=== PATIENT | male | born 1950 | race African-American/Black ===

== ENCOUNTER 2016-12-16 13:02 | Inpatient (IN) | payer OTHER, MEDICARE ==
[~2016-12-16] VITALS: Ht 182.9 cm; Wt 162.6 kg
[~2016-12-16 13:02] MED LIST: AMLO10TA2 PO; COLC1CAP3 PO; FURO1TAB60 PO; HYDR50TA15 PO; LANTUS2P SQ; LISI-515 PO; METF1000 PO; OMEP40CA2 PO; PRED20 PO; SPIR25TA PO; TOPR100T PO; VENTAER INH; ZOCO40TA PO
[2016-12-16 13:32] VITALS: BP 141/82; PULSE 88; RESP 19; TEMP 98.1; O2SAT 97
[2016-12-16] MEDS ORDERED: SODIUM CHLORIDE 0.9% FLUSH 5 ML FLUSH IVF PRN (14:15)
--- NOTE | 2016-12-16 14:22 | PD ---
HPI Chief Complaint: General Weakness Time Seen by Provider: 14:19 Travel History International Travel<30 days: No Contact w/Intl Traveler<30days: No Traveled to known affect area: No History of Present Illness HPI Patient comes in by EMS complaining of bilateral lower extremity pain from his knees down. Patient denies any known trauma. Patient reports pain began approximately 4 days ago. Patient describes achy like pain radiates back and forth between his knees and ankles. Patient denies doing anything for this aside from taking his pain medication. Pain is worse with walking. Denies any fevers, chest pain, shortness of breath, dyspnea on exertion, or abdominal pain. Patient reports he is a diabetic and his blood sugars are running in the low 100s. PFSH Past Medical History Arthritis: Yes Blood Disorders: No Cancer: Yes (PROSTATE 5 YEARS AGO ) Cardiovascular Problems: Yes Chest Pain: Yes Congestive Heart Failure: Yes COPD: Yes Diabetes: Yes Patient Takes Glucophage: Yes Diminished Hearing: No Endocrine: Yes Gastrointestinal Disorders: Yes (MORBID OBESITY) Gout: Yes Genitourinary: Yes Hypertension: Yes Immune Disorder: No Implanted Vascular Access Dvce: No Musculoskeletal: Yes Neurologic: No Psychiatric: No Reproductive: No Respiratory: Yes Radiation Therapy: Yes Sleep Apnea: Yes Tetanus Vaccination: Unknown Influenza Vaccination: No Past Surgical History Other Surgery: Yes (RT HAND) Social History Alcohol Use: No Tobacco Use: Yes (1 PPD) Substance Use: No Allergies-Medications (Allergen,Severity, Reaction): Coded Allergies: *MDRO Multi-Drug Resistant Organism (Verified Adverse Reaction, Unknown, ) MRSA (wounds) - 03/20/13 MRSA PCR Screen NEGATIVE - 03/19/16, 03/21/2016 CLEARED PER INFECTION CONTROL Reported Meds & Prescriptions Reported Meds & Active Scripts Active Reported Amlodipine (Amlodipine Besylate) 10 Mg Tab 10 Mg PO DAILY Ventolin Hfa 18 GM Inh (Albuterol Sulfate) 90 Mcg/Act Aer 2 Puff INH Q6H PRN Lantus Inj (Insulin Glargine) 1,000 Unit/10 Ml Vial 55 Units SQ HS Zocor (Simvastatin) 40 Mg Tab 40 Mg PO HS Toprol XL (Metoprolol Succinate) 100 Mg Tab 100 Mg PO DAILY Lisinopril 20 Mg Tab 20 Mg PO DAILY Omeprazole 40 Mg Cap 40 Mg PO DAILY Metformin (Metformin HCl) 1,000 Mg Tab 1,000 Mg PO BID With meals Lasix (Furosemide) 40 Mg Tab 40 Mg PO DAILY Spironolactone 25 Mg Tab 25 Mg PO DAILY Hydralazine (Hydralazine HCl) 50 Mg Tab 50 Mg PO Q8HR Take with a meal Review of Systems Except as stated in HPI: all other systems reviewed are Neg Physical Exam Narrative GENERAL: Well-developed, overly nourished, in no acute distress, and non-ill appearing. SKIN: Warm and dry. HEAD: Atraumatic. Normocephalic. EYES: Pupils equal and round. EOMI. No scleral icterus. No injection or drainage. ENT: No nasal bleeding or discharge. Mucous membranes pink and moist. NECK: Trachea midline. Supple. No nuclear rigidity. CARDIOVASCULAR: Dorsal pulses also intact bilaterally. Capillary refill less than 2 seconds. Trace pedal edema bilaterally. RESPIRATORY: No accessory muscle use. No respiratory distress. MUSCULOSKELETAL: No obvious deformities. No clubbing. No cyanosis. Trace edema bilateral lower extremities. Full range of motion. Negative Homans sign. NEUROLOGICAL: Awake and alert. No obvious cranial nerve deficits. Motor grossly within normal limits. Normal speech. PSYCHIATRIC: Appropriate mood and affect; insight and judgment normal. Data Data Last Documented VS Vital Signs Date Time Temp Pulse Resp B/P Pulse Ox O2 Delivery O2 Flow Rate FiO2 12/16/16 17:59 84 18 138/85 98 Nasal Cannula 2 12/16/16 13:32 98.1 Orders Basic Metabolic Panel (Bmp) (12/16/16 14:13) Complete Blood Count With Diff (12/16/16 14:13) Ecg Monitoring (12/16/16 14:13) Iv Access Insert/Monitor (12/16/16 14:13) Oximetry (12/16/16 14:13) Sodium Chloride 0.9% Flush (Ns Flush) (12/16/16 14:15) Creatine Kinase (Cpk) (12/16/16 14:13) Act Partial Throm Time (Ptt) (12/16/16 14:18) Prothrombin Time / Inr (Pt) (12/16/16 14:18) D-Dimer (12/16/16 14:18) CKMB (12/16/16 14:25) CKMB% (12/16/16 14:25) Us Leg Venous Doppler Bilat (12/16/16 ) Acetamin-Hydrocod 325-5 Mg (Artemas 5-325 (12/16/16 15:45) Sodium Chlor 0.9% 1000 Ml Inj (Ns 1000 M (12/16/16 18:00) Labs Laboratory Tests Test 12/16/16 14:25 White Blood Count 13.2 TH/MM3 Red Blood Count 3.78 MIL/MM3 Hemoglobin 11.7 GM/DL Hematocrit 35.2 % Mean Corpuscular Volume 93.0 FL Mean Corpuscular Hemoglobin 31.0 PG Mean Corpuscular Hemoglobin 33.4 % Concent Red Cell Distribution Width 15.3 % Platelet Count 172 TH/MM3 Mean Platelet Volume 10.0 FL Neutrophils (%) (Auto) 74.5 % Lymphocytes (%) (Auto) 13.0 % Monocytes (%) (Auto) 11.3 % Eosinophils (%) (Auto) 0.5 % Basophils (%) (Auto) 0.7 % Neutrophils # (Auto) 9.8 TH/MM3 Lymphocytes # (Auto) 1.7 TH/MM3 Monocytes # (Auto) 1.5 TH/MM3 Eosinophils # (Auto) 0.1 TH/MM3 Basophils # (Auto) 0.1 TH/MM3 CBC Comment DIFF FINAL Differential Comment Prothrombin Time 11.2 SEC Prothromb Time International 1.0 RATIO Ratio Activated Partial 32.5 SEC Thromboplast Time D-Dimer Quantitative (PE/DVT) 9.60 MG/L FEU Sodium Level 143 MEQ/L Potassium Level 4.5 MEQ/L Chloride Level 109 MEQ/L Carbon Dioxide Level 22.5 MEQ/L Anion Gap 12 MEQ/L Blood Urea Nitrogen 46 MG/DL Creatinine 1.75 MG/DL Estimat Glomerular Filtration 48 ML/MIN Rate Random Glucose 116 MG/DL Calcium Level 8.9 MG/DL Total Creatine Kinase 2444 U/L Creatine Kinase MB 6.1 NG/ML Creatine Kinase MB % 0.2 % [facility] Medical Decision Making Medical Screen Exam Complete: Yes Emergency Medical Condition: Yes Differential Diagnosis Rhabdomyolysis, chronic pain, DVT, electrolyte abnormality, other Narrative Course Patient's [place] E-[employer] was reviewed no patient received a three-day supply of hydrocodone on the th of last month. Discussed this with patient reports he got refills medication has been taking it with no improvement of his symptoms. Patient was examined. Initial laboratory neurological status were ordered and reviewed. Discussed patient with Dr. Rice recommended the patient placed in observations for IV hydration and further evaluation of his rhabdo. Discussed all findings and plan care of patient, who is agreeable for admission. All questions were answered. Physician Communication Physician Communication [phone] Messer, who is agreeable to admit the patient. Diagnosis Primary Impression: Rhabdomyolysis Qualified Code: M62.82 - Non-traumatic rhabdomyolysis Martin Nunez Dec 16, 2016 14:22
[2016-12-16 14:40] LABS: AUTOMATED NEUTROPHIL # 9.8 TH/MM3 (1.8-7.7); BASOPHIL # 0.1 TH/MM3 (0-0.2); BASOPHIL % 0.7 % (0.0-2.0); EOSINOPHIL # 0.1 TH/MM3 (0-0.4); EOSINOPHIL % 0.5 % (0.0-4.0); HEMATOCRIT 35.2 % (39.0-51.0); HEMO FLAGS DIFF FINAL; LYMPHOCYTE # 1.7 TH/MM3 (1.0-4.8); MEAN CORPUSCULAR HGB CONC 33.4 % (32.0-36.0); MONO % 11.3 % (0.0-8.0); NEUT % 74.5 % (16.0-70.0); PLATELET COUNT 172 TH/MM3 (150-450); RED BLOOD COUNT 3.78 MIL/MM3 (4.50-5.90); RED CELL DISTRIBUTION WIDTH 15.3 % (11.6-17.2); WHITE BLOOD COUNT 13.2 TH/MM3 (4.0-11.0)
[2016-12-16 15:08] LABS: BICARBONATE 22.5 MEQ/L (21.0-32.0)
[2016-12-16 15:09] LABS: POTASSIUM 4.5 MEQ/L (3.5-5.1)
[2016-12-16 15:13] LABS: APTT (PATIENT) 32.5 SEC (24.3-30.1); PROTHROMBIN TIME - PATIENT 11.2 SEC (9.8-11.6)
[2016-12-16 15:42] LABS: CKMB 6.1 NG/ML (0.5-3.6)
[2016-12-16] MEDS ORDERED: ACETAMINOPHEN/HYDROcodone 325 MG/5 MG TAB PO ONE (15:45)
--- NOTE | 2016-12-16 17:38 | RADRPT ---
EXAM DATE/TIME: 12/16/2016 17:07 [facility] COMPARISON: No previous studies available for comparison. INDICATIONS : Bilateral lower extremity swelling. MEDICAL HISTORY : Congestive heart failure. Carcinoma, prostate. Chronic obstructive pulmonary disease. Chest pain. Sle ep apnea. Dyspnea. HTN. Morbid obesity. Arthritis. Gout. Diabetes. MRSA. SURGICAL HISTORY : Right carpel tunnel surgery. Right hand surgery. Radiation therapy. ENCOUNTER: Subsequent ACUITY: 4 - 6 days PAIN SCORE: 10/10 LOCATION: Bilateral leg. TECHNIQUE: Venous ultrasound of the left and right leg was performed from the inguinal ligament to the proximal calf. Real-time, color Doppler and spectral tracing, compression and augmentation techniques were us ed. FINDINGS: RIGHT LEG: There is normal compressibility of the deep venous system from the inguinal region to the proximal ca lf. No echogenic clot is seen in the lumen of the common femoral, femoral, popliteal, and posterior tibial veins. There is a normal response of the venous system to proximal and distal augmentation an d respiration. LEFT LEG: There is normal compressibility of the deep venous system from the inguinal region to the proximal ca lf. No echogenic clot is seen in the lumen of the common femoral, femoral, popliteal, and posterior tibial veins. There is a normal response of the venous system to proximal and distal augmentation an d respiration. CONCLUSION: Negative for deep venous thrombosis.. Alex Trejo MD FACR on December 16, 2016 at 17:34 Board Certified Radiologist. This report was verified electronically.
[2016-12-16 17:59] VITALS: BP 138/85; PULSE 84; RESP 18; O2SAT 98
[2016-12-16] MEDS ORDERED: SODIUM CHLOR 0.9% 1000 ML INJ 1,000 ML IV ONE (18:00)
--- NOTE | 2016-12-16 18:55 | HHI.HP ---
HPI Service [facility] Primary Care Physician JENNYFER Cummings Admission Diagnosis rhabdomyolysis Diagnoses: Chief Complaint: leg pain (Mamie Marrero) Travel History International Travel<30 Days: No Contact w/Intl Traveler <30 Da: No Traveled to Known Affected Are: No (Mamie Marrero) History of Present Illness This is a pleasant 65-year-old gentleman with past medical history which includes hypertension, diabetes mellitus, chronic back pain, morbid obesity, COPD does not wear supplemental oxygen, prostate cancer, CHF, chronic peripheral edema, renal insufficiency. Patient presented to the emergency room via EMS complaining of bilat lower extremity pain from the knees down, that started approximately 5 days ago, denies any falls, no trauma. Patient is somewhat of a poor historian, he is somnolent, information is obtained from the medical record. Patient indicates that he has been laying in bed, has had very little to eat and drink. He has history of osteoarthritis. Pain is achy, he does have chronic leg edema which is unchanged. Denies any chest pain, no excessive shortness of breath, no fever, no chills, no palpitations. Patient states that his legs hurt when he walks therefore he has not been very active. His brother and sister have come to his home to check on him. He endorses loose stools, non-watery, no abdominal pain, no nausea, no vomiting. Indicates his blood sugars have been running low in the 100s. He didn't take his medications today but has been compliant the rest of the other days. In the emergency room, patient was evaluated and was noted with acute renal injury, patient does have some renal insufficiency. He was notable leukocytosis, WBC of 13.2, hemoglobin 11.7, hematocrit 35.2. Patient was noted and rhabdomyolysis, CPK 2444. Ultrasound of the lower extremities were negative for DVT. Patient was hemodynamically stable, no fevers. Patient received 1 L of IV fluids. He received [place], indicates his pain is slightly improved. Patient is admitted for further evaluation and treatment. (Mamie Marrero) Review of Systems ROS Limitations: Poor Historian Cardiovascular: COMPLAINS OF: Dyspnea on Exertion, Lower Extremity Edema Gastrointestinal: COMPLAINS OF: Diarrhea Musculoskeletal: COMPLAINS OF: Joint pain (Mamie Marrero) Past Family Social History Past Medical History hypertension, diabetes mellitus, chronic back pain, morbid obesity, COPD does not wear supplemental oxygen prostate cancer treated with medication and radiation treatment CHF, chronic leg edema. Past Surgical History Right hand surgery 2, circumcision Reported Medications Reported Meds & Active Scripts Active Reported Amlodipine (Amlodipine Besylate) 10 Mg Tab 10 Mg PO DAILY Ventolin Hfa 18 GM Inh (Albuterol Sulfate) 90 Mcg/Act Aer 2 Puff INH Q6H PRN Lantus Inj (Insulin Glargine) 1,000 Unit/10 Ml Vial 55 Units SQ HS Zocor (Simvastatin) 40 Mg Tab 40 Mg PO HS Toprol XL (Metoprolol Succinate) 100 Mg Tab 100 Mg PO DAILY Lisinopril 20 Mg Tab 20 Mg PO DAILY Omeprazole 40 Mg Cap 40 Mg PO DAILY Metformin (Metformin HCl) 1,000 Mg Tab 1,000 Mg PO BID With meals Lasix (Furosemide) 40 Mg Tab 40 Mg PO DAILY Spironolactone 25 Mg Tab 25 Mg PO DAILY Hydralazine (Hydralazine HCl) 50 Mg Tab 50 Mg PO Q8HR Take with a meal (Mamie Marrero) Allergies: Coded Allergies: *MDRO Multi-Drug Resistant Organism (Verified Adverse Reaction, Unknown, ) MRSA (wounds) - 03/20/13 MRSA PCR Screen NEGATIVE - 03/19/16, 03/21/2016 CLEARED PER INFECTION CONTROL Active Ordered Medications Inpatient Medications Acetaminophen/ Hydrocodone Bitart 1 tab 1 tab ONCE ONCE PO Last administered on 12/16/16 15:52; Start 12/16/16 at 15:45; Stop 12/16/16 at 15:46; Status DC IV Flush (NS Flush) 2 ml UNSCH PRN IVF FLUSH AFTER USING IV ACCESS; Start 12/16 at 14:15 Sodium Chloride (NS 1000 ml Inj) 1,000 ml @ 999 mls/hr BOLUS ONCE IV Last administered on 12/16/16 18:03; Start 12/16/16 at 18:00; Stop 12/16/16 at 19:00 Family History Patient reports he never knew his father Mother at 39 secondary to breast cancer Social History Patient lives alone Denies EtOH use Denies illicit drug use Smokes 1 pack per day for the past 40 years (Mamie Marrero) Physical Exam Vital Signs Vital Signs Date Time Temp Pulse Resp B/P Pulse Ox O2 Delivery O2 Flow Rate FiO2 12/16/16 17:59 84 18 138/85 98 Nasal Cannula 2 12/16/16 13:33 Nasal Cannula 2 12/16/16 13:32 98.1 88 19 141/82 97 Physical Exam GENERAL: Morbidly obese male, somnolent, awakes to voice. SKIN: Skin dry, poor turgor. Skin to lower extremities is dry, chronic lymphedema, venous discoloration. Toe nails thickened, long. HEAD: Atraumatic. Normocephalic. No temporal or scalp tenderness. EYES: Pupils equal round and reactive. Extraocular motions intact. No scleral icterus. No injection or drainage. ENT: Nose without bleeding, purulent drainage or septal hematoma. Throat without erythema, tonsillar hypertrophy or exudate. Uvula midline. Airway patent. NECK: Trachea midline. No JVD or lymphadenopathy. Supple, nontender, no meningeal signs. CARDIOVASCULAR: S1-S2, unable to detect any murmurs rubs or gallops. Bilateral lower extremities with 1-2+ edema, pedal pulses +1 bilaterally. RESPIRATORY: Clear to auscultation. Breath sounds equal bilaterally. No wheezes , rales, or rhonchi. GASTROINTESTINAL: Abdomen soft, non-tender, nondistended. No hepato-splenomegaly , or palpable masses. No guarding. MUSCULOSKELETAL: Extremities without clubbing, cyanosis. C/O bilat knee pain with flexion, no joint deformity, no effusion. No calf tenderness. Negative Homans sign bilaterally. NEUROLOGICAL: Awakes to voice, oriented x 3. Poor historian. Following commands , no focal deficits. Laboratory Laboratory Tests Test 12/16/16 14:25 White Blood Count 13.2 Red Blood Count 3.78 Hemoglobin 11.7 Hematocrit 35.2 Mean Corpuscular Volume 93.0 Mean Corpuscular Hemoglobin 31.0 Mean Corpuscular Hemoglobin 33.4 Concent Red Cell Distribution Width 15.3 Platelet Count 172 Mean Platelet Volume 10.0 Neutrophils (%) (Auto) 74.5 Lymphocytes (%) (Auto) 13.0 Monocytes (%) (Auto) 11.3 Eosinophils (%) (Auto) 0.5 Basophils (%) (Auto) 0.7 Neutrophils # (Auto) 9.8 Lymphocytes # (Auto) 1.7 Monocytes # (Auto) 1.5 Eosinophils # (Auto) 0.1 Basophils # (Auto) 0.1 CBC Comment DIFF FINAL Differential Comment Prothrombin Time 11.2 Prothromb Time International 1.0 Ratio Activated Partial 32.5 Thromboplast Time D-Dimer Quantitative (PE/DVT) 9.60 Sodium Level 143 Potassium Level 4.5 Chloride Level 109 Carbon Dioxide Level 22.5 Anion Gap 12 Blood Urea Nitrogen 46 Creatinine 1.75 Estimat Glomerular Filtration 48 Rate Random Glucose 116 Calcium Level 8.9 Total Creatine Kinase 2444 Creatine Kinase MB 6.1 Creatine Kinase MB % 0.2 (Mamie Marrero) Result Diagram: 12/16/16 1425 12/16/16 1425 Imaging Last Impressions Lower Extremity Ultrasound 12/16/16 0000 Signed Impressions: Service Date/Time: Friday, December 16, 2016 17:07 - CONCLUSION: Negative for deep venous thrombosis.. Alex Trejo MD FACR (Mamie Marrero) Assessment and Plan Problem List: (1) Rhabdomyolysis (2) Szyaj-mg-cfupfqw kidney injury (3) Knee pain (4) Dehydration (5) Morbid obesity (6) Peripheral edema (7) Diabetes 1.5, managed as type 2 (8) Hx of congestive heart failure (9) HTN (hypertension) Assessment and Plan Admit to Dr. Messer 66-year-old morbidly obese male, presented to the emergency room complaining of bilateral knee pain, has been laying in bed, not been able to eat or drink much. In the emergency room, patient was evaluated and was noted with acute on chronic renal injury, elevated CPK consistent with rhabdomyolysis. Patient receptive 1 L of normal saline. -Continue with cautious hydration, history of CHF Follow BMP, CPK -Monitor renal function closely -reports diarrhea, will checks stools for cdiff Acute on chronic renal injury, secondary to dehydration, rhabdomyolysis Monitor renal function -Avoid NSAIDs, nephrotoxic agents, hold diuretics, hold metformin Bilateral knee pain, history of OA Pain management Type 2 diabetes Accu-Cheks before meals and at bedtime with low-dose insulin therapy as needed Chronic CHF, stable Monitor for fluid overload Resume diuretics when renal function is stable Hypertension, blood pressure stable Monitor blood pressure, resume medications as indicated Morbid obesity -Patient guidance counselor about his weight Heparin for DVT prophylaxis PPI for GI prophylaxis Physical therapy for evaluation and treatment Plan of care has been discussed with the patient, attending and registered nurse. Further management of the patient will be dependent on the hospital course This patient was seen by myself and Dr. Messer, this H&P is written on his behalf (Mamie Marrero) Assessment and Plan PT WAS SEEN & EXAMINED YESTERDAY FORGOT TO SIGN CHART d/w PT d/w ER PA d/w Mamie' agree w above will f/u (Mari Messer MD) Problem Qualifiers (1) Rhabdomyolysis: Qualified Code: M62.82 - Non-traumatic rhabdomyolysis (2) Knee pain: Qualified Code: M25.561 - Chronic pain of both knees (3) Morbid obesity: Qualified Code: E66.01 - Morbid obesity, unspecified obesity type (4) HTN (hypertension): Qualified Code: I10 - Essential hypertension Mamie Marrero Dec 16, 2016 18:55 Mari Messer MD Dec 17, 2016 09:32
[2016-12-16] MEDS ORDERED: NALOXONE HCL 0.4 MG/ML AMP IV PRN (19:00)
[2016-12-16] MEDS ORDERED: DEXTROSE 50% IN WATER 50 ML VIAL(D50) IV PUSH PRN (19:00)
[2016-12-16] MEDS ORDERED: SODIUM CHLORIDE 0.9% FLUSH 5 ML FLUSH FLUSH PRN (19:00)
[2016-12-16] MEDS ORDERED: ONDANSETRON HCL 4 MG/2 ML VIAL IVP PRN (19:00)
[2016-12-16] MEDS ORDERED: GLUCAGON 1 MG/ML VIAL OTHER PRN (19:00)
[2016-12-16 19:56] VITALS: BP 140/65; PULSE 80; RESP 18; O2SAT 98
[2016-12-16] MEDS: INSULIN ASPART SUPPLEMENTAL SCALE SQ SCH (21:00)
[2016-12-16] MEDS: SODIUM CHLORIDE 0.9% FLUSH 5 ML FLUSH FLUSH SCH (22:21)
[2016-12-16] MEDS: SODIUM CHLOR 0.9% 1000 ML INJ 1,000 ML IV SCH (22:22)
[2016-12-16] MEDS: hydrALAZINE HCL 50 MG TAB PO SCH (22:22)
[2016-12-16] MEDS: HEPARIN SODIUM - SQ 10,000 UNITS/ML VIAL SQ SCH (22:22)
[2016-12-16 22:30] VITALS: BP 155/78; PULSE 87; RESP 18; TEMP 98; O2SAT 98
[2016-12-17] VITALS (7 sets, daily range): BP systolic 128–155; BP diastolic 72–79; PULSE 67–96; RESP 20–21; TEMP 98–98.8; O2SAT 95–98
[2016-12-17] MEDS: hydrALAZINE HCL 50 MG TAB PO SCH ×3 (06:00→21:15)
[2016-12-17] MEDS: INSULIN ASPART SUPPLEMENTAL SCALE SQ SCH ×4 (06:18→21:00)
[2016-12-17 07:24] LABS: AUTOMATED NEUTROPHIL # 7.8 TH/MM3 (1.8-7.7); BASOPHIL # 0.1 TH/MM3 (0-0.2); BASOPHIL % 0.9 % (0.0-2.0); EOSINOPHIL # 0.3 TH/MM3 (0-0.4); EOSINOPHIL % 2.6 % (0.0-4.0); HEMATOCRIT 32.7 % (39.0-51.0); HEMO FLAGS DIFF FINAL; LYMPH % 15.1 % (9.0-44.0); LYMPHOCYTE # 1.7 TH/MM3 (1.0-4.8); MEAN CELL VOLUME 95.9 FL (80.0-100.0); MEAN CORPUSCULAR HEMOGLOBIN 30.4 PG (27.0-34.0); MEAN CORPUSCULAR HGB CONC 31.6 % (32.0-36.0); MONO % 11.7 % (0.0-8.0); NEUT % 69.7 % (16.0-70.0); PLATELET COUNT 166 TH/MM3 (150-450); RED BLOOD COUNT 3.41 MIL/MM3 (4.50-5.90); RED CELL DISTRIBUTION WIDTH 15.1 % (11.6-17.2); WHITE BLOOD COUNT 11.3 TH/MM3 (4.0-11.0)
[2016-12-17 07:54] LABS: BICARBONATE 25.1 MEQ/L (21.0-32.0); POTASSIUM 4.5 MEQ/L (3.5-5.1)
[2016-12-17 08:24] LABS: CKMB 2.9 NG/ML (0.5-3.6)
[2016-12-17] MEDS: SODIUM CHLORIDE 0.9% FLUSH 5 ML FLUSH FLUSH SCH ×2 (09:00→21:00)
--- NOTE | 2016-12-17 09:03 | HHI.PR ---
Subjective Remarks legs very weak, can't lift off bed right ankle is painful voiding okay no cp no sob no abd. pain no fever no acute changes overnight no diarrhea Objective Objective Results - Vital Signs Date Time Temp Pulse Resp B/P Pulse Ox O2 Delivery O2 Flow Rate FiO2 12/17/16 05:00 98.8 96 21 128/79 98 12/17/16 03:19 96 12/17/16 02:43 98.0 67 20 147/78 97 12/16/16 22:30 98.0 87 18 155/78 98 12/16/16 19:56 80 18 140/65 98 Nasal Cannula 2 12/16/16 17:59 84 18 138/85 98 Nasal Cannula 2 12/16/16 13:33 Nasal Cannula 2 12/16/16 13:32 98.1 88 19 141/82 97 I/O 12/16/16 12/16/16 12/16/16 12/17/16 12/17/16 12/17/16 07:00 15:00 23:00 07:00 15:00 23:00 Intake Total 240 ml Balance 240 ml Intake Oral 240 ml # Voids 2 Result Diagram: 12/17/16 0710 12/17/16 0710 Imaging Last Impressions Lower Extremity Ultrasound 12/16/16 0000 Signed Impressions: Service Date/Time: Friday, December 16, 2016 17:07 - CONCLUSION: Negative for deep venous thrombosis.. Alex Trejo MD FACR Other Results Laboratory Tests Test 12/16/16 12/17/16 14:25 07:10 White Blood Count 13.2 11.3 Red Blood Count 3.78 3.41 Hemoglobin 11.7 10.4 Hematocrit 35.2 32.7 Mean Corpuscular Volume 93.0 95.9 Mean Corpuscular Hemoglobin 31.0 30.4 Mean Corpuscular Hemoglobin 33.4 31.6 Concent Red Cell Distribution Width 15.3 15.1 Platelet Count 172 166 Mean Platelet Volume 10.0 9.7 Neutrophils (%) (Auto) 74.5 69.7 Lymphocytes (%) (Auto) 13.0 15.1 Monocytes (%) (Auto) 11.3 11.7 Eosinophils (%) (Auto) 0.5 2.6 Basophils (%) (Auto) 0.7 0.9 Neutrophils # (Auto) 9.8 7.8 Lymphocytes # (Auto) 1.7 1.7 Monocytes # (Auto) 1.5 1.3 Eosinophils # (Auto) 0.1 0.3 Basophils # (Auto) 0.1 0.1 CBC Comment DIFF FINAL DIFF FINAL Differential Comment Prothrombin Time 11.2 Prothromb Time International 1.0 Ratio Activated Partial 32.5 Thromboplast Time D-Dimer Quantitative (PE/DVT) 9.60 Sodium Level 143 145 Potassium Level 4.5 4.5 Chloride Level 109 113 Carbon Dioxide Level 22.5 25.1 Anion Gap 12 7 Blood Urea Nitrogen 46 41 Creatinine 1.75 1.35 Estimat Glomerular Filtration 48 64 Rate Random Glucose 116 133 Calcium Level 8.9 8.8 Total Creatine Kinase 2444 1148 Creatine Kinase MB 6.1 2.9 Creatine Kinase MB % 0.2 0.3 ROS General: Weakness Neuro/MS: Other (leg pain , right ankle pain ) Physical Exam Physical Exam GENERAL: Morbidly obese male, somnolent, awakes to voice. SKIN: Skin dry, poor turgor. Skin to lower extremities is dry, chronic lymphedema, venous discoloration. Toe nails thickened, long. HEAD: Atraumatic. Normocephalic. No temporal or scalp tenderness. EYES: Pupils equal round and reactive. Extraocular motions intact. No scleral icterus. No injection or drainage. ENT: Nose without bleeding, purulent drainage or septal hematoma. Throat without erythema, tonsillar hypertrophy or exudate. Uvula midline. Airway patent. NECK: Trachea midline. No JVD or lymphadenopathy. Supple, nontender, no meningeal signs. CARDIOVASCULAR: S1-S2, unable to detect any murmurs rubs or gallops. Bilateral lower extremities with 1-2+ edema, pedal pulses +1 bilaterally. RESPIRATORY: Bibasilar rales, no resp. distress GASTROINTESTINAL: Abdomen soft, non-tender, nondistended. No hepato-splenomegaly , or palpable masses. No guarding. MUSCULOSKELETAL: Extremities without clubbing, cyanosis. C/O bilat knee pain with flexion, no joint deformity, no effusion. No calf tenderness. Negative Homans sign bilaterally. Can't lift legs off bed, able to dorsiflex. C/O right ankle pain with dorsiflexion NEUROLOGICAL: Awakes to voice, oriented x 3. Poor historian. Following commands , no focal deficits. Urinary Catheter: No Vascular Central Line Catheter: No A/P Diagnosis: (1) Rhabdomyolysis (2) Cbizd-jm-rksriut kidney injury (3) Knee pain (4) Dehydration (5) Morbid obesity (6) Peripheral edema (7) Diabetes 1.5, managed as type 2 (8) Hx of congestive heart failure (9) HTN (hypertension) Assessment and Plan 66-year-old morbidly obese male, presented to the emergency room complaining of bilateral knee pain, has been laying in bed, not been able to eat or drink much. In the emergency room, patient was evaluated and was noted with acute on chronic renal injury, elevated CPK consistent with rhabdomyolysis. Patient receptive 1 L of normal saline. -Continue with cautious hydration, history of CHF, oct. IVF to 30/hr. CPK trending down, continue to monitor -Monitor renal function closely-improving. Acute on chronic renal injury, secondary to dehydration, rhabdomyolysis Monitor renal function -Avoid NSAIDs, nephrotoxic agents, hold diuretics, hold metformin Bilateral knee pain, history of OA Pain management -c/o right ankle pain, will check xray 3 view Type 2 diabetes Accu-Cheks before meals and at bedtime with low-dose insulin therapy as needed Chronic CHF, stable Monitor for fluid overload, rales noted at bases -Oct. IVF to KVO Resume diuretics today Hypertension, blood pressure stable Monitor blood pressure, resume medications as indicated Morbid obesity -Patient admitting counselor about his weight Heparin for DVT prophylaxis PPI for GI prophylaxis Physical therapy for evaluation and treatment-d/w therapist, pt. barely able to stand, very deconditioned. Change to inpatient admission, pt. at risk for complications due to comorbidities-obesity, CHF, DM II, CKD. Pt. may go into renal failure, develop pressure sores, further disability. Requires admission for IVF, monitoring of renal function, PT. Anticipated discharge back to home with HHC/PT vs SNF when stable. D/W RN D/W Dr. Messer D/W pt. This patient was seen by myself and Dr. Messer, this note is written on his behalf Problem Qualifiers (1) Rhabdomyolysis: Qualified Code: M62.82 - Non-traumatic rhabdomyolysis (2) Knee pain: Qualified Code: M25.561 - Chronic pain of both knees (3) Morbid obesity: Qualified Code: E66.01 - Morbid obesity, unspecified obesity type (4) HTN (hypertension): Qualified Code: I10 - Essential hypertension Mamie Marrero Dec 17, 2016 09:03
[2016-12-17] MEDS: PANTOPRAZOLE SOD 40 MG DELAYED RELEASE TAB PO SCH (09:56)
[2016-12-17] MEDS: METOPROLOL SUCCINATE 50 MG EXTENDED RELEASE TAB PO SCH (09:56)
[2016-12-17] MEDS: HEPARIN SODIUM - SQ 10,000 UNITS/ML VIAL SQ SCH ×2 (09:57→21:15)
[2016-12-17] MEDS: FUROSEMIDE 40 MG TAB PO SCH (09:57)
[2016-12-17] MEDS: SPIRONOLACTONE 25 MG TAB PO SCH (10:36)
--- NOTE | 2016-12-17 13:10 | RADRPT ---
EXAM DATE/TIME: 12/17/2016 12:17 [facility] COMPARISON: No previous studies available for comparison. INDICATIONS : Right ankle pain, no known injury. MEDICAL HISTORY : Arthritis. Gout. Diabetes. SURGICAL HISTORY : None. ENCOUNTER: Initial ACUITY: 3 days PAIN SCORE: 7/10 LOCATION: Right ankle. FINDINGS: Soft tissue swelling is present in a diffuse fashion. There is no evidence of acute fracture. Bony mi neralization is normal. There is dorsal beaking of the tarsal bones. CONCLUSION: Mild degenerative changes as described above. There is no evidence of acute fracture. Ji Wellington MD on December 17, 2016 at 13:07 Board Certified Radiologist. This report was verified electronically.
[2016-12-17] MEDS: SODIUM CHLOR 0.9% 1000 ML INJ 1,000 ML IV SCH (20:00)
[2016-12-17] MEDS: ACETAMINOPHEN 325 MG TAB PO PRN (21:16)
[2016-12-18] VITALS (8 sets, daily range): BP systolic 130–155; BP diastolic 65–85; PULSE 68–87; RESP 18–20; TEMP 97.4–98.8; O2SAT 94–98
[2016-12-18] MEDS: hydrALAZINE HCL 50 MG TAB PO SCH ×3 (05:36→21:03)
[2016-12-18] MEDS: INSULIN ASPART SUPPLEMENTAL SCALE SQ SCH ×4 (05:41→21:00)
[2016-12-18 07:48] LABS: HEMATOCRIT 31.2 % (39.0-51.0); MEAN CELL VOLUME 95.2 FL (80.0-100.0); MEAN CORPUSCULAR HEMOGLOBIN 30.8 PG (27.0-34.0); MEAN CORPUSCULAR HGB CONC 32.4 % (32.0-36.0); PLATELET COUNT 165 TH/MM3 (150-450); RED BLOOD COUNT 3.28 MIL/MM3 (4.50-5.90); REVIEW FLAG FINAL; WHITE BLOOD COUNT 9.7 TH/MM3 (4.0-11.0)
[2016-12-18 08:14] LABS: BICARBONATE 24.8 MEQ/L (21.0-32.0); POTASSIUM 4.6 MEQ/L (3.5-5.1)
[2016-12-18 08:31] LABS: CKMB 1.2 NG/ML (0.5-3.6)
--- NOTE | 2016-12-18 08:49 | HHI.PR ---
Subjective History of Present Illness feel little better legs are less painful , able to move them better no fever or chills no CP or SOB no cough or sputum no n/v good appetite no diarrhea offers no other c/o Vitals/Results Intake & Output 12/17/16 12/17/16 12/18/16 15:00 23:00 07:00 Intake Total 1210 ml Output Total 1240 ml Balance -30 ml Intake Oral 1110 ml IV Total 100 ml Output Urine Total 1240 ml # Bowel Movements 1 Vital Signs Vital Signs Date Time Temp Pulse Resp B/P Pulse Ox O2 Delivery O2 Flow Rate FiO2 12/18/16 05:33 98.0 82 18 147/77 98 12/18/16 01:38 98.8 87 18 141/73 98 12/17/16 22:18 16 12/17/16 21:07 98.0 78 21 155/74 97 12/17/16 21:00 80 12/17/16 12:58 98.2 83 20 153/72 95 CBC/BMP: 12/18/16 0620 12/18/16 0620 Lab Results Laboratory Tests Test 12/18/16 06:20 White Blood Count 9.7 TH/MM3 Red Blood Count 3.28 MIL/MM3 Hemoglobin 10.1 GM/DL Hematocrit 31.2 % Mean Corpuscular Volume 95.2 FL Mean Corpuscular Hemoglobin 30.8 PG Mean Corpuscular Hemoglobin 32.4 % Concent Red Cell Distribution Width 15.0 % Platelet Count 165 TH/MM3 Mean Platelet Volume 10.8 FL Sodium Level 144 MEQ/L Potassium Level 4.6 MEQ/L Chloride Level 112 MEQ/L Carbon Dioxide Level 24.8 MEQ/L Anion Gap 7 MEQ/L Blood Urea Nitrogen 39 MG/DL Creatinine 1.22 MG/DL Estimat Glomerular Filtration 72 ML/MIN Rate Random Glucose 125 MG/DL Calcium Level 8.3 MG/DL Total Creatine Kinase 414 U/L Creatine Kinase MB 1.2 NG/ML Creatine Kinase MB % 0.3 % Physical Exam General General Appearance: No Acute Distress, Comfortable, Obese Eyes Eye Exam: Pupils Equal, Sclera White, Extraocular Movement Intact Ears & Nose Ears & Nose Exam: Nasal Mucosa [place] Throat Throat Exam: Oral Mucosa [place] & Moist Neck Neck Exam: Neck Supple, Trachea Midline Pulmonary Resp Exam: Clear Bilaterally, Breath Sounds Equal Cardiology CV Exam: Regular, Normal Sinus Rhythm Gastrointestinal/Abdomen GI Exam: Soft, Non-Tender, Bowel Sounds Present Integumentary Skin Exam: Warm, Dry Skin Remarks thickened discolored skin b/l south Extremeties Extremities Exam: Moderate Edema, Pitting Edema Neurologic Neuro Exam: Alert, Awake, Oriented, Speech Clear, Moving All Extremities Psychiatric Psych Exam: Appropriate Responses VTE Prophylaxis VTE Prophylaxis Meds: Heparin PUD Prophylasis PUD Prophylaxis: Protonix Assessment/Plan Assessment/Plan \ Diagnosis: (1) Acute Rhabdomyolysis likely d/t statin (2) Evppw-je-qrsibxs kidney injury (3) Knee pain/b/l lower ext pain d/t Rhabdo (4) Dehydration (5) Morbid obesity (6) ch venous insuffiency / ch Pedal edema (7) Diabetes 1.5, managed as type 2 (8) Hx of congestive heart failure (9) HTN (hypertension) (10)Hypercholesterolemia Assessment and Plan 66-year-old morbidly obese male, presented to the emergency room complaining of bilateral knee pain, has been laying in bed, not been able to eat or drink much. In the emergency room, patient was evaluated and was noted with acute on chronic renal injury, elevated CPK consistent with rhabdomyolysis. - d/c ivf . - cpk BETTER - Monitor renal function --improving. Acute on chronic renal injury, secondary to dehydration & rhabdomyolysis - better Monitor renal function -Avoid NSAIDs, nephrotoxic agents, hold diuretics, hold metformin Bilateral leg pain d/t Rhabdo , improving Pain management -c/o right ankle pain, - xray , no evid of fractue , Mild DJD Type 2 diabetes - diabetic diet . 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
[2016-12-18] MEDS: SODIUM CHLORIDE 0.9% FLUSH 5 ML FLUSH FLUSH SCH ×2 (09:00→21:00)
[2016-12-18] MEDS: HEPARIN SODIUM - SQ 10,000 UNITS/ML VIAL SQ SCH ×2 (10:53→21:04)
[2016-12-18] MEDS: ACETAMINOPHEN 325 MG TAB PO PRN (10:53)
[2016-12-18] MEDS: FUROSEMIDE 40 MG TAB PO SCH (10:54)
[2016-12-18] MEDS: METOPROLOL SUCCINATE 50 MG EXTENDED RELEASE TAB PO SCH (10:54)
[2016-12-18] MEDS: PANTOPRAZOLE SOD 40 MG DELAYED RELEASE TAB PO SCH (10:55)
[2016-12-18] MEDS: SPIRONOLACTONE 25 MG TAB PO SCH (10:58)
[2016-12-18] MEDS: SODIUM CHLOR 0.9% 1000 ML INJ 1,000 ML IV SCH (20:00)
[2016-12-19] VITALS (8 sets, daily range): BP systolic 132–189; BP diastolic 76–97; PULSE 69–85; RESP 17–19; TEMP 97.6–98.9; O2SAT 93–97
[2016-12-19] MEDS: hydrALAZINE HCL 50 MG TAB PO SCH ×3 (06:08→22:37)
[2016-12-19] MEDS: INSULIN ASPART SUPPLEMENTAL SCALE SQ SCH ×4 (06:08→21:00)
--- NOTE | 2016-12-19 10:08 | HHI.PR ---
Subjective History of Present Illness feel better leg pain is better but they are still weak no fever or chills no CP or SOB no cough or sputum no n/v good appetite no diarrhea offers no other c/o Vitals/Results Intake & Output 12/18/16 12/18/16 12/19/16 15:00 23:00 07:00 Intake Total 1440 ml Output Total 1500 ml Balance -60 ml Intake Oral 1440 ml Output Urine Total 1500 ml # Voids 1 # Bowel Movements 0 Vital Signs Vital Signs Date Time Temp Pulse Resp B/P Pulse Ox O2 Delivery O2 Flow Rate FiO2 12/19/16 07:30 97.6 76 17 166/90 95 12/19/16 04:00 98.9 85 19 155/76 97 12/18/16 22:57 98.0 78 18 130/74 98 12/18/16 20:30 98.8 78 18 147/78 97 12/18/16 20:00 74 12/18/16 15:43 97.4 68 18 149/73 95 12/18/16 12:00 98.2 70 20 155/85 94 12/18/16 11:53 20 CBC/BMP: 12/18/16 0620 12/18/16 0620 Physical Exam General General Appearance: No Acute Distress, Comfortable, Obese Eyes Eye Exam: Pupils Equal, Sclera White, Extraocular Movement Intact Ears & Nose Ears & Nose Exam: Nasal Mucosa [place] Throat Throat Exam: Oral Mucosa [place] & Moist Neck Neck Exam: Neck Supple, Trachea Midline Pulmonary Resp Exam: Clear Bilaterally, Breath Sounds Equal Cardiology CV Exam: Regular, Normal Sinus Rhythm Gastrointestinal/Abdomen GI Exam: Soft, Non-Tender, Bowel Sounds Present Integumentary Skin Exam: Warm, Dry Skin Remarks thickened discolored skin b/l south Extremeties Extremities Exam: Moderate Edema, Pitting Edema Neurologic Neuro Exam: Alert, Awake, Oriented, Speech Clear, Moving All Extremities Psychiatric Psych Exam: Appropriate Responses VTE Prophylaxis VTE Prophylaxis Meds: Heparin PUD Prophylasis PUD Prophylaxis: Protonix Assessment/Plan Assessment/Plan \ Diagnosis: (1) Acute Rhabdomyolysis likely d/t statin (2) Laqvk-xx-wbtbnkw kidney injury (3) Knee pain/b/l lower ext pain d/t Rhabdo (4) Dehydration (5) Morbid obesity (6) ch venous insuffiency / ch Pedal edema (7) Diabetes 1.5, managed as type 2 (8) Hx of congestive heart failure (9) HTN (hypertension) (10)Hypercholesterolemia Assessment and Plan 66-year-old morbidly obese male, presented to the emergency room complaining of bilateral knee pain, has been laying in bed, not been able to eat or drink much. In the emergency room, patient was evaluated and was noted with acute on chronic renal injury, elevated CPK consistent with rhabdomyolysis. - Off ivf . - cpk BETTER - Renal function --improving. Acute on chronic renal injury, secondary to dehydration & rhabdomyolysis - better Monitor renal function -Avoid NSAIDs, nephrotoxic agents, hold diuretics, hold metformin Bilateral leg pain d/t Rhabdo , improving Pain management -c/o right ankle pain, - xray , no evid of fractue , Mild DJD - Analgesic prn Type 2 diabetes - diabetic diet . 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
[2016-12-19] MEDS ORDERED: ACET325T PO (10:32)
[2016-12-19] MEDS ORDERED: HEPA10003 SQ (10:32)
[2016-12-19] MEDS: PANTOPRAZOLE SOD 40 MG DELAYED RELEASE TAB PO SCH (11:21)
[2016-12-19] MEDS: FUROSEMIDE 40 MG TAB PO SCH (11:21)
[2016-12-19] MEDS: SPIRONOLACTONE 25 MG TAB PO SCH (11:21)
[2016-12-19] MEDS: SODIUM CHLORIDE 0.9% FLUSH 5 ML FLUSH FLUSH SCH ×2 (11:22→22:37)
[2016-12-19] MEDS: METOPROLOL SUCCINATE 50 MG EXTENDED RELEASE TAB PO SCH (11:22)
[2016-12-19] MEDS: HEPARIN SODIUM - SQ 10,000 UNITS/ML VIAL SQ SCH ×2 (11:22→22:37)
[2016-12-19] MEDS: SODIUM CHLOR 0.9% 1000 ML INJ 1,000 ML IV SCH (22:38)
[2016-12-20] VITALS (8 sets, daily range): BP systolic 129–168; BP diastolic 78–87; PULSE 58–79; RESP 17–24; TEMP 97.6–98.4; O2SAT 94–96
[2016-12-20] MEDS: ACETAMINOPHEN 325 MG TAB PO PRN (01:20)
[2016-12-20] MEDS: SODIUM CHLOR 0.9% 1000 ML INJ 1,000 ML IV SCH (03:00)
[2016-12-20] MEDS: hydrALAZINE HCL 50 MG TAB PO SCH ×3 (06:46→21:30)
[2016-12-20] MEDS: INSULIN ASPART SUPPLEMENTAL SCALE SQ SCH ×4 (06:48→21:00)
[2016-12-20] MEDS: FUROSEMIDE 40 MG TAB PO SCH (08:27)
[2016-12-20] MEDS: SPIRONOLACTONE 25 MG TAB PO SCH (08:27)
[2016-12-20] MEDS: HEPARIN SODIUM - SQ 10,000 UNITS/ML VIAL SQ SCH ×2 (08:27→21:30)
[2016-12-20] MEDS: METOPROLOL SUCCINATE 50 MG EXTENDED RELEASE TAB PO SCH (08:27)
[2016-12-20] MEDS: PANTOPRAZOLE SOD 40 MG DELAYED RELEASE TAB PO SCH (08:27)
[2016-12-20] MEDS: SODIUM CHLORIDE 0.9% FLUSH 5 ML FLUSH FLUSH SCH ×2 (08:28→21:31)
--- NOTE | 2016-12-20 09:58 | HHI.PR ---
Subjective History of Present Illness I am OK leg pain is better but they are still weak no fever or chills no CP or SOB no cough or sputum no n/v good appetite c/o constipation offers no other c/o Vitals/Results Intake & Output 12/19/16 12/19/16 12/20/16 15:00 23:00 07:00 Output Total 225 ml Balance -225 ml Output Urine Total 225 ml Vital Signs Vital Signs Date Time Temp Pulse Resp B/P Pulse Ox O2 Delivery O2 Flow Rate FiO2 12/20/16 04:46 98.2 72 24 168/82 95 12/20/16 00:56 98.4 79 20 153/85 94 12/19/16 20:30 142/80 12/19/16 20:00 69 12/19/16 19:35 98.2 78 18 180/95 93 12/19/16 16:30 75 12/19/16 15:44 98.0 73 18 132/83 96 12/19/16 11:17 98.2 81 19 189/97 95 CBC/BMP: 12/18/16 0620 12/18/16 0620 Physical Exam General General Appearance: No Acute Distress, Comfortable, Obese Eyes Eye Exam: Pupils Equal, Sclera White, Extraocular Movement Intact Ears & Nose Ears & Nose Exam: Nasal Mucosa [place] Throat Throat Exam: Oral Mucosa [place] & Moist Neck Neck Exam: Neck Supple, Trachea Midline Pulmonary Resp Exam: Clear Bilaterally, Breath Sounds Equal Cardiology CV Exam: Regular, Normal Sinus Rhythm Gastrointestinal/Abdomen GI Exam: Soft, Non-Tender, Bowel Sounds Present Integumentary Skin Exam: Warm, Dry Skin Remarks thickened discolored skin b/l south Extremeties Extremities Exam: Moderate Edema, Pitting Edema Neurologic Neuro Exam: Alert, Awake, Oriented, Speech Clear, Moving All Extremities Psychiatric Psych Exam: Appropriate Responses VTE Prophylaxis VTE Prophylaxis Meds: Heparin PUD Prophylasis PUD Prophylaxis: Protonix Assessment/Plan Assessment/Plan \ Diagnosis: (1) Acute Rhabdomyolysis likely d/t statin (2) Djnsb-qm-iykshrl kidney injury (3) Knee pain/b/l lower ext pain d/t Rhabdo (4) Dehydration (5) Morbid obesity (6) ch venous insuffiency / ch Pedal edema (7) Diabetes 1.5, managed as type 2 (8) Hx of congestive heart failure (9) HTN (hypertension) (10)Hypercholesterolemia Assessment and Plan 66-year-old morbidly obese male, presented to the emergency room complaining of bilateral knee pain, has been laying in bed, not been able to eat or drink much. In the emergency room, patient was evaluated and was noted with acute on chronic renal injury, elevated CPK consistent with rhabdomyolysis. - Off ivf . - cpk BETTER - Renal function --improving. Acute on chronic renal injury, secondary to dehydration & rhabdomyolysis - better Monitor renal function -Avoid NSAIDs, nephrotoxic agents, Bilateral leg pain d/t Rhabdo , improving Pain management -c/o right ankle pain, - xray , no evid of fractue , Mild DJD - Analgesic prn Type 2 diabetes - diabetic diet . 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
[2016-12-20] MEDS ORDERED: MAGNESIUM CITRATE SOLN 300 ML BTL PO ONE (10:30)
[2016-12-20] MEDS ORDERED: MILKSUS PO (10:31)
[2016-12-20] MEDS ORDERED: COLA100C3 PO (10:31)
[2016-12-20] MEDS ORDERED: HYDR50TA15 PO (10:31)
--- NOTE | 2016-12-20 18:45 | HHI.DS ---
Discharge Summary Admission Date Dec 17, 2016 at 09:39 Discharge Date: Dec 20, 2016 Admitting Diagnosis rhabdomyolysis (1) Rhabdomyolysis Diagnosis: Principal (2) Ssalw-nh-pwfgkop kidney injury Diagnosis: Principal (3) Knee pain Diagnosis: Secondary (4) Dehydration Diagnosis: Secondary (5) Morbid obesity Diagnosis: Secondary (6) Peripheral edema Diagnosis: Secondary (7) Diabetes 1.5, managed as type 2 Diagnosis: Principal (8) Hx of congestive heart failure Diagnosis: Secondary (9) HTN (hypertension) Diagnosis: Secondary Procedures none Brief History This was a pleasant 65-year-old gentleman with past medical history which includes hypertension, diabetes mellitus, chronic back pain, morbid obesity, COPD does not wear supplemental oxygen, prostate cancer, CHF, chronic peripheral edema, renal insufficiency. Patient presented to the emergency room via EMS complaining of bilat lower extremity pain from the knees down, that started approximately 5 days ago, denies any falls, no trauma. Patient was somewhat of a poor historian, he was somnolent, information is obtained from the medical record. Patient indicates that he had been laying in bed, had very little to eat and drink. He had history of osteoarthritis. Pain was achy, he does have chronic leg edema which was unchanged. Denies any chest pain, no excessive shortness of breath, no fever, no chills, no palpitations. Patient states that his legs hurt when he walks therefore he has not been very active. His brother and sister have come to his home to check on him. He endorses loose stools, non-watery, no abdominal pain, no nausea, no vomiting. Indicates his blood sugars have been running low in the 100s. He didn't take his medications day of admission, but had been compliant the rest of the other days. CBC/BMP: 12/18/16 0620 12/18/16 0620 Significant Findings Laboratory Tests Test 12/18/16 06:20 Red Blood Count 3.28 MIL/MM3 (4.50-5.90) Hemoglobin 10.1 GM/DL (13.0-17.0) Hematocrit 31.2 % (39.0-51.0) Chloride Level 112 MEQ/L (98-107) Blood Urea Nitrogen 39 MG/DL (7-18) Estimat Glomerular Filtration 72 ML/MIN (>89) Rate Random Glucose 125 MG/DL (74-106) Calcium Level 8.3 MG/DL (8.5-10.1) Total Creatine Kinase 414 U/L (39-308) Imaging Last Impressions Ankle X-Ray 12/17/16 0000 Signed Impressions: Service Date/Time: Saturday, December 17, 2016 12:17 - CONCLUSION: Mild degenerative changes as described above. There is no evidence of acute fracture. Ji Wellington MD Lower Extremity Ultrasound 12/16/16 0000 Signed Impressions: Service Date/Time: Friday, December 16, 2016 17:07 - CONCLUSION: Negative for deep venous thrombosis.. Alex Trejo MD FACR PE at Discharge Physical Exam General General Appearance: No Acute Distress, Comfortable, Obese Eyes Eye Exam: Pupils Equal, Sclera White, Extraocular Movement Intact Ears & Nose Ears & Nose Exam: Nasal Mucosa [place] Throat Throat Exam: Oral Mucosa [place] & Moist Neck Neck Exam: Neck Supple, Trachea Midline Pulmonary Resp Exam: Clear Bilaterally, Breath Sounds Equal Cardiology CV Exam: Regular, Normal Sinus Rhythm Gastrointestinal/Abdomen GI Exam: Soft, Non-Tender, Bowel Sounds Present Integumentary Skin Exam: Warm, Dry Skin Remarks thickened discolored skin b/l south Extremeties Extremities Exam: Moderate Edema, Pitting Edema Neurologic Neuro Exam: Alert, Awake, Oriented, Speech Clear, Moving All Extremities Psychiatric Psych Exam: Appropriate Responses VTE Prophylaxis VTE Prophylaxis Meds: Heparin PUD Prophylasis PUD Prophylaxis: Protonix Hospital Course In the emergency room, patient was evaluated and was noted with acute renal injury, patient does have some renal insufficiency. He was notable leukocytosis , WBC of 13.2, hemoglobin 11.7, hematocrit 35.2. Patient was noted and rhabdomyolysis, CPK 2444. Ultrasound of the lower extremities were negative for DVT. Patient was hemodynamically stable, no fevers. Patient received 1 L of IV fluids. He received [place], indicates his pain is slightly improved. Patient is admitted for further evaluation and treatment. This treatment plan included this problem lists. (1) Acute Rhabdomyolysis likely d/t statin (2) Gjuvg-xh-dzmotsk kidney injury (3) Knee pain/b/l lower ext pain d/t Rhabdo (4) Dehydration (5) Morbid obesity (6) ch venous insuffiency / ch Pedal edema (7) Diabetes 1.5, managed as type 2 (8) Hx of congestive heart failure (9) HTN (hypertension) (10)Hypercholesterolemia Renal function --improved with medicines and monitoring of labs. NSAIDs were avoided. Bilateral leg pain was monitored and treated meds./pain managemen c/o right ankle pain during hospital stay, xray done showing no evidivence of fractue , Mild DJD Type 2 diabetes managed with- diabetic diet. His metformin on hold. Accu-Cheks before meals and at bedtime with low-dose insulin therapy as needed Monitor for fluid overload, rales noted at bases on exam. cont diuretics, lasix/aldactone , cont BB/CCB Hypertension,/ blood pressure remained stable. Hydralazine used for BP control Patient education counselor about his weight. Pt Condition on Discharge: Stable Discharge Disposition: Discharge to SNF Discharge Instructions DIET: Follow Instructions for: Heart Healthy Diet, Diabetic Diet Fluid Restrictions: 1600cc Activities you can perform: Regular-No Restrictions Other Activity Instructions: fall precautions Follow up Referrals: PCP Follow-up - 1 Week New Medications: Docusate Sodium (Colace) 100 Mg Cap 100 MG PO BID Constipation #60 Ref 0 CAP Magnesium Hydroxide Liq (Milk of Magnesia Liq) 400 Mg/5 Ml Susp 30 ML PO DAILY PRN CONSTIPATION #1 Ref 0 BOTTLE Acetaminophen (Acetaminophen) 325 Mg Tab 650 MG PO q6h PRN TEMP > 100.4 #20 TAB Heparin Sodium (Porcine) (Heparin Sodium) 10,000 Unit/Ml Inj 5000 UNITS SQ Q12HR dvt prophylaxis #20 INJECTION Hydralazine (Hydralazine) 50 Mg Tab 100 MG PO Q8HR htn #90 TAB Continued Medications: Albuterol 18 GM Inh (Ventolin Hfa 18 GM Inh) 90 Mcg/Act Aer 2 PUFF INH Q6H PRN SHORTNESS OF BREATH Ref 0 INHALER Amlodipine (Amlodipine) 10 Mg Tab 10 MG PO DAILY Blood Pressure Management TAB Furosemide (Lasix) 40 Mg Tab 40 MG PO DAILY TAB Insulin Glargine Inj (Lantus Inj) 1,000 Unit/10 Ml Vial 55 UNITS SQ HS Blood Sugar Management VIAL Lisinopril (Lisinopril) 20 Mg Tab 20 MG PO DAILY TAB Metformin (Metformin) 1,000 Mg Tab 1000 MG PO BID With meals Blood Sugar Management TAB Metoprolol Succinate ER 24 HR (Toprol XL) 100 Mg Tab 100 MG PO DAILY TAB Omeprazole (Omeprazole) 40 Mg Cap 40 MG PO DAILY CAP Spironolactone (Spironolactone) 25 Mg Tab 25 MG PO DAILY TAB Discontinued Medications: Hydralazine (Hydralazine) 50 Mg Tab 50 MG PO Q8HR Take with a meal Blood Pressure Management TAB Simvastatin (Zocor) 40 Mg Tab 40 MG PO HS Cholesterol Management TAB Additional Information Discharge orders sent to [facility] with patient. Mendy Christian Dec 20, 2016 18:45 25 MG PO DAILY TAB Discontinued Medications: Hydralazine (Hydralazine) 50 Mg Tab 50 MG PO Q8HR Take with a meal Blood Pressure Management TAB Simvastatin (Zocor) 40 Mg Tab 40 MG PO HS Cholesterol Management TAB Mendy Christian Dec 20, 2016 18:45
[2016-12-21] VITALS (8 sets, daily range): BP systolic 136–160; BP diastolic 67–90; PULSE 62–75; RESP 18–20; TEMP 97.5–98.1; O2SAT 93–95
[2016-12-21] MEDS: hydrALAZINE HCL 50 MG TAB PO SCH ×3 (05:58→21:21)
[2016-12-21] MEDS: INSULIN ASPART SUPPLEMENTAL SCALE SQ SCH ×4 (05:59→20:32)
[2016-12-21] MEDS: SPIRONOLACTONE 25 MG TAB PO SCH (08:45)
[2016-12-21] MEDS: FUROSEMIDE 40 MG TAB PO SCH (08:45)
[2016-12-21] MEDS: PANTOPRAZOLE SOD 40 MG DELAYED RELEASE TAB PO SCH (08:45)
[2016-12-21] MEDS: METOPROLOL SUCCINATE 50 MG EXTENDED RELEASE TAB PO SCH (08:46)
[2016-12-21] MEDS: SODIUM CHLORIDE 0.9% FLUSH 5 ML FLUSH FLUSH SCH ×2 (08:46→20:33)
[2016-12-21] MEDS: HEPARIN SODIUM - SQ 10,000 UNITS/ML VIAL SQ SCH ×2 (08:46→20:33)
--- NOTE | 2016-12-21 17:23 | HHI.PR ---
Subjective History of Present Illness pt was not d/c /awaiting approval for SNF by insurance feels much better legs are getting stronger & less painful no fever or chills no CP or SOB no cough or sputum no n/v good appetite offers no other c/o Vitals/Results Intake & Output 12/20/16 12/20/16 12/21/16 15:00 23:00 07:00 Intake Total 480 ml 360 ml 480 ml Output Total 800 ml 200 ml 450 ml Balance -320 ml 160 ml 30 ml Intake Oral 480 ml 360 ml 480 ml Output Urine Total 800 ml 200 ml 450 ml # Bowel Movements 1 Vital Signs Vital Signs Date Time Temp Pulse Resp B/P Pulse Ox O2 Delivery O2 Flow Rate FiO2 12/21/16 16:30 97.7 65 19 160/90 95 12/21/16 12:09 97.5 62 20 136/84 93 12/21/16 08:00 97.8 65 20 150/80 94 12/21/16 04:00 98.0 67 20 154/78 94 12/21/16 00:00 98.1 72 20 149/67 94 12/20/16 20:00 61 12/20/16 20:00 97.6 66 20 129/78 95 CBC/BMP: 12/18/16 0620 12/18/16 0620 Physical Exam General General Appearance: No Acute Distress, Comfortable, Obese Eyes Eye Exam: Pupils Equal, Sclera White, Extraocular Movement Intact Ears & Nose Ears & Nose Exam: Nasal Mucosa [place] Throat Throat Exam: Oral Mucosa [place] & Moist Neck Neck Exam: Neck Supple, Trachea Midline Pulmonary Resp Exam: Clear Bilaterally, Breath Sounds Equal Cardiology CV Exam: Regular, Normal Sinus Rhythm Gastrointestinal/Abdomen GI Exam: Soft, Non-Tender, Bowel Sounds Present Integumentary Skin Exam: Warm, Dry Skin Remarks thickened discolored skin b/l south Extremeties Extremities Exam: Moderate Edema, Pitting Edema Neurologic Neuro Exam: Alert, Awake, Oriented, Speech Clear, Moving All Extremities Psychiatric Psych Exam: Appropriate Responses VTE Prophylaxis VTE Prophylaxis Meds: Heparin PUD Prophylasis PUD Prophylaxis: Protonix Assessment/Plan Assessment/Plan \ Diagnosis: (1) Acute Rhabdomyolysis likely d/t statin (2) Pwjol-pb-boamlzq kidney injury (3) Knee pain/b/l lower ext pain d/t Rhabdo (4) Dehydration (5) Morbid obesity (6) ch venous insuffiency / ch Pedal edema (7) Diabetes 1.5, managed as type 2 (8) Hx of congestive heart failure (9) HTN (hypertension) (10)Hypercholesterolemia Assessment and Plan 66-year-old morbidly obese male, presented to the emergency room complaining of bilateral knee pain, has been laying in bed, not been able to eat or drink much. In the emergency room, patient was evaluated and was noted with acute on chronic renal injury, elevated CPK consistent with rhabdomyolysis. - Off ivf . - cpk BETTER - Renal function --improving. Acute on chronic renal injury, secondary to dehydration & rhabdomyolysis - better Monitor renal function -Avoid NSAIDs, nephrotoxic agents, Bilateral leg pain d/t Rhabdo , improving Pain management -c/o right ankle pain, - xray , no evid of fractue , Mild DJD - Analgesic prn Type 2 diabetes - diabetic diet . 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
[2016-12-22] VITALS: BP 148/79; PULSE 82; RESP 18; TEMP 97.8; O2SAT 96
[2016-12-22] MEDS: SODIUM CHLOR 0.9% 1000 ML INJ 1,000 ML IV SCH (03:00)
[2016-12-22 04:21] VITALS: BP 154/98; PULSE 75; RESP 20; TEMP 98; O2SAT 94
[2016-12-22] MEDS: hydrALAZINE HCL 50 MG TAB PO SCH ×2 (05:18→15:18)
[2016-12-22] MEDS: INSULIN ASPART SUPPLEMENTAL SCALE SQ SCH ×2 (05:22→11:00)
[2016-12-22 08:00] VITALS: BP_SYST 139; BP_SYST 146; BP_DIAS 70; BP_DIAS 89; PULSE 56; PULSE 73; PULSE 77; RESP 18; RESP 20; TEMP 97.5; TEMP 98; O2SAT 93; O2SAT 97
[2016-12-22 08:48] LABS: BICARBONATE 29.1 MEQ/L (21.0-32.0); POTASSIUM 4.9 MEQ/L (3.5-5.1)
[2016-12-22] MEDS: SODIUM CHLORIDE 0.9% FLUSH 5 ML FLUSH FLUSH SCH (09:00)
[2016-12-22] MEDS: HEPARIN SODIUM - SQ 10,000 UNITS/ML VIAL SQ SCH (09:00)
[2016-12-22] MEDS: METOPROLOL SUCCINATE 50 MG EXTENDED RELEASE TAB PO SCH (09:27)
[2016-12-22] MEDS: SPIRONOLACTONE 25 MG TAB PO SCH (09:27)
[2016-12-22] MEDS: PANTOPRAZOLE SOD 40 MG DELAYED RELEASE TAB PO SCH (09:27)
[2016-12-22] MEDS: FUROSEMIDE 40 MG TAB PO SCH (09:27)
[2016-12-22] MEDS: ACETAMINOPHEN 325 MG TAB PO PRN ×2 (09:30→10:30)
--- NOTE | 2016-12-22 10:10 | HHI.PR ---
Subjective History of Present Illness when can I get out of here ? I am ok legs are getting stronger & less painful able to stand & walk short distance now no fever or chills no CP or SOB no cough or sputum no n/v good appetite offers no other c/o Vitals/Results Intake & Output 12/21/16 12/21/16 12/22/16 15:00 23:00 07:00 Intake Total 360 ml 240 ml Output Total 400 ml 600 ml Balance -40 ml -360 ml Intake Oral 360 ml 240 ml Output Urine Total 400 ml 600 ml # Bowel Movements 1 0 Vital Signs Vital Signs Date Time Temp Pulse Resp B/P Pulse Ox O2 Delivery O2 Flow Rate FiO2 12/22/16 08:00 97.5 73 20 146/89 93 12/22/16 08:00 98.0 77 18 139/70 97 12/22/16 04:21 98.0 75 20 154/98 94 12/22/16 00:00 97.8 82 18 148/79 96 12/21/16 21:21 74 12/21/16 20:00 98.0 74 18 142/77 95 12/21/16 16:30 97.7 65 19 160/90 95 12/21/16 12:09 97.5 62 20 136/84 93 CBC/BMP: 12/18/16 0620 12/22/16 0710 Lab Results Laboratory Tests Test 12/22/16 07:10 Sodium Level 140 MEQ/L Potassium Level 4.9 MEQ/L Chloride Level 105 MEQ/L Carbon Dioxide Level 29.1 MEQ/L Anion Gap 6 MEQ/L Blood Urea Nitrogen 25 MG/DL Creatinine 1.11 MG/DL Estimat Glomerular Filtration 81 ML/MIN Rate Random Glucose 116 MG/DL Calcium Level 8.8 MG/DL Physical Exam General General Appearance: No Acute Distress, Comfortable, Obese Eyes Eye Exam: Pupils Equal, Sclera White, Extraocular Movement Intact Ears & Nose Ears & Nose Exam: Nasal Mucosa Outlook Throat Throat Exam: Oral Mucosa Outlook & Moist Neck Neck Exam: Neck Supple, Trachea Midline Pulmonary Resp Exam: Clear Bilaterally, Breath Sounds Equal Cardiology CV Exam: Regular, Normal Sinus Rhythm Gastrointestinal/Abdomen GI Exam: Soft, Non-Tender, Bowel Sounds Present Integumentary Skin Exam: Warm, Dry Skin Remarks thickened discolored skin b/l south Extremeties Extremities Exam: Moderate Edema, Pitting Edema Neurologic Neuro Exam: Alert, Awake, Oriented, Speech Clear, Moving All Extremities Psychiatric Psych Exam: Appropriate Responses VTE Prophylaxis VTE Prophylaxis Meds: Heparin PUD Prophylasis PUD Prophylaxis: Protonix Assessment/Plan Assessment/Plan \ Diagnosis: (1) s/p Acute Rhabdomyolysis d/t statin (2) Eoemf-wy-qlxfpeg renal failure , improved acute comp d/t Rhabdo/ pre renal azotemia , (3) Knee pain/b/l lower ext pain d/t Rhabdo (4) Dehydration (5) Morbid obesity (6) ch venous insuffiency / ch Pedal edema (7) Diabetes 1.5, managed as type 2 (8) Hx of congestive heart failure (9) HTN (hypertension) (10)Hypercholesterolemia Assessment and Plan 66-year-old morbidly obese male, presented to the emergency room complaining of bilateral knee pain, has been laying in bed, not been able to eat or drink much. In the emergency room, patient was evaluated and was noted with acute on chronic renal injury, elevated CPK consistent with rhabdomyolysis. - cpk BETTER - Renal function --improving. Acute on chronic renal injury, secondary to dehydration & rhabdomyolysis - better Monitor renal function -Avoid NSAIDs, nephrotoxic agents, Bilateral leg pain d/t Rhabdo , improving Pain management -c/o right ankle pain, - xray , no evid of fractue , Mild DJD - Analgesic prn Type 2 diabetes - diabetic diet . 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
[2016-12-22 12:00] VITALS: BP 153/87; PULSE 67; RESP 20; TEMP 97.4; O2SAT 93
== END 2016-12-22 16:10 | DRG 558 ==
LOC: NEDAMB 13:02 → NEDA 18:19 → NEPGCP 20:16 → OBSVTOIN 12-17 09:39 → N04A 12-20 04:46
PROVIDERS: ADMIT Specialist; ATTEND Specialist
DX: M62.82 Rhabdomyolysis (principal); N17.9 Acute kidney failure, unspecified; E11.22 Type 2 diabetes mellitus with diabetic chronic kidney disease; I13.0 Hypertensive heart and chronic kidney disease with heart failure and stage 1 through stage 4 chronic kidney disease, or unspecified chronic kidney disease; I50.32 Chronic diastolic (congestive) heart failure; Z68.42 Body mass index [BMI] 45.0-49.9, adult; J44.9 Chronic obstructive pulmonary disease, unspecified; E66.01 Morbid (severe) obesity due to excess calories; E86.0 Dehydration; N18.9 Chronic kidney disease, unspecified; G89.29 Other chronic pain; M54.9 Dorsalgia, unspecified; M19.90 Unspecified osteoarthritis, unspecified site; M25.561 Pain in right knee; M25.562 Pain in left knee; R60.0 Localized edema; R19.7 Diarrhea, unspecified; E78.00 Pure hypercholesterolemia, unspecified; K59.00 Constipation, unspecified; L60.2 Onychogryphosis; Z92.3 Personal history of irradiation; Z79.84 Long term (current) use of oral hypoglycemic drugs; Z79.4 Long term (current) use of insulin; F17.210 Nicotine dependence, cigarettes, uncomplicated; Z85.46 Personal history of malignant neoplasm of prostate
CPT/HCPCS: 73610; 80048; 82550; 82552; 82948; 85025; 85027; 85379; 85610; 85730; 93970; G0378; G8987-GP; G8988-GP; J1644; J7030

== ENCOUNTER 2017-03-18 14:43 | Inpatient (IN) | payer OTHER, MEDICARE ==
[~2017-03-18] VITALS: Ht 185.4 cm; Wt 177.9 kg
[~2017-03-18 14:43] MED LIST changes: +ACET325T PO; +COLA100C3 PO; -COLC1CAP3 PO; +HEPA10003 SQ; +MILKSUS PO; -PRED20 PO; -ZOCO40TA PO
[2017-03-18 14:45] VITALS: BP 173/81; PULSE 71; RESP 20; TEMP 98.6; O2SAT 95
--- NOTE | 2017-03-18 14:59 | PD ---
Physical Exam Date Seen by Provider: Mar 18, 2017 Narrative Pt presents with c/o chest pain, SOB since yesterday. SOB and pain are exacerbated with movement. He reports the pain is a 6/10. VSS, protocol initiated. Data Data Last Documented VS Vital Signs Date Time Temp Pulse Resp B/P Pulse Ox O2 Delivery O2 Flow Rate FiO2 03/18/17 14:45 98.6 71 20 173/81 95 Room Air [facility] Supervised Visit with BIRDIE: Yumiko Escalera Mar 18, 2017 14:59
[2017-03-18] MEDS ORDERED: SODIUM CHLORIDE 0.9% FLUSH 10 ML FLUSH IVF PRN (15:00)
--- NOTE | 2017-03-18 15:43 | RADRPT ---
EXAM DATE/TIME: 03/18/2017 15:07 [place] COMPARISON: CHEST SINGLE AP, July 22, 2016, 22:28. INDICATIONS : Chest pain, short of breath. MEDICAL HISTORY : Chronic obstructive pulmonary disease. Congestive heart failure. SURGICAL HISTORY : None. ENCOUNTER: Initial ACUITY: 2 days PAIN SCORE: 9/10 LOCATION: Bilateral chest FINDINGS: The heart is enlarged, similar to prior in June 2016. There is prominence and engorgement of the c entral bronchopulmonary markings and there is equalization of pulmonary flow between upper and lower lungs. The azygos vein is prominent. No focal areas of consolidation. The hemidiaphragms are well delineated. CONCLUSION: Findings suggest pulmonary venous hypertension with equalization of pulmonary flow. No focal areas o f alveolar consolidation. Federico Ocampo MD on March 18, 2017 at 15:40 Board Certified Radiologist. This report was verified electronically.
--- NOTE | 2017-03-18 16:19 | PD ---
HPI Chief Complaint: Chest Pain Time Seen by Provider: 16:15 Travel History International Travel<30 days: No Contact w/Intl Traveler<30days: No Traveled to known affect area: No History of Present Illness HPI 66-year-old male that presents to the ED for evaluation of chest pain and shortness of breath. Per patient she's had this for about 3 days. Per patient and getting worse. Patient does complain of feeling shortness of breath with exertion as well as with laying down. He does have a history of CHF in the past. He takes medications for this. Has a history of cholesterol as well as hypertension and diabetes. Per patient he is chronically having swelling on the lower legs. Patient is also morbidly obese. Per patient his not seen anybody for this. Per patient the symptoms have progressively gotten worse over the past 3 days. He states that her chest pain feels like a pressure. Comes and goes. Is not constant. He does not know the name of his almond sorter. He has a history of MRSA in the past. History of smoking as well. States that the pain stays mainly on the left side of the chest and does not radiate. PFSH Past Medical History Arthritis: Yes Blood Disorders: No Cancer: Yes (PROSTATE 5 YEARS AGO ) Cardiovascular Problems: Yes (htn) Chest Pain: Yes Congestive Heart Failure: Yes COPD: Yes Diabetes: Yes (ORDERED INSULIN, NOT TAKING, MANAGING AT HOME. ) Diminished Hearing: No Endocrine: Yes Gastrointestinal Disorders: Yes (MORBID OBESITY) Gout: Yes Genitourinary: Yes Hypertension: Yes Immune Disorder: No Implanted Vascular Access Dvce: No Musculoskeletal: Yes Neurologic: No Psychiatric: No Reproductive: No Respiratory: Yes (SMOKER, COPD) Radiation Therapy: Yes Sleep Apnea: Yes Past Surgical History Other Surgery: Yes (RT HAND) Social History Alcohol Use: No Tobacco Use: Yes (1 PPD) Substance Use: No Allergies-Medications (Allergen,Severity, Reaction): Coded Allergies: *MDRO Multi-Drug Resistant Organism (Verified Adverse Reaction, Unknown, ) MRSA (wounds) - 03/20/13 MRSA PCR Screen NEGATIVE - 03/19/16, 03/21/2016 CLEARED PER INFECTION CONTROL Reported Meds & Prescriptions Reported Meds & Active Scripts Active Milk of Magnesia Liq (Magnesium Hydroxide) 400 Mg/5 Ml Susp 30 Ml PO DAILY PRN Colace (Docusate Sodium) 100 Mg Cap 100 Mg PO BID Hydralazine (Hydralazine HCl) 50 Mg Tab 100 Mg PO Q8HR Acetaminophen 325 Mg Tab 650 Mg PO Q6H PRN Heparin Sodium (Heparin Sodium (Porcine)) 10,000 Unit/Ml Inj 5,000 Units SQ Q12HR Reported Amlodipine (Amlodipine Besylate) 10 Mg Tab 10 Mg PO DAILY Ventolin Hfa 18 GM Inh (Albuterol Sulfate) 90 Mcg/Act Aer 2 Puff INH Q6H PRN Lantus Inj (Insulin Glargine) 1,000 Unit/10 Ml Vial 55 Units SQ HS Toprol XL (Metoprolol Succinate) 100 Mg Tab 100 Mg PO DAILY Lisinopril 20 Mg Tab 20 Mg PO DAILY Omeprazole 40 Mg Cap 40 Mg PO DAILY Metformin (Metformin HCl) 1,000 Mg Tab 1,000 Mg PO BID With meals Lasix (Furosemide) 40 Mg Tab 40 Mg PO DAILY Spironolactone 25 Mg Tab 25 Mg PO DAILY Review of Systems Except as stated in HPI: all other systems reviewed are Neg Physical Exam Narrative GENERAL: SKIN: Warm and dry. HEAD: Atraumatic. Normocephalic. EYES: Pupils equal and round. No scleral icterus. No injection or drainage. ENT: No nasal bleeding or discharge. Mucous membranes pink and moist. Tongue is midline. No uvula deviation. NECK: Trachea midline. No JVD. CARDIOVASCULAR: Regular rate and rhythm. No murmurs, S3, S4. Chest pain is not reproducible with touch. RESPIRATORY: No accessory muscle use. Clear to auscultation. Breath sounds equal bilaterally. GASTROINTESTINAL: Abdomen soft, non-tender, nondistended. Hepatic and splenic margins not palpable. MUSCULOSKELETAL: Extremities without clubbing, cyanosis, or edema. No obvious deformities. Full range of motion of the upper and lower extremities bilaterally. 2+ pulses bilaterally. Patient does have 2+ pitting edema on the lower extremities which appears to be chronic. NEUROLOGICAL: Awake and alert. No obvious cranial nerve deficits. Motor grossly within normal limits. Five out of 5 muscle strength in the arms and legs. Normal speech. PSYCHIATRIC: Appropriate mood and affect; insight and judgment normal. Data Data Last Documented VS Vital Signs Date Time Temp Pulse Resp B/P Pulse Ox O2 Delivery O2 Flow Rate FiO2 03/18/17 17:19 65 22 164/85 95 Room Air 03/18/17 14:45 98.6 Orders Electrocardiogram (03/18/17 14:57) Basic Metabolic Panel (Bmp) (03/18/17 14:57) Ckmb (Isoenzyme) Profile (03/18/17 14:57) Complete Blood Count With Diff (03/18/17 14:57) Magnesium (Mg) (03/18/17 14:57) Prothrombin Time / Inr (Pt) (03/18/17 14:57) Act Partial Throm Time (Ptt) (03/18/17 14:57) Troponin I (03/18/17 14:57) Sodium Chloride 0.9% Flush (Ns Flush) (03/18/17 15:00) Chest, Pa & Lat (03/18/17 14:57) B-Type Natriuretic Peptide (03/18/17 15:46) CKMB (03/18/17 16:00) CKMB% (03/18/17 16:00) Furosemide Inj (Lasix Inj) (03/18/17 17:00) Admit Order (Ed Use Only) (03/18/17 17:19) Labs Laboratory Tests Test 03/18/17 16:00 White Blood Count 9.3 TH/MM3 Red Blood Count 3.20 MIL/MM3 Hemoglobin 10.1 GM/DL Hematocrit 30.8 % Mean Corpuscular Volume 96.2 FL Mean Corpuscular Hemoglobin 31.6 PG Mean Corpuscular Hemoglobin 32.8 % Concent Red Cell Distribution Width 17.0 % Platelet Count 151 TH/MM3 Mean Platelet Volume 10.0 FL Neutrophils (%) (Auto) 59.6 % Lymphocytes (%) (Auto) 28.3 % Monocytes (%) (Auto) 9.3 % Eosinophils (%) (Auto) 2.0 % Basophils (%) (Auto) 0.8 % Neutrophils # (Auto) 5.5 TH/MM3 Lymphocytes # (Auto) 2.6 TH/MM3 Monocytes # (Auto) 0.9 TH/MM3 Eosinophils # (Auto) 0.2 TH/MM3 Basophils # (Auto) 0.1 TH/MM3 CBC Comment DIFF FINAL Differential Comment Prothrombin Time 10.0 SEC Prothromb Time International 0.9 RATIO Ratio Activated Partial 27.9 SEC Thromboplast Time Sodium Level 144 MEQ/L Potassium Level 4.9 MEQ/L Chloride Level 113 MEQ/L Carbon Dioxide Level 24.4 MEQ/L Anion Gap 7 MEQ/L Blood Urea Nitrogen 30 MG/DL Creatinine 1.35 MG/DL Estimat Glomerular Filtration 64 ML/MIN Rate Random Glucose 99 MG/DL Calcium Level 8.4 MG/DL Magnesium Level 2.2 MG/DL Total Creatine Kinase 117 U/L Creatine Kinase MB 2.6 NG/ML Troponin I LESS THAN 0.02 NG/ML B-Type Natriuretic Peptide 267 PG/ML MDM Medical Decision Making Medical Screen Exam Complete: Yes Emergency Medical Condition: Yes Medical Record Reviewed: Yes Interpretation(s) CBC & BMP Diagram 03/18/17 16:00 BNP in the 200s troponin negative EKG shows sinus rhythm with no sign of acute ischemia or arrhythmia read by me and attending. Differential Diagnosis CHF exacerbation versus chest pain versus cardiac chest pain versus diabetes versus ACS versus fluid overload Narrative Course 66-year-old male that presents to the ED for evaluation of CHF exacerbation. Patient was properly examined and was found to have signs and symptoms consistent appears to be CHF exacerbation with chest pain. Patient does have significant comorbidities. At this time I recommend labs and imaging. Patient is agreement with this. Labs and imaging showed what appears to be acute CHF exacerbation. This time I recommend admission. Patient is in agreement with this. Patient was given IV Lasix. Case was discussed with Dr. Millan who agrees admission to the [facility] service. Diagnosis Primary Impression: CHF (congestive heart failure) Qualified Code: I50.9 - Acute congestive heart failure, unspecified congestive heart failure type Admitting Information Admitting Physician Requests: Jayson Lainez Mar 18, 2017 16:19
[2017-03-18 16:28] LABS: AUTOMATED NEUTROPHIL # 5.5 TH/MM3 (1.8-7.7); BASOPHIL # 0.1 TH/MM3 (0-0.2); BASOPHIL % 0.8 % (0.0-2.0); EOSINOPHIL # 0.2 TH/MM3 (0-0.4); HEMATOCRIT 30.8 % (39.0-51.0); HEMO FLAGS DIFF FINAL; LYMPH % 28.3 % (9.0-44.0); LYMPHOCYTE # 2.6 TH/MM3 (1.0-4.8); MEAN CELL VOLUME 96.2 FL (80.0-100.0); MEAN CORPUSCULAR HEMOGLOBIN 31.6 PG (27.0-34.0); MEAN CORPUSCULAR HGB CONC 32.8 % (32.0-36.0); MONO % 9.3 % (0.0-8.0); NEUT % 59.6 % (16.0-70.0); PLATELET COUNT 151 TH/MM3 (150-450); WHITE BLOOD COUNT 9.3 TH/MM3 (4.0-11.0)
[2017-03-18 16:44] LABS: ANION GAP 7 MEQ/L (5-15); BICARBONATE 24.4 MEQ/L (21.0-32.0); BLOOD UREA NITROGEN 30 MG/DL (7-18); CHLORIDE 113 MEQ/L (98-107); GLOMERULAR FILTRATION RATE 64 ML/MIN (>89); MAGNESIUM 2.2 MG/DL (1.5-2.5); POTASSIUM 4.9 MEQ/L (3.5-5.1); SODIUM (NA) 144 MEQ/L (136-145)
[2017-03-18 16:47] LABS: CREATINE KINASE 117 U/L (39-308)
[2017-03-18 16:54] LABS: APTT (PATIENT) 27.9 SEC (24.3-30.1); INTERNATIONAL NORMALIZED RATIO 0.9 RATIO
[2017-03-18] MEDS ORDERED: FUROSEMIDE 40 MG/4 ML VIAL IV PUSH ONE (17:00)
[2017-03-18 17:01] LABS: CKMB 2.6 NG/ML (0.5-3.6)
[2017-03-18 17:19] VITALS: BP 164/85; PULSE 65; RESP 22; O2SAT 95
[2017-03-18] MEDS ORDERED: ONDANSETRON HCL 4 MG/2 ML VIAL IVP PRN (17:30)
[2017-03-18] MEDS ORDERED: ACETAMINOPHEN 325 MG TAB PO PRN (17:30)
[2017-03-18] MEDS ORDERED: SODIUM CHLORIDE 0.9% FLUSH 10 ML FLUSH IV FLUSH PRN (17:30)
[2017-03-18] MEDS ORDERED: NALOXONE HCL 0.4 MG/ML AMP IV PRN (17:30)
[2017-03-18] MEDS ORDERED: BISACODYL 10 MG SUPP RECTAL PRN (17:30)
--- NOTE | 2017-03-18 18:15 | HHI.HP ---
HPI Service [facility] Hospitalists Primary Care Physician Dany Chopra, Admission Diagnosis CHF exacerbation Diagnoses: Chief Complaint: Chest pain STEVEN Bilateral lower extremity swelling Travel History International Travel<30 Days: No Contact w/Intl Traveler <30 Da: No Traveled to Known Affected Are: No History of Present Illness This is a 66-year-old morbidly obese male with a past medical history significant for hypertension, insulin-dependent diabetes mellitus, COPD with ongoing tobacco use and GERD who presents to [facility] ED with complaints of chest pain and dyspnea on exertion for the past 3 days. Patient reports nonradicular chest pain is intermittent occurring 2-3 times a day worse with movement. He denies any alleviating factors. He denies any associated palpitations, dizziness, nausea/vomiting, diaphoresis, presyncope/syncope or abdominal pain. He does state for the past week he's had sore throat and runny nose and a cough. He denies any fever or chills. He has had a decreased appetite. Patient denies any previous history of congestive heart failure and states he's never had an echocardiogram. He denies any orthopnea or PND. He does report chronic bilateral lower extremity swelling. He also denies any known history of sleep apnea. He does report a history of MRSA about 2-3 years ago on the right hand which required I&D procedure. He reports weight gain of 30 pounds in the past 30 days. He states his been urinating without any difficulty. His last bowel movement was yesterday. He denies any bladder irritative symptoms or hematochezia or melena. In the ED, chest x-ray was obtained which revealed findings suggestive of pulmonary venous hypertension with equalization of pulmonary flow. His BNP was 267. He is noted to have elevated creatinine of 1.35. Initial troponin is less than 0.02. EKG showed sinus rhythm with no evidence of acute ischemia or arrhythmia. Review of Systems Except as stated in HPI: all other systems reviewed are Neg (10 point review of systems completed and all pertinents negative except as stated in HPI) Past Family Social History Past Medical History Hypertension Diabetes mellitus COPD Bilateral lower extremity edema History of MRSA right hand 2-3 years ago Past Surgical History Status post I&D of the right hand for MRSA 2-3 years ago Reported Medications Milk of Magnesia Liq (Magnesium Hydroxide) 400 Mg/5 Ml Susp 30 Ml PO DAILY PRN Colace (Docusate Sodium) 100 Mg Cap 100 Mg PO BID Hydralazine (Hydralazine HCl) 50 Mg Tab 100 Mg PO Q8HR Acetaminophen 325 Mg Tab 650 Mg PO Q6H PRN Heparin Sodium (Heparin Sodium (Porcine)) 10,000 Unit/Ml Inj 5,000 Units SQ Q12HR Amlodipine (Amlodipine Besylate) 10 Mg Tab 10 Mg PO DAILY Ventolin Hfa 18 GM Inh (Albuterol Sulfate) 90 Mcg/Act Aer 2 Puff INH Q6H PRN Lantus Inj (Insulin Glargine) 1,000 Unit/10 Ml Vial 55 Units SQ HS Toprol XL (Metoprolol Succinate) 100 Mg Tab 100 Mg PO DAILY Lisinopril 20 Mg Tab 20 Mg PO DAILY Omeprazole 40 Mg Cap 40 Mg PO DAILY Metformin (Metformin HCl) 1,000 Mg Tab 1,000 Mg PO BID With meals Lasix (Furosemide) 40 Mg Tab 40 Mg PO DAILY Spironolactone 25 Mg Tab 25 Mg PO DAILY Allergies: Coded Allergies: *MDRO Multi-Drug Resistant Organism (Verified Adverse Reaction, Unknown, ) MRSA (wounds) - 03/20/13 MRSA PCR Screen NEGATIVE - 03/19/16, 03/21/2016 CLEARED PER INFECTION CONTROL Active Ordered Medications Current Medications Medications (Trade) Dose Ordered Sig/Marleny Route Start Time Stop Time Status Last Admin (Norvasc) 10 mg DAILY PO 03/19/17 09:00 (Lasix) 40 mg DAILY PO 03/19/17 09:00 (Apresoline) 100 mg Q8HR PO 03/18/17 22:00 (Prinivil) 20 mg DAILY PO 03/19/17 09:00 (Toprol Xl) 100 mg DAILY PO 03/19/17 09:00 (Aldactone) 25 mg DAILY PO 03/19/17 09:00 (Protonix) 40 mg DAILY@06 PO 03/19/17 06:00 (NS Flush) 2 ml UNSCH PRN IV FLUSH 03/18/17 17:30 (NS Flush) 2 ml BID IV FLUSH 03/18/17 21:00 (Tylenol) 650 mg Q4H PRN PO 03/18/17 17:30 (Zofran Inj) 4 mg Q6H PRN IVP 03/18/17 17:30 (Dulcolax Supp) 10 mg DAILY PRN RECTAL 03/18/17 17:30 (Colace) 100 mg Q12H PO 03/18/17 21:00 (Heparin Inj) 5,000 units Q12H SQ 03/18/17 18:00 (Narcan Inj) 0.4 mg UNSCH PRN IV 03/18/17 17:30 (Mucinex Er) 600 mg BID PO 03/18/17 21:00 Family History Mother, lung cancer Aunt and sister, diabetes Patient does not know his father Social History Patient has a history of tobacco use of a pack per day for the past 30-40 years. He reports very rare alcohol consumption. He denies any illicit drug use. Patient is single, lives alone and is fully functional with all his ADLs. Physical Exam Vital Signs Vital Signs Date Time Temp Pulse Resp B/P Pulse Ox O2 Delivery O2 Flow Rate FiO2 03/18/17 17:19 65 22 164/85 95 Room Air 03/18/17 16:06 95 03/18/17 14:45 98.6 71 20 173/81 95 Room Air Physical Exam GENERAL: This is a well-nourished, well-developed patient, in no apparent distress. Morbidly obese. A&O 3. Pleasant and cooperative. SKIN: Warm and dry. Elephantitis changes of bilateral lower extremities with thick roughened skin. HEAD: Atraumatic. Normocephalic. No temporal or scalp tenderness. EYES: Pupils equal round and reactive. Extraocular motions intact. No scleral icterus. No injection or drainage. ENT: Nose without bleeding, purulent drainage or septal hematoma. Throat without erythema, tonsillar hypertrophy or exudate. Uvula midline. Airway patent. NECK: Trachea midline. No lymphadenopathy. Supple, nontender, no meningeal signs. CARDIOVASCULAR: Regular rate and rhythm without murmurs, gallops, or rubs. Chest pain not reproducible on exam. RESPIRATORY: Clear to auscultation. Diminished breath bilaterally due to patient's body habitus. No wheezes, rales, or rhonchi. GASTROINTESTINAL: Abdomen soft, non-tender, nondistended. No hepato-splenomegaly , or palpable masses. No guarding. MUSCULOSKELETAL: Extremities without clubbing or cyanosis. 2+ edema BLEs. No joint tenderness, effusion, or edema noted. No calf tenderness. NEUROLOGICAL: Awake and alert. Patient able to move all 4 extremities. No neurologic findings appreciated. Normal speech. Laboratory Laboratory Tests Test 03/18/17 16:00 White Blood Count 9.3 Red Blood Count 3.20 Hemoglobin 10.1 Hematocrit 30.8 Mean Corpuscular Volume 96.2 Mean Corpuscular Hemoglobin 31.6 Mean Corpuscular Hemoglobin 32.8 Concent Red Cell Distribution Width 17.0 Platelet Count 151 Mean Platelet Volume 10.0 Neutrophils (%) (Auto) 59.6 Lymphocytes (%) (Auto) 28.3 Monocytes (%) (Auto) 9.3 Eosinophils (%) (Auto) 2.0 Basophils (%) (Auto) 0.8 Neutrophils # (Auto) 5.5 Lymphocytes # (Auto) 2.6 Monocytes # (Auto) 0.9 Eosinophils # (Auto) 0.2 Basophils # (Auto) 0.1 CBC Comment DIFF FINAL Differential Comment Prothrombin Time 10.0 Prothromb Time International 0.9 Ratio Activated Partial 27.9 Thromboplast Time Sodium Level 144 Potassium Level 4.9 Chloride Level 113 Carbon Dioxide Level 24.4 Anion Gap 7 Blood Urea Nitrogen 30 Creatinine 1.35 Estimat Glomerular Filtration 64 Rate Random Glucose 99 Calcium Level 8.4 Magnesium Level 2.2 Total Creatine Kinase 117 Creatine Kinase MB 2.6 Troponin I LESS THAN 0.02 B-Type Natriuretic Peptide 267 Result Diagram: 03/18/17 1600 03/18/17 1600 Imaging Last Impressions Chest X-Ray 03/18/17 9397 Signed Impressions: Service Date/Time: Saturday, March 18, 2017 15:07 - CONCLUSION: Findings suggest pulmonary venous hypertension with equalization of pulmonary flow. No focal areas of alveolar consolidation. Federico Ocampo MD Assessment and Plan Assessment and Plan 66-year-old morbidly obese male with a past medical history significant for hypertension, insulin-dependent diabetes mellitus, COPD with ongoing tobacco use and GERD who presents to [facility] ED with complaints of chest pain and dyspnea on exertion for the past 3 days. Respiratory Insufficiency Multifactorial secondary Obesity Hypoventilation syndrome, COPD, doubt at this time anything has to be with CHF continue his home diuretics and follow in am with laboratory. Pulmonary Hypertension, possible INES he is not been diagnosed yet and will need Polysomnography as outpatient Chest pain - monitor with cardiac telemetry - EKG personally reviewed shows normal sinus rhythm with no evidence of acute ischemia - Cycle cardiac enzymes - obtain TSH level HTN - BP 164/85 - Resume home antihypertensive medication - Continue to monitor BP - Adjust treatment as indicated - Chest x-ray shows findings suggestive of pulmonary venous hypertension CHRISTAL - Creatinine 1.35. Not sure of patient's baseline. - Possibly due to decreased by mouth intake per patient report - Avoid nephrotoxic agents - Encourage by mouth intake - Repeat labs in a.m. to monitor trend, Hold spironolactone and see his behavior in am. IDDM - obtain A1c. Last A1c in the system 08/27/09 was 14.5 - accuchecks - ISS - Hold home metformin in the event of further cardiac testing - Diabetic heart healthy diet COPD with ongoing tobacco use and suspected exacerbation secondary to upper respiratory infection - Due to patient's body habitus suspect component of obstructive sleep apnea - Patient counseled on smoking cessation - Felipe scheduled - Supplemental oxygen - Nicotine patch - Patient may require home oxygen walk test prior to discharge Anemia, chronic, stable - H/H 10.1/30.8 - iron studies ordered - am labs to monitor trend Significant bilateral lower extremity edema, chronic - Resume home Lasix and Spironolactone - monitor electrolytes - monitor I&Os - monitor for improvement Weight gain - monitor daily weights and I&Os GERD - Protonix 40mg daily DVT prophylaxis - Heparin subcutaneous Discussed with patient and Dr. Millan Patient seen in his bedroom face to face, examined and plan of care indicated by me. Code Status Full code. 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 Physician Certification 2 Midnight Certification Type: Admission for Inpatient Services Order for Inpatient Services The services are ordered in accordance with Medicare regulations or non- Medicare payer requirements, as applicable. In the case of services not specified as inpatient-only, they are appropriately provided as inpatient services in accordance with the 2-midnight benchmark. Estimated LOS (days): 3 days is the estimated time the patient will need to remain in the hospital, assuming treatment plan goals are met and no additional complications. Post-Hospital Plan: Home Lata Grijalva Mar 18, 2017 18:15 Valentin Chanel MD Mar 18, 2017 18:47
[2017-03-18] MEDS: HEPARIN SODIUM - SQ 10,000 UNITS/ML VIAL SQ SCH (20:45)
[2017-03-18] MEDS: REMOVE OLD PATCH T-DERMAL SCH (20:46)
[2017-03-18 20:48] VITALS: O2SAT 93
[2017-03-18] MEDS: RESP: ALBUTEROL 2.5 MG/IPRATROPIUM 0.5 MG NEB (SCH) NEB (20:48)
[2017-03-18] MEDS: INSULIN NovoLIN REGULAR SUPPLEMENTAL SCALE SQ SCH (21:00)
[2017-03-18] MEDS ORDERED: ACETAMINOPHEN/HYDROcodone 325 MG/5 MG TAB PO ONE (23:30)
[2017-03-18 23:38] VITALS: BP 182/110; PULSE 65; RESP 20; O2SAT 97
[2017-03-18] MEDS: SODIUM CHLORIDE 0.9% FLUSH 10 ML FLUSH IV FLUSH SCH (23:39)
[2017-03-18] MEDS: DOCUSATE SODIUM 100 MG CAP PO SCH (23:39)
[2017-03-18] MEDS: guaiFENesin E.R. 600 MG TAB PO SCH (23:40)
[2017-03-18] MEDS: hydrALAZINE HCL 50 MG TAB PO SCH (23:40)
[2017-03-19] VITALS (12 sets, daily range): BP systolic 140–182; BP diastolic 79–91; PULSE 66–87; RESP 18–20; TEMP 97–97.6; O2SAT 90–98
[2017-03-19 00:03] LABS: CREATINE KINASE 132 U/L (39-308)
[2017-03-19] MEDS: RESP: ALBUTEROL 2.5 MG/IPRATROPIUM 0.5 MG NEB (SCH) NEB ×7 (00:18→23:06)
[2017-03-19 01:25] LABS: BACTERIA, URINE RARE /hpf; BLOOD, URINE NEG (NEG); COMMENT (UR) CULTURE INDICATED; CULTURE IF INDICATED CULTURE INDICATED; GLUCOSE,URINE NEG (NEG); KETONE, URINE NEG (NEG); NITRITE,URINE NEG (NEG); PH, URINE 5.5 (5.0-8.5); SQUAMOUS EPITHELIAL CELL URINE <1 /hpf (0-5); URINE COLOR YELLOW (YELLW/STRAW)
[2017-03-19 04:26] LABS: BASOPHIL # 0.1 TH/MM3 (0-0.2); BASOPHIL % 1.1 % (0.0-2.0); EOSINOPHIL # 0.2 TH/MM3 (0-0.4); EOSINOPHIL % 1.8 % (0.0-4.0); HEMATOCRIT 31.2 % (39.0-51.0); HEMO FLAGS DIFF FINAL; LYMPH % 26.5 % (9.0-44.0); LYMPHOCYTE # 2.9 TH/MM3 (1.0-4.8); MEAN CELL VOLUME 95.3 FL (80.0-100.0); MEAN CORPUSCULAR HEMOGLOBIN 32.3 PG (27.0-34.0); MEAN CORPUSCULAR HGB CONC 33.9 % (32.0-36.0); MONO % 7.1 % (0.0-8.0); NEUT % 63.5 % (16.0-70.0); PLATELET COUNT 161 TH/MM3 (150-450); RED BLOOD COUNT 3.27 MIL/MM3 (4.50-5.90); RED CELL DISTRIBUTION WIDTH 16.1 % (11.6-17.2)
[2017-03-19 04:41] LABS: ANION GAP 3 MEQ/L (5-15); BICARBONATE 27.9 MEQ/L (21.0-32.0); BLOOD UREA NITROGEN 33 MG/DL (7-18); CHLORIDE 111 MEQ/L (98-107); GLOMERULAR FILTRATION RATE 56 ML/MIN (>89); POTASSIUM 4.9 MEQ/L (3.5-5.1); SODIUM (NA) 142 MEQ/L (136-145); TRANSFERRIN IRON PROFILE 230 MG/DL (200-360)
[2017-03-19 04:44] LABS: FERRITIN 119 NG/ML (26-388)
[2017-03-19] MEDS: hydrALAZINE HCL 50 MG TAB PO SCH ×3 (05:04→20:35)
[2017-03-19] MEDS: PANTOPRAZOLE SOD 40 MG DELAYED RELEASE TAB PO SCH (05:04)
[2017-03-19] MEDS: HEPARIN SODIUM - SQ 10,000 UNITS/ML VIAL SQ SCH ×2 (05:08→17:36)
[2017-03-19] MEDS: INSULIN NovoLIN REGULAR SUPPLEMENTAL SCALE SQ SCH ×4 (06:30→20:39)
[2017-03-19 07:26] LABS: CREATINE KINASE 116 U/L (39-308); FREE T4 0.99 NG/DL (0.76-1.46); HDL CHOLESTEROL 43.5 MG/DL (40.0-60.0); LDL CHOLESTEROL 47 MG/DL (0-99)
[2017-03-19] MEDS: FUROSEMIDE 40 MG TAB PO SCH (08:20)
[2017-03-19] MEDS: METOPROLOL SUCCINATE 50 MG EXTENDED RELEASE TAB PO SCH (08:20)
[2017-03-19] MEDS: guaiFENesin E.R. 600 MG TAB PO SCH ×2 (08:20→20:35)
[2017-03-19] MEDS: DOCUSATE SODIUM 100 MG CAP PO SCH ×2 (08:21→20:36)
[2017-03-19] MEDS: SODIUM CHLORIDE 0.9% FLUSH 10 ML FLUSH IV FLUSH SCH ×2 (08:21→20:40)
[2017-03-19] MEDS: NICOTINE 21 MG/24 HR PATCH T-DERMAL SCH (08:23)
[2017-03-19] MEDS: LISINOPRIL 20 MG TAB PO SCH (08:28)
[2017-03-19] MEDS: REMOVE OLD PATCH T-DERMAL SCH (08:28)
[2017-03-19] MEDS ORDERED: SPIRONOLACTONE 25 MG TAB PO SCH (09:00)
--- NOTE | 2017-03-19 11:40 | HHI.PR ---
Subjective Remarks This is a 66-year-old male with hypertension, insulin-dependent diabetes mellitus, COPD with ongoing tobacco use and GERD who presents to [facility] ED with complaints of chest pain and dyspnea on exertion for the past 3 days. Patient reports nonradicular chest pain is intermittent occurring 2-3 times a day worse with movement. He denies any alleviating factors. He denies any associated palpitations, dizziness, nausea/vomiting, diaphoresis, presyncope/syncope or abdominal pain. has chronic lower extremity edema and trophic changes, He does state for the past week he's had sore throat and runny nose and a cough. He denies any fever or chills. he has Morbid obesity and probable INES but even he had in the past a Polysomnography but lost the result, He does report a history of MRSA about 2-3 years ago on the right hand which required I&D procedure. chest x-ray was obtained which revealed findings suggestive of pulmonary venous hypertension with equalization of pulmonary flow. His BNP was 267. has chronic kidney disease at baseline. 03/19: Seen in his bedroom, improving respiratory status, asked for Echocardiogram, no nausea, vomit or diarrhea. Objective Vital Signs Date Time Temp Pulse Resp B/P Pulse Ox O2 Delivery O2 Flow Rate FiO2 03/19/17 08:20 68 03/19/17 08:19 97.6 77 20 151/82 94 03/19/17 04:00 97.0 79 20 153/82 91 03/19/17 03:49 91 Nasal Cannula 2.00 03/19/17 02:00 97.3 77 20 182/87 90 03/19/17 01:28 71 18 140/91 98 Room Air 03/18/17 23:38 65 20 182/110 97 Room Air 03/18/17 20:48 93 21 03/18/17 17:19 65 22 164/85 95 Room Air 03/18/17 16:06 95 03/18/17 14:45 98.6 71 20 173/81 95 Room Air I/O 03/18/17 03/18/17 03/18/17 03/19/17 03/19/17 03/19/17 07:00 15:00 23:00 07:00 15:00 23:00 Intake Total 600 ml Output Total 2100 ml Balance -1500 ml Intake Oral 600 ml Output Urine Total 2100 ml # Voids 3 # Bowel Movements 0 Result Diagram: 03/19/17 0413 03/19/17 0413 Imaging Last Impressions Chest X-Ray 03/18/17 7507 Signed Impressions: Service Date/Time: Saturday, March 18, 2017 15:07 - CONCLUSION: Findings suggest pulmonary venous hypertension with equalization of pulmonary flow. No focal areas of alveolar consolidation. Federico Ocampo MD Procedures No procedures performed. Other Results Laboratory Tests Test 03/18/17 03/19/17 03/19/17 16:00 01:15 04:13 Prothrombin Time 10.0 SEC Prothromb Time International 0.9 RATIO Ratio Activated Partial 27.9 SEC Thromboplast Time Magnesium Level 2.2 MG/DL Creatine Kinase MB 2.6 NG/ML B-Type Natriuretic Peptide 267 PG/ML Urine Color YELLOW Urine Turbidity CLEAR Urine pH 5.5 Urine Specific [place] 1.011 Urine Protein 100 mg/dL Urine Glucose (UA) NEG mg/dL Urine Ketones NEG mg/dL Urine Occult Blood NEG Urine Nitrite NEG Urine Bilirubin NEG Urine Urobilinogen LESS THAN 2.0 MG/DL Urine Leukocyte Esterase MOD Urine RBC 6 /hpf Urine WBC 24 /hpf Urine Squamous Epithelial <1 /hpf Cells Urine Bacteria RARE /hpf Microscopic Urinalysis Comment CULTURE INDICATED White Blood Count 11.0 TH/MM3 Red Blood Count 3.27 MIL/MM3 Hemoglobin 10.6 GM/DL Hematocrit 31.2 % Mean Corpuscular Volume 95.3 FL Mean Corpuscular Hemoglobin 32.3 PG Mean Corpuscular Hemoglobin 33.9 % Concent Red Cell Distribution Width 16.1 % Platelet Count 161 TH/MM3 Mean Platelet Volume 9.7 FL Neutrophils (%) (Auto) 63.5 % Lymphocytes (%) (Auto) 26.5 % Monocytes (%) (Auto) 7.1 % Eosinophils (%) (Auto) 1.8 % Basophils (%) (Auto) 1.1 % Neutrophils # (Auto) 7.0 TH/MM3 Lymphocytes # (Auto) 2.9 TH/MM3 Monocytes # (Auto) 0.8 TH/MM3 Eosinophils # (Auto) 0.2 TH/MM3 Basophils # (Auto) 0.1 TH/MM3 CBC Comment DIFF FINAL Differential Comment Sodium Level 142 MEQ/L Potassium Level 4.9 MEQ/L Chloride Level 111 MEQ/L Carbon Dioxide Level 27.9 MEQ/L Anion Gap 3 MEQ/L Blood Urea Nitrogen 33 MG/DL Creatinine 1.51 MG/DL Estimat Glomerular Filtration 56 ML/MIN Rate Random Glucose 135 MG/DL Calcium Level 8.8 MG/DL Iron Level 59 MCG/DL Total Iron Binding Capacity 322 MCG/DL Percent Iron Saturation 18.3 % Ferritin 119 NG/ML Total Creatine Kinase 116 U/L Troponin I LESS THAN 0.02 NG/ML Triglycerides Level 76 MG/DL Cholesterol Level 106 MG/DL LDL Cholesterol 47 MG/DL HDL Cholesterol 43.5 MG/DL Cholesterol/HDL Ratio 2.43 RATIO Free Thyroxine 0.99 NG/DL Thyroid Stimulating Hormone 1.690 uIU/ML 3rd Gen Objective Remarks GENERAL: Morbid obesity. No acute distress. SKIN: Warm and dry. Elephantitis changes of bilateral lower extremities with thick roughened skin. HEAD: Atraumatic. Normocephalic. No temporal or scalp tenderness. EYES: Pupils equal round and reactive. Extraocular motions intact. No scleral icterus. No injection or drainage. ENT: Nose without bleeding, purulent drainage or septal hematoma. Throat without erythema, tonsillar hypertrophy or exudate. Uvula midline. Airway patent. NECK: Trachea midline. No lymphadenopathy. Supple, nontender, no meningeal signs. CARDIOVASCULAR: Regular rate and rhythm without murmurs, gallops, or rubs. Chest pain not reproducible on exam. RESPIRATORY: Clear to auscultation. Diminished breath bilaterally due to patient's body habitus. No wheezes, rales, or rhonchi. GASTROINTESTINAL: Abdomen soft, non-tender, nondistended. No hepato-splenomegaly , or palpable masses. No guarding. MUSCULOSKELETAL: Extremities without clubbing or cyanosis. 3+ edema BLEs. NEUROLOGICAL: Awake and alert. No focal deficits. Medications and IVs Current Medications Medications (Trade) Dose Ordered Sig/Marleny Route Start Time Stop Time Status Last Admin (Norvasc) 10 mg DAILY PO 03/19/17 09:00 03/19/17 08:20 (Lasix) 40 mg DAILY PO 03/19/17 09:00 03/19/17 08:20 (Apresoline) 100 mg Q8HR PO 03/18/17 22:00 03/19/17 05:04 (Prinivil) 20 mg DAILY PO 03/19/17 09:00 03/19/17 08:28 (Toprol Xl) 100 mg DAILY PO 03/19/17 09:00 03/19/17 08:20 (Protonix) 40 mg DAILY@06 PO 03/19/17 06:00 03/19/17 05:04 (NS Flush) 2 ml UNSCH PRN IV FLUSH 03/18/17 17:30 (NS Flush) 2 ml BID IV FLUSH 03/18/17 21:00 03/19/17 08:21 (Tylenol) 650 mg Q4H PRN PO 03/18/17 17:30 (Zofran Inj) 4 mg Q6H PRN IVP 03/18/17 17:30 (Dulcolax Supp) 10 mg DAILY PRN RECTAL 03/18/17 17:30 (Colace) 100 mg Q12H PO 03/18/17 21:00 03/18/17 23:39 (Heparin Inj) 5,000 units Q12H SQ 03/18/17 18:00 03/19/17 05:08 (Narcan Inj) 0.4 mg UNSCH PRN IV 03/18/17 17:30 (Mucinex Er) 600 mg BID PO 03/18/17 21:00 03/19/17 08:20 (Habitrol 21 Mg Patch.24 Hr) 1 patch DAILY T-DERMAL 03/19/17 09:00 03/19/17 08:23 Miscellaneous Information 1 DAILY T-DERMAL 03/18/17 18:15 03/19/17 08:28 A/P Assessment and Plan Respiratory Insufficiency Multifactorial secondary Obesity Hypoventilation syndrome, COPD, doubt at this time anything has to be with CHF received diuretics improving condition with also respiratory management. Pulmonary Hypertension, possible INES he is not been diagnosed yet and will need Polysomnography as outpatient Atypical chest pain. - Negative Cardiac enzymes. - EKG personally reviewed shows normal sinus rhythm with no evidence of acute ischemia HTN - BP 164/85 - Resume home antihypertensive medication - Continue to monitor BP - Adjust treatment as indicated - Chest x-ray shows findings suggestive of pulmonary venous hypertension CKD III at baseline. - Avoid nephrotoxic agents - Repeat labs in a.m. to monitor trend, Hold spironolactone and see his behavior in am. IDDM - obtain A1c. Last A1c in the system 08/27/09 was 14.5 - accuchecks - ISS - Hold home metformin in the event of further cardiac testing - Diabetic heart healthy diet COPD with ongoing tobacco use and suspected exacerbation secondary to upper respiratory infection - Continue Bronchodilator, Mucolytic and incentive spirometry. INES/Obesity Hypoventilation syndrome will need a Polysomnogram as outpatient.; Tobacco dependence strongly recommended to stop smoking, Nicotine patch placed. Anemia, chronic, stable Significant bilateral lower extremity edema, chronic/Lymphedema will need Lymphedema therapy. Morbid Obesity Strongly recommended diet and exercise, weight loss warranted. GERD - Protonix 40mg daily DVT prophylaxis - Heparin subcutaneous Code Status Full code. Discussed Condition With Patient and nurse Miss Baker Discharge Planning Expected by tomorrow. Valentin Chanel MD Mar 19, 2017 11:40 Weight gain - monitor daily weights and I&Os GERD - Protonix 40mg daily DVT prophylaxis - Heparin subcutaneous Discussed with patient and Dr. Millan Patient seen in his bedroom face to face, examined and plan of care indicated by me. Code Status Full code. Discussed Condition With Valentin Chanel MD Mar 19, 2017 11:40
--- NOTE | 2017-03-19 12:27 | EKG ---
Date Performed: 03/18/2017 Time Performed: 15:18:36 PTAGE: 66 years EKG: Sinus rhythm BORDERLINE LEFT AXIS DEVIATION BORDERLINE ECG Compared to prior tracing no significant change PREVIOUS TRACING : 07/22/2016 22.19 DOCTOR: Ji Kelley Interpretating Date/Time 03/19/2017 12:26:38
[2017-03-19 16:14] LABS: HEMOGLOBIN A1a 0.8 %; HEMOGLOBIN LA1C 2.5 %; HEMOGLOBIN P3 5.8 %
[2017-03-20] VITALS: BP 165/78; PULSE 83; RESP 20; TEMP 97.4; O2SAT 94
[2017-03-20 01:45] VITALS: PULSE 63
[2017-03-20] MEDS: RESP: ALBUTEROL 2.5 MG/IPRATROPIUM 0.5 MG NEB (SCH) NEB ×3 (03:28→11:51)
[2017-03-20 04:00] VITALS: BP 150/78; PULSE 77; RESP 20; TEMP 97.5; O2SAT 93
[2017-03-20] MEDS: PANTOPRAZOLE SOD 40 MG DELAYED RELEASE TAB PO SCH (05:07)
[2017-03-20] MEDS: hydrALAZINE HCL 50 MG TAB PO SCH (05:07)
[2017-03-20] MEDS: HEPARIN SODIUM - SQ 10,000 UNITS/ML VIAL SQ SCH (05:09)
[2017-03-20] MEDS: INSULIN NovoLIN REGULAR SUPPLEMENTAL SCALE SQ SCH ×2 (06:41→11:00)
[2017-03-20 07:45] LABS: BICARBONATE 26.7 MEQ/L (21.0-32.0); POTASSIUM 5.2 MEQ/L (3.5-5.1)
[2017-03-20 08:00] VITALS: BP 146/72; PULSE 68; RESP 16; TEMP 97.7; O2SAT 94
[2017-03-20 08:44] VITALS: O2SAT 97
[2017-03-20] MEDS: DOCUSATE SODIUM 100 MG CAP PO SCH (09:00)
[2017-03-20] MEDS: METOPROLOL SUCCINATE 50 MG EXTENDED RELEASE TAB PO SCH (10:22)
[2017-03-20] MEDS: LISINOPRIL 20 MG TAB PO SCH (10:23)
[2017-03-20] MEDS: FUROSEMIDE 40 MG TAB PO SCH (10:23)
[2017-03-20] MEDS: guaiFENesin E.R. 600 MG TAB PO SCH (10:24)
[2017-03-20] MEDS: REMOVE OLD PATCH T-DERMAL SCH (10:26)
[2017-03-20] MEDS: NICOTINE 21 MG/24 HR PATCH T-DERMAL SCH (10:26)
[2017-03-20] MEDS: SODIUM CHLORIDE 0.9% FLUSH 10 ML FLUSH IV FLUSH SCH (10:28)
--- NOTE | 2017-03-20 10:37 | HHI.PR ---
Subjective Remarks This is a 66-year-old male with hypertension, insulin-dependent diabetes mellitus, COPD with ongoing tobacco use and GERD who presents to [facility] ED with complaints of chest pain and dyspnea on exertion for the past 3 days. Patient reports nonradicular chest pain is intermittent occurring 2-3 times a day worse with movement. He denies any alleviating factors. He denies any associated palpitations, dizziness, nausea/vomiting, diaphoresis, presyncope/syncope or abdominal pain. has chronic lower extremity edema and trophic changes, He does state for the past week he's had sore throat and runny nose and a cough. He denies any fever or chills. he has Morbid obesity and probable NIES but even he had in the past a Polysomnography but lost the result, He does report a history of MRSA about 2-3 years ago on the right hand which required I&D procedure. chest x-ray was obtained which revealed findings suggestive of pulmonary venous hypertension with equalization of pulmonary flow. His BNP was 267. has chronic kidney disease at baseline. 03/19: Seen in his bedroom, improving respiratory status, asked for Echocardiogram, no nausea, vomit or diarrhea. 03/20: Patient stable, No Nausea, vomit or diarrhea, wants to go home, oxygen saturation at room air is 95%. no need for Home Oxygen at this time, all questions answered. but he states continue Smoking 15 cigarettes daily. Objective Vital Signs Date Time Temp Pulse Resp B/P Pulse Ox O2 Delivery O2 Flow Rate FiO2 03/20/17 08:44 97 Nasal Cannula 2.00 03/20/17 08:00 97.7 68 16 146/72 94 03/20/17 04:00 97.5 77 20 150/78 93 03/20/17 01:45 63 03/20/17 00:00 97.4 83 20 165/78 94 03/19/17 22:21 87 03/19/17 20:05 97 Nasal Cannula 2.00 03/19/17 20:00 97.3 68 20 169/81 94 03/19/17 16:03 95 Nasal Cannula 2.00 03/19/17 16:03 97.5 68 20 150/80 96 03/19/17 13:35 66 20 161/83 03/19/17 12:10 97.6 78 18 151/79 95 I/O 03/19/17 03/19/17 03/19/17 03/20/17 03/20/17 03/20/17 07:00 15:00 23:00 07:00 15:00 23:00 Intake Total 600 ml 720 ml 240 ml 480 ml Output Total 2100 ml 1200 ml 300 ml 400 ml Balance -1500 ml -480 ml -60 ml 80 ml Intake Oral 600 ml 720 ml 240 ml 480 ml Output Urine Total 2100 ml 1200 ml 300 ml 400 ml # Voids 3 # Bowel Movements 0 0 0 0 Result Diagram: 03/19/17 0413 03/20/17 0650 Imaging Last Impressions Chest X-Ray 03/18/17 1457 Signed Impressions: Service Date/Time: Saturday, March 18, 2017 15:07 - CONCLUSION: Findings suggest pulmonary venous hypertension with equalization of pulmonary flow. No focal areas of alveolar consolidation. Federico Ocampo MD Procedures No procedures performed. Other Results Laboratory Tests Test 03/18/17 03/19/17 03/19/17 03/20/17 16:00 01:15 04:13 06:50 Prothrombin Time 10.0 SEC Prothromb Time International 0.9 RATIO Ratio Activated Partial 27.9 SEC Thromboplast Time Magnesium Level 2.2 MG/DL Creatine Kinase MB 2.6 NG/ML B-Type Natriuretic Peptide 267 PG/ML Urine Color YELLOW Urine Turbidity CLEAR Urine pH 5.5 Urine Specific [place] 1.011 Urine Protein 100 mg/dL Urine Glucose (UA) NEG mg/dL Urine Ketones NEG mg/dL Urine Occult Blood NEG Urine Nitrite NEG Urine Bilirubin NEG Urine Urobilinogen LESS THAN 2.0 MG/DL Urine Leukocyte Esterase MOD Urine RBC 6 /hpf Urine WBC 24 /hpf Urine Squamous Epithelial <1 /hpf Cells Urine Bacteria RARE /hpf Microscopic Urinalysis Comment CULTURE INDICATED White Blood Count 11.0 TH/MM3 Red Blood Count 3.27 MIL/MM3 Hemoglobin 10.6 GM/DL Hematocrit 31.2 % Mean Corpuscular Volume 95.3 FL Mean Corpuscular Hemoglobin 32.3 PG Mean Corpuscular Hemoglobin 33.9 % Concent Red Cell Distribution Width 16.1 % Platelet Count 161 TH/MM3 Mean Platelet Volume 9.7 FL Neutrophils (%) (Auto) 63.5 % Lymphocytes (%) (Auto) 26.5 % Monocytes (%) (Auto) 7.1 % Eosinophils (%) (Auto) 1.8 % Basophils (%) (Auto) 1.1 % Neutrophils # (Auto) 7.0 TH/MM3 Lymphocytes # (Auto) 2.9 TH/MM3 Monocytes # (Auto) 0.8 TH/MM3 Eosinophils # (Auto) 0.2 TH/MM3 Basophils # (Auto) 0.1 TH/MM3 CBC Comment DIFF FINAL Differential Comment Hemoglobin A1c 5.9 % Iron Level 59 MCG/DL Total Iron Binding Capacity 322 MCG/DL Percent Iron Saturation 18.3 % Ferritin 119 NG/ML Total Creatine Kinase 116 U/L Troponin I LESS THAN 0.02 NG/ML Triglycerides Level 76 MG/DL Cholesterol Level 106 MG/DL LDL Cholesterol 47 MG/DL HDL Cholesterol 43.5 MG/DL Cholesterol/HDL Ratio 2.43 RATIO Free Thyroxine 0.99 NG/DL Thyroid Stimulating Hormone 1.690 uIU/ML 3rd Gen Sodium Level 140 MEQ/L Potassium Level 5.2 MEQ/L Chloride Level 108 MEQ/L Carbon Dioxide Level 26.7 MEQ/L Anion Gap 5 MEQ/L Blood Urea Nitrogen 32 MG/DL Creatinine 1.34 MG/DL Estimat Glomerular Filtration 65 ML/MIN Rate Random Glucose 119 MG/DL Calcium Level 8.6 MG/DL Objective Remarks GENERAL: Morbid obesity. No acute distress. SKIN: Warm and dry. Elephantitis changes of bilateral lower extremities with thick roughened skin. HEAD: Atraumatic. Normocephalic. No temporal or scalp tenderness. EYES: Pupils equal round and reactive. Extraocular motions intact. No scleral icterus. No injection or drainage. ENT: Nose without bleeding, purulent drainage or septal hematoma. Throat without erythema, tonsillar hypertrophy or exudate. Uvula midline. Airway patent. NECK: Trachea midline. No lymphadenopathy. Supple, nontender, no meningeal signs. CARDIOVASCULAR: Regular rate and rhythm without murmurs, gallops, or rubs. Chest pain not reproducible on exam. RESPIRATORY: Clear to auscultation. Diminished breath bilaterally due to patient's body habitus. No wheezes, rales, or rhonchi. GASTROINTESTINAL: Abdomen soft, non-tender, nondistended. No hepato-splenomegaly , or palpable masses. No guarding. MUSCULOSKELETAL: Extremities without clubbing or cyanosis. 3+ edema BLEs. NEUROLOGICAL: Awake and alert. No focal deficits. Medications and IVs Current Medications Medications (Trade) Dose Ordered Sig/Marleny Route Start Time Stop Time Status Last Admin (Norvasc) 10 mg DAILY PO 03/19/17 09:00 03/20/17 10:23 (Lasix) 40 mg DAILY PO 03/19/17 09:00 03/20/17 10:23 (Apresoline) 100 mg Q8HR PO 03/18/17 22:00 03/20/17 05:07 (Prinivil) 20 mg DAILY PO 03/19/17 09:00 03/20/17 10:23 (Toprol Xl) 100 mg DAILY PO 03/19/17 09:00 03/20/17 10:22 (Protonix) 40 mg DAILY@06 PO 03/19/17 06:00 03/20/17 05:07 (NS Flush) 2 ml UNSCH PRN IV FLUSH 03/18/17 17:30 (NS Flush) 2 ml BID IV FLUSH 03/18/17 21:00 03/20/17 10:28 (Tylenol) 650 mg Q4H PRN PO 03/18/17 17:30 (Zofran Inj) 4 mg Q6H PRN IVP 03/18/17 17:30 (Dulcolax Supp) 10 mg DAILY PRN RECTAL 03/18/17 17:30 (Colace) 100 mg Q12H PO 03/18/17 21:00 03/19/17 20:36 (Heparin Inj) 5,000 units Q12H SQ 03/18/17 18:00 03/20/17 05:09 (Narcan Inj) 0.4 mg UNSCH PRN IV 03/18/17 17:30 (Mucinex Er) 600 mg BID PO 03/18/17 21:00 03/20/17 10:24 (Habitrol 21 Mg Patch.24 Hr) 1 patch DAILY T-DERMAL 03/19/17 09:00 03/20/17 10:26 Miscellaneous Information 1 DAILY T-DERMAL 03/18/17 18:15 03/20/17 10:26 A/P Assessment and Plan Respiratory Insufficiency Multifactorial secondary Obesity Hypoventilation syndrome, COPD, doubt at this time anything has to be with CHF received diuretics improving condition with also respiratory management. Pulmonary Hypertension, possible INES he is not been diagnosed yet and will need Polysomnography as outpatient Improving at this time and will need to get a follow up with PCP for Polysomnogram. Optimized pulmonary medicine with Symbicort and Prednisone for 5 days Atypical chest pain. - Negative Cardiac enzymes. - EKG personally reviewed shows normal sinus rhythm with no evidence of acute ischemia HTN - controlled. - Chest x-ray shows findings suggestive of pulmonary venous hypertension CKD III at baseline. - Avoid nephrotoxic agents - Repeat labs in a.m. to monitor trend, Hold spironolactone and see his behavior in am. IDDM - obtain A1c. 5.6 - accuchecks - ISS - continue Home medicines. COPD with ongoing tobacco use and suspected exacerbation secondary to upper respiratory infection - Continue Bronchodilator, Mucolytic and incentive spirometry. - Strongly recommended to stop smoking INES/Obesity Hypoventilation syndrome will need a Polysomnogram as outpatient.; Tobacco dependence strongly recommended to stop smoking, Nicotine patch placed. Anemia, chronic, stable Significant bilateral lower extremity edema, chronic/Lymphedema will need Lymphedema therapy. Morbid Obesity Strongly recommended diet and exercise, weight loss warranted. GERD - Protonix 40mg daily UTI asymptomatic given Ceftriaxone and continue Cipro for 3 days. DVT prophylaxis - Heparin subcutaneous Code Status Full code. Discussed Condition With Patient and nurse Discharge Planning Discharge Home today Valentin Chanel MD Mar 20, 2017 10:37
[2017-03-20 11:30] VITALS: O2SAT 97
[2017-03-20] MEDS ORDERED: CIPR-9 PO (11:56)
[2017-03-20] MEDS ORDERED: SYMB160A INH (11:56)
[2017-03-20] MEDS ORDERED: NICO21DI2 T-DERMAL (11:56)
[2017-03-20] MEDS ORDERED: cefTRIAXone INJ 1,000 MG in SODIUM CHLORIDE 0.9% INJ 100 ML IV ONE (12:00)
[2017-03-20] MEDS ORDERED: PRED20 PO (13:01)
--- NOTE | 2017-03-20 13:05 | HHI.DS ---
Discharge Summary Admission Date Mar 18, 2017 at 17:27 Discharge Date: Mar 20, 2017 Admitting Diagnosis CHF exacerbation (1) SOB (shortness of breath) ICD Code: R06.02 Diagnosis: Principal (2) DM (diabetes mellitus) ICD Code: E11.9 Diagnosis: Secondary (3) Morbid obesity ICD Code: E66.01 Diagnosis: Principal (4) CHF (congestive heart failure) ICD Code: I50.9 Diagnosis: Principal (5) COPD (chronic obstructive pulmonary disease) ICD Code: J44.9 Diagnosis: Principal Procedures No procedures performed. Brief History - From Admission This is a 66-year-old morbidly obese male with a past medical history significant for hypertension, insulin-dependent diabetes mellitus, COPD with ongoing tobacco use and GERD who presents to [facility] ED with complaints of chest pain and dyspnea on exertion for the past 3 days. Patient reports nonradicular chest pain is intermittent occurring 2-3 times a day worse with movement. He denies any alleviating factors. He denies any associated palpitations, dizziness, nausea/vomiting, diaphoresis, presyncope/syncope or abdominal pain. He does state for the past week he's had sore throat and runny nose and a cough. He denies any fever or chills. He has had a decreased appetite. Patient denies any previous history of congestive heart failure and states he's never had an echocardiogram. He denies any orthopnea or PND. He does report chronic bilateral lower extremity swelling. He also denies any known history of sleep apnea. He does report a history of MRSA about 2-3 years ago on the right hand which required I&D procedure. He reports weight gain of 30 pounds in the past 30 days. He states his been urinating without any difficulty. His last bowel movement was yesterday. He denies any bladder irritative symptoms or hematochezia or melena. In the ED, chest x-ray was obtained which revealed findings suggestive of pulmonary venous hypertension with equalization of pulmonary flow. His BNP was 267. He is noted to have elevated creatinine of 1.35. Initial troponin is less than 0.02. EKG showed sinus rhythm with no evidence of acute ischemia or arrhythmia. CBC/BMP: 03/19/17 0413 03/20/17 0650 Significant Findings Laboratory Tests Test 03/18/17 03/18/17 03/19/17 03/19/17 16:00 23:25 01:15 04:13 Red Blood Count 3.20 MIL/MM3 3.27 MIL/MM3 (4.50-5.90) (4.50-5.90) Hemoglobin 10.1 GM/DL 10.6 GM/DL (13.0-17.0) (13.0-17.0) Hematocrit 30.8 % 31.2 % (39.0-51.0) (39.0-51.0) Monocytes (%) (Auto) 9.3 % (0.0-8.0) Chloride Level 113 MEQ/L 111 MEQ/L (98-107) (98-107) Blood Urea Nitrogen 30 MG/DL (7-18) 33 MG/DL (7-18) Creatinine 1.35 MG/DL 1.51 MG/DL (0.60-1.30) (0.60-1.30) Estimat Glomerular Filtration 64 ML/MIN (>89) 56 ML/MIN (>89) Rate Calcium Level 8.4 MG/DL (8.5-10.1) Troponin I LESS THAN 0.02 LESS THAN 0.02 LESS THAN 0.02 NG/ML NG/ML NG/ML (0.02-0.05) (0.02-0.05) (0.02-0.05) B-Type Natriuretic Peptide 267 PG/ML (0-100) Urine Protein 100 mg/dL (NEG-TRACE) Urine Leukocyte Esterase MOD (NEG) Urine RBC 6 /hpf (0-3) Urine WBC 24 /hpf (0-5) Urine Bacteria RARE /hpf (NONE) Anion Gap 3 MEQ/L (5-15) Random Glucose 135 MG/DL (74-106) Iron Level 59 MCG/DL (65-175) Percent Iron Saturation 18.3 % (20-50) Cholesterol Level 106 MG/DL (120-200) Test 03/20/17 06:50 Potassium Level 5.2 MEQ/L (3.5-5.1) Chloride Level 108 MEQ/L (98-107) Blood Urea Nitrogen 32 MG/DL (7-18) Creatinine 1.34 MG/DL (0.60-1.30) Estimat Glomerular Filtration 65 ML/MIN (>89) Rate Random Glucose 119 MG/DL (74-106) Imaging Last Impressions Chest X-Ray 03/18/17 6017 Signed Impressions: Service Date/Time: Saturday, March 18, 2017 15:07 - CONCLUSION: Findings suggest pulmonary venous hypertension with equalization of pulmonary flow. No focal areas of alveolar consolidation. Federico Ocampo MD PE at Discharge GENERAL: Morbid obesity. No acute distress. SKIN: Warm and dry. Elephantitis changes of bilateral lower extremities with thick roughened skin. HEAD: Atraumatic. Normocephalic. No temporal or scalp tenderness. EYES: Pupils equal round and reactive. Extraocular motions intact. No scleral icterus. No injection or drainage. ENT: Nose without bleeding, purulent drainage or septal hematoma. Throat without erythema, tonsillar hypertrophy or exudate. Uvula midline. Airway patent. NECK: Trachea midline. No lymphadenopathy. Supple, nontender, no meningeal signs. CARDIOVASCULAR: Regular rate and rhythm without murmurs, gallops, or rubs. Chest pain not reproducible on exam. RESPIRATORY: Clear to auscultation. Diminished breath bilaterally due to patient's body habitus. No wheezes, rales, or rhonchi. GASTROINTESTINAL: Abdomen soft, non-tender, nondistended. No hepato-splenomegaly , or palpable masses. No guarding. MUSCULOSKELETAL: Extremities without clubbing or cyanosis. 3+ edema BLEs. NEUROLOGICAL: Awake and alert. No focal deficits. Hospital Course This is a 66-year-old male with hypertension, insulin-dependent diabetes mellitus, COPD with ongoing tobacco use and GERD who presents to [facility] ED with complaints of chest pain and dyspnea on exertion for the past 3 days. Patient reports nonradicular chest pain is intermittent occurring 2-3 times a day worse with movement. He denies any alleviating factors. He denies any associated palpitations, dizziness, nausea/vomiting, diaphoresis, presyncope/syncope or abdominal pain. has chronic lower extremity edema and trophic changes, He does state for the past week he's had sore throat and runny nose and a cough. He denies any fever or chills. he has Morbid obesity and probable INES but even he had in the past a Polysomnography but lost the result, He does report a history of MRSA about 2-3 years ago on the right hand which required I&D procedure. chest x-ray was obtained which revealed findings suggestive of pulmonary venous hypertension with equalization of pulmonary flow. His BNP was 267. has chronic kidney disease at baseline. 03/19: Seen in his bedroom, improving respiratory status, asked for Echocardiogram, no nausea, vomit or diarrhea. 03/20: Patient stable, No Nausea, vomit or diarrhea, wants to go home, oxygen saturation at room air is 95%. no need for Home Oxygen at this time, all questions answered. but he states continue Smoking 15 cigarettes daily. Assessment and Plan Respiratory Insufficiency Multifactorial secondary Obesity Hypoventilation syndrome, COPD, doubt at this time anything has to be with CHF received diuretics improving condition with also respiratory management. Pulmonary Hypertension, possible INES he is not been diagnosed yet and will need Polysomnography as outpatient Improving at this time and will need to get a follow up with PCP for Polysomnogram. Optimized pulmonary medicine with Symbicort and Prednisone for 5 days Atypical chest pain. - Negative Cardiac enzymes. - EKG personally reviewed shows normal sinus rhythm with no evidence of acute ischemia HTN - controlled. - Chest x-ray shows findings suggestive of pulmonary venous hypertension CKD III at baseline. - Avoid nephrotoxic agents - Repeat labs in a.m. to monitor trend, Hold spironolactone and see his behavior in am. IDDM - obtain A1c. 5.6 - accuchecks - ISS - continue Home medicines. COPD with ongoing tobacco use and suspected exacerbation secondary to upper respiratory infection - Continue Bronchodilator, Mucolytic and incentive spirometry. - Strongly recommended to stop smoking INES/Obesity Hypoventilation syndrome will need a Polysomnogram as outpatient.; Tobacco dependence strongly recommended to stop smoking, Nicotine patch placed. Anemia, chronic, stable Significant bilateral lower extremity edema, chronic/Lymphedema will need Lymphedema therapy. Morbid Obesity Strongly recommended diet and exercise, weight loss warranted. GERD - Protonix 40mg daily UTI asymptomatic given Ceftriaxone and continue Cipro for 3 days. DVT prophylaxis - Heparin subcutaneous Code Status Full code. Discussed Condition With Patient and nurse Discharge Planning Discharge Home today 37 Pt Condition on Discharge: Good Discharge Disposition: Discharge Home Discharge Time: <= 30 minutes Discharge Instructions DIET: Follow Instructions for: Heart Healthy Diet Activities you can perform: Regular-No Restrictions Valentin Chanel MD Mar 20, 2017 13:05
== END 2017-03-20 13:08 | disposition home or self-care (01) | DRG 191 ==
LOC: NEPC 14:43 → NEDA 17:21 → OBSVTOIN 17:27 → NEDH 22:06 → N04B 03-19 01:42
PROVIDERS: ADMIT Internal Medicine; ATTEND Internal Medicine
DX: J44.1 Chronic obstructive pulmonary disease with (acute) exacerbation (principal); E66.2 Morbid (severe) obesity with alveolar hypoventilation; N17.9 Acute kidney failure, unspecified; I27.2 Other secondary pulmonary hypertension; E11.22 Type 2 diabetes mellitus with diabetic chronic kidney disease; I50.9 Heart failure, unspecified; N18.3 Chronic kidney disease, stage 3 (moderate); N18.9 Chronic kidney disease, unspecified; Z79.4 Long term (current) use of insulin; Z86.14 Personal history of Methicillin resistant Staphylococcus aureus infection; M19.90 Unspecified osteoarthritis, unspecified site; M10.9 Gout, unspecified; K21.9 Gastro-esophageal reflux disease without esophagitis; D64.9 Anemia, unspecified; I89.0 Lymphedema, not elsewhere classified; F17.210 Nicotine dependence, cigarettes, uncomplicated; I12.9 Hypertensive chronic kidney disease with stage 1 through stage 4 chronic kidney disease, or unspecified chronic kidney disease; R07.89 Other chest pain
CPT/HCPCS: 71020; 80048; 80061; 81001; 82550; 82552; 82728; 82948; 83036; 83540; 83550; 83735; 83880; 84439; 84443; 84484; 85025; 85610; 85730; 87086; 93005; 94150; 94640; 94664; 96374; J0696; J1644; J1940

== ENCOUNTER 2017-05-23 19:15 | Inpatient (IN) | payer OTHER, MEDICARE ==
[~2017-05-23] VITALS: Ht 185.4 cm; Wt 166.5 kg
[2017-05-23] VITALS (9 sets, daily range): BP systolic 128–158; BP diastolic 70–73; PULSE 58–99; RESP 20–30; TEMP 98.3–99.6; O2SAT 77–100
[~2017-05-23 19:15] MED LIST changes: +CIPR-9 PO; +NICO21DI2 T-DERMAL; +PRED20 PO; +SYMB160A INH
[2017-05-23] MEDS ORDERED: ASPIRIN 81 MG CHEW TAB CHEW ONE (19:30)
[2017-05-23] MEDS ORDERED: FUROSEMIDE 40 MG/4 ML VIAL IVP ONE (19:30)
[2017-05-23] MEDS ORDERED: methylPREDNISolone SOD SUCC 125 MG/2 ML VIAL IVP ONE (19:30)
[2017-05-23] MEDS ORDERED: SODIUM CHLORIDE 0.9% FLUSH 10 ML FLUSH IVF PRN (19:30)
--- NOTE | 2017-05-23 19:32 | PD ---
HPI Chief Complaint: Respiratory Symptoms Time Seen by Provider: 19:20 Travel History International Travel<30 days: No Contact w/Intl Traveler<30days: No Traveled to known affect area: No History of Present Illness HPI The patient is a 66-year-old [place] male who presents emergency department for shortness of breath of one days duration. Patient notes increasing shortness of breath throughout the day with mild chest tightness. The patient shortness of breath is worse with lying supine and with exertion. The patient has a history of CHF and COPD, does note increased swelling to the lower extremities over the last 2 weeks. The patient denies any history of pulmonary embolism or DVT. The patient's primary physician is Dr. Chopra. He denies any fever, chills, sweats, or new productive cough. The patient denies any previous intubation but has been placed on BiPAP in the past. Symptoms are moderate, worse with lying supine and exertion, and slightly alleviated at rest and with oxygen. PFSH Past Medical History Arthritis: Yes Asthma: No Cancer: Yes (PROSTATE 5 YEARS AGO ) Cardiovascular Problems: Yes Chest Pain: Yes Congestive Heart Failure: Yes COPD: Yes Diabetes: Yes Diminished Hearing: No Endocrine: Yes Gastrointestinal Disorders: Yes (MORBID OBESITY) Gout: Yes Genitourinary: Yes Hypertension: Yes Immune Disorder: No Musculoskeletal: Yes Neurologic: No Psychiatric: No Reproductive: No Respiratory: Yes Radiation Therapy: Yes Sleep Apnea: Yes Past Surgical History Other Surgery: Yes (RT HAND) Social History Alcohol Use: No Tobacco Use: Yes (1 PPD) Substance Use: No Allergies-Medications (Allergen,Severity, Reaction): Coded Allergies: *MDRO Multi-Drug Resistant Organism (Verified Adverse Reaction, Unknown, ) MRSA (wounds) - 03/20/13 MRSA PCR Screen NEGATIVE - 03/19/16, 03/21/2016 CLEARED PER INFECTION CONTROL Reported Meds & Prescriptions Reported Meds & Active Scripts Active Prednisone 20 Mg Tab 20 Mg PO DAILY Symbicort Inh (Budesonide/Formoterol Fumarate) 160-4.5 Mcg/Act Aero 1 Puff INH Q12HR Reported Amlodipine (Amlodipine Besylate) 10 Mg Tab 10 Mg PO DAILY Ventolin Hfa 18 GM Inh (Albuterol Sulfate) 90 Mcg/Act Aer 2 Puff INH Q6H PRN Toprol XL (Metoprolol Succinate) 100 Mg Tab 100 Mg PO DAILY Lisinopril 20 Mg Tab 20 Mg PO DAILY Omeprazole 40 Mg Cap 40 Mg PO DAILY Metformin (Metformin HCl) 1,000 Mg Tab 1,000 Mg PO BID With meals Lasix (Furosemide) 40 Mg Tab 40 Mg PO DAILY Spironolactone 25 Mg Tab 25 Mg PO DAILY Review of Systems Except as stated in HPI: all other systems reviewed are Neg General / Constitutional: No: Fever HENT: No: Lightheadedness Cardiovascular: Positive: Chest Pain or Discomfort, Dyspnea on exertion Respiratory: Positive: Shortness of Breath, Wheezing, Orthopnea Gastrointestinal: No: Vomiting, Abdominal Pain Musculoskeletal: Positive: Edema Physical Exam Narrative GENERAL: Awake, alert, pleasant 66-year-old female who appears her stated age and is in moderate respiratory distress. SKIN: Focused skin assessment warm/dry. HEAD: Atraumatic. Normocephalic. EYES: No injection or drainage. Mild chemosis of the left eye. ENT: No nasal bleeding or discharge. Mucous membranes pink and moist. NECK: Trachea midline. No JVD. CARDIOVASCULAR: Regular rate and rhythm. No murmur appreciated. RESPIRATORY: Tachypnea with a respiratory rate of 26. Prolonged expiratory phase with diffuse wheezes and a few scattered rhonchi. GASTROINTESTINAL: Abdomen soft, obese, no rebound tenderness. MUSCULOSKELETAL: Bilateral lower extremity pitting edema that is weeping and lower extremities. NEUROLOGICAL: Awake and alert. No obvious cranial nerve deficits. Motor grossly within normal limits. Normal speech. PSYCHIATRIC: Appropriate mood and affect; insight and judgment normal. Data Data Last Documented VS Vital Signs Date Time Temp Pulse Resp B/P Pulse Ox O2 Delivery O2 Flow Rate FiO2 05/23/17 21:00 60 22 158/73 94 BiPAP 05/23/17 20:19 25 05/23/17 19:27 2 05/23/17 19:20 98.3 Orders Complete Blood Count With Diff (05/23/17 19:24) Comprehensive Metabolic Panel (05/23/17 19:24) B-Type Natriuretic Peptide (05/23/17 19:24) Act Partial Throm Time (Ptt) (05/23/17 19:24) Prothrombin Time / Inr (Pt) (05/23/17 19:24) Magnesium (Mg) (05/23/17 19:24) Ckmb (Isoenzyme) Profile (05/23/17 19:24) Troponin I (05/23/17 19:24) Iv Access Insert/Monitor (05/23/17 19:24) Electrocardiogram (05/23/17 19:24) Ecg Monitoring (05/23/17 19:24) Oximetry (05/23/17 19:24) Oxygen Administration (05/23/17 19:24) Chest, Single Ap (05/23/17 19:24) Sodium Chloride 0.9% Flush (Ns Flush) (05/23/17 19:30) Furosemide Inj (Lasix Inj) (05/23/17 19:30) Methylprednisolone So Succ Inj (Solumedr (05/23/17 19:30) Albuterol-Ipratropium Neb (Duoneb Neb) (05/23/17 19:30) Resp Bipap / Cpap Non Invas Vt (05/23/17 19:24) Lactic Acid (05/23/17 19:24) Blood Culture (05/23/17 19:24) Aspirin Chew (Aspirin Chew) (05/23/17 19:30) CKMB (05/23/17 20:40) CKMB% (05/23/17 20:40) Potassium, Serum (K) (05/24/17 00:29) Calcium Gluconate Inj (Calcium Gluconate (05/23/17 21:30) Insulin Human Regular Inj (Novolin R Inj (05/23/17 21:45) Dextrose 50% In Daniel (Vial) Inj (D50w (Vi (05/23/17 21:30) Sodium Bicarbonate 8.4% Inj (Sodium Bica (05/23/17 21:30) Albuterol Concentrated Neb (Albuterol Co (05/23/17 21:30) Sodium Polysty Sulfate Liq (Kayexalate L (05/23/17 21:30) Sodium Chlor 0.9% 1000 Ml Inj (Ns 1000 M (05/23/17 21:30) Admit Order (Ed Use Only) (05/23/17 21:42) Labs Laboratory Tests Test 05/23/17 05/23/17 19:30 20:40 White Blood Count 9.7 TH/MM3 Red Blood Count 3.82 MIL/MM3 Hemoglobin 12.3 GM/DL Hematocrit 38.0 % Mean Corpuscular Volume 99.6 FL Mean Corpuscular Hemoglobin 32.3 PG Mean Corpuscular Hemoglobin 32.5 % Concent Red Cell Distribution Width 14.5 % Platelet Count 223 TH/MM3 Mean Platelet Volume 9.8 FL Neutrophils (%) (Auto) 71.0 % Lymphocytes (%) (Auto) 18.0 % Monocytes (%) (Auto) 8.8 % Eosinophils (%) (Auto) 1.0 % Basophils (%) (Auto) 1.2 % Neutrophils # (Auto) 6.9 TH/MM3 Lymphocytes # (Auto) 1.8 TH/MM3 Monocytes # (Auto) 0.9 TH/MM3 Eosinophils # (Auto) 0.1 TH/MM3 Basophils # (Auto) 0.1 TH/MM3 CBC Comment DIFF FINAL Differential Comment Prothrombin Time 10.0 SEC Prothromb Time International 0.9 RATIO Ratio Activated Partial 30.7 SEC Thromboplast Time Lactic Acid Level 1.6 mmol/L B-Type Natriuretic Peptide 33 PG/ML Sodium Level 138 MEQ/L Potassium Level 8.0 MEQ/L Chloride Level 117 MEQ/L Carbon Dioxide Level 15.0 MEQ/L Anion Gap 6 MEQ/L Blood Urea Nitrogen 54 MG/DL Creatinine 3.84 MG/DL Estimat Glomerular Filtration 19 ML/MIN Rate Random Glucose 106 MG/DL Calcium Level 8.2 MG/DL Magnesium Level 2.5 MG/DL Total Bilirubin 0.1 MG/DL Aspartate Amino Transf 16 U/L (AST/SGOT) Alanine Aminotransferase 11 U/L (ALT/SGPT) Alkaline Phosphatase 78 U/L Total Creatine Kinase 374 U/L Creatine Kinase MB 4.4 NG/ML Creatine Kinase MB % 1.2 % Troponin I 0.10 NG/ML Total Protein 7.3 GM/DL Albumin 3.0 GM/DL [facility] Medical Decision Making Medical Screen Exam Complete: Yes Emergency Medical Condition: Yes Medical Record Reviewed: Yes Interpretation(s) EKG reveals supraventricular bradycardia with a rate of 59. No visible P waves. QRS 105. Last Impressions Chest X-Ray 05/23/171923 Signed Impressions: Service Date/Time: Thursday, May 23, 2017 19:45 - CONCLUSION: 1. Cardiomegaly. 2. No acute focal pulmonary infiltrate or pulmonary vascular congestion. Migel Doe MD Laboratory Tests Test 05/23/17 05/23/17 19:30 20:40 White Blood Count 9.7 TH/MM3 Red Blood Count 3.82 MIL/MM3 Hemoglobin 12.3 GM/DL Hematocrit 38.0 % Mean Corpuscular Volume 99.6 FL Mean Corpuscular Hemoglobin 32.3 PG Mean Corpuscular Hemoglobin 32.5 % Concent Red Cell Distribution Width 14.5 % Platelet Count 223 TH/MM3 Mean Platelet Volume 9.8 FL Neutrophils (%) (Auto) 71.0 % Lymphocytes (%) (Auto) 18.0 % Monocytes (%) (Auto) 8.8 % Eosinophils (%) (Auto) 1.0 % Basophils (%) (Auto) 1.2 % Neutrophils # (Auto) 6.9 TH/MM3 Lymphocytes # (Auto) 1.8 TH/MM3 Monocytes # (Auto) 0.9 TH/MM3 Eosinophils # (Auto) 0.1 TH/MM3 Basophils # (Auto) 0.1 TH/MM3 CBC Comment DIFF FINAL Differential Comment Prothrombin Time 10.0 SEC Prothromb Time International 0.9 RATIO Ratio Activated Partial 30.7 SEC Thromboplast Time Lactic Acid Level 1.6 mmol/L B-Type Natriuretic Peptide 33 PG/ML Sodium Level 138 MEQ/L Potassium Level 8.0 MEQ/L Chloride Level 117 MEQ/L Carbon Dioxide Level 15.0 MEQ/L Anion Gap 6 MEQ/L Blood Urea Nitrogen 54 MG/DL Creatinine 3.84 MG/DL Estimat Glomerular Filtration 19 ML/MIN Rate Random Glucose 106 MG/DL Calcium Level 8.2 MG/DL Magnesium Level 2.5 MG/DL Total Bilirubin 0.1 MG/DL Aspartate Amino Transf 16 U/L (AST/SGOT) Alanine Aminotransferase 11 U/L (ALT/SGPT) Alkaline Phosphatase 78 U/L Total Creatine Kinase 374 U/L Troponin I 0.10 NG/ML Total Protein 7.3 GM/DL Albumin 3.0 GM/DL Differential Diagnosis Differential diagnosis includes CHF, COPD exacerbation, pneumonia, pulmonary embolism, acute coronary syndrome, pleural effusion, flash pulmonary edema, bronchitis, cardiomyopathy. Narrative Course IV was established, labs are drawn and sent, the patient was placed on cardiac telemetry monitoring and continuous pulse oximetry monitoring. EKG was ordered and interpreted. Chest x-ray was obtained. The patient's O2 sat on room air was 77% and the patient was visibly short of breath, therefore, he is placed on BiPAP 12/5 at 60% with 3 in-line DuoNeb's. The patient was also administered Solu-Medrol 125 mg intravenously and Lasix 40 mg intravenously. Chest x-ray reveals cardiomegaly, no evidence of acute CHF or pulmonary edema. The patient' s symptoms improved on BiPAP. The patient's troponin was elevated 0.10, and creatinine was elevated at 3.84, and potassium is elevated at 8.0. I reviewed the EMR, his past creatinines in the 1.51 and 1.34 with a GFR 56-65, however, GFR now is 19. There was no hemolysis noted. EKG does reveal mildly prolonged QRS of 105 ms with supraventricular bradycardia. Therefore, patient was administered insulin, D50, sodium bicarbonate, Kayexalate, calcium gluconate, and IV fluids. A call was placed to the on-call direct care specialist and the on-call betting agency counter clerk. The patient will be admitted to the intensive care unit. I discussed the patient with the betting agency counter clerk, Dr. Ji, at 10:15 PM who is aware of the patient. Critical Care Narrative Aggregate critical care time was 40 minutes. Time to perform other separately billable procedures was not included in the critical care time. My time did not include minutes spent treating any other patients simultaneously or on activities that did not directly contribute to the patient's treatment. The services I provided to this patient were to treat and/or prevent clinically significant deterioration that could result in: Arrhythmia, hypoxia, anoxia, aspiration, . I provided critical care services requiring my management, as noted below: Chart data review, documentation time, medication orders and management, vital sign assessments/reviewing monitor data, ordering and reviewing lab tests, ordering and interpreting/reviewing x-rays and diagnostic studies, care of the patient and discussion of the patient with the admitting physicians. Physician Communication Physician Communication The on-call direct care specialist was paged for admission. The on-call betting agency counter clerk was also paged. Diagnosis Primary Impression: Hyperkalemia Additional Impressions: Acute renal failure Qualified Code: N17.9 - Acute renal failure, unspecified acute renal failure type Hypoxia COPD (chronic obstructive pulmonary disease) Qualified Code: J44.9 - Chronic obstructive pulmonary disease, unspecified COPD type Admitting Information Admitting Physician Requests: Admit Condition: Serious Adolph Cleveland MD May 23, 2017 19:32
--- NOTE | 2017-05-23 19:55 | RADRPT ---
EXAM DATE/TIME: 05/23/2017 19:45 [facility] COMPARISON: CHEST SINGLE AP, July 22, 2016, 22:28. INDICATIONS : Short of breath. MEDICAL HISTORY : None. SURGICAL HISTORY : None. ENCOUNTER: Initial ACUITY: 1 day PAIN SCORE: 6/10 LOCATION: Bilateral chest FINDINGS: The heart is enlarged. The pulmonary vascular pattern is normal. The lungs are clear. CONCLUSION: 1. Cardiomegaly. 2. No acute focal pulmonary infiltrate or pulmonary vascular congestion. Migel Doe MD on May 23, 2017 at 19:49 Board Certified Radiologist. This report was verified electronically.
[2017-05-23 20:14] LABS: AUTOMATED NEUTROPHIL # 6.9 TH/MM3 (1.8-7.7); BASOPHIL # 0.1 TH/MM3 (0-0.2); BASOPHIL % 1.2 % (0.0-2.0); EOSINOPHIL # 0.1 TH/MM3 (0-0.4); HEMO FLAGS DIFF FINAL; LYMPHOCYTE # 1.8 TH/MM3 (1.0-4.8); MEAN CELL VOLUME 99.6 FL (80.0-100.0); MEAN CORPUSCULAR HEMOGLOBIN 32.3 PG (27.0-34.0); MEAN CORPUSCULAR HGB CONC 32.5 % (32.0-36.0); MONO % 8.8 % (0.0-8.0); PLATELET COUNT 223 TH/MM3 (150-450); RED BLOOD COUNT 3.82 MIL/MM3 (4.50-5.90); RED CELL DISTRIBUTION WIDTH 14.5 % (11.6-17.2); WHITE BLOOD COUNT 9.7 TH/MM3 (4.0-11.0)
[2017-05-23] MEDS: RESP: ALBUTEROL 2.5 MG/IPRATROPIUM 0.5 MG NEB (SCH) INH ×2 (20:18→22:10)
[2017-05-23 20:22] LABS: APTT (PATIENT) 30.7 SEC (24.3-30.1); INTERNATIONAL NORMALIZED RATIO 0.9 RATIO
[2017-05-23 21:20] LABS: ANION GAP 6 MEQ/L (5-15); AST (GOT) 16 U/L (15-37); BLOOD UREA NITROGEN 54 MG/DL (7-18); CHLORIDE 117 MEQ/L (98-107); GLOMERULAR FILTRATION RATE 19 ML/MIN (>89); MAGNESIUM 2.5 MG/DL (1.5-2.5); SODIUM (NA) 138 MEQ/L (136-145)
[2017-05-23 21:24] LABS: ALT (GPT) 11 U/L (12-78)
[2017-05-23 21:27] LABS: ALKALINE PHOSPHATASE 78 U/L (45-117); CREATINE KINASE 374 U/L (39-308); TOTAL BILIRUBIN ADULT 0.1 MG/DL (0.2-1.0)
[2017-05-23] MEDS ORDERED: DEXTROSE 50% IN WATER 50 ML VIAL(D50) IV PUSH ONE (21:30)
[2017-05-23] MEDS ORDERED: SODIUM POLYSTYRENE SULFONATE SUSP 15 GM/60 ML CUP PO ONE (21:30)
[2017-05-23] MEDS ORDERED: SODIUM BICARBONATE 8.4% SOLN 50 MEQ/50 ML VIAL SLOW IVP ONE (21:30)
[2017-05-23] MEDS ORDERED: CALCIUM GLUCONATE 10% 1 GM/10 ML VIAL SLOW IVP ONE (21:30)
[2017-05-23] MEDS ORDERED: SODIUM CHLOR 0.9% 1000 ML INJ 1,000 ML IV ONE (21:30)
[2017-05-23] MEDS ORDERED: RESP: ALBUTEROL CONC 2.5 MG/0.5 ML NEB INH ONE (21:30)
[2017-05-23] MEDS ORDERED: LACTULOSE SYRUP 20 GM/30 ML CUP PO PRN (21:45)
[2017-05-23] MEDS ORDERED: BISACODYL 10 MG SUPP RECTAL PRN (21:45)
[2017-05-23] MEDS ORDERED: CHLORHEXIDINE GLUCONATE 2 % 1 PACK (2 CLOTHS) TOP PRN (21:45)
[2017-05-23] MEDS ORDERED: SENNOSIDES 8.6 MG TAB PO PRN (21:45)
[2017-05-23] MEDS ORDERED: MAGNESIUM HYDROXIDE SUSP 30 ML CUP PO PRN (21:45)
[2017-05-23] MEDS ORDERED: INSULIN HUMAN REGULAR 1,000 UNITS/10 ML VIAL IV PUSH ONE (21:45)
[2017-05-23] MEDS ORDERED: MISCELLANEOUS NURSING INFORMATION XX SCH (21:45)
[2017-05-23] MEDS ORDERED: RESP: ALBUTEROL 2.5 MG/IPRATROPIUM 0.5 MG NEB (PRN) INH (21:45)
[2017-05-23] MEDS ORDERED: ONDANSETRON HCL 4 MG/2 ML VIAL IV PRN (21:45)
[2017-05-23 21:52] LABS: CKMB 4.4 NG/ML (0.5-3.6)
--- NOTE | 2017-05-23 21:56 | HHI.HP ---
[facility] Service Critical Care Medicine Primary Care Physician Jessy Gonzales, TEST PILOT Admission Diagnosis hyperkalemia, acute renal failure, hypoxia, COPD exacerbation Diagnosis: Chief Complaint: SOB Travel History International Travel<30 Days: No Contact w/Intl Traveler <30 Da: No Traveled to Known Affected Are: No History of Present Illness Morbidly obese man with SOB and CKD presents with hypoxemia and K 8.0. Creatinine normally 1.5 range, now > 3. Review of Systems Constitutional: DENIES: Diaphoretic episodes, Fatigue, Fever, Weight gain, Weight loss, Chills, Dizziness, Change in appetite, Night Sweats Endocrine: COMPLAINS OF: Polydipsia Eyes: DENIES: Blurred vision, Diplopia, Eye inflammation, Eye pain, Vision loss , Photosensitivity, Double Vision Ears, nose, mouth, throat: DENIES: Tinnitus, Hearing loss, Vertigo, Nasal discharge, Oral lesions, Throat pain, Hoarseness, Ear Pain, Running Nose, Epistaxis, Sinus Pain, Toothache, Odynophagia Respiratory: COMPLAINS OF: Snoring, Wheezing, Shortness of breath Cardiovascular: COMPLAINS OF: Dyspnea on Exertion Gastrointestinal: DENIES: Abdominal pain, Black stools, Bloody stools, Constipation, Diarrhea, Nausea, Vomiting, Difficulty Swallowing, Anorexia Genitourinary: DENIES: Sexual dysfunction, Urinary frequency, Urinary incontinence, Urgency, Hematuria, Dysuria, Nocturia, Penile Discharge, Testicular Pain, Testicular Swelling Musculoskeletal: DENIES: Joint pain, Muscle aches, Stiffness, Joint Swelling, Back pain, Neck pain ROS Difficulty breathing. Past Family Social History Allergies: Coded Allergies: *MDRO Multi-Drug Resistant Organism (Verified Adverse Reaction, Unknown, ) MRSA (wounds) - 03/20/13 MRSA PCR Screen NEGATIVE - 03/19/16, 03/21/2016 CLEARED PER INFECTION CONTROL Past Medical History Past Medical History Arthritis: Yes Asthma: No Cancer: Yes (PROSTATE 5 YEARS AGO ) Cardiovascular Problems: Yes Chest Pain: Yes Congestive Heart Failure: Yes COPD: Yes Diabetes: Yes Diminished Hearing: No Endocrine: Yes Gastrointestinal Disorders: Yes (MORBID OBESITY) Gout: Yes Genitourinary: Yes Hypertension: Yes Immune Disorder: No Musculoskeletal: Yes Neurologic: No Psychiatric: No Reproductive: No Respiratory: Yes Radiation Therapy: Yes Sleep Apnea: Yes Past Surgical History Other Surgery: Yes (RT HAND) Social History Alcohol Use: No Tobacco Use: Yes (1 PPD) Substance Use: No Allergies-Medications Allergies-Medications (Allergen,Severity, Reaction): Coded Allergies: *MDRO Multi-Drug Resistant Organism (Verified Adverse Reaction, Unknown, ) MRSA (wounds) - 03/20/13 MRSA PCR Screen NEGATIVE - 03/19/16, 03/21/2016 CLEARED PER INFECTION CONTROL Reported Meds & Prescriptions Reported Meds & Active Scripts Active Prednisone 20 Mg Tab 20 Mg PO DAILY Symbicort Inh (Budesonide/Formoterol Fumarate) 160-4.5 Mcg/Act Aero 1 Puff INH Q12HR Reported Amlodipine (Amlodipine Besylate) 10 Mg Tab 10 Mg PO DAILY Ventolin Hfa 18 GM Inh (Albuterol Sulfate) 90 Mcg/Act Aer 2 Puff INH Q6H PRN Toprol XL (Metoprolol Succinate) 100 Mg Tab 100 Mg PO DAILY Lisinopril 20 Mg Tab 20 Mg PO DAILY Omeprazole 40 Mg Cap 40 Mg PO DAILY Metformin (Metformin HCl) 1,000 Mg Tab 1,000 Mg PO BID With meals Lasix (Furosemide) 40 Mg Tab 40 Mg PO DAILY Spironolactone 25 Mg Tab 25 Mg PO DAILY Physical Exam Vital Signs Vital Signs Date Time Temp Pulse Resp B/P Pulse Ox O2 Delivery O2 Flow Rate FiO2 05/23/17 21:00 60 22 158/73 94 BiPAP 05/23/17 20:19 99 25 05/23/17 19:33 98 35 05/23/17 19:33 95 BiPAP 05/23/17 19:27 30 95 Nasal Cannula 2 05/23/17 19:27 94 Nasal Cannula 2 05/23/17 19:20 98.3 89 26 128/70 77 Laboratory Laboratory Tests Test 05/23/17 05/23/17 19:30 20:40 White Blood Count 9.7 Red Blood Count 3.82 Hemoglobin 12.3 Hematocrit 38.0 Mean Corpuscular Volume 99.6 Mean Corpuscular Hemoglobin 32.3 Mean Corpuscular Hemoglobin 32.5 Concent Red Cell Distribution Width 14.5 Platelet Count 223 Mean Platelet Volume 9.8 Neutrophils (%) (Auto) 71.0 Lymphocytes (%) (Auto) 18.0 Monocytes (%) (Auto) 8.8 Eosinophils (%) (Auto) 1.0 Basophils (%) (Auto) 1.2 Neutrophils # (Auto) 6.9 Lymphocytes # (Auto) 1.8 Monocytes # (Auto) 0.9 Eosinophils # (Auto) 0.1 Basophils # (Auto) 0.1 CBC Comment DIFF FINAL Differential Comment Prothrombin Time 10.0 Prothromb Time International 0.9 Ratio Activated Partial 30.7 Thromboplast Time Lactic Acid Level 1.6 B-Type Natriuretic Peptide 33 Sodium Level 138 Potassium Level 8.0 Chloride Level 117 Carbon Dioxide Level 15.0 Anion Gap 6 Blood Urea Nitrogen 54 Creatinine 3.84 Estimat Glomerular Filtration 19 Rate Random Glucose 106 Calcium Level 8.2 Magnesium Level 2.5 Total Bilirubin 0.1 Aspartate Amino Transf 16 (AST/SGOT) Alanine Aminotransferase 11 (ALT/SGPT) Alkaline Phosphatase 78 Total Creatine Kinase 374 Creatine Kinase MB 4.4 Creatine Kinase MB % 1.2 Troponin I 0.10 Total Protein 7.3 Albumin 3.0 Date/Time Procedure Status Source Growth 05/23/17 19:30 Aerobic Blood Culture Received Blood Peripheral Pending 05/23/17 19:30 Anaerobic Blood Culture Received Blood Peripheral Pending Result Diagram: 05/23/17 1930 05/23/172039 Assessment and Plan Assessment and Plan Assessment: 1. Hypoxemic respiratory failure. 2. CKD with CHRISTAL. 3. Hyperkalemia. 4. Morbid obesity. 5. Metabolic Acidosis Plan: 1. Repeat K after interventions. 2. BiPAP NIV. 3. Hold steroids. 4. Bronchodilators. 5. Hydration with bicarb gtt. 6. SSI for euglycemia. 7. Hold oral DM agent. 8. Hold BRANDIE-I Overall impression: Life-threatening hyperkalemia confirmed with repeat. Hypoxemic respiratory failure compounded by morbid obesity and hypoventilation. COPD not exacerbated. Critically ill and requiring emergency correction of electrolytes and respiratory support. Critical Care 44 mins Reinaldo Villavicencio MD May 23, 2017 21:56
[2017-05-23] MEDS: HEPARIN SODIUM - SQ 10,000 UNITS/ML VIAL SQ SCH (22:17)
[2017-05-24] VITALS (14 sets, daily range): BP systolic 123–155; BP diastolic 58–67; PULSE 59–104; RESP 16–28; TEMP 98–98.7; O2SAT 96–100
[2017-05-24] MEDS ORDERED: DEXTROSE 50% IN WATER 50 ML VIAL(D50) IV PRN (01:15)
[2017-05-24] MEDS ORDERED: GLUCAGON 1 MG/ML VIAL OTHER PRN ×3 (01:15→01:30)
[2017-05-24] MEDS ORDERED: DEXTROSE 50% IN WATER 50 ML SYRINGE IV PRN (01:30)
[2017-05-24] MEDS: INSULIN ASPART SUPPLEMENTAL SCALE SQ SCH ×4 (02:06→18:36)
[2017-05-24] MEDS: SODIUM BICARBONATE 8.4% INJ 150 MEQ in WATER STERILE FOR INJ 850 ML IV SCH ×3 (03:03→23:23)
[2017-05-24] MEDS ORDERED: INSULIN HUMAN REGULAR 1,000 UNITS/10 ML VIAL IV PUSH ONE ×3 (03:30→14:00)
[2017-05-24] MEDS ORDERED: SODIUM BICARBONATE 8.4% INJ 50 MEQ/50 ML SYR IV PUSH ONE ×2 (03:30→11:00)
[2017-05-24] MEDS ORDERED: SODIUM POLYSTYRENE SULFONATE SUSP 15 GM/60 ML CUP PO ONE ×3 (03:30→14:00)
[2017-05-24] MEDS ORDERED: DEXTROSE 50% IN WATER 50 ML VIAL(D50) IV PUSH ONE (03:30)
[2017-05-24] MEDS ORDERED: CALCIUM GLUCONATE 10% 1 GM/10 ML VIAL IV PUSH ONE (03:30)
[2017-05-24] MEDS ORDERED: FUROSEMIDE 100 MG/10 ML VIAL IV PUSH ONE (03:30)
[2017-05-24] MEDS: RESP: ALBUTEROL 2.5 MG/IPRATROPIUM 0.5 MG NEB (SCH) INH ×3 (03:40→16:00)
[2017-05-24] MEDS: CHLORHEXIDINE GLUCONATE 2 % 1 PACK (2 CLOTHS) TOP SCH (04:00)
[2017-05-24 04:48] LABS: BICARBONATE 18.1 MEQ/L (21.0-32.0)
[2017-05-24 04:50] LABS: POTASSIUM 7.4 MEQ/L (3.5-5.1)
[2017-05-24 06:06] LABS: BLOOD, URINE NEG (NEG); GLUCOSE,URINE NEG (NEG); HYALINE CAST, URINE 5 /lpf (RARE); KETONE, URINE NEG (NEG); MUCUS URINE FEW /lpf (OCC); NITRITE,URINE NEG (NEG); URINE COLOR LIGHT-YELLOW (YELLW/STRAW)
[2017-05-24 06:07] LABS: COMMENT (UR) CATH-CULT NOT IND; CULTURE IF INDICATED CATH CULTURE NOT IND
[2017-05-24] MEDS ORDERED: SODIUM POLYSTYRENE SULFONATE SUSP 15 GM/60 ML CUP PO STA (08:15)
[2017-05-24] MEDS: HEPARIN SODIUM - SQ 10,000 UNITS/ML VIAL SQ SCH ×2 (08:57→23:23)
[2017-05-24] MEDS: PANTOPRAZOLE SOD 40 MG DELAYED RELEASE TAB PO SCH (08:57)
[2017-05-24] MEDS: DOCUSATE SODIUM 50 MG/SENNA 8.6 MG TAB PO SCH ×2 (08:58→21:00)
--- NOTE | 2017-05-24 09:26 | HHI.CCPN ---
Subjective Remarks/Hospital Course Morbidly obese man with SOB and CKD presents with hypoxemia and K 8.0. Creatinine normally 1.5 range, now > 3. 05/24 Objective Vital Signs Date Time Temp Pulse Resp B/P Pulse Ox O2 Delivery O2 Flow Rate FiO2 05/24/17 08:00 86 05/24/17 08:00 98.0 28 147/65 96 05/24/17 07:42 Nasal Cannula 2.00 05/23/17 23:04 25 Result Diagram: 05/23/17 1930 05/24/17 0350 A/P Assessment and Plan Assessment: 1. Hypoxemic respiratory failure. 2. CKD with CHRISTAL. 3. Hyperkalemia. 4. Morbid obesity. 5. Metabolic Acidosis Plan: 1. Repeat K after interventions. 2. BiPAP NIV. 3. Hold steroids. 4. Bronchodilators. 5. Hydration with bicarb gtt. 6. SSI for euglycemia. 7. Hold oral DM agent. 8. Hold BRANDIE-I Overall impression: Life-threatening hyperkalemia confirmed with repeat. Hypoxemic respiratory failure compounded by morbid obesity and hypoventilation. COPD not exacerbated. Critically ill and requiring emergency correction of electrolytes and respiratory support. Critical Care 44 mins Goldy Brown MD May 24, 2017 09:26
--- NOTE | 2017-05-24 10:13 | HHI.CCPN ---
Subjective Remarks/Hospital Course Morbidly obese man with SOB and CKD presents with hypoxemia and K 8.0. Creatinine normally 1.5 range, now > 3. 05/24 Patient is on 2L oxygen with good sats. K level 7.4 at 0350 given Bicarb, Kayexalate, IV insulin, D50, Lasix and Calcium repeat K is pending On Bicarb drip. Objective Vital Signs Date Time Temp Pulse Resp B/P Pulse Ox O2 Delivery O2 Flow Rate FiO2 05/24/17 08:00 86 05/24/17 08:00 98.0 28 147/65 96 05/24/17 07:42 Nasal Cannula 2.00 05/23/17 23:04 25 Result Diagram: 05/23/17 1930 05/24/17 0350 Other Results Laboratory Tests Test 05/23/17 05/23/17 05/23/17 05/24/17 19:30 20:40 23:25 00:45 White Blood Count 9.7 TH/MM3 Red Blood Count 3.82 MIL/MM3 Hemoglobin 12.3 GM/DL Hematocrit 38.0 % Mean Corpuscular Volume 99.6 FL Mean Corpuscular Hemoglobin 32.3 PG Mean Corpuscular Hemoglobin 32.5 % Concent Red Cell Distribution Width 14.5 % Platelet Count 223 TH/MM3 Mean Platelet Volume 9.8 FL Neutrophils (%) (Auto) 71.0 % Lymphocytes (%) (Auto) 18.0 % Monocytes (%) (Auto) 8.8 % Eosinophils (%) (Auto) 1.0 % Basophils (%) (Auto) 1.2 % Neutrophils # (Auto) 6.9 TH/MM3 Lymphocytes # (Auto) 1.8 TH/MM3 Monocytes # (Auto) 0.9 TH/MM3 Eosinophils # (Auto) 0.1 TH/MM3 Basophils # (Auto) 0.1 TH/MM3 CBC Comment DIFF FINAL Differential Comment Prothrombin Time 10.0 SEC Prothromb Time International 0.9 RATIO Ratio Activated Partial 30.7 SEC Thromboplast Time Lactic Acid Level 1.6 mmol/L B-Type Natriuretic Peptide 33 PG/ML Sodium Level 138 MEQ/L Potassium Level 8.0 MEQ/L Chloride Level 117 MEQ/L Carbon Dioxide Level 15.0 MEQ/L Anion Gap 6 MEQ/L Blood Urea Nitrogen 54 MG/DL Creatinine 3.84 MG/DL Estimat Glomerular Filtration 19 ML/MIN Rate Random Glucose 106 MG/DL Calcium Level 8.2 MG/DL Magnesium Level 2.5 MG/DL Total Bilirubin 0.1 MG/DL Aspartate Amino Transf 16 U/L (AST/SGOT) Alanine Aminotransferase 11 U/L (ALT/SGPT) Alkaline Phosphatase 78 U/L Total Creatine Kinase 374 U/L Creatine Kinase MB 4.4 NG/ML Creatine Kinase MB % 1.2 % Troponin I 0.10 NG/ML Total Protein 7.3 GM/DL Albumin 3.0 GM/DL Nasal Screen MRSA (PCR) MRSA NOT DETECTED Urine Color LIGHT-YELLOW Urine Turbidity CLEAR Urine pH 5.0 Urine Specific [place] 1.011 Urine Protein TRACE mg/dL Urine Glucose (UA) NEG mg/dL Urine Ketones NEG mg/dL Urine Occult Blood NEG Urine Nitrite NEG Urine Bilirubin NEG Urine Urobilinogen LESS THAN 2.0 MG/DL Urine Leukocyte Esterase NEG Urine RBC 3 /hpf Urine WBC LESS THAN 1 /hpf Urine Bacteria /hpf Urine Hyaline Casts 5 /lpf Urine Mucus FEW /lpf Microscopic Urinalysis Comment CATH-CULT NOT IND Test 05/24/17 05/24/17 01:39 03:50 Potassium Level 7.6 MEQ/L 7.4 MEQ/L Sodium Level 142 MEQ/L Chloride Level 117 MEQ/L Carbon Dioxide Level 18.1 MEQ/L Anion Gap 7 MEQ/L Blood Urea Nitrogen 52 MG/DL Creatinine 3.49 MG/DL Estimat Glomerular Filtration 21 ML/MIN Rate Random Glucose 197 MG/DL Calcium Level 8.5 MG/DL Imaging Last Impressions Chest X-Ray 05/23/171923 Signed Impressions: Service Date/Time: Thursday, May 23, 2017 19:45 - CONCLUSION: 1. Cardiomegaly. 2. No acute focal pulmonary infiltrate or pulmonary vascular congestion. Migel Doe MD Objective Remarks GENERAL: Patient is 66 yo lying in bed in NAD SKIN: Warm and dry. HEAD: Normocephalic. EYES: No scleral icterus. No injection or drainage. NECK: Supple, trachea midline. No JVD or lymphadenopathy. CARDIOVASCULAR: Regular rate and rhythm without murmurs, gallops, or rubs. RESPIRATORY: Breath sounds equal bilaterally. No accessory muscle use. GASTROINTESTINAL: Abdomen soft, non-tender, nondistended. MUSCULOSKELETAL: No cyanosis,++ edema. BACK: Nontender without obvious deformity. No CVA tenderness. A/P Assessment and Plan Assessment: 1)Resp Infuss 2)CKD with CHRISTAL. 3) Hyperkalemia. 4) Morbid obesity. 5)Hyperglycemia 6)HTN Plan: Neuro: Awake and alert, avoid sedatives Pulm: Continue with oxygen keep sat >92% Bronchodilators, NIPPV PRN for resp distress CV: Monitor HR and BP keep MAP>65mmHg. On Norvasc 10mg daily : Monitor renal function, I/O's, avoid nephrotoxins. Treated for hyperkalemia with bicarb, IV insulin, D50, Ca, Kayexalate. Follow up on repeat BMP. If K remains elevated then might need HD. I spoke to Dr. Ji re K 7.0 and recommended to treat it with meds and recheck. He is holding off on HD for now since K is slowing trending down and patient has good urine output. Continue with SW+3amps bicarb @75ml/hr, Renal is consulted- Dr. Ji. Check renal US GI: Start PO diet ID: Monitor for signs of infections ( Fever, WBC) panculture if spikes fever CXR: No acute infiltrates Heme: Monitor CBC Endo: SSI with accuchecks GI prophylaxis- On Protonix 40mg daily DVT prophylaxis- On Heparin SQ Level 3 Goldy Brown MD May 24, 2017 10:13
[2017-05-24 10:16] LABS: BICARBONATE 19.6 MEQ/L (21.0-32.0)
[2017-05-24] MEDS ORDERED: DEXTROSE 50% IN WATER 50 ML SYRINGE IV ONE ×2 (10:30→14:00)
[2017-05-24 11:12] LABS: AUTOMATED NEUTROPHIL # 6.8 TH/MM3 (1.8-7.7); BASOPHIL % 0.2 % (0.0-2.0); HEMO FLAGS DIFF FINAL; LYMPHOCYTE # 0.8 TH/MM3 (1.0-4.8); MEAN CELL VOLUME 96.6 FL (80.0-100.0); MEAN CORPUSCULAR HEMOGLOBIN 31.3 PG (27.0-34.0); MEAN CORPUSCULAR HGB CONC 32.4 % (32.0-36.0); MONO % 2.3 % (0.0-8.0); NEUT % 87.5 % (16.0-70.0); PLATELET COUNT 178 TH/MM3 (150-450); RED BLOOD COUNT 3.52 MIL/MM3 (4.50-5.90); RED CELL DISTRIBUTION WIDTH 14.2 % (11.6-17.2); WHITE BLOOD COUNT 7.7 TH/MM3 (4.0-11.0)
[2017-05-24] MEDS: RESP: ALBUTEROL 1.25 MG/3 ML NEB (SCH) NEB ×4 (12:00→23:35)
[2017-05-24] MEDS ORDERED: CALCIUM GLUCONATE INJ 1 GM in SODIUM CHLORIDE 0.9% INJ 100 ML IV ONE (12:00)
--- NOTE | 2017-05-24 12:09 | EKG ---
Date Performed: 05/23/2017 Time Performed: 19:31:01 PTAGE: 66 years EKG: SUPRAVENTRICULAR BRADYCARDIA MARKED LEFT AXIS DEVIATION POSSIBLE ANTERIOR MYOCARDIAL INFARC TION Since previous tracing, no significant change noted ABNORMAL ECG PREVIOUS TRACING : 03/18/2017 15.18 DOCTOR: Ji Kelley Interpretating Date/Time 05/24/2017 12:08:24
--- NOTE | 2017-05-24 15:36 | PD.CONS ---
HPI Consult Requested By Reason for Consult Acute on chronic renal sufficiency. Hyperkalemia. Primary Care Physician JENNYFER Cummings History of Present Illness This patient is a 66-year-old male who is a very poor historian currently. 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 Review of Systems ROS Limitations: Clinical Condition Constitutional: COMPLAINS OF: Fatigue, DENIES: Diaphoretic episodes, Fever, Weight gain, Weight loss, Chills, Dizziness, Change in appetite, Night Sweats Cardiovascular: COMPLAINS OF: Dyspnea on Exertion, Lower Extremity Edema, DENIES: Chest pain, Palpitations, Syncope, PND, Orthopnea, Claudication Gastrointestinal: DENIES: Abdominal pain, Black stools, Bloody stools, Constipation, Diarrhea, Nausea, Vomiting, Difficulty Swallowing, Anorexia Musculoskeletal: COMPLAINS OF: Joint pain, DENIES: Muscle aches, Stiffness, Joint Swelling, Back pain, Neck pain Past Family Social History Allergies: Coded Allergies: *MDRO Multi-Drug Resistant Organism (Verified Adverse Reaction, Unknown, ) MRSA (wounds) - 03/20/13 MRSA PCR Screen NEGATIVE - 03/19/16, 03/21/2016 CLEARED PER INFECTION CONTROL Past Medical History Limited history of L from patient. Hypertension COPD Diabetes mellitus CHF Anemia Chronic kidney disease apparently with baseline creatinine of about 1.5. Past Surgical History As per records. Reported Medications Current Medications Sodium Chloride (NS Flush) 2 ml UNSCH PRN IVF FLUSH AFTER USING IV ACCESS Last administered on 05/23/17 19:43; Start 05/23/17 at 19:30 Furosemide (Lasix Inj) 40 mg ONCE ONCE IVP Last administered on 05/23/17 19: 30; Start 05/23/17 at 19:30; Stop 05/23/17 at 19:31; Status DC Methylprednisolone Sodium Succinate (SoluMEDROL INJ) 125 mg ONCE ONCE IVP Last administered on 05/23/17 19:30; Start 05/23/17 at 19:30; Stop 05/23/17 at 19:31; Status DC Albuterol/ Ipratropium (Duoneb Neb) 1 ampule Q15M INH Last administered on 05/23 20:18; Start 05/23/17 at 19:30; Stop 05/23/17 at 20:01; Status DC Aspirin (Aspirin Chew) 162 mg ONCE ONCE CHEW Last administered on 05/23/17 19 :30; Start 05/23/17 at 19:30; Stop 05/23/17 at 19:31; Status DC Calcium Gluconate (Calcium Gluconate Inj) 1 gm ONCE ONCE SLOW IVP Last administered on 05/23/17 21:52; Start 05/23/17 at 21:30; Stop 05/23/17 at 21:31 ; Status DC Insulin Human Regular (NovoLIN R INJ) 10 units ONCE ONCE IV PUSH Last administered on 05/23/17 22:12; Start 05/23/17 at 21:45; Stop 05/23/17 at 21:46 ; Status DC Dextrose (D50w (Vial) Inj) 50 ml ONCE ONCE IV PUSH Last administered on 22:11; Start 05/23/17 at 21:30; Stop 05/23/17 at 21:31; Status DC Sodium Bicarbonate (Sodium Bicarbonate 8.4% Inj) 150 meq ONCE ONCE SLOW IVP Last administered on 05/23/17 22:13; Start 05/23/17 at 21:30; Stop 05/23/17 at 21:31; Status DC Albuterol Sulfate (Albuterol Concentrated Neb) 10 mg ONCE ONCE INH Last administered on 05/23/17 22:11; Start 05/23/17 at 21:30; Stop 05/23/17 at 21:31 ; Status DC Sodium Polystyrene Sulfonate 15 gm 15 gm ONCE ONCE PO Last administered on 22:13; Start 05/23/17 at 21:30; Stop 05/23/17 at 21:31; Status DC Sodium Chloride (NS 1000 ml Inj) 1,000 ml @ 999 mls/hr BOLUS ONCE IV Last administered on 05/23/17 21:52; Start 05/23/17 at 21:30; Stop 05/23/17 at 22:30 ; Status DC Acetaminophen (Tylenol) 650 mg Q6H PRN PO PAIN 1-10 AND/OR FEVER >101F; Start 05/23/17 at 21:45 Pantoprazole Sodium (Protonix) 40 mg DAILY PO Last administered on 05/24/17 08 :57; Start 05/24/17 at 09:00 Ondansetron HCl (Zofran Inj) 4 mg Q6H PRN IV NAUSEA OR VOMITING; Start at 21:45 Albuterol/ Ipratropium (Duoneb Neb) 1 ampule Q6HR NEB INH Last administered on 05/24/17 08:43; Start 05/23/17 at 22:00 Albuterol/ Ipratropium (Duoneb Neb) 1 ampule Q2HR NEB PRN INH WHEEZING; Start 05/23/17 at 21:45 Heparin Sodium (Porcine) (Heparin Inj) 5,000 units Q12H SQ Last administered on 05/24/17 08:57; Start 05/23/17 at 22:00 Miscellaneous Information 1 Q361D XX ; Start 05/23/17 at 21:45 Chlorhexidine Gluconate (Chlorhexidine 2% Cloth) 3 pack Taper DAILY@04 TOP Last administered on 05/24/17 04:00; Start 05/24/17 at 04:00; Stop 05/20/18 at 03:59 Chlorhexidine Gluconate (Chlorhexidine 2% Cloth) 3 pack UNSCH PRN TOP HYGIENIC CARE; Start 05/23/17 at 21:45 Senna/Docusate Sodium (Carmelita-Colace) 1 tab BID PO ; Start 05/24/17 at 09:00 Magnesium Hydroxide (Milk Of Magnesia Liq) 30 ml Q12H PRN PO MILD - MODERATE CONSTIPATION; Start 05/23/17 at 21:45; Stop 05/24/17 at 10:11; Status DC Sennosides (Senokot) 17.2 mg Q12H PRN PO MODERATE - SEVERE CONSTIPATION; Start 05/23/17 at 21:45 Bisacodyl (Dulcolax Supp) 10 mg DAILY PRN RECTAL SEVERE CONSITIPATION; Start at 21:45 Lactulose (Lactulose Liq) 30 ml DAILY PRN PO SEVERE CONSITIPATION; Start at 21:45 Amlodipine Besylate (Norvasc) 10 mg DAILY PO Last administered on 05/24/17 08: 57; Start 05/24/17 at 09:00 Dextrose (D50w (Vial) Inj) 50 ml UNSCH PRN IV HYPOGLYCEMIA-SEE COMMENTS; Start 05/24/17 at 01:15; Stop 05/24/17 at 01:23; Status DC Glucagon (Glucagon Inj) 1 mg UNSCH PRN OTHER HYPOGLYCEMIA-SEE COMMENTS; Start 05/24/17 at 01:15; Stop 05/24/17 at 01:23; Status DC Dextrose (D50w (Vial) Inj) 50 ml UNSCH PRN IV HYPOGLYCEMIA-SEE COMMENTS; Start 05/24/17 at 01:15; Stop 05/24/17 at 01:18; Status DC Glucagon (Glucagon Inj) 1 mg UNSCH PRN OTHER HYPOGLYCEMIA-SEE COMMENTS; Start 05/24/17 at 01:15; Stop 05/24/17 at 01:18; Status DC Insulin Aspart (NovoLOG SUPPLEMENTAL SCALE) 1 Q6H SQ Last administered on 02:06; Start 05/24/17 at 01:30 Dextrose (D50w (Syr) Inj) 50 ml UNSCH PRN IV HYPOGLYCEMIA-SEE COMMENTS; Start 05/24/17 at 01:30 Glucagon 1 mg 1 mg UNSCH PRN OTHER HYPOGLYCEMIA-SEE COMMENTS; Start 05/24/17 at 01:30 Sodium Bicarbonate/ Sterile Water (Sodium Bicarbonate 8.4% Inj/Sterile Water For Inj) 1,000 ml @ 125 mls/hr Q8H IV Last administered on 05/24/17 03:03; Start 05/24/17 at 01:30 Sodium Bicarbonate (Sodium Bicarbonate 8.4% Inj) 100 meq ONCE ONCE IV PUSH Last administered on 05/24/17 03:30; Start 05/24/17 at 03:30; Stop 05/24/17 at 03:31; Status DC Dextrose (D50w (Vial) Inj) 25 ml ONCE ONCE IV PUSH Last administered on 04:29; Start 05/24/17 at 03:30; Stop 05/24/17 at 03:31; Status DC Insulin Human Regular (NovoLIN R INJ) 10 units ONCE ONCE IV PUSH Last administered on 05/24/17 04:29; Start 05/24/17 at 03:30; Stop 05/24/17 at 03:31 ; Status DC Calcium Gluconate (Calcium Gluconate Inj) 1 gm ONCE ONCE IV PUSH Last administered on 05/24/17 04:23; Start 05/24/17 at 03:30; Stop 05/24/17 at 03:31 ; Status DC Sodium Polystyrene Sulfonate (Kayexalate Liq) 15 gm ONCE ONCE PO Last administered on 05/24/17 03:30; Start 05/24/17 at 03:30; Stop 05/24/17 at 03:31 ; Status DC Furosemide (Lasix Inj) 80 mg ONCE ONCE IV PUSH Last administered on 05/24/17 04:23; Start 05/24/17 at 03:30; Stop 05/24/17 at 03:31; Status DC Sodium Polystyrene Sulfonate (Kayexalate Liq) 15 gm ONCE STAT PO Last administered on 05/24/17 08:15; Start 05/24/17 at 08:15; Stop 05/24/17 at 08:21 ; Status DC Insulin Human Regular (NovoLIN R INJ) 10 units ONCE ONCE IV PUSH Last administered on 05/24/17 11:00; Start 05/24/17 at 11:00; Stop 05/24/17 at 11:01 ; Status DC Dextrose 50 ml 50 ml ONCE ONCE IV Last administered on 05/24/17 10:30; Start 05/24/17 at 10:30; Stop 05/24/17 at 10:39; Status DC Calcium Gluconate/ Sodium Chloride (Calcium Gluconate Inj/NS Inj) 110 ml @ 110 mls/hr ONCE ONCE IV Last administered on 05/24/17 15:22; Start 05/24/17 at 12 :00; Stop 05/24/17 at 12:59; Status DC Sodium Polystyrene Sulfonate (Kayexalate Liq) 15 gm ONCE ONCE PO Last administered on 05/24/17 11:14; Start 05/24/17 at 11:00; Stop 05/24/17 at 11:01 ; Status DC Sodium Bicarbonate (Sodium Bicarbonate 8.4% Inj) 50 meq ONCE ONCE IV PUSH Last administered on 05/24/17 11:00; Start 05/24/17 at 11:00; Stop 05/24/17 at 11:01; Status DC Albuterol Sulfate (Albuterol Neb) 1.25 mg Q4HR NEB NEB ; Start 05/24/17 at 12: 00 Insulin Human Regular (NovoLIN R INJ) 10 units ONCE ONCE IV PUSH Last administered on 05/24/17 14:00; Start 05/24/17 at 14:00; Stop 05/24/17 at 14:05 ; Status DC Dextrose (D50w (Syr) Inj) 50 ml ONCE ONCE IV Last administered on 05/24/17 14 :00; Start 05/24/17 at 14:00; Stop 05/24/17 at 14:05; Status DC Sodium Polystyrene Sulfonate (Kayexalate Liq) 30 gm ONCE ONCE PO Last administered on 05/24/17 15:21; Start 05/24/17 at 14:00; Stop 05/24/17 at 14:05 ; Status DC Active Ordered Medications Current Medications Sodium Chloride (NS Flush) 2 ml UNSCH PRN IVF FLUSH AFTER USING IV ACCESS Last administered on 05/23/17 19:43; Start 05/23/17 at 19:30 Furosemide (Lasix Inj) 40 mg ONCE ONCE IVP Last administered on 05/23/17 19: 30; Start 05/23/17 at 19:30; Stop 05/23/17 at 19:31; Status DC Methylprednisolone Sodium Succinate (SoluMEDROL INJ) 125 mg ONCE ONCE IVP Last administered on 05/23/17 19:30; Start 05/23/17 at 19:30; Stop 05/23/17 at 19:31; Status DC Albuterol/ Ipratropium (Duoneb Neb) 1 ampule Q15M INH Last administered on 05/23 20:18; Start 05/23/17 at 19:30; Stop 05/23/17 at 20:01; Status DC Aspirin (Aspirin Chew) 162 mg ONCE ONCE CHEW Last administered on 05/23/17 19 :30; Start 05/23/17 at 19:30; Stop 05/23/17 at 19:31; Status DC Calcium Gluconate (Calcium Gluconate Inj) 1 gm ONCE ONCE SLOW IVP Last administered on 05/23/17 21:52; Start 05/23/17 at 21:30; Stop 05/23/17 at 21:31 ; Status DC Insulin Human Regular (NovoLIN R INJ) 10 units ONCE ONCE IV PUSH Last administered on 05/23/17 22:12; Start 05/23/17 at 21:45; Stop 05/23/17 at 21:46 ; Status DC Dextrose (D50w (Vial) Inj) 50 ml ONCE ONCE IV PUSH Last administered on 22:11; Start 05/23/17 at 21:30; Stop 05/23/17 at 21:31; Status DC Sodium Bicarbonate (Sodium Bicarbonate 8.4% Inj) 150 meq ONCE ONCE SLOW IVP Last administered on 05/23/17 22:13; Start 05/23/17 at 21:30; Stop 05/23/17 at 21:31; Status DC Albuterol Sulfate (Albuterol Concentrated Neb) 10 mg ONCE ONCE INH Last administered on 05/23/17 22:11; Start 05/23/17 at 21:30; Stop 05/23/17 at 21:31 ; Status DC Sodium Polystyrene Sulfonate 15 gm 15 gm ONCE ONCE PO Last administered on 22:13; Start 05/23/17 at 21:30; Stop 05/23/17 at 21:31; Status DC Sodium Chloride (NS 1000 ml Inj) 1,000 ml @ 999 mls/hr BOLUS ONCE IV Last administered on 05/23/17 21:52; Start 05/23/17 at 21:30; Stop 05/23/17 at 22:30 ; Status DC Acetaminophen (Tylenol) 650 mg Q6H PRN PO PAIN 1-10 AND/OR FEVER >101F; Start 05/23/17 at 21:45 Pantoprazole Sodium (Protonix) 40 mg DAILY PO Last administered on 05/24/17 08 :57; Start 05/24/17 at 09:00 Ondansetron HCl (Zofran Inj) 4 mg Q6H PRN IV NAUSEA OR VOMITING; Start at 21:45 Albuterol/ Ipratropium (Duoneb Neb) 1 ampule Q6HR NEB INH Last administered on 05/24/17 08:43; Start 05/23/17 at 22:00 Albuterol/ Ipratropium (Duoneb Neb) 1 ampule Q2HR NEB PRN INH WHEEZING; Start 05/23/17 at 21:45 Heparin Sodium (Porcine) (Heparin Inj) 5,000 units Q12H SQ Last administered on 05/24/17 08:57; Start 05/23/17 at 22:00 Miscellaneous Information 1 Q361D XX ; Start 05/23/17 at 21:45 Chlorhexidine Gluconate (Chlorhexidine 2% Cloth) 3 pack Taper DAILY@04 TOP Last administered on 05/24/17 04:00; Start 05/24/17 at 04:00; Stop 05/20/18 at 03:59 Chlorhexidine Gluconate (Chlorhexidine 2% Cloth) 3 pack UNSCH PRN TOP HYGIENIC CARE; Start 05/23/17 at 21:45 Senna/Docusate Sodium (Carmelita-Colace) 1 tab BID PO ; Start 05/24/17 at 09:00 Magnesium Hydroxide (Milk Of Magnesia Liq) 30 ml Q12H PRN PO MILD - MODERATE CONSTIPATION; Start 05/23/17 at 21:45; Stop 05/24/17 at 10:11; Status DC Sennosides (Senokot) 17.2 mg Q12H PRN PO MODERATE - SEVERE CONSTIPATION; Start 05/23/17 at 21:45 Bisacodyl (Dulcolax Supp) 10 mg DAILY PRN RECTAL SEVERE CONSITIPATION; Start at 21:45 Lactulose (Lactulose Liq) 30 ml DAILY PRN PO SEVERE CONSITIPATION; Start at 21:45 Amlodipine Besylate (Norvasc) 10 mg DAILY PO Last administered on 05/24/17 08: 57; Start 05/24/17 at 09:00 Dextrose (D50w (Vial) Inj) 50 ml UNSCH PRN IV HYPOGLYCEMIA-SEE COMMENTS; Start 05/24/17 at 01:15; Stop 05/24/17 at 01:23; Status DC Glucagon (Glucagon Inj) 1 mg UNSCH PRN OTHER HYPOGLYCEMIA-SEE COMMENTS; Start 05/24/17 at 01:15; Stop 05/24/17 at 01:23; Status DC Dextrose (D50w (Vial) Inj) 50 ml UNSCH PRN IV HYPOGLYCEMIA-SEE COMMENTS; Start 05/24/17 at 01:15; Stop 05/24/17 at 01:18; Status DC Glucagon (Glucagon Inj) 1 mg UNSCH PRN OTHER HYPOGLYCEMIA-SEE COMMENTS; Start 05/24/17 at 01:15; Stop 05/24/17 at 01:18; Status DC Insulin Aspart (NovoLOG SUPPLEMENTAL SCALE) 1 Q6H SQ Last administered on 02:06; Start 05/24/17 at 01:30 Dextrose (D50w (Syr) Inj) 50 ml UNSCH PRN IV HYPOGLYCEMIA-SEE COMMENTS; Start 05/24/17 at 01:30 Glucagon 1 mg 1 mg UNSCH PRN OTHER HYPOGLYCEMIA-SEE COMMENTS; Start 05/24/17 at 01:30 Sodium Bicarbonate/ Sterile Water (Sodium Bicarbonate 8.4% Inj/Sterile Water For Inj) 1,000 ml @ 125 mls/hr Q8H IV Last administered on 05/24/17 03:03; Start 05/24/17 at 01:30 Sodium Bicarbonate (Sodium Bicarbonate 8.4% Inj) 100 meq ONCE ONCE IV PUSH Last administered on 05/24/17 03:30; Start 05/24/17 at 03:30; Stop 05/24/17 at 03:31; Status DC Dextrose (D50w (Vial) Inj) 25 ml ONCE ONCE IV PUSH Last administered on 04:29; Start 05/24/17 at 03:30; Stop 05/24/17 at 03:31; Status DC Insulin Human Regular (NovoLIN R INJ) 10 units ONCE ONCE IV PUSH Last administered on 05/24/17 04:29; Start 05/24/17 at 03:30; Stop 05/24/17 at 03:31 ; Status DC Calcium Gluconate (Calcium Gluconate Inj) 1 gm ONCE ONCE IV PUSH Last administered on 05/24/17 04:23; Start 05/24/17 at 03:30; Stop 05/24/17 at 03:31 ; Status DC Sodium Polystyrene Sulfonate (Kayexalate Liq) 15 gm ONCE ONCE PO Last administered on 05/24/17 03:30; Start 05/24/17 at 03:30; Stop 05/24/17 at 03:31 ; Status DC Furosemide (Lasix Inj) 80 mg ONCE ONCE IV PUSH Last administered on 05/24/17 04:23; Start 05/24/17 at 03:30; Stop 05/24/17 at 03:31; Status DC Sodium Polystyrene Sulfonate (Kayexalate Liq) 15 gm ONCE STAT PO Last administered on 05/24/17 08:15; Start 05/24/17 at 08:15; Stop 05/24/17 at 08:21 ; Status DC Insulin Human Regular (NovoLIN R INJ) 10 units ONCE ONCE IV PUSH Last administered on 05/24/17 11:00; Start 05/24/17 at 11:00; Stop 05/24/17 at 11:01 ; Status DC Dextrose 50 ml 50 ml ONCE ONCE IV Last administered on 05/24/17 10:30; Start 05/24/17 at 10:30; Stop 05/24/17 at 10:39; Status DC Calcium Gluconate/ Sodium Chloride (Calcium Gluconate Inj/NS Inj) 110 ml @ 110 mls/hr ONCE ONCE IV Last administered on 05/24/17 15:22; Start 05/24/17 at 12 :00; Stop 05/24/17 at 12:59; Status DC Sodium Polystyrene Sulfonate (Kayexalate Liq) 15 gm ONCE ONCE PO Last administered on 05/24/17 11:14; Start 05/24/17 at 11:00; Stop 05/24/17 at 11:01 ; Status DC Sodium Bicarbonate (Sodium Bicarbonate 8.4% Inj) 50 meq ONCE ONCE IV PUSH Last administered on 05/24/17 11:00; Start 05/24/17 at 11:00; Stop 05/24/17 at 11:01; Status DC Albuterol Sulfate (Albuterol Neb) 1.25 mg Q4HR NEB NEB ; Start 05/24/17 at 12: 00 Insulin Human Regular (NovoLIN R INJ) 10 units ONCE ONCE IV PUSH Last administered on 05/24/17 14:00; Start 05/24/17 at 14:00; Stop 05/24/17 at 14:05 ; Status DC Dextrose (D50w (Syr) Inj) 50 ml ONCE ONCE IV Last administered on 05/24/17 14 :00; Start 05/24/17 at 14:00; Stop 05/24/17 at 14:05; Status DC Sodium Polystyrene Sulfonate (Kayexalate Liq) 30 gm ONCE ONCE PO Last administered on 05/24/17 15:21; Start 05/24/17 at 14:00; Stop 05/24/17 at 14:05 ; Status DC Family History Not reliably obtainable from patient at this time. Denies a family history of renal disease. Physical Exam Vital Signs Vital Signs Date Time Temp Pulse Resp B/P Pulse Ox O2 Delivery O2 Flow Rate FiO2 05/24/17 14:00 75 05/24/17 12:00 98.1 91 24 137/64 97 05/24/17 12:00 76 05/24/17 10:00 59 05/24/17 08:00 86 05/24/17 08:00 98.0 88 28 147/65 96 05/24/17 07:42 97 Nasal Cannula 2.00 05/24/17 06:00 100 05/24/17 04:00 89 05/24/17 04:00 98.1 89 22 155/63 96 05/24/17 01:24 98 2.00 05/24/17 00:00 97 Nasal Cannula 3.00 05/24/17 00:00 104 05/23/17 23:28 99.6 99 20 147/70 98 05/23/17 23:04 100 25 05/23/17 22:45 98 Nasal Cannula 3.00 05/23/17 22:00 58 22 152/70 96 BiPAP 05/23/17 21:00 60 22 158/73 94 BiPAP 05/23/17 20:19 99 25 05/23/17 19:33 98 35 05/23/17 19:33 95 BiPAP 05/23/17 19:27 30 95 Nasal Cannula 2 05/23/17 19:27 94 Nasal Cannula 2 05/23/17 19:20 98.3 89 26 128/70 77 Laboratory Laboratory Tests Test 05/23/17 05/23/17 05/23/17 05/24/17 19:30 20:40 23:25 00:45 White Blood Count 9.7 Red Blood Count 3.82 Hemoglobin 12.3 Hematocrit 38.0 Mean Corpuscular Volume 99.6 Mean Corpuscular Hemoglobin 32.3 Mean Corpuscular Hemoglobin 32.5 Concent Red Cell Distribution Width 14.5 Platelet Count 223 Mean Platelet Volume 9.8 Neutrophils (%) (Auto) 71.0 Lymphocytes (%) (Auto) 18.0 Monocytes (%) (Auto) 8.8 Eosinophils (%) (Auto) 1.0 Basophils (%) (Auto) 1.2 Neutrophils # (Auto) 6.9 Lymphocytes # (Auto) 1.8 Monocytes # (Auto) 0.9 Eosinophils # (Auto) 0.1 Basophils # (Auto) 0.1 CBC Comment DIFF FINAL Differential Comment Prothrombin Time 10.0 Prothromb Time International 0.9 Ratio Activated Partial 30.7 Thromboplast Time Lactic Acid Level 1.6 B-Type Natriuretic Peptide 33 Sodium Level 138 Potassium Level 8.0 Chloride Level 117 Carbon Dioxide Level 15.0 Anion Gap 6 Blood Urea Nitrogen 54 Creatinine 3.84 Estimat Glomerular Filtration 19 Rate Random Glucose 106 Calcium Level 8.2 Magnesium Level 2.5 Total Bilirubin 0.1 Aspartate Amino Transf 16 (AST/SGOT) Alanine Aminotransferase 11 (ALT/SGPT) Alkaline Phosphatase 78 Total Creatine Kinase 374 Creatine Kinase MB 4.4 Creatine Kinase MB % 1.2 Troponin I 0.10 Total Protein 7.3 Albumin 3.0 Nasal Screen MRSA (PCR) MRSA NOT DETECTED Urine Color LIGHT-YELLOW Urine Turbidity CLEAR Urine pH 5.0 Urine Specific O'Brien 1.011 Urine Protein TRACE Urine Glucose (UA) NEG Urine Ketones NEG Urine Occult Blood NEG Urine Nitrite NEG Urine Bilirubin NEG Urine Urobilinogen LESS THAN 2.0 Urine Leukocyte Esterase NEG Urine RBC 3 Urine WBC LESS THAN 1 Urine Bacteria Urine Hyaline Casts 5 Urine Mucus FEW Microscopic Urinalysis Comment CATH-CULT NOT IND Test 05/24/17 05/24/17 05/24/17 05/24/17 01:39 03:50 04:48 10:34 Potassium Level 7.6 7.4 7.0 Sodium Level 142 142 Chloride Level 117 118 Carbon Dioxide Level 18.1 19.6 Anion Gap 7 4 Blood Urea Nitrogen 52 52 Creatinine 3.49 3.12 Estimat Glomerular Filtration 21 24 Rate Random Glucose 197 150 Calcium Level 8.5 8.4 White Blood Count 7.7 Red Blood Count 3.52 Hemoglobin 11.0 Hematocrit 34.0 Mean Corpuscular Volume 96.6 Mean Corpuscular Hemoglobin 31.3 Mean Corpuscular Hemoglobin 32.4 Concent Red Cell Distribution Width 14.2 Platelet Count 178 Mean Platelet Volume 9.8 Neutrophils (%) (Auto) 87.5 Lymphocytes (%) (Auto) 10.0 Monocytes (%) (Auto) 2.3 Eosinophils (%) (Auto) 0.0 Basophils (%) (Auto) 0.2 Neutrophils # (Auto) 6.8 Lymphocytes # (Auto) 0.8 Monocytes # (Auto) 0.2 Eosinophils # (Auto) 0.0 Basophils # (Auto) 0.0 CBC Comment DIFF FINAL Differential Comment Test 05/24/17 13:14 Potassium Level 6.2 Date/Time Procedure Status Source Growth 05/23/17 19:30 Aerobic Blood Culture - Preliminary Resulted Blood Peripheral NO GROWTH IN 1 DAY 05/23/17 19:30 Anaerobic Blood Culture - Preliminary Resulted Blood Peripheral NO GROWTH IN 1 DAY Result Diagram: 05/24/17 1034 05/24/17 1314 Imaging Last 48 hours Impressions Chest X-Ray 05/23/17 1924 Signed Impressions: Service Date/Time: Thursday, May 23, 2017 19:45 - CONCLUSION: 1. Cardiomegaly. 2. No acute focal pulmonary infiltrate or pulmonary vascular congestion. Migel Doe MD Assessment and Plan Problem List: (1) Acute renal failure Plan: Most likely related to intravascular volume depletion. Patient may have been using NSAIDs also but specific details of use prior to admission uncertain. Continue IV hydration as ordered with monitoring of volume status given history of CHF. Creatinine is improving albeit slowly. Also evidence of metabolic acidosis secondary to renal insufficiency. Continue supplemental sodium bicarbonate. Medications should be adjusted for the patient's estimated GFR if clinically indicated. Avoid agents with significant potential for nephrotoxicity possible including NSAIDs for analgesia, iodine contrast agents. Gadolinium is contraindicated if the GFR is below 30. (2) Hyperkalemia Plan: Secondary to acute renal insufficiency coupled with the presence of the BRANDIE inhibitor and Aldactone. Agree with discontinuance of the BRANDIE inhibitor and Aldactone at this time. Fortunately the potassium level is improving and dialysis can be avoided presently. In the future I would recommend avoidance of a potassium sparing diuretic and this patient given severity of hyperkalemia on presentation and presence of pre- existing CKD. (3) HTN (hypertension) (4) Hx of congestive heart failure Plan: Apparently no presence of pulmonary edema on presentation. (5) COPD (chronic obstructive pulmonary disease) (6) CKD (chronic kidney disease) stage 3, GFR 30-59 ml/min Plan: Most likely secondary to nephrosis of hypertension as well as diabetic nephropathy. Problem Qualifiers (1) Acute renal failure: Qualified Code: N17.9 - Acute renal failure, unspecified acute renal failure type (2) COPD (chronic obstructive pulmonary disease): Qualified Code: J44.9 - Chronic obstructive pulmonary disease, unspecified COPD type Jenaro Ji MD May 24, 2017 15:35
--- NOTE | 2017-05-24 18:47 | RADRPT ---
EXAM DATE/TIME: 05/24/2017 16:31 [facility] COMPARISON: No previous studies available for comparison. INDICATIONS : Increased Bun and Creatine. MEDICAL HISTORY : Congestive heart failure. Hypertension. Chronic obstructive pulmonary disease. Prostate cancer. Diab etic. SURGICAL HISTORY : Right carpal tunnel. ENCOUNTER: Initial ACUITY: 1 day PAIN SCORE: 2/10 LOCATION: Bilateral flank MEASUREMENTS: RIGHT KIDNEY: 12.7 x 5.1 x 5.8 cm LEFT KIDNEY: 11.7 x 5.8 x 6.5 cm FINDINGS: RIGHT KIDNEY: Renal cortex is normal in thickness and echotexture. No hydronephrosis, stone, or mass. LEFT KIDNEY: Renal cortex is normal in thickness and echotexture. No hydronephrosis, stone, or mass. BLADDER: Within normal limits given the degree of distension. CONCLUSION: Normal examination. Armond Bright MD on May 24, 2017 at 18:43 Board Certified Radiologist. This report was verified electronically.
[2017-05-24 19:24] LABS: BICARBONATE 22.3 MEQ/L (21.0-32.0); POTASSIUM 5.9 MEQ/L (3.5-5.1)
[2017-05-25] VITALS (13 sets, daily range): BP systolic 140–178; BP diastolic 62–79; PULSE 72–98; RESP 16–26; TEMP 97.2–98.5; O2SAT 93–100
[2017-05-25] MEDS: INSULIN ASPART SUPPLEMENTAL SCALE SQ SCH ×4 (01:30→19:30)
[2017-05-25] MEDS: RESP: ALBUTEROL 2.5 MG/IPRATROPIUM 0.5 MG NEB (SCH) INH ×2 (04:00→21:24)
[2017-05-25] MEDS: CHLORHEXIDINE GLUCONATE 2 % 1 PACK (2 CLOTHS) TOP SCH (04:00)
[2017-05-25] MEDS: RESP: ALBUTEROL 1.25 MG/3 ML NEB (SCH) NEB ×5 (04:08→21:24)
[2017-05-25 04:44] LABS: AUTOMATED NEUTROPHIL # 7.1 TH/MM3 (1.8-7.7); BASOPHIL % 0.4 % (0.0-2.0); EOSINOPHIL % 0.3 % (0.0-4.0); HEMATOCRIT 30.5 % (39.0-51.0); HEMO FLAGS DIFF FINAL; LYMPHOCYTE # 2.3 TH/MM3 (1.0-4.8); MEAN CELL VOLUME 97.1 FL (80.0-100.0); MEAN CORPUSCULAR HEMOGLOBIN 31.6 PG (27.0-34.0); MEAN CORPUSCULAR HGB CONC 32.6 % (32.0-36.0); MONO % 9.3 % (0.0-8.0); PLATELET COUNT 168 TH/MM3 (150-450); RED BLOOD COUNT 3.14 MIL/MM3 (4.50-5.90); WHITE BLOOD COUNT 10.4 TH/MM3 (4.0-11.0)
[2017-05-25 05:42] LABS: ALKALINE PHOSPHATASE 58 U/L (45-117); ALT (GPT) 11 U/L (12-78); ANION GAP 5 MEQ/L (5-15); AST (GOT) 17 U/L (15-37); BICARBONATE 27.5 MEQ/L (21.0-32.0); BLOOD UREA NITROGEN 41 MG/DL (7-18); CHLORIDE 112 MEQ/L (98-107); GLOMERULAR FILTRATION RATE 37 ML/MIN (>89); POTASSIUM 5.4 MEQ/L (3.5-5.1); SODIUM (NA) 144 MEQ/L (136-145); TOTAL BILIRUBIN ADULT 0.2 MG/DL (0.2-1.0); TOTAL PROTEIN SPE 6.3 GM/DL (6.0-7.6)
[2017-05-25] MEDS: PANTOPRAZOLE SOD 40 MG DELAYED RELEASE TAB PO SCH (08:37)
[2017-05-25] MEDS: DOCUSATE SODIUM 50 MG/SENNA 8.6 MG TAB PO SCH ×2 (08:37→21:00)
[2017-05-25] MEDS: SODIUM BICARBONATE 8.4% INJ 150 MEQ in WATER STERILE FOR INJ 850 ML IV SCH (08:38)
--- NOTE | 2017-05-25 08:55 | HHI.CCPN ---
Subjective Remarks/Hospital Course Morbidly obese man with SOB and CKD presents with hypoxemia and K 8.0. Creatinine normally 1.5 range, now > 3. 05/24 Patient is on 2L oxygen with good sats. K level 7.4 at 0350 given Bicarb, Kayexalate, IV insulin, D50, Lasix and Calcium repeat K is pending On Bicarb drip. 05/25 No events overnight. Awake and alert on 3L oxygen. Renal function is improving with Cr: 2.1 this morning from 2.7 and K level 5.4. Objective Vital Signs Date Time Temp Pulse Resp B/P Pulse Ox O2 Delivery O2 Flow Rate FiO2 05/25/17 08:19 99 Nasal Cannula 3.00 05/25/17 06:00 92 05/25/17 04:00 98.2 20 144/65 05/23/17 23:04 25 Intake and Output 05/24/17 05/24/17 05/25/17 08:00 16:00 00:00 Intake Total 1379 ml 1423 ml 1012 ml Output Total 1670 ml 1500 ml 600 ml Balance -291 ml -77 ml 412 ml Result Diagram: 05/25/17 0311 05/25/17 0311 Other Results Laboratory Tests Test 05/24/17 05/24/17 05/24/17 05/25/17 10:34 13:14 18:40 03:11 White Blood Count 7.7 TH/MM3 10.4 TH/MM3 Red Blood Count 3.52 MIL/MM3 3.14 MIL/MM3 Hemoglobin 11.0 GM/DL 9.9 GM/DL Hematocrit 34.0 % 30.5 % Mean Corpuscular Volume 96.6 FL 97.1 FL Mean Corpuscular Hemoglobin 31.3 PG 31.6 PG Mean Corpuscular Hemoglobin 32.4 % 32.6 % Concent Red Cell Distribution Width 14.2 % 14.0 % Platelet Count 178 TH/MM3 168 TH/MM3 Mean Platelet Volume 9.8 FL 9.7 FL Neutrophils (%) (Auto) 87.5 % 68.0 % Lymphocytes (%) (Auto) 10.0 % 22.0 % Monocytes (%) (Auto) 2.3 % 9.3 % Eosinophils (%) (Auto) 0.0 % 0.3 % Basophils (%) (Auto) 0.2 % 0.4 % Neutrophils # (Auto) 6.8 TH/MM3 7.1 TH/MM3 Lymphocytes # (Auto) 0.8 TH/MM3 2.3 TH/MM3 Monocytes # (Auto) 0.2 TH/MM3 1.0 TH/MM3 Eosinophils # (Auto) 0.0 TH/MM3 0.0 TH/MM3 Basophils # (Auto) 0.0 TH/MM3 0.0 TH/MM3 CBC Comment DIFF FINAL DIFF FINAL Differential Comment Potassium Level 6.2 MEQ/L 5.9 MEQ/L 5.4 MEQ/L Sodium Level 143 MEQ/L 144 MEQ/L Chloride Level 115 MEQ/L 112 MEQ/L Carbon Dioxide Level 22.3 MEQ/L 27.5 MEQ/L Anion Gap 6 MEQ/L 5 MEQ/L Blood Urea Nitrogen 48 MG/DL 41 MG/DL Creatinine 2.70 MG/DL 2.16 MG/DL Estimat Glomerular Filtration 29 ML/MIN 37 ML/MIN Rate Random Glucose 110 MG/DL 88 MG/DL Calcium Level 8.0 MG/DL 8.1 MG/DL Total Bilirubin 0.2 MG/DL Aspartate Amino Transf 17 U/L (AST/SGOT) Alanine Aminotransferase 11 U/L (ALT/SGPT) Alkaline Phosphatase 58 U/L Total Protein 6.3 GM/DL Albumin 2.6 GM/DL 25-Hydroxy Vitamin D Total 10.5 ng/ML Parathyroid Hormone (Intact) 124.6 PG/ML Complement C3 110 MG/DL Complement C4 32 MG/DL Imaging Last Impressions Renal Ultrasound 05/24/17 0000 Signed Impressions: Service Date/Time: Wednesday, May 24, 2017 16:31 - CONCLUSION: Normal examination. Armond Bright MD Chest X-Ray 05/23/17 192 Signed Impressions: Service Date/Time: Tuesday, May 23, 2017 19:45 - CONCLUSION: 1. Cardiomegaly. 2. No acute focal pulmonary infiltrate or pulmonary vascular congestion. Migel Doe MD Objective Remarks GENERAL: Patient is 66 yo lying in bed in NAD SKIN: Warm and dry. HEAD: Normocephalic. EYES: No scleral icterus. No injection or drainage. NECK: Supple, trachea midline. No JVD or lymphadenopathy. CARDIOVASCULAR: Regular rate and rhythm without murmurs, gallops, or rubs. RESPIRATORY: Breath sounds equal bilaterally. No accessory muscle use. GASTROINTESTINAL: Abdomen soft, non-tender, nondistended. MUSCULOSKELETAL: No cyanosis,++ edema. BACK: Nontender without obvious deformity. No CVA tenderness. A/P Assessment and Plan Assessment: 1)Resp Insuff 2)CKD with CHRISTAL. 3) Hyperkalemia. 4) Morbid obesity. 5)Hyperglycemia 6)HTN Plan: Neuro: Awake and alert, avoid sedatives Pulm: Continue with oxygen keep sat >92% Bronchodilators, NIPPV PRN for resp distress CV: Monitor HR and BP keep MAP>65mmHg. On Norvasc 10mg daily : Monitor renal function, I/O's, avoid nephrotoxins. Will give Kayexalate 30gms for K 5.4 Renal function is improving with Cr: 2.1 from 2.7, UOP: 2800, renal US: within normal. Change bicarb drip to NS@84ml/hr, Renal is following- Dr. Ji GI: On PO diet ID: Monitor for signs of infections ( Fever, WBC) panculture if spikes fever CXR: No acute infiltrates Heme: Monitor CBC Endo: SSI with accuchecks GI prophylaxis- On Protonix 40mg daily DVT prophylaxis- On Heparin SQ Level 3 Goldy Brown MD May 25, 2017 08:55
[2017-05-25] MEDS ORDERED: SODIUM CHLOR 0.9% 1000 ML INJ 1,000 ML IV SCH (09:00)
[2017-05-25] MEDS ORDERED: SODIUM POLYSTYRENE SULFONATE SUSP 15 GM/60 ML CUP PO ONE (09:00)
--- NOTE | 2017-05-25 10:06 | HHI.NPPN ---
Subjective History of Present Illness This patient is a 66-year-old male who is a very poor historian currently. 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 Interval History More alert today. Says he is feeling much better. Denies CP or SOB Review of Systems General General Remarks Voiced no verbal complaints Objective Data Data 05/24/17 05/25/17 19:00 07:00 Intake Total 1423 ml 1890 ml Output Total 1500 ml 1300 ml Balance -77 ml 590 ml Intake Oral 600 ml 200 ml IV Total 823 ml 1690 ml Output Urine Total 1500 ml 1300 ml # Bowel Movements 5 3 Vital Signs Date Time Temp Pulse Resp B/P Pulse Ox O2 Delivery O2 Flow Rate FiO2 05/25/17 08:19 99 Nasal Cannula 3.00 05/25/17 06:00 92 05/25/17 04:00 98.2 86 20 144/65 100 05/25/17 04:00 86 05/25/17 02:00 97 05/25/17 00:00 98.5 86 16 140/62 93 05/25/17 00:00 86 05/24/17 22:00 83 05/24/17 20:00 84 05/24/17 20:00 98.4 84 22 123/58 97 05/24/17 19:48 100 Nasal Cannula 2.00 05/24/17 19:00 97 Nasal Cannula 2.00 05/24/17 18:00 90 05/24/17 16:00 88 05/24/17 16:00 98.7 85 16 137/67 97 05/24/17 14:00 75 05/24/17 12:00 98.1 91 24 137/64 97 05/24/17 12:00 76 05/24/17 10:00 59 -: 05/25/17 0311 05/25/17 0311 Imaging Last Impressions Renal Ultrasound 05/24/17 0000 Signed Impressions: Service Date/Time: Wednesday, May 24, 2017 16:31 - CONCLUSION: Normal examination. Armond Bright MD Chest X-Ray 05/23/171923 Signed Impressions: Service Date/Time: Tuesday, May 23, 2017 19:45 - CONCLUSION: 1. Cardiomegaly. 2. No acute focal pulmonary infiltrate or pulmonary vascular congestion. Migel Doe MD Medication Review Current Medications Medications (Trade) Dose Ordered Sig/Marleny Route Start Time Stop Time Status Last Admin (NS Flush) 2 ml UNSCH PRN IVF 05/23/17 19:30 05/23/17 19:43 (Tylenol) 650 mg Q6H PRN PO 05/23/17 21:45 (Protonix) 40 mg DAILY PO 05/24/17 09:00 05/25/17 08:37 (Zofran Inj) 4 mg Q6H PRN IV 05/23/17 21:45 (Heparin Inj) 5,000 units Q12H SQ 05/23/17 22:00 05/24/17 23:23 Miscellaneous Information 1 Q361D XX 05/23/17 21:45 (Chlorhexidine 2% Cloth) 3 pack Taper DAILY@04 TOP 05/24/17 04:00 05/20/18 03:59 05/25/17 04:00 (Chlorhexidine 2% Cloth) 3 pack UNSCH PRN TOP 05/23/17 21:45 (Carmelita-Colace) 1 tab BID PO 05/24/17 09:00 05/25/17 08:37 (Senokot) 17.2 mg Q12H PRN PO 05/23/17 21:45 (Dulcolax Supp) 10 mg DAILY PRN RECTAL 05/23/17 21:45 (Lactulose Liq) 30 ml DAILY PRN PO 05/23/17 21:45 (Norvasc) 10 mg DAILY PO 05/24/17 09:00 05/25/17 08:37 (NovoLOG SUPPLEMENTAL SCALE) 1 Q6H SQ 05/24/17 01:30 05/24/17 13:30 (D50w (Syr) Inj) 50 ml UNSCH PRN IV 05/24/17 01:30 Glucagon 1 mg 1 mg UNSCH PRN OTHER 05/24/17 01:30 (NS 1000 ml Inj) 1,000 ml @ 84 mls/hr [id number] IV 05/25/17 09:00 Physical Exam General Appearance: No Acute Distress, Comfortable Pulmonary Resp Exam: Clear Bilaterally, Breath Sounds Equal Cardiology CV Exam: Regular, Normal Sinus Rhythm Gastrointestinal/Abdomen GI Exam: Soft, Non-Tender Integumentary Skin Exam: Clear, Warm Extremeties Extremities Exam: No Edema Neurologic Neuro Exam: Alert, Awake Assessment/Plan Problem List: (1) Acute renal failure Plan: Most likely related to intravascular volume depletion. Patient may have been using NSAIDs also but specific details of use prior to admission uncertain. Continue IVF Fluid changed to NS at 84 this AM by CC. Monitor for signs of fluid retention Medications should be adjusted for the patient's estimated GFR if clinically indicated. Avoid agents with significant potential for nephrotoxicity possible including NSAIDs for analgesia, iodine contrast agents. Gadolinium is contraindicated if the GFR is below 30. (2) Hyperkalemia Plan: K+ improving Kionex given this AM Secondary to acute renal insufficiency coupled with the presence of the BRANDIE inhibitor and Aldactone. Agree with discontinuance of the BRANDIE inhibitor and Aldactone at this time. Fortunately the potassium level is improving and dialysis can be avoided presently. In the future I would recommend avoidance of a potassium sparing diuretic and this patient given severity of hyperkalemia on presentation and presence of pre- existing CKD. (3) HTN (hypertension) Plan: Continue on current regimen (4) Hx of congestive heart failure Plan: No presence of pulmonary edema on presentation. Pt states he does take Lasix as outpatient (5) COPD (chronic obstructive pulmonary disease) (6) CKD (chronic kidney disease) stage 3, GFR 30-59 ml/min Plan: Most likely secondary to nephrosis of hypertension as well as diabetic nephropathy. (7) Hyperparathyroidism, secondary Plan: with Vitamin D deficiency. (8) Vitamin D deficiency Plan: Add on Ergo 50,000 q7d Problem Qualifiers (1) Acute renal failure: Qualified Code: N17.9 - Acute renal failure, unspecified acute renal failure type (2) COPD (chronic obstructive pulmonary disease): Qualified Code: J44.9 - Chronic obstructive pulmonary disease, unspecified COPD type Anuja Francis May 25, 2017 10:06
[2017-05-25] MEDS: HEPARIN SODIUM - SQ 10,000 UNITS/ML VIAL SQ SCH ×2 (11:18→20:14)
[2017-05-25] MEDS ORDERED: ERGOCALCIFEROL (VIT D2) 50,000 UNIT CAP PO SCH (12:00)
--- NOTE | 2017-05-25 15:12 | HHI.CCPN ---
Subjective Remarks/Hospital Course Morbidly obese man with SOB and CKD presents with hypoxemia and K 8.0. Creatinine normally 1.5 range, now > 3. 05/24 Patient is on 2L oxygen with good sats. K level 7.4 at 0350 given Bicarb, Kayexalate, IV insulin, D50, Lasix and Calcium repeat K is pending On Bicarb drip. 05/25 No events overnight. Awake and alert on 3L oxygen. Renal function is improving with Cr: 2.1 this morning from 2.7 and K level 5.4. Objective Vital Signs Date Time Temp Pulse Resp B/P Pulse Ox O2 Delivery O2 Flow Rate FiO2 05/25/17 14:00 90 05/25/17 12:00 98.0 24 178/79 100 05/25/17 08:19 Nasal Cannula 3.00 05/23/17 23:04 25 Intake and Output 05/24/17 05/24/17 05/25/17 08:00 16:00 00:00 Intake Total 1379 ml 1423 ml 1012 ml Output Total 1670 ml 1500 ml 600 ml Balance -291 ml -77 ml 412 ml Result Diagram: 05/25/17 0311 05/25/17 1405 Imaging Last Impressions Renal Ultrasound 05/24/17 0000 Signed Impressions: Service Date/Time: Wednesday, May 24, 2017 16:31 - CONCLUSION: Normal examination. Armond Bright MD Chest X-Ray 05/23/17 1924 Signed Impressions: Service Date/Time: Tuesday, May 23, 2017 19:45 - CONCLUSION: 1. Cardiomegaly. 2. No acute focal pulmonary infiltrate or pulmonary vascular congestion. Migel Doe MD Objective Remarks GENERAL: Patient is 66 yo lying in bed in NAD SKIN: Warm and dry. HEAD: Normocephalic. EYES: No scleral icterus. No injection or drainage. NECK: Supple, trachea midline. No JVD or lymphadenopathy. CARDIOVASCULAR: Regular rate and rhythm without murmurs, gallops, or rubs. RESPIRATORY: Breath sounds equal bilaterally. No accessory muscle use. GASTROINTESTINAL: Abdomen soft, non-tender, nondistended. MUSCULOSKELETAL: No cyanosis,++ edema. BACK: Nontender without obvious deformity. No CVA tenderness. A/P Assessment and Plan Assessment: 1)Resp Insuff 2)CKD with CHRISTAL. 3) Hyperkalemia. 4) Morbid obesity. 5)Hyperglycemia 6)HTN Plan: Neuro: Awake and alert, avoid sedatives Pulm: Continue with oxygen keep sat >92% Bronchodilators, NIPPV PRN for resp distress CV: Monitor HR and BP keep MAP>65mmHg. On Norvasc 10mg daily : Monitor renal function, I/O's, avoid nephrotoxins. Will give Kayexalate 30gms for K 5.4 Renal function is improving with Cr: 2.1 from 2.7, UOP: 2800, renal US: within normal. Change bicarb drip to NS@84ml/hr, Renal is following- Dr. Ji GI: On PO diet ID: Monitor for signs of infections ( Fever, WBC) panculture if spikes fever CXR: No acute infiltrates Heme: Monitor CBC Endo: SSI with accuchecks GI prophylaxis- On Protonix 40mg daily DVT prophylaxis- On Heparin SQ Will sign off and transfer acre to [facility] Level 3 Goldy Brown MD May 25, 2017 15:12
[2017-05-26] VITALS (13 sets, daily range): BP systolic 130–177; BP diastolic 63–84; PULSE 74–95; RESP 18–26; TEMP 96.8–98.7; O2SAT 89–99
[2017-05-26] MEDS: RESP: ALBUTEROL 1.25 MG/3 ML NEB (SCH) NEB ×4 (00:50→16:00)
[2017-05-26] MEDS: INSULIN ASPART SUPPLEMENTAL SCALE SQ SCH ×4 (01:30→18:35)
[2017-05-26] MEDS: RESP: ALBUTEROL 2.5 MG/IPRATROPIUM 0.5 MG NEB (SCH) INH ×3 (03:50→16:37)
[2017-05-26] MEDS: CHLORHEXIDINE GLUCONATE 2 % 1 PACK (2 CLOTHS) TOP SCH (03:56)
[2017-05-26 07:09] LABS: AUTOMATED NEUTROPHIL # 4.8 TH/MM3 (1.8-7.7); BASOPHIL # 0.1 TH/MM3 (0-0.2); BASOPHIL % 0.9 % (0.0-2.0); EOSINOPHIL # 0.2 TH/MM3 (0-0.4); EOSINOPHIL % 2.6 % (0.0-4.0); HEMATOCRIT 33.7 % (39.0-51.0); HEMO FLAGS DIFF FINAL; LYMPH % 22.8 % (9.0-44.0); LYMPHOCYTE # 1.7 TH/MM3 (1.0-4.8); MEAN CELL VOLUME 96.1 FL (80.0-100.0); MEAN CORPUSCULAR HEMOGLOBIN 31.4 PG (27.0-34.0); MEAN CORPUSCULAR HGB CONC 32.7 % (32.0-36.0); MONO % 9.3 % (0.0-8.0); NEUT % 64.4 % (16.0-70.0); PLATELET COUNT 164 TH/MM3 (150-450); RED BLOOD COUNT 3.51 MIL/MM3 (4.50-5.90); RED CELL DISTRIBUTION WIDTH 13.9 % (11.6-17.2); WHITE BLOOD COUNT 7.4 TH/MM3 (4.0-11.0)
[2017-05-26 07:37] LABS: BICARBONATE 28.6 MEQ/L (21.0-32.0); POTASSIUM 5.2 MEQ/L (3.5-5.1)
[2017-05-26] MEDS: DOCUSATE SODIUM 50 MG/SENNA 8.6 MG TAB PO SCH ×2 (08:05→21:01)
[2017-05-26] MEDS: PANTOPRAZOLE SOD 40 MG DELAYED RELEASE TAB PO SCH (08:05)
[2017-05-26 09:20] LABS: ALBUMIN SPE 3.33 GM/DL (3.50-5.00); ALPHA 1 GLOBULIN 0.25 GM/DL (0.11-0.29); ALPHA 2 GLOBULIN 0.66 GM/DL (0.22-1.00); BETA GLOBULINS (SPE) 0.88 GM/DL (0.53-1.03)
--- NOTE | 2017-05-26 10:29 | HHI.PR ---
Subjective Remarks This is a pleasant 66 y/o Male with Hypertension, COPD, DM II, CHF, Anemia, CKD , admitted due to Acute Renal Injury most likely related to Intravascular volume depletion, the patient followed in Intensive Care unit due to Hyperkalemia secondary to Acute Renal Injury, the patient was on NSAIDs, recommended by Nephrology to continue IV fluids monitor volume status due to CHF, creatinine improving slowly, on supplemental bicarbonate due to Metabolic acidosis secondary to renal insufficiency, discontinued BRANDIE inhibitor and Aldactone due to Hyperkalemia, avoid Dialysis at this time. patient stable in his bedroom, asked to transfer patient to Medical floor but continue Telemetry, added Physical Therapy consult, may start activity , he smokes one pack of cigarettes daily, removed Foster Cath, has DM II, optimized medicines, optimized bronchodilator, Mucolytic and incentive spirometry. Objective Vital Signs Date Time Temp Pulse Resp B/P Pulse Ox O2 Delivery O2 Flow Rate FiO2 05/26/17 08:00 95 05/26/17 08:00 98.2 74 24 130/82 94 05/26/17 07:47 99 Nasal Cannula 2.00 05/26/17 07:00 93 Nasal Cannula 2.00 05/26/17 04:00 98.1 74 26 148/72 96 05/26/17 00:00 97.8 77 25 170/68 89 05/25/17 21:25 99 Nasal Cannula 2.00 05/25/17 20:00 97.2 80 26 146/70 99 05/25/17 19:00 98 Nasal Cannula 2.00 05/25/17 18:00 94 05/25/17 16:00 78 05/25/17 16:00 98.4 98 20 143/70 97 05/25/17 14:00 90 05/25/17 12:00 72 05/25/17 12:00 98.0 72 24 178/79 100 I/O 05/25/17 05/25/17 05/25/17 05/26/17 05/26/17 05/26/17 07:00 15:00 23:00 07:00 15:00 23:00 Intake Total 878 ml 1393 ml 480 ml 360 ml Output Total 700 ml 140 ml 450 ml 1200 ml Balance 178 ml 1253 ml 30 ml -840 ml Intake Oral 600 ml 480 ml 360 ml IV Total 878 ml 793 ml 0 ml 0 ml Output Urine Total 700 ml 140 ml 450 ml 1200 ml # Bowel Movements 0 0 0 Result Diagram: 05/26/17 0537 05/26/17 0537 Imaging Last Impressions Renal Ultrasound 05/24/17 0000 Signed Impressions: Service Date/Time: Wednesday, May 24, 2017 16:31 - CONCLUSION: Normal examination. Armond Bright MD Chest X-Ray 05/23/17 1924 Signed Impressions: Service Date/Time: Tuesday, May 23, 2017 19:45 - CONCLUSION: 1. Cardiomegaly. 2. No acute focal pulmonary infiltrate or pulmonary vascular congestion. Migel Doe MD Procedures No procedures Other Results Laboratory Tests Test 05/23/17 05/23/17 05/23/17 05/24/17 19:30 20:40 23:25 00:45 Prothrombin Time 10.0 SEC Prothromb Time International 0.9 RATIO Ratio Activated Partial 30.7 SEC Thromboplast Time Lactic Acid Level 1.6 mmol/L B-Type Natriuretic Peptide 33 PG/ML Magnesium Level 2.5 MG/DL Total Creatine Kinase 374 U/L Creatine Kinase MB 4.4 NG/ML Creatine Kinase MB % 1.2 % Troponin I 0.10 NG/ML Nasal Screen MRSA (PCR) MRSA NOT DETECTED Urine Color LIGHT-YELLOW Urine Turbidity CLEAR Urine pH 5.0 Urine Specific Mercedes 1.011 Urine Protein TRACE mg/dL Urine Glucose (UA) NEG mg/dL Urine Ketones NEG mg/dL Urine Occult Blood NEG Urine Nitrite NEG Urine Bilirubin NEG Urine Urobilinogen LESS THAN 2.0 MG/DL Urine Leukocyte Esterase NEG Urine RBC 3 /hpf Urine WBC LESS THAN 1 /hpf Urine Bacteria /hpf Urine Hyaline Casts 5 /lpf Urine Mucus FEW /lpf Microscopic Urinalysis Comment CATH-CULT NOT IND Urine Random Creatinine 85 MG/DL Urine Random Total Protein 30 MG/DL Urine Protein/Creatinine Ratio 0.35 Test 05/25/17 05/26/17 03:11 05:37 25-Hydroxy Vitamin D Total 10.5 ng/ML Parathyroid Hormone (Intact) 124.6 PG/ML Complement C3 110 MG/DL Complement C4 32 MG/DL Hepatitis B Surface Antigen NEGATIVE Hepatitis C Antibody NEGATIVE Total Bilirubin 0.2 MG/DL Aspartate Amino Transf 17 U/L (AST/SGOT) Alanine Aminotransferase 11 U/L (ALT/SGPT) Alkaline Phosphatase 58 U/L Total Protein 6.3 GM/DL Albumin 3.33 GM/DL Albumin/Globulin Ratio 1.12 Wkugk-7-Pqygierax 0.25 GM/DL Rtibl-6-Bqtmvozto 0.66 GM/DL Beta Globulins 0.88 GM/DL Gamma Globulins 1.18 GM/DL White Blood Count 7.4 TH/MM3 Red Blood Count 3.51 MIL/MM3 Hemoglobin 11.0 GM/DL Hematocrit 33.7 % Mean Corpuscular Volume 96.1 FL Mean Corpuscular Hemoglobin 31.4 PG Mean Corpuscular Hemoglobin 32.7 % Concent Red Cell Distribution Width 13.9 % Platelet Count 164 TH/MM3 Mean Platelet Volume 10.1 FL Neutrophils (%) (Auto) 64.4 % Lymphocytes (%) (Auto) 22.8 % Monocytes (%) (Auto) 9.3 % Eosinophils (%) (Auto) 2.6 % Basophils (%) (Auto) 0.9 % Neutrophils # (Auto) 4.8 TH/MM3 Lymphocytes # (Auto) 1.7 TH/MM3 Monocytes # (Auto) 0.7 TH/MM3 Eosinophils # (Auto) 0.2 TH/MM3 Basophils # (Auto) 0.1 TH/MM3 CBC Comment DIFF FINAL Differential Comment Sodium Level 143 MEQ/L Potassium Level 5.2 MEQ/L Chloride Level 110 MEQ/L Carbon Dioxide Level 28.6 MEQ/L Anion Gap 4 MEQ/L Blood Urea Nitrogen 29 MG/DL Creatinine 1.31 MG/DL Estimat Glomerular Filtration 67 ML/MIN Rate Random Glucose 81 MG/DL Calcium Level 8.5 MG/DL Objective Remarks GENERAL: Morbid Obesity, no acute distress. SKIN: Warm and dry. HEAD: Atraumatic. Normocephalic. EYES: Pupils equal and round. No scleral icterus. No injection or drainage. ENT: No nasal bleeding or discharge. Mucous membranes pink and moist. NECK: Trachea midline. No JVD. CARDIOVASCULAR: Regular rate and rhythm. RESPIRATORY: No accessory muscle use. Clear to auscultation. Breath sounds equal bilaterally. GASTROINTESTINAL: Abdomen soft, non-tender, nondistended. Hepatic and splenic margins not palpable. Foster in place. MUSCULOSKELETAL: Extremities without clubbing, cyanosis, or edema. No obvious deformities. NEUROLOGICAL: Awake and alert. No obvious cranial nerve deficits. Motor grossly within normal limits. Five out of 5 muscle strength in the arms and legs. Normal speech. PSYCHIATRIC: Appropriate mood and affect; insight and judgment normal. Medications and IVs Current Medications Medications (Trade) Dose Ordered Sig/Marleny Route Start Time Stop Time Status Last Admin (NS Flush) 2 ml UNSCH PRN IVF 05/23/17 19:30 05/23/17 19:43 (Tylenol) 650 mg Q6H PRN PO 05/23/17 21:45 (Protonix) 40 mg DAILY PO 05/24/17 09:00 05/26/17 08:05 (Zofran Inj) 4 mg Q6H PRN IV 05/23/17 21:45 (Heparin Inj) 5,000 units Q12H SQ 05/23/17 22:00 05/25/17 20:14 Miscellaneous Information 1 Q361D XX 05/23/17 21:45 (Chlorhexidine 2% Cloth) 3 pack Taper DAILY@04 TOP 05/24/17 04:00 05/20/18 03:59 05/26/17 03:56 (Chlorhexidine 2% Cloth) 3 pack UNSCH PRN TOP 05/23/17 21:45 (Carmelita-Colace) 1 tab BID PO 05/24/17 09:00 05/25/17 08:37 (Senokot) 17.2 mg Q12H PRN PO 05/23/17 21:45 (Dulcolax Supp) 10 mg DAILY PRN RECTAL 05/23/17 21:45 (Lactulose Liq) 30 ml DAILY PRN PO 05/23/17 21:45 (Norvasc) 10 mg DAILY PO 05/24/17 09:00 05/26/17 08:05 (NovoLOG SUPPLEMENTAL SCALE) 1 Q6H SQ 05/24/17 01:30 05/24/17 13:30 (D50w (Syr) Inj) 50 ml UNSCH PRN IV 05/24/17 01:30 Glucagon 1 mg 1 mg UNSCH PRN OTHER 05/24/17 01:30 (NS 1000 ml Inj) 1,000 ml @ 84 mls/hr [id number] IV 05/25/17 09:00 (Drisdol) 50,000 units Q7D PO 05/25/17 12:00 A/P Assessment and Plan 1. Respiratory insufficiency probable related to COPD, Obesity hypoventilation syndrome, to continue Bronchodilator, Mucolytic, incentive spirometry, oxygen as needed. Optimize management. 2. Acute kidney injury on chronic kidney disease Stage II, now improving to baseline. Nephrology specialist following 3. Hyperkalemia improving. Nephrology following 4. Morbid Obesity strongly recommended diet and exercise, PT evaluation 5. Hypertension controlled. 6. DM II continue sliding scale. Hemoglobin A1C 5.9 GI prophylaxis- On Protonix 40mg daily DVT prophylaxis- On Heparin SQ PT consult transfer to medical Floor following Nephrology specialist management caseworker intake for discharge. Discharge Planning once cleared by nephrology specialist. Valentin Chanel MD May 26, 2017 10:29 Heme: Monitor CBC Endo: SSI with accuchecks GI prophylaxis- On Protonix 40mg daily DVT prophylaxis- On Heparin SQ Will sign off and transfer acre to [facility] Level 3 Goldy Brown MD May 25, 2017 15:12 This is a pleasant 66 y/o Male with Hypertension, COPD, DM II, CHF, Anemia, CKD , admitted due to Acute Renal Injury most likely related to Intravascular volume depletion, the patient followed in Intensive Care unit due to Hyperkalemia secondary to Acute Renal Injury, the patient was on NSAIDs, recommended by Nephrology to continue IV fluids monitor volume status due to CHF, creatinine improving slowly, on supplemental bicarbonate due to Metabolic acidosis secondary to renal insufficiency, discontinued BRANDIE inhibitor and Aldactone due to Hyperkalemia, avoid Dialysis at this time. Valentin Chanel MD May 26, 2017 10:29
--- NOTE | 2017-05-26 11:24 | HHI.NPPN ---
Subjective History of Present Illness This patient is a 66-year-old male who is a very poor historian currently. Patient does not know the name of his primary care physician, network support analyst and indicated they may or may not have seen a log deck tender in the past but cannot indicate the name, location date of visit. Interval History Pt feeling well today. BP elevated. Review of Systems General General Remarks Voiced no verbal complaints Objective Data Data 05/25/17 05/26/17 19:00 07:00 Intake Total 1393 ml 840 ml Output Total 140 ml 1650 ml Balance 1253 ml -810 ml Intake Oral 600 ml 840 ml IV Total 793 ml 0 ml Output Urine Total 140 ml 1650 ml # Bowel Movements 0 Vital Signs Date Time Temp Pulse Resp B/P Pulse Ox O2 Delivery O2 Flow Rate FiO2 05/26/17 08:00 95 05/26/17 08:00 98.2 74 24 130/82 94 05/26/17 07:47 99 Nasal Cannula 2.00 05/26/17 07:00 93 Nasal Cannula 2.00 05/26/17 04:00 98.1 74 26 148/72 96 05/26/17 00:00 97.8 77 25 170/68 89 05/25/17 21:25 99 Nasal Cannula 2.00 05/25/17 20:00 97.2 80 26 146/70 99 05/25/17 19:00 98 Nasal Cannula 2.00 05/25/17 18:00 94 05/25/17 16:00 78 05/25/17 16:00 98.4 98 20 143/70 97 05/25/17 14:00 90 05/25/17 12:00 72 05/25/17 12:00 98.0 72 24 178/79 100 -: 05/26/17 0537 05/26/17 0537 Imaging Last Impressions Renal Ultrasound 05/24/17 0000 Signed Impressions: Service Date/Time: Wednesday, May 24, 2017 16:31 - CONCLUSION: Normal examination. Armond Bright MD Chest X-Ray 05/23/17 192 Signed Impressions: Service Date/Time: Tuesday, May 23, 2017 19:45 - CONCLUSION: 1. Cardiomegaly. 2. No acute focal pulmonary infiltrate or pulmonary vascular congestion. Migel Doe MD Medication Review Current Medications Medications (Trade) Dose Ordered Sig/Marleny Route Start Time Stop Time Status Last Admin (NS Flush) 2 ml UNSCH PRN IVF 05/23/17 19:30 05/23/17 19:43 (Tylenol) 650 mg Q6H PRN PO 05/23/17 21:45 (Protonix) 40 mg DAILY PO 05/24/17 09:00 05/26/17 08:05 (Zofran Inj) 4 mg Q6H PRN IV 05/23/17 21:45 (Heparin Inj) 5,000 units Q12H SQ 05/23/17 22:00 05/25/17 20:14 Miscellaneous Information 1 Q361D XX 05/23/17 21:45 (Chlorhexidine 2% Cloth) 3 pack Taper DAILY@04 TOP 05/24/17 04:00 05/20/18 03:59 05/26/17 03:56 (Chlorhexidine 2% Cloth) 3 pack UNSCH PRN TOP 05/23/17 21:45 (Carmelita-Colace) 1 tab BID PO 05/24/17 09:00 05/25/17 08:37 (Senokot) 17.2 mg Q12H PRN PO 05/23/17 21:45 (Dulcolax Supp) 10 mg DAILY PRN RECTAL 05/23/17 21:45 (Lactulose Liq) 30 ml DAILY PRN PO 05/23/17 21:45 (Norvasc) 10 mg DAILY PO 05/24/17 09:00 05/26/17 08:05 (NovoLOG SUPPLEMENTAL SCALE) 1 Q6H SQ 05/24/17 01:30 05/24/17 13:30 (D50w (Syr) Inj) 50 ml UNSCH PRN IV 05/24/17 01:30 Glucagon 1 mg 1 mg UNSCH PRN OTHER 05/24/17 01:30 (NS 1000 ml Inj) 1,000 ml @ 84 mls/hr [id number] IV 05/25/17 09:00 (Drisdol) 50,000 units Q7D PO 05/25/17 12:00 Physical Exam General Appearance: No Acute Distress, Comfortable Pulmonary Resp Exam: Clear Bilaterally, Breath Sounds Equal Cardiology CV Exam: Regular, Normal Sinus Rhythm Gastrointestinal/Abdomen GI Exam: Soft, Non-Tender Integumentary Skin Exam: Clear, Warm Extremeties Extremities Exam: No Edema Neurologic Neuro Exam: Alert, Awake Assessment/Plan Problem List: (1) Acute renal failure Plan: Most likely related to intravascular volume depletion. Patient may have been using NSAIDs also but specific details of use prior to admission uncertain. Renal functions improving. D/C IVF D/C Foster Remains to be seen where renal indices will stabilize Medications should be adjusted for the patient's estimated GFR if clinically indicated. Avoid agents with significant potential for nephrotoxicity possible including NSAIDs for analgesia, iodine contrast agents. Gadolinium is contraindicated if the GFR is below 30. (2) Hyperkalemia Plan: Improving. Secondary to acute renal insufficiency coupled with the presence of the BRANDIE inhibitor and Aldactone. Agree with discontinuance of the BRANDIE inhibitor and Aldactone at this time. Fortunately the potassium level is improving and dialysis can be avoided presently. In the future I would recommend avoidance of a potassium sparing diuretic and this patient given severity of hyperkalemia on presentation and presence of pre- existing CKD. (3) HTN (hypertension) Plan: Continue on Amlodipine 10mg QD Add on Metoprolol 25mg BID (4) Hx of congestive heart failure Plan: No presence of pulmonary edema on presentation. Pt states he does take Lasix as outpatient (5) COPD (chronic obstructive pulmonary disease) (6) CKD (chronic kidney disease) stage 3, GFR 30-59 ml/min Plan: Most likely secondary to nephrosis of hypertension as well as diabetic nephropathy. (7) Hyperparathyroidism, secondary Plan: with Vitamin D deficiency. (8) Vitamin D deficiency Plan: Continue on Ergo 50,000 q7d Problem Qualifiers (1) Acute renal failure: Qualified Code: N17.9 - Acute renal failure, unspecified acute renal failure type (2) COPD (chronic obstructive pulmonary disease): Qualified Code: J44.9 - Chronic obstructive pulmonary disease, unspecified COPD type Anuja Francis May 26, 2017 11:24
[2017-05-26] MEDS: guaiFENesin E.R. 600 MG TAB PO SCH ×2 (13:13→21:01)
[2017-05-26] MEDS: HEPARIN SODIUM - SQ 10,000 UNITS/ML VIAL SQ SCH ×2 (13:13→21:02)
[2017-05-26] MEDS ORDERED: SODIUM POLYSTYRENE SULFONATE SUSP 15 GM/60 ML CUP PO ONE (14:15)
[2017-05-26] MEDS: ACETAMINOPHEN 325 MG TAB PO PRN (15:34)
[2017-05-26] MEDS: METOPROLOL TARTRATE 25 MG TAB PO SCH (21:01)
[2017-05-27 00:30] VITALS: BP 134/64; PULSE 75; RESP 20; TEMP 97.9; O2SAT 95
[2017-05-27] MEDS: INSULIN ASPART SUPPLEMENTAL SCALE SQ SCH ×3 (01:30→13:19)
[2017-05-27] MEDS: ACETAMINOPHEN 325 MG TAB PO PRN ×2 (02:36→09:24)
[2017-05-27 03:52] LABS: KAPPA/LAMBDA FREE 0.9 (0.26-1.65)
[2017-05-27] MEDS: RESP: ALBUTEROL 1.25 MG/3 ML NEB (SCH) NEB ×4 (04:00→16:00)
[2017-05-27] MEDS: RESP: ALBUTEROL 2.5 MG/IPRATROPIUM 0.5 MG NEB (SCH) INH (04:00)
[2017-05-27] MEDS: CHLORHEXIDINE GLUCONATE 2 % 1 PACK (2 CLOTHS) TOP SCH (04:00)
[2017-05-27 04:30] VITALS: BP 140/67; PULSE 80; RESP 21; TEMP 97; O2SAT 96
[2017-05-27 07:47] VITALS: BP 137/83; PULSE 70; RESP 20; TEMP 96.5; O2SAT 94
--- NOTE | 2017-05-27 08:37 | HHI.PR ---
Subjective Remarks This is a pleasant 66 y/o Male with Hypertension, COPD, DM II, CHF, Anemia, CKD , admitted due to Acute Renal Injury most likely related to Intravascular volume depletion, the patient followed in Intensive Care unit due to Hyperkalemia secondary to Acute Renal Injury, the patient was on NSAIDs, recommended by Nephrology to continue IV fluids monitor volume status due to CHF, creatinine improving slowly, on supplemental bicarbonate due to Metabolic acidosis secondary to renal insufficiency, discontinued BRANDIE inhibitor and Aldactone due to Hyperkalemia, avoid Dialysis at this time. patient stable in his bedroom, asked to transfer patient to Medical floor but continue Telemetry, added Physical Therapy consult, may start activity , he smokes one pack of cigarettes daily, removed Foster Cath, has DM II, optimized medicines, optimized bronchodilator, Mucolytic and incentive spirometry. 05/27: asked for new BMP stat if within normal limits the patient may go home as per medicine awaiting for Nephrology specialist recommendations. seen in his bedroom, no nausea, vomit or diarrhea awaiting for PT evaluation Objective Vital Signs Date Time Temp Pulse Resp B/P Pulse Ox O2 Delivery O2 Flow Rate FiO2 05/27/17 07:47 96.5 70 20 137/83 94 05/27/17 04:30 97.0 80 21 140/67 96 05/27/17 00:30 97.9 75 20 134/64 95 05/26/17 22:00 75 05/26/17 20:30 98.1 74 18 135/63 94 05/26/17 20:10 98 Nasal Cannula 2.00 05/26/17 20:00 95 Nasal Cannula 3.00 05/26/17 18:09 83 05/26/17 17:00 96.8 88 22 162/84 94 05/26/17 16:40 98 Nasal Cannula 2.00 05/26/17 14:00 83 05/26/17 12:00 86 05/26/17 12:00 98.7 86 26 150/71 94 05/26/17 10:00 78 I/O 05/26/17 05/26/17 05/26/17 05/27/17 05/27/17 05/27/17 07:00 15:00 23:00 07:00 15:00 23:00 Intake Total 360 ml 650 ml 750 ml 900 ml Output Total 1200 ml 800 ml 1050 ml 400 ml Balance -840 ml -150 ml -300 ml 500 ml Intake Oral 360 ml 650 ml 750 ml 900 ml IV Total 0 ml Output Urine Total 1200 ml 800 ml 1050 ml 400 ml # Bowel Movements 0 0 0 Result Diagram: 05/26/17 0537 05/26/17 0537 Imaging Last Impressions Renal Ultrasound 05/24/17 0000 Signed Impressions: Service Date/Time: Wednesday, May 24, 2017 16:31 - CONCLUSION: Normal examination. Armond Bright MD Chest X-Ray 05/23/[id number] Signed Impressions: Service Date/Time: Tuesday, May 23, 2017 19:45 - CONCLUSION: 1. Cardiomegaly. 2. No acute focal pulmonary infiltrate or pulmonary vascular congestion. Migel Doe MD Procedures No procedures Other Results Laboratory Tests Test 05/23/17 05/23/17 05/23/17 05/24/17 19:30 20:40 23:25 00:45 Prothrombin Time 10.0 SEC Prothromb Time International 0.9 RATIO Ratio Activated Partial 30.7 SEC Thromboplast Time Lactic Acid Level 1.6 mmol/L B-Type Natriuretic Peptide 33 PG/ML Magnesium Level 2.5 MG/DL Total Creatine Kinase 374 U/L Creatine Kinase MB 4.4 NG/ML Creatine Kinase MB % 1.2 % Troponin I 0.10 NG/ML Nasal Screen MRSA (PCR) MRSA NOT DETECTED Urine Color LIGHT-YELLOW Urine Turbidity CLEAR Urine pH 5.0 Urine Specific [place] 1.011 Urine Protein TRACE mg/dL Urine Glucose (UA) NEG mg/dL Urine Ketones NEG mg/dL Urine Occult Blood NEG Urine Nitrite NEG Urine Bilirubin NEG Urine Urobilinogen LESS THAN 2.0 MG/DL Urine Leukocyte Esterase NEG Urine RBC 3 /hpf Urine WBC LESS THAN 1 /hpf Urine Bacteria /hpf Urine Hyaline Casts 5 /lpf Urine Mucus FEW /lpf Microscopic Urinalysis Comment CATH-CULT NOT IND Urine Random Creatinine 85 MG/DL Urine Random Total Protein 30 MG/DL Urine Protein/Creatinine Ratio 0.35 Urine Immunofixation Test 05/25/17 05/26/17 03:11 05:37 25-Hydroxy Vitamin D Total 10.5 ng/ML Parathyroid Hormone (Intact) 124.6 PG/ML Complement C3 110 MG/DL Complement C4 32 MG/DL Hepatitis B Surface Antigen NEGATIVE Hepatitis C Antibody NEGATIVE Total Bilirubin 0.2 MG/DL Aspartate Amino Transf 17 U/L (AST/SGOT) Alanine Aminotransferase 11 U/L (ALT/SGPT) Alkaline Phosphatase 58 U/L Total Protein 6.3 GM/DL Albumin 3.33 GM/DL Albumin/Globulin Ratio 1.12 Xydxm-7-Jercosiyd 0.25 GM/DL Weztf-8-Sqzelmauh 0.66 GM/DL Beta Globulins 0.88 GM/DL Gamma Globulins 1.18 GM/DL Electrophoresis Pathologist Comment Free [place] Light Chains 46.01 mg/L Free Lambda Light Chains 51.06 mg/L Free [place]/Lambda Light Chain 0.90 Ratio White Blood Count 7.4 TH/MM3 Red Blood Count 3.51 MIL/MM3 Hemoglobin 11.0 GM/DL Hematocrit 33.7 % Mean Corpuscular Volume 96.1 FL Mean Corpuscular Hemoglobin 31.4 PG Mean Corpuscular Hemoglobin 32.7 % Concent Red Cell Distribution Width 13.9 % Platelet Count 164 TH/MM3 Mean Platelet Volume 10.1 FL Neutrophils (%) (Auto) 64.4 % Lymphocytes (%) (Auto) 22.8 % Monocytes (%) (Auto) 9.3 % Eosinophils (%) (Auto) 2.6 % Basophils (%) (Auto) 0.9 % Neutrophils # (Auto) 4.8 TH/MM3 Lymphocytes # (Auto) 1.7 TH/MM3 Monocytes # (Auto) 0.7 TH/MM3 Eosinophils # (Auto) 0.2 TH/MM3 Basophils # (Auto) 0.1 TH/MM3 CBC Comment DIFF FINAL Differential Comment Sodium Level 143 MEQ/L Potassium Level 5.2 MEQ/L Chloride Level 110 MEQ/L Carbon Dioxide Level 28.6 MEQ/L Anion Gap 4 MEQ/L Blood Urea Nitrogen 29 MG/DL Creatinine 1.31 MG/DL Estimat Glomerular Filtration 67 ML/MIN Rate Random Glucose 81 MG/DL Calcium Level 8.5 MG/DL Objective Remarks GENERAL: Morbid Obesity, no acute distress. SKIN: Warm and dry. HEAD: Atraumatic. Normocephalic. EYES: Pupils equal and round. No scleral icterus. No injection or drainage. ENT: No nasal bleeding or discharge. Mucous membranes pink and moist. NECK: Trachea midline. No JVD. CARDIOVASCULAR: Regular rate and rhythm. RESPIRATORY: No accessory muscle use. Clear to auscultation. Breath sounds equal bilaterally. GASTROINTESTINAL: Abdomen soft, non-tender, nondistended. Hepatic and splenic margins not palpable. Foster in place. MUSCULOSKELETAL: Extremities without clubbing, cyanosis, or edema. No obvious deformities. NEUROLOGICAL: Awake and alert. No obvious cranial nerve deficits. Motor grossly within normal limits. Five out of 5 muscle strength in the arms and legs. Normal speech. PSYCHIATRIC: Appropriate mood and affect; insight and judgment normal. Medications and IVs Current Medications Medications (Trade) Dose Ordered Sig/Marleny Route Start Time Stop Time Status Last Admin (NS Flush) 2 ml UNSCH PRN IVF 05/23/17 19:30 05/23/17 19:43 (Tylenol) 650 mg Q6H PRN PO 05/23/17 21:45 05/27/17 02:36 (Protonix) 40 mg DAILY PO 05/24/17 09:00 05/26/17 08:05 (Zofran Inj) 4 mg Q6H PRN IV 05/23/17 21:45 (Heparin Inj) 5,000 units Q12H SQ 05/23/17 22:00 05/26/17 21:02 Miscellaneous Information 1 Q361D XX 05/23/17 21:45 05/23/17 21:45 (Chlorhexidine 2% Cloth) 3 pack Taper DAILY@04 TOP 05/24/17 04:00 05/20/18 03:59 05/26/17 03:56 (Chlorhexidine 2% Cloth) 3 pack UNSCH PRN TOP 05/23/17 21:45 (Carmelita-Colace) 1 tab BID PO 05/24/17 09:00 05/26/17 21:01 (Senokot) 17.2 mg Q12H PRN PO 05/23/17 21:45 (Dulcolax Supp) 10 mg DAILY PRN RECTAL 05/23/17 21:45 (Lactulose Liq) 30 ml DAILY PRN PO 05/23/17 21:45 (Norvasc) 10 mg DAILY PO 05/24/17 09:00 05/26/17 08:05 (NovoLOG SUPPLEMENTAL SCALE) 1 Q6H SQ 05/24/17 01:30 05/24/17 13:30 (D50w (Syr) Inj) 50 ml UNSCH PRN IV 05/24/17 01:30 (Glucagon Inj) 1 mg UNSCH PRN OTHER 05/24/17 01:30 (Drisdol) 50,000 units Q7D PO 05/25/17 12:00 (Mucinex Er) 600 mg BID PO 05/26/17 11:15 05/26/17 21:01 (Lopressor) 25 mg Q12HR PO 05/26/17 21:00 05/26/17 21:01 A/P Assessment and Plan 1. Respiratory insufficiency probable related to COPD, Obesity hypoventilation syndrome, to continue Bronchodilator, Mucolytic, incentive spirometry, oxygen as needed. Optimized management. at this time on Room air 2. Acute kidney injury on chronic kidney disease Stage II, now improving to baseline. Nephrology specialist following asked for new BMP stat 3. Hyperkalemia improving. Nephrology following asked for new BMP 4. Morbid Obesity strongly recommended diet and exercise, PT evaluation 5. Hypertension controlled. 6. DM II continue sliding scale. Hemoglobin A1C 5.9 GI prophylaxis- On Protonix 40mg daily DVT prophylaxis- On Heparin SQ Awaiting for Physical Therapy evaluation and recommendations the patient uses Walker at home Awaiting for Nephrology specialist follow up for discharge if new BMP within normal limits. Discussed with patient and his nurse in the room Miss Javier. Discharge Planning once cleared by nephrology specialist probable later today. Valentin Chanel MD May 27, 2017 08:37
[2017-05-27 08:44] VITALS: O2SAT 95
[2017-05-27] MEDS: DOCUSATE SODIUM 50 MG/SENNA 8.6 MG TAB PO SCH (09:00)
[2017-05-27] MEDS: PANTOPRAZOLE SOD 40 MG DELAYED RELEASE TAB PO SCH (09:25)
[2017-05-27] MEDS: guaiFENesin E.R. 600 MG TAB PO SCH (09:25)
[2017-05-27] MEDS: HEPARIN SODIUM - SQ 10,000 UNITS/ML VIAL SQ SCH (09:25)
[2017-05-27] MEDS: METOPROLOL TARTRATE 25 MG TAB PO SCH (09:25)
[2017-05-27 09:40] VITALS: PULSE 70
[2017-05-27 10:24] VITALS: RESP 20
[2017-05-27 10:35] LABS: BICARBONATE 28.6 MEQ/L (21.0-32.0); POTASSIUM 4.9 MEQ/L (3.5-5.1)
[2017-05-27 10:53] LABS: BICARBONATE 26.4 MEQ/L (21.0-32.0); POTASSIUM 4.8 MEQ/L (3.5-5.1)
[2017-05-27] MEDS ORDERED: ERGO1CAP30 PO (11:06)
[2017-05-27] MEDS ORDERED: guaiFENesin ER PO (11:06)
[2017-05-27] MEDS ORDERED: METO25TA3 PO (11:06)
--- NOTE | 2017-05-27 11:08 | HHI.FF ---
Face to Face Verification Diagnosis: (1) Osteoarthritis of left knee (2) Gout (3) Dehydration (4) Btxqg-le-[id number] kidney injury (5) Morbid obesity Physical Therapy Order: Evaluate and Treat, Improve ambulation, Strength and gait training Home Health Nursing Order: Medical education Signs/symptoms of disease process Diabetic education Medication education-adverse effect Nursing assessment with vital signs I have seen patient Keshawn Roth on 05/27/17. My clinical findings support the need for the requested home health care services because: Ltd mobility - disease progression I certify that my clinical findings support that this patient is homebound because: Unsafe to leave home unassisted Valentin Chanel MD May 27, 2017 11:08
--- NOTE | 2017-05-27 11:13 | HHI.DS ---
Discharge Summary Admission Date May 23, 2017 at 21:44 Discharge Date: May 27, 2017 Admitting Diagnosis hyperkalemia, acute renal failure, hypoxia, COPD exacerbation (1) Hyperkalemia ICD Code: E87.5 Diagnosis: Principal (2) Acnkr-ro-qacicxz kidney injury ICD Code: N17.9 Diagnosis: Principal Procedures No Brief History - From Admission Morbidly obese man with SOB and CKD presents with hypoxemia and K 8.0. Creatinine normally 1.5 range, now > 3. CBC/BMP: 05/26/17 0537 05/27/17 0948 Significant Findings Laboratory Tests Test 05/23/17 05/23/17 05/23/17 05/24/17 19:30 20:40 23:25 00:45 Prothrombin Time 10.0 SEC Prothromb Time International 0.9 RATIO Ratio Activated Partial 30.7 SEC Thromboplast Time Lactic Acid Level 1.6 mmol/L B-Type Natriuretic Peptide 33 PG/ML Magnesium Level 2.5 MG/DL Total Creatine Kinase 374 U/L Creatine Kinase MB 4.4 NG/ML Creatine Kinase MB % 1.2 % Troponin I 0.10 NG/ML Nasal Screen MRSA (PCR) MRSA NOT DETECTED Urine Color LIGHT-YELLOW Urine Turbidity CLEAR Urine pH 5.0 Urine Specific [place] 1.011 Urine Protein TRACE mg/dL Urine Glucose (UA) NEG mg/dL Urine Ketones NEG mg/dL Urine Occult Blood NEG Urine Nitrite NEG Urine Bilirubin NEG Urine Urobilinogen LESS THAN 2.0 MG/DL Urine Leukocyte Esterase NEG Urine RBC 3 /hpf Urine WBC LESS THAN 1 /hpf Urine Bacteria /hpf Urine Hyaline Casts 5 /lpf Urine Mucus FEW /lpf Microscopic Urinalysis Comment CATH-CULT NOT IND Urine Random Creatinine 85 MG/DL Urine Random Total Protein 30 MG/DL Urine Protein/Creatinine Ratio 0.35 Urine Immunofixation Test 05/25/17 05/26/17 05/27/17 03:11 05:37 09:48 25-Hydroxy Vitamin D Total 10.5 ng/ML Parathyroid Hormone (Intact) 124.6 PG/ML Complement C3 110 MG/DL Complement C4 32 MG/DL Hepatitis B Surface Antigen NEGATIVE Hepatitis C Antibody NEGATIVE Total Bilirubin 0.2 MG/DL Aspartate Amino Transf 17 U/L (AST/SGOT) Alanine Aminotransferase 11 U/L (ALT/SGPT) Alkaline Phosphatase 58 U/L Total Protein 6.3 GM/DL Albumin 3.33 GM/DL Albumin/Globulin Ratio 1.12 Bivnh-6-Toatabbtd 0.25 GM/DL Pyifg-7-Vlfyphzjh 0.66 GM/DL Beta Globulins 0.88 GM/DL Gamma Globulins 1.18 GM/DL Electrophoresis Pathologist Comment Free [place] Light Chains 46.01 mg/L Free Lambda Light Chains 51.06 mg/L Free [place]/Lambda Light Chain 0.90 Ratio White Blood Count 7.4 TH/MM3 Red Blood Count 3.51 MIL/MM3 Hemoglobin 11.0 GM/DL Hematocrit 33.7 % Mean Corpuscular Volume 96.1 FL Mean Corpuscular Hemoglobin 31.4 PG Mean Corpuscular Hemoglobin 32.7 % Concent Red Cell Distribution Width 13.9 % Platelet Count 164 TH/MM3 Mean Platelet Volume 10.1 FL Neutrophils (%) (Auto) 64.4 % Lymphocytes (%) (Auto) 22.8 % Monocytes (%) (Auto) 9.3 % Eosinophils (%) (Auto) 2.6 % Basophils (%) (Auto) 0.9 % Neutrophils # (Auto) 4.8 TH/MM3 Lymphocytes # (Auto) 1.7 TH/MM3 Monocytes # (Auto) 0.7 TH/MM3 Eosinophils # (Auto) 0.2 TH/MM3 Basophils # (Auto) 0.1 TH/MM3 CBC Comment DIFF FINAL Differential Comment Sodium Level 141 MEQ/L Potassium Level 4.9 MEQ/L Chloride Level 107 MEQ/L Carbon Dioxide Level 28.6 MEQ/L Anion Gap 5 MEQ/L Blood Urea Nitrogen 25 MG/DL Creatinine 1.20 MG/DL Estimat Glomerular Filtration 74 ML/MIN Rate Random Glucose 99 MG/DL Calcium Level 8.6 MG/DL Imaging Laboratory Tests Test 05/23/17 05/23/17 05/23/17 05/24/17 19:30 20:40 23:25 00:45 Prothrombin Time 10.0 SEC Prothromb Time International 0.9 RATIO Ratio Activated Partial 30.7 SEC Thromboplast Time Lactic Acid Level 1.6 mmol/L B-Type Natriuretic Peptide 33 PG/ML Magnesium Level 2.5 MG/DL Total Creatine Kinase 374 U/L Creatine Kinase MB 4.4 NG/ML Creatine Kinase MB % 1.2 % Troponin I 0.10 NG/ML Nasal Screen MRSA (PCR) MRSA NOT DETECTED Urine Color LIGHT-YELLOW Urine Turbidity CLEAR Urine pH 5.0 Urine Specific [place] 1.011 Urine Protein TRACE mg/dL Urine Glucose (UA) NEG mg/dL Urine Ketones NEG mg/dL Urine Occult Blood NEG Urine Nitrite NEG Urine Bilirubin NEG Urine Urobilinogen LESS THAN 2.0 MG/DL Urine Leukocyte Esterase NEG Urine RBC 3 /hpf Urine WBC LESS THAN 1 /hpf Urine Bacteria /hpf Urine Hyaline Casts 5 /lpf Urine Mucus FEW /lpf Microscopic Urinalysis Comment CATH-CULT NOT IND Urine Random Creatinine 85 MG/DL Urine Random Total Protein 30 MG/DL Urine Protein/Creatinine Ratio 0.35 Urine Immunofixation Test 05/25/17 05/26/17 05/27/17 03:11 05:37 09:48 25-Hydroxy Vitamin D Total 10.5 ng/ML Parathyroid Hormone (Intact) 124.6 PG/ML Complement C3 110 MG/DL Complement C4 32 MG/DL Hepatitis B Surface Antigen NEGATIVE Hepatitis C Antibody NEGATIVE Total Bilirubin 0.2 MG/DL Aspartate Amino Transf 17 U/L (AST/SGOT) Alanine Aminotransferase 11 U/L (ALT/SGPT) Alkaline Phosphatase 58 U/L Total Protein 6.3 GM/DL Albumin 3.33 GM/DL Albumin/Globulin Ratio 1.12 Xwwag-9-Vvphniixd 0.25 GM/DL Mmctm-4-Zbiceleif 0.66 GM/DL Beta Globulins 0.88 GM/DL Gamma Globulins 1.18 GM/DL Electrophoresis Pathologist Comment Free [place] Light Chains 46.01 mg/L Free Lambda Light Chains 51.06 mg/L Free [place]/Lambda Light Chain 0.90 Ratio White Blood Count 7.4 TH/MM3 Red Blood Count 3.51 MIL/MM3 Hemoglobin 11.0 GM/DL Hematocrit 33.7 % Mean Corpuscular Volume 96.1 FL Mean Corpuscular Hemoglobin 31.4 PG Mean Corpuscular Hemoglobin 32.7 % Concent Red Cell Distribution Width 13.9 % Platelet Count 164 TH/MM3 Mean Platelet Volume 10.1 FL Neutrophils (%) (Auto) 64.4 % Lymphocytes (%) (Auto) 22.8 % Monocytes (%) (Auto) 9.3 % Eosinophils (%) (Auto) 2.6 % Basophils (%) (Auto) 0.9 % Neutrophils # (Auto) 4.8 TH/MM3 Lymphocytes # (Auto) 1.7 TH/MM3 Monocytes # (Auto) 0.7 TH/MM3 Eosinophils # (Auto) 0.2 TH/MM3 Basophils # (Auto) 0.1 TH/MM3 CBC Comment DIFF FINAL Differential Comment Sodium Level 141 MEQ/L Potassium Level 4.9 MEQ/L Chloride Level 107 MEQ/L Carbon Dioxide Level 28.6 MEQ/L Anion Gap 5 MEQ/L Blood Urea Nitrogen 25 MG/DL Creatinine 1.20 MG/DL Estimat Glomerular Filtration 74 ML/MIN Rate Random Glucose 99 MG/DL Calcium Level 8.6 MG/DL PE at Discharge GENERAL: Morbid Obesity, no acute distress. SKIN: Warm and dry. HEAD: Atraumatic. Normocephalic. EYES: Pupils equal and round. No scleral icterus. No injection or drainage. ENT: No nasal bleeding or discharge. Mucous membranes pink and moist. NECK: Trachea midline. No JVD. CARDIOVASCULAR: Regular rate and rhythm. RESPIRATORY: No accessory muscle use. Clear to auscultation. Breath sounds equal bilaterally. GASTROINTESTINAL: Abdomen soft, non-tender, nondistended. Hepatic and splenic margins not palpable. Foster in place. MUSCULOSKELETAL: Extremities without clubbing, cyanosis, or edema. No obvious deformities. NEUROLOGICAL: Awake and alert. No obvious cranial nerve deficits. Motor grossly within normal limits. Five out of 5 muscle strength in the arms and legs. Normal speech. PSYCHIATRIC: Appropriate mood and affect; insight and judgment normal. Hospital Course This is a pleasant 66 y/o Male with Hypertension, COPD, DM II, CHF, Anemia, CKD , admitted due to Acute Renal Injury most likely related to Intravascular volume depletion, the patient followed in Intensive Care unit due to Hyperkalemia secondary to Acute Renal Injury, the patient was on NSAIDs, recommended by Nephrology to continue IV fluids monitor volume status due to CHF, creatinine improving slowly, on supplemental bicarbonate due to Metabolic acidosis secondary to renal insufficiency, discontinued BRANDIE inhibitor and Aldactone due to Hyperkalemia, avoid Dialysis at this time. patient stable in his bedroom, asked to transfer patient to Medical floor but continue Telemetry, added Physical Therapy consult, may start activity , he smokes one pack of cigarettes daily, removed Foster Cath, has DM II, optimized medicines, optimized bronchodilator, Mucolytic and incentive spirometry. 05/27: asked for new BMP stat if within normal limits the patient may go home as per medicine awaiting for Nephrology specialist recommendations. seen in his bedroom, no nausea, vomit or diarrhea awaiting for PT evaluation Assessment and Plan 1. Respiratory insufficiency probable related to COPD, Obesity hypoventilation syndrome, to continue Bronchodilator, Mucolytic, incentive spirometry, oxygen as needed. Optimized management. at this time on Room air Improved. 2. Acute kidney injury on chronic kidney disease Stage II, Improved Creatinine 1.2 3. Hyperkalemia improved 4. Morbid Obesity strongly recommended diet and exercise, PT evaluation recommended home with [facility] the patient passed the Goals recommended for not to be considered Rehab patient. 5. Hypertension controlled. 6. DM II continue sliding scale. Hemoglobin A1C 5.9 continue home medicines. GI prophylaxis- On Protonix 40mg daily DVT prophylaxis- On Heparin SQ Okay to discharge now and follow with PCP in two days to continue titration of medicines. Discussed with patient and his nurse in the room Miss Javier. Discharge Planning Discharge Home on [facility] for Physical Therapy and Skilled nurse Pt Condition on Discharge: Good Discharge Disposition: Disch w/ Home Health Serv Discharge Time: > 30 minutes Discharge Instructions DIET: Follow Instructions for: Heart Healthy Diet, Diabetic Diet Activities you can perform: Regular-No Restrictions Other Activity Instructions: Follow PT recommendations, he has a Walker at home. Valentin Chanel MD May 27, 2017 11:13
== END 2017-05-27 16:46 | disposition home health service (06) | DRG 683 ==
LOC: NEPC 19:15 → NEDA 21:44 → HIMW 23:15 → N05A 05-26 14:50
PROVIDERS: ADMIT Internal Medicine; ATTEND Internal Medicine
PROC: 5A09357 Assistance with Respiratory Ventilation, Less than 24 Consecutive Hours, Continuous Positive Airway Pressure (ICD-10-PCS; principal; 2017-05-23)
DX: N17.9 Acute kidney failure, unspecified (principal); E87.2 Acidosis; I13.0 Hypertensive heart and chronic kidney disease with heart failure and stage 1 through stage 4 chronic kidney disease, or unspecified chronic kidney disease; I50.9 Heart failure, unspecified; E11.21 Type 2 diabetes mellitus with diabetic nephropathy; E66.2 Morbid (severe) obesity with alveolar hypoventilation; E87.5 Hyperkalemia; R06.89 Other abnormalities of breathing; N18.3 Chronic kidney disease, stage 3 (moderate); M19.90 Unspecified osteoarthritis, unspecified site; M10.9 Gout, unspecified; E11.22 Type 2 diabetes mellitus with diabetic chronic kidney disease; E11.65 Type 2 diabetes mellitus with hyperglycemia; Z85.46 Personal history of malignant neoplasm of prostate; Z92.3 Personal history of irradiation; F17.210 Nicotine dependence, cigarettes, uncomplicated; N25.81 Secondary hyperparathyroidism of renal origin; E55.9 Vitamin D deficiency, unspecified
CPT/HCPCS: 71010; 76775; 80048; 80053; 81001; 82306; 82550; 82552; 82570; 82948; 83605; 83735; 83880; 83883; 83970; 84132; 84156; 84165; 84484; 85025; 85610; 85730; 86160; 86335; 86803; 87040; 87340; 87641; 93005; 94002; 94150; 94640; 94664; 96374; 96375; J0610; J1644; J1815; J1940; J2930; J7030; J7611; J7613

== ENCOUNTER 2017-09-25 16:41 | Emergency (ER) | payer MEDICARE, OTHER ==
[~2017-09-25] VITALS: Ht 185.4 cm; Wt 150.0 kg
[~2017-09-25 16:41] MED LIST changes: -ACET325T PO; -CIPR-9 PO; -COLA100C3 PO; -FURO1TAB60 PO; -HEPA10003 SQ; -HYDR50TA15 PO; -LANTUS2P SQ; -LISI-515 PO; +METO25TA3 PO; -MILKSUS PO; -NICO21DI2 T-DERMAL; -PRED20 PO; -SPIR25TA PO; -TOPR100T PO; +VITA500012 PO; +guaiFENesin ER PO
[2017-09-25 16:59] VITALS: BP 135/70; PULSE 70; RESP 20; TEMP 98.1; O2SAT 99
[2017-09-25] MEDS ORDERED: SODIUM CHLORIDE 0.9% FLUSH 10 ML FLUSH IVF PRN (17:00)
--- NOTE | 2017-09-25 17:32 | RADRPT ---
EXAM DATE/TIME: 09/25/2017 17:00 [facility] COMPARISON: CHEST SINGLE AP, May 23, 2017, 19:45. INDICATIONS : Midline chest pain and shortness of breath. MEDICAL HISTORY : Diabetes mellitus type II. Congestive heart failure. Hypertension. Chronic obstructive pulmonar y disease. SURGICAL HISTORY : None. ENCOUNTER: Initial ACUITY: 2 days PAIN SCORE: 5/10 LOCATION: Chest, midline. FINDINGS: Large body habitus. A single view of the chest demonstrates the lungs to be symmetrically aerated wi thout evidence of mass, infiltrate or effusion. The heart is prominent, probably upper limits normal for AP view. Osseous structures are intact. CONCLUSION: The lungs are clear. Federico Ocampo MD on September 25, 2017 at 17:29 Board Certified Radiologist. This report was verified electronically.
[2017-09-25 17:33] VITALS: BP 160/78; PULSE 68; RESP 22; O2SAT 97
[2017-09-25] MEDS ORDERED: methylPREDNISolone SOD SUCC 125 MG/2 ML VIAL IV PUSH ONE (17:45)
[2017-09-25 17:58] LABS: BILIRUBIN, URINE NEG (NEG); BLOOD, URINE NEG (NEG); GLUCOSE,URINE NEG (NEG); KETONE, URINE NEG (NEG); MUCUS URINE FEW /lpf (OCC); NITRITE,URINE NEG (NEG); PH, URINE 5.5 (5.0-8.5); URINE COLOR LIGHT-YELLOW (YELLW/STRAW); URINE LEUKOCYTE ESTERASE NEG (NEG)
[2017-09-25] MEDS: RESP: ALBUTEROL 2.5 MG/IPRATROPIUM 0.5 MG NEB (SCH) INH ×2 (18:04→18:05)
[2017-09-25 18:09] LABS: AUTOMATED NEUTROPHIL # 4.4 TH/MM3 (1.8-7.7); BASOPHIL # 0.1 TH/MM3 (0-0.2); BASOPHIL % 1.3 % (0.0-2.0); EOSINOPHIL # 0.2 TH/MM3 (0-0.4); EOSINOPHIL % 2.2 % (0.0-4.0); HEMATOCRIT 36.4 % (39.0-51.0); HEMOGLOBIN 11.7 GM/DL (13.0-17.0); LYMPH % 23.7 % (9.0-44.0); LYMPHOCYTE # 1.7 TH/MM3 (1.0-4.8); MEAN CELL VOLUME 100.2 FL (80.0-100.0); MEAN CORPUSCULAR HEMOGLOBIN 32.3 PG (27.0-34.0); MEAN CORPUSCULAR HGB CONC 32.3 % (32.0-36.0); MONO % 10.3 % (0.0-8.0); MONOCYTE # 0.7 TH/MM3 (0-0.9); NEUT % 62.5 % (16.0-70.0); PLATELET COUNT 121 TH/MM3 (150-450); RED BLOOD COUNT 3.63 MIL/MM3 (4.50-5.90); RED CELL DISTRIBUTION WIDTH 16.2 % (11.6-17.2)
[2017-09-25 18:17] LABS: PROTHROMBIN TIME - PATIENT 11.1 SEC (9.8-11.6)
[2017-09-25 18:42] LABS: ALBUMIN 3.5 GM/DL (3.4-5.0); ALT (GPT) 12 U/L (12-78); AST (GOT) 21 U/L (15-37); BICARBONATE 26.7 MEQ/L (21.0-32.0); BLOOD UREA NITROGEN 38 MG/DL (7-18); CALCIUM 8.2 MG/DL (8.5-10.1); CHLORIDE 114 MEQ/L (98-107); CREATININE 1.55 MG/DL (0.60-1.30); GLOMERULAR FILTRATION RATE 55 ML/MIN (>89); GLUCOSE,RANDOM 82 MG/DL (74-106); SODIUM (NA) 144 MEQ/L (136-145)
[2017-09-25 18:46] LABS: ALKALINE PHOSPHATASE 97 U/L (45-117); TOTAL BILIRUBIN ADULT 0.6 MG/DL (0.2-1.0); TOTAL PROTEIN 7.4 GM/DL (6.4-8.2); TROPONIN I 0.02 NG/ML (0.02-0.05)
--- NOTE | 2017-09-25 18:50 | PD ---
HPI Chief Complaint: Respiratory Distress Time Seen by Provider: 16:55 Travel History International Travel<30 days: No Contact w/Intl Traveler<30days: No Traveled to known affect area: No History of Present Illness HPI 67-year-old male with PMH of COPD, prostatic CA presents to the ED for evaluation of 3 day history of worsening nonproductive cough, shortness of breath and wheezing. Patient denies fever, chills, chest pain, palpitations, diaphoresis, nausea, vomiting, abdominal pain. He endorses normal bowel movement today. He denies dysuria, hematuria, back pain. Endorses chronic swelling in the legs, no worse today. Also complains of painful swelling in the testicles 2 days. Denies penile discharge or open sores. He states that he was treating with his rescue inhaler but states that he ran out 2 or 3 days ago. Primary care is Dr. Rios. [facility] Past Medical History Arthritis: Yes Asthma: No Cancer: Yes (PROSTATE 5 YEARS AGO ) Cardiovascular Problems: Yes Chest Pain: Yes Congestive Heart Failure: Yes COPD: Yes Diabetes: Yes Patient Takes Glucophage: Yes Diminished Hearing: No Endocrine: Yes Gastrointestinal Disorders: Yes (MORBID OBESITY) Gout: Yes Genitourinary: Yes Hypertension: Yes Immune Disorder: No Musculoskeletal: Yes Neurologic: No Psychiatric: No Reproductive: No Respiratory: Yes Radiation Therapy: Yes Sleep Apnea: Yes Tetanus Vaccination: > 5 Years Influenza Vaccination: Yes Past Surgical History Other Surgery: Yes (RT HAND) Social History Alcohol Use: No Tobacco Use: Yes (1 PPD) Substance Use: No Allergies-Medications (Allergen,Severity, Reaction): Coded Allergies: *MDRO Multi-Drug Resistant Organism (Verified Adverse Reaction, Unknown, ) MRSA (wounds) - 03/20/13 MRSA PCR Screen NEGATIVE - 03/19/16, 03/21/2016 CLEARED PER INFECTION CONTROL Reported Meds & Prescriptions Reported Meds & Active Scripts Active Prednisone 20 Mg Tab 40 Mg PO DAILY Take 40 mg (2 tablets) daily for 5 days Proair Hfa 8.5 GM Inh (Albuterol Sulfate) 90 Mcg/Act Aer 2 Puff INH Q6H PRN 108 mcg/actuation [guaiFENesin ER] 600 MG Tabcr 600 Mg PO BID Metoprolol Tartrate 25 Mg Tab 25 Mg PO Q12HR Ergocalciferol 50,000 Unit Cap 50,000 Units PO Q7D Symbicort Inh (Budesonide/Formoterol Fumarate) 160-4.5 Mcg/Act Aero 1 Puff INH Q12HR Reported Amlodipine (Amlodipine Besylate) 10 Mg Tab 10 Mg PO DAILY Ventolin Hfa 18 GM Inh (Albuterol Sulfate) 90 Mcg/Act Aer 2 Puff INH Q6H PRN Omeprazole 40 Mg Cap 40 Mg PO DAILY Metformin (Metformin HCl) 1,000 Mg Tab 1,000 Mg PO BID With meals Review of Systems Except as stated in HPI: all other systems reviewed are Neg Physical Exam Narrative GENERAL: [place] nourished well-developed black male in no acute distress. SKIN: Focused skin assessment warm/dry. Chronic skin changes on the bilateral lower extremities. HEAD: Normocephalic. EYES: No scleral icterus. No injection or drainage. NECK: Supple, trachea midline. No JVD or lymphadenopathy. CARDIOVASCULAR: Regular rate and rhythm without murmurs, gallops, or rubs. RESPIRATORY: Tight breath sounds with wheezing bilaterally. No accessory muscle use. GASTROINTESTINAL: Abdomen protuberant, soft, non-tender, nondistended. Active bowel sounds. GENITOURINARY: Circumcised. Testes descended bilaterally without evidence of rotation. No lesions or erythema. No urethral discharge. Cremasteric reflex intact. Tender to palpation of the scrotum bilaterally. MUSCULOSKELETAL: No cyanosis. Bilateral lower extremities wrapped to the knees. BACK: Nontender without obvious deformity. No CVA tenderness. Data Data Last Documented VS Vital Signs Date Time Temp Pulse Resp B/P (MAP) Pulse Ox O2 Delivery O2 Flow Rate FiO2 09/25/17 21:28 09/25/17 19:13 69 18 98 Nasal Cannula 2.00 09/25/17 16:59 98.1 Orders Orders Complete Blood Count With Diff (09/25/17 16:53) Comprehensive Metabolic Panel (09/25/17 16:53) B-Type Natriuretic Peptide (09/25/17 16:53) Act Partial Throm Time (Ptt) (09/25/17 16:53) Prothrombin Time / Inr (Pt) (09/25/17 16:53) Ckmb (Isoenzyme) Profile (09/25/17 16:53) Troponin I (09/25/17 16:53) Urinalysis - C+S If Indicated (09/25/17 16:53) Iv Access Insert/Monitor (09/25/17 16:53) Electrocardiogram (09/25/17 16:53) Ecg Monitoring (09/25/17 16:53) Oximetry (09/25/17 16:53) Chest, Single Ap (09/25/17 16:53) Sodium Chloride 0.9% Flush (Ns Flush) (09/25/17 17:00) Methylprednisolone So Succ Inj (Solumedr (09/25/17 17:45) Albuterol-Ipratropium Neb (Duoneb Neb) (09/25/17 17:45) CKMB (09/25/17 17:30) CKMB% (09/25/17 17:30) Us Testicles W Doppler (09/25/17 ) Ed Discharge Order (09/25/17 20:35) Labs Laboratory Tests Test 09/25/17 17:05 09/25/17 17:30 Urine Color LIGHT-YELLOW Urine Turbidity CLEAR Urine pH 5.5 Urine Specific [place] 1.009 Urine Protein 30 mg/dL Urine Glucose (UA) NEG mg/dL Urine Ketones NEG mg/dL Urine Occult Blood NEG Urine Nitrite NEG Urine Bilirubin NEG Urine Urobilinogen LESS THAN 2.0 MG/DL Urine Leukocyte Esterase NEG Urine WBC 2 /hpf Urine Mucus FEW /lpf Microscopic Urinalysis Comment CULT NOT INDICATED White Blood Count 7.0 TH/MM3 Red Blood Count 3.63 MIL/MM3 Hemoglobin 11.7 GM/DL Hematocrit 36.4 % Mean Corpuscular Volume 100.2 FL Mean Corpuscular Hemoglobin 32.3 PG Mean Corpuscular Hemoglobin Concent 32.3 % Red Cell Distribution Width 16.2 % Platelet Count 121 TH/MM3 Mean Platelet Volume 10.0 FL Neutrophils (%) (Auto) 62.5 % Lymphocytes (%) (Auto) 23.7 % Monocytes (%) (Auto) 10.3 % Eosinophils (%) (Auto) 2.2 % Basophils (%) (Auto) 1.3 % Neutrophils # (Auto) 4.4 TH/MM3 Lymphocytes # (Auto) 1.7 TH/MM3 Monocytes # (Auto) 0.7 TH/MM3 Eosinophils # (Auto) 0.2 TH/MM3 Basophils # (Auto) 0.1 TH/MM3 CBC Comment DIFF FINAL Differential Comment Prothrombin Time 11.1 SEC Prothromb Time International Ratio 1.0 RATIO Activated Partial Thromboplast Time 26.9 SEC Blood Urea Nitrogen 38 MG/DL Creatinine 1.55 MG/DL Random Glucose 82 MG/DL Total Protein 7.4 GM/DL Albumin 3.5 GM/DL Calcium Level 8.2 MG/DL Alkaline Phosphatase 97 U/L Aspartate Amino Transf (AST/SGOT) 21 U/L Alanine Aminotransferase (ALT/SGPT) 12 U/L Total Bilirubin 0.6 MG/DL Sodium Level 144 MEQ/L Potassium Level 4.5 MEQ/L Chloride Level 114 MEQ/L Carbon Dioxide Level 26.7 MEQ/L Anion Gap 3 MEQ/L Estimat Glomerular Filtration Rate 55 ML/MIN Total Creatine Kinase 229 U/L Creatine Kinase MB 4.2 NG/ML Troponin I 0.02 NG/ML B-Type Natriuretic Peptide 473 PG/ML [facility] Medical Decision Making Medical Screen Exam Complete: Yes Emergency Medical Condition: Yes Differential Diagnosis COPD exacerbation versus PNA versus edema versus testicular torsion versus other Narrative Course 67-year-old male with PMH of COPD, prostatic CA presents to the ED for evaluation of 3 day history of worsening nonproductive cough, shortness of breath and wheezing. Patient denies fever, chills, chest pain, palpitations, diaphoresis, nausea, vomiting, abdominal pain, hematuria, back pain. Endorses chronic swelling in the legs, no worse today. Also complains of painful swelling in the testicles 2 days. Denies dysuria, penile discharge or open sores. Primary care is Dr. Rios. Vitals reviewed. Physical exam reveals an obese black male in no acute distress. Tight breath sounds and wheezing bilaterally. Abdomen soft, nontender. exam reveals a tender scrotum without signs of abrasion or epididymal tenderness. There are chronic skin changes of the bilateral lower extremities and the patient has compression wraps to the knee bilaterally. IV was established. Patient was administered 125 mg Solu-Medrol and DuoNeb 3. EKG rate 68, sinus rhythm with occasional PVCs. ND interval 197, QRS 89, QTC 424. Normal axis no ST elevations. Reviewed by Dr. Leos CXR: Lungs are clear. Etiology read. Troponin negative 1. CBC: WBC 7.0. Hemoglobin 11.7. Coags INR 1.0. CMP: BUN 38, creatinine 1.55, chronic per chart review. BNP 473. US testicles: Scrotal wall thickening, small moderate hydroceles, positive blood flow without mass. Radiology read. I discussed the results of the workup with the patient. He reports improvement of his breathing symptoms. Dr. Hill examined the patient and he suspects that the patient's scrotal pain is secondary to edema. He is provided with a short course of prednisone, refilled his HFA inhaler. He is instructed to follow-up with his primary care provider and urologist. He indicated understanding of the instructions and is agreeable to the care plan. The patient is stable and discharged home. Diagnosis Primary Impression: COPD exacerbation Additional Impression: Scrotal edema Referrals: Primary Care Physician Patient Instructions: COPD (Chronic Obstructive Pulmonary Disease) (ED), General Instructions Additional Instructions: Rest, hydrate. Return to normal, gentle activities as tolerated. Take prednisone as prescribed. Resume use of rescue inhaler as prescribed. Follow-up with your primary care provider this week Return to the ED for any urgent or emergent medical condition. Med/Other Pt SpecificInfo: Prescription(s) given Scripts Prednisone (Prednisone) 20 Mg Tab 40 MG PO DAILY, #10 TAB 0 Refills Take 40 mg (2 tablets) daily for 5 days Prov: Shelbie Leos MD 09/25/17 Albuterol 8.5 GM Inh (Proair Hfa 8.5 GM Inh) 90 Mcg/Act Aer 2 PUFF INH Q6H Y for SHORTNESS OF BREATH, #1 INHALER 0 Refills 108 mcg/actuation Prov: Shelbie Leos MD 09/25/17 Disposition: 01 DISCHARGE HOME Condition: Stable Ondina Christianson Sep 25, 2017 18:50
[2017-09-25 19:13] VITALS: BP 175/108; PULSE 69; RESP 18; O2SAT 98
--- NOTE | 2017-09-25 19:19 | RADRPT ---
EXAM DATE/TIME: 09/25/2017 18:24 [facility] COMPARISON: No previous studies available for comparison. INDICATIONS : Testicular pain. MEDICAL HISTORY : Hypertension. Congestive heart failure. Morbid obesity. COPD. Carcinoma, prostate. SURGICAL HISTORY : Right hand carpal tunnel surgery. ENCOUNTER: Initial ACUITY: 1 day PAIN SCORE: 6/10 LOCATION: Bilateral testicles. MEASUREMENTS: RIGHT TESTICLE: 3.8 x 2.7 x 2.8cm LEFT TESTICLE: 3.9 x 2.7 x 2.8cm FINDINGS: There is marked scrotal wall thickening measuring up to 1.9 cm on the right and 2.2 cm on the left. M oderate hydroceles. No solid testicular mass. Positive testicular blood flow. Small right epididymal cyst. Left epididymis is unremarkable. CONCLUSION: 1. Marked scrotal wall thickening. 2. Small to moderate hydroceles. 3. Positive testicular blood flow without mass. Jose Landry MD on September 25, 2017 at 19:15 Board Certified Radiologist. This report was verified electronically.
[2017-09-25] MEDS ORDERED: PRED20 PO (20:35)
[2017-09-25] MEDS ORDERED: ALBUAER3 INH (20:35)
--- NOTE | 2017-09-25 20:36 | PD ---
Data Data Last Documented VS Vital Signs Date Time Temp Pulse Resp B/P (MAP) Pulse Ox O2 Delivery O2 Flow Rate FiO2 09/25/17 19:13 69 18 175/108 (130) 98 Nasal Cannula 2.00 09/25/17 16:59 98.1 Orders Orders Complete Blood Count With Diff (09/25/17 16:53) Comprehensive Metabolic Panel (09/25/17 16:53) B-Type Natriuretic Peptide (09/25/17 16:53) Act Partial Throm Time (Ptt) (09/25/17 16:53) Prothrombin Time / Inr (Pt) (09/25/17 16:53) Ckmb (Isoenzyme) Profile (09/25/17 16:53) Troponin I (09/25/17 16:53) Urinalysis - C+S If Indicated (09/25/17 16:53) Iv Access Insert/Monitor (09/25/17 16:53) Electrocardiogram (09/25/17 16:53) Ecg Monitoring (09/25/17 16:53) Oximetry (09/25/17 16:53) Chest, Single Ap (09/25/17 16:53) Sodium Chloride 0.9% Flush (Ns Flush) (09/25/17 17:00) Methylprednisolone So Succ Inj (Solumedr (09/25/17 17:45) Albuterol-Ipratropium Neb (Duoneb Neb) (09/25/17 17:45) CKMB (09/25/17 17:30) CKMB% (09/25/17 17:30) Us Testicles W Doppler (09/25/17 ) Labs Laboratory Tests Test 09/25/17 17:05 09/25/17 17:30 Urine Color LIGHT-YELLOW Urine Turbidity CLEAR Urine pH 5.5 Urine Specific [place] 1.009 Urine Protein 30 mg/dL Urine Glucose (UA) NEG mg/dL Urine Ketones NEG mg/dL Urine Occult Blood NEG Urine Nitrite NEG Urine Bilirubin NEG Urine Urobilinogen LESS THAN 2.0 MG/DL Urine Leukocyte Esterase NEG Urine WBC 2 /hpf Urine Mucus FEW /lpf Microscopic Urinalysis Comment CULT NOT INDICATED White Blood Count 7.0 TH/MM3 Red Blood Count 3.63 MIL/MM3 Hemoglobin 11.7 GM/DL Hematocrit 36.4 % Mean Corpuscular Volume 100.2 FL Mean Corpuscular Hemoglobin 32.3 PG Mean Corpuscular Hemoglobin Concent 32.3 % Red Cell Distribution Width 16.2 % Platelet Count 121 TH/MM3 Mean Platelet Volume 10.0 FL Neutrophils (%) (Auto) 62.5 % Lymphocytes (%) (Auto) 23.7 % Monocytes (%) (Auto) 10.3 % Eosinophils (%) (Auto) 2.2 % Basophils (%) (Auto) 1.3 % Neutrophils # (Auto) 4.4 TH/MM3 Lymphocytes # (Auto) 1.7 TH/MM3 Monocytes # (Auto) 0.7 TH/MM3 Eosinophils # (Auto) 0.2 TH/MM3 Basophils # (Auto) 0.1 TH/MM3 CBC Comment DIFF FINAL Differential Comment Prothrombin Time 11.1 SEC Prothromb Time International Ratio 1.0 RATIO Activated Partial Thromboplast Time 26.9 SEC Blood Urea Nitrogen 38 MG/DL Creatinine 1.55 MG/DL Random Glucose 82 MG/DL Total Protein 7.4 GM/DL Albumin 3.5 GM/DL Calcium Level 8.2 MG/DL Alkaline Phosphatase 97 U/L Aspartate Amino Transf (AST/SGOT) 21 U/L Alanine Aminotransferase (ALT/SGPT) 12 U/L Total Bilirubin 0.6 MG/DL Sodium Level 144 MEQ/L Potassium Level 4.5 MEQ/L Chloride Level 114 MEQ/L Carbon Dioxide Level 26.7 MEQ/L Anion Gap 3 MEQ/L Estimat Glomerular Filtration Rate 55 ML/MIN Total Creatine Kinase 229 U/L Creatine Kinase MB 4.2 NG/ML Troponin I 0.02 NG/ML B-Type Natriuretic Peptide 473 PG/ML [facility] Supervised Visit with BIRDIE: Yes Narrative Course The history, exam, and medical decision-making in the associated mid-level provider note were completed with my assistance. I reviewed and agree with the findings presented. I attest that I had a [id number] encounter with the patient on the same day, and personally performed and documented my assessment and findings in the medical record. *My assessment and Findings: 67-year-old male with history of COPD presents with cough congestion and COPD symptoms. He has chronic lower extremity edema in his legs are wrapped. The are wrapped at home. Also some testicular pain. Is no obvious scrotal edema. Patient is very obese. There is no evidence of infection or cellulitis. This point recommend treatment for COPD exacerbation. Maikel Case MD Sep 25, 2017 20:36
--- NOTE | 2017-09-27 21:10 | EKG ---
Date Performed: 09/25/2017 Time Performed: 17:49:52 PTAGE: 67 years EKG: Sinus rhythm WITH OCCASIONAL SUPRAVENTRICULAR PREMATURE COMPLEXES LOW QRS VOLTAGE INFERIOR MYOCARDIAL INFARCTION ABNORMAL ECG PREVIOUS TRACING : 05/23/2017 19.31 DOCTOR: Allen Sutton Interpretating Date/Time 09/27/2017 21:00:44
== END 2017-09-25 21:29 | disposition home or self-care (01) ==
LOC: NEPE 16:41
DX: J44.1 Chronic obstructive pulmonary disease with (acute) exacerbation (principal); N50.89 Other specified disorders of the male genital organs; R22.43 Localized swelling, mass and lump, lower limb, bilateral; N50.819 Testicular pain, unspecified; R94.31 Abnormal electrocardiogram [ECG] [EKG]; E11.9 Type 2 diabetes mellitus without complications; I10 Essential (primary) hypertension; G47.30 Sleep apnea, unspecified; E66.01 Morbid (severe) obesity due to excess calories; F17.200 Nicotine dependence, unspecified, uncomplicated; Z79.84 Long term (current) use of oral hypoglycemic drugs; Z87.09 Personal history of other diseases of the respiratory system; Z85.46 Personal history of malignant neoplasm of prostate; Z87.39 Personal history of other diseases of the musculoskeletal system and connective tissue; Z86.79 Personal history of other diseases of the circulatory system; Z87.19 Personal history of other diseases of the digestive system; Z87.448 Personal history of other diseases of urinary system
CPT/HCPCS: 71010; 76870; 80053; 81001; 82550; 82552; 83880; 84484; 85025; 85610; 85730; 93005; 93975; 94664; 96374; 99285; J2930

== ENCOUNTER 2017-09-28 14:32 | Inpatient (IN) | payer OTHER, MEDICARE ==
[~2017-09-28] VITALS: Ht 185.4 cm; Wt 192.5 kg
[~2017-09-28 14:32] MED LIST changes: +ALBUAER3 INH; +PRED20 PO
[2017-09-28 14:58] VITALS: BP 157/77; PULSE 58; RESP 22; TEMP 97.9; O2SAT 94
[2017-09-28] MEDS ORDERED: SODIUM CHLORIDE 0.9% FLUSH 10 ML FLUSH IVF PRN (15:15)
[2017-09-28] MEDS ORDERED: BUMETANIDE INJ 1 MG/4 ML VIAL IV PUSH ONE (15:45)
--- NOTE | 2017-09-28 16:01 | PD ---
HPI Chief Complaint: Edema Time Seen by Provider: 15:11 Travel History International Travel<30 days: No Contact w/Intl Traveler<30days: No Traveled to known affect area: No History of Present Illness HPI This is a 67-year-old male with a history of hypertension, chronic peripheral edema, renal insufficiency/disease, who presents today with worsening swelling to his legs and scrotum. Patient reports his scrotum is swollen to the size of a grapefruit. He reports difficulty urinating secondary to this edema. He denies any fevers, chills. He denies any nausea vomiting. He denies any drainage from the edematous scrotum. She also reports intermittent chest pain and shortness of breath. When asked about the chest pain, patient states he had some on his way and however this has resolved. He reports it as a tightness across his precordium. There are no other complaints at the time of my examination. PFSH Past Medical History Arthritis: Yes Asthma: No Cancer: Yes (PROSTATE 5 YEARS AGO ) Cardiovascular Problems: Yes Chest Pain: Yes Congestive Heart Failure: Yes COPD: Yes Diabetes: Yes Patient Takes Glucophage: No Diminished Hearing: No Endocrine: Yes Gastrointestinal Disorders: Yes (MORBID OBESITY) Gout: Yes Genitourinary: Yes Hypertension: Yes Immune Disorder: No Musculoskeletal: Yes Neurologic: No Psychiatric: No Reproductive: No Respiratory: Yes (COPD) Radiation Therapy: Yes Sleep Apnea: Yes Past Surgical History Other Surgery: Yes (RT HAND) Social History Alcohol Use: No Tobacco Use: Yes (1 PPD) Substance Use: No Allergies-Medications (Allergen,Severity, Reaction): Coded Allergies: *MDRO Multi-Drug Resistant Organism (Verified Adverse Reaction, Unknown, ) MRSA (wounds) - 03/20/13 MRSA PCR Screen NEGATIVE - 03/19/16, 03/21/2016 CLEARED PER INFECTION CONTROL Reported Meds & Prescriptions Reported Meds & Active Scripts Active Prednisone 20 Mg Tab 40 Mg PO DAILY Take 40 mg (2 tablets) daily for 5 days Proair Hfa 8.5 GM Inh (Albuterol Sulfate) 90 Mcg/Act Aer 2 Puff INH Q6H PRN 108 mcg/actuation [guaiFENesin ER] 600 MG Tabcr 600 Mg PO BID Metoprolol Tartrate 25 Mg Tab 25 Mg PO Q12HR Ergocalciferol 50,000 Unit Cap 50,000 Units PO Q7D Symbicort Inh (Budesonide/Formoterol Fumarate) 160-4.5 Mcg/Act Aero 1 Puff INH Q12HR Reported Amlodipine (Amlodipine Besylate) 10 Mg Tab 10 Mg PO DAILY Ventolin Hfa 18 GM Inh (Albuterol Sulfate) 90 Mcg/Act Aer 2 Puff INH Q6H PRN Omeprazole 40 Mg Cap 40 Mg PO DAILY Review of Systems Except as stated in HPI: all other systems reviewed are Neg HENT: No: Headaches, Lightheadedness, Neck Pain Cardiovascular: Positive: Chest Pain or Discomfort (written tightness. He describes it as a 4-5 on the pain scale), Edema (worsening edema to legs and scrotum), No: Palpitations Respiratory: Positive: Shortness of Breath, No: Cough Gastrointestinal: No: Nausea, Vomiting Genitourinary: Positive: Other (difficulty urinating secondary to the scrotal edema) Musculoskeletal: Positive: Weakness (worsening generalized), Edema (or spleen bilateral lower extremity) Neurologic: Positive: Weakness (generalized), Headache Physical Exam Narrative GENERAL: Obese gentleman in mild respiratory discomfort. SKIN: Focused skin assessment warm/dry. HEAD: Atraumatic. Normocephalic. EYES: No scleral icterus. No injection or drainage. ENT: No nasal bleeding or discharge. Mucous membranes pink and moist. NECK: Trachea midline. Supple CARDIOVASCULAR: Regular rate and rhythm. No murmur appreciated. RESPIRATORY: Breath sounds equal bilaterally. Decreased breath sounds secondary to the patient's habitus. No obvious Rales or rhonchi appreciated. GASTROINTESTINAL: Abdomen soft, obese, nontender. GENITOURINARY: Patient's scrotum distended to near volleyball size. Unable to evaluate the penis secondary to it being inverted in the scrotal swelling. No obvious drainage noted. MUSCULOSKELETAL: 4+ edema with chronic venous stasis changes to the bilateral lower extremities. Wound dressings were removed which show chronic scaly skin with serous drainage in the skin scaly area. NEUROLOGICAL: Awake and alert. No obvious cranial nerve deficits. Motor grossly within normal limits. Normal speech. PSYCHIATRIC: Appropriate mood and affect; insight and judgment normal. Data Data Last Documented VS Vital Signs Date Time Temp Pulse Resp B/P (MAP) Pulse Ox O2 Delivery O2 Flow Rate FiO2 09/28/17 16:30 96 Nasal Cannula 2.00 09/28/17 14:58 97.9 58 22 157/77 (103) Orders Orders Complete Blood Count With Diff (09/28/17 15:11) Comprehensive Metabolic Panel (09/28/17 15:11) B-Type Natriuretic Peptide (09/28/17 15:11) Ckmb (Isoenzyme) Profile (09/28/17 15:11) Troponin I (09/28/17 15:11) Urinalysis - C+S If Indicated (09/28/17 15:11) Iv Access Insert/Monitor (09/28/17 15:11) Electrocardiogram (09/28/17 15:11) Ecg Monitoring (09/28/17 15:11) Oximetry (09/28/17 15:11) Oxygen Administration (09/28/17 15:11) Chest, Single Ap (09/28/17 15:11) Sodium Chloride 0.9% Flush (Ns Flush) (09/28/17 15:15) Bumetanide Inj (Bumex Inj) (09/28/17 15:45) CKMB (09/28/17 15:30) CKMB% (09/28/17 15:30) Admit To Inpatient (09/28/17 ) Vital Signs (Adult) Q4H (09/28/17 17:42) Activity Oob With Assistance (09/28/17 17:42) Sodium Chloride 0.9% Flush (Ns Flush) (09/28/17 17:45) Sodium Chloride 0.9% Flush (Ns Flush) (09/28/17 21:00) Acetaminophen (Tylenol) (09/28/17 17:45) Ondansetron Inj (Zofran Inj) (09/28/17 17:45) Basic Metabolic Panel (Bmp) (09/29/17 06:00) Complete Blood Count With Diff (09/29/17 06:00) Resp Oxygen Mik C Titrat 1-4 L (09/28/17 ) Heparin Inj (Heparin Inj) (09/28/17 18:00) Naloxone Inj (Narcan Inj) (09/28/17 17:45) Magnesium Hydroxide Liq (Milk Of Magnesi (09/28/17 17:45) Sennosides (Senokot) (09/28/17 17:45) Bisacodyl Supp (Dulcolax Supp) (09/28/17 17:45) Lactulose Liq (Lactulose Liq) (09/28/17 17:45) Inpatient Certification (09/28/17 ) Bumetanide Inj (Bumex Inj) (09/28/17 18:00) Metolazone (Zaroxolyn) (09/29/17 09:00) Admit Order (Ed Use Only) (09/28/17 17:55) Labs Laboratory Tests Test 09/28/17 15:30 White Blood Count 7.1 TH/MM3 Red Blood Count 3.54 MIL/MM3 Hemoglobin 11.1 GM/DL Hematocrit 35.3 % Mean Corpuscular Volume 99.6 FL Mean Corpuscular Hemoglobin 31.4 PG Mean Corpuscular Hemoglobin Concent 31.6 % Red Cell Distribution Width 16.3 % Platelet Count 126 TH/MM3 Mean Platelet Volume 11.2 FL Neutrophils (%) (Auto) 68.3 % Lymphocytes (%) (Auto) 18.5 % Monocytes (%) (Auto) 10.2 % Eosinophils (%) (Auto) 2.3 % Basophils (%) (Auto) 0.7 % Neutrophils # (Auto) 4.9 TH/MM3 Lymphocytes # (Auto) 1.3 TH/MM3 Monocytes # (Auto) 0.7 TH/MM3 Eosinophils # (Auto) 0.2 TH/MM3 Basophils # (Auto) 0.0 TH/MM3 CBC Comment DIFF FINAL Differential Comment Blood Urea Nitrogen 40 MG/DL Creatinine 1.49 MG/DL Random Glucose 97 MG/DL Total Protein 7.0 GM/DL Albumin 3.1 GM/DL Calcium Level 8.2 MG/DL Alkaline Phosphatase 82 U/L Aspartate Amino Transf (AST/SGOT) 37 U/L Alanine Aminotransferase (ALT/SGPT) 13 U/L Total Bilirubin 0.6 MG/DL Sodium Level 145 MEQ/L Potassium Level 5.6 MEQ/L Chloride Level 116 MEQ/L Carbon Dioxide Level 24.3 MEQ/L Anion Gap 5 MEQ/L Estimat Glomerular Filtration Rate 57 ML/MIN Total Creatine Kinase 315 U/L Creatine Kinase MB 3.3 NG/ML Creatine Kinase MB % 1.0 % Troponin I 0.03 NG/ML B-Type Natriuretic Peptide 523 PG/ML [facility]DM Medical Decision Making Medical Screen Exam Complete: Yes Emergency Medical Condition: Yes Differential Diagnosis Acute on chronic renal failure versus anasarca versus CHF versus scrotal edema Narrative Course 67-year-old male who presents today with complaints of worsening swelling to his legs and scrotal edema. The patient also reports chest pain and shortness of breath. The patient has CHF on chest x-ray. He has chronic kidney disease. Patient also has a large edematous scrotum. He is given Bumex 1 mg IVP 1 dose. He'll be admitted for diuresis. Case was discussed with the [facility] hospitalist team and they're agreeable for the admission. Diagnosis Primary Impression: worsening anasarca Additional Impressions: CHF (congestive heart failure) Scrotal edema Admitting Information Admitting Physician Requests: Observation Reinaldo Roldan MD Sep 28, 2017 16:00
--- NOTE | 2017-09-28 16:11 | RADRPT ---
EXAM DATE/TIME: 09/28/2017 15:48 [place] COMPARISON: CHEST SINGLE AP, September 25, 2017, 17:00. INDICATIONS : Short of breath. MEDICAL HISTORY : Hypertension. Congestive heart failure. Morbid obesity. COPD. Carcinoma, prostate. SURGICAL HISTORY : None. ENCOUNTER: Initial ACUITY: 1 day PAIN SCORE: 5/10 LOCATION: Bilateral chest FINDINGS: Cardiac silhouette is enlarged. Mild diffuse interstitial prominence and indistinct central pulmonary vasculature. No new focal pleural or parenchymal opacities. Remainder of exam is unchanged. CONCLUSION: 1. Cardiomegaly with mild positive fluid balance. Marcelo Vásquez MD on September 28, 2017 at 16:08 Board Certified Radiologist. This report was verified electronically.
[2017-09-28 16:12] LABS: AUTOMATED NEUTROPHIL # 4.9 TH/MM3 (1.8-7.7); BASOPHIL % 0.7 % (0.0-2.0); EOSINOPHIL # 0.2 TH/MM3 (0-0.4); EOSINOPHIL % 2.3 % (0.0-4.0); HEMATOCRIT 35.3 % (39.0-51.0); HEMOGLOBIN 11.1 GM/DL (13.0-17.0); LYMPH % 18.5 % (9.0-44.0); LYMPHOCYTE # 1.3 TH/MM3 (1.0-4.8); MEAN CELL VOLUME 99.6 FL (80.0-100.0); MEAN CORPUSCULAR HEMOGLOBIN 31.4 PG (27.0-34.0); MEAN CORPUSCULAR HGB CONC 31.6 % (32.0-36.0); MEAN PLATELET VOLUME 11.2 FL (7.0-11.0); MONO % 10.2 % (0.0-8.0); MONOCYTE # 0.7 TH/MM3 (0-0.9); NEUT % 68.3 % (16.0-70.0); PLATELET COUNT 126 TH/MM3 (150-450); RED BLOOD COUNT 3.54 MIL/MM3 (4.50-5.90); RED CELL DISTRIBUTION WIDTH 16.3 % (11.6-17.2); WHITE BLOOD COUNT 7.1 TH/MM3 (4.0-11.0)
[2017-09-28 16:30] VITALS: O2SAT 96
[2017-09-28 16:38] LABS: ALBUMIN 3.1 GM/DL (3.4-5.0); ALKALINE PHOSPHATASE 82 U/L (45-117); ALT (GPT) 13 U/L (12-78); AST (GOT) 37 U/L (15-37); BICARBONATE 24.3 MEQ/L (21.0-32.0); BLOOD UREA NITROGEN 40 MG/DL (7-18); CALCIUM 8.2 MG/DL (8.5-10.1); CHLORIDE 116 MEQ/L (98-107); CREATININE 1.49 MG/DL (0.60-1.30); GLOMERULAR FILTRATION RATE 57 ML/MIN (>89); GLUCOSE,RANDOM 97 MG/DL (74-106); SODIUM (NA) 145 MEQ/L (136-145); TOTAL BILIRUBIN ADULT 0.6 MG/DL (0.2-1.0); TROPONIN I 0.03 NG/ML (0.02-0.05)
[2017-09-28] MEDS ORDERED: LACTULOSE SYRUP 20 GM/30 ML CUP PO PRN (17:45)
[2017-09-28] MEDS ORDERED: ONDANSETRON HCL 4 MG/2 ML VIAL IVP PRN (17:45)
[2017-09-28] MEDS ORDERED: MAGNESIUM HYDROXIDE SUSP 30 ML CUP PO PRN (17:45)
[2017-09-28] MEDS ORDERED: BISACODYL 10 MG SUPP RECTAL PRN (17:45)
[2017-09-28] MEDS ORDERED: NALOXONE HCL 0.4 MG/ML AMP IV PUSH PRN (17:45)
[2017-09-28] MEDS ORDERED: SENNOSIDES 8.6 MG TAB PO PRN (17:45)
[2017-09-28 19:09] VITALS: BP 160/82; PULSE 85; RESP 20; O2SAT 94
[2017-09-28] MEDS: BUMETANIDE INJ 1 MG/4 ML VIAL IV PUSH SCH (19:12)
[2017-09-28] MEDS: HEPARIN SODIUM - SQ 10,000 UNITS/ML VIAL SQ SCH (19:13)
[2017-09-28] MEDS ORDERED: RESP: IPRATROPIUM 0.5 MG/2.5 ML NEB INH PRN (20:00)
[2017-09-28] MEDS ORDERED: AZITHROMYCIN 250 MG TAB PO ONE (20:15)
--- NOTE | 2017-09-28 20:16 | HHI.HP ---
[facility] Service [facility] Primary Care Physician JENNYFER Cummings Admission Diagnosis mild chf, worsening anasarca, chronic bilateral lower ext edema/woun Diagnoses: Travel History International Travel<30 Days: No Contact w/Intl Traveler <30 Da: No Traveled to Known Affected Are: No History of Present Illness 67-year-old male with a history of CHF, diabetes, COPD, hypertension who presents with a three-day history of worsening shortness of breath, dry cough, worsening bilateral lower extremity edema. He says that he ran out of his inhaler 2 weeks ago, and believes the cold, dry weather has caused his cough over the past few days. He denies any chest pain. Denies any fevers or chills. Past Family Social History Past Medical History Hypertension COPD Diabetes mellitus CHF Chronic kidney disease with baseline creatinine around 1.5. Past Surgical History Patient reports only a history of right hand surgery. Reported Medications Reported Meds & Active Scripts Active Prednisone 20 Mg Tab 40 Mg PO DAILY Take 40 mg (2 tablets) daily for 5 days Proair Hfa 8.5 GM Inh (Albuterol Sulfate) 90 Mcg/Act Aer 2 Puff INH Q6H PRN 108 mcg/actuation [guaiFENesin ER] 600 MG Tabcr 600 Mg PO BID Metoprolol Tartrate 25 Mg Tab 25 Mg PO Q12HR Ergocalciferol 50,000 Unit Cap 50,000 Units PO Q7D Symbicort Inh (Budesonide/Formoterol Fumarate) 160-4.5 Mcg/Act Aero 1 Puff INH Q12HR Reported Amlodipine (Amlodipine Besylate) 10 Mg Tab 10 Mg PO DAILY Ventolin Hfa 18 GM Inh (Albuterol Sulfate) 90 Mcg/Act Aer 2 Puff INH Q6H PRN Omeprazole 40 Mg Cap 40 Mg PO DAILY Metformin (Metformin HCl) 1,000 Mg Tab 1,000 Mg PO BID With meals Allergies: Coded Allergies: *MDRO Multi-Drug Resistant Organism (Verified Adverse Reaction, Unknown, ) MRSA (wounds) - 03/20/13 MRSA PCR Screen NEGATIVE - 03/19/16, 03/21/2016 CLEARED PER INFECTION CONTROL Family History Patient reports mother from breast cancer. Father is estranged. Social History Patient reports smoking about one pack per day for the past 30 years. Denies any alcohol or illicit drugs. Physical Exam Vital Signs Vital Signs Date Time Temp Pulse Resp B/P (MAP) Pulse Ox O2 Delivery O2 Flow Rate FiO2 09/28/17 19:09 85 20 160/82 (108) 94 Nasal Cannula 2.00 09/28/17 16:30 96 Nasal Cannula 2.00 09/28/17 16:30 96 Nasal Cannula 2.00 09/28/17 15:18 96 Nasal Cannula 2.00 09/28/17 14:58 97.9 58 22 157/77 (103) 94 Physical Exam GENERAL: This is a well-nourished, well-developed patient, appears short of breath. Alert and oriented 3. Mildly obese SKIN: No rashes, ecchymoses or lesions. Cool and dry. HEAD: Atraumatic. Normocephalic. No temporal or scalp tenderness. EYES: Pupils equal round and reactive. Extraocular motions intact. No scleral icterus. No injection or drainage. ENT: Nose without bleeding, purulent drainage or septal hematoma. Throat without erythema, tonsillar hypertrophy or exudate. Uvula midline. Airway patent. NECK: Trachea midline. No JVD or lymphadenopathy. Supple, nontender, no meningeal signs. CARDIOVASCULAR: Regular rate and rhythm without murmurs, gallops, or rubs. RESPIRATORY: Clear to auscultation. Breath sounds equal bilaterally. No wheezes , rales, or rhonchi. GASTROINTESTINAL: Abdomen soft, non-tender, nondistended. No hepato-splenomegaly , or palpable masses. No guarding. MUSCULOSKELETAL: Extremities without clubbing, cyanosis. No joint tenderness, effusion. No calf tenderness. Negative Homans sign bilaterally. 3+ chronic edema bilateral lower extremities. Hyperkeratotic skin. No broken skin. NEUROLOGICAL: Awake and alert. Cranial nerves II through XII intact. Motor and sensory grossly within normal limits. Five out of 5 muscle strength in all muscle groups. Normal speech. Laboratory Laboratory Tests Test 09/28/17 15:30 White Blood Count 7.1 Red Blood Count 3.54 Hemoglobin 11.1 Hematocrit 35.3 Mean Corpuscular Volume 99.6 Mean Corpuscular Hemoglobin 31.4 Mean Corpuscular Hemoglobin Concent 31.6 Red Cell Distribution Width 16.3 Platelet Count 126 Mean Platelet Volume 11.2 Neutrophils (%) (Auto) 68.3 Lymphocytes (%) (Auto) 18.5 Monocytes (%) (Auto) 10.2 Eosinophils (%) (Auto) 2.3 Basophils (%) (Auto) 0.7 Neutrophils # (Auto) 4.9 Lymphocytes # (Auto) 1.3 Monocytes # (Auto) 0.7 Eosinophils # (Auto) 0.2 Basophils # (Auto) 0.0 CBC Comment DIFF FINAL Differential Comment Blood Urea Nitrogen 40 Creatinine 1.49 Random Glucose 97 Total Protein 7.0 Albumin 3.1 Calcium Level 8.2 Alkaline Phosphatase 82 Aspartate Amino Transf (AST/SGOT) 37 Alanine Aminotransferase (ALT/SGPT) 13 Total Bilirubin 0.6 Sodium Level 145 Potassium Level 5.6 Chloride Level 116 Carbon Dioxide Level 24.3 Anion Gap 5 Estimat Glomerular Filtration Rate 57 Total Creatine Kinase 315 Creatine Kinase MB 3.3 Creatine Kinase MB % 1.0 Troponin I 0.03 B-Type Natriuretic Peptide 523 Result Diagram: 09/28/17 1530 09/28/17 1530 Caprini VTE Risk Assessment Caprini VTE Risk Assessment: Mod/High Risk (score >= 2) Caprini Risk Assessment Model Point Value = 1 Point Value = 2 Point Value = 3 Point Value = 5 Age 41-60 Minor surgery BMI > 25 kg/m2 Swollen legs Varicose veins or History of unexplained or recurrent spontaneous Oral contraceptives or hormone replacement Sepsis (< 1 month) Serious lung disease, including pneumonia (< 1 month) Abnormal pulmonary function Acute myocardial infarction Congestive heart failure (< 1 month) History of inflammatory bowel disease Medical patient at bed rest Age 61-74 Arthroscopic surgery Major open surgery (> 45 min) Laparoscopic surgery (> 45 min) Malignancy Confined to bed (> 72 hours) Immobilizing plaster cast Central venous access Age >= 75 History of VTE Family history of VTE Factor V Leiden Prothrombin [id number] Lupus anticoagulant Anticardiolipin antibodies Elevated serum homocysteine Heparin-induced thrombocytopenia Other congenital or acquired thrombophilia Stroke (< 1 month) Elective arthroplasty Hip, pelvis, or leg fracture Acute spinal cord injury (< 1 month) Prophylaxis Regimen Total Risk Factor Score Risk Level Prophylaxis Regimen 0-1 Low Early ambulation 2 Moderate Order ONE of the following: *Sequential Compression Device (SCD) *Heparin 5000 units SQ BID 3-4 Higher Order ONE of the following medications: *Heparin 5000 units SQ TID *Enoxaparin/Lovenox 40 mg SQ daily (WT < 150 kg, CrCl > 30 mL/min) *Enoxaparin/Lovenox 30 mg SQ daily (WT < 150 kg, CrCl > 10-29 mL/min) *Enoxaparin/Lovenox 30 mg SQ BID (WT < 150 kg, CrCl > 30 mL/min) AND/OR *Sequential Compression Device (SCD) 5 or more Highest Order ONE of the following medications: *Heparin 5000 units SQ TID (Preferred with Epidurals) *Enoxaparin/Lovenox 40 mg SQ daily (WT < 150 kg, CrCl > 30 mL/min) *Enoxaparin/Lovenox 30 mg SQ daily (WT < 150 kg, CrCl > 10-29 mL/min) *Enoxaparin/Lovenox 30 mg SQ BID (WT < 150 kg, CrCl > 30 mL/min) AND *Sequential Compression Device (SCD) Assessment and Plan Assessment and Plan //COPD exacerbation. -Chest x-ray with no lobar pneumonia, fluid overload. -Likely worsened due to running out of inhaler 2 weeks ago, recent cold, dry weather. -Prednisone, duo nebs ordered. //CHF exacerbation //Hypertension -BNP in the 500s. -Likely worsened in part due to COPD exacerbation, suspected pulmonary hypertension. Echocardiogram ordered and pending. Vascular congestion on chest x-ray Fluid restrictions 1500 mL on admission. Diuresis. Continue to monitor. //Hypokalemia. Expect to improve with diuretics. Continue to monitor. //Tobacco abuse. Cessation counseling provided. //Diabetes mellitus. Diabetic diet. Insulin sliding scale. //GERD. Chronic. Continue omeprazole Discussed Condition With Patient, Dr. Chan Physician Certification 2 Midnight Certification Type: Admission for Inpatient Services Order for Inpatient Services The services are ordered in accordance with Medicare regulations or non- Medicare payer requirements, as applicable. In the case of services not specified as inpatient-only, they are appropriately provided as inpatient services in accordance with the 2-midnight benchmark. Estimated LOS (days): 3 days is the estimated time the patient will need to remain in the hospital, assuming treatment plan goals are met and no additional complications. Post-Hospital Plan: Not yet determined Harpal Hilario MD Sep 28, 2017 20:16
[2017-09-28] MEDS ORDERED: DEXTROSE 50% IN WATER 50 ML VIAL(D50) IV PUSH PRN (20:30)
[2017-09-28] MEDS ORDERED: GLUCAGON 1 MG/ML VIAL OTHER PRN (20:30)
[2017-09-28] MEDS: RESP: ALBUTEROL 2.5 MG/IPRATROPIUM 0.5 MG NEB (SCH) INH (20:30)
[2017-09-28 20:33] VITALS: O2SAT 94
[2017-09-28 20:56] VITALS: BP 168/80; PULSE 70; RESP 18; TEMP 98.4; O2SAT 98
[2017-09-28] MEDS: INSULIN ASPART SUPPLEMENTAL SCALE SQ SCH (21:00)
[2017-09-28] MEDS: SODIUM CHLORIDE 0.9% FLUSH 10 ML FLUSH IV FLUSH SCH (21:42)
[2017-09-28] MEDS: ACETAMINOPHEN 325 MG TAB PO PRN (21:45)
[2017-09-29] VITALS (13 sets, daily range): BP systolic 129–189; BP diastolic 74–90; PULSE 63–88; RESP 18–24; TEMP 97.2–98.8; O2SAT 92–98
[2017-09-29] MEDS: RESP: ALBUTEROL 2.5 MG/IPRATROPIUM 0.5 MG NEB (SCH) INH ×4 (03:02→21:42)
[2017-09-29] MEDS: HEPARIN SODIUM - SQ 10,000 UNITS/ML VIAL SQ SCH ×2 (06:05→18:05)
[2017-09-29 06:58] LABS: AUTOMATED NEUTROPHIL # 4.5 TH/MM3 (1.8-7.7); BASOPHIL % 0.5 % (0.0-2.0); EOSINOPHIL # 0.2 TH/MM3 (0-0.4); HEMATOCRIT 34.9 % (39.0-51.0); HEMOGLOBIN 10.9 GM/DL (13.0-17.0); LYMPHOCYTE # 1.3 TH/MM3 (1.0-4.8); MEAN CELL VOLUME 101.4 FL (80.0-100.0); MEAN CORPUSCULAR HEMOGLOBIN 31.8 PG (27.0-34.0); MEAN CORPUSCULAR HGB CONC 31.3 % (32.0-36.0); MEAN PLATELET VOLUME 10.2 FL (7.0-11.0); MONO % 9.4 % (0.0-8.0); MONOCYTE # 0.6 TH/MM3 (0-0.9); NEUT % 67.1 % (16.0-70.0); PLATELET COUNT 127 TH/MM3 (150-450); RED BLOOD COUNT 3.44 MIL/MM3 (4.50-5.90); RED CELL DISTRIBUTION WIDTH 16.5 % (11.6-17.2); WHITE BLOOD COUNT 6.7 TH/MM3 (4.0-11.0)
[2017-09-29 07:35] LABS: BICARBONATE 27.2 MEQ/L (21.0-32.0); CALCIUM 8.2 MG/DL (8.5-10.1); CREATININE 1.53 MG/DL (0.60-1.30)
[2017-09-29] MEDS: INSULIN ASPART SUPPLEMENTAL SCALE SQ SCH ×4 (08:00→22:42)
--- NOTE | 2017-09-29 08:10 | HHI.PR ---
Subjective Remarks In bed appears tired. Patient says he was able to ambulate at home but he feel too tired anow. He is not on O2 at home however say she had a sleeping study and he needs CPAP at home, following to get CPAP however due to insurance change not able to do so. Objective Vitals Vital Signs Date Time Temp Pulse Resp B/P (MAP) Pulse Ox O2 Delivery O2 Flow Rate FiO2 09/29/17 07:57 97 Nasal Cannula 2.00 09/29/17 07:39 98.8 82 24 145/75 (98) 95 09/29/17 04:37 98.4 88 18 135/80 (98) 98 09/29/17 03:27 82 09/29/17 00:41 98.4 87 18 129/83 (98) 96 09/28/17 21:00 Nasal Cannula 2.00 09/28/17 20:56 98.4 70 18 168/80 (109) 98 09/28/17 20:33 94 Nasal Cannula 2.00 09/28/17 20:15 09/28/17 19:09 85 20 160/82 (108) 94 Nasal Cannula 2.00 09/28/17 16:30 96 Nasal Cannula 2.00 09/28/17 16:30 96 Nasal Cannula 2.00 09/28/17 15:18 96 Nasal Cannula 2.00 09/28/17 14:58 97.9 58 22 157/77 (103) 94 Result Diagram: 09/29/17 0550 09/29/17 0550 Imaging Last Impressions Chest X-Ray 09/28/17 1511 Signed Impressions: Service Date/Time: Thursday, September 28, 2017 15:48 - CONCLUSION: 1. Cardiomegaly with mild positive fluid balance. Marcelo Vásquez MD Objective Remarks GENERAL: This is a well-nourished, well-developed patient, appears short of breath. Alert and oriented 3. Mildly obese CARDIOVASCULAR: Regular rate and rhythm without murmurs, gallops, or rubs. RESPIRATORY: Clear to auscultation. Breath sounds equal bilaterally. No wheezes , rales, or rhonchi. GASTROINTESTINAL: Abdomen soft, non-tender, nondistended. No hepato-splenomegaly , or palpable masses. No guarding. MUSCULOSKELETAL: Extremities without clubbing, cyanosis. No joint tenderness, effusion. No calf tenderness. Negative Homans sign bilaterally. 3+ chronic edema bilateral lower extremities. Hyperkeratotic skin. No broken skin. NEUROLOGICAL: Awake and alert. Cranial nerves II through XII intact. Motor and sensory grossly within normal limits. Five out of 5 muscle strength in all muscle groups. Normal speech. A/P Assessment and Plan COPD exacerbation. -Chest x-ray reviewed no infiltrate. Findings consistent with fluid overload. -Likely worsened due to running out of inhaler 2 weeks ago, recent cold, dry weather. -Prednisone, duo nebs ordered. CHF exacerbation Hypertension -BNP in the 500s. -Likely worsened in part due to COPD exacerbation, suspected pulmonary hypertension. Echocardiogram is pending. Vascular congestion on chest x-ray Fluid restrictions 1500 mL on admission. Diuresis. Continue to monitor. Hypokalemia. Expect to improve with diuretics. Continue to monitor. Diabetes mellitus 2. Diabetic diet. Insulin sliding scale. GERD. Chronic. Continue omeprazole Tobacco abuse. Cessation counseling provided. Discussed Condition With Patient, nurse Susana Barrera MD Sep 29, 2017 08:10
[2017-09-29] MEDS ORDERED: NON-FORMULARY DRUG (Omeprazole 40 MG) PO SCH (09:00)
[2017-09-29] MEDS: BUMETANIDE INJ 1 MG/4 ML VIAL IV PUSH SCH ×2 (11:32→18:06)
[2017-09-29] MEDS: predniSONE 20 MG TAB PO SCH (11:32)
[2017-09-29] MEDS: METOLAZONE 5 MG TAB PO SCH (11:33)
[2017-09-29] MEDS: PANTOPRAZOLE SOD 40 MG DELAYED RELEASE TAB PO SCH (11:34)
[2017-09-29] MEDS: SODIUM CHLORIDE 0.9% FLUSH 10 ML FLUSH IV FLUSH SCH ×2 (11:34→21:54)
[2017-09-29] MEDS: AZITHROMYCIN 250 MG TAB PO SCH (11:34)
--- NOTE | 2017-09-29 15:37 | ECHRPT ---
Indication: Cardiomyopathy, unspecified CONCLUSIONS Mild concentric left ventricular hypertrophy. Normal left ventricular size. The left ventricular systolic function is low normal with an estimated ejection fraction in the rang e of 50- 55%. The right ventricle is moderately dilated. The left atrial size is upper limits of normal. The right atrial size is [id number] dilated. The aortic root and proximal ascending aorta are not well visualized. Trace mitral valve regurgitation. There is moderate to severe tricuspid valve regurgitation. The pulmonary valve is not well visualized. No pulmonary valve regurgitation. The inferior vena cava is dilated. Dilated inferior vena cava with poor inspiration collapse consistent with elevated right atrial pres sure. There is no pericardial effusion. BP: 145 / 75 HR: Rhythm: MEASUREMENTS (Male / Female) Normal Values Technical Quality:Good 2D ECHO LV Diastolic Diameter PLAX 5.7 cm 4.2 - 5.9 / 3.9 - 5.3 cm LV Systolic Diameter PLAX 4.4 cm IVS Diastolic Thickness 1.5 cm 0.6 - 1.0 / 0.6 - 0.9 cm LVPW Diastolic Thickness 1.5 cm 0.6 - 1.0 / 0.6 - 0.9 cm LV Relative Wall Thickness 0.5 RV Internal Dim ED PLAX 4.2 cm M-MODE Aortic Root Diameter MM 3.5 cm LA Systolic Diameter MM 4.2 cm LA Ao Ratio MM 1.2 AV Cusp Separation MM 2.6 cm DOPPLER Mitral E Point Velocity 107.0 cm/s Mitral A Point Velocity 80.2 cm/s Mitral E to A Ratio 1.3 TR Peak Velocity 327.0 cm/s TR Peak Gradient 42.8 mmHg Right Atrial Pressure 10.0 mmHg Pulmonary Artery Systolic Pressu 52.8 mmHg Right Ventricular Systolic Press 52.8 mmHg FINDINGS LEFT VENTRICLE Mild concentric left ventricular hypertrophy. Normal left ventricular size. The left ventricular systolic function is low normal with an estimated ejection fraction in the rang e of 50- 55%. RIGHT VENTRICLE The right ventricle is moderately dilated. LEFT ATRIUM The left atrial size is upper limits of normal. RIGHT ATRIUM The right atrial size is [id number] dilated. ATRIAL SEPTUM Normal atrial septal thickness without atrial level shunting by limited color doppler interrogation. AORTA The aortic root and proximal ascending aorta are not well visualized. MITRAL VALVE Structurally normal mitral valve. Trace mitral valve regurgitation. AORTIC VALVE Trileaflet aortic valve. No aortic valve stenosis or regurgitation. TRICUSPID VALVE There is moderate to severe tricuspid valve regurgitation. PULMONARY VALVE The pulmonary valve is not well visualized. No pulmonary valve regurgitation. VESSELS The inferior vena cava is dilated. Dilated inferior vena cava with poor inspiration collapse consistent with elevated right atrial pres sure. PERICARDIUM There is no pericardial effusion. Matilda Voss MD, FACC (Electronically Signed) Final Date:29 September 2017 15:36
--- NOTE | 2017-09-29 18:02 | EKG ---
Date Performed: 09/28/2017 Time Performed: 15:02:54 PTAGE: 67 years EKG: SINUS BRADYCARDIA LOW QRS VOLTAGE INFERIOR MYOCARDIAL INFARCTION ANTEROSEPTAL MYOCARDIAL IN FARCTION ABNORMAL ECG Compared to prior tracing no significant change PREVIOUS TRACING : 09/25/2017 17.49 DOCTOR: Matilda Voss Interpretating Date/Time 09/29/2017 18:02:11
[2017-09-30] VITALS (13 sets, daily range): BP systolic 135–163; BP diastolic 72–92; PULSE 60–87; RESP 18–24; TEMP 97.5–98.8; O2SAT 91–97
[2017-09-30] MEDS: RESP: ALBUTEROL 2.5 MG/IPRATROPIUM 0.5 MG NEB (SCH) INH ×4 (04:04→20:03)
[2017-09-30] MEDS: HEPARIN SODIUM - SQ 10,000 UNITS/ML VIAL SQ SCH ×2 (06:00→17:04)
[2017-09-30 06:55] LABS: BASOPHIL % 0.5 % (0.0-2.0); EOSINOPHIL % 0.1 % (0.0-4.0); HEMATOCRIT 34.1 % (39.0-51.0); HEMOGLOBIN 10.8 GM/DL (13.0-17.0); LYMPH % 13.2 % (9.0-44.0); MEAN CORPUSCULAR HEMOGLOBIN 31.9 PG (27.0-34.0); MEAN CORPUSCULAR HGB CONC 31.6 % (32.0-36.0); MEAN PLATELET VOLUME 10.7 FL (7.0-11.0); MONO % 9.8 % (0.0-8.0); MONOCYTE # 0.8 TH/MM3 (0-0.9); NEUT % 76.4 % (16.0-70.0); PLATELET COUNT 122 TH/MM3 (150-450); RED BLOOD COUNT 3.38 MIL/MM3 (4.50-5.90); RED CELL DISTRIBUTION WIDTH 16.2 % (11.6-17.2); WHITE BLOOD COUNT 7.8 TH/MM3 (4.0-11.0)
[2017-09-30 07:23] LABS: BICARBONATE 30.2 MEQ/L (21.0-32.0); CREATININE 1.44 MG/DL (0.60-1.30)
[2017-09-30] MEDS: INSULIN ASPART SUPPLEMENTAL SCALE SQ SCH ×4 (08:00→21:00)
[2017-09-30] MEDS: AZITHROMYCIN 250 MG TAB PO SCH (08:52)
[2017-09-30] MEDS: SODIUM CHLORIDE 0.9% FLUSH 10 ML FLUSH IV FLUSH SCH ×2 (08:52→21:50)
[2017-09-30] MEDS: METOLAZONE 5 MG TAB PO SCH (08:52)
[2017-09-30] MEDS: predniSONE 20 MG TAB PO SCH (08:52)
[2017-09-30] MEDS: PANTOPRAZOLE SOD 40 MG DELAYED RELEASE TAB PO SCH (08:52)
[2017-09-30] MEDS: BUMETANIDE INJ 1 MG/4 ML VIAL IV PUSH SCH ×2 (08:53→17:04)
[2017-09-30] MEDS: ACETAMINOPHEN 325 MG TAB PO PRN (09:49)
--- NOTE | 2017-09-30 13:37 | HHI.PR ---
Subjective Remarks Follow-up for CHF exacerbation, COPD exacerbation. Doing well. No chest pain, shortness of breath, fever or chills. He continues to complain of scrotal edema. Objective Vitals Vital Signs Date Time Temp Pulse Resp B/P (MAP) Pulse Ox O2 Delivery O2 Flow Rate FiO2 09/30/17 11:34 98.8 78 24 141/72 (95) 94 09/30/17 10:30 94 Nasal Cannula 3.00 09/30/17 09:13 Nasal Cannula 2.00 09/30/17 08:30 73 09/30/17 07:36 97.6 84 24 135/75 (95) 94 09/30/17 03:13 98.4 87 18 135/92 (106) 94 09/29/17 23:56 98.4 86 18 162/76 (104) 95 09/29/17 20:34 94 Nasal Cannula 3.00 09/29/17 20:03 98.4 86 18 168/74 (105) 94 09/29/17 19:00 Nasal Cannula 2.00 09/29/17 16:05 97.2 81 24 177/87 (117) 95 09/29/17 15:00 63 I/O 09/29/17 09/29/17 09/29/17 09/30/17 09/30/17 09/30/17 07:00 15:00 23:00 07:00 15:00 23:00 Intake Total 800 ml Output Total 4200 ml 2000 ml 1200 ml Balance -4200 ml -2000 ml -400 ml Intake Oral 800 ml Output Urine Total 4200 ml 2000 ml 1200 ml Result Diagram: 09/30/1713 09/30/17 0613 Imaging Last Impressions Chest X-Ray 09/28/17 1511 Signed Impressions: Service Date/Time: Thursday, September 28, 2017 15:48 - CONCLUSION: 1. Cardiomegaly with mild positive fluid balance. Marcelo Vásquez MD Objective Remarks GENERAL: Alert, oriented 3, NAD. Morbid obesity SKIN: Warm and dry. HEAD: Normocephalic. EYES: No scleral icterus. No injection or drainage. NECK: Supple, trachea midline. No JVD or lymphadenopathy. CARDIOVASCULAR: Regular rate and rhythm without murmurs, gallops, or rubs. RESPIRATORY: Breath sounds equal bilaterally. No accessory muscle use. GASTROINTESTINAL: Abdomen soft, non-tender, nondistended. Significant scrotal edema. MUSCULOSKELETAL: Hyperkeratotic skin. 2+ edema. BACK: Nontender without obvious deformity. No CVA tenderness. Procedures Echo 09/30/2017 Mild concentric left ventricular hypertrophy. Normal left ventricular size. The left ventricular systolic function is low normal with an estimated ejection fraction in the range of 50- 55%. The right ventricle is moderately dilated. The left atrial size is upper limits of normal. The right atrial size is [id number]-[id number] dilated. The aortic root and proximal ascending aorta are not well visualized. Trace mitral valve regurgitation. There is moderate to severe tricuspid valve regurgitation. The pulmonary valve is not well visualized. No pulmonary valve regurgitation. The inferior vena cava is dilated. Dilated inferior vena cava with poor inspiration collapse consistent with elevated right atrial pressure. There is no pericardial effusion. A/P Problem List: (1) COPD exacerbation ICD Code: J44.1 - Chronic obstructive pulmonary disease with (acute) exacerbation Status: Acute (2) CHF (congestive heart failure) ICD Code: I50.9 - Heart failure, unspecified Status: Acute (3) Morbid obesity ICD Code: E66.01 - Morbid (severe) obesity due to excess calories Status: Acute (4) Scrotal edema ICD Code: N50.89 - Other specified disorders of the male genital organs Status: Acute Assessment and Plan Mr. Roth is a 67-year-old male with a history of CHF, diabetes, COPD, hypertension who presents with a three-day history of worsening shortness of breath, dry cough, worsening bilateral lower extremity edema as well scrotal edema. - Acute diastolic congestive heart failure - Echo shows EF 50-55%. - Continue Bumex 1 mg IV twice a day, metolazone 5 mg daily. - COPD exacerbation - Continue supplemental oxygen to keep O2 saturation above 90%. - Continue DuoNeb, prednisone 40 mg daily. - Continue azithromycin 250 mg daily - Diabetes mellitus - continue diabetic diet. Patient's blood sugar is well controlled. Goal 140-180. Continue sliding scale insulin. - Hypertension - continue amlodipine 10 mg daily - GERD - continue Protonix - Hyperkalemia - improved with diuresis. Full code. Heparin subcutaneous. Arcenio Chan DO Sep 30, 2017 1:37 pm
[2017-09-30] MEDS: SODIUM CHLORIDE 0.9% FLUSH 10 ML FLUSH IV FLUSH PRN (17:04)
[2017-10-01] VITALS (13 sets, daily range): BP systolic 134–163; BP diastolic 72–78; PULSE 56–87; RESP 19–24; TEMP 95.9–97.3; O2SAT 90–98
[2017-10-01] MEDS: RESP: ALBUTEROL 2.5 MG/IPRATROPIUM 0.5 MG NEB (SCH) INH ×4 (02:46→19:12)
[2017-10-01] MEDS: HEPARIN SODIUM - SQ 10,000 UNITS/ML VIAL SQ SCH ×2 (06:16→18:33)
[2017-10-01] MEDS: INSULIN ASPART SUPPLEMENTAL SCALE SQ SCH ×4 (08:00→22:01)
[2017-10-01] MEDS ORDERED: INFLUENZA VIRUS VACCINE (QUADRIVALENT) 0.5 ML SYR IM ONE (10:00)
[2017-10-01] MEDS: SODIUM CHLORIDE 0.9% FLUSH 10 ML FLUSH IV FLUSH SCH ×2 (10:34→22:00)
[2017-10-01] MEDS: BUMETANIDE INJ 1 MG/4 ML VIAL IV PUSH SCH ×2 (10:34→18:33)
[2017-10-01] MEDS: PANTOPRAZOLE SOD 40 MG DELAYED RELEASE TAB PO SCH (10:35)
[2017-10-01] MEDS: predniSONE 20 MG TAB PO SCH (10:35)
[2017-10-01] MEDS: AZITHROMYCIN 250 MG TAB PO SCH (10:35)
[2017-10-01] MEDS: METOLAZONE 5 MG TAB PO SCH (10:37)
[2017-10-01] MEDS: ACETAMINOPHEN 325 MG TAB PO PRN (10:52)
--- NOTE | 2017-10-01 15:40 | HHI.PR ---
Subjective Remarks Follow-up for CHF exacerbation, COPD exacerbation. Still has shortness of breath. No chest pain, fever, chills. Objective Vitals Vital Signs Date Time Temp Pulse Resp B/P (MAP) Pulse Ox O2 Delivery O2 Flow Rate FiO2 10/01/17 12:30 56 10/01/17 12:05 96.9 67 20 159/78 (105) 90 Manual Cuff/Auscultation 10/01/17 08:15 87 10/01/17 08:10 98 Nasal Cannula 3.00 10/01/17 08:00 Nasal Cannula 2.00 10/01/17 07:48 95.9 76 20 163/77 (105) 97 10/01/17 03:52 96.8 82 24 154/72 (99) 94 10/01/17 00:43 79 09/30/17 23:39 98.4 77 23 163/76 (105) 97 09/30/17 20:30 98.1 79 20 158/73 (101) 94 09/30/17 20:05 92 Nasal Cannula 3.00 09/30/17 19:00 92 Nasal Cannula 3.00 09/30/17 16:00 81 09/30/17 15:45 97.5 68 24 163/77 (105) 91 I/O 09/30/17 09/30/17 09/30/17 10/01/17 10/01/17 10/01/17 07:00 15:00 23:00 07:00 15:00 23:00 Intake Total 800 ml 360 ml Output Total 2000 ml 1200 ml 800 ml 950 ml 2025 ml Balance -2000 ml -400 ml -800 ml -590 ml -2025 ml Intake Oral 800 ml 360 ml Output Urine Total 2000 ml 1200 ml 800 ml 950 ml 2025 ml Result Diagram: 09/30/17 0613 09/30/17 0613 Imaging Last Impressions Chest X-Ray 09/28/17 1511 Signed Impressions: Service Date/Time: Thursday, September 28, 2017 15:48 - CONCLUSION: 1. Cardiomegaly with mild positive fluid balance. Marcelo Vásquez MD Objective Remarks GENERAL: Alert, oriented 3, NAD. Morbid obesity SKIN: Warm and dry. HEAD: Normocephalic. EYES: No scleral icterus. No injection or drainage. NECK: Supple, trachea midline. No JVD or lymphadenopathy. CARDIOVASCULAR: Regular rate and rhythm without murmurs, gallops, or rubs. RESPIRATORY: Breath sounds equal bilaterally. No accessory muscle use. GASTROINTESTINAL: Abdomen soft, non-tender, nondistended. Significant scrotal edema. MUSCULOSKELETAL: Hyperkeratotic skin. 2+ edema. BACK: Nontender without obvious deformity. No CVA tenderness. Procedures Echo 09/30/2017 Mild concentric left ventricular hypertrophy. Normal left ventricular size. The left ventricular systolic function is low normal with an estimated ejection fraction in the range of 50- 55%. The right ventricle is moderately dilated. The left atrial size is upper limits of normal. The right atrial size is jcta-tk-fsscapzzvu dilated. The aortic root and proximal ascending aorta are not well visualized. Trace mitral valve regurgitation. There is moderate to severe tricuspid valve regurgitation. The pulmonary valve is not well visualized. No pulmonary valve regurgitation. The inferior vena cava is dilated. Dilated inferior vena cava with poor inspiration collapse consistent with elevated right atrial pressure. There is no pericardial effusion. A/P Problem List: (1) COPD exacerbation ICD Code: J44.1 - Chronic obstructive pulmonary disease with (acute) exacerbation Status: Acute (2) CHF (congestive heart failure) ICD Code: I50.9 - Heart failure, unspecified Status: Acute (3) Morbid obesity ICD Code: E66.01 - Morbid (severe) obesity due to excess calories Status: Acute (4) Scrotal edema ICD Code: N50.89 - Other specified disorders of the male genital organs Status: Acute Assessment and Plan Mr. Roth is a 67-year-old male with a history of CHF, diabetes, COPD, hypertension who presents with a three-day history of worsening shortness of breath, dry cough, worsening bilateral lower extremity edema as well scrotal edema. - Acute diastolic congestive heart failure - Echo shows EF 50-55%. - Continue Bumex 1 mg IV twice a day, metolazone 5 mg daily. - COPD exacerbation - Continue supplemental oxygen to keep O2 saturation above 90%. - Continue DuoNeb, prednisone 40 mg daily. - Continue azithromycin 250 mg daily - Severe chronic venous stasis - Will consult Wound care for their recommendations. - Diabetes mellitus - continue diabetic diet. Patient's blood sugar is well controlled. Goal 140-180. Continue sliding scale insulin. - Hypertension - continue amlodipine 10 mg daily - GERD - continue Protonix - Hyperkalemia - improved with diuresis. Full code. Heparin subcutaneous. Arcenio Chan DO Oct 01, 2017 15:40
[2017-10-01] MEDS: NEOMYCIN/POLYMYXIN/HYDROCORT OTIC SOLN 10 ML BTL EACH EAR SCH (18:00)
[2017-10-01] MEDS: SODIUM CHLORIDE 0.9% FLUSH 10 ML FLUSH IV FLUSH PRN (18:33)
[2017-10-02] VITALS (12 sets, daily range): BP systolic 132–168; BP diastolic 68–84; PULSE 62–80; RESP 17–22; TEMP 96.5–98.8; O2SAT 93–99
[2017-10-02] MEDS: RESP: ALBUTEROL 2.5 MG/IPRATROPIUM 0.5 MG NEB (SCH) INH ×4 (03:30→20:40)
[2017-10-02] MEDS: HEPARIN SODIUM - SQ 10,000 UNITS/ML VIAL SQ SCH ×2 (06:07→17:12)
[2017-10-02] MEDS: NEOMYCIN/POLYMYXIN/HYDROCORT OTIC SOLN 10 ML BTL EACH EAR SCH ×5 (06:07→23:44)
[2017-10-02] MEDS: INSULIN ASPART SUPPLEMENTAL SCALE SQ SCH ×4 (08:00→21:00)
[2017-10-02] MEDS: predniSONE 20 MG TAB PO SCH (10:00)
[2017-10-02] MEDS: AZITHROMYCIN 250 MG TAB PO SCH (10:01)
[2017-10-02] MEDS: PANTOPRAZOLE SOD 40 MG DELAYED RELEASE TAB PO SCH (10:01)
[2017-10-02] MEDS: BUMETANIDE INJ 1 MG/4 ML VIAL IV PUSH SCH ×2 (10:01→17:11)
[2017-10-02] MEDS: SODIUM CHLORIDE 0.9% FLUSH 10 ML FLUSH IV FLUSH SCH ×2 (10:01→21:24)
[2017-10-02] MEDS: METOLAZONE 5 MG TAB PO SCH (10:53)
--- NOTE | 2017-10-02 11:24 | HHI.PR ---
Subjective Remarks Follow-up for CHF exacerbation, COPD exacerbation, severe venous stasis. Patient reports no acute concerns. No chest pain, fever, chills. Objective Vitals Vital Signs Date Time Temp Pulse Resp B/P (MAP) Pulse Ox O2 Delivery O2 Flow Rate FiO2 10/02/17 10:45 95 Nasal Cannula 3.00 10/02/17 09:06 2.00 10/02/17 07:40 97.6 68 22 157/81 (106) 97 10/02/17 05:27 96.6 69 17 132/71 (91) 93 10/02/17 04:02 80 10/02/17 03:16 77 10/02/17 02:30 Nasal Cannula 2.00 10/02/17 02:11 96.5 67 18 143/73 (96) 96 10/01/17 23:45 69 10/01/17 20:53 97.3 65 19 134/73 (93) 95 10/01/17 20:15 77 10/01/17 19:12 96 Nasal Cannula 3.00 10/01/17 16:00 74 10/01/17 15:35 96.4 75 24 152/75 (100) 94 10/01/17 12:30 56 10/01/17 12:05 96.9 67 20 159/78 (105) 90 Manual Cuff/Auscultation I/O 10/01/17 10/01/17 10/01/17 10/02/17 10/02/17 10/02/17 07:00 15:00 23:00 07:00 15:00 23:00 Intake Total 360 ml Output Total 950 ml 2025 ml 1100 ml 2000 ml Balance -590 ml -2025 ml -1100 ml -2000 ml Intake Oral 360 ml Output Urine Total 950 ml 2025 ml 1100 ml 2000 ml Result Diagram: 09/30/17 0613 09/30/17 0613 Imaging Last Impressions Chest X-Ray 09/28/17 1511 Signed Impressions: Service Date/Time: Thursday, September 28, 2017 15:48 - CONCLUSION: 1. Cardiomegaly with mild positive fluid balance. Marcelo Vásquez MD Objective Remarks GENERAL: Alert, oriented 3, NAD. Morbid obesity SKIN: Warm and dry. HEAD: Normocephalic. EYES: No scleral icterus. No injection or drainage. NECK: Supple, trachea midline. No JVD or lymphadenopathy. CARDIOVASCULAR: Regular rate and rhythm without murmurs, gallops, or rubs. RESPIRATORY: Breath sounds equal bilaterally. No accessory muscle use. GASTROINTESTINAL: Abdomen soft, non-tender, nondistended. Significant scrotal edema. MUSCULOSKELETAL: Hyperkeratotic skin with chronic venous stasis. 2+ edema. BACK: Nontender without obvious deformity. No CVA tenderness. Procedures Echo 09/30/2017 Mild concentric left ventricular hypertrophy. Normal left ventricular size. The left ventricular systolic function is low normal with an estimated ejection fraction in the range of 50- 55%. The right ventricle is moderately dilated. The left atrial size is upper limits of normal. The right atrial size is jxwn-ik-vdopnntpsu dilated. The aortic root and proximal ascending aorta are not well visualized. Trace mitral valve regurgitation. There is moderate to severe tricuspid valve regurgitation. The pulmonary valve is not well visualized. No pulmonary valve regurgitation. The inferior vena cava is dilated. Dilated inferior vena cava with poor inspiration collapse consistent with elevated right atrial pressure. There is no pericardial effusion. A/P Problem List: (1) COPD exacerbation ICD Code: J44.1 - Chronic obstructive pulmonary disease with (acute) exacerbation Status: Acute (2) CHF (congestive heart failure) ICD Code: I50.9 - Heart failure, unspecified Status: Acute (3) Morbid obesity ICD Code: E66.01 - Morbid (severe) obesity due to excess calories Status: Acute (4) Scrotal edema ICD Code: N50.89 - Other specified disorders of the male genital organs Status: Acute Assessment and Plan Mr. Roth is a 67-year-old male with a history of CHF, diabetes, COPD, hypertension who presents with a three-day history of worsening shortness of breath, dry cough, worsening bilateral lower extremity edema as well scrotal edema. - Acute diastolic congestive heart failure - Echo shows EF 50-55%. - Continue Bumex 1 mg IV twice a day, metolazone 5 mg daily. - COPD exacerbation - Continue supplemental oxygen to keep O2 saturation above 90%. - Continue DuoNeb, prednisone 40 mg daily. - Continue azithromycin 250 mg daily - Severe chronic venous stasis - Discussed with wound care, appreciate their input. - Per wound care: Please apply shaving cream to bilateral lower extremities and leave in place for 10 minutes before rinsing off and patting dry. Apply Lac hydrin lotion as ordered by physician and leave BLE open to air. Elevate BLE on pillows to reduce edema. - Diabetes mellitus - continue diabetic diet. Patient's blood sugar is well controlled. Goal 140-180. Continue sliding scale insulin. - Hypertension - continue amlodipine 10 mg daily - GERD - continue Protonix - Hyperkalemia - improved with diuresis. Full code. Heparin subcutaneous. Discussed with CM about placement. Probable discharge tomorrow 10/03/2017. Arcenio Chan DO Oct 02, 2017 11:24
--- NOTE | 2017-10-02 15:15 | PD.WCN.NOT ---
Wound Consult Description: Received consult from Doctor Arcenio Chan for wound management of Bilateral lower extremities. Communicated with: RN Corie [facility] G pod and call placed to Doctor Arcenio Chan for orders Recommendation: Please apply shaving cream to bilateral lower extremities and leave in place for 10 minutes before rinsing off and patting dry. Apply Lac hydrin lotion as ordered by physician and leave BLE open to air. Elevate BLE on pillows to reduce edema. Patient will have to be referred to out patient wound care when discharged to manage venous stasis dermatitis to legs Additional Information: Patient seen in [facility] Gpod for wound management of bilateral lower extremities. Spoke with patient regarding understanding of disease process. Patient legs were not elevated in bed,he is non ambulatory per RN and patient. Bilateral lower legs present with thickened,hyperkeratotic, skin that has a cobblestone like appearance. Skin appears dry but has been weeping. Ultra sorb pad is in place under legs for drainage management. No open wounds are seen. Spoke with nurse regarding findings. Recommendations are noted above. Tara Flores [facility] Oct 02, 2017 15:15
[2017-10-03] VITALS (7 sets, daily range): BP systolic 138–159; BP diastolic 67–84; PULSE 61–88; RESP 20–21; TEMP 97.2–98.1; O2SAT 90–96
[2017-10-03] MEDS: HEPARIN SODIUM - SQ 10,000 UNITS/ML VIAL SQ SCH ×2 (05:48→18:10)
[2017-10-03] MEDS: NEOMYCIN/POLYMYXIN/HYDROCORT OTIC SOLN 10 ML BTL EACH EAR SCH ×4 (05:49→22:50)
[2017-10-03] MEDS: AZITHROMYCIN 250 MG TAB PO SCH (09:44)
[2017-10-03] MEDS: predniSONE 20 MG TAB PO SCH (09:44)
[2017-10-03] MEDS: METOLAZONE 5 MG TAB PO SCH (09:44)
[2017-10-03] MEDS: PANTOPRAZOLE SOD 40 MG DELAYED RELEASE TAB PO SCH (09:44)
[2017-10-03] MEDS: BUMETANIDE INJ 1 MG/4 ML VIAL IV PUSH SCH ×2 (09:45→18:10)
[2017-10-03] MEDS: INSULIN ASPART SUPPLEMENTAL SCALE SQ SCH ×4 (09:45→21:00)
[2017-10-03] MEDS: SODIUM CHLORIDE 0.9% FLUSH 10 ML FLUSH IV FLUSH SCH ×2 (09:45→22:47)
--- NOTE | 2017-10-03 10:25 | HHI.PR ---
Subjective Remarks In bed, with sob, sys O2 helps some. No fever or chills. Feels tired. No n/v/d/ c. Did not eat much . Objective Vitals Vital Signs Date Time Temp Pulse Resp B/P (MAP) Pulse Ox O2 Delivery O2 Flow Rate FiO2 10/03/17 08:00 97.7 69 20 140/70 (93) 93 10/03/17 00:00 97.7 88 20 151/72 (98) 96 10/02/17 20:40 99 Nasal Cannula 2.00 10/02/17 20:15 98 Nasal Cannula 2.00 10/02/17 20:00 98.2 66 20 168/84 (112) 98 10/02/17 20:00 62 10/02/17 16:00 98.0 70 20 145/68 (93) 93 10/02/17 12:07 68 10/02/17 11:43 98.8 76 20 157/78 (104) 94 10/02/17 10:45 95 Nasal Cannula 3.00 I/O 10/02/17 10/02/17 10/02/17 10/03/17 10/03/17 10/03/17 07:00 15:00 23:00 07:00 15:00 23:00 Intake Total 0 ml Output Total 2000 ml 2950 ml 4300 ml Balance -2000 ml -2950 ml -4300 ml Intake Oral 0 ml Output Urine Total 2000 ml 2950 ml 4300 ml # Bowel Movements 1 1 Result Diagram: 09/30/17 0613 09/30/17 0613 Imaging Last Impressions Chest X-Ray 09/28/17 1511 Signed Impressions: Service Date/Time: Thursday, September 28, 2017 15:48 - CONCLUSION: 1. Cardiomegaly with mild positive fluid balance. Marcelo Vásquez MD Objective Remarks GENERAL: This is a well-nourished, well-developed patient, appears short of breath. Alert and oriented 3. Mildly obese CARDIOVASCULAR: Regular rate and rhythm without murmurs, gallops, or rubs. RESPIRATORY: Clear to auscultation. Breath sounds equal bilaterally. No wheezes , rales, or rhonchi. GASTROINTESTINAL: Abdomen soft, non-tender, nondistended. No hepato-splenomegaly , or palpable masses. No guarding. MUSCULOSKELETAL: Extremities without clubbing, cyanosis. No joint tenderness, effusion. No calf tenderness. Negative Homans sign bilaterally. 3+ chronic edema bilateral lower extremities. Hyperkeratotic skin. No broken skin. NEUROLOGICAL: Awake and alert. Cranial nerves II through XII intact. Motor and sensory grossly within normal limits. Five out of 5 muscle strength in all muscle groups. Normal speech. Procedures Echo 09/30/2017 Mild concentric left ventricular hypertrophy. Normal left ventricular size. The left ventricular systolic function is low normal with an estimated ejection fraction in the range of 50- 55%. The right ventricle is moderately dilated. The left atrial size is upper limits of normal. The right atrial size is irjj-qf-drnvsfyezo dilated. The aortic root and proximal ascending aorta are not well visualized. Trace mitral valve regurgitation. There is moderate to severe tricuspid valve regurgitation. The pulmonary valve is not well visualized. No pulmonary valve regurgitation. The inferior vena cava is dilated. Dilated inferior vena cava with poor inspiration collapse consistent with elevated right atrial pressure. There is no pericardial effusion. A/P Problem List: (1) COPD exacerbation ICD Code: J44.1 - Chronic obstructive pulmonary disease with (acute) exacerbation Status: Acute (2) CHF (congestive heart failure) ICD Code: I50.9 - Heart failure, unspecified Status: Acute (3) Morbid obesity ICD Code: E66.01 - Morbid (severe) obesity due to excess calories Status: Acute (4) Scrotal edema ICD Code: N50.89 - Other specified disorders of the male genital organs Status: Acute Assessment and Plan Mr. Roth is a 67-year-old male with a history of CHF, diabetes, COPD, hypertension who presents with a three-day history of worsening shortness of breath, dry cough, worsening bilateral lower extremity edema as well scrotal edema. Acute diastolic congestive heart failure - Echo shows EF 50-55%. - Continue Bumex 1 mg IV twice a day, metolazone 5 mg daily. COPD exacerbation - Continue supplemental oxygen to keep O2 saturation above 90%. - Continue DuoNeb, prednisone 40 mg daily. - Continue azithromycin 250 mg daily Severe chronic venous stasis - Discussed with wound care, appreciate their input. - Per wound care: Please apply shaving cream to bilateral lower extremities and leave in place for 10 minutes before rinsing off and patting dry. Apply Lac hydrin lotion as ordered by physician and leave BLE open to air. Elevate BLE on pillows to reduce edema. Diabetes mellitus - continue diabetic diet. Patient's blood sugar is well controlled. Goal 140-180. Continue sliding scale insulin. Hypertension - continue amlodipine 10 mg daily GERD - continue Protonix Hyperkalemia - improved with diuresis. Full code. Heparin subcutaneous. CM ff for DC plan. Probable discharge today 10/03/2017. Susana Barrera MD Oct 03, 2017 10:25
[2017-10-03] MEDS ORDERED: CORTI10A EACH EAR (10:27)
[2017-10-03] MEDS ORDERED: METO5TAB3 PO (10:27)
[2017-10-03] MEDS ORDERED: BUME1TAB PO (10:27)
--- NOTE | 2017-10-03 10:27 | HHI.DS ---
Discharge Summary Admission Date Sep 28, 2017 at 17:57 Discharge Date: Oct 03, 2017 Admitting Diagnosis mild chf, worsening anasarca, chronic bilateral lower ext edema/woun (1) COPD exacerbation ICD Code: J44.1 - Chronic obstructive pulmonary disease with (acute) exacerbation Status: Acute (2) CHF (congestive heart failure) ICD Code: I50.9 - Heart failure, unspecified Status: Acute (3) Morbid obesity ICD Code: E66.01 - Morbid (severe) obesity due to excess calories Status: Acute (4) Scrotal edema ICD Code: N50.89 - Other specified disorders of the male genital organs Status: Acute Procedures Echo 09/30/2017 Mild concentric left ventricular hypertrophy. Normal left ventricular size. The left ventricular systolic function is low normal with an estimated ejection fraction in the range of 50- 55%. The right ventricle is moderately dilated. The left atrial size is upper limits of normal. The right atrial size is uzup-yq-jxfmewbtxq dilated. The aortic root and proximal ascending aorta are not well visualized. Trace mitral valve regurgitation. There is moderate to severe tricuspid valve regurgitation. The pulmonary valve is not well visualized. No pulmonary valve regurgitation. The inferior vena cava is dilated. Dilated inferior vena cava with poor inspiration collapse consistent with elevated right atrial pressure. There is no pericardial effusion. Brief History - From Admission 67-year-old male with a history of CHF, diabetes, COPD, hypertension who presents with a three-day history of worsening shortness of breath, dry cough, worsening bilateral lower extremity edema. He says that he ran out of his inhaler 2 weeks ago, and believes the cold, dry weather has caused his cough over the past few days. He denies any chest pain. Denies any fevers or chills. CBC/BMP: 09/30/17 0613 09/30/17 0613 Imaging Last Impressions Chest X-Ray 09/28/17 1511 Signed Impressions: Service Date/Time: Thursday, September 28, 2017 15:48 - CONCLUSION: 1. Cardiomegaly with mild positive fluid balance. Marcelo Vásquez MD PE at Discharge GENERAL: Alert, oriented 3, NAD. Morbid obesity SKIN: Warm and dry. HEAD: Normocephalic. EYES: No scleral icterus. No injection or drainage. NECK: Supple, trachea midline. No JVD or lymphadenopathy. CARDIOVASCULAR: Regular rate and rhythm without murmurs, gallops, or rubs. RESPIRATORY: Breath sounds equal bilaterally. No accessory muscle use. GASTROINTESTINAL: Abdomen soft, non-tender, nondistended. Significant scrotal edema. MUSCULOSKELETAL: Hyperkeratotic skin with chronic venous stasis. 2+ edema. BACK: Nontender without obvious deformity. No CVA tenderness. Hospital Course Mr. Roth is a 67-year-old male with a history of CHF, diabetes, COPD, hypertension who presents with a three-day history of worsening shortness of breath, dry cough, worsening bilateral lower extremity edema as well scrotal edema. Acute diastolic congestive heart failure - Echo shows EF 50-55%. - Continue Bumex 1 mg IV twice a day, metolazone 5 mg daily., change to PO COPD exacerbation - Continue supplemental oxygen to keep O2 saturation above 90%. - Continue DuoNeb, prednisone 40 mg daily. - Received azithromycin 250 mg daily x5 days Severe chronic venous stasis - Discussed with wound care, appreciate their input. - Per wound care: Please apply shaving cream to bilateral lower extremities and leave in place for 10 minutes before rinsing off and patting dry. Apply Lac hydrin lotion as ordered by physician and leave BLE open to air. Elevate BLE on pillows to reduce edema. Diabetes mellitus - continue diabetic diet. Patient's blood sugar is well controlled. Goal 140-180. Continue sliding scale insulin. Hypertension - continue amlodipine 10 mg daily GERD - continue Protonix Hyperkalemia - improved with diuresis. Full code. Heparin subcutaneous. ff for DC plan. Patient was discharged home in stable condition to follow up as OP with PCP and consultants. Pt Condition on Discharge: Stable Discharge Disposition: Discharge Home Discharge Time: > 30 minutes Discharge Instructions DIET: Follow Instructions for: Heart Healthy Diet, Diabetic Diet Activities you can perform: Regular-No Restrictions Follow up Referrals: Cardiology - 1 Week PCP Follow-up - 2-3 Days New Medications: Bumetanide (Bumetanide) 1 Mg Tab 1 MG PO DAILY, #30 TAB 0 Refills Lactic Acid (Ammonium Lactate) (Ammonium Lactate) 12% Lotn 1 APPLIC TOPICAL BID for bl leg dernmatitis , #225 ML 0 Refills Metolazone (Metolazone) 5 Mg Tab 5 MG PO DAILY for Blood Pressure Management, #30 TAB Nxfiwsuo-Autgsloew-IS Otic Drops (Sfmjumrz-Ugrcabgig-WA Otic Drops) 1 % Soln 3 DROP EACH EAR Q6HR for eye drops, #30 ML Continued Medications: Albuterol 18 GM Inh (Ventolin Hfa 18 GM Inh) 90 Mcg/Act Aer 2 PUFF INH Q6H PRN for SHORTNESS OF BREATH, INHALER 0 Refills Albuterol 8.5 GM Inh (Proair Hfa 8.5 GM Inh) 90 Mcg/Act Aer 2 PUFF INH Q6H PRN for SHORTNESS OF BREATH, #1 INHALER 0 Refills 108 mcg/actuation Amlodipine (Amlodipine) 10 Mg Tab 10 MG PO DAILY for Blood Pressure Management, TAB Budesonide-Formoterol Inh (Symbicort Inh) 160-4.5 Mcg/Act Aero 1 PUFF INH Q12HR, #1 INHALER 0 Refills Ergocalciferol (Ergocalciferol) 50,000 Unit Cap 13414 UNITS PO Q7D for vit, #4 CAP 0 Refills Metoprolol Tartrate (Metoprolol Tartrate) 25 Mg Tab 25 MG PO Q12HR for htn, #60 TAB 0 Refills Omeprazole (Omeprazole) 40 Mg Cap 40 MG PO DAILY, CAP Prednisone (Prednisone) 20 Mg Tab 40 MG PO DAILY, #10 TAB 0 Refills Take 40 mg (2 tablets) daily for 5 days Discontinued Medications: [guaiFENesin ER] () 600 MG TABCR 600 MG PO BID for COPD, #60 TAB.SR 0 Refills Susana Barrera MD Oct 03, 2017 10:27
[2017-10-03] MEDS ORDERED: AMMO12LO TOPICAL (10:32)
[2017-10-03] MEDS: ACETAMINOPHEN 325 MG TAB PO PRN ×2 (13:50→22:48)
[2017-10-03] MEDS: LACTIC ACID (AMMONIUM LACTATE) 12% LOTION 225 GM BTL TOPICAL SCH ×2 (15:29→22:49)
[2017-10-04] VITALS (8 sets, daily range): BP systolic 156–177; BP diastolic 80–95; PULSE 59–71; RESP 20–21; TEMP 97.6–97.9; O2SAT 90–96
[2017-10-04] MEDS ORDERED: ACETAMINOPHEN/HYDROcodone 325 MG/5 MG TAB PO ONE (01:15)
[2017-10-04] MEDS: NEOMYCIN/POLYMYXIN/HYDROCORT OTIC SOLN 10 ML BTL EACH EAR SCH ×3 (05:35→17:59)
[2017-10-04] MEDS: HEPARIN SODIUM - SQ 10,000 UNITS/ML VIAL SQ SCH ×2 (05:35→17:59)
--- NOTE | 2017-10-04 08:30 | HHI.PR ---
Subjective Remarks In bed, appears in nad. SOB improved. Says she doesn't have a home. No n/v/d/c. Objective Vitals Vital Signs Date Time Temp Pulse Resp B/P (MAP) Pulse Ox O2 Delivery O2 Flow Rate FiO2 10/04/17 04:00 97.7 65 20 158/85 (109) 96 10/04/17 00:00 97.6 69 20 166/95 (118) 96 10/03/17 22:00 Nasal Cannula 3.00 10/03/17 20:00 97.6 63 21 151/84 (106) 95 10/03/17 20:00 61 10/03/17 16:00 98.1 66 20 159/83 (108) 90 10/03/17 12:00 97.2 67 20 138/67 (90) 90 10/03/17 10:02 93 Nasal Cannula 2.00 10/03/17 09:52 68 10/03/17 09:52 Nasal Cannula 3.00 I/O 10/03/17 10/03/17 10/03/17 10/04/17 10/04/17 10/04/17 07:00 15:00 23:00 07:00 15:00 23:00 Intake Total 0 ml 960 ml 100 ml Output Total 4300 ml 2350 ml 3800 ml Balance -4300 ml -1390 ml -3700 ml Intake Oral 0 ml 960 ml 100 ml Output Urine Total 4300 ml 2350 ml 3800 ml # Bowel Movements 1 0 Result Diagram: 09/30/17 0613 09/30/17 0613 Imaging Last Impressions Chest X-Ray 09/28/17 1511 Signed Impressions: Service Date/Time: Thursday, September 28, 2017 15:48 - CONCLUSION: 1. Cardiomegaly with mild positive fluid balance. Marcelo Vásquez MD Objective Remarks GENERAL: This is a well-nourished, well-developed patient, appears short of breath. Alert and oriented 3. Mildly obese CARDIOVASCULAR: Regular rate and rhythm without murmurs, gallops, or rubs. RESPIRATORY: Clear to auscultation. Breath sounds equal bilaterally. No wheezes , rales, or rhonchi. GASTROINTESTINAL: Abdomen soft, non-tender, nondistended. No hepato-splenomegaly , or palpable masses. No guarding. MUSCULOSKELETAL: Extremities without clubbing, cyanosis. No joint tenderness, effusion. No calf tenderness. Negative Homans sign bilaterally. 3+ chronic edema bilateral lower extremities. Hyperkeratotic skin. No broken skin. NEUROLOGICAL: Awake and alert. Cranial nerves II through XII intact. Motor and sensory grossly within normal limits. Five out of 5 muscle strength in all muscle groups. Normal speech. Procedures Echo 09/30/2017 Mild concentric left ventricular hypertrophy. Normal left ventricular size. The left ventricular systolic function is low normal with an estimated ejection fraction in the range of 50- 55%. The right ventricle is moderately dilated. The left atrial size is upper limits of normal. The right atrial size is fpxn-dq-uldidrdbdg dilated. The aortic root and proximal ascending aorta are not well visualized. Trace mitral valve regurgitation. There is moderate to severe tricuspid valve regurgitation. The pulmonary valve is not well visualized. No pulmonary valve regurgitation. The inferior vena cava is dilated. Dilated inferior vena cava with poor inspiration collapse consistent with elevated right atrial pressure. There is no pericardial effusion. A/P Problem List: (1) COPD exacerbation ICD Code: J44.1 - Chronic obstructive pulmonary disease with (acute) exacerbation Status: Acute (2) CHF (congestive heart failure) ICD Code: I50.9 - Heart failure, unspecified Status: Acute (3) Morbid obesity ICD Code: E66.01 - Morbid (severe) obesity due to excess calories Status: Acute (4) Scrotal edema ICD Code: N50.89 - Other specified disorders of the male genital organs Status: Acute Assessment and Plan Mr. Roth is a 67-year-old male with a history of CHF, diabetes, COPD, hypertension who presents with a three-day history of worsening shortness of breath, dry cough, worsening bilateral lower extremity edema as well scrotal edema. Acute diastolic congestive heart failure - Echo shows EF 50-55%. - Continue Bumex 1 mg IV twice a day, metolazone 5 mg daily. COPD exacerbation - Continue supplemental oxygen to keep O2 saturation above 90%. - Continue DuoNeb, prednisone 40 mg daily. - Continue azithromycin 250 mg daily Severe chronic venous stasis - Discussed with wound care, appreciate their input. - Per wound care: Please apply shaving cream to bilateral lower extremities and leave in place for 10 minutes before rinsing off and patting dry. Apply Lac hydrin lotion as ordered by physician and leave BLE open to air. Elevate BLE on pillows to reduce edema. Diabetes mellitus - continue diabetic diet. Patient's blood sugar is well controlled. Goal 140-180. Continue sliding scale insulin. Hypertension - continue amlodipine 10 mg daily GERD - continue Protonix Hyperkalemia - improved with diuresis. Full code. Heparin subcutaneous. CM ff for DC plan. PT recommends SNF. DC to SNF when arrangements done. Case management is following, pending approval. Susana Barrera MD Oct 04, 2017 08:30
[2017-10-04] MEDS: BUMETANIDE INJ 1 MG/4 ML VIAL IV PUSH SCH ×2 (08:37→17:59)
[2017-10-04] MEDS: ACETAMINOPHEN 325 MG TAB PO PRN ×2 (08:37→19:02)
[2017-10-04] MEDS: INSULIN ASPART SUPPLEMENTAL SCALE SQ SCH ×4 (08:37→20:51)
[2017-10-04] MEDS: METOLAZONE 5 MG TAB PO SCH (08:37)
[2017-10-04] MEDS: predniSONE 20 MG TAB PO SCH (08:37)
[2017-10-04] MEDS: PANTOPRAZOLE SOD 40 MG DELAYED RELEASE TAB PO SCH (08:37)
[2017-10-04] MEDS: AZITHROMYCIN 250 MG TAB PO SCH (08:37)
[2017-10-04] MEDS: SODIUM CHLORIDE 0.9% FLUSH 10 ML FLUSH IV FLUSH SCH ×2 (08:38→20:49)
[2017-10-04] MEDS: LACTIC ACID (AMMONIUM LACTATE) 12% LOTION 225 GM BTL TOPICAL SCH ×2 (08:38→20:51)
[2017-10-05] VITALS (9 sets, daily range): BP systolic 143–179; BP diastolic 77–90; PULSE 59–73; RESP 20–22; TEMP 97.5–98.1; O2SAT 93–96
[2017-10-05] MEDS: HEPARIN SODIUM - SQ 10,000 UNITS/ML VIAL SQ SCH ×2 (05:38→17:04)
[2017-10-05] MEDS: NEOMYCIN/POLYMYXIN/HYDROCORT OTIC SOLN 10 ML BTL EACH EAR SCH ×5 (05:39→23:32)
[2017-10-05] MEDS: INSULIN ASPART SUPPLEMENTAL SCALE SQ SCH ×4 (08:00→21:00)
[2017-10-05] MEDS: LACTIC ACID (AMMONIUM LACTATE) 12% LOTION 225 GM BTL TOPICAL SCH ×2 (09:00→21:15)
--- NOTE | 2017-10-05 09:20 | HHI.PR ---
Subjective Remarks In bed, says she feels less sob. no cough. Eating well, no n/v/d/c. No fever or chills. Objective Vitals Vital Signs Date Time Temp Pulse Resp B/P (MAP) Pulse Ox O2 Delivery O2 Flow Rate FiO2 10/05/17 04:00 97.5 69 21 179/90 (119) 96 10/05/17 00:00 97.6 59 20 165/84 (111) 96 10/04/17 20:00 66 10/04/17 20:00 97.7 59 21 156/80 (105) 96 10/04/17 20:00 Nasal Cannula 3.00 10/04/17 16:00 97.9 69 20 177/86 (116) 90 10/04/17 12:00 97.6 71 20 157/82 (107) 90 10/04/17 10:37 93 Nasal Cannula 2.00 I/O 10/04/17 10/04/17 10/04/17 10/05/17 10/05/17 10/05/17 07:00 15:00 23:00 07:00 15:00 23:00 Intake Total 100 ml 960 ml 100 ml Output Total 3800 ml 1550 ml 3600 ml Balance -3700 ml -590 ml -3500 ml Intake Oral 100 ml 960 ml 100 ml Output Urine Total 3800 ml 1550 ml 3600 ml # Bowel Movements 0 1 Imaging Last Impressions Chest X-Ray 09/28/17 1511 Signed Impressions: Service Date/Time: Thursday, September 28, 2017 15:48 - CONCLUSION: 1. Cardiomegaly with mild positive fluid balance. Marcelo Vásquez MD Objective Remarks GENERAL: This is a well-nourished, well-developed patient, appears short of breath. Alert and oriented 3. Mildly obese CARDIOVASCULAR: Regular rate and rhythm without murmurs, gallops, or rubs. RESPIRATORY: Clear to auscultation. Breath sounds equal bilaterally. No wheezes , rales, or rhonchi. GASTROINTESTINAL: Abdomen soft, non-tender, nondistended. No hepato-splenomegaly , or palpable masses. No guarding. MUSCULOSKELETAL: Extremities without clubbing, cyanosis. No joint tenderness, effusion. No calf tenderness. Negative Homans sign bilaterally. 3+ chronic edema bilateral lower extremities. Hyperkeratotic skin. No broken skin. NEUROLOGICAL: Awake and alert. Cranial nerves II through XII intact. Motor and sensory grossly within normal limits. Five out of 5 muscle strength in all muscle groups. Normal speech. Procedures Echo 09/30/2017 Mild concentric left ventricular hypertrophy. Normal left ventricular size. The left ventricular systolic function is low normal with an estimated ejection fraction in the range of 50- 55%. The right ventricle is moderately dilated. The left atrial size is upper limits of normal. The right atrial size is [id number] dilated. The aortic root and proximal ascending aorta are not well visualized. Trace mitral valve regurgitation. There is moderate to severe tricuspid valve regurgitation. The pulmonary valve is not well visualized. No pulmonary valve regurgitation. The inferior vena cava is dilated. Dilated inferior vena cava with poor inspiration collapse consistent with elevated right atrial pressure. There is no pericardial effusion. A/P Problem List: (1) COPD exacerbation ICD Code: J44.1 - Chronic obstructive pulmonary disease with (acute) exacerbation Status: Acute (2) CHF (congestive heart failure) ICD Code: I50.9 - Heart failure, unspecified Status: Acute (3) Morbid obesity ICD Code: E66.01 - Morbid (severe) obesity due to excess calories Status: Acute (4) Scrotal edema ICD Code: N50.89 - Other specified disorders of the male genital organs Status: Acute Assessment and Plan Mr. Roth is a 67-year-old male with a history of CHF, diabetes, COPD, hypertension who presents with a three-day history of worsening shortness of breath, dry cough, worsening bilateral lower extremity edema as well scrotal edema. Acute diastolic congestive heart failure - Echo shows EF 50-55%. - Bumex 1 mg IV twice a day, metolazone 5 mg daily. Monitor kidney function, Monitor UPO. COPD exacerbation - Continue supplemental oxygen to keep O2 saturation above 90%. - Continue DuoNeb, prednisone 40 mg daily taper and DC - Finished azithromycin 250 mg daily Severe chronic venous stasis - Discussed with wound care, appreciate their input. - Per wound care: Please apply shaving cream to bilateral lower extremities and leave in place for 10 minutes before rinsing off and patting dry. Apply Lac hydrin lotion as ordered by physician and leave BLE open to air. Elevate BLE on pillows to reduce edema. Diabetes mellitus - continue diabetic diet. Patient's blood sugar is well controlled. Goal 140-180. Continue sliding scale insulin. Hypertension - continue amlodipine 10 mg daily GERD - continue Protonix Hyperkalemia - improved with diuresis. Full code. Heparin subcutaneous. CM ff for DC plan. PT recommends SNF. DC to SNF when arrangements done. Case management is following, pending approval. Susana Barrera MD Oct 05, 2017 09:20
[2017-10-05] MEDS: BUMETANIDE INJ 1 MG/4 ML VIAL IV PUSH SCH ×2 (09:21→17:04)
[2017-10-05] MEDS: METOLAZONE 5 MG TAB PO SCH (09:21)
[2017-10-05] MEDS: AZITHROMYCIN 250 MG TAB PO SCH (09:22)
[2017-10-05] MEDS: predniSONE 20 MG TAB PO SCH (09:22)
[2017-10-05] MEDS: PANTOPRAZOLE SOD 40 MG DELAYED RELEASE TAB PO SCH (09:22)
[2017-10-05] MEDS: SODIUM CHLORIDE 0.9% FLUSH 10 ML FLUSH IV FLUSH SCH ×2 (09:29→21:14)
[2017-10-05] MEDS: ACETAMINOPHEN 325 MG TAB PO PRN ×3 (10:34→21:26)
[2017-10-06] VITALS (8 sets, daily range): BP systolic 155–166; BP diastolic 74–97; PULSE 53–76; RESP 20–22; TEMP 97.4–98.4; O2SAT 87–97
[2017-10-06] MEDS: NEOMYCIN/POLYMYXIN/HYDROCORT OTIC SOLN 10 ML BTL EACH EAR SCH ×2 (05:05→12:00)
[2017-10-06] MEDS: HEPARIN SODIUM - SQ 10,000 UNITS/ML VIAL SQ SCH (05:05)
[2017-10-06] MEDS: INSULIN ASPART SUPPLEMENTAL SCALE SQ SCH ×2 (08:00→12:00)
--- NOTE | 2017-10-06 08:12 | HHI.PR ---
Subjective Remarks No cp, sob, n/v/d/c. Plan to go to snf today. Objective Vitals Vital Signs Date Time Temp Pulse Resp B/P (MAP) Pulse Ox O2 Delivery O2 Flow Rate FiO2 10/06/17 04:00 98.2 71 22 156/97 (116) 96 10/06/17 01:30 158/74 (102) 10/06/17 00:00 98.0 65 22 162/94 (116) 97 10/05/17 22:33 17 10/05/17 21:15 Nasal Cannula 3.00 10/05/17 20:08 60 10/05/17 20:00 97.9 65 22 143/77 (99) 96 10/05/17 17:34 Nasal Cannula 2.00 10/05/17 16:12 Nasal Cannula 2.00 10/05/17 16:00 97.9 62 20 152/87 (108) 94 10/05/17 12:02 Nasal Cannula 2.00 10/05/17 12:00 98.1 73 20 158/87 (110) 95 10/05/17 11:01 68 10/05/17 09:45 93 21 10/05/17 09:30 Room Air I/O 10/05/17 10/05/17 10/05/17 10/06/17 10/06/17 10/06/17 07:00 15:00 23:00 07:00 15:00 23:00 Intake Total 100 ml 360 ml 100 ml Output Total 3600 ml 1225 ml 2200 ml Balance -3500 ml -1225 ml 360 ml -2100 ml Intake Oral 100 ml 360 ml 100 ml Output Urine Total 3600 ml 1225 ml 2200 ml # Bowel Movements 1 Objective Remarks GENERAL: This is a well-nourished, well-developed patient, appears short of breath. Alert and oriented 3. Mildly obese CARDIOVASCULAR: Regular rate and rhythm without murmurs, gallops, or rubs. RESPIRATORY: Clear to auscultation. Breath sounds equal bilaterally. No wheezes , rales, or rhonchi. GASTROINTESTINAL: Abdomen soft, non-tender, nondistended. No hepato-splenomegaly , or palpable masses. No guarding. MUSCULOSKELETAL: Extremities without clubbing, cyanosis. No joint tenderness, effusion. No calf tenderness. Negative Homans sign bilaterally. 3+ chronic edema bilateral lower extremities. Hyperkeratotic skin. No broken skin. NEUROLOGICAL: Awake and alert. Cranial nerves II through XII intact. Motor and sensory grossly within normal limits. Five out of 5 muscle strength in all muscle groups. Normal speech. Procedures Echo 09/30/2017 Mild concentric left ventricular hypertrophy. Normal left ventricular size. The left ventricular systolic function is low normal with an estimated ejection fraction in the range of 50- 55%. The right ventricle is moderately dilated. The left atrial size is upper limits of normal. The right atrial size is [id number] dilated. The aortic root and proximal ascending aorta are not well visualized. Trace mitral valve regurgitation. There is moderate to severe tricuspid valve regurgitation. The pulmonary valve is not well visualized. No pulmonary valve regurgitation. The inferior vena cava is dilated. Dilated inferior vena cava with poor inspiration collapse consistent with elevated right atrial pressure. There is no pericardial effusion. A/P Problem List: (1) COPD exacerbation ICD Code: J44.1 - Chronic obstructive pulmonary disease with (acute) exacerbation Status: Acute (2) CHF (congestive heart failure) ICD Code: I50.9 - Heart failure, unspecified Status: Acute (3) Morbid obesity ICD Code: E66.01 - Morbid (severe) obesity due to excess calories Status: Acute (4) Scrotal edema ICD Code: N50.89 - Other specified disorders of the male genital organs Status: Acute Assessment and Plan Mr. Roth is a 67-year-old male with a history of CHF, diabetes, COPD, hypertension who presents with a three-day history of worsening shortness of breath, dry cough, worsening bilateral lower extremity edema as well scrotal edema. Acute diastolic congestive heart failure - Echo shows EF 50-55%. - Bumex 1 mg IV twice a day, metolazone 5 mg daily. Monitor kidney function, Monitor UPO. COPD exacerbation - Continue supplemental oxygen to keep O2 saturation above 90%. - Continue DuoNeb, prednisone 40 mg daily taper and DC - Finished azithromycin 250 mg daily Severe chronic venous stasis - Discussed with wound care, appreciate their input. - Per wound care: Please apply shaving cream to bilateral lower extremities and leave in place for 10 minutes before rinsing off and patting dry. Apply Lac hydrin lotion as ordered by physician and leave BLE open to air. Elevate BLE on pillows to reduce edema. Diabetes mellitus - continue diabetic diet. Patient's blood sugar is well controlled. Goal 140-180. Continue sliding scale insulin. Hypertension - continue amlodipine 10 mg daily GERD - continue Protonix Hyperkalemia - improved with diuresis. Full code. Heparin subcutaneous. CM ff for DC plan. PT recommends SNF. DC to SNF when arrangements done. Case management is following, pending approval. DC today , discussed with Susana Boateng MD Oct 06, 2017 08:12
[2017-10-06] MEDS: METOLAZONE 5 MG TAB PO SCH (08:43)
[2017-10-06] MEDS: PANTOPRAZOLE SOD 40 MG DELAYED RELEASE TAB PO SCH (08:44)
[2017-10-06] MEDS: predniSONE 20 MG TAB PO SCH (08:44)
[2017-10-06] MEDS: SODIUM CHLORIDE 0.9% FLUSH 10 ML FLUSH IV FLUSH SCH (08:44)
[2017-10-06] MEDS: BUMETANIDE INJ 1 MG/4 ML VIAL IV PUSH SCH (08:44)
[2017-10-06] MEDS: LACTIC ACID (AMMONIUM LACTATE) 12% LOTION 225 GM BTL TOPICAL SCH (08:56)
[2017-10-06] MEDS: ACETAMINOPHEN 325 MG TAB PO PRN (09:32)
== END 2017-10-06 16:48 | DRG 291 ==
LOC: NEPC 14:32 → NEDA 17:57 → OBSVTOIN 17:57 → NEPGCP 20:13 → N04B 10-02 15:17
PROVIDERS: ADMIT Hospitalist; ATTEND Hospitalist
DX: I13.0 Hypertensive heart and chronic kidney disease with heart failure and stage 1 through stage 4 chronic kidney disease, or unspecified chronic kidney disease (principal); I50.31 Acute diastolic (congestive) heart failure; E11.22 Type 2 diabetes mellitus with diabetic chronic kidney disease; J44.1 Chronic obstructive pulmonary disease with (acute) exacerbation; Z68.43 Body mass index [BMI] 50.0-59.9, adult; I08.1 Rheumatic disorders of both mitral and tricuspid valves; E87.5 Hyperkalemia; E66.01 Morbid (severe) obesity due to excess calories; N18.9 Chronic kidney disease, unspecified; N50.89 Other specified disorders of the male genital organs; I87.8 Other specified disorders of veins; K21.9 Gastro-esophageal reflux disease without esophagitis; F17.210 Nicotine dependence, cigarettes, uncomplicated; G47.30 Sleep apnea, unspecified; L85.9 Epidermal thickening, unspecified; Z79.52 Long term (current) use of systemic steroids; Z85.46 Personal history of malignant neoplasm of prostate; Z23 Encounter for immunization; N50.819 Testicular pain, unspecified; R94.31 Abnormal electrocardiogram [ECG] [EKG]
CPT/HCPCS: 71010; 80048; 80053; 82550; 82552; 82948; 83735; 83880; 84484; 85025; 90686; 93005; 93306; 94640; 94664; 96374; J1644; J1815; J7512; Q2038

== ENCOUNTER 2018-02-25 14:50 | Inpatient (IN) | payer MEDICARE, MEDICAID ==
[~2018-02-25] VITALS: Ht 175.3 cm; Wt 163.6 kg
[~2018-02-25 14:50] MED LIST changes: +AMMO12LO TOPICAL; +BUME1TAB PO; +CORTI10A EACH EAR; -METF1000 PO; +METO5TAB3 PO; -guaiFENesin ER PO
[2018-02-25 15:02] VITALS: BP 148/71; PULSE 60; RESP 19; TEMP 97.8; O2SAT 98
[2018-02-25 15:07] VITALS: O2SAT 99
[2018-02-25] MEDS ORDERED: SODIUM CHLORIDE 0.9% FLUSH 10 ML FLUSH IVF PRN (15:15)
[2018-02-25] MEDS ORDERED: RESP: ALBUTEROL 2.5 MG/IPRATROPIUM 0.5 MG NEB (SCH) INH ONE (15:15)
--- NOTE | 2018-02-25 15:24 | PD ---
HPI Chief Complaint: General Weakness Time Seen by Provider: 15:02 Travel History International Travel<30 days: No Contact w/Intl Traveler<30days: No Traveled to known affect area: No History of Present Illness HPI 67 y/o male presents by ambulance for generalized weakness, shortness of breath and pain in his legs. He states that his legs look like they usually look and he tries to take care of them himself. He states that he has been off of all of his medications except for his inhalers for a couple weeks. He states he is having difficulty getting up today and that is why he called for help. He denies any other concurrent complaints. Quality is all over. Severity is progressive. Duration is couple of days. He denies any other modifying factors. PFSH Past Medical History Arthritis: Yes Asthma: No Anxiety: No Depression: No Heart Rhythm Problems: No Cancer: Yes (PROSTATE) Cardiovascular Problems: Yes High Cholesterol: Yes Chest Pain: Yes Congestive Heart Failure: Yes COPD: Yes Diabetes: Yes Patient Takes Glucophage: No Diminished Hearing: No Endocrine: Yes Gastrointestinal Disorders: Yes (MORBID OBESITY) GERD: Yes Gout: Yes Genitourinary: Yes Hiatal Hernia: No Hypertension: Yes Immune Disorder: No Kidney Stones: No Musculoskeletal: Yes Neurologic: No Psychiatric: No Reproductive: No Respiratory: Yes (COPD) Radiation Therapy: Yes Renal Failure: Yes Sleep Apnea: Yes Thyroid Disease: No Ulcer: No ?: Not Past Surgical History Abdominal Surgery: No Cardiac Surgery: No Ear Surgery: No Endocrine Surgery: No Eye Surgery: No Genitourinary Surgery: No Gynecologic Surgery: No Oral Surgery: No Thoracic Surgery: No Other Surgery: Yes (RT HAND) Social History Alcohol Use: No Tobacco Use: Yes (1 PPD) Substance Use: No Allergies-Medications (Allergen,Severity, Reaction): Coded Allergies: *MDRO Multi-Drug Resistant Organism (Verified Adverse Reaction, Unknown, ) MRSA (wounds) - 03/20/13 MRSA PCR Screen NEGATIVE - 03/19/16, 03/21/2016 CLEARED PER INFECTION CONTROL Reported Meds & Prescriptions Reported Meds & Active Scripts Active Bumetanide 1 Mg Tab 1 Mg PO DAILY Metolazone 5 Mg Tab 5 Mg PO DAILY Proair Hfa 8.5 GM Inh (Albuterol Sulfate) 90 Mcg/Act Aer 2 Puff INH Q6H PRN 108 mcg/actuation Metoprolol Tartrate 25 Mg Tab 25 Mg PO Q12HR Ergocalciferol 50,000 Unit Cap 50,000 Units PO Q7D Symbicort Inh (Budesonide/Formoterol Fumarate) 160-4.5 Mcg/Act Aero 1 Puff INH Q12HR Reported Amlodipine (Amlodipine Besylate) 10 Mg Tab 10 Mg PO DAILY Ventolin Hfa 18 GM Inh (Albuterol Sulfate) 90 Mcg/Act Aer 2 Puff INH Q6H PRN Omeprazole 40 Mg Cap 40 Mg PO DAILY Review of Systems Except as stated in HPI: all other systems reviewed are Neg Physical Exam Narrative GENERAL: 67-year-old male in no apparent distress SKIN: Patient has thickening of his skin with bumps noted throughout legs with foul smelling drainage without cellulitic component HEAD: Normocephalic. EYES: Pupils equal and round. No scleral icterus. No injection or drainage. ENT: No nasal bleeding or discharge. Mucous membranes pink and moist. NECK: Trachea midline. CARDIOVASCULAR: Regular rate and rhythm. RESPIRATORY: No accessory muscle use. decreased breath sounds bilaterally. GASTROINTESTINAL: Abdomen soft, non-tender, nondistended. MUSCULOSKELETAL: No obvious deformities. No clubbing. No cyanosis. no significant pedal edema but difficult to access given skin changes NEUROLOGICAL: Awake and alert. Motor grossly within normal limits. Normal speech. Data Data Last Documented VS Vital Signs Date Time Temp Pulse Resp B/P (MAP) Pulse Ox O2 Delivery O2 Flow Rate FiO2 02/25/18 15:07 18 99 Nasal Cannula 2.00 02/25/18 15:02 97.8 60 148/71 (96) Orders Orders Electrocardiogram (02/25/18 ) Complete Blood Count With Diff (02/25/18 15:08) Comprehensive Metabolic Panel (02/25/18 15:08) B-Type Natriuretic Peptide (02/25/18 15:08) Act Partial Throm Time (Ptt) (02/25/18 15:08) Prothrombin Time / Inr (Pt) (02/25/18 15:08) Magnesium (Mg) (02/25/18 15:08) Ckmb (Isoenzyme) Profile (02/25/18 15:08) Troponin I (02/25/18 15:08) Iv Access Insert/Monitor (02/25/18 15:08) Ecg Monitoring (02/25/18 15:08) Oximetry (02/25/18 15:08) Oxygen Administration (02/25/18 15:08) Chest, Single Ap (02/25/18 15:08) Sodium Chloride 0.9% Flush (Ns Flush) (02/25/18 15:15) Albuterol-Ipratropium Neb (Duoneb Neb) (02/25/18 15:15) Blood Glucose (02/25/18 15:10) Urinalysis - C+S If Indicated (02/25/18 15:10) CKMB (02/25/18 15:55) CKMB% (02/25/18 15:55) Urine Culture (02/25/18 16:33) Sodium Chlor 0.9% 1000 Ml Inj (Ns 1000 M (02/25/18 17:15) Potassium, Serum (K) (02/25/18 17:15) Ceftriaxone Inj (Rocephin Inj) (02/25/18 17:15) Calcium Gluconate Inj (Calcium Gluconate (02/25/18 17:30) Albuterol Concentrated Neb (Albuterol Co (02/25/18 17:30) Sodium Bicarbonate 8.4% Inj (Sodium Bica (02/25/18 17:30) Sodium Polysty Sulfate Liq (Kayexalate L (02/25/18 17:30) Insulin Human Regular Inj (Novolin R Inj (02/25/18 17:30) Dextrose 50% In Daniel (Vial) Inj (D50w (Vi (02/25/18 17:30) Admit Order (Ed Use Only) (02/25/18 17:51) Labs Laboratory Tests Test 02/25/18 15:10 02/25/18 15:55 02/25/18 16:33 02/25/18 17:30 White Blood Count 6.2 TH/MM3 Red Blood Count 3.43 MIL/MM3 Hemoglobin 11.4 GM/DL Hematocrit 35.4 % Mean Corpuscular Volume 103.0 FL Mean Corpuscular Hemoglobin 33.1 PG Mean Corpuscular Hemoglobin Concent 32.2 % Red Cell Distribution Width 15.1 % Platelet Count 178 TH/MM3 Mean Platelet Volume 10.5 FL Neutrophils (%) (Auto) 65.8 % Lymphocytes (%) (Auto) 20.0 % Monocytes (%) (Auto) 10.9 % Eosinophils (%) (Auto) 2.1 % Basophils (%) (Auto) 1.2 % Neutrophils # (Auto) 4.1 TH/MM3 Lymphocytes # (Auto) 1.2 TH/MM3 Monocytes # (Auto) 0.7 TH/MM3 Eosinophils # (Auto) 0.1 TH/MM3 Basophils # (Auto) 0.1 TH/MM3 CBC Comment DIFF FINAL Differential Comment Prothrombin Time 10.7 SEC Prothromb Time International Ratio 1.1 RATIO Activated Partial Thromboplast Time 26.9 SEC B-Type Natriuretic Peptide 350 PG/ML Blood Urea Nitrogen 55 MG/DL Creatinine 1.93 MG/DL Random Glucose 83 MG/DL Total Protein 6.7 GM/DL Albumin 3.0 GM/DL Calcium Level 7.9 MG/DL Magnesium Level 2.4 MG/DL Alkaline Phosphatase 87 U/L Aspartate Amino Transf (AST/SGOT) 18 U/L Alanine Aminotransferase (ALT/SGPT) 11 U/L Total Bilirubin 0.3 MG/DL Sodium Level 144 MEQ/L Potassium Level 6.8 MEQ/L Chloride Level 119 MEQ/L Carbon Dioxide Level 20.5 MEQ/L Anion Gap 5 MEQ/L Estimat Glomerular Filtration Rate 42 ML/MIN Total Creatine Kinase 293 U/L Creatine Kinase MB 6.4 NG/ML Troponin I LESS THAN 0.02 NG/ML Urine Color YELLOW Urine Turbidity CLEAR Urine pH 5.5 Urine Specific [place] 1.017 Urine Protein 30 mg/dL Urine Glucose (UA) NEG mg/dL Urine Ketones NEG mg/dL Urine Occult Blood TRACE Urine Nitrite NEG Urine Bilirubin NEG Urine Urobilinogen LESS THAN 2.0 MG/DL Urine Leukocyte Esterase LARGE Urine RBC 2 /hpf Urine WBC 14 /hpf Urine WBC Clumps RARE Urine Squamous Epithelial Cells 1 /hpf Urine Mucus FEW /lpf Microscopic Urinalysis Comment CULTURE INDICATED MDM Medical Decision Making Medical Screen Exam Complete: Yes Emergency Medical Condition: Yes Medical Record Reviewed: Yes (pmh confirmed) Interpretation(s) CBC & BMP Diagram 02/25/18 15:10 02/25/18 15:55 Total Protein 6.7, Albumin 3.0 L, Calcium Level 7.9 L, Magnesium Level 2.4, Alkaline Phosphatase 87, Aspartate Amino Transf (AST/SGOT) 18, Alanine Aminotransferase (ALT/SGPT) 11 L, Total Bilirubin 0.3 ua with uti Last 24 hours Impressions Chest X-Ray 02/25/18 1508 Signed Impressions: Service Date/Time: January 15:15 - CONCLUSION: Pulmonary venous congestion versus early pulmonary edema. Stable diffuse cardiomegaly. No significant change compared to the prior study. Florentino Cr MD Differential Diagnosis Acute renal failure, anemia, UTI, electrolyte abnormality, CHF Narrative Course Will check blood work, chest x-ray, urinalysis and reevaluate. ED workup with acute renal failure, hyperkalemia and UTI. Given hyperkalemia meds and Rocephin for urinary tract infection. Given IV fluid hydration. Will admit to the hospital for further care and discuss with nephrology. Physician Communication Physician Communication dr galvan will follow dr terrazas agrees to admit Diagnosis Primary Impression: Acute renal failure Qualified Codes: N17.9 - Acute kidney failure, unspecified Additional Impressions: Hyperkalemia UTI (urinary tract infection) Qualified Codes: N39.0 - Urinary tract infection, site not specified Admitting Information Admitting Physician Requests: Admit Shelbie Leos MD Feb 25, 2018 15:24
[2018-02-25 15:27] LABS: AUTOMATED NEUTROPHIL # 4.1 TH/MM3 (1.8-7.7); BASOPHIL # 0.1 TH/MM3 (0-0.2); BASOPHIL % 1.2 % (0.0-2.0); EOSINOPHIL # 0.1 TH/MM3 (0-0.4); EOSINOPHIL % 2.1 % (0.0-4.0); HEMATOCRIT 35.4 % (39.0-51.0); HEMOGLOBIN 11.4 GM/DL (13.0-17.0); LYMPHOCYTE # 1.2 TH/MM3 (1.0-4.8); MEAN CORPUSCULAR HEMOGLOBIN 33.1 PG (27.0-34.0); MEAN CORPUSCULAR HGB CONC 32.2 % (32.0-36.0); MEAN PLATELET VOLUME 10.5 FL (7.0-11.0); MONO % 10.9 % (0.0-8.0); MONOCYTE # 0.7 TH/MM3 (0-0.9); NEUT % 65.8 % (16.0-70.0); PLATELET COUNT 178 TH/MM3 (150-450); RED BLOOD COUNT 3.43 MIL/MM3 (4.50-5.90); RED CELL DISTRIBUTION WIDTH 15.1 % (11.6-17.2); WHITE BLOOD COUNT 6.2 TH/MM3 (4.0-11.0)
--- NOTE | 2018-02-25 15:32 | RADRPT ---
EXAM DATE/TIME: 02/25/2018 15:15 [facility] COMPARISON: CHEST SINGLE AP, September 28, 2017, 15:48. INDICATIONS : Short of breath. MEDICAL HISTORY : Hypertension. Chronic obstructive pulmonary disease. Congestive heart failure. carcinoma of the p rostate. SURGICAL HISTORY : None. ENCOUNTER: Initial ACUITY: 1 day PAIN SCORE: 0/10 LOCATION: Bilateral chest FINDINGS: There is moderate cardiomegaly and prominence of pulmonary vasculature suggestive of pulmonary venous congestion versus early pulmonary edema. These findings are about the same compared to the prior exa mination. No focal areas of parenchymal consolidation. No significant pleural effusions. CONCLUSION: Pulmonary venous congestion versus early pulmonary edema. Stable diffuse cardiomegaly. No significant change compared to the prior study. Florentino Cr MD on February 25, 2018 at 15:29 Board Certified Radiologist. This report was verified electronically.
[2018-02-25 15:39] LABS: INTERNATIONAL NORMALIZED RATIO 1.1 RATIO; PROTHROMBIN TIME - PATIENT 10.7 SEC (9.8-11.6)
[2018-02-25 17:07] LABS: ALKALINE PHOSPHATASE 87 U/L (45-117); ALT (GPT) 11 U/L (12-78); AST (GOT) 18 U/L (15-37); BICARBONATE 20.5 MEQ/L (21.0-32.0); BLOOD UREA NITROGEN 55 MG/DL (7-18); CALCIUM 7.9 MG/DL (8.5-10.1); CHLORIDE 119 MEQ/L (98-107); CREATININE 1.93 MG/DL (0.60-1.30); GLOMERULAR FILTRATION RATE 42 ML/MIN (>89); GLUCOSE,RANDOM 83 MG/DL (74-106); MAGNESIUM 2.4 MG/DL (1.5-2.5); SODIUM (NA) 144 MEQ/L (136-145); TOTAL BILIRUBIN ADULT 0.3 MG/DL (0.2-1.0); TOTAL PROTEIN 6.7 GM/DL (6.4-8.2); TROPONIN I LESS THAN 0.02 NG/ML (0.02-0.05)
[2018-02-25 17:11] LABS: BILIRUBIN, URINE NEG (NEG); BLOOD, URINE TRACE (NEG); GLUCOSE,URINE NEG (NEG); KETONE, URINE NEG (NEG); MUCUS URINE FEW /lpf (OCC); NITRITE,URINE NEG (NEG); PH, URINE 5.5 (5.0-8.5); SQUAMOUS EPITHELIAL CELL URINE 1 /hpf (0-5); URINE COLOR YELLOW (YELLW/STRAW); URINE LEUKOCYTE ESTERASE LARGE (NEG); WHITE BLOOD CELL CLUMPS RARE
[2018-02-25] MEDS ORDERED: SODIUM CHLOR 0.9% 1000 ML INJ 1,000 ML IV ONE (17:15)
[2018-02-25] MEDS ORDERED: cefTRIAXone INJ 1,000 MG in SODIUM CHLORIDE 0.9% INJ 100 ML IV ONE (17:15)
[2018-02-25] MEDS ORDERED: RESP: ALBUTEROL CONC 2.5 MG/0.5 ML NEB INH ONE (17:30)
[2018-02-25] MEDS ORDERED: CALCIUM GLUCONATE 10% 1 GM/10 ML VIAL IV PUSH ONE (17:30)
[2018-02-25] MEDS ORDERED: SODIUM BICARBONATE 8.4% SOLN 50 MEQ/50 ML VIAL SLOW IVP ONE (17:30)
[2018-02-25] MEDS ORDERED: SODIUM POLYSTYRENE SULFONATE SUSP 15 GM/60 ML CUP PO ONE ×2 (17:30→19:15)
[2018-02-25] MEDS ORDERED: DEXTROSE 50% IN WATER 50 ML VIAL(D50) IV PUSH ONE (17:30)
[2018-02-25] MEDS ORDERED: INSULIN HUMAN REGULAR 1,000 UNITS/10 ML VIAL IV PUSH ONE (17:30)
[2018-02-25] MEDS ORDERED: SODIUM CHLOR 0.9% 1000 ML INJ 1,000 ML IV SCH (18:00)
[2018-02-25] MEDS ORDERED: NALOXONE HCL 0.4 MG/ML AMP IV PUSH PRN (18:15)
[2018-02-25] MEDS ORDERED: BISACODYL 10 MG SUPP RECTAL PRN (18:15)
[2018-02-25] MEDS ORDERED: ONDANSETRON HCL 4 MG/2 ML VIAL IVP PRN ×2 (18:15→19:45)
[2018-02-25] MEDS ORDERED: MAGNESIUM HYDROXIDE SUSP 30 ML CUP PO PRN (18:15)
[2018-02-25] MEDS ORDERED: SENNOSIDES 8.6 MG TAB PO PRN (18:15)
[2018-02-25] MEDS ORDERED: LACTULOSE SYRUP 20 GM/30 ML CUP PO PRN (18:15)
[2018-02-25] MEDS ORDERED: SODIUM CHLORIDE 0.9% FLUSH 10 ML FLUSH IV FLUSH PRN (18:15)
[2018-02-25 18:30] VITALS: BP 164/79; PULSE 87; RESP 35; O2SAT 100
--- NOTE | 2018-02-25 19:07 | MB ---
cc: Urszula Quesada MD DATE: 02/25/2018 REASON FOR CONSULTATION: Elevated BUN and creatinine and hyperkalemia. HISTORY OF PRESENT ILLNESS: This is a 67-year-old male with a past medical history of hypertension, hyperlipidemia, chronic kidney disease, history of acute kidney injury, congestive heart failure, chronic obstructive pulmonary disease, history of lymphedema of the leg, morbid obesity, came to the hospital with generalized weakness. I was called to see the patient because of very high BUN and creatinine and high potassium. The patient has a history of chronic kidney disease and he has recurrent acute kidney injury. The patient now came with a creatinine of 1.9 and a potassium of 6.8. The patient previously has creatinine in the range of 1.4-1.5 most of the time, and he had acute kidney injury in April of last year where the creatinine went up to 3.8. He is not following with any technology methodology consultant according to him on a regular basis. The patient is not a very good historian. Most of the history was taken from patient's chart and some from the patient himself. According to him, he was feeling weak and tired, and he has worsening shortness of breath and he came to the hospital. He denies taking any nonsteroid anti-inflammatory drugs. He denies taking any diuretics. He has this swelling in the legs and he has wound in both legs, for which, according to him, he is doing the dressing by himself. There is no documentation of any antibiotics for him. PAST MEDICAL HISTORY: Hypertension, ischemic heart disease, congestive heart failure, chronic kidney disease, morbid obesity, lymphedema of the legs with wound in the legs, chronic obstructive pulmonary disease, diabetes mellitus. REVIEW OF SYSTEMS: The patient has generalized weakness, feeling tired. Denies any history of headache, dizziness. He has no history of fever. Has worsening shortness of breath. No chest pain. No palpitation. Mild cough. No abdominal pain, no vomiting, no diarrhea. He has wound on the legs and swelling in the legs, on which he has been putting dressing, according to him, by himself. SOCIAL HISTORY: He smoked 1 pack per day. There is no history of heavy alcoholism. FAMILY HISTORY: Noncontributory. ALLERGIES: HE HAS NO KNOWN DRUG ALLERGIES. MEDICATIONS: Currently, he is on the following medications: Normal saline at 100 mL an hour, Carmelita-Colace 1 tablet b.i.d., Zofran as needed, Dulcolax as needed, lactulose as needed. The patient has been getting now Kayexalate. He received calcium gluconate and he received sodium bicarbonate. PHYSICAL EXAMINATION: GENERAL: Patient is awake. He is currently with a Ventimask in mild respiratory distress. VITAL SIGNS: His last blood pressure is 148/71, temperature 97.8, oxygen saturation on 2 L nasal cannula is 99%. HEENT: Pupils are mid, constricted. Nonicteric sclerae. Conjunctivae are pale. NECK: Supple. JVD is not elevated. LUNGS: Bilateral good with good air entry with scattered wheezing. HEART: S1, S2. Regular rhythm. ABDOMEN: Distended, obese, soft, lax. There is no tenderness. EXTREMITIES: He has bilateral lymphedema and the lower half of both legs are covered with a dressing, which is dry and not soaked. INVESTIGATIONS: WBC count is 6.2, hemoglobin 11.4, platelet count 178, neutrophils 65.8%. Sodium is 144, potassium 6.8, chloride 119, bicarbonate 20.5, BUN 55, creatinine 1.9, AST is 18, ALT is 11. Creatinine kinase is 293. INR 1.0. Urinalysis showing trace protein with large leukocyte esterase, wbc 14. He has a free kappa and lambda chain positive during last admission. Urine culture pending. IMAGING STUDIES: The patient has a chest x-ray done, which shows his lung agrawal are clear with cardiomegaly and some increased vascular congestion. An ultrasound of the kidney was done in April when he was admitted and it shows that he has right kidney 12.7 and the left kidney is 11.7 cm. There was no stone or hydronephrosis. ASSESSMENT AND PLAN: 1. Chronic kidney disease with some acute worsening. 2. Metabolic acidosis and severe hyperkalemia. 3. Possible urinary tract infection. 4. Lymphedema of the leg and wounds on the leg. 5. Hypertension. 6. Ischemic heart disease and congestive heart failure. The patient received the treatment for hyperkalemia. I will change his IV fluids and give him sodium bicarbonate. I will also put him on ceftriaxone for possibility of urinary tract infection. He has chronic kidney disease, possibly hypertensive or renovascular disease or possibility of diabetic nephropathy and developed acute worsening now, could be prerenal. Agree with gentle hydration since he has some increased vascular congestion in the chest x-ray and watch for any fluid overload status. Follow the urine output and BMP with a potassium level. Thank you for the consultation. I will follow the patient while he is in the hospital. MD GRAY Teague/LUIGI , 06:25 PM , 07:05 PM
--- NOTE | 2018-02-25 19:40 | HHI.HP ---
HPI Service [facility] Physician Dany Chopra, DO Admission Diagnosis hyperkalemia, acute renal failure, uti Diagnoses: (1) Hyperkalemia Diagnosis: Principal (2) CHRISTAL (acute kidney injury) Diagnosis: Principal (3) UTI (urinary tract infection) Diagnosis: Principal (4) CHF (congestive heart failure) Diagnosis: Principal (5) Generalized weakness Diagnosis: Principal (6) Wound, open, leg Diagnosis: Principal Travel History International Travel<30 Days: No Contact w/Intl Traveler <30 Da: No Traveled to Known Affected Are: No History of Present Illness This is a 67-year-old male with a PMH of Morbid Obesity, Prostate CA, HTN, Hyperlipidemia, COPD, Gout, CHF (Echo 09/29/2017 w/ EF 50-55%) who presented to the ER w/ complaints of generalized weakness and bilateral lower extremity pain x1 day. States he ran out of his medications approx 3wks ago, has noticed worsening weakness, unable to pull himself out of bed today. Notes chronic lower extremity wounds for approx 1 year, now w/ worsening drainage. Denies fever or chills. On arrival, BP 148/71, HR 60, O2 sat 98% on 2L NC, Afebrile. WBC normal. K+ 6.8. Creatinine 1.93, previously one-point 03/03 and 09/30/17. Troponin negative. INR 1.1. UA positive UTI. CXR pulmonary venous congestion , early pulmonary edema. S/p Insulin, D50, Ca and Kayexalate in ER. Dr. Quesada consulted for CHRISTAL and Hyperkalemia. S/p Rocephin for UTI Review of Systems Except as stated in HPI: all other systems reviewed are Neg ROS: 14 point review of systems otherwise negative. Past Family Social History Past Medical History PMH: Morbid Obesity, Prostate CA, HTN, Hyperlipidemia, COPD, Gout, CHF (Echo w/ EF 50-55%) Past Surgical History PAST SURGICAL HISTORY: Right Hand Surgery Allergies: Coded Allergies: *MDRO Multi-Drug Resistant Organism (Verified Adverse Reaction, Unknown, ) MRSA (wounds) - 03/20/13 MRSA PCR Screen NEGATIVE - 03/19/16, 03/21/2016 CLEARED PER INFECTION CONTROL Family History PAST FAMILY HISTORY: Reviewed. No h/o DM or CAD Social History PAST SOCIAL HISTORY: Negative for alcohol or drugs. Positive for tobacco Physical Exam Vital Signs Vital Signs Date Time Temp Pulse Resp B/P (MAP) Pulse Ox O2 Delivery O2 Flow Rate FiO2 02/25/18 18:30 87 35 164/79 (107) 100 02/25/18 15:07 18 99 Nasal Cannula 2.00 02/25/18 15:02 97.8 60 19 148/71 (96) 98 Physical Exam PE: GENERAL: Morbidly obese middle-aged black male in no acute distress. HEENT: PERRLA, EOMI. No scleral icterus or conjunctival pallor. No lid lag or facial droop. CARDIOVASCULAR: Regular rate and rhythm. No obvious murmurs to auscultation. No chest tenderness to palpation. RESPIRATORY: No obvious rhonchi or wheezing. Clear to auscultation. Breath sounds equal bilaterally. GASTROINTESTINAL: Abdomen soft, non-tender, nondistended. BS normal. MUSCULOSKELETAL: Extremities without clubbing, cyanosis, or edema. No obvious deformities. Chronic skin changes/thickening w/ foul smelling drainage NEUROLOGICAL: Awake, alert and oriented x4. No focal neurologic deficits. Moving both upper and lower extremities spontaneously. Laboratory Laboratory Tests Test 02/25/18 15:10 02/25/18 15:55 02/25/18 16:33 02/25/18 17:30 White Blood Count 6.2 Red Blood Count 3.43 Hemoglobin 11.4 Hematocrit 35.4 Mean Corpuscular Volume 103.0 Mean Corpuscular Hemoglobin 33.1 Mean Corpuscular Hemoglobin Concent 32.2 Red Cell Distribution Width 15.1 Platelet Count 178 Mean Platelet Volume 10.5 Neutrophils (%) (Auto) 65.8 Lymphocytes (%) (Auto) 20.0 Monocytes (%) (Auto) 10.9 Eosinophils (%) (Auto) 2.1 Basophils (%) (Auto) 1.2 Neutrophils # (Auto) 4.1 Lymphocytes # (Auto) 1.2 Monocytes # (Auto) 0.7 Eosinophils # (Auto) 0.1 Basophils # (Auto) 0.1 CBC Comment DIFF FINAL Differential Comment Prothrombin Time 10.7 Prothromb Time International Ratio 1.1 Activated Partial Thromboplast Time 26.9 B-Type Natriuretic Peptide 350 Blood Urea Nitrogen 55 Creatinine 1.93 Random Glucose 83 Total Protein 6.7 Albumin 3.0 Calcium Level 7.9 Magnesium Level 2.4 Alkaline Phosphatase 87 Aspartate Amino Transf (AST/SGOT) 18 Alanine Aminotransferase (ALT/SGPT) 11 Total Bilirubin 0.3 Sodium Level 144 Potassium Level 6.8 6.8 Chloride Level 119 Carbon Dioxide Level 20.5 Anion Gap 5 Estimat Glomerular Filtration Rate 42 Total Creatine Kinase 293 Creatine Kinase MB 6.4 Troponin I LESS THAN 0.02 Urine Color YELLOW Urine Turbidity CLEAR Urine pH 5.5 Urine Specific [place] 1.017 Urine Protein 30 Urine Glucose (UA) NEG Urine Ketones NEG Urine Occult Blood TRACE Urine Nitrite NEG Urine Bilirubin NEG Urine Urobilinogen LESS THAN 2.0 Urine Leukocyte Esterase LARGE Urine RBC 2 Urine WBC 14 Urine WBC Clumps RARE Urine Squamous Epithelial Cells 1 Urine Mucus FEW Microscopic Urinalysis Comment CULTURE INDICATED Date/Time Source Procedure Growth Status 02/25/18 16:33 Urine Clean Catch Urine Culture Pending Received Result Diagram: 02/25/18 1510 02/25/18 1730 Caprini VTE Risk Assessment Caprini VTE Risk Assessment: Mod/High Risk (score >= 2) Caprini Risk Assessment Model Point Value = 1 Point Value = 2 Point Value = 3 Point Value = 5 Age 41-60 Minor surgery BMI > 25 kg/m2 Swollen legs Varicose veins or History of unexplained or recurrent spontaneous Oral contraceptives or hormone replacement Sepsis (< 1 month) Serious lung disease, including pneumonia (< 1 month) Abnormal pulmonary function Acute myocardial infarction Congestive heart failure (< 1 month) History of inflammatory bowel disease Medical patient at bed rest Age 61-74 Arthroscopic surgery Major open surgery (> 45 min) Laparoscopic surgery (> 45 min) Malignancy Confined to bed (> 72 hours) Immobilizing plaster cast Central venous access Age >= 75 History of VTE Family history of VTE Factor V Leiden Prothrombin [id number] Lupus anticoagulant Anticardiolipin antibodies Elevated serum homocysteine Heparin-induced thrombocytopenia Other congenital or acquired thrombophilia Stroke (< 1 month) Elective arthroplasty Hip, pelvis, or leg fracture Acute spinal cord injury (< 1 month) Prophylaxis Regimen Total Risk Factor Score Risk Level Prophylaxis Regimen 0-1 Low Early ambulation 2 Moderate Order ONE of the following: *Sequential Compression Device (SCD) *Heparin 5000 units SQ BID 3-4 Higher Order ONE of the following medications: *Heparin 5000 units SQ TID *Enoxaparin/Lovenox 40 mg SQ daily (WT < 150 kg, CrCl > 30 mL/min) *Enoxaparin/Lovenox 30 mg SQ daily (WT < 150 kg, CrCl > 10-29 mL/min) *Enoxaparin/Lovenox 30 mg SQ BID (WT < 150 kg, CrCl > 30 mL/min) AND/OR *Sequential Compression Device (SCD) 5 or more Highest Order ONE of the following medications: *Heparin 5000 units SQ TID (Preferred with Epidurals) *Enoxaparin/Lovenox 40 mg SQ daily (WT < 150 kg, CrCl > 30 mL/min) *Enoxaparin/Lovenox 30 mg SQ daily (WT < 150 kg, CrCl > 10-29 mL/min) *Enoxaparin/Lovenox 30 mg SQ BID (WT < 150 kg, CrCl > 30 mL/min) AND *Sequential Compression Device (SCD) Assessment and Plan Problem List: (1) Hyperkalemia ICD Code: E87.5 - Hyperkalemia Status: Acute (2) CHRISTAL (acute kidney injury) ICD Code: N17.9 - Acute kidney failure, unspecified (3) UTI (urinary tract infection) ICD Code: N39.0 - Urinary tract infection, site not specified Status: Acute (4) Generalized weakness ICD Code: R53.1 - Weakness (5) CHF (congestive heart failure) ICD Code: I50.9 - Heart failure, unspecified (6) Wound, open, leg ICD Code: S81.809A - Unspecified open wound, unspecified lower leg, initial encounter Assessment and Plan A/P: 1. Hyperkalemia: K+ 6.8, s/p Insulin/D50/Ca/Kayexalate, repeat K+ 6.8, will give additional Kayexalate, repeat K+ this evening. Monitor I/O. Telemetry. 2. CHRISTAL: Creatinine 1.93, previously 1.44 on 09/30/17. IVF for hydration- caution with CHF/fluid overload. Monitor I/O. Dr. Quesada consulted for further recommendations. 3. UTI: U/a w/ UTI, follow up cultures, continue IV Rocephin, IVF, caution w/ CHF 4. CHF: Acute on Chronic. Diastolic. Echo 09/29/17 w/ EF 50-55%, CXR w/ pulmonary edema, images reviewed by me. Hold Bumex/Metolazone for now in light of renal insufficiency and need for hydration. 5. LE Wound: Acute on Chronic. +foul smelling discharge. Obtain Wound Cultures. Consult Wound Management for further evaluation/recommendations. 6. Generalized Weakness: Likely secondary to all of the above, consult PT for eval/tx. 7. DVT Prophylaxis: Heparin sq 8. Social work for DC planning as needed. 9. Case discussed at length with the ER physician, lab/record/imaging reviewed by me. Physician Certification 2 Midnight Certification Type: Admission for Inpatient Services Order for Inpatient Services The services are ordered in accordance with Medicare regulations or non- Medicare payer requirements, as applicable. In the case of services not specified as inpatient-only, they are appropriately provided as inpatient services in accordance with the 2-midnight benchmark. Estimated LOS (days): 2 days is the estimated time the patient will need to remain in the hospital, assuming treatment plan goals are met and no additional complications. Post-Hospital Plan: Not yet determined Problem Qualifiers (1) UTI (urinary tract infection): Qualified Codes: N39.0 - Urinary tract infection, site not specified Yudelka Burns MD Feb 25, 2018 19:40
[2018-02-25] MEDS ORDERED: ACETAMINOPHEN 325 MG TAB PO PRN (19:45)
[2018-02-25] MEDS ORDERED: ACETAMINOPHEN/HYDROcodone 325 MG/5 MG TAB PO PRN (19:45)
[2018-02-25 20:13] VITALS: BP 143/87; PULSE 71; RESP 20; O2SAT 95
[2018-02-25] MEDS: cefTRIAXone INJ 1,000 MG in SODIUM CHLORIDE 0.9% INJ 100 ML IV SCH (20:17)
[2018-02-25] MEDS: BUDESONIDE-FORMOTEROL 160/4.5 MCG INHALER INH SCH (21:00)
[2018-02-25] MEDS ORDERED: SODIUM CHLORIDE 0.9% FLUSH 10 ML FLUSH IV FLUSH SCH (21:00)
[2018-02-25] MEDS: DOCUSATE SODIUM 50 MG/SENNA 8.6 MG TAB PO SCH (21:00)
[2018-02-25 21:25] VITALS: BP 155/98; PULSE 78; RESP 18; TEMP 98.3; O2SAT 96
[2018-02-25] MEDS: METOPROLOL TARTRATE 25 MG TAB PO SCH (22:17)
[2018-02-25] MEDS: SODIUM CHLORIDE 0.9% FLUSH 10 ML FLUSH IV FLUSH SCH (22:18)
[2018-02-25 23:32] VITALS: BP 142/81; PULSE 63; RESP 18; TEMP 97.9; O2SAT 99
[2018-02-26] MEDS: SODIUM POLYSTYRENE SULFONATE SUSP 15 GM/60 ML CUP PO SCH ×5 (03:00→21:07)
[2018-02-26 03:43] VITALS: BP 162/74; PULSE 73; RESP 18; TEMP 97.5; O2SAT 95
[2018-02-26 07:58] VITALS: BP 160/80; PULSE 65; RESP 24; TEMP 97.6; O2SAT 97
--- NOTE | 2018-02-26 08:28 | HHI.PR ---
Subjective Remarks Follow-up on patient with CHF exacerbation and hyperkalemia. Patient seen and examined. Patient is extremely lethargic. He does wake to voice but quickly falls back asleep again snoring. States he is hurting all over. Denies any complaints of chest pain. Reports his breathing is about the same. He denies any fever or chills. Objective Vitals Vital Signs Date Time Temp Pulse Resp B/P (MAP) Pulse Ox O2 Delivery O2 Flow Rate FiO2 02/26/18 07:58 97.6 65 24 160/80 (106) 97 02/26/18 03:43 97.5 73 18 162/74 (103) 95 02/25/18 23:32 97.9 63 18 142/81 (101) 99 02/25/18 21:25 98.3 78 18 155/98 (117) 96 02/25/18 21:04 02/25/18 20:13 71 20 143/87 (105) 95 Nasal Cannula 2.00 02/25/18 18:30 87 35 164/79 (107) 100 02/25/18 15:07 99 Nasal Cannula 2.00 02/25/18 15:07 18 99 Nasal Cannula 2.00 02/25/18 15:02 97.8 60 19 148/71 (96) 98 I/O 02/25/18 02/25/18 02/25/18 02/26/18 02/26/18 02/26/18 07:00 15:00 23:00 07:00 15:00 23:00 Intake Total 1100 ml Balance 1100 ml Intake IV Total 1100 ml # Voids 2 Result Diagram: 02/25/18 1510 02/26/18 0035 Imaging Last Impressions Chest X-Ray 02/25/18 1508 Signed Impressions: Service Date/Time: January 15:15 - CONCLUSION: Pulmonary venous congestion versus early pulmonary edema. Stable diffuse cardiomegaly. No significant change compared to the prior study. Florentino Cr MD Objective Remarks GENERAL: Morbidly obese middle-aged black male in no acute distress. Extremely lethargic. Does awaken to voice but quickly falls right back to sleep and begins snoring. HEENT: PERRLA, EOMI. No scleral icterus or conjunctival pallor. No lid lag or facial droop. CARDIOVASCULAR: Distant heart sounds. No obvious murmurs to auscultation. No chest tenderness to palpation. RESPIRATORY: No obvious rhonchi or wheezing. Clear to auscultation but poor effort. Breath sounds equal bilaterally. GASTROINTESTINAL: Abdomen soft, non-tender, nondistended. BS normal. MUSCULOSKELETAL: Extremities without clubbing or cyanosis. No obvious deformities. Edematous BLEs with chronic skin changes/thickening w/ foul smelling drainage. NEUROLOGICAL: Lethargic, continuously falling asleep and snoring through exam. Not following commands. Medications and IVs Current Medications Medications (Trade) Dose Ordered Sig/Marleny Route Start Time Stop Time Status Last Admin (Zofran Inj) 4 mg Q6H PRN IVP 02/25/18 18:15 (Narcan Inj) 0.4 mg UNSCH PRN IV PUSH 02/25/18 18:15 (Carmelita-Colace) 1 tab BID PO 02/25/18 21:00 (Milk Of Magnesia Liq) 30 ml Q12H PRN PO 02/25/18 18:15 (Senokot) 17.2 mg Q12H PRN PO 02/25/18 18:15 (Dulcolax Supp) 10 mg DAILY PRN RECTAL 02/25/18 18:15 (Lactulose Liq) 30 ml DAILY PRN PO 02/25/18 18:15 Sodium Bicarbonate 50 meq/Sodium Chloride 1,050 ml @ 100 mls/hr [id number] IV 02/26/18 20:00 Ceftriaxone Sodium 1000 mg/ Sodium Chloride 100 ml @ 200 mls/hr Q24H IV 02/25/18 20:00 02/25/18 20:17 (Duoneb Neb) 1 ampule Q4HR NEB PRN NEB 02/25/18 19:45 (NS Flush) 2 ml UNSCH PRN IV FLUSH 02/25/18 19:45 (NS Flush) 2 ml BID IV FLUSH 02/25/18 21:00 02/25/18 22:18 (Zofran Inj) 4 mg Q6H PRN IVP 02/25/18 19:45 (Heparin Inj) 5,000 units Q12H SQ 02/26/18 09:00 (Tylenol) 650 mg Q6H PRN PO 02/25/18 19:45 (Pepin 5-325 Mg) 1 tab Q4H PRN PO 02/25/18 19:45 (Morphine Inj) 2 mg Q3H PRN IV PUSH 02/25/18 19:45 (Norvasc) 10 mg DAILY PO 02/26/18 09:00 (Symbicort 160-4.5 Mcg Inh) 1 puff Q12HR INH 02/25/18 21:00 (Lopressor) 25 mg Q12HR PO 02/25/18 21:00 02/25/18 22:17 (Protonix) 40 mg DAILY PO 02/26/18 09:00 (Kayexalate Liq) 15 gm QID PO 02/26/18 03:00 02/27/18 03:00 A/P Problem List: (1) Hyperkalemia ICD Code: E87.5 - Hyperkalemia Status: Acute (2) CHRISTAL (acute kidney injury) ICD Code: N17.9 - Acute kidney failure, unspecified (3) UTI (urinary tract infection) ICD Code: N39.0 - Urinary tract infection, site not specified Status: Acute (4) Generalized weakness ICD Code: R53.1 - Weakness (5) CHF (congestive heart failure) ICD Code: I50.9 - Heart failure, unspecified (6) Wound, open, leg ICD Code: S81.809A - Unspecified open wound, unspecified lower leg, initial encounter Assessment and Plan A/P: Encephalopathy/Lethargy -patient is afebrile, white count WNL -hold all sedating medications -ABGs ordered -obtain ammonia level -obtain blood sugar -continue on IV Ceftriaxone for UTI Hyperkalemia: -K+ 6.8, s/p Insulin/D50/Ca/Kayexalate -repeat K+ 6.5, patient received dose of Kayexalate and IV Bicarb. Repeat K at 1500. -avoid potassium containing foods -continuous cardiac monitoring -monitor K closely CHRISTAL: -Creatinine 1.93, previously 1.44 on 09/30/17. -creatinine trending down, now 1.77 -Nephrology following, appreciate assistance. -Renal US unremarkable -IVF for hydration-caution with CHF/fluid overload -avoid nephrotoxic agents -Monitor I/O -continue to monitor renal indices UTI: -U/a w/ UTI -follow up cultures show immature growth, reincubate -continue IV Rocephin CHF: Acute on Chronic. Diastolic. Echo 09/29/17 w/ EF 50-55% -CXR w/ pulmonary edema. -Continue to hold Bumex/Metolazone for now in light of renal insufficiency and need for hydration. -BNP 350, repeat pending -maintain adequate blood pressure control LE Wound: Acute on Chronic. +foul smelling discharge. -Obtain Wound Cultures. -Consult Wound Management for further evaluation/recommendations. -start on IV Vancomycin, renally dosed, pharmacy to dose COPD, not in acute exacerbation - Generalized Weakness: Likely secondary to all of the above -Consult PT for eval/tx. DVT Prophylaxis: Heparin sq Discharge Planning Pending clinical course Problem Qualifiers (1) UTI (urinary tract infection): Qualified Codes: N39.0 - Urinary tract infection, site not specified Lata Grijalva Feb 26, 2018 08:28
[2018-02-26] MEDS: BUDESONIDE-FORMOTEROL 160/4.5 MCG INHALER INH SCH ×2 (09:00→21:00)
[2018-02-26] MEDS: DOCUSATE SODIUM 50 MG/SENNA 8.6 MG TAB PO SCH ×2 (09:00→21:07)
[2018-02-26 09:54] LABS: AUTOMATED NEUTROPHIL # 4.4 TH/MM3 (1.8-7.7); BASOPHIL # 0.1 TH/MM3 (0-0.2); EOSINOPHIL # 0.1 TH/MM3 (0-0.4); EOSINOPHIL % 1.3 % (0.0-4.0); HEMOGLOBIN 10.9 GM/DL (13.0-17.0); LYMPH % 15.8 % (9.0-44.0); MEAN CELL VOLUME 105.4 FL (80.0-100.0); MEAN CORPUSCULAR HEMOGLOBIN 32.8 PG (27.0-34.0); MEAN CORPUSCULAR HGB CONC 31.1 % (32.0-36.0); MEAN PLATELET VOLUME 10.3 FL (7.0-11.0); MONOCYTE # 0.8 TH/MM3 (0-0.9); NEUT % 69.9 % (16.0-70.0); PLATELET COUNT 166 TH/MM3 (150-450); RED BLOOD COUNT 3.32 MIL/MM3 (4.50-5.90); RED CELL DISTRIBUTION WIDTH 15.2 % (11.6-17.2); WHITE BLOOD COUNT 6.3 TH/MM3 (4.0-11.0)
[2018-02-26 10:21] LABS: AST (GOT) 19 U/L (15-37); BICARBONATE 22.2 MEQ/L (21.0-32.0); BLOOD UREA NITROGEN 55 MG/DL (7-18); CHLORIDE 117 MEQ/L (98-107); CREATININE 1.77 MG/DL (0.60-1.30); GLOMERULAR FILTRATION RATE 47 ML/MIN (>89); GLUCOSE,RANDOM 98 MG/DL (74-106); SODIUM (NA) 144 MEQ/L (136-145)
[2018-02-26 10:22] LABS: ALT (GPT) 11 U/L (12-78)
[2018-02-26 10:25] LABS: ALKALINE PHOSPHATASE 90 U/L (45-117); TOTAL BILIRUBIN ADULT 0.4 MG/DL (0.2-1.0); TOTAL PROTEIN 6.9 GM/DL (6.4-8.2)
[2018-02-26] MEDS ORDERED: SODIUM BICARBONATE 8.4% INJ 50 MEQ/50 ML SYR IV PUSH ONE (10:45)
[2018-02-26] MEDS ORDERED: SODIUM POLYSTYRENE SULFONATE SUSP 15 GM/60 ML CUP PO ONE ×2 (11:00→17:30)
--- NOTE | 2018-02-26 11:31 | EKG ---
Date Performed: 02/25/2018 Time Performed: 15:07:13 PTAGE: 67 years EKG: Sinus rhythm LOW QRS VOLTAGE INFERIOR MYOCARDIAL INFARCTION ABNORMAL ECG PREVIOUS TRACING 09/28/17 Since the previous tracing, no significant change noted DOCTOR: Ji Kelley Interpretating Date/Time 02/26/2018 11:27:14
[2018-02-26] MEDS: PANTOPRAZOLE SOD 40 MG DELAYED RELEASE TAB PO SCH (11:32)
[2018-02-26] MEDS: HEPARIN SODIUM - SQ 10,000 UNITS/ML VIAL SQ SCH ×2 (11:34→21:08)
[2018-02-26] MEDS: METOPROLOL TARTRATE 25 MG TAB PO SCH ×2 (11:35→21:07)
[2018-02-26] MEDS: SODIUM CHLORIDE 0.9% FLUSH 10 ML FLUSH IV FLUSH SCH ×2 (11:35→21:07)
[2018-02-26 12:57] VITALS: BP 142/75; PULSE 75; RESP 22; TEMP 97.5; O2SAT 96
--- NOTE | 2018-02-26 13:18 | HHI.NPPN ---
Subjective Complaints: Shortness of Breath General Problems: Edema, Hypertension Renal Failure: Chronic, Acute History of Present Illness This is a 67-year-old male with a past medical history of hypertension, hyperlipidemia, chronic kidney disease, history of acute kidney injury, congestive heart failure, chronic obstructive pulmonary disease, history of lymphedema of the leg, morbid obesity, came to the hospital with generalized weakness. Nephrology was called to see the patient because of very high BUN and creatinine and high potassium. The patient has a history of chronic kidney disease and he has recurrent acute kidney injury. The patient now came with a creatinine of 1.9 and a potassium of 6.8. The patient previously has creatinine in the range of 1.4-1.5 most of the time, and he had acute kidney injury in April of last year where the creatinine went up to 3.8. He is not following with any chartered financial analyst according to him on a regular basis. The patient is not a very good historian. Most of the history was taken from patient's chart and some from the patient himself. According to him, he was feeling weak and tired, and he has worsening shortness of breath and he came to the hospital. He denies taking any nonsteroid anti- inflammatory drugs. He denies taking any diuretics. He has this swelling in the legs and he has wound in both legs, for which, according to him, he is doing the dressing by himself. There is no documentation of any antibiotics for him. Additional Remarks Patient reports that he feels SOB. Lower extremity edema. (Alana Petty) Review of Systems General Constitutional: Fatigue (Alana Petty) Respiratory Lungs: SOB (Alana Petty) Cardiovascular Cardiac: Chest Pain (Alana Petty) Gastrointestinal Gastrointestinal: Abdominal Pain, Nausea & Vomiting (Alana Petty) Objective Data Data Vital Signs Date Time Temp Pulse Resp B/P (MAP) Pulse Ox O2 Delivery O2 Flow Rate FiO2 02/26/18 07:58 97.6 65 24 160/80 (106) 97 02/26/18 03:43 97.5 73 18 162/74 (103) 95 02/25/18 23:32 97.9 63 18 142/81 (101) 99 02/25/18 21:25 98.3 78 18 155/98 (117) 96 02/25/18 21:04 02/25/18 20:13 71 20 143/87 (105) 95 Nasal Cannula 2.00 02/25/18 18:30 87 35 164/79 (107) 100 02/25/18 15:07 99 Nasal Cannula 2.00 02/25/18 15:07 18 99 Nasal Cannula 2.00 02/25/18 15:02 97.8 60 19 148/71 (96) 98 (Alana Petty) -: 02/26/18 0908 02/26/18 0908 Microbiology 02/25/18 Urine Culture, Received Pending Imaging Last Impressions Chest X-Ray 02/25/18 1508 Signed Impressions: Service Date/Time: , February 25, 2018 15:15 - CONCLUSION: Pulmonary venous congestion versus early pulmonary edema. Stable diffuse cardiomegaly. No significant change compared to the prior study. Florentino Cr MD (Alana Petty) Physical Exam General Appearance: No Acute Distress, Obese (Alana Petty) Pulmonary Resp Exam: Breath Sounds Equal, No Distress, Decreased Bases (Alana Petty) Cardiology CV Exam: Regular (Alana Petty) Gastrointestinal/Abdomen GI Exam: Soft, Non-Tender (Alana Petty) Genitourinary Exam: Flank Non-Tender (Alana Petty) Integumentary Skin Exam: Clear, Warm (Alana Petty) Extremeties Extremities Exam: Moderate Edema (Alana Petty) Neurologic Neuro Exam: Alert, Awake (Alana Petty) Psychiatric Psych Exam: Appropriate Responses (Alana Petty) Assessment/Plan Discussed Condition With: Patient Problem List: (1) CHRISTAL (acute kidney injury) ICD Codes: N17.9 - Acute kidney failure, unspecified Plan: Acute Kidney injury possible related to prerenal CKD possibly realted to HTN or renovascular disease. Creatinine improving at 1.77 from 1.93 Hyperkalemia persistent Plan Continue IVF and monitor carefully for fluid overload. Continue ceftriaxone C+S is pending Hyperkalemia at 6.5 sodium bicarbonate and Kayexalate given recheck at 1500 Follow the urine output and BMP with a potassium level. Renal US ordered (2) Hyperkalemia ICD Codes: E87.5 - Hyperkalemia Status: Acute Plan: Sodium bicarbonate and Kayexalate given Recheck at 1500 (3) UTI (urinary tract infection) ICD Codes: N39.0 - Urinary tract infection, site not specified Status: Acute Plan: Continue ceftriaxone culture pending. (Alana Petty) Problem List: (1) CHRISTAL (acute kidney injury) ICD Codes: N17.9 - Acute kidney failure, unspecified Plan: Acute Kidney injury possible related to prerenal CKD possibly realted to HTN or renovascular disease. Creatinine improving at 1.77 from 1.93 Hyperkalemia persistent Plan Continue IVF and monitor carefully for fluid overload. Continue ceftriaxone C+S is pending Hyperkalemia at 6.5 sodium bicarbonate and Kayexalate given recheck at 1500 Follow the urine output and BMP with a potassium level. Renal US ordered Patient seen and examined, agree with above. Renal U/S noted. K is still elevated, Kayexalate, check K in the urine. (2) Hyperkalemia ICD Codes: E87.5 - Hyperkalemia Status: Acute Plan: Sodium bicarbonate and Kayexalate given Recheck at 1500 (3) UTI (urinary tract infection) ICD Codes: N39.0 - Urinary tract infection, site not specified Status: Acute Plan: Continue ceftriaxone culture pending. (Mike Quesada MD) Problem Qualifiers (1) UTI (urinary tract infection): Qualified Codes: N39.0 - Urinary tract infection, site not specified Alana Petty Feb 26, 2018 13:18 Mike Quesada MD Feb 26, 2018 18:40
--- NOTE | 2018-02-26 14:00 | RADRPT ---
EXAM DATE/TIME: 02/26/2018 14:30 [facility] COMPARISON: US KIDNEY/RENAL/BLADDER, May 24, 2017, 16:31. INDICATIONS : Increased BUN/Creatinine. MEDICAL HISTORY : Hypertension. Chronic obstructive pulmonary disease. Gastroesophageal reflux disease. Syncope. Conges tive heart failure. Morbid obesity. Renal failure. Diabetes. Prostate cancer. MRSA. SURGICAL HISTORY : Carpal tunnel. ENCOUNTER: Initial ACUITY: 1 day PAIN SCORE: 0/10 LOCATION: Bilateral flank MEASUREMENTS: RIGHT KIDNEY: 10.6 x 5.9 x 7.5 cm LEFT KIDNEY: 11.4 x 6.5 x 6.7 cm FINDINGS: RIGHT KIDNEY: Renal cortex is normal in thickness and echotexture. No hydronephrosis, stone, or mass. LEFT KIDNEY: Renal cortex is normal in thickness and echotexture. No hydronephrosis, stone, or mass. BLADDER: Within normal limits given the degree of distension. CONCLUSION: Stable exam; no evidence of hydronephrosis. Raf Mosqueda MD on February 26, 2018 at 13:57 Board Certified Radiologist. This report was verified electronically.
[2018-02-26] MEDS ORDERED: VANCOMYCIN INJ 1,500 MG in SODIUM CHLORID 0.9% 500 ML INJ 500 ML IV SCH (15:45)
[2018-02-26] MEDS ORDERED: Vancomycin Consult Pharmacy 1 EA OTHER SCH (15:45)
[2018-02-26 15:57] LABS: PHOSPHORUS 3.7 MG/DL (2.5-4.9)
--- NOTE | 2018-02-26 16:21 | PD.WCN.NOT ---
Wound Consult Description: Received wound management consult from Doctor Katy for LE Communicated with: DAYO Guido and RAFAT Ramirez H pod Recommendation: Please apply Shaving cream to BLE and cover with warm moist towel. Leave in place for 10 minutes before washing off with warm water and pat dry. Repeat daily Apply ultra sorb pads under patients BLE for drainage management and change as needed Apply eucerin lotion to dry rough skin and leave BLE open to air. Please elevate BLE on pillows. Please obtain bariatric bed for patient. Additional Information: Patient seen on H pod around 1600 for LE wound management. Patient is a morbidly obese man laying in regular hospital bed.Patient presents lethargic, but rouses to light being turned on in room. Removed dressings in place to BLE to reveal Elephantiasis nostras with maceration and partial thickness skin loss that is scattered. BLE also noted with hard non pitting edema that is weeping through scattered areas of partial thickness skin loss. BLE presents with foul odor. Shaving cream applied to BLE and then covered with warm moist towel and left in place for 10 minutes. Large liquid stool is noted at this time. RAFAT Ramirez and LNYDON in room for linen change and bathing of patient. All linens replaced with new ultra sorb pads in a staggered fashion placed under patient for incontinence management. All shaving cream was removed with clean cloths and warm water. BLE was patted dry were left open to air. Ultrasorb pads were placed under patient's BLE and folded over BLE for moisture management. Tara Flores [facility] Feb 26, 2018 16:21
[2018-02-26 20:00] VITALS: BP 141/87; PULSE 72; RESP 20; TEMP 97.8; O2SAT 94
[2018-02-26] MEDS ORDERED: VANCOMYCIN INJ 2,500 MG in SODIUM CHLORID 0.9% 500 ML INJ 500 ML IV ONE (21:00)
[2018-02-26] MEDS: SODIUM BICARBONATE 8.4% INJ 50 MEQ in SODIUM CHLOR 0.45% 1000 ML INJ 1,000 ML IV SCH (21:07)
[2018-02-26] MEDS: cefTRIAXone INJ 1,000 MG in SODIUM CHLORIDE 0.9% INJ 100 ML IV SCH (21:07)
[2018-02-26] MEDS: RIFAXIMIN 200 MG TAB PO SCH (21:39)
[2018-02-27] VITALS (34 sets, daily range): BP systolic 129–168; BP diastolic 63–75; PULSE 64–90; RESP 16–24; TEMP 97.8–98.3; O2SAT 95–100
[2018-02-27] MEDS ORDERED: CHLORHEXIDINE GLUCONATE 2 % 1 PACK (2 CLOTHS)(extra cloths) TOPICAL PRN (00:45)
[2018-02-27] MEDS: CHLORHEXIDINE GLUCONATE 2 % 1 PACK (2 CLOTHS)(taper/protocol) TOPICAL SCH (04:00)
[2018-02-27 04:33] LABS: AUTOMATED NEUTROPHIL # 5.4 TH/MM3 (1.8-7.7); BASOPHIL % 0.7 % (0.0-2.0); EOSINOPHIL # 0.1 TH/MM3 (0-0.4); EOSINOPHIL % 1.2 % (0.0-4.0); LYMPH % 12.9 % (9.0-44.0); MEAN CELL VOLUME 105.9 FL (80.0-100.0); MEAN CORPUSCULAR HEMOGLOBIN 32.4 PG (27.0-34.0); MEAN CORPUSCULAR HGB CONC 30.6 % (32.0-36.0); MEAN PLATELET VOLUME 10.1 FL (7.0-11.0); MONO % 13.9 % (0.0-8.0); NEUT % 71.3 % (16.0-70.0); PLATELET COUNT 172 TH/MM3 (150-450); RED CELL DISTRIBUTION WIDTH 15.4 % (11.6-17.2); WHITE BLOOD COUNT 7.5 TH/MM3 (4.0-11.0)
[2018-02-27 05:03] LABS: BICARBONATE 20.7 MEQ/L (21.0-32.0); CALCIUM 7.6 MG/DL (8.5-10.1); CREATININE 1.72 MG/DL (0.60-1.30)
[2018-02-27 05:32] LABS: FOLATE 7.9 NG/ML (3.1-17.5)
[2018-02-27] MEDS ORDERED: PHARMACY ORDERED LAB ONE (05:45)
[2018-02-27] MEDS: RIFAXIMIN 200 MG TAB PO SCH ×2 (06:00→20:05)
[2018-02-27] MEDS: SODIUM BICARBONATE 8.4% INJ 50 MEQ in SODIUM CHLOR 0.45% 1000 ML INJ 1,000 ML IV SCH (07:47)
[2018-02-27] MEDS: VANCOMYCIN INJ 2,000 MG in SODIUM CHLORID 0.9% 500 ML INJ 500 ML IV SCH ×2 (07:47→18:33)
--- NOTE | 2018-02-27 08:05 | HHI.PR ---
Subjective Remarks f/u; respiratory failure lethargic but arousable. on BiPaP. ABG noted and d/w and RN at the bedside. afebrile. Objective Vitals Vital Signs Date Time Temp Pulse Resp B/P (MAP) Pulse Ox O2 Delivery O2 Flow Rate FiO2 02/27/18 06:00 70 02/27/18 04:18 100 50 02/27/18 04:00 97.8 76 23 149/73 (98) 100 02/27/18 04:00 76 02/27/18 02:00 72 02/27/18 00:38 98.2 77 24 153/72 (99) 100 02/27/18 00:38 77 02/27/18 00:32 98 50 02/26/18 22:47 Nasal Cannula 2.00 02/26/18 22:33 Nasal Cannula 3.00 02/26/18 20:00 97.8 72 20 141/87 (105) 94 02/26/18 12:57 97.5 75 22 142/75 (97) 96 Result Diagram: 02/27/18 0411 02/27/18 0411 Imaging Last Impressions Renal Ultrasound 02/26/18 0000 Signed Impressions: Service Date/Time: Monday, February 26, 2018 14:30 - CONCLUSION: Stable exam; no evidence of hydronephrosis. Raf Mosqueda MD Chest X-Ray 02/25/18 1508 Signed Impressions: Service Date/Time: January 15:15 - CONCLUSION: Pulmonary venous congestion versus early pulmonary edema. Stable diffuse cardiomegaly. No significant change compared to the prior study. Florentino Cr MD Objective Remarks GENERAL: obese, lethargic. CARDIOVASCULAR: Regular rate and irregular rhythm without murmurs, gallops, or rubs. RESPIRATORY: Clear to auscultation. Breath sounds equal bilaterally. No wheezes , rales, or rhonchi. GASTROINTESTINAL: Abdomen soft, non-tender, nondistended. Normal, active bowel sounds MUSCULOSKELETAL: Extremities with bilateral pedal edema. NEURO: lethargic but arousable. Medications and IVs Inpatient Medications Acetaminophen (Tylenol) 650 mg Q6H PRN PO FEVER/PAIN SCALE 1 TO 2; Start at 19:45 Acetaminophen/ Hydrocodone Bitart ([place] 5-325 Mg) 1 tab Q4H PRN PO PAIN SCALE 3 TO 5; Start 02/25/18 at 19:45; Status Future Hold Albuterol Sulfate (Albuterol Concentrated Neb) 10 mg ONCE ONCE INH Last administered on 02/25/18at 17:30; Start 02/25/18 at 17:30; Stop 02/25/18 at 17:31 ; Status DC Albuterol/ Ipratropium (Duoneb Neb) 1 ampule Q4HR NEB PRN NEB SOB/WHEEZING; Start 02/25/18 at 19:45 Amlodipine Besylate (Norvasc) 10 mg DAILY PO Last administered on 02/26/18at 11: 32; Start 02/26/18 at 09:00 Bisacodyl (Dulcolax Supp) 10 mg DAILY PRN RECTAL SEVERE CONSITIPATION; Start at 18:15 Budesonide/ Formoterol Fumarate (Symbicort 160-4.5 Mcg Inh) 1 puff Q12HR INH ; Start 02/25/18 at 21:00 Calcium Gluconate (Calcium Gluconate Inj) 1 gm ONCE ONCE IV PUSH Last administered on 02/25/18at 17:30; Start 02/25/18 at 17:30; Stop 02/25/18 at 17:31 ; Status DC Ceftriaxone Sodium 1000 mg/ Sodium Chloride 100 ml @ 200 mls/hr Q24H IV Last administered on 02/26/18at 21:07; Start 02/25/18 at 20:00 Chlorhexidine Gluconate (Chlorhexidine 2% Cloth) 3 pack UNSCH PRN TOPICAL HYGIENIC CARE; Start 02/27/18 at 00:45; Stop 03/04/18 at 00:38 Dextrose (D50w (Vial) Inj) 50 ml ONCE ONCE IV PUSH Last administered on at 17:30; Start 02/25/18 at 17:30; Stop 02/25/18 at 17:31; Status DC Heparin Sodium (Porcine) (Heparin Inj) 5,000 units Q12H SQ Last administered on 02/26/18at 21:08; Start 02/26/18 at 09:00 Insulin Human Regular (NovoLIN R INJ) 10 units ONCE ONCE IV PUSH Last administered on 02/25/18at 17:30; Start 02/25/18 at 17:30; Stop 02/25/18 at 17:31 ; Status DC Lactulose (Lactulose Liq) 30 ml DAILY PRN PO SEVERE CONSITIPATION; Start at 18:15 Magnesium Hydroxide (Milk Of Magnesia Liq) 30 ml Q12H PRN PO Mild constipation ; Start 02/25/18 at 18:15 Metoprolol Tartrate (Lopressor) 25 mg Q12HR PO Last administered on 02/26/18at 21:07; Start 02/25/18 at 21:00 Miscellaneous Information Patient in critical care unit? Ass... Q361D .XX Last administered on 02/27/18at 00:45; Start 02/27/18 at 00:45 Morphine Sulfate (Morphine Inj) 2 mg Q3H PRN IV PUSH Pain 6-10; Start 02/25/18 at 19:45 Naloxone HCl (Narcan Inj) 0.4 mg UNSCH PRN IV PUSH SEE LABEL COMMENTS; Start at 18:15 Ondansetron HCl (Zofran Inj) 4 mg Q6H PRN IVP NAUSEA OR VOMITING; Start at 19:45 Pantoprazole Sodium (Protonix) 40 mg DAILY PO Last administered on 02/26/18at 11 :32; Start 02/26/18 at 09:00 Pharmacy Profile Note 0 ml @ 0 mls/hr UNSCH OTHER ; Start 02/26/18 at 15:45 Rifaximin (Xifaxan) 400 mg Q8HR PO Last administered on 02/26/18at 21:39; Start 02/26/18 at 22:00 Senna/Docusate Sodium (Carmelita-Colace) 1 tab BID PO Last administered on at 21:07; Start 02/25/18 at 21:00 Sennosides (Senokot) 17.2 mg Q12H PRN PO Moderate constipation; Start 02/25/18 at 18:15 Sodium Bicarbonate 50 meq/Sodium Chloride 1,050 ml @ 100 mls/hr [id number] IV Last administered on 02/27/18at 07:47; Start 02/26/18 at 20:00 Sodium Polystyrene Sulfonate (Kayexalate Liq) 60 gm ONCE ONCE PO Last administered on 02/26/18at 17:34; Start 02/26/18 at 17:30; Stop 02/26/18 at 17:31 ; Status DC Sodium Bicarbonate (Sodium Bicarbonate 8.4% Inj) 50 meq ONCE ONCE IV PUSH Last administered on 02/26/18at 14:15; Start 02/26/18 at 10:45; Stop 02/26/18 at 10:56; Status DC Sodium Chloride (NS Flush) 2 ml BID IV FLUSH Last administered on 02/26/18at 21: 07; Start 02/25/18 at 21:00 Vancomycin HCl 1500 mg/Sodium Chloride 515 ml @ 257.5 mls/ hr Q24H IV ; Start 02/26/18 at 15:45; Stop 02/26/18 at 20:52; Status DC Vancomycin HCl 2000 mg/Sodium Chloride 520 ml @ 250 mls/hr Q12H IV Last administered on 02/27/18at 07:47; Start 02/27/18 at 06:00 Vancomycin HCl 2500 mg/Sodium Chloride 525 ml @ 250 mls/hr NOW ONCE IV Last administered on 02/26/18at 21:39; Start 02/26/18 at 21:00; Stop 02/26/18 at 23:05 ; Status DC A/P Problem List: (1) Hyperkalemia ICD Code: E87.5 - Hyperkalemia Status: Acute (2) CHRISTAL (acute kidney injury) ICD Code: N17.9 - Acute kidney failure, unspecified (3) UTI (urinary tract infection) ICD Code: N39.0 - Urinary tract infection, site not specified Status: Acute (4) Generalized weakness ICD Code: R53.1 - Weakness (5) CHF (congestive heart failure) ICD Code: I50.9 - Heart failure, unspecified (6) Wound, open, leg ICD Code: S81.809A - Unspecified open wound, unspecified lower leg, initial encounter Assessment and Plan A/P Encephalopathy/Lethargy due to CO2 retention -patient is afebrile, white count WNL -hold all sedating medications - continue on BiPaP and will monitor acute on chronic hypercapnic respiratory failure due to acute on chronic diastolic CHF and COPD - continue on BiPaP -repeat ABG this morning - continue with diuretics and neb treatment Hyperkalemia: -trending down -avoid potassium containing foods -continuous cardiac monitoring -monitor K closely -nephrology following. CHRISTAL: -Creatinine 1.93, previously 1.44 on 09/30/17. -creatinine trending down, now 1.77 -Nephrology following, appreciate assistance. -Renal US unremarkable -IVF for hydration-caution with CHF/fluid overload -avoid nephrotoxic agents -Monitor I/O -continue to monitor renal indices UTI: -U/a w/ UTI -follow up cultures show immature growth, re incubate -continue IV Rocephin LE Wound: Acute on Chronic. +foul smelling discharge. -Obtain Wound Cultures. -Consulted Wound Management for further evaluation/recommendations. -started on IV Vancomycin, renally dosed, pharmacy to dose - Generalized Weakness: Likely secondary to all of the above -Consulted PT for eval/tx. DVT Prophylaxis: Heparin sq low threshold for potline monitor evaluation. d/w and RN at the bedside. Problem Qualifiers (1) UTI (urinary tract infection): Qualified Codes: N39.0 - Urinary tract infection, site not specified Ricardo Plunkett MD Feb 27, 2018 08:05
[2018-02-27] MEDS: DOCUSATE SODIUM 50 MG/SENNA 8.6 MG TAB PO SCH ×2 (09:00→20:05)
[2018-02-27] MEDS: METOPROLOL TARTRATE 25 MG TAB PO SCH ×2 (09:32→20:05)
[2018-02-27] MEDS: PANTOPRAZOLE SOD 40 MG DELAYED RELEASE TAB PO SCH (09:32)
[2018-02-27] MEDS: HEPARIN SODIUM - SQ 10,000 UNITS/ML VIAL SQ SCH ×2 (09:32→20:05)
[2018-02-27] MEDS: FUROSEMIDE 40 MG/4 ML VIAL IV PUSH SCH (09:33)
--- NOTE | 2018-02-27 13:53 | HHI.NPPN ---
Subjective Complaints: Shortness of Breath General Problems: Edema, Hypertension Renal Failure: Chronic, Acute History of Present Illness This is a 67-year-old male with a past medical history of hypertension, hyperlipidemia, chronic kidney disease, history of acute kidney injury, congestive heart failure, chronic obstructive pulmonary disease, history of lymphedema of the leg, morbid obesity, came to the hospital with generalized weakness. Nephrology was called to see the patient because of very high BUN and creatinine and high potassium. The patient has a history of chronic kidney disease and he has recurrent acute kidney injury. The patient now came with a creatinine of 1.9 and a potassium of 6.8. The patient previously has creatinine in the range of 1.4-1.5 most of the time, and he had acute kidney injury in April of last year where the creatinine went up to 3.8. 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 The patient is not a very good historian. Most of the history was taken from patient's chart and some from the patient himself. According to him, he was feeling weak and tired, and he has worsening shortness of breath and he came to the hospital. He denies taking any nonsteroid anti- inflammatory drugs. He denies taking any diuretics. He has this swelling in the legs and he has wound in both legs, for which, according to him, he is doing the dressing by himself. There is no documentation of any antibiotics for him. Additional Remarks Patient now transferred to [facility], on BIPAP and in moderate resp. distress. Review of Systems General Constitutional: Fatigue Respiratory Lungs: SOB Cardiovascular Cardiac: Chest Pain Gastrointestinal Gastrointestinal: Abdominal Pain, Nausea & Vomiting Objective Data Data 02/27/18 02/28/18 19:00 07:00 # Bowel Movements 3 Vital Signs Date Time Temp Pulse Resp B/P (MAP) Pulse Ox O2 Delivery O2 Flow Rate FiO2 02/27/18 08:23 96 25 02/27/18 08:00 70 02/27/18 08:00 98.0 74 23 149/73 (98) 100 02/27/18 07:30 68 17 100 02/27/18 07:15 78 21 100 02/27/18 07:00 68 18 132/63 (86) 100 02/27/18 06:45 69 19 100 02/27/18 06:30 67 18 100 02/27/18 06:15 71 20 100 02/27/18 06:01 68 20 139/67 (91) 100 02/27/18 06:00 70 17 100 02/27/18 06:00 70 02/27/18 05:45 65 18 100 02/27/18 05:30 64 19 100 02/27/18 05:15 68 20 100 02/27/18 05:01 69 16 159/75 (103) 100 02/27/18 05:00 65 19 100 02/27/18 04:45 66 20 100 02/27/18 04:30 66 19 100 02/27/18 04:18 100 50 02/27/18 04:15 73 17 100 02/27/18 04:01 75 20 149/73 (98) 100 02/27/18 04:00 97.8 76 23 149/73 (98) 100 02/27/18 04:00 76 23 100 02/27/18 04:00 76 02/27/18 03:45 72 20 100 02/27/18 02:00 72 02/27/18 00:38 98.2 77 24 153/72 (99) 100 02/27/18 00:38 77 02/27/18 00:32 98 50 02/26/18 22:47 Nasal Cannula 2.00 02/26/18 22:33 Nasal Cannula 3.00 02/26/18 20:00 97.8 72 20 141/87 (105) 94 -: 02/27/18 0411 02/27/18 0411 Physical Exam General Appearance: Obese Appearance Remarks In resp. distress. Pulmonary Resp Exam: Breath Sounds Equal, No Distress, Decreased Bases Cardiology CV Exam: Regular Gastrointestinal/Abdomen GI Exam: Soft, Non-Tender Genitourinary Exam: Flank Non-Tender Integumentary Skin Exam: Clear, Warm Extremeties Extremities Exam: Moderate Edema, Pitting Edema, Dependent Edema Neurologic Neuro Exam: Alert, Awake Psychiatric Psych Exam: Appropriate Responses Assessment/Plan Discussed Condition With: Patient Problem List: (1) CHRISTAL (acute kidney injury) ICD Codes: N17.9 - Acute kidney failure, unspecified Plan: Acute Kidney injury possible related to prerenal CKD possibly realted to HTN or renovascular disease. Creatinine improving at 1.7 now. Hyperkalemia persistent Plan Continue IVF and monitor carefully for fluid overload. Continue ceftriaxone C+S is pending Hyperkalemia now improving 5.7. Follow the urine output and BMP with a potassium level. Renal U/S noted. Avoid Nephrotoxins. check K in the urine. (2) Hyperkalemia ICD Codes: E87.5 - Hyperkalemia Status: Acute Plan: Sodium bicarbonate and Kayexalate given Recheck at 1500 (3) UTI (urinary tract infection) ICD Codes: N39.0 - Urinary tract infection, site not specified Status: Acute Plan: Continue ceftriaxone culture pending. Problem Qualifiers (1) UTI (urinary tract infection): Qualified Codes: N39.0 - Urinary tract infection, site not specified Mike Quesada MD Feb 27, 2018 13:53
--- NOTE | 2018-02-27 18:49 | MB ---
cc: Kierra Lozada MD DATE: 02/27/2018 REASON FOR CONSULTATION: Respiratory failure and COPD. HISTORY OF PRESENT ILLNESS: Mr. Roth is a 67-year-old male with a known history of COPD. He is morbidly obese with a history of hypertension, congestive heart failure and gout and now with renal insufficiency, followed by Dr. Quesada. The patient as well has history of prostate cancer. He is short of breath with mild exertion. Denies history of fever, chills, or hemoptysis. There is no history of TB or previous industrial exposure. PAST MEDICAL HISTORY: COPD, hypertension, prostate cancer, congestive heart failure, gout; ejection fraction; however, on 09/29/2017 was at 55%. He is morbidly obese. PAST SURGICAL HISTORY: Only surgery where he was on his right hand in the past. ALLERGIES: NONE KNOWN TO MEDICATION. FAMILY HISTORY: Noncontributory. SOCIAL HISTORY: He does not use drugs, does not drink any alcohol. He is a smoker, a pack a day for over 30 years. REVIEW OF SYSTEMS: A 12-point review of systems as per HPI and past history, otherwise negative. PHYSICAL EXAMINATION: GENERAL: The patient is alert. VITAL SIGNS: Temperature 98, pulse 80, respirations 18, blood pressure 130/70, oxygen saturation 100% on 2 liters oxygen. HEENT: Unremarkable. Eyes without icterus. NECK: Without adenopathy, thyroid enlargement. CHEST: Few rhonchi at the bases. CARDIAC: PMI distant. S1, S2 audible. Positive S4. A I/ ejection systolic murmur in left sternal border. ABDOMEN: Obese, lax. Bowel sounds audible. EXTREMITIES: 2+ edema. LABORATORY DATA: Arterial blood gas today: pH 7.21, pCO2 of 53, pO2 of 80. Sodium 146, potassium 5.7, BUN 52, creatinine 1.7. White count 7.5, hemoglobin 11, hematocrit 36. IMPRESSION: 1. Hypoxic and hypercarbic respiratory failure. 2. Chronic obstructive pulmonary disease. 3. Morbid obesity, obstructive sleep apnea and/or obesity hypoventilation suspect. 4. Hypertension. 5. Renal insufficiency. PLAN: The patient should be maintained on oxygen therapy, as well as nebulized bronchodilators. He would benefit from BiPAP therapy while sleeping. Post-discharge further evaluation of underlying obstructive sleep apnea may be undertaken to assess if indeed this is obstructive in nature or obesity hypoventilation and treated accordingly. I do thank you for asking me to partake in Mr. Roth' care. Kierra Lozada MD WWW/JIM , 06:32 PM , 06:48 PM
[2018-02-27] MEDS: SODIUM CHLORIDE 0.9% FLUSH 10 ML FLUSH IV FLUSH SCH (20:06)
[2018-02-27] MEDS: cefTRIAXone INJ 1,000 MG in SODIUM CHLORIDE 0.9% INJ 100 ML IV SCH (20:06)
[2018-02-27] MEDS: BUDESONIDE-FORMOTEROL 160/4.5 MCG INHALER INH SCH (20:07)
[2018-02-28] VITALS (22 sets, daily range): BP systolic 140–181; BP diastolic 64–88; PULSE 66–108; RESP 16–29; TEMP 97.6–98.5; O2SAT 92–97
[2018-02-28] MEDS: CHLORHEXIDINE GLUCONATE 2 % 1 PACK (2 CLOTHS)(taper/protocol) TOPICAL SCH (04:00)
[2018-02-28] MEDS: RIFAXIMIN 200 MG TAB PO SCH ×3 (05:35→22:29)
[2018-02-28] MEDS: VANCOMYCIN INJ 2,000 MG in SODIUM CHLORID 0.9% 500 ML INJ 500 ML IV SCH ×2 (05:35→18:00)
[2018-02-28] MEDS: SODIUM CHLORIDE 0.9% FLUSH 10 ML FLUSH IV FLUSH PRN (05:54)
[2018-02-28] MEDS: MORPHINE SULFATE 2 MG/ML SYRINGE IV PUSH PRN (05:54)
--- NOTE | 2018-02-28 08:15 | HHI.PR ---
Subjective Remarks in no acute distress. more alert today. wants to get out of the bed. no fever. d/w the RN. Objective Vitals Vital Signs Date Time Temp Pulse Resp B/P (MAP) Pulse Ox O2 Delivery O2 Flow Rate FiO2 02/28/18 06:00 81 02/28/18 04:00 98.2 78 22 181/80 (113) 97 02/28/18 04:00 77 02/28/18 02:30 95 Nasal Cannula 2.00 02/28/18 02:00 73 02/28/18 00:00 80 02/28/18 00:00 98.0 75 29 155/73 (100) 96 02/27/18 23:53 96 25 02/27/18 22:00 87 02/27/18 20:01 95 Nasal Cannula 2.00 02/27/18 20:00 98.3 90 23 168/74 (105) 95 02/27/18 20:00 84 02/27/18 19:00 96 Nasal Cannula 02/27/18 18:00 70 02/27/18 16:00 98.3 76 23 146/65 (92) 100 02/27/18 16:00 70 02/27/18 14:00 70 02/27/18 12:00 70 02/27/18 12:00 98.0 74 23 129/70 (89) 100 02/27/18 10:00 70 02/27/18 08:23 96 25 I/O 02/27/18 02/27/18 02/27/18 02/28/18 02/28/18 02/28/18 07:00 15:00 23:00 07:00 15:00 23:00 Intake Total 850 ml 2000 ml Output Total 1450 ml 1200 ml Balance -600 ml 800 ml Intake Oral 850 ml 2000 ml Output Urine Total 1450 ml 1100 ml Stool Total 100 ml # Bowel Movements 3 3 2 Result Diagram: 02/27/18 0411 02/27/18 0411 Imaging Last Impressions Renal Ultrasound 02/26/18 0000 Signed Impressions: Service Date/Time: Monday, February 26, 2018 14:30 - CONCLUSION: Stable exam; no evidence of hydronephrosis. Raf Mosqueda MD Chest X-Ray 02/25/18 1508 Signed Impressions: Service Date/Time: January 15:15 - CONCLUSION: Pulmonary venous congestion versus early pulmonary edema. Stable diffuse cardiomegaly. No significant change compared to the prior study. Florentino Cr MD Objective Remarks GENERAL: obese, lethargic. CARDIOVASCULAR: Regular rate and irregular rhythm without murmurs, gallops, or rubs. RESPIRATORY: Clear to auscultation. Breath sounds equal bilaterally. No wheezes , rales, or rhonchi. GASTROINTESTINAL: Abdomen soft, non-tender, nondistended. Normal, active bowel sounds MUSCULOSKELETAL: Extremities with bilateral pedal edema. NEURO: lethargic but arousable. Medications and IVs Inpatient Medications Acetaminophen (Tylenol) 650 mg Q6H PRN PO FEVER/PAIN SCALE 1 TO 2; Start at 19:45 Acetaminophen/ Hydrocodone Bitart ([place] 5-325 Mg) 1 tab Q4H PRN PO PAIN SCALE 3 TO 5; Start 02/25/18 at 19:45; Status Future Hold Albuterol Sulfate (Albuterol Concentrated Neb) 10 mg ONCE ONCE INH Last administered on 02/25/18at 17:30; Start 02/25/18 at 17:30; Stop 02/25/18 at 17:31 ; Status DC Albuterol/ Ipratropium (Duoneb Neb) 1 ampule Q4HR NEB PRN NEB SOB/WHEEZING; Start 02/25/18 at 19:45 Amlodipine Besylate (Norvasc) 10 mg DAILY PO Last administered on 02/27/18at 09: 00; Start 02/26/18 at 09:00 Bisacodyl (Dulcolax Supp) 10 mg DAILY PRN RECTAL SEVERE CONSITIPATION; Start at 18:15 Budesonide/ Formoterol Fumarate (Symbicort 160-4.5 Mcg Inh) 1 puff Q12HR INH Last administered on 02/27/18at 20:07; Start 02/25/18 at 21:00 Calcium Gluconate (Calcium Gluconate Inj) 1 gm ONCE ONCE IV PUSH Last administered on 02/25/18at 17:30; Start 02/25/18 at 17:30; Stop 02/25/18 at 17:31 ; Status DC Ceftriaxone Sodium 1000 mg/ Sodium Chloride 100 ml @ 200 mls/hr Q24H IV Last administered on 02/27/18at 20:06; Start 02/25/18 at 20:00 Chlorhexidine Gluconate (Chlorhexidine 2% Cloth) 3 pack UNSCH PRN TOPICAL HYGIENIC CARE; Start 02/27/18 at 00:45; Stop 03/04/18 at 00:38 Dextrose (D50w (Vial) Inj) 50 ml ONCE ONCE IV PUSH Last administered on at 17:30; Start 02/25/18 at 17:30; Stop 02/25/18 at 17:31; Status DC Furosemide (Lasix Inj) 40 mg DAILY IV PUSH Last administered on 02/27/18at 09:33 ; Start 02/27/18 at 09:00 Heparin Sodium (Porcine) (Heparin Inj) 5,000 units Q12H SQ Last administered on 02/27/18at 20:05; Start 02/26/18 at 09:00 Insulin Human Regular (NovoLIN R INJ) 10 units ONCE ONCE IV PUSH Last administered on 02/25/18at 17:30; Start 02/25/18 at 17:30; Stop 02/25/18 at 17:31 ; Status DC Lactulose (Lactulose Liq) 30 ml DAILY PRN PO SEVERE CONSITIPATION; Start at 18:15 Magnesium Hydroxide (Milk Of Magnesia Liq) 30 ml Q12H PRN PO Mild constipation ; Start 02/25/18 at 18:15 Metoprolol Tartrate (Lopressor) 25 mg Q12HR PO Last administered on 02/27/18at 20:05; Start 02/25/18 at 21:00 Miscellaneous Information Patient in critical care unit? Ass... Q361D .XX Last administered on 02/27/18at 00:45; Start 02/27/18 at 00:45 Morphine Sulfate (Morphine Inj) 2 mg Q3H PRN IV PUSH Pain 6-10 Last administered on 02/28/18at 05:54; Start 02/25/18 at 19:45 Naloxone HCl (Narcan Inj) 0.4 mg UNSCH PRN IV PUSH SEE LABEL COMMENTS; Start at 18:15 Ondansetron HCl (Zofran Inj) 4 mg Q6H PRN IVP NAUSEA OR VOMITING; Start at 19:45 Pantoprazole Sodium (Protonix) 40 mg DAILY PO Last administered on 02/27/18at 09 :32; Start 02/26/18 at 09:00 Pharmacy Profile Note 0 ml @ 0 mls/hr UNSCH OTHER ; Start 02/26/18 at 15:45 Rifaximin (Xifaxan) 400 mg Q8HR PO Last administered on 02/28/18at 05:35; Start 02/26/18 at 22:00 Senna/Docusate Sodium (Carmelita-Colace) 1 tab BID PO Last administered on at 20:05; Start 02/25/18 at 21:00 Sennosides (Senokot) 17.2 mg Q12H PRN PO Moderate constipation; Start 02/25/18 at 18:15 Sodium Bicarbonate 50 meq/Sodium Chloride 1,050 ml @ 100 mls/hr [id number] IV Last administered on 02/27/18at 07:47; Start 02/26/18 at 20:00; Status Future Hold Sodium Polystyrene Sulfonate (Kayexalate Liq) 60 gm ONCE ONCE PO Last administered on 02/26/18at 17:34; Start 02/26/18 at 17:30; Stop 02/26/18 at 17:31 ; Status DC Sodium Bicarbonate (Sodium Bicarbonate 8.4% Inj) 50 meq ONCE ONCE IV PUSH Last administered on 02/26/18at 14:15; Start 02/26/18 at 10:45; Stop 02/26/18 at 10:56; Status DC Sodium Chloride (NS Flush) 2 ml BID IV FLUSH Last administered on 02/27/18at 20: 06; Start 02/25/18 at 21:00 Vancomycin HCl 1500 mg/Sodium Chloride 515 ml @ 257.5 mls/ hr Q24H IV ; Start 02/26/18 at 15:45; Stop 02/26/18 at 20:52; Status DC Vancomycin HCl 2000 mg/Sodium Chloride 520 ml @ 250 mls/hr Q12H IV Last administered on 02/28/18at 05:35; Start 02/27/18 at 06:00 Vancomycin HCl 2500 mg/Sodium Chloride 525 ml @ 250 mls/hr NOW ONCE IV Last administered on 02/26/18at 21:39; Start 02/26/18 at 21:00; Stop 02/26/18 at 23:05 ; Status DC A/P Problem List: (1) Hyperkalemia ICD Code: E87.5 - Hyperkalemia Status: Acute (2) CHRISTAL (acute kidney injury) ICD Code: N17.9 - Acute kidney failure, unspecified (3) UTI (urinary tract infection) ICD Code: N39.0 - Urinary tract infection, site not specified Status: Acute (4) Generalized weakness ICD Code: R53.1 - Weakness (5) CHF (congestive heart failure) ICD Code: I50.9 - Heart failure, unspecified (6) Wound, open, leg ICD Code: S81.809A - Unspecified open wound, unspecified lower leg, initial encounter Assessment and Plan A/P Encephalopathy/Lethargy due to CO2 retention- improving. -patient is afebrile, white count WNL -hold all sedating medications - continue on BiPaP- as needed and will monitor acute on chronic hypercapnic respiratory failure due to acute on chronic diastolic CHF and COPD - continue on BiPaP- as needed. - continue with diuretics and neb treatment Hyperkalemia: -trending down -avoid potassium containing foods -continuous cardiac monitoring -monitor K closely; BMP today pending. -nephrology following. CHRISTAL: -Nephrology following, appreciate assistance. -Renal US unremarkable -hold IVF. -avoid nephrotoxic agents -Monitor I/O -continue to monitor renal indices UTI: -U/a w/ UTI -follow up cultures show immature growth, re incubate -continue IV Rocephin LE Wound: Acute on Chronic. +foul smelling discharge. -Obtain Wound Cultures. -Consulted Wound Management for further evaluation/recommendations. -started on IV Vancomycin, renally dosed, pharmacy to dose Generalized Weakness: Likely secondary to all of the above -Consulted PT for eval/tx. DVT Prophylaxis: Heparin sq transfer to floor tomorrow within the next 24 hrs if stable. Problem Qualifiers (1) UTI (urinary tract infection): Qualified Codes: N39.0 - Urinary tract infection, site not specified Ricardo Plunkett MD Feb 28, 2018 08:15
[2018-02-28] MEDS: PANTOPRAZOLE SOD 40 MG DELAYED RELEASE TAB PO SCH (09:00)
[2018-02-28] MEDS: BUDESONIDE-FORMOTEROL 160/4.5 MCG INHALER INH SCH ×2 (09:00→22:27)
[2018-02-28] MEDS: HEPARIN SODIUM - SQ 10,000 UNITS/ML VIAL SQ SCH ×2 (09:00→21:00)
[2018-02-28] MEDS: FUROSEMIDE 40 MG/4 ML VIAL IV PUSH SCH (09:00)
[2018-02-28] MEDS: DOCUSATE SODIUM 50 MG/SENNA 8.6 MG TAB PO SCH ×2 (09:00→21:00)
[2018-02-28] MEDS: METOPROLOL TARTRATE 25 MG TAB PO SCH ×2 (09:00→21:00)
[2018-02-28] MEDS: SODIUM CHLORIDE 0.9% FLUSH 10 ML FLUSH IV FLUSH SCH ×2 (12:30→21:00)
[2018-02-28 13:54] LABS: CALCIUM 7.9 MG/DL (8.5-10.1); CREATININE 1.43 MG/DL (0.60-1.30)
[2018-02-28 13:56] LABS: VANCOMYCIN TROUGH 37.9 MCG/ML (5.0-10.0)
--- NOTE | 2018-02-28 16:26 | HHI.PR ---
Subjective Remarks ALERT [employer] Objective Vital Signs Date Time Temp Pulse Resp B/P (MAP) Pulse Ox O2 Delivery O2 Flow Rate FiO2 02/28/18 12:30 97.6 80 20 156/64 (94) 92 02/28/18 12:30 89 02/28/18 10:00 88 02/28/18 08:49 92 02/28/18 08:00 98.3 90 23 140/74 (96) 95 02/28/18 08:00 81 02/28/18 07:00 96 Nasal Cannula 2.00 02/28/18 06:00 81 02/28/18 04:00 98.2 78 22 181/80 (113) 97 02/28/18 04:00 77 02/28/18 02:30 95 Nasal Cannula 2.00 02/28/18 02:00 73 02/28/18 00:00 80 02/28/18 00:00 98.0 75 29 155/73 (100) 96 02/27/18 23:53 96 25 02/27/18 22:00 87 02/27/18 20:01 95 Nasal Cannula 2.00 02/27/18 20:00 98.3 90 23 168/74 (105) 95 02/27/18 20:00 84 02/27/18 19:00 96 Nasal Cannula 02/27/18 18:00 70 I/O 02/27/18 02/27/18 02/27/18 02/28/18 02/28/18 02/28/18 07:00 15:00 23:00 07:00 15:00 23:00 Intake Total 850 ml 2000 ml Output Total 1450 ml 1200 ml Balance -600 ml 800 ml Intake Oral 850 ml 2000 ml Output Urine Total 1450 ml 1100 ml Stool Total 100 ml # Bowel Movements 3 3 2 Result Diagram: 02/27/18 0411 02/28/18 1310 Objective Remarks GENERAL: SKIN: Warm and dry. HEAD: Atraumatic. Normocephalic. EYES: Pupils equal and round. No scleral icterus. No injection or drainage. ENT: No nasal bleeding or discharge. Mucous membranes pink and moist. NECK: Trachea midline. No JVD. CARDIOVASCULAR: Regular rate and rhythm. RESPIRATORY: No accessory muscle use. Clear to auscultation. Breath sounds equal bilaterally. GASTROINTESTINAL: Abdomen soft, non-tender, nondistended. Hepatic and splenic margins not palpable. MUSCULOSKELETAL: Extremities without clubbing, cyanosis, or edema. No obvious deformities. NEUROLOGICAL: Awake and alert. No obvious cranial nerve deficits. Motor grossly within normal limits. Five out of 5 muscle strength in the arms and legs. Normal speech. PSYCHIATRIC: Appropriate mood and affect; insight and judgment normal. Assessment and Plan Assessment and Plan IMPRESSION RESP. 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
--- NOTE | 2018-02-28 18:15 | HHI.NPPN ---
Subjective Complaints: Shortness of Breath General Problems: Edema, Hypertension Renal Failure: Chronic, Acute History of Present Illness This is a 67-year-old male with a past medical history of hypertension, hyperlipidemia, chronic kidney disease, history of acute kidney injury, congestive heart failure, chronic obstructive pulmonary disease, history of lymphedema of the leg, morbid obesity, came to the hospital with generalized weakness. Nephrology was called to see the patient because of very high BUN and creatinine and high potassium. The patient has a history of chronic kidney disease and he has recurrent acute kidney injury. The patient now came with a creatinine of 1.9 and a potassium of 6.8. The patient previously has creatinine in the range of 1.4-1.5 most of the time, and he had acute kidney injury in April of last year where the creatinine went up to 3.8. 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 The patient is not a very good historian. Most of the history was taken from patient's chart and some from the patient himself. According to him, he was feeling weak and tired, and he has worsening shortness of breath and he came to the hospital. He denies taking any nonsteroid anti- inflammatory drugs. He denies taking any diuretics. He has this swelling in the legs and he has wound in both legs, for which, according to him, he is doing the dressing by himself. There is no documentation of any antibiotics for him. Additional Remarks Patient is alert, breathing is much better, no chest pain. Review of Systems General Constitutional: Fatigue Respiratory Lungs: SOB Cardiovascular Cardiac: Chest Pain Gastrointestinal Gastrointestinal: Abdominal Pain, Nausea & Vomiting Objective Data Data Vital Signs Date Time Temp Pulse Resp B/P (MAP) Pulse Ox O2 Delivery O2 Flow Rate FiO2 02/28/18 18:00 81 02/28/18 17:00 86 02/28/18 16:00 97.6 80 20 156/64 (94) 92 02/28/18 16:00 83 02/28/18 15:00 100 02/28/18 14:00 82 02/28/18 12:30 97.6 80 20 156/64 (94) 92 02/28/18 12:30 89 02/28/18 10:00 88 02/28/18 08:49 92 02/28/18 08:00 98.3 90 23 140/74 (96) 95 02/28/18 08:00 81 02/28/18 07:00 96 Nasal Cannula 2.00 02/28/18 06:00 81 02/28/18 04:00 98.2 78 22 181/80 (113) 97 02/28/18 04:00 77 02/28/18 02:30 95 Nasal Cannula 2.00 02/28/18 02:00 73 02/28/18 00:00 80 02/28/18 00:00 98.0 75 29 155/73 (100) 96 02/27/18 23:53 96 25 02/27/18 22:00 87 02/27/18 20:01 95 Nasal Cannula 2.00 02/27/18 20:00 98.3 90 23 168/74 (105) 95 02/27/18 20:00 84 02/27/18 19:00 96 Nasal Cannula -: 02/27/18 0411 02/28/18 1310 Physical Exam General Appearance: Obese Appearance Remarks In resp. distress. Pulmonary Resp Exam: Breath Sounds Equal, No Distress, Decreased Bases Cardiology CV Exam: Regular Gastrointestinal/Abdomen GI Exam: Soft, Non-Tender Genitourinary Exam: Flank Non-Tender Integumentary Skin Exam: Clear, Warm Extremeties Extremities Exam: Moderate Edema, Pitting Edema, Dependent Edema Neurologic Neuro Exam: Alert, Awake Psychiatric Psych Exam: Appropriate Responses Assessment/Plan Discussed Condition With: Patient Problem List: (1) CHRISTAL (acute kidney injury) ICD Codes: N17.9 - Acute kidney failure, unspecified Plan: Acute Kidney injury possible related to prerenal CKD possibly realted to HTN or renovascular disease. Creatinine improving at 1.7 now. Hyperkalemia persistent Plan Continue Vanco. and ceftriaxone C+S is pending Follow the urine output and BMP with a potassium level. Renal U/S noted. Avoid Nephrotoxins. Creatinine is better, and K is normal. Urine K was low. On Lasix. (2) Hyperkalemia ICD Codes: E87.5 - Hyperkalemia Status: Acute Plan: Sodium bicarbonate and Kayexalate given Recheck at 1500 (3) UTI (urinary tract infection) ICD Codes: N39.0 - Urinary tract infection, site not specified Status: Acute Plan: Continue ceftriaxone culture pending. Problem Qualifiers (1) UTI (urinary tract infection): Qualified Codes: N39.0 - Urinary tract infection, site not specified Mike Quesada MD Feb 28, 2018 18:15
[2018-02-28] MEDS: cefTRIAXone INJ 1,000 MG in SODIUM CHLORIDE 0.9% INJ 100 ML IV SCH (22:27)
[2018-03-01] VITALS (20 sets, daily range): BP systolic 98–154; BP diastolic 47–90; PULSE 58–109; RESP 18–24; TEMP 96.5–98.4; O2SAT 88–100
[2018-03-01] MEDS: MORPHINE SULFATE 2 MG/ML SYRINGE IV PUSH PRN (03:09)
[2018-03-01] MEDS: CHLORHEXIDINE GLUCONATE 2 % 1 PACK (2 CLOTHS)(taper/protocol) TOPICAL SCH (03:36)
[2018-03-01] MEDS ORDERED: FUROSEMIDE 40 MG/4 ML VIAL IV PUSH ONE ×2 (03:45→16:00)
[2018-03-01] MEDS ORDERED: HYDROmorphone HCL PF 2 MG/ML VIAL IV PUSH ONE (03:45)
[2018-03-01] MEDS ORDERED: PHARMACY ORDERED LAB ONE ×2 (05:45→17:45)
[2018-03-01] MEDS: RIFAXIMIN 200 MG TAB PO SCH ×3 (06:00→20:41)
[2018-03-01] MEDS: VANCOMYCIN INJ 2,000 MG in SODIUM CHLORID 0.9% 500 ML INJ 500 ML IV SCH (08:09)
[2018-03-01] MEDS: DOCUSATE SODIUM 50 MG/SENNA 8.6 MG TAB PO SCH ×3 (08:15→20:22)
[2018-03-01] MEDS: PANTOPRAZOLE SOD 40 MG DELAYED RELEASE TAB PO SCH (08:15)
[2018-03-01] MEDS: SODIUM CHLORIDE 0.9% FLUSH 10 ML FLUSH IV FLUSH SCH ×2 (08:16→20:27)
[2018-03-01] MEDS: HEPARIN SODIUM - SQ 10,000 UNITS/ML VIAL SQ SCH ×2 (08:16→20:22)
[2018-03-01] MEDS: FUROSEMIDE 40 MG/4 ML VIAL IV PUSH SCH (08:16)
[2018-03-01] MEDS: BUDESONIDE-FORMOTEROL 160/4.5 MCG INHALER INH SCH ×2 (08:19→21:00)
[2018-03-01] MEDS: METOPROLOL TARTRATE 25 MG TAB PO SCH ×3 (09:59→20:39)
[2018-03-01 11:00] LABS: BICARBONATE 22.1 MEQ/L (21.0-32.0); CALCIUM 7.8 MG/DL (8.5-10.1); CREATININE 1.53 MG/DL (0.60-1.30)
--- NOTE | 2018-03-01 11:53 | HHI.PR ---
Subjective Remarks Patient is lethargic this morning. He is falling asleep mid conversation. Apparent sleep apnea. Cannot stay awake to hold a conversation. He has been on BiPAP overnight. Objective Vitals Vital Signs Date Time Temp Pulse Resp B/P (MAP) Pulse Ox O2 Delivery O2 Flow Rate FiO2 03/01/18 09:24 Nasal Cannula 2.00 03/01/18 08:10 Nasal Cannula 4.00 03/01/18 08:00 98.4 88 24 129/80 (96) 94 03/01/18 07:42 97 BiPAP 35 03/01/18 07:40 97 35 03/01/18 04:46 93 35 03/01/18 04:30 83 22 139/82 (101) 88 03/01/18 04:16 70 03/01/18 04:00 76 03/01/18 03:30 16 03/01/18 03:00 74 03/01/18 02:00 58 03/01/18 01:00 58 03/01/18 00:15 98 25 03/01/18 00:00 109 20 154/90 (111) 97 03/01/18 00:00 62 03/01/18 00:00 63 02/28/18 23:00 66 02/28/18 22:00 74 02/28/18 21:52 96 25 02/28/18 21:52 Nasal Cannula 2.00 02/28/18 21:00 78 02/28/18 20:16 108 22 156/88 (110) 92 02/28/18 20:09 68 02/28/18 20:00 98.5 88 16 166/88 (114) 97 02/28/18 20:00 Nasal Cannula 2.00 25 02/28/18 20:00 76 02/28/18 19:00 90 02/28/18 18:00 81 02/28/18 17:00 86 02/28/18 16:00 97.6 80 20 156/64 (94) 92 02/28/18 16:00 83 02/28/18 15:00 100 02/28/18 14:00 82 02/28/18 12:30 97.6 80 20 156/64 (94) 92 02/28/18 12:30 89 I/O 02/28/18 02/28/18 02/28/18 03/01/18 03/01/18/2/18 07:00 15:00 23:00 07:00 15:00 23:00 Intake Total 2000 ml 1250 ml 840 ml Output Total 1200 ml 2300 ml 980 ml Balance 800 ml -1050 ml -140 ml Intake Oral 2000 ml 800 ml 240 ml IV Total 450 ml 600 ml Output Urine Total 1100 ml 2300 ml 980 ml Stool Total 100 ml Result Diagram: 02/27/18 0411 03/01/18 0943 Objective Remarks GENERAL: Morbidly obese male, lethargic. CARDIOVASCULAR: Difficult exam due to morbid obesity. Normal rate and regular rhythm. RESPIRATORY: Difficult exam due to obesity. Anteriorly he sounds clear to auscultation. GASTROINTESTINAL: Abdomen morbidly obese. MUSCULOSKELETAL: Extremities with severe elephantitis. I do not see any open draining wounds. NEURO: Lethargic. Falling asleep mid conversation. Cannot stay awake. A/P Problem List: (1) Hyperkalemia ICD Code: E87.5 - Hyperkalemia Status: Acute (2) CHRISTAL (acute kidney injury) ICD Code: N17.9 - Acute kidney failure, unspecified (3) UTI (urinary tract infection) ICD Code: N39.0 - Urinary tract infection, site not specified Status: Acute (4) Generalized weakness ICD Code: R53.1 - Weakness (5) CHF (congestive heart failure) ICD Code: I50.9 - Heart failure, unspecified (6) Wound, open, leg ICD Code: S81.809A - Unspecified open wound, unspecified lower leg, initial encounter (7) Acute encephalopathy ICD Code: G93.40 - Encephalopathy, unspecified Assessment and Plan Encephalopathy/Lethargy due to CO2 retention-hyperammonemia likely contributing as well. -hold all sedating medications -I suspect severe sleep apnea. Advised nursing to continue BiPAP whenever the patient is sleeping. -Schedule lactulose. acute on chronic hypercapnic respiratory failure due to acute on chronic diastolic CHF and COPD - continue on BiPaP- as needed. - continue with diuretics and neb treatment - Appreciate pulmonology input Hyperkalemia: -trending down -avoid potassium containing foods -continuous cardiac monitoring -monitor K closely; BMP today pending. -nephrology following. CHRISTAL: -Nephrology following, appreciate assistance. -Renal US unremarkable -hold IVF. -avoid nephrotoxic agents -Monitor I/O -continue to monitor renal indices UTI: Urinalysis was abnormal. However urine culture is negative. Discontinue Rocephin. LE Wound: Acute on Chronic. Improving -Continue wound care. -On IV Vancomycin, renally dosed, pharmacy to dose. Will plan to discontinue vancomycin soon as it seems he is returning to his baseline Generalized Weakness: Likely secondary to all of the above -Consulted PT for eval/tx. DVT Prophylaxis: Heparin sq Problem Qualifiers (1) UTI (urinary tract infection): Qualified Codes: N39.0 - Urinary tract infection, site not specified Fawn Abrams MD Mar 01, 2018 11:53
[2018-03-01] MEDS ORDERED: NOREPINEPHRINE-DEXTROSE DRIP 250 ML IV ONE (13:58)
--- NOTE | 2018-03-01 14:16 | RADRPT ---
EXAM DATE/TIME: 03/01/2018 13:21 [facility] COMPARISON: CHEST SINGLE AP, February 25, 2018, 15:15. INDICATIONS : Short of breath MEDICAL HISTORY : Hypertension. Chronic obstructive pulmonary disease. Congestive heart failure. prostate ca SURGICAL HISTORY : None. ENCOUNTER: Subsequent ACUITY: 4 - 6 days PAIN SCORE: Non-responsive. LOCATION: Bilateral chest FINDINGS: Mosaic acquisition performed. There is indistinctness of the central bronchopulmonary markings and m ild engorgement. There is a new consolidative infiltrate in the right infrahilar region is a new fin ding. Both hemidiaphragms are well delineated. Moderate cardiomegaly. CONCLUSION: New small infiltrate right infrahilar region and interval development of engorgement of the central b ronchopulmonary markings. Federico Ocampo MD on March 01, 2018 at 14:13 Board Certified Radiologist. This report was verified electronically.
[2018-03-01] MEDS ORDERED: MIDAZOLAM HCL 5 MG/ML VIAL (1 ML) ONE (15:13)
[2018-03-01] MEDS ORDERED: PROPOFOL 500 MG/50 ML INJ 50 ML ONE (15:14)
[2018-03-01] MEDS ORDERED: TERBUTALINE INJ 1 MG/ML AMP SQ PRN (15:15)
[2018-03-01] MEDS ORDERED: MIDAZOLAM HCL 5 MG/5 ML VIAL IV PUSH ONE (16:00)
[2018-03-01] MEDS ORDERED: NOREPINEPHRINE-DEXTROSE DRIP 250 ML IV PRN (16:00)
[2018-03-01] MEDS ORDERED: ROCURONIUM INJ 100 MG/10 ML VIAL IV ONE (16:00)
--- NOTE | 2018-03-01 16:33 | PD.CONS ---
[facility] Service Critical Care Medicine Consult Requested By [facility] Reason for Consult Hypoxemic, hypercapneic respiratory failure Primary Care Physician Dany Chopra DO History of Present Illness Admission Diagnosis hyperkalemia, acute renal failure, uti Diagnoses: (1) Hyperkalemia Diagnosis: Principal (2) CHRISTAL (acute kidney injury) Diagnosis: Principal (3) UTI (urinary tract infection) Diagnosis: Principal (4) CHF (congestive heart failure) Diagnosis: Principal (5) Generalized weakness Diagnosis: Principal (6) Wound, open, leg Diagnosis: Principal 02/28: History of Present Illness This is a 67-year-old male with a PMH of Morbid Obesity, Prostate CA, HTN, Hyperlipidemia, COPD, Gout, CHF (Echo 09/29/2017 w/ EF 50-55%) who presented to the ER w/ complaints of generalized weakness and bilateral lower extremity pain x1 day. States he ran out of his medications approx 3wks ago, has noticed worsening weakness, unable to pull himself out of bed today. Notes chronic lower extremity wounds for approx 1 year, now w/ worsening drainage. Denies fever or chills. On arrival, BP 148/71, HR 60, O2 sat 98% on 2L NC, Afebrile. WBC normal. K+ 6.8. Creatinine 1.93, previously one-point 03/03 and 09/30/17. Troponin negative. INR 1.1. UA positive UTI. CXR pulmonary venous congestion , early pulmonary edema. S/p Insulin, D50, Ca and Kayexalate in ER. Dr. Quesada consulted for CHRISTAL and Hyperkalemia. S/p Rocephin for UTI 03/01: Continued CO2 retention and respiratory acidosis incompatible with survival despite BiPAP. Brought emergently to CVICU where I met him on his arrival. CXR and exam reveal fluid overload and new RLL infiltrate. Intubated immediately, central line placed and CVP 27 mm Hg. Started on milrinone and lasix gtt infusion. Review of Systems Respiratory: COMPLAINS OF: Wheezing, Shortness of breath Psychiatric: COMPLAINS OF: Confusion, Agitation Past Family Social History Allergies: Coded Allergies: *MDRO Multi-Drug Resistant Organism (Verified Adverse Reaction, Unknown, ) MRSA (wounds) - 03/20/13 MRSA PCR Screen NEGATIVE - 03/19/16, 03/21/2016 CLEARED PER INFECTION CONTROL Past Medical History PFSH Past Family Social History Past Medical History PMH: Morbid Obesity, Prostate CA, HTN, Hyperlipidemia, COPD, Gout, CHF (Echo w/ EF 50-55%) Past Surgical History PAST SURGICAL HISTORY: Right Hand Surgery Allergies: Coded Allergies: *MDRO Multi-Drug Resistant Organism (Verified Adverse Reaction, Unknown, ) MRSA (wounds) - 03/20/13 MRSA PCR Screen NEGATIVE - 03/19/16, 03/21/2016 CLEARED PER INFECTION CONTROL Family History PAST FAMILY HISTORY: Reviewed. No h/o DM or CAD Social History PAST SOCIAL HISTORY: Negative for alcohol or drugs. Positive for tobacco Physical Exam Vital Signs Vital Signs Date Time Temp Pulse Resp B/P (MAP) Pulse Ox O2 Delivery O2 Flow Rate FiO2 03/01/18 15:38 95 50 03/01/18 12:00 66 03/01/18 10:50 100 35 03/01/18 09:24 Nasal Cannula 2.00 03/01/18 08:10 Nasal Cannula 4.00 03/01/18 08:00 98.4 88 24 129/80 (96) 94 03/01/18 08:00 81 03/01/18 07:42 97 BiPAP 35 03/01/18 07:40 97 35 03/01/18 04:46 93 35 03/01/18 04:30 83 22 139/82 (101) 88 03/01/18 04:16 70 03/01/18 04:00 76 03/01/18 03:30 16 03/01/18 03:00 74 03/01/18 02:00 58 03/01/18 01:00 58 03/01/18 00:15 98 25 03/01/18 00:00 109 20 154/90 (111) 97 03/01/18 00:00 62 03/01/18 00:00 63 02/28/18 23:00 66 02/28/18 22:00 74 02/28/18 21:52 96 25 02/28/18 21:52 Nasal Cannula 2.00 02/28/18 21:00 78 02/28/18 20:16 108 22 156/88 (110) 92 02/28/18 20:09 68 02/28/18 20:00 98.5 88 16 166/88 (114) 97 02/28/18 20:00 Nasal Cannula 2.00 25 02/28/18 20:00 76 02/28/18 19:00 90 02/28/18 18:00 81 02/28/18 17:00 86 Physical Exam Head: Edematous. Neck: Supple, airway widely patent. Lungs: Diffuse crackles and coarse sounds, labored. Heart: Tachycardia, distant tones. Tense JVD. Abdomen: Large soft, no guarding or tenderness. Extremities: Chronic brawny edema both lower legs, circumferential. Chronically infected skin cracks, suspect fungal. Neuro: Moves 4 limbs to stimulation. Answers to his name. KALIE. Tracks with eyes. Laboratory Laboratory Tests Test 03/01/18 09:43 03/01/18 12:42 03/01/18 14:55 Blood Urea Nitrogen 42 Creatinine 1.53 Random Glucose 111 Calcium Level 7.8 Sodium Level 143 Potassium Level 5.2 Chloride Level 115 Carbon Dioxide Level 22.1 Anion Gap 6 Estimat Glomerular Filtration Rate 55 Blood Gas Puncture Site RT RADIAL LT RADIAL Blood Gas Patient Temperature 98.6 98.6 Blood Gas HCO3 22 22 Blood Gas Base Excess -6.1 -5.9 Blood Gas Oxygen Saturation 91 93 Arterial Blood pH 7.15 7.15 Arterial Blood Partial Pressure CO2 65 65 Arterial Blood Partial Pressure O2 85 90 Arterial Blood Oxygen Content 14.6 14.3 Arterial Blood Carboxyhemoglobin 0.8 0.8 Arterial Blood Methemoglobin 1.8 1.7 Blood Gas Hemoglobin 11.3 10.9 Oxygen Delivery Device BP BIPAP Blood Gas Ventilator Setting 20/8/35% IPAP20/EPAP8 Blood Gas Inspired Oxygen 35 35 Date/Time Source Procedure Growth Status 02/25/18 16:33 Urine Clean Catch Urine Culture - Final 10-50,000 CFU/ML MIXED GRAM POSITIVE ... Complete Result Diagram: 02/27/18 0411 03/01/18 0943 Assessment and Plan Problem List: (1) Hypercapnic respiratory failure ICD Code: J96.92 - Respiratory failure, unspecified with hypercapnia (2) CHF (congestive heart failure) ICD Code: I50.9 - Heart failure, unspecified Status: Acute (3) Pneumonia ICD Code: J18.9 - Pneumonia, unspecified organism (4) Nehqj-jk-okroysz kidney injury ICD Code: N17.9 - Acute kidney failure, unspecified; N18.9 - Chronic kidney disease, unspecified Status: Acute (5) Hyperkalemia ICD Code: E87.5 - Hyperkalemia Status: Acute (6) Morbid obesity ICD Code: E66.01 - Morbid (severe) obesity due to excess calories Status: Chronic Assessment and Plan Plan: RESP: PRVC vent mode, PEEP 10, aim for pH 7.28 - 7.35 range. Sputum culture for RLL infiltrate. CV: Lasix gtt. Milrinone. NEURO: Propofol sedation. GI: OG to LIS. : Foster to CBD. If urine > 500/hr, decrease lasix gtt to 5 mg/hr. ENDO: SSI for euglycemia prn. HEME: CBC a.m. ID: Sputum culture, continue abx as ordered. PX: Heparin DVT px. Pepcid GI px. Overall impression: Patient is critically ill with respiratory failure requiring mechanical ventilation. Multiple comorbid conditions contribute to this predicament. We'll start with aggressive diuretic therapy and elevated airway pressure. Sort out bronchospasm from cardiac asthma after he loses about 10 liters of excess fluid. Renal function remains tenuous. Critical care 48 mins aside from procedures. Problem Qualifiers (1) Hypercapnic respiratory failure: Qualified Codes: J96.22 - Acute and chronic respiratory failure with hypercapnia (2) CHF (congestive heart failure): Qualified Codes: I50.23 - Acute on chronic systolic (congestive) heart failure (3) Pneumonia: Reinaldo Villavicencio MD Mar 01, 2018 16:33
--- NOTE | 2018-03-01 16:48 | RADRPT ---
EXAM DATE/TIME: 03/01/2018 16:25 [facility] COMPARISON: CHEST SINGLE AP, March 01, 2018, 13:21. INDICATIONS : Central line placement MEDICAL HISTORY : Hypertension. Chronic obstructive pulmonary disease. Congestive heart failure. prostate ca SURGICAL HISTORY : None. ENCOUNTER: Subsequent ACUITY: 4 - 6 days PAIN SCORE: Non-responsive. LOCATION: chest FINDINGS: There is a new left subclavian central line catheter tip is at the junction of the subclavian vein an d the SVC. ET tubes in good position The heart is mildly enlarged. There is diffuse interstitial prominence suggesting congestive failure. CONCLUSION: 1. Left-sided central line in satisfactory position with no evidence of pneumothorax. Ivan Trejo MD on March 01, 2018 at 16:45 Board Certified Radiologist. This report was verified electronically.
[2018-03-01] MEDS: MILRINONE INJ 20 MG in SODIUM CHLORIDE 0.9% INJ 80 ML IV SCH ×2 (17:04→20:26)
[2018-03-01] MEDS: FUROSEMIDE INJ 100 MG in SODIUM CHLORIDE 0.9% INJ 90 ML IV SCH (17:05)
[2018-03-01] MEDS: PROPOFOL 1000 MG/100 ML INJ 100 ML IV PRN ×4 (17:06→23:20)
--- NOTE | 2018-03-01 17:06 | HHI.NPPN ---
Subjective Complaints: Shortness of Breath General Problems: Edema, Hypertension Renal Failure: Chronic, Acute History of Present Illness This is a 67-year-old male with a past medical history of hypertension, hyperlipidemia, chronic kidney disease, history of acute kidney injury, congestive heart failure, chronic obstructive pulmonary disease, history of lymphedema of the leg, morbid obesity, came to the hospital with generalized weakness. Nephrology was called to see the patient because of very high BUN and creatinine and high potassium. The patient has a history of chronic kidney disease and he has recurrent acute kidney injury. The patient now came with a creatinine of 1.9 and a potassium of 6.8. The patient previously has creatinine in the range of 1.4-1.5 most of the time, and he had acute kidney injury in April of last year where the creatinine went up to 3.8. 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 The patient is not a very good historian. Most of the history was taken from patient's chart and some from the patient himself. According to him, he was feeling weak and tired, and he has worsening shortness of breath and he came to the hospital. He denies taking any nonsteroid anti- inflammatory drugs. He denies taking any diuretics. He has this swelling in the legs and he has wound in both legs, for which, according to him, he is doing the dressing by himself. There is no documentation of any antibiotics for him. Additional Remarks Patient sedated and intubated (Alana Petty) Review of Systems General General Remarks Unable to do ROS patient is intubated (Alana Petty) Objective Data Data Vital Signs Date Time Temp Pulse Resp B/P (MAP) Pulse Ox O2 Delivery O2 Flow Rate FiO2 03/01/18 15:38 95 50 03/01/18 12:00 66 03/01/18 10:50 100 35 03/01/18 09:24 Nasal Cannula 2.00 03/01/18 08:10 Nasal Cannula 4.00 03/01/18 08:00 98.4 88 24 129/80 (96) 94 03/01/18 08:00 81 03/01/18 07:42 97 BiPAP 35 03/01/18 07:40 97 35 03/01/18 04:46 93 35 03/01/18 04:30 83 22 139/82 (101) 88 03/01/18 04:16 70 03/01/18 04:00 76 03/01/18 03:30 16 03/01/18 03:00 74 03/01/18 02:00 58 03/01/18 01:00 58 03/01/18 00:15 98 25 03/01/18 00:00 109 20 154/90 (111) 97 03/01/18 00:00 62 03/01/18 00:00 63 02/28/18 23:00 66 02/28/18 22:00 74 02/28/18 21:52 96 25 02/28/18 21:52 Nasal Cannula 2.00 02/28/18 21:00 78 02/28/18 20:16 108 22 156/88 (110) 92 02/28/18 20:09 68 02/28/18 20:00 98.5 88 16 166/88 (114) 97 02/28/18 20:00 Nasal Cannula 2.00 25 02/28/18 20:00 76 02/28/18 19:00 90 02/28/18 18:00 81 02/28/18 17:00 86 (Alana Petty) -: 02/27/18 0411 03/01/18 0943 Imaging Last Impressions Chest X-Ray 03/01/18 0000 Signed Impressions: Service Date/Time: Thursday, March 01, 2018 13:21 - CONCLUSION: New small infiltrate right infrahilar region and interval development of engorgement of the central bronchopulmonary markings. Federico Ocampo MD Renal Ultrasound 02/26/18 0000 Signed Impressions: Service Date/Time: Monday, February 26, 2018 14:30 - CONCLUSION: Stable exam; no evidence of hydronephrosis. Raf Mosqueda MD (Alana Petty) Physical Exam General Appearance: Obese (Alana Petty) Pulmonary Resp Exam: Breath Sounds Equal, No Distress, Decreased Bases Resp Remarks intubated (Alana Petty) Cardiology CV Exam: Regular (Alana Petty) Gastrointestinal/Abdomen GI Exam: Soft, Non-Tender (Alana PettyP) Genitourinary Exam: Flank Non-Tender (Alana PettyP) Integumentary Skin Exam: Clear, Warm (Alana Petty) Extremeties Extremities Exam: Moderate Edema, Pitting Edema, Dependent Edema (Alana PettyP) Neurologic Neuro Exam: Comatose (Alana Petty) Assessment/Plan Discussed Condition With: Patient Problem List: (1) CHRISTAL (acute kidney injury) ICD Codes: N17.9 - Acute kidney failure, unspecified Plan: Acute Kidney injury possible related to prerenal CKD possibly related to HTN or renovascular disease. Creatinine stable at 1.53 Urine K was low. Patient transferred for respiratory distress and intubated Plan Continue lasix gtt Maintain indwelling catheter for accurate I+O Continue to follow the urine output and BMP, and potassium level with aggressive diuresis Avoid Nephrotoxins. (2) Hyperkalemia ICD Codes: E87.5 - Hyperkalemia Status: Acute Plan: Potassium at 5.2 Lasix gtt started (3) UTI (urinary tract infection) ICD Codes: N39.0 - Urinary tract infection, site not specified Status: Acute Plan: On ceftriaxone (Alana Petty) Problem List: (1) CHRISTAL (acute kidney injury) ICD Codes: N17.9 - Acute kidney failure, unspecified Plan: Acute Kidney injury possible related to prerenal CKD possibly related to HTN or renovascular disease. Creatinine stable at 1.53 Urine K was low. Patient transferred for respiratory distress and intubated Plan Continue Lasix gtt Maintain indwelling catheter for accurate I+O Continue to follow the urine output and BMP, and potassium level with aggressive diuresis Avoid Nephrotoxins. Patient seen and examined, agree with above. Has respiratory failure, getting intubated. To start Lasix GTT. (2) Hyperkalemia ICD Codes: E87.5 - Hyperkalemia Status: Acute Plan: Potassium at 5.2 Lasix gtt started (3) UTI (urinary tract infection) ICD Codes: N39.0 - Urinary tract infection, site not specified Status: Acute Plan: On ceftriaxone (Mike Quesada MD) Problem Qualifiers (1) UTI (urinary tract infection): Qualified Codes: N39.0 - Urinary tract infection, site not specified Alana Petty Mar 01, 2018 17:06 Mike Queasda MD Mar 01, 2018 18:33
--- NOTE | 2018-03-01 18:25 | PD.PROCEDR ---
Procedure Note Procedure Diagnosis: Systolic heart failure, hypercapnic respiratory failure, chronic kidney disease Operation: 1. Oral tracheal intubation 92053 2. Insertion left subclavian central venous line [id number] 3. Insertion left radial artery monitoring line [id number] Procedure: Timeout performed and patient properly identified. Gentle bag mask ventilation with oral airway performed. Versed 5 mg and rocuronium 100 mg intravenous administration. Intubated orally using #8 tube. Position confirmed with CO2 detection, bilateral breath sounds, oxygen saturation 100%. Patient connected to ventilator. Left chest pain with Betadine and draped sterilely. Left subclavian vein cannulated under the clavicle using thin- walled needle. Wire easily advanced to the central circulation and dilator passed over wire. Catheter passed over wire to 19 cm. Lumens aspirated and flushed. Jourdan test normal left hand. Left radial artery cannulated with 20- gauge needle after prepping the wrist. Wire passed through needle and cannula passed over wire for 3 cm length. Dressing applied. Circulation intact to the left hand following procedure. Chest x-ray confirmed endotracheal tube and central venous line in good position. Reinaldo Villavicencio MD Mar 01, 2018 18:24
[2018-03-01] MEDS: CHLORHEXIDINE 0.12% (ORAL KIT) 15 ML CUP MT SCH (20:24)
[2018-03-01] MEDS: cefTRIAXone INJ 1,000 MG in SODIUM CHLORIDE 0.9% INJ 100 ML IV SCH (20:25)
[2018-03-01] MEDS: LACTULOSE SYRUP 20 GM/30 ML CUP PO SCH (20:40)
[2018-03-02] VITALS (20 sets, daily range): BP systolic 103–132; BP diastolic 47–63; PULSE 62–92; RESP 16–18; TEMP 93–97.5; O2SAT 94–99
[2018-03-02] MEDS: FUROSEMIDE INJ 100 MG in SODIUM CHLORIDE 0.9% INJ 90 ML IV SCH ×2 (01:39→10:49)
[2018-03-02] MEDS: PROPOFOL 1000 MG/100 ML INJ 100 ML IV PRN ×11 (01:39→23:19)
[2018-03-02] MEDS: MILRINONE INJ 20 MG in SODIUM CHLORIDE 0.9% INJ 80 ML IV SCH ×6 (01:40→22:50)
[2018-03-02] MEDS: CHLORHEXIDINE GLUCONATE 2 % 1 PACK (2 CLOTHS)(taper/protocol) TOPICAL SCH (04:00)
[2018-03-02 04:38] LABS: HEMATOCRIT 28.3 % (39.0-51.0); MEAN CELL VOLUME 101.8 FL (80.0-100.0); MEAN CORPUSCULAR HEMOGLOBIN 32.5 PG (27.0-34.0); MEAN CORPUSCULAR HGB CONC 31.9 % (32.0-36.0); MEAN PLATELET VOLUME 10.2 FL (7.0-11.0); PLATELET COUNT 137 TH/MM3 (150-450); RED BLOOD COUNT 2.78 MIL/MM3 (4.50-5.90); RED CELL DISTRIBUTION WIDTH 14.6 % (11.6-17.2); WHITE BLOOD COUNT 11.2 TH/MM3 (4.0-11.0)
[2018-03-02 04:48] LABS: BICARBONATE 22.1 MEQ/L (21.0-32.0); CALCIUM 7.5 MG/DL (8.5-10.1); CREATININE 1.82 MG/DL (0.60-1.30); DIRECT BILIRUBIN ADULT 0.1 MG/DL (0.0-0.2); MAGNESIUM 2.2 MG/DL (1.5-2.5); PHOSPHORUS 3.3 MG/DL (2.5-4.9)
[2018-03-02 04:50] LABS: INDIRECT BILIRUBIN 0.2 MG/DL (0.0-0.8); TOTAL BILIRUBIN ADULT 0.3 MG/DL (0.2-1.0); TOTAL PROTEIN 5.6 GM/DL (6.4-8.2)
[2018-03-02] MEDS ORDERED: ATROPINE SULFATE 1 MG/10 ML SYRINGE ONE (04:58)
[2018-03-02] MEDS ORDERED: EPINEPHrine HCL (1:1000) 1 MG/ML VIAL ONE (04:59)
[2018-03-02] MEDS: LACTULOSE SYRUP 20 GM/30 ML CUP PO SCH (07:40)
[2018-03-02] MEDS: BUDESONIDE-FORMOTEROL 160/4.5 MCG INHALER INH SCH ×2 (07:40→20:42)
[2018-03-02] MEDS: PANTOPRAZOLE SOD 40 MG DELAYED RELEASE TAB PO SCH (07:40)
[2018-03-02] MEDS: CHLORHEXIDINE 0.12% (ORAL KIT) 15 ML CUP MT SCH ×2 (07:40→19:55)
[2018-03-02] MEDS: METOPROLOL TARTRATE 25 MG TAB PO SCH ×2 (07:40→20:00)
[2018-03-02] MEDS: DOCUSATE SODIUM 50 MG/SENNA 8.6 MG TAB PO SCH ×2 (07:40→20:00)
[2018-03-02] MEDS: SODIUM CHLORIDE 0.9% FLUSH 10 ML FLUSH IV FLUSH SCH ×2 (07:41→20:43)
[2018-03-02] MEDS: HEPARIN SODIUM - SQ 10,000 UNITS/ML VIAL SQ SCH ×2 (07:41→20:00)
[2018-03-02] MEDS: RIFAXIMIN 200 MG TAB PO SCH ×3 (08:00→22:49)
[2018-03-02] MEDS ORDERED: PHENYLEPHRINE 40 MG in D5W 500 ML IV PRN (13:30)
[2018-03-02] MEDS ORDERED: TERBUTALINE INJ 1 MG/ML AMP SQ PRN (13:30)
--- NOTE | 2018-03-02 13:47 | HHI.CCPN ---
Subjective Remarks/Hospital Course This is a 67-year-old male with a PMH of Morbid Obesity, Prostate CA, HTN, Hyperlipidemia, COPD, Gout, CHF (Echo 09/29/2017 w/ EF 50-55%) who presented to the ER w/ complaints of generalized weakness and bilateral lower extremity pain x1 day. States he ran out of his medications approx 3wks ago, has noticed worsening weakness, unable to pull himself out of bed today. Notes chronic lower extremity wounds for approx 1 year, now w/ worsening drainage. Denies fever or chills. On arrival, BP 148/71, HR 60, O2 sat 98% on 2L NC, Afebrile. WBC normal. K+ 6.8. Creatinine 1.93, previously one-point 03/03 and 09/30/17. Troponin negative. INR 1.1. UA positive UTI. CXR pulmonary venous congestion , early pulmonary edema. S/p Insulin, D50, Ca and Kayexalate in ER. Dr. Quesada consulted for CHRISTAL and Hyperkalemia. S/p Rocephin for UTI 03/01: Continued CO2 retention and respiratory acidosis incompatible with survival despite BiPAP. Brought emergently to CVICU where I met him on his arrival. CXR and exam reveal fluid overload and new RLL infiltrate. Intubated immediately, central line placed and CVP 27 mm Hg. Started on milrinone and lasix gtt infusion. 3 remains intubated heavily sedated for ventilator synchrony. Remains on milrinone at 0.375, amylase against fusion at 10 mg/h. CVP has improved to 15. UO 2L in 24 hours Objective Vital Signs Date Time Temp Pulse Resp B/P (MAP) Pulse Ox O2 Delivery O2 Flow Rate FiO2 03/02/18 11:27 97 60 03/02/18 10:48 80 116/57 03/02/18 06:00 97.5 18 03/02/18 04:00 Mechanical Ventilator 03/01/18 09:24 2.00 Intake and Output 03/02/18 03/02/18 03/03/18 08:00 16:00 00:00 Intake Total 500 ml Output Total 1877 ml Balance -1377 ml Result Diagram: 03/02/18 0400 03/02/18 0400 Other Results Laboratory Tests Test 4/2/18 14:55 03/01/18:33 03/02/18 03:57 03/02/18 06:05 Blood Gas Puncture Site LT RADIAL ART LINE ART LINE ART LINE Blood Gas Patient Temperature 98.6 98.6 98.6 98.6 Blood Gas HCO3 22 mmol/L (22-26) 21 mmol/L (22-26) 20 mmol/L (22-26) 19 mmol/L (22-26) Blood Gas Base Excess -5.9 mmol/L (-2-2) -5.8 mmol/L (-2-2) -6.7 mmol/L (-2-2) -7.0 mmol/L (-2-2) Blood Gas Oxygen Saturation 93 % (90-100) 92 % (90-100) 93 % (90-100) 94 % ( 90-100) Arterial Blood pH 7.15 (7.380-7.420) 7.21 (7.380-7.420) 7.21 (7.380-7.420) 7.23 (7.380-7.420) Arterial Blood Partial Pressure CO2 65 mmHg (38-42) 54 mmHg (38-42) 52 mmHg (38-42) 47 mmHg (38-42) Arterial Blood Partial Pressure O2 90 mmHg (61-120) 85 mmHg (61-120) 87 mmHg (61-120) 93 mmHg (61-120) Arterial Blood Oxygen Content 14.3 Vol % (12.0-20.0) 12.5 Vol % (12.0-20.0) 12.2 Vol % (12.0-20.0) 12.0 Vol % (12.0-20.0) Arterial Blood Carboxyhemoglobin 0.8 % (0-4) 0.0 % (0-4) 0.7 % (0-4) 0.7 % (0-4) Arterial Blood Methemoglobin 1.7 % (0-2) 1.0 % (0-2) 1.5 % (0-2) 1.5 % (0-2) Blood Gas Hemoglobin 10.9 G/DL (12.0-16.0) 9.6 G/DL (12.0-16.0) 9.3 G/DL (12.0-16.0) 9.0 G/DL (12.0-16.0) Oxygen Delivery Device BIPAP VENTILATOR VENT VENTILATOR Blood Gas Ventilator Setting IPAP20/EPAP8 SEE COMMENTS SEE COMMENTS Blood Gas Inspired Oxygen 35 % 60 % 60 % 60 % Objective Remarks Head: Edematous. Neck: Supple, airway widely patent. Lungs: Diffuse crackles and coarse sounds bilaterally Heart: Mildly Tachycardic, distant tones. CVP 15 Abdomen: Large soft, no guarding or tenderness. Extremities: Chronic brawny edema both lower legs, circumferential. Chronically infected skin cracks, suspect fungal. Neuro: Moves 4 limbs to stimulation. KALIE. Tracks with eyes. On lightening sedation follows commands A/P Problem List: (1) Hypercapnic respiratory failure ICD Code: J96.92 - Respiratory failure, unspecified with hypercapnia (2) CHF (congestive heart failure) ICD Code: I50.9 - Heart failure, unspecified Status: Acute (3) Pneumonia ICD Code: J18.9 - Pneumonia, unspecified organism (4) [place]-di-by[place] kidney injury ICD Code: N17.9 - Acute kidney failure, unspecified; N18.9 - Chronic kidney disease, unspecified Status: Acute (5) Hyperkalemia ICD Code: E87.5 - Hyperkalemia Status: Acute (6) Morbid obesity ICD Code: E66.01 - Morbid (severe) obesity due to excess calories Status: Chronic Assessment and Plan Plan: RESP: PRVC vent mode, PEEP 10, aim for pH 7.28 - 7.35 range. Sputum culture for RLL infiltrate. Start weaning trials once FiO2 down to 45%, currently 60%. And PEEP below 8 CV: Lasix gtt. Milrinone. Off Levophed. NEURO: Propofol sedation. Daily sedation vacation GI: OG to LIS. Start diet with Nepro : Foster to CBD. If urine > 500/hr, decrease lasix gtt to 5 mg/hr, at this time continue at 10 mg per hour ENDO: SSI for euglycemia prn. HEME: CBC dialy ID: f/u Sputum culture negative to date, continue abx as ordered. PX: Heparin DVT px. Pepcid GI px. Overall impression: Patient is critically ill with respiratory failure requiring mechanical ventilation. Multiple comorbid conditions contribute to this predicament. Continue aggressive diuretic therapy and milrinone. Sort out bronchospasm from cardiac asthma after he loses about 10 liters of excess fluid. Renal function slightly worsened Critical care 35 mins aside from procedures. Problem Qualifiers (1) Hypercapnic respiratory failure: Qualified Codes: J96.22 - Acute and chronic respiratory failure with hypercapnia (2) CHF (congestive heart failure): Qualified Codes: I50.23 - Acute on chronic systolic (congestive) heart failure (3) Pneumonia: Keshia Leahy MD Mar 02, 2018 13:47
--- NOTE | 2018-03-02 15:04 | HHI.NPPN ---
Subjective Complaints: Shortness of Breath General Problems: Edema, Hypertension Renal Failure: Chronic, Acute History of Present Illness This is a 67-year-old male with a past medical history of hypertension, hyperlipidemia, chronic kidney disease, history of acute kidney injury, congestive heart failure, chronic obstructive pulmonary disease, history of lymphedema of the leg, morbid obesity, came to the hospital with generalized weakness. Nephrology was called to see the patient because of very high BUN and creatinine and high potassium. The patient has a history of chronic kidney disease and he has recurrent acute kidney injury. The patient now came with a creatinine of 1.9 and a potassium of 6.8. The patient previously has creatinine in the range of 1.4-1.5 most of the time, and he had acute kidney injury in April of last year where the creatinine went up to 3.8. 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 The patient is not a very good historian. Most of the history was taken from patient's chart and some from the patient himself. According to him, he was feeling weak and tired, and he has worsening shortness of breath and he came to the hospital. He denies taking any nonsteroid anti- inflammatory drugs. He denies taking any diuretics. He has this swelling in the legs and he has wound in both legs, for which, according to him, he is doing the dressing by himself. There is no documentation of any antibiotics for him. Additional Remarks Patient sedated and intubated. UOP is good with Lasix gtt. (Alana Petty) Review of Systems General General Remarks Unable to do ROS patient is intubated (Alana Petty) Objective Data Data Vital Signs Date Time Temp Pulse Resp B/P (MAP) Pulse Ox O2 Delivery O2 Flow Rate FiO2 03/02/18 11:27 97 60 03/02/18 10:48 80 116/57 03/02/18 08:58 95 60 03/02/18 08:00 79 03/02/18 06:49 80 123/60 03/02/18 06:00 97.5 79 18 106/54 (71) 97 110/58 (75) 03/02/18 06:00 79 03/02/18 05:05 99 60 03/02/18 05:00 98 100 4/3/18 04:19 97 60 03/02/18 04:00 60 03/02/18 04:00 96.1 62 18 103/51 (68) 97 103/47 (65) 03/02/18 04:00 96 Mechanical Ventilator 60 03/02/18 03:41 97 60 03/02/18 01:40 80 98/46 03/02/18 00:00 95 60 03/02/18 00:00 96 Mechanical Ventilator 60 03/02/18 00:00 60 03/02/18 00:00 79 03/01/18 23:00 96.5 77 18 108/58 (75) 96 112/51 (71) 03/01/18 22:04 97 60 03/01/18 21:00 79 96/47 03/01/18 20:26 80 98/49 03/01/18 20:00 97.7 84 18 98/51 (67) 95 101/47 (65) 03/01/18 20:00 95 Mechanical Ventilator 60 03/01/18 20:00 60 03/01/18 19:00 86 03/01/18 17:04 70 129/63 03/01/18 16:00 93 03/01/18 16:00 60 03/01/18 16:00 95 Mechanical Ventilator 60 03/01/18 16:00 98.2 76 18 114/65 (81) 94 03/01/18 15:38 95 50 (Alana Petty) -: 03/02/18 0400 03/02/18 0400 Microbiology 03/01/18 Gram Stain - Final, Resulted 03/01/18 Sputum Culture - Preliminary, Resulted NO GROWTH IN 24 HOURS. Imaging Last Impressions Chest X-Ray 03/01/18 0000 Signed Impressions: Service Date/Time: Thursday, March 01, 2018 16:25 - CONCLUSION: 1. Left-sided central line in satisfactory position with no evidence of pneumothorax. Ivan Trejo MD Renal Ultrasound 02/26/18 0000 Signed Impressions: Service Date/Time: Monday, February 26, 2018 14:30 - CONCLUSION: Stable exam; no evidence of hydronephrosis. Raf Mosqueda MD (Alana Petty) Physical Exam General Appearance: No Acute Distress, Obese Appearance Remarks intubated and sedated (Alana Petty) Pulmonary Resp Exam: Breath Sounds Equal, No Distress, Decreased Bases Resp Remarks intubated (Alana Petty) Cardiology CV Exam: Regular (Alana Petty) Gastrointestinal/Abdomen GI Exam: Soft, Non-Tender (Alana Petty) Genitourinary Exam: Flank Non-Tender (Alana Petty) Integumentary Skin Exam: Clear, Warm (Alana Petty) Extremeties Extremities Exam: Moderate Edema, Pitting Edema, Dependent Edema (Aalna Petty) Neurologic Neuro Exam: Sedated (Alana Petty) Assessment/Plan Discussed Condition With: Patient Problem List: (1) CHRISTAL (acute kidney injury) ICD Codes: N17.9 - Acute kidney failure, unspecified Plan: Acute Kidney injury possible related to prerenal CKD possibly related to HTN or renovascular disease. Creatinine at 1.83 up from 1.53 Urine K was low. Patient is sedated and intubated On milrinone renal dose infusing. Plan Continue Lasix gtt good UOP Maintain indwelling catheter for accurate I+O Continue to follow the urine output and BMP, and potassium level with aggressive diuresis Avoid Nephrotoxins. (2) Hyperkalemia ICD Codes: E87.5 - Hyperkalemia Status: Acute Plan: Resolved on Lasix gtt (3) UTI (urinary tract infection) ICD Codes: N39.0 - Urinary tract infection, site not specified Status: Acute Plan: On ceftriaxone (Alana Petty) Problem List: (1) CHRISTAL (acute kidney injury) ICD Codes: N17.9 - Acute kidney failure, unspecified Plan: Acute Kidney injury possible related to prerenal CKD possibly related to HTN or renovascular disease. Creatinine at 1.83 up from 1.53 Urine K was low. Patient is sedated and intubated On milrinone renal dose infusing. Plan Continue Lasix gtt good UOP Maintain indwelling catheter for accurate I+O Continue to follow the urine output and BMP, and potassium level with aggressive diuresis Avoid Nephrotoxins. Patient seen and examined, agree with above. Intubated, continue Lasix, follow the urine out put and BMP. (2) Hyperkalemia ICD Codes: E87.5 - Hyperkalemia Status: Acute Plan: Resolved on Lasix gtt (3) UTI (urinary tract infection) ICD Codes: N39.0 - Urinary tract infection, site not specified Status: Acute Plan: On ceftriaxone (Mike Quesada MD) Problem Qualifiers (1) UTI (urinary tract infection): Qualified Codes: N39.0 - Urinary tract infection, site not specified Alana Petty Mar 02, 2018 15:04 Mike Quesada MD Mar 02, 2018 18:52
[2018-03-02] MEDS: cefTRIAXone INJ 1,000 MG in SODIUM CHLORIDE 0.9% INJ 100 ML IV SCH (20:00)
[2018-03-03] VITALS (18 sets, daily range): BP systolic 101–120; BP diastolic 53–66; PULSE 91–106; RESP 11–29; TEMP 97.2–97.7; O2SAT 94–98
[2018-03-03] MEDS: PROPOFOL 1000 MG/100 ML INJ 100 ML IV PRN ×8 (01:28→22:32)
[2018-03-03] MEDS: MILRINONE INJ 20 MG in SODIUM CHLORIDE 0.9% INJ 80 ML IV SCH ×4 (03:37→20:18)
[2018-03-03] MEDS: CHLORHEXIDINE GLUCONATE 2 % 1 PACK (2 CLOTHS)(taper/protocol) TOPICAL SCH (03:38)
[2018-03-03] MEDS: RIFAXIMIN 200 MG TAB PO SCH ×3 (06:10→21:53)
[2018-03-03] MEDS: FUROSEMIDE INJ 100 MG in SODIUM CHLORIDE 0.9% INJ 90 ML IV SCH (07:57)
[2018-03-03] MEDS: DOCUSATE SODIUM 50 MG/SENNA 8.6 MG TAB PO SCH ×2 (07:58→21:53)
[2018-03-03] MEDS: PANTOPRAZOLE SOD 40 MG DELAYED RELEASE TAB PO SCH (07:59)
[2018-03-03] MEDS: METOPROLOL TARTRATE 25 MG TAB PO SCH ×2 (07:59→21:53)
[2018-03-03] MEDS: HEPARIN SODIUM - SQ 10,000 UNITS/ML VIAL SQ SCH ×2 (07:59→21:53)
[2018-03-03] MEDS: BUDESONIDE-FORMOTEROL 160/4.5 MCG INHALER INH SCH ×2 (07:59→21:00)
[2018-03-03] MEDS: SODIUM CHLORIDE 0.9% FLUSH 10 ML FLUSH IV FLUSH SCH ×2 (07:59→21:54)
[2018-03-03] MEDS: LACTULOSE SYRUP 20 GM/30 ML CUP PO SCH (07:59)
[2018-03-03] MEDS: CHLORHEXIDINE 0.12% (ORAL KIT) 15 ML CUP MT SCH ×2 (08:00→20:00)
--- NOTE | 2018-03-03 12:15 | HHI.CCPN ---
Subjective Remarks/Hospital Course This is a 67-year-old male with a PMH of Morbid Obesity, Prostate CA, HTN, Hyperlipidemia, COPD, Gout, CHF (Echo 09/29/2017 w/ EF 50-55%) who presented to the ER w/ complaints of generalized weakness and bilateral lower extremity pain x1 day. States he ran out of his medications approx 3wks ago, has noticed worsening weakness, unable to pull himself out of bed today. Notes chronic lower extremity wounds for approx 1 year, now w/ worsening drainage. Denies fever or chills. On arrival, BP 148/71, HR 60, O2 sat 98% on 2L NC, Afebrile. WBC normal. K+ 6.8. Creatinine 1.93, previously one-point 03/03 and 09/30/17. Troponin negative. INR 1.1. UA positive UTI. CXR pulmonary venous congestion , early pulmonary edema. S/p Insulin, D50, Ca and Kayexalate in ER. Dr. Quesada consulted for CHRISTAL and Hyperkalemia. S/p Rocephin for UTI 03/01: Continued CO2 retention and respiratory acidosis incompatible with survival despite BiPAP. Brought emergently to CVICU where I met him on his arrival. CXR and exam reveal fluid overload and new RLL infiltrate. Intubated immediately, central line placed and CVP 27 mm Hg. Started on milrinone and lasix gtt infusion. 03/02 remains intubated heavily sedated for ventilator synchrony. Remains on milrinone at 0.375, amylase against fusion at 10 mg/h. CVP has improved to 15. UO 2L in 24 hours 03/03: Remains intubated sedated, remains on high vent requirement with PEEP of 10 FiO2 60% oxygen saturation hardly above 90. Remains on milrinone infusion and Lasix infusion. Urine output 2.6L in 24 hours Objective Vital Signs Date Time Temp Pulse Resp B/P (MAP) Pulse Ox O2 Delivery O2 Flow Rate FiO2 03/03/18 12:00 97.3 91 11 118/58 (78) 95 114/61 (78) 03/03/18 11:02 60 03/02/18 16:00 Mechanical Ventilator 03/01/18 09:24 2.00 Intake and Output 03/03/18 03/03/18 03/04/18 08:00 16:00 00:00 Intake Total 620 ml 300 ml Output Total 1475 ml Balance -855 ml 300 ml Result Diagram: 03/02/18 0400 03/02/18 0400 Other Results Microbiology Date/Time Source Procedure Growth Status 03/01/18 17:45 Sputum Endotracheal Gram Stain - Final Complete 03/01/18 17:45 Sputum Endotracheal Sputum Culture - Final LIGHT GROWTH NORMAL RESPIRATORY LINDA Complete Objective Remarks GEN: Critically ill, morbidly obese -[place] male Head: Edematous. Neck: Supple, airway widely patent. Lungs: Diffuse crackles and coarse sounds bilaterally Heart: Mildly Tachycardic, distant tones. Remains on milrinone and Lasix infusion Abdomen: Large soft, no guarding or tenderness. Extremities: Chronic brawny edema both lower legs, circumferential. Chronically infected skin cracks, suspect fungal. Neuro: Moves 4 limbs to stimulation. KALIE. Tracks with eyes. On lightening sedation follows commands A/P Problem List: (1) Hypercapnic respiratory failure ICD Code: J96.92 - Respiratory failure, unspecified with hypercapnia (2) CHF (congestive heart failure) ICD Code: I50.9 - Heart failure, unspecified Status: Acute (3) Pneumonia ICD Code: J18.9 - Pneumonia, unspecified organism (4) [place]-sg-mbabmoq kidney injury ICD Code: N17.9 - Acute kidney failure, unspecified; N18.9 - Chronic kidney disease, unspecified Status: Acute (5) Hyperkalemia ICD Code: E87.5 - Hyperkalemia Status: Acute (6) Morbid obesity ICD Code: E66.01 - Morbid (severe) obesity due to excess calories Status: Chronic Assessment and Plan Plan: RESP: PRVC vent mode, PEEP 10, aim for pH 7.28 - 7.35 range. Sputum culture for RLL infiltrate. Start weaning trials only when FiO2 down to 45%, currently 60%. Unable to do SBT in current settings CV: Lasix gtt-DC and start Lasix 40 mg IV q12. Milrinone. Off Levophed. Tyson Track monitoring NEURO: Propofol sedation. Daily sedation vacation GI: OG to LIS. Started diet with Nepro : Foster to CBD. DC lasix gtt 10 mg/hr, start Lasix 40 mg IV q12 ENDO: SSI for euglycemia prn. HEME: CBC dialy ID: f/u Sputum culture negative to date, continue abx as ordered. PX: Heparin DVT px. Pepcid GI px. Overall impression: Patient is critically ill with respiratory failure requiring mechanical ventilation. Multiple comorbid conditions contribute to this predicament. Continue aggressive diuretic therapy and milrinone. Sort out bronchospasm from cardiac asthma after he loses about 10 liters of excess fluid. Renal function slightly worsened Critical care 35 mins aside from procedures. Problem Qualifiers (1) Hypercapnic respiratory failure: Qualified Codes: J96.22 - Acute and chronic respiratory failure with hypercapnia (2) CHF (congestive heart failure): Qualified Codes: I50.23 - Acute on chronic systolic (congestive) heart failure (3) Pneumonia: Keshia Leahy MD Mar 03, 2018 12:15
--- NOTE | 2018-03-03 13:05 | RADRPT ---
EXAM DATE/TIME: 03/03/2018 12:39 [facility] COMPARISON: No previous studies available for comparison. INDICATIONS : Respiratory distress. MEDICAL HISTORY : Congestive heart failure. Hypertension. Chronic obstructive pulmonary disease. SURGICAL HISTORY : None. ENCOUNTER: Initial ACUITY: 4 - 6 days PAIN SCORE: 0/10 LOCATION: Bilateral chest FINDINGS: Endotracheal tube in good position. NG tube is in esophagus. Heart size enlarged. Bilateral airspace disease in the lungs. No significant effusion. No pneumothorax. CONCLUSION: 1. Endotracheal tube and nasogastric tube in good position. Cardiomegaly with mild edema pattern, sli ghtly increased from February 2. Jose Landry MD on March 03, 2018 at 13:03 Board Certified Radiologist. This report was verified electronically.
[2018-03-03 13:18] LABS: AUTOMATED NEUTROPHIL # 7.1 TH/MM3 (1.8-7.7); BASOPHIL # 0.1 TH/MM3 (0-0.2); BASOPHIL % 0.9 % (0.0-2.0); EOSINOPHIL # 0.2 TH/MM3 (0-0.4); EOSINOPHIL % 2.1 % (0.0-4.0); HEMATOCRIT 28.7 % (39.0-51.0); HEMOGLOBIN 9.3 GM/DL (13.0-17.0); LYMPH % 13.7 % (9.0-44.0); LYMPHOCYTE # 1.4 TH/MM3 (1.0-4.8); MEAN CELL VOLUME 99.6 FL (80.0-100.0); MEAN CORPUSCULAR HEMOGLOBIN 32.2 PG (27.0-34.0); MEAN CORPUSCULAR HGB CONC 32.3 % (32.0-36.0); MEAN PLATELET VOLUME 10.6 FL (7.0-11.0); MONO % 12.8 % (0.0-8.0); MONOCYTE # 1.3 TH/MM3 (0-0.9); NEUT % 70.5 % (16.0-70.0); PLATELET COUNT 156 TH/MM3 (150-450); RED BLOOD COUNT 2.88 MIL/MM3 (4.50-5.90); RED CELL DISTRIBUTION WIDTH 14.3 % (11.6-17.2); WHITE BLOOD COUNT 10.1 TH/MM3 (4.0-11.0)
[2018-03-03 13:38] LABS: AST (GOT) 16 U/L (15-37); BICARBONATE 21.6 MEQ/L (21.0-32.0); BLOOD UREA NITROGEN 49 MG/DL (7-18); CHLORIDE 114 MEQ/L (98-107); CREATININE 2.29 MG/DL (0.60-1.30); GLOMERULAR FILTRATION RATE 35 ML/MIN (>89); GLUCOSE,RANDOM 107 MG/DL (74-106); MAGNESIUM 2.3 MG/DL (1.5-2.5); SODIUM (NA) 144 MEQ/L (136-145)
[2018-03-03 13:39] LABS: ALT (GPT) 8 U/L (12-78)
[2018-03-03 13:42] LABS: ALKALINE PHOSPHATASE 77 U/L (45-117); TOTAL BILIRUBIN ADULT 0.3 MG/DL (0.2-1.0)
--- NOTE | 2018-03-03 16:21 | HHI.NPPN ---
Subjective Complaints: Shortness of Breath General Problems: Edema, Hypertension Renal Failure: Chronic, Acute History of Present Illness This is a 67-year-old male with a past medical history of hypertension, hyperlipidemia, chronic kidney disease, history of acute kidney injury, congestive heart failure, chronic obstructive pulmonary disease, history of lymphedema of the leg, morbid obesity, came to the hospital with generalized weakness. Nephrology was called to see the patient because of very high BUN and creatinine and high potassium. The patient has a history of chronic kidney disease and he has recurrent acute kidney injury. The patient now came with a creatinine of 1.9 and a potassium of 6.8. The patient previously has creatinine in the range of 1.4-1.5 most of the time, and he had acute kidney injury in April of last year where the creatinine went up to 3.8. He is not following with any rn placement according to him on a regular basis. The patient is not a very good historian. Most of the history was taken from patient's chart and some from the patient himself. According to him, he was feeling weak and tired, and he has worsening shortness of breath and he came to the hospital. He denies taking any nonsteroid anti- inflammatory drugs. He denies taking any diuretics. He has this swelling in the legs and he has wound in both legs, for which, according to him, he is doing the dressing by himself. There is no documentation of any antibiotics for him. Additional Remarks Patient sedated and intubated. UOP remains good. Creatinine rising. (Alana Petty) Review of Systems General General Remarks Unable to do ROS patient is intubated (Alana Petty) Objective Data Data 03/03/18 03/04/18 19:00 07:00 Intake Total 400 ml Balance 400 ml IV Total 400 ml Vital Signs Date Time Temp Pulse Resp B/P (MAP) Pulse Ox O2 Delivery O2 Flow Rate FiO2 03/03/18 15:36 98 107/53 03/03/18 15:01 95 60 03/03/18 12:00 97.3 91 11 118/58 (78) 95 114/61 (78) 03/03/18 12:00 91 03/03/18 11:02 95 60 03/03/18 10:11 92 105/53 03/03/18 10:00 91 03/03/18 08:00 97.2 93 18 113/53 (73) 96 108/55 (72) 03/03/18 08:00 60 03/03/18 08:00 93 03/03/18 08:00 93 113/53 (73) 108/55 (72) 03/03/18 07:17 95 60 03/03/18 06:00 102 03/03/18 04:26 96 70 03/03/18 04:00 97.9 103 20 111/53 (72) 97 120/62 (81) 03/03/18 04:00 103 03/03/18 04:00 103 111/53 (72) 120/62 (81) 03/03/18 04:00 60 03/03/18 03:37 107 101/61 03/03/18 02:00 106 03/03/18 01:06 96 70 03/03/18 00:00 100 03/03/18 00:00 60 03/03/18 00:00 99.0 100 18 105/53 (70) 98 107/56 (73) 03/03/18 00:00 100 105/53 (70) 107/56 (73) 03/02/18 22:50 94 108/53 03/02/18 22:30 95 70 03/02/18 22:00 87 03/02/18 20:00 96.8 92 18 119/56 (77) 95 108/58 (75) 03/02/18 20:00 60 03/02/18 20:00 92 119/56 (77) 108/58 (75) 03/02/18 20:00 92 03/02/18 19:55 91 108/54 03/02/18 19:15 94 60 03/02/18 18:00 80 (Alana Petty) -: 03/03/18 1255 03/03/18 1255 Physical Exam General Appearance: No Acute Distress, Obese Appearance Remarks intubated and sedated (Alana Petty) Pulmonary Resp Exam: Breath Sounds Equal, No Distress, Decreased Bases Resp Remarks intubated (Alana Petty) Cardiology CV Exam: Regular (Alana Petty) Gastrointestinal/Abdomen GI Exam: Soft, Non-Tender (Alana Petty) Genitourinary Exam: Flank Non-Tender (Alana Petty) Integumentary Skin Exam: Clear, Warm (Alana Petty) Extremeties Extremities Exam: Moderate Edema, Pitting Edema, Dependent Edema (Alana Petty) Neurologic Neuro Exam: Sedated (Alana Petty) Assessment/Plan Discussed Condition With: Patient Problem List: (1) CHRISTAL (acute kidney injury) ICD Codes: N17.9 - Acute kidney failure, unspecified Plan: Acute Kidney injury possible related to prerenal CKD possibly related to HTN or renovascular disease. Creatinine increased at 2.29 from 1.83 today. Patient is sedated and intubated On milrinone renal dose infusing. Plan Lasix discontinue and now BID Maintain indwelling catheter for accurate I+O Continue to follow the urine output and BMP Avoid Nephrotoxins. (2) Hyperkalemia ICD Codes: E87.5 - Hyperkalemia Status: Acute Plan: Resolved on Lasix gtt (3) UTI (urinary tract infection) ICD Codes: N39.0 - Urinary tract infection, site not specified Status: Acute Plan: On ceftriaxone (Alana Petty) Problem List: (1) CHRISTAL (acute kidney injury) ICD Codes: N17.9 - Acute kidney failure, unspecified Plan: Acute Kidney injury possible related to prerenal CKD possibly related to HTN or renovascular disease. Creatinine increased at 2.29 from 1.83 today. Patient is sedated and intubated On milrinone renal dose infusing. Plan Lasix infusion discontinue and now BID Maintain indwelling catheter for accurate I+O Continue to follow the urine output and BMP Avoid Nephrotoxins. Patient seen and examined, agree with above. Creatinine increase , possibly related to diuresis or ATN. Weaning as per CCM. (2) Hyperkalemia ICD Codes: E87.5 - Hyperkalemia Status: Acute Plan: Resolved on Lasix gtt (3) UTI (urinary tract infection) ICD Codes: N39.0 - Urinary tract infection, site not specified Status: Acute Plan: On ceftriaxone (Mike Quesada MD) Problem Qualifiers (1) UTI (urinary tract infection): Qualified Codes: N39.0 - Urinary tract infection, site not specified Alana Petty Mar 03, 2018 16:21 Mike Quesada MD Mar 03, 2018 18:15
[2018-03-03] MEDS: FUROSEMIDE 40 MG/4 ML VIAL IV PUSH SCH (17:50)
[2018-03-03] MEDS: cefTRIAXone INJ 1,000 MG in SODIUM CHLORIDE 0.9% INJ 100 ML IV SCH (21:54)
[2018-03-04] VITALS (25 sets, daily range): BP systolic 93–157; BP diastolic 51–78; PULSE 77–103; RESP 7–24; TEMP 97.6–98.3; O2SAT 93–99
[2018-03-04] MEDS: MILRINONE INJ 20 MG in SODIUM CHLORIDE 0.9% INJ 80 ML IV SCH ×6 (01:05→22:00)
[2018-03-04] MEDS: PROPOFOL 1000 MG/100 ML INJ 100 ML IV PRN ×7 (04:28→21:40)
[2018-03-04 05:06] LABS: AUTOMATED NEUTROPHIL # 6.4 TH/MM3 (1.8-7.7); BASOPHIL # 0.1 TH/MM3 (0-0.2); BASOPHIL % 0.9 % (0.0-2.0); EOSINOPHIL # 0.2 TH/MM3 (0-0.4); EOSINOPHIL % 2.6 % (0.0-4.0); HEMATOCRIT 29.1 % (39.0-51.0); HEMOGLOBIN 9.4 GM/DL (13.0-17.0); LYMPH % 11.5 % (9.0-44.0); MEAN CELL VOLUME 101.1 FL (80.0-100.0); MEAN CORPUSCULAR HEMOGLOBIN 32.5 PG (27.0-34.0); MEAN CORPUSCULAR HGB CONC 32.2 % (32.0-36.0); MEAN PLATELET VOLUME 10.4 FL (7.0-11.0); MONOCYTE # 1.2 TH/MM3 (0-0.9); PLATELET COUNT 154 TH/MM3 (150-450); RED BLOOD COUNT 2.87 MIL/MM3 (4.50-5.90); RED CELL DISTRIBUTION WIDTH 14.4 % (11.6-17.2); WHITE BLOOD COUNT 8.8 TH/MM3 (4.0-11.0)
[2018-03-04 05:19] LABS: ALBUMIN 2.1 GM/DL (3.4-5.0); AST (GOT) 13 U/L (15-37); BICARBONATE 20.2 MEQ/L (21.0-32.0); BLOOD UREA NITROGEN 49 MG/DL (7-18); CALCIUM 7.9 MG/DL (8.5-10.1); CHLORIDE 112 MEQ/L (98-107); CREATININE 2.35 MG/DL (0.60-1.30); GLOMERULAR FILTRATION RATE 34 ML/MIN (>89); GLUCOSE,RANDOM 123 MG/DL (74-106); MAGNESIUM 2.3 MG/DL (1.5-2.5); SODIUM (NA) 143 MEQ/L (136-145)
[2018-03-04 05:21] LABS: ALT (GPT) 7 U/L (12-78)
[2018-03-04 05:23] LABS: ALKALINE PHOSPHATASE 80 U/L (45-117); TOTAL BILIRUBIN ADULT 0.4 MG/DL (0.2-1.0); TOTAL PROTEIN 6.3 GM/DL (6.4-8.2)
[2018-03-04] MEDS: RIFAXIMIN 200 MG TAB PO SCH ×3 (05:43→22:00)
--- NOTE | 2018-03-04 06:18 | RADRPT ---
EXAM DATE/TIME: 03/04/2018 03:30 [facility] COMPARISON: CHEST SINGLE AP, March 01, 2018, 13:21. CHEST SINGLE AP, March 01, 2018, 16:25. CHEST SINGLE AP, Ap 2017, 12:39. INDICATIONS : Shortness of breath, possible pulmonary disease. MEDICAL HISTORY : Congestive heart failure. Hypertension Chronic obstructive pulmonary disease. SURGICAL HISTORY : None. ENCOUNTER: Subsequent ACUITY: 1 week PAIN SCORE: Non-responsive. LOCATION: Bilateral chest FINDINGS: Endotracheal tube, nasogastric tube and left subclavian central line are stable. The course of the le ft subclavian line is somewhat atypical. Intra-arterial positioning Be excluded on the basis of the r adiographic appearance. Clinical correlation recommended. There is stable cardiac enlargement. Vascular congestion and patchy parenchymal opacities bilaterally , grossly unchanged. CONCLUSION: Satisfactory positioning of left subclavian line cannot be confirmed radiographically. See above. Stable cardiomegaly and bilateral airspace opacities. Armond Ybarra MD on March 04, 2018 at 6:13 Board Certified Radiologist. This report was verified electronically.
[2018-03-04] MEDS: PANTOPRAZOLE SOD 40 MG DELAYED RELEASE TAB PO SCH (09:00)
[2018-03-04] MEDS: BUDESONIDE-FORMOTEROL 160/4.5 MCG INHALER INH SCH ×2 (09:00→19:47)
[2018-03-04] MEDS: LACTULOSE SYRUP 20 GM/30 ML CUP PO SCH (09:36)
[2018-03-04] MEDS: SODIUM CHLORIDE 0.9% FLUSH 10 ML FLUSH IV FLUSH SCH ×2 (09:36→19:47)
[2018-03-04] MEDS: METOPROLOL TARTRATE 25 MG TAB PO SCH ×2 (09:36→19:46)
[2018-03-04] MEDS: FUROSEMIDE 40 MG/4 ML VIAL IV PUSH SCH ×2 (09:36→18:26)
[2018-03-04] MEDS: DOCUSATE SODIUM 50 MG/SENNA 8.6 MG TAB PO SCH ×2 (09:36→19:46)
--- NOTE | 2018-03-04 09:37 | HHI.NPPN ---
Subjective Complaints: Shortness of Breath General Problems: Edema, Hypertension Renal Failure: Chronic, Acute History of Present Illness This is a 67-year-old male with a past medical history of hypertension, hyperlipidemia, chronic kidney disease, history of acute kidney injury, congestive heart failure, chronic obstructive pulmonary disease, history of lymphedema of the leg, morbid obesity, came to the hospital with generalized weakness. Nephrology was called to see the patient because of very high BUN and creatinine and high potassium. The patient has a history of chronic kidney disease and he has recurrent acute kidney injury. The patient now came with a creatinine of 1.9 and a potassium of 6.8. The patient previously has creatinine in the range of 1.4-1.5 most of the time, and he had acute kidney injury in April of last year where the creatinine went up to 3.8. He is not following with any brand coordinator according to him on a regular basis. The patient is not a very good historian. Most of the history was taken from patient's chart and some from the patient himself. According to him, he was feeling weak and tired, and he has worsening shortness of breath and he came to the hospital. He denies taking any nonsteroid anti- inflammatory drugs. He denies taking any diuretics. He has this swelling in the legs and he has wound in both legs, for which, according to him, he is doing the dressing by himself. There is no documentation of any antibiotics for him. Additional Remarks Patient sedated and intubated. UOP remains good. (Alana Petty) Review of Systems General General Remarks Unable to do ROS patient is intubated (Alana Petty) Objective Data Data Vital Signs Date Time Temp Pulse Resp B/P (MAP) Pulse Ox O2 Delivery O2 Flow Rate FiO2 03/04/18 07:40 97 60 03/04/18 06:00 93 03/04/18 05:44 93 127/59 03/04/18 04:25 97 60 03/04/18 04:00 97.8 102 18 125/57 (79) 97 103/51 (68) 03/04/18 04:00 97 115/59 (77) 101/66 (78) 03/04/18 04:00 60 03/04/18 04:00 102 03/04/18 02:00 103 03/04/18 01:05 99 120/58 03/04/18 00:06 95 60 03/04/18 00:00 60 03/04/18 00:00 94 03/04/18 00:00 97 115/59 (77) 101/66 (78) 03/04/18 00:00 97.6 99 16 115/54 (74) 96 93/59 (70) 03/03/18 22:00 94 03/03/18 21:33 94 60 03/03/18 20:18 94 103/66 03/03/18 20:00 97.7 97 18 115/59 (77) 97 101/66 (78) 03/03/18 20:00 96 03/03/18 20:00 97 115/59 (77) 101/66 (78) 03/03/18 20:00 60 03/03/18 18:00 97 03/03/18 16:00 96 118/56 (76) 110/56 (74) 03/03/18 16:00 97.5 96 29 118/56 (76) 96 110/56 (74) 03/03/18 16:00 96 03/03/18 16:00 60 03/03/18 15:36 98 107/53 03/03/18 15:01 95 60 03/03/18 14:00 99 03/03/18 12:00 97.3 91 11 118/58 (78) 95 114/61 (78) 03/03/18 12:00 91 118/58 (78) 114/61 (78) 03/03/18 12:00 60 03/03/18 12:00 91 03/03/18 11:02 95 60 03/03/18 10:11 92 105/53 03/03/18 10:00 91 (Alana Petty) -: 03/04/18 0400 03/04/18 0400 Imaging Last Impressions Chest X-Ray 03/04/18 0600 Signed Impressions: Service Date/Time: February 03:30 - CONCLUSION: Satisfactory positioning of left subclavian line cannot be confirmed radiographically. See above. Stable cardiomegaly and bilateral airspace opacities. Armond Ybarra MD Renal Ultrasound 02/26/18 0000 Signed Impressions: Service Date/Time: Monday, February 26, 2018 14:30 - CONCLUSION: Stable exam; no evidence of hydronephrosis. Raf Mosqueda MD (Alana Petty) Physical Exam General Appearance: No Acute Distress, Obese Appearance Remarks intubated and sedated (Alana Petty SALES MERCHANDISING SPECIALIST) Pulmonary Resp Exam: Breath Sounds Equal, No Distress, Decreased Bases Resp Remarks intubated (Alana Petty SALES MERCHANDISING SPECIALIST) Cardiology CV Exam: Regular (Alana Petty SALES MERCHANDISING SPECIALIST) Gastrointestinal/Abdomen GI Exam: Soft, Non-Tender (Alana Petty SALES MERCHANDISING SPECIALIST) Genitourinary Exam: Flank Non-Tender (Alana Petty SALES MERCHANDISING SPECIALIST) Integumentary Skin Exam: Clear, Warm (Alana Petty SALES MERCHANDISING SPECIALIST) Extremeties Extremities Exam: Moderate Edema, Pitting Edema, Dependent Edema (Alana PettyP) Neurologic Neuro Exam: Sedated (Alana PettyP) Assessment/Plan Discussed Condition With: Patient Problem List: (1) CHRISTAL (acute kidney injury) ICD Codes: N17.9 - Acute kidney failure, unspecified Plan: Acute Kidney injury possible related to diuresis or ATN CKD possibly related to HTN or renovascular disease. Creatinine continues to gradually increase at 2.35 from 2.29 today. Patient is sedated and intubated Potassium 4.7 Milrinone infusing. Plan Continue Lasix BID Maintain indwelling catheter for accurate I+O Continue to follow the urine output and BMP Avoid Nephrotoxins. (2) Hyperkalemia ICD Codes: E87.5 - Hyperkalemia Status: Acute Plan: Resolved (3) UTI (urinary tract infection) ICD Codes: N39.0 - Urinary tract infection, site not specified Status: Acute Plan: On ceftriaxone (Alana Petty) Problem List: (1) CHRISTAL (acute kidney injury) ICD Codes: N17.9 - Acute kidney failure, unspecified Plan: Acute Kidney injury possible related to diuresis or ATN CKD possibly related to HTN or renovascular disease. Creatinine continues to gradually increase at 2.35 from 2.29 today. Patient is sedated and intubated Potassium 4.7 Milrinone infusing. Plan Continue Lasix BID Maintain indwelling catheter for accurate I+O Continue to follow the urine output and BMP Avoid Nephrotoxins. Patient seen and examined, agree with above. Slight increase in the Creatinine continue Lasix. (2) Hyperkalemia ICD Codes: E87.5 - Hyperkalemia Status: Acute Plan: Resolved (3) UTI (urinary tract infection) ICD Codes: N39.0 - Urinary tract infection, site not specified Status: Acute Plan: On ceftriaxone (Mike Quesada MD) Problem Qualifiers (1) UTI (urinary tract infection): Qualified Codes: N39.0 - Urinary tract infection, site not specified Alana Petty Mar 04, 2018 09:37 Mike Quesada MD Mar 04, 2018 18:34
[2018-03-04] MEDS: CHLORHEXIDINE 0.12% (ORAL KIT) 15 ML CUP MT SCH ×2 (09:39→19:47)
[2018-03-04] MEDS: HEPARIN SODIUM - SQ 10,000 UNITS/ML VIAL SQ SCH ×2 (10:00→19:46)
[2018-03-04] MEDS ORDERED: SODIUM BICARBONATE 8.4% INJ 50 ML ONE (10:07)
--- NOTE | 2018-03-04 10:22 | HHI.CCPN ---
Subjective Remarks/Hospital Course This is a 67-year-old male with a PMH of Morbid Obesity, Prostate CA, HTN, Hyperlipidemia, COPD, Gout, CHF (Echo 09/29/2017 w/ EF 50-55%) who presented to the ER w/ complaints of generalized weakness and bilateral lower extremity pain x1 day. States he ran out of his medications approx 3wks ago, has noticed worsening weakness, unable to pull himself out of bed today. Notes chronic lower extremity wounds for approx 1 year, now w/ worsening drainage. Denies fever or chills. On arrival, BP 148/71, HR 60, O2 sat 98% on 2L NC, Afebrile. WBC normal. K+ 6.8. Creatinine 1.93, previously one-point 03/03 and 09/30/17. Troponin negative. INR 1.1. UA positive UTI. CXR pulmonary venous congestion , early pulmonary edema. S/p Insulin, D50, Ca and Kayexalate in ER. Dr. Quesada consulted for CHRISTAL and Hyperkalemia. S/p Rocephin for UTI 03/01: Continued CO2 retention and respiratory acidosis incompatible with survival despite BiPAP. Brought emergently to CVICU where I met him on his arrival. CXR and exam reveal fluid overload and new RLL infiltrate. Intubated immediately, central line placed and CVP 27 mm Hg. Started on milrinone and lasix gtt infusion. 03/02 remains intubated heavily sedated for ventilator synchrony. Remains on milrinone at 0.375, amylase against fusion at 10 mg/h. CVP has improved to 15. UO 2L in 24 hours 03/03: Remains intubated sedated, remains on high vent requirement with PEEP of 10 FiO2 60% oxygen saturation hardly above 90. Remains on milrinone infusion and Lasix infusion. Urine output 2.6L in 24 hours 03/04: Remains intubated, on sedation hold patient is able to follow commands. Critically ill but stabilizing. FiO2 requirement of 60% but saturation is 97% will attempt wean. Initiate Tyson Trac monitoring wean milrinone as tolerated. Creatinine 2.3 urine output 2.5 L in 24 hours. ABG shows acidemia. One amp of bicarb, increase respiratory rate to 20 Objective Vital Signs Date Time Temp Pulse Resp B/P (MAP) Pulse Ox O2 Delivery O2 Flow Rate FiO2 03/04/18 09:38 92 123/62 03/04/18 07:40 97 60 03/04/18 04:00 97.8 18 03/02/18 16:00 Mechanical Ventilator 03/01/18 09:24 2.00 Intake and Output 03/04/18 03/04/18 03/05/18 08:00 16:00 00:00 Intake Total 300 ml Output Total 1350 ml Balance -1050 ml Result Diagram: 03/04/18 0400 03/04/18 0400 Other Results Microbiology Date/Time Source Procedure Growth Status 03/01/18 17:45 Sputum Endotracheal Gram Stain - Final Complete 03/01/18 17:45 Sputum Endotracheal Sputum Culture - Final LIGHT GROWTH NORMAL RESPIRATORY LINDA Complete Laboratory Tests Test 03/04/18 09:48 03/04/18 09:50 Blood Gas Puncture Site ART LINE Blood Gas Patient Temperature 98.6 Blood Gas HCO3 19 mmol/L (22-26) Blood Gas Base Excess -6.4 mmol/L (-2-2) Blood Gas Oxygen Saturation 94 % (90-100) Arterial Blood pH 7.29 (7.380-7.420) Arterial Blood Partial Pressure CO2 41 mmHg (38-42) Arterial Blood Partial Pressure O2 95 mmHg (61-120) Arterial Blood Oxygen Content 11.6 Vol % (12.0-20.0) Arterial Blood Carboxyhemoglobin 0.6 % (0-4) Arterial Blood Methemoglobin 1.6 % (0-2) Venous Blood pH 7.27 (7.360-7.400) Venous Blood Partial Pressure CO2 48 mmHg (44-48) Venous Blood Partial Pressure O2 51 mmHg (35-40) Venous Blood HCO3 21 mmol/L (22-26) Venous Blood Oxygen Saturation 81 % (70-76) Venous Blood Oxygen Content 10.7 Vol % (9.0-17.0) Venous Blood Base Excess -4.8 mmol/L (-2-2) Blood Gas Hemoglobin 8.6 G/DL (12.0-16.0) Oxygen Delivery Device VENTILATOR Blood Gas Ventilator Setting PC/AC 25IP,RATE 18 Blood Gas Inspired Oxygen 60 % Objective Remarks GEN: Critically ill, morbidly obese -[place] male Head: AT/NC, Edematous. ENT/Neck: Supple, airway widely patent. Orotracheally intubated Lungs: Diffuse crackles and coarse sounds bilaterally Heart: Mildly Tachycardic, distant tones. Remains on milrinone infusion Abdomen: Large soft, no guarding or tenderness. Extremities: Chronic brawny edema both lower legs, circumferential. Chronically infected skin cracks, suspect fungal. Neuro: Moves 4 limbs to stimulation. KALIE. Tracks with eyes. On lightening sedation follows commands A/P Problem List: (1) Acute hypoxemic respiratory failure ICD Code: J96.01 - Acute respiratory failure with hypoxia (2) Hypercapnic respiratory failure ICD Code: J96.92 - Respiratory failure, unspecified with hypercapnia (3) CHF (congestive heart failure) ICD Code: I50.9 - Heart failure, unspecified Status: Acute (4) Pneumonia ICD Code: J18.9 - Pneumonia, unspecified organism (5) [id number] kidney injury ICD Code: N17.9 - Acute kidney failure, unspecified; N18.9 - Chronic kidney disease, unspecified Status: Acute (6) Hyperkalemia ICD Code: E87.5 - Hyperkalemia Status: Acute (7) Morbid obesity ICD Code: E66.01 - Morbid (severe) obesity due to excess calories Status: Chronic (8) CHF (congestive heart failure) ICD Code: I50.9 - Heart failure, unspecified Assessment and Plan Plan: RESP: PC/AC vent mode, PEEP 10, wean to 8, wean FiO2 to 50%, aim for pH 7.28 - 7.35 range. Sputum culture negative to date. Start weaning trials only when FiO2 down to 45%, and PEEP <8. Unable to do SBT in current settings CV: Lasix 40 mg IV q12. Milrinone-start weaning, keeping CI >2.2. Tyson Track monitoring NEURO: Propofol sedation. Daily sedation vacation. Following commands on sedation hold GI: OG to LIS. Started diet with Nepro : Foster to CBD. Lasix 40 mg IV q12 ENDO: SSI for euglycemia prn. HEME: CBC dialy ID: [id number] Sputum culture negative to date, continue abx as ordered. PX: Heparin DVT px. Pepcid GI px. Overall impression: Patient is critically ill with respiratory failure requiring mechanical ventilation. Multiple comorbid conditions contribute to this predicament. Continue aggressive diuretic therapy and milrinone. Critical care 35 mins aside from procedures. Problem Qualifiers (1) Hypercapnic respiratory failure: Qualified Codes: J96.22 - Acute and chronic respiratory failure with hypercapnia (2) CHF (congestive heart failure): Qualified Codes: I50.23 - Acute on chronic systolic (congestive) heart failure (3) Pneumonia: Keshia Leahy MD Mar 04, 2018 10:22
[2018-03-04 18:57] LABS: MAGNESIUM 2.3 MG/DL (1.5-2.5)
[2018-03-04] MEDS: cefTRIAXone INJ 1,000 MG in SODIUM CHLORIDE 0.9% INJ 100 ML IV SCH (19:46)
[2018-03-04] MEDS: MORPHINE SULFATE 2 MG/ML SYRINGE IV PUSH PRN ×2 (21:17→22:42)
[2018-03-05] VITALS (19 sets, daily range): BP systolic 126–157; BP diastolic 62–75; PULSE 67–90; RESP 1–23; TEMP 97.5–98.7; O2SAT 91–97
[2018-03-05] MEDS: MORPHINE SULFATE 2 MG/ML SYRINGE IV PUSH PRN ×4 (00:32→06:38)
[2018-03-05] MEDS: MILRINONE INJ 20 MG in SODIUM CHLORIDE 0.9% INJ 80 ML IV SCH ×4 (02:20→15:20)
[2018-03-05] MEDS: PROPOFOL 1000 MG/100 ML INJ 100 ML IV PRN ×8 (02:22→23:48)
[2018-03-05] MEDS: RESP: ALBUTEROL 2.5 MG/IPRATROPIUM 0.5 MG NEB (PRN) NEB ×2 (04:16→21:29)
[2018-03-05 05:30] LABS: AUTOMATED NEUTROPHIL # 4.9 TH/MM3 (1.8-7.7); BASOPHIL # 0.1 TH/MM3 (0-0.2); BASOPHIL % 1.1 % (0.0-2.0); EOSINOPHIL # 0.2 TH/MM3 (0-0.4); EOSINOPHIL % 3.2 % (0.0-4.0); HEMATOCRIT 28.3 % (39.0-51.0); HEMOGLOBIN 9.1 GM/DL (13.0-17.0); LYMPHOCYTE # 1.1 TH/MM3 (1.0-4.8); MEAN CELL VOLUME 99.8 FL (80.0-100.0); MEAN CORPUSCULAR HEMOGLOBIN 32.2 PG (27.0-34.0); MEAN CORPUSCULAR HGB CONC 32.3 % (32.0-36.0); MEAN PLATELET VOLUME 10.6 FL (7.0-11.0); MONO % 13.3 % (0.0-8.0); NEUT % 67.4 % (16.0-70.0); PLATELET COUNT 150 TH/MM3 (150-450); RED BLOOD COUNT 2.83 MIL/MM3 (4.50-5.90); RED CELL DISTRIBUTION WIDTH 14.3 % (11.6-17.2); WHITE BLOOD COUNT 7.2 TH/MM3 (4.0-11.0)
[2018-03-05 05:47] LABS: AST (GOT) 18 U/L (15-37); BICARBONATE 23.8 MEQ/L (21.0-32.0); BLOOD UREA NITROGEN 49 MG/DL (7-18); CALCIUM 7.8 MG/DL (8.5-10.1); CHLORIDE 112 MEQ/L (98-107); CREATININE 2.28 MG/DL (0.60-1.30); GLOMERULAR FILTRATION RATE 35 ML/MIN (>89); GLUCOSE,RANDOM 101 MG/DL (74-106); SODIUM (NA) 144 MEQ/L (136-145)
[2018-03-05 05:48] LABS: ALT (GPT) 7 U/L (12-78)
[2018-03-05 05:51] LABS: ALKALINE PHOSPHATASE 79 U/L (45-117); TOTAL BILIRUBIN ADULT 0.3 MG/DL (0.2-1.0); TOTAL PROTEIN 6.2 GM/DL (6.4-8.2)
[2018-03-05] MEDS: RIFAXIMIN 200 MG TAB PO SCH ×3 (06:00→23:11)
[2018-03-05] MEDS: CHLORHEXIDINE 0.12% (ORAL KIT) 15 ML CUP MT SCH ×2 (08:00→19:47)
[2018-03-05] MEDS: BUDESONIDE-FORMOTEROL 160/4.5 MCG INHALER INH SCH ×2 (09:00→21:00)
[2018-03-05] MEDS: SODIUM CHLORIDE 0.9% FLUSH 10 ML FLUSH IV FLUSH SCH ×2 (09:37→19:51)
[2018-03-05] MEDS: LACTULOSE SYRUP 20 GM/30 ML CUP PO SCH (09:38)
[2018-03-05] MEDS: DOCUSATE SODIUM 50 MG/SENNA 8.6 MG TAB PO SCH ×2 (09:38→19:47)
[2018-03-05] MEDS: FUROSEMIDE 40 MG/4 ML VIAL IV PUSH SCH ×2 (09:38→17:24)
[2018-03-05] MEDS: PANTOPRAZOLE SOD 40 MG DELAYED RELEASE TAB PO SCH (09:38)
[2018-03-05] MEDS: METOPROLOL TARTRATE 25 MG TAB PO SCH ×2 (09:38→19:47)
[2018-03-05] MEDS: HEPARIN SODIUM - SQ 10,000 UNITS/ML VIAL SQ SCH ×2 (09:39→19:48)
--- NOTE | 2018-03-05 09:49 | HHI.NPPN ---
Subjective Complaints: Shortness of Breath General Problems: Edema, Hypertension Renal Failure: Chronic, Acute History of Present Illness This is a 67-year-old male with a past medical history of hypertension, hyperlipidemia, chronic kidney disease, history of acute kidney injury, congestive heart failure, chronic obstructive pulmonary disease, history of lymphedema of the leg, morbid obesity, came to the hospital with generalized weakness. Nephrology was called to see the patient because of very high BUN and creatinine and high potassium. The patient has a history of chronic kidney disease and he has recurrent acute kidney injury. The patient now came with a creatinine of 1.9 and a potassium of 6.8. The patient previously has creatinine in the range of 1.4-1.5 most of the time, and he had acute kidney injury in April of last year where the creatinine went up to 3.8. He is not following with any retail grocer according to him on a regular basis. The patient is not a very good historian. Most of the history was taken from patient's chart and some from the patient himself. According to him, he was feeling weak and tired, and he has worsening shortness of breath and he came to the hospital. He denies taking any nonsteroid anti- inflammatory drugs. He denies taking any diuretics. He has this swelling in the legs and he has wound in both legs, for which, according to him, he is doing the dressing by himself. There is no documentation of any antibiotics for him. Additional Remarks Patient sedated and intubated. Creatinine has improved at 2.28 from 2.35. (Alana Petty) Review of Systems General General Remarks Unable to do ROS patient is intubated (Alana Petty) Objective Data Data Vital Signs Date Time Temp Pulse Resp B/P (MAP) Pulse Ox O2 Delivery O2 Flow Rate FiO2 03/05/18 08:36 92 50 03/05/18 06:43 20 03/05/18 06:00 80 03/05/18 04:33 92 50 03/05/18 04:00 98.4 90 20 128/69 (88) 91 154/66 (95) 03/05/18 04:00 81 03/05/18 04:00 90 134/63 (86) 157/74 (101) 4/6/18 04:00 60 03/05/18 02:20 79 136/66 03/05/18 02:00 76 03/05/18 00:00 97.8 90 20 128/64 (85) 91 142/62 (88) 03/05/18 00:00 75 03/05/18 00:00 60 03/05/18 00:00 90 134/63 (86) 157/74 (101) 03/04/18 23:41 93 50 03/04/18 22:00 77 03/04/18 22:00 79 138/68 03/04/18 22:00 87 03/04/18 20:20 93 50 03/04/18 20:00 98.3 90 21 124/61 (82) 94 152/73 (99) 03/04/18 20:00 90 134/63 (86) 157/74 (101) 03/04/18 20:00 101 03/04/18 20:00 60 03/04/18 18:00 93 03/04/18 17:00 93 7 128/59 (82) 93 143/62 (89) 03/04/18 16:04 95 50 03/04/18 16:00 60 03/04/18 16:00 90 134/63 (86) 157/74 (101) 03/04/18 16:00 90 03/04/18 16:00 97.8 90 21 124/61 (82) 94 152/73 (99) 03/04/18 15:49 85 141/69 03/04/18 15:04 92 144/69 03/04/18 15:00 92 20 124/58 (80) 95 150/72 (98) 03/04/18 14:01 92.7 86 24 128/65 (86) 99 103/78 (86) 03/04/18 14:00 89 03/04/18 13:00 95.5 87 14 130/60 (83) 94 140/67 (91) 03/04/18 12:00 60 03/04/18 12:00 95.5 85 16 128/58 (81) 94 134/64 (87) 03/04/18 12:00 85 128/58 (81) 134/64 (87) 03/04/18 12:00 85 03/04/18 11:00 95.5 88 8 130/61 (84) 94 133/68 (89) 03/04/18 10:31 95 50 03/04/18 10:00 94 03/04/18 10:00 95.5 94 18 129/61 (83) 97 125/70 (88) (Alana Petty) -: 03/05/18 0500 03/05/18 0500 Imaging Last Impressions Chest X-Ray 03/04/18 0600 Signed Impressions: Service Date/Time: February 03:30 - CONCLUSION: Satisfactory positioning of left subclavian line cannot be confirmed radiographically. See above. Stable cardiomegaly and bilateral airspace opacities. Armond Ybarra MD Renal Ultrasound 02/26/18 0000 Signed Impressions: Service Date/Time: Monday, February 26, 2018 14:30 - CONCLUSION: Stable exam; no evidence of hydronephrosis. Raf Mosqueda MD Tubes & Lines: Foster (Alana Petty) Physical Exam General Appearance: No Acute Distress, Obese Appearance Remarks intubated and sedated (Alana Petty) Pulmonary Resp Exam: Breath Sounds Equal, No Distress, Decreased Bases Resp Remarks intubated (Alana Petty) Cardiology CV Exam: Regular (Alana Petty) Gastrointestinal/Abdomen GI Exam: Soft, Non-Tender GI Remarks large (Alana Petty) Genitourinary Exam: Flank Non-Tender (Alana Petty) Integumentary Skin Exam: Clear, Warm (Alana Petty) Extremeties Extremities Exam: Moderate Edema, Pitting Edema, Dependent Edema (Alana Petty) Neurologic Neuro Exam: Sedated (Alana Petty) Assessment/Plan Discussed Condition With: Patient Problem List: (1) CHRISTAL (acute kidney injury) ICD Codes: N17.9 - Acute kidney failure, unspecified Plan: Acute Kidney injury possible related to diuresis or ATN CKD possibly related to HTN or renovascular disease. Creatinine has improved slightly today at 2.28 from 2.35 today Patient is sedated and intubated Potassium 4.5 Plan Continue Lasix BID Maintain indwelling catheter for accurate I+O Continue to follow the urine output and BMP Avoid Nephrotoxins. (2) Hyperkalemia ICD Codes: E87.5 - Hyperkalemia Status: Acute Plan: Resolved (3) UTI (urinary tract infection) ICD Codes: N39.0 - Urinary tract infection, site not specified Status: Acute Plan: On ceftriaxone (Alana Petty) Problem List: (1) CHRISTAL (acute kidney injury) ICD Codes: N17.9 - Acute kidney failure, unspecified Plan: Acute Kidney injury possible related to diuresis or ATN CKD possibly related to HTN or renovascular disease. Creatinine has improved slightly today at 2.28 from 2.35 today Patient is sedated and intubated Potassium 4.5 Plan Continue Lasix BID Maintain indwelling catheter for accurate I+O Continue to follow the urine output and BMP Avoid Nephrotoxins. Patient seen and examined, agree with above. Creatinine is almost same, continue Lasix. (2) Hyperkalemia ICD Codes: E87.5 - Hyperkalemia Status: Acute Plan: Resolved (3) UTI (urinary tract infection) ICD Codes: N39.0 - Urinary tract infection, site not specified Status: Acute Plan: On ceftriaxone (Mike Quesada MD) Problem Qualifiers (1) UTI (urinary tract infection): Qualified Codes: N39.0 - Urinary tract infection, site not specified Alana Petty Mar 05, 2018 09:49 Mike Quesada MD Mar 05, 2018 17:35
--- NOTE | 2018-03-05 14:16 | HHI.CCPN ---
Subjective Remarks/Hospital Course This is a 67-year-old male with a PMH of Morbid Obesity, Prostate CA, HTN, Hyperlipidemia, COPD, Gout, CHF (Echo 09/29/2017 w/ EF 50-55%) who presented to the ER w/ complaints of generalized weakness and bilateral lower extremity pain x1 day. States he ran out of his medications approx 3wks ago, has noticed worsening weakness, unable to pull himself out of bed today. Notes chronic lower extremity wounds for approx 1 year, now w/ worsening drainage. Denies fever or chills. On arrival, BP 148/71, HR 60, O2 sat 98% on 2L NC, Afebrile. WBC normal. K+ 6.8. Creatinine 1.93, previously one-point 03/03 and 09/30/17. Troponin negative. INR 1.1. UA positive UTI. CXR pulmonary venous congestion , early pulmonary edema. S/p Insulin, D50, Ca and Kayexalate in ER. Dr. Quesada consulted for CHRISTAL and Hyperkalemia. S/p Rocephin for UTI 03/01: Continued CO2 retention and respiratory acidosis incompatible with survival despite BiPAP. Brought emergently to CVICU where I met him on his arrival. CXR and exam reveal fluid overload and new RLL infiltrate. Intubated immediately, central line placed and CVP 27 mm Hg. Started on milrinone and lasix gtt infusion. 03/02 remains intubated heavily sedated for ventilator synchrony. Remains on milrinone at 0.375, amylase against fusion at 10 mg/h. CVP has improved to 15. UO 2L in 24 hours 03/03: Remains intubated sedated, remains on high vent requirement with PEEP of 10 FiO2 60% oxygen saturation hardly above 90. Remains on milrinone infusion and Lasix infusion. Urine output 2.6L in 24 hours 03/04: Remains intubated, on sedation hold patient is able to follow commands. Critically ill but stabilizing. FiO2 requirement of 60% but saturation is 97% will attempt wean. Initiate Tyson Trac monitoring wean milrinone as tolerated. Creatinine 2.3 urine output 2.5 L in 24 hours. ABG shows acidemia. One amp of bicarb, increase respiratory rate to 20 6: Remains on PC/AC -changed to PRVC. FiO2 reduced to 45%, from 50%. UO 3.3 L in 24 hours. Had brief episode of V. tach yesterday currently off milrinone. Creat slightly improved to 2.28. Objective Vital Signs Date Time Temp Pulse Resp B/P (MAP) Pulse Ox O2 Delivery O2 Flow Rate FiO2 03/05/18 14:02 75 03/05/18 12:00 98.7 1 141/75 (97) 95 157/72 (100) 03/05/18 12:00 60 03/02/18 16:00 Mechanical Ventilator 03/01/18 09:24 2.00 Intake and Output 03/05/18 03/05/18 03/06/18 08:00 16:00 00:00 Intake Total 200 ml Output Total 1600 ml Balance -1400 ml Result Diagram: 03/05/18 0500 03/05/18 0500 Objective Remarks GEN: Critically ill, morbidly obese -[place] male Head: AT/NC ENT/Neck: Supple, airway widely patent. Orotracheally intubated Lungs: Crackles and coarse sounds bilaterally. An entry diminished Heart: Mildly Tachycardic, distant S1-S2. Off on milrinone infusion Abdomen: Large soft, no guarding or tenderness. Extremities: Chronic brawny edema both lower legs, circumferential. Chronically infected skin cracks Neuro: Moves 4 limbs to stimulation. KALIE. Tracks with eyes. On lightening sedation follows commands A/P Problem List: (1) Acute hypoxemic respiratory failure ICD Code: J96.01 - Acute respiratory failure with hypoxia (2) Hypercapnic respiratory failure ICD Code: J96.92 - Respiratory failure, unspecified with hypercapnia (3) CHF (congestive heart failure) ICD Code: I50.9 - Heart failure, unspecified Status: Acute (4) Pneumonia ICD Code: J18.9 - Pneumonia, unspecified organism (5) Lgvuh-ef-afueagi kidney injury ICD Code: N17.9 - Acute kidney failure, unspecified; N18.9 - Chronic kidney disease, unspecified Status: Acute (6) Hyperkalemia ICD Code: E87.5 - Hyperkalemia Status: Acute (7) Morbid obesity ICD Code: E66.01 - Morbid (severe) obesity due to excess calories Status: Chronic (8) CHF (congestive heart failure) ICD Code: I50.9 - Heart failure, unspecified Assessment and Plan Plan: RESP: PC/AC vent mode, PEEP 10, Change to PRVC/AC TV 600, wean FiO2 to 45%, aim for pH 7.28 - 7.35 range. Sputum culture negative to date. Attempt SBT without extubation CV: Lasix 40 mg IV q12. Milrinone-off NEURO: Propofol sedation. Daily sedation vacation. Following commands on sedation hold GI: OG to LIS. Started diet with Nepro : Foster to CBD. Lasix 40 mg IV q12. Creatinine slowly improving ENDO: SSI for euglycemia prn. HEME: CBC daily ID: f/u Sputum culture negative to date, continue abx as ordered. PX: Heparin DVT px. Pepcid GI px. Overall impression: Patient is critically ill with respiratory failure requiring mechanical ventilation. Multiple comorbid conditions contribute to this predicament. Continue aggressive diuretic therapy. Milrinone weaned off Critical care 35 mins aside from procedures. Problem Qualifiers (1) Hypercapnic respiratory failure: Qualified Codes: J96.22 - Acute and chronic respiratory failure with hypercapnia (2) CHF (congestive heart failure): Qualified Codes: I50.23 - Acute on chronic systolic (congestive) heart failure (3) Pneumonia: Keshia Leahy MD Mar 05, 2018 14:16
[2018-03-05] MEDS: SODIUM CHLORIDE 0.9% FLUSH 10 ML FLUSH IV FLUSH PRN (17:25)
[2018-03-05] MEDS: cefTRIAXone INJ 1,000 MG in SODIUM CHLORIDE 0.9% INJ 100 ML IV SCH (19:47)
[2018-03-06] VITALS (18 sets, daily range): BP systolic 122–155; BP diastolic 63–81; PULSE 51–74; RESP 16; TEMP 97–98; O2SAT 94–97
[2018-03-06] MEDS: PROPOFOL 1000 MG/100 ML INJ 100 ML IV PRN ×7 (02:35→22:36)
[2018-03-06] MEDS: RIFAXIMIN 200 MG TAB PO SCH ×3 (05:00→20:16)
[2018-03-06 05:44] LABS: AUTOMATED NEUTROPHIL # 4.8 TH/MM3 (1.8-7.7); BASOPHIL % 0.7 % (0.0-2.0); EOSINOPHIL # 0.2 TH/MM3 (0-0.4); EOSINOPHIL % 2.8 % (0.0-4.0); HEMATOCRIT 28.6 % (39.0-51.0); HEMOGLOBIN 9.4 GM/DL (13.0-17.0); LYMPH % 16.7 % (9.0-44.0); LYMPHOCYTE # 1.2 TH/MM3 (1.0-4.8); MEAN CORPUSCULAR HEMOGLOBIN 32.3 PG (27.0-34.0); MEAN PLATELET VOLUME 10.8 FL (7.0-11.0); MONO % 14.4 % (0.0-8.0); MONOCYTE # 1.1 TH/MM3 (0-0.9); NEUT % 65.4 % (16.0-70.0); PLATELET COUNT 164 TH/MM3 (150-450); RED BLOOD COUNT 2.92 MIL/MM3 (4.50-5.90); RED CELL DISTRIBUTION WIDTH 14.4 % (11.6-17.2); WHITE BLOOD COUNT 7.4 TH/MM3 (4.0-11.0)
[2018-03-06 06:15] LABS: ALBUMIN 1.9 GM/DL (3.4-5.0); AST (GOT) 16 U/L (15-37); BICARBONATE 23.5 MEQ/L (21.0-32.0); BLOOD UREA NITROGEN 47 MG/DL (7-18); CALCIUM 7.9 MG/DL (8.5-10.1); CHLORIDE 112 MEQ/L (98-107); CREATININE 2.08 MG/DL (0.60-1.30); GLOMERULAR FILTRATION RATE 39 ML/MIN (>89); GLUCOSE,RANDOM 90 MG/DL (74-106); MAGNESIUM 2.3 MG/DL (1.5-2.5); SODIUM (NA) 144 MEQ/L (136-145)
[2018-03-06 06:16] LABS: ALT (GPT) 8 U/L (12-78)
[2018-03-06 06:19] LABS: ALKALINE PHOSPHATASE 84 U/L (45-117); RANDOM VANCOMYCIN 21.6 COMMENT; TOTAL BILIRUBIN ADULT 0.3 MG/DL (0.2-1.0)
--- NOTE | 2018-03-06 06:43 | RADRPT ---
EXAM DATE/TIME: 03/06/2018 04:39 [facility] COMPARISON: CHEST SINGLE AP, March 04, 2018, 3:30. INDICATIONS : Shortness of breath, possible pulmonary disease. MEDICAL HISTORY : Congestive heart failure. Hypertension Chronic obstructive pulmonary disease. SURGICAL HISTORY : None. ENCOUNTER: Subsequent ACUITY: 1 week PAIN SCORE: Non-responsive. LOCATION: Bilateral chest FINDINGS: Single AP view of the chest. Endotracheal tube, left subclavian central venous catheter, and nasogast demarcus tube remain in place. Persistent cardiac silhouette enlargement. Persistent bilateral lower lung zone predominant pulmonary parenchymal opacity left greater than right. CONCLUSION: No significant interval change. Mild bilateral pulmonary opacity unchanged. Lines and tubes unchanged. Sandip Sainz MD on March 06, 2018 at 6:41 Board Certified Radiologist. This report was verified electronically.
[2018-03-06] MEDS: FUROSEMIDE 40 MG/4 ML VIAL IV PUSH SCH ×3 (07:58→16:52)
[2018-03-06] MEDS: LACTULOSE SYRUP 20 GM/30 ML CUP PO SCH (07:58)
[2018-03-06] MEDS: HEPARIN SODIUM - SQ 10,000 UNITS/ML VIAL SQ SCH ×2 (07:58→20:16)
[2018-03-06] MEDS: PANTOPRAZOLE SOD 40 MG DELAYED RELEASE TAB PO SCH (07:59)
[2018-03-06] MEDS: DOCUSATE SODIUM 50 MG/SENNA 8.6 MG TAB PO SCH ×2 (08:00→20:14)
[2018-03-06] MEDS: METOPROLOL TARTRATE 25 MG TAB PO SCH ×2 (08:00→20:16)
[2018-03-06] MEDS: SODIUM CHLORIDE 0.9% FLUSH 10 ML FLUSH IV FLUSH SCH ×2 (08:01→20:17)
[2018-03-06] MEDS: BUDESONIDE-FORMOTEROL 160/4.5 MCG INHALER INH SCH ×2 (08:01→21:00)
[2018-03-06] MEDS: CHLORHEXIDINE 0.12% (ORAL KIT) 15 ML CUP MT SCH ×2 (08:01→20:00)
--- NOTE | 2018-03-06 08:32 | HHI.CCPN ---
Subjective Remarks/Hospital Course This is a 67-year-old male with a PMH of Morbid Obesity, Prostate CA, HTN, Hyperlipidemia, COPD, Gout, CHF (Echo 09/29/2017 w/ EF 50-55%) who presented to the ER w/ complaints of generalized weakness and bilateral lower extremity pain x1 day. States he ran out of his medications approx 3wks ago, has noticed worsening weakness, unable to pull himself out of bed today. Notes chronic lower extremity wounds for approx 1 year, now w/ worsening drainage. Denies fever or chills. On arrival, BP 148/71, HR 60, O2 sat 98% on 2L NC, Afebrile. WBC normal. K+ 6.8. Creatinine 1.93, previously one-point 03/03 and 09/30/17. Troponin negative. INR 1.1. UA positive UTI. CXR pulmonary venous congestion , early pulmonary edema. S/p Insulin, D50, Ca and Kayexalate in ER. Dr. Quesada consulted for CHRISTAL and Hyperkalemia. S/p Rocephin for UTI 03/01: Continued CO2 retention and respiratory acidosis incompatible with survival despite BiPAP. Brought emergently to CVICU where I met him on his arrival. CXR and exam reveal fluid overload and new RLL infiltrate. Intubated immediately, central line placed and CVP 27 mm Hg. Started on milrinone and lasix gtt infusion. 03/02 remains intubated heavily sedated for ventilator synchrony. Remains on milrinone at 0.375, amylase against fusion at 10 mg/h. CVP has improved to 15. UO 2L in 24 hours 03/03: Remains intubated sedated, remains on high vent requirement with PEEP of 10 FiO2 60% oxygen saturation hardly above 90. Remains on milrinone infusion and Lasix infusion. Urine output 2.6L in 24 hours 03/04: Remains intubated, on sedation hold patient is able to follow commands. Critically ill but stabilizing. FiO2 requirement of 60% but saturation is 97% will attempt wean. Initiate Tyson Trac monitoring wean milrinone as tolerated. Creatinine 2.3 urine output 2.5 L in 24 hours. ABG shows acidemia. One amp of bicarb, increase respiratory rate to 20 6: Remains on PC/AC -changed to PRVC. FiO2 reduced to 45%, from 50%. UO 3.3 L in 24 hours. Had brief episode of V. tach yesterday currently off milrinone. Creat slightly improved to 2.28. 03/06: remains intubated and critically ill. net -3L/24h. still very volume overloaded on exam. CVP 21. Objective Vital Signs Date Time Temp Pulse Resp B/P (MAP) Pulse Ox O2 Delivery O2 Flow Rate FiO2 03/06/18 06:00 67 03/06/18 04:31 96 45 03/06/18 04:00 97.9 16 122/64 (83) 136/67 (90) 03/02/18 16:00 Mechanical Ventilator Intake and Output 03/06/18 03/06/18 03/06/18 07:59 15:59 23:59 Intake Total 498.9 ml Output Total 2200 ml Balance -1701.1 ml Result Diagram: 03/06/18 0353 03/06/18 0353 Objective Remarks GEN: Critically ill, morbidly obese -[place]yp[place] male Head: AT/NC ENT/Neck: airway widely patent. Orotracheally intubated Lungs: Crackles and coarse sounds bilaterally. An entry diminished. PRVC, PEEP 8. fio2 45%. spo2 94% Heart: normal rate, regular rhythm. CI 2.5 by pulse contour analysis. cvp 21. Abdomen: morbidly obese, soft, nondistended, no guarding or tenderness. Extremities: anasarca. 3+ pitting edema bilateral upper and lower extremities. Chronically infected skin cracks Neuro: Moves 4 limbs to stimulation. KALIE. Tracks with eyes. On lightening sedation follows commands A/P Problem List: (1) Acute hypoxemic respiratory failure ICD Code: J96.01 - Acute respiratory failure with hypoxia (2) Hypercapnic respiratory failure ICD Code: J96.92 - Respiratory failure, unspecified with hypercapnia (3) CHF (congestive heart failure) ICD Code: I50.9 - Heart failure, unspecified Status: Acute (4) Pneumonia ICD Code: J18.9 - Pneumonia, unspecified organism (5) Dbefw-lx-gwnpvoa kidney injury ICD Code: N17.9 - Acute kidney failure, unspecified; N18.9 - Chronic kidney disease, unspecified Status: Acute (6) Hyperkalemia ICD Code: E87.5 - Hyperkalemia Status: Acute (7) Morbid obesity ICD Code: E66.01 - Morbid (severe) obesity due to excess calories Status: Chronic (8) CHF (congestive heart failure) ICD Code: I50.9 - Heart failure, unspecified Assessment and Plan Assessment: 67yM with Acute congestive heart failure exacerbation (preserved EF/ Diastolic dysfunction type) and associated acute hypoxic respiratory failure. volume overload persists. cardiogenic shock some improved, but remains unable to wean from mechanical ventilation due to volume overload. continue forced diuresis. Active Problems: Acute metabolic encephalopathy Acute hypoxic respiratory failure Acute CHF exacerbation: diastolic/preserved EF type Acute intravascular volume overload Cardiogenic shock- resolving Morbid Obesity Acute protein calorie malnutrition- moderate Acute kidney injury Hyperglycemia of critical illness Community Acquired pneumonia: present on admission Plan: RESP: PRVC. keep peep at 8. wean fio2. continue forced diuresis. vent bunde, nebs, hob elevated. Attempt SBT without extubation CV: increase lasix to 40mg iv q8h. goal net -2L/24h. continue to monitor pulse contour analysis and cvp. NEURO: Propofol sedation. Daily sedation vacation. Following commands on sedation hold GI: continue Nepro tube feeds. : continue Foster today given active diuresis. Cr continues to improve, likely secondary to cardiogenic shock and volume overload. ENDO: SSI for euglycemia prn. HEME: CBC daily ID: f/u Sputum culture negative to date, continue abx as ordered. PX: Heparin DVT px. Pepcid GI px. Overall impression: Patient is critically ill with respiratory failure requiring mechanical ventilation. Multiple comorbid conditions contribute to this predicament. Continue aggressive diuretic therapy. Critical care 31 mins aside from procedures. Problem Qualifiers (1) Hypercapnic respiratory failure: Qualified Codes: J96.22 - Acute and chronic respiratory failure with hypercapnia (2) CHF (congestive heart failure): Qualified Codes: I50.23 - Acute on chronic systolic (congestive) heart failure (3) Pneumonia: Costa Ryan MD Mar 06, 2018 08:32
--- NOTE | 2018-03-06 12:53 | HHI.NPPN ---
Subjective Complaints: Shortness of Breath General Problems: Edema, Hypertension Renal Failure: Chronic, Acute History of Present Illness This is a 67-year-old male with a past medical history of hypertension, hyperlipidemia, chronic kidney disease, history of acute kidney injury, congestive heart failure, chronic obstructive pulmonary disease, history of lymphedema of the leg, morbid obesity, came to the hospital with generalized weakness. Nephrology was called to see the patient because of very high BUN and creatinine and high potassium. The patient has a history of chronic kidney disease and he has recurrent acute kidney injury. The patient now came with a creatinine of 1.9 and a potassium of 6.8. The patient previously has creatinine in the range of 1.4-1.5 most of the time, and he had acute kidney injury in April of last year where the creatinine went up to 3.8. He is not following with any piano regulator inspector according to him on a regular basis. The patient is not a very good historian. Most of the history was taken from patient's chart and some from the patient himself. According to him, he was feeling weak and tired, and he has worsening shortness of breath and he came to the hospital. He denies taking any nonsteroid anti- inflammatory drugs. He denies taking any diuretics. He has this swelling in the legs and he has wound in both legs, for which, according to him, he is doing the dressing by himself. There is no documentation of any antibiotics for him. Additional Remarks Patient sedated and intubated. Review of Systems General General Remarks Unable to do ROS patient is intubated Objective Data Data Vital Signs Date Time Temp Pulse Resp B/P (MAP) Pulse Ox O2 Delivery O2 Flow Rate FiO2 03/06/18 11:51 95 40 03/06/18 09:06 96 40 03/06/18 08:00 97.6 62 16 133/63 (86) 96 146/66 (92) 03/06/18 08:00 40 03/06/18 08:00 62 133/63 (86) 146/66 (92) 03/06/18 08:00 62 03/06/18 06:00 67 03/06/18 04:31 96 45 03/06/18 04:00 97.9 60 16 122/64 (83) 95 136/67 (90) 03/06/18 04:00 60 03/06/18 04:00 74 122/64 (83) 136/67 (90) 03/06/18 04:00 45 03/06/18 02:00 64 03/06/18 01:07 95 45 03/06/18 00:00 45 03/06/18 00:00 97.9 71 16 125/67 (86) 95 148/68 (94) 03/06/18 00:00 74 125/67 (86) 148/68 (94) 03/06/18 00:00 71 03/05/18 22:00 67 03/05/18 21:20 93 45 03/05/18 20:00 74 141/71 (94) 150/75 (100) 03/05/18 20:00 45 03/05/18 20:00 98.2 74 16 141/71 (94) 97 150/75 (100) 03/05/18 20:00 74 03/05/18 18:06 74 03/05/18 16:21 72 133/67 (89) 143/67 (92) 03/05/18 16:17 72 03/05/18 16:17 45 03/05/18 16:14 97.8 72 23 143/67 (92) 95 133/67 (89) 03/05/18 15:50 94 45 03/05/18 14:02 75 -: 03/06/18 0353 03/06/18 0353 Tubes & Lines: Foster Physical Exam General Appearance: No Acute Distress, Obese Pulmonary Resp Exam: Breath Sounds Equal, No Distress, Decreased Bases Cardiology CV Exam: Regular Gastrointestinal/Abdomen GI Exam: Soft, Non-Tender Genitourinary Exam: Flank Non-Tender Integumentary Skin Exam: Clear, Warm Extremeties Extremities Exam: Moderate Edema, Pitting Edema, Dependent Edema Neurologic Neuro Exam: Sedated Assessment/Plan Discussed Condition With: Patient Problem List: (1) CHRISTAL (acute kidney injury) ICD Codes: N17.9 - Acute kidney failure, unspecified Plan: Acute Kidney injury possible related to diuresis or ATN CKD possibly related to HTN or renovascular disease. Creatinine has improved Patient is sedated and intubated Plan Continue Lasix 40 minute increased to every 8 hourly Maintain indwelling catheter for accurate I+O Continue to follow the urine output and BMP Avoid Nephrotoxins. Patient seen and examined, agree with above. Creatinine is improved continue Lasix. (2) Hyperkalemia ICD Codes: E87.5 - Hyperkalemia Status: Acute Plan: Resolved (3) UTI (urinary tract infection) ICD Codes: N39.0 - Urinary tract infection, site not specified Status: Acute Plan: On ceftriaxone Problem Qualifiers (1) UTI (urinary tract infection): Qualified Codes: N39.0 - Urinary tract infection, site not specified Eladio Goode MD Mar 06, 2018 12:53
[2018-03-06] MEDS: cefTRIAXone INJ 1,000 MG in SODIUM CHLORIDE 0.9% INJ 100 ML IV SCH (20:16)
[2018-03-06] MEDS: RESP: ALBUTEROL 2.5 MG/IPRATROPIUM 0.5 MG NEB (PRN) NEB (22:09)
[2018-03-07] VITALS (17 sets, daily range): BP systolic 118–136; BP diastolic 58–80; PULSE 47–80; RESP 11–27; TEMP 96.9–97.7; O2SAT 94–98
[2018-03-07] MEDS: FUROSEMIDE 40 MG/4 ML VIAL IV PUSH SCH ×3 (00:43→18:02)
[2018-03-07] MEDS: PROPOFOL 1000 MG/100 ML INJ 100 ML IV PRN ×4 (04:21→20:50)
[2018-03-07] MEDS: RIFAXIMIN 200 MG TAB PO SCH ×3 (04:21→21:27)
[2018-03-07 05:17] LABS: HEMOGLOBIN 10.4 GM/DL (13.0-17.0); MEAN CELL VOLUME 98.6 FL (80.0-100.0); MEAN CORPUSCULAR HGB CONC 32.4 % (32.0-36.0); PLATELET COUNT 166 TH/MM3 (150-450); RED BLOOD COUNT 3.25 MIL/MM3 (4.50-5.90); RED CELL DISTRIBUTION WIDTH 14.5 % (11.6-17.2); WHITE BLOOD COUNT 8.2 TH/MM3 (4.0-11.0)
[2018-03-07 05:37] LABS: BICARBONATE 24.9 MEQ/L (21.0-32.0); CALCIUM 8.2 MG/DL (8.5-10.1); CREATININE 1.93 MG/DL (0.60-1.30)
[2018-03-07 05:39] LABS: RANDOM VANCOMYCIN 17.8 COMMENT
[2018-03-07] MEDS: DOCUSATE SODIUM 50 MG/SENNA 8.6 MG TAB PO SCH ×2 (08:29→21:26)
[2018-03-07] MEDS: LACTULOSE SYRUP 20 GM/30 ML CUP PO SCH (08:29)
[2018-03-07] MEDS: PANTOPRAZOLE SOD 40 MG DELAYED RELEASE TAB PO SCH (08:29)
[2018-03-07] MEDS: METOPROLOL TARTRATE 25 MG TAB PO SCH ×2 (08:29→21:26)
[2018-03-07] MEDS: HEPARIN SODIUM - SQ 10,000 UNITS/ML VIAL SQ SCH ×3 (08:30→21:27)
[2018-03-07] MEDS ORDERED: ACETAMINOPHEN 650 MG/20.3 ML UDC PO PRN (08:30)
[2018-03-07] MEDS: CHLORHEXIDINE 0.12% (ORAL KIT) 15 ML CUP MT SCH ×2 (08:31→21:26)
[2018-03-07] MEDS: SODIUM CHLORIDE 0.9% FLUSH 10 ML FLUSH IV FLUSH SCH ×2 (08:32→21:26)
--- NOTE | 2018-03-07 08:53 | HHI.CCPN ---
Subjective Remarks/Hospital Course This is a 67-year-old male with a PMH of Morbid Obesity, Prostate CA, HTN, Hyperlipidemia, COPD, Gout, CHF (Echo 09/29/2017 w/ EF 50-55%) who presented to the ER w/ complaints of generalized weakness and bilateral lower extremity pain x1 day. States he ran out of his medications approx 3wks ago, has noticed worsening weakness, unable to pull himself out of bed today. Notes chronic lower extremity wounds for approx 1 year, now w/ worsening drainage. Denies fever or chills. On arrival, BP 148/71, HR 60, O2 sat 98% on 2L NC, Afebrile. WBC normal. K+ 6.8. Creatinine 1.93, previously one-point 03/03 and 09/30/17. Troponin negative. INR 1.1. UA positive UTI. CXR pulmonary venous congestion , early pulmonary edema. S/p Insulin, D50, Ca and Kayexalate in ER. Dr. Quesada consulted for CHRISTAL and Hyperkalemia. S/p Rocephin for UTI 03/01: Continued CO2 retention and respiratory acidosis incompatible with survival despite BiPAP. Brought emergently to CVICU where I met him on his arrival. CXR and exam reveal fluid overload and new RLL infiltrate. Intubated immediately, central line placed and CVP 27 mm Hg. Started on milrinone and lasix gtt infusion. 03/02 remains intubated heavily sedated for ventilator synchrony. Remains on milrinone at 0.375, amylase against fusion at 10 mg/h. CVP has improved to 15. UO 2L in 24 hours 03/03: Remains intubated sedated, remains on high vent requirement with PEEP of 10 FiO2 60% oxygen saturation hardly above 90. Remains on milrinone infusion and Lasix infusion. Urine output 2.6L in 24 hours 03/04: Remains intubated, on sedation hold patient is able to follow commands. Critically ill but stabilizing. FiO2 requirement of 60% but saturation is 97% will attempt wean. Initiate Tyson Trac monitoring wean milrinone as tolerated. Creatinine 2.3 urine output 2.5 L in 24 hours. ABG shows acidemia. One amp of bicarb, increase respiratory rate to 20 6: Remains on PC/AC -changed to PRVC. FiO2 reduced to 45%, from 50%. UO 3.3 L in 24 hours. Had brief episode of V. tach yesterday currently off milrinone. Creat slightly improved to 2.28. 03/06: remains intubated and critically ill. net -3L/24h. still very volume overloaded on exam. CVP 21. Subjective 03/07: Afebrile. Excellent diuresis overnight currently on furosemide 40 mg IV every 8 hours. Creatinine down to less than 2. Arousable on the ventilator and follows commands. PEEP still at 8. Objective Vital Signs Date Time Temp Pulse Resp B/P (MAP) Pulse Ox O2 Delivery O2 Flow Rate FiO2 03/07/18 06:00 51 03/07/18 05:54 95 40 03/07/18 04:00 118/63 (81) 119/62 (81) 03/07/18 04:00 97.0 16 Intake and Output 03/07/18 03/07/18 03/08/18 08:00 16:00 00:00 Intake Total 535 ml Output Total 2575 ml Balance -2040 ml Result Diagram: 03/07/18 0455 03/07/18 0455 Other Results Microbiology Date/Time Source Procedure Growth Status 03/01/18 17:45 Sputum Endotracheal Gram Stain - Final Complete 03/01/18 17:45 Sputum Endotracheal Sputum Culture - Final LIGHT GROWTH NORMAL RESPIRATORY EDISON Complete 02/25/18 16:33 Urine Clean Catch Urine Culture - Final 10-50,000 CFU/ML MIXED GRAM POSITIVE ... Complete Imaging Last Impressions Chest X-Ray 03/06/18 0600 Signed Impressions: Service Date/Time: Tuesday, March 06, 2018 04:39 - CONCLUSION: No significant interval change. Mild bilateral pulmonary opacity unchanged. Lines and tubes unchanged. Sandip Sainz MD Renal Ultrasound 02/26/18 0000 Signed Impressions: Service Date/Time: Monday, February 26, 2018 14:30 - CONCLUSION: Stable exam; no evidence of hydronephrosis. Raf Mosqueda MD Objective Remarks GEN: 67-year-old -[place]ese male with elevated BMI currently resting in bed in no acute distress Head: AT/NC ENT/Neck: airway widely patent. Orotracheally intubated Lungs: Diminished breath sounds throughout. No wheezing appreciated Heart: RRR. S1, S2 predose for without murmur Abdomen: morbidly obese, soft, nondistended, no guarding or tenderness. Extremities: anasarca. 3+ pitting edema bilateral upper and lower extremities. Chronic elephantiasis nostras Neuro: Moves 4 limbs to stimulation. Withdraws to pain. Follows simple commands on propofol drip at 15 mcg/kg/min. pupils are about 3 mm bilaterally and reactive Urinary Catheter: Yes Assessment to: Continue Foster insert reason: ICU Pt Getting Diuretics Vascular Central Line Catheter: Yes Assessment to: Continue Date of Insertion: Mar 01, 2018 Line: Central Venous Catheter Side: Left Location: Subclavian A/P Assessment and Plan NEURO/PSYCH: Acute toxic metabolic encephalopathy Patient is currently on propofol drip at 15 mcg/kg/min for sedation while intubated Goal of RASS -2 Daily sedation vacation As needed fentanyl 50 mg every 8 hours as needed breakthrough pain See GI for hyperammonia workup Acetaminophen 650 mg every 6 hours as needed fever RESP: Acute hypoxic respiratory failure Community-acquired pneumonia present on admission [facility] 16/600/12/07/39 Ventilator bundle Albuterol/ipratropium aerosols every 6 hours with albuterol aerosols every 2 hours as needed dyspnea Budesonide 0.5/2 1 inhalation twice daily Home medications include budesonide/formoterol 160/4.5 2 puffs twice daily and albuterol every 6 hours as needed Spontaneous breathing trials as clinically indicated CV: Acute diastolic heart failure Severe TR -very poor candidate for replacement Hypertension 2D echocardiogram 09/15 revealed ejection fraction 50-55%. Right atrial dilatation. LVH. Severe TR. Home medications include metoprolol tartrate 25 mg twice daily and amlodipine 10 mg p.o. daily Metoprolol for bradycardia As needed hydralazine/Nitropaste for hypertension 2D limited echocardiogram pending Continue diuresis with furosemide 40 mg IV 3 times daily Monitor for dysrhythmias. GI: Hypoalbuminemia Hyperammonia Gastroesophageal reflux disease continue Nepro tube feeds goal 45 cc an hour per nutrition's recommendations Lansoprazole for GI prophylaxis. On omeprazole 40 mg daily at home Docusate sodium/senna 1 tablet twice daily for bowel regimen Continue lactulose 30 cc daily and Xifaxan 40 mg every 8 hours recheck ammonia level in a.m. /9. Ammonia levels 25/3. Renal/: Acute kidney injury in setting of chronic kidney disease. Question ATN versus vascular congestion versus shock Followed by nephrology Currently on furosemide 40 mg IV 3 times daily continue Foster today given active diuresis. Cr continues to improve currently 1.93, Renal ultrasound revealed no hydronephrosis Home medications include bumetanide 1 mg daily and metolazone 5 mg daily ENDO: Hyperglycemia of critical illness SSI for euglycemia Novolin R with Accu-Cheks every 6 hours to maintain euglycemia/low regimen TSH 1.4 HEME: Normocytic anemia CBC daily. Monitor trends Does not meet transfusion threshold at this time ID: Community acquired pneumonia Currently on ceftriaxone 1 g IV daily since 02/25. Plan 14 days total Pertinent cultures 03/01 -sputum culture negative to date, 02/25 -urine culture -gram-positive edison likely contaminant continue abx as ordered. FEN: Hypernatremia Replace electrolytes as clinically indicated MSK: Elevated BMI of 62.8 Osteoarthritis/osteoporosis Weight loss encouraged Continue ergocalciferol 50,000 units every 7 days when indicated PT evaluate and treat Access -Left subclavian CVL placed 03/01/18 -Left radial arterial line placed 03/01/18 -discontinue today 03/07 Prophylaxis -GI -lansoprazole -DVT -SCD/heparin Level 2 follow-up Vicente Gibson MD Mar 07, 2018 08:53
[2018-03-07] MEDS: BUDESONIDE-FORMOTEROL 160/4.5 MCG INHALER INH SCH ×2 (09:00→20:50)
[2018-03-07] MEDS ORDERED: GLUCAGON 1 MG/ML VIAL OTHER PRN (09:15)
[2018-03-07] MEDS ORDERED: DEXTROSE 50% IN WATER 50 ML VIAL(D50) IV PUSH PRN (09:15)
[2018-03-07] MEDS: RESP: ALBUTEROL 2.5 MG/IPRATROPIUM 0.5 MG NEB (SCH) NEB ×3 (10:00→20:50)
[2018-03-07] MEDS ORDERED: NITROGLYCERIN 2% OINT 1 GM PACKET TOPICAL PRN (10:00)
[2018-03-07] MEDS ORDERED: hydrALAZINE HCL 20 MG/ML VIAL IV PUSH PRN (10:00)
[2018-03-07] MEDS: LANSOPRAZOLE SOLUTAB 30 MG TAB NG SCH (10:07)
[2018-03-07] MEDS: INSULIN NovoLIN REGULAR SUPPLEMENTAL SCALE SQ SCH ×4 (10:11→23:58)
[2018-03-07] MEDS: ARTIFICIAL TEARS OPTH SOLN 15 ML BTL EACH EYE SCH ×2 (13:01→22:00)
[2018-03-07] MEDS: ERGOCALCIFEROL (VIT D2) 50,000 UNIT CAP PO SCH (13:02)
--- NOTE | 2018-03-07 16:13 | HHI.NPPN ---
Subjective Complaints: Shortness of Breath General Problems: Edema, Hypertension Renal Failure: Chronic, Acute History of Present Illness This is a 67-year-old male with a past medical history of hypertension, hyperlipidemia, chronic kidney disease, history of acute kidney injury, congestive heart failure, chronic obstructive pulmonary disease, history of lymphedema of the leg, morbid obesity, came to the hospital with generalized weakness. Nephrology was called to see the patient because of very high BUN and creatinine and high potassium. The patient has a history of chronic kidney disease and he has recurrent acute kidney injury. The patient now came with a creatinine of 1.9 and a potassium of 6.8. The patient previously has creatinine in the range of 1.4-1.5 most of the time, and he had acute kidney injury in April of last year where the creatinine went up to 3.8. He is not following with any membership director according to him on a regular basis. The patient is not a very good historian. Most of the history was taken from patient's chart and some from the patient himself. According to him, he was feeling weak and tired, and he has worsening shortness of breath and he came to the hospital. He denies taking any nonsteroid anti- inflammatory drugs. He denies taking any diuretics. He has this swelling in the legs and he has wound in both legs, for which, according to him, he is doing the dressing by himself. There is no documentation of any antibiotics for him. Additional Remarks Patient sedated and intubated. Review of Systems General General Remarks Unable to do ROS patient is intubated Objective Data Data Vital Signs Date Time Temp Pulse Resp B/P (MAP) Pulse Ox O2 Delivery O2 Flow Rate FiO2 03/07/18 14:04 97 40 03/07/18 14:00 56 03/07/18 12:00 40 03/07/18 12:00 59 03/07/18 12:00 51 126/67 (86) 03/07/18 12:00 57 27 126/67 (86) 96 03/07/18 10:45 40 03/07/18 10:00 54 03/07/18 08:49 94 40 03/07/18 08:00 51 136/80 (98) 133/76 (95) 03/07/18 08:00 40 03/07/18 08:00 53 03/07/18 08:00 54 17 136/80 (98) 96 133/76 (95) 03/07/18 06:00 51 03/07/18 05:54 95 40 03/07/18 04:21 95 40 03/07/18 04:00 47 03/07/18 04:00 47 118/63 (81) 119/62 (81) 03/07/18 04:00 40 03/07/18 04:00 97.0 47 16 118/63 (81) 96 119/62 (81) 03/07/18 02:00 51 03/07/18 00:00 51 126/74 (91) 133/71 (91) 03/07/18 00:00 40 03/07/18 00:00 51 03/07/18 00:00 96.9 51 21 126/74 (91) 94 133/71 (91) 03/06/18 22:09 97 40 03/06/18 22:00 55 03/06/18 20:00 55 03/06/18 20:00 55 144/78 (100) 155/81 (105) 03/06/18 20:00 97.1 55 16 144/78 (100) 95 155/81 (105) 03/06/18 20:00 40 03/06/18 18:00 55 03/06/18 17:01 94 40 -: 03/07/18 0455 03/07/18 0455 Tubes & Lines: Foster Physical Exam General Appearance: No Acute Distress, Obese Pulmonary Resp Exam: Breath Sounds Equal, No Distress, Decreased Bases Cardiology CV Exam: Regular Gastrointestinal/Abdomen GI Exam: Soft, Non-Tender Genitourinary Exam: Flank Non-Tender Integumentary Skin Exam: Clear, Warm Extremeties Extremities Exam: Moderate Edema, Pitting Edema, Dependent Edema Neurologic Neuro Exam: Sedated Assessment/Plan Discussed Condition With: Patient Problem List: (1) CHRISTAL (acute kidney injury) ICD Codes: N17.9 - Acute kidney failure, unspecified Plan: Acute Kidney injury possible related to diuresis or ATN CKD possibly related to HTN or renovascular disease. Creatinine has improved Patient is sedated and intubated Plan Continue Lasix 40 mg every 8 hourly Urine output 5 L Maintain indwelling catheter for accurate I+O Continue to follow the urine output and BMP Avoid Nephrotoxins. Dr. Quesada to follow (2) Hyperkalemia ICD Codes: E87.5 - Hyperkalemia Status: Acute Plan: Resolved (3) UTI (urinary tract infection) ICD Codes: N39.0 - Urinary tract infection, site not specified Status: Acute Plan: On ceftriaxone Problem Qualifiers (1) UTI (urinary tract infection): Qualified Codes: N39.0 - Urinary tract infection, site not specified Eladio Goode MD Mar 07, 2018 16:13
[2018-03-07] MEDS ORDERED: VANCOMYCIN INJ 2,000 MG in SODIUM CHLORID 0.9% 500 ML INJ 500 ML IV ONE (18:00)
[2018-03-07] MEDS: RESP: BUDESONIDE 0.5 MG/2 ML NEB NEB SCH (20:50)
[2018-03-07] MEDS: cefTRIAXone INJ 1,000 MG in SODIUM CHLORIDE 0.9% INJ 100 ML IV SCH (21:25)
[2018-03-08] VITALS (32 sets, daily range): BP systolic 100–139; BP diastolic 55–69; PULSE 60–87; RESP 16–34; TEMP 97.6–100.7; O2SAT 88–98
[2018-03-08] MEDS: FUROSEMIDE 40 MG/4 ML VIAL IV PUSH SCH ×2 (00:03→08:29)
[2018-03-08] MEDS: PROPOFOL 1000 MG/100 ML INJ 100 ML IV PRN ×6 (00:31→22:40)
[2018-03-08] MEDS: RESP: ALBUTEROL 2.5 MG/IPRATROPIUM 0.5 MG NEB (SCH) NEB ×4 (04:26→21:30)
--- NOTE | 2018-03-08 05:18 | RADRPT ---
EXAM DATE/TIME: 03/08/2018 02:59 [facility] COMPARISON: CHEST SINGLE AP, March 06, 2018, 4:39. INDICATIONS : Shortness of breath,possible pulmonary disease. MEDICAL HISTORY : Congestive heart failure. Hypertension Chronic obstructive pulmonary disease. SURGICAL HISTORY : None. ENCOUNTER: Subsequent ACUITY: 1 week PAIN SCORE: Non-responsive. LOCATION: Bilateral chest FINDINGS: A single view of the chest demonstrates cardiomegaly and left pulmonary vascular congestion and bilat eral perihilar edema. Endotracheal tube, nasogastric tube and left subclavian central line are stable in position. Osseous structures are intact. CONCLUSION: Cardiomegaly with bilateral pulmonary edema with slight worsening on current study. Yang Cooper MD on March 08, 2018 at 5:15 Board Certified Radiologist. This report was verified electronically.
[2018-03-08 05:23] LABS: HEMATOCRIT 31.7 % (39.0-51.0); HEMOGLOBIN 10.2 GM/DL (13.0-17.0); MEAN CELL VOLUME 99.3 FL (80.0-100.0); MEAN CORPUSCULAR HEMOGLOBIN 31.8 PG (27.0-34.0); MEAN PLATELET VOLUME 10.5 FL (7.0-11.0); PLATELET COUNT 179 TH/MM3 (150-450); RED CELL DISTRIBUTION WIDTH 14.7 % (11.6-17.2); WHITE BLOOD COUNT 9.4 TH/MM3 (4.0-11.0)
[2018-03-08 05:31] LABS: ALBUMIN 1.9 GM/DL (3.4-5.0); BICARBONATE 27.8 MEQ/L (21.0-32.0); CALCIUM 8.2 MG/DL (8.5-10.1); CREATININE 1.97 MG/DL (0.60-1.30); DIRECT BILIRUBIN ADULT 0.1 MG/DL (0.0-0.2); MAGNESIUM 2.3 MG/DL (1.5-2.5); PHOSPHORUS 3.5 MG/DL (2.5-4.9)
[2018-03-08 05:33] LABS: INDIRECT BILIRUBIN 0.1 MG/DL (0.0-0.8); TOTAL BILIRUBIN ADULT 0.2 MG/DL (0.2-1.0); TOTAL PROTEIN 6.3 GM/DL (6.4-8.2)
[2018-03-08] MEDS: INSULIN NovoLIN REGULAR SUPPLEMENTAL SCALE SQ SCH ×3 (06:00→18:00)
[2018-03-08] MEDS: HEPARIN SODIUM - SQ 10,000 UNITS/ML VIAL SQ SCH ×3 (06:22→21:41)
[2018-03-08] MEDS: RIFAXIMIN 200 MG TAB PO SCH ×3 (06:22→21:41)
[2018-03-08] MEDS: ARTIFICIAL TEARS OPTH SOLN 15 ML BTL EACH EYE SCH ×2 (06:22→14:00)
[2018-03-08] MEDS: RESP: BUDESONIDE 0.5 MG/2 ML NEB NEB SCH ×2 (07:47→21:30)
[2018-03-08] MEDS: CHLORHEXIDINE 0.12% (ORAL KIT) 15 ML CUP MT SCH ×2 (08:28→21:42)
[2018-03-08] MEDS: SODIUM CHLORIDE 0.9% FLUSH 10 ML FLUSH IV FLUSH SCH ×2 (08:29→21:42)
[2018-03-08] MEDS: LACTULOSE SYRUP 20 GM/30 ML CUP PO SCH (08:29)
[2018-03-08] MEDS: LANSOPRAZOLE SOLUTAB 30 MG TAB NG SCH (08:29)
[2018-03-08] MEDS: DOCUSATE SODIUM 50 MG/SENNA 8.6 MG TAB PO SCH ×2 (08:30→21:41)
[2018-03-08] MEDS: METOPROLOL TARTRATE 25 MG TAB PO SCH ×2 (08:30→21:41)
[2018-03-08] MEDS: BUDESONIDE-FORMOTEROL 160/4.5 MCG INHALER INH SCH (08:39)
--- NOTE | 2018-03-08 10:35 | HHI.NPPN ---
Subjective Complaints: Shortness of Breath General Problems: Edema, Hypertension Renal Failure: Chronic, Acute History of Present Illness This is a 67-year-old male with a past medical history of hypertension, hyperlipidemia, chronic kidney disease, history of acute kidney injury, congestive heart failure, chronic obstructive pulmonary disease, history of lymphedema of the leg, morbid obesity, came to the hospital with generalized weakness. Nephrology was called to see the patient because of very high BUN and creatinine and high potassium. The patient has a history of chronic kidney disease and he has recurrent acute kidney injury. The patient now came with a creatinine of 1.9 and a potassium of 6.8. The patient previously has creatinine in the range of 1.4-1.5 most of the time, and he had acute kidney injury in April of last year where the creatinine went up to 3.8. He is not following with any information security director according to him on a regular basis. The patient is not a very good historian. Most of the history was taken from patient's chart and some from the patient himself. According to him, he was feeling weak and tired, and he has worsening shortness of breath and he came to the hospital. He denies taking any nonsteroid anti- inflammatory drugs. He denies taking any diuretics. He has this swelling in the legs and he has wound in both legs, for which, according to him, he is doing the dressing by himself. There is no documentation of any antibiotics for him. Additional Remarks Patient is intubated CPAP trial underway. Edema improving and continues to have good urinary output. (Alana Petty) Review of Systems General General Remarks Unable to do ROS patient is intubated (Alana Petty) Objective Data Data Vital Signs Date Time Temp Pulse Resp B/P (MAP) Pulse Ox O2 Delivery O2 Flow Rate FiO2 03/08/18 10:03 40 03/08/18 07:48 95 40 03/08/18 06:00 86 03/08/18 04:27 96 40 03/08/18 04:00 40 03/08/18 04:00 100.7 81 19 123/56 (78) 96 03/08/18 04:00 85 121/56 (77) 03/08/18 04:00 85 03/08/18 02:00 84 03/08/18 00:45 94 40 03/08/18 00:00 40 03/08/18 00:00 77 03/08/18 00:00 77 130/59 (82) 03/08/18 00:00 98.4 79 21 130/59 (82) 98 03/07/18 22:00 79 03/07/18 20:51 97 40 03/07/18 20:00 80 03/07/18 20:00 80 130/59 (82) 130/59 (82) 03/07/18 20:00 97.7 73 11 130/59 (82) 97 03/07/18 20:00 40 03/07/18 18:00 69 03/07/18 16:00 60 03/07/18 16:00 40 03/07/18 16:00 51 120/58 (78) 03/07/18 16:00 97.6 60 15 120/58 (78) 98 03/07/18 14:04 97 40 03/07/18 14:00 56 03/07/18 12:00 40 03/07/18 12:00 59 03/07/18 12:00 51 126/67 (86) 03/07/18 12:00 57 27 126/67 (86) 96 03/07/18 10:45 40 (Alana Petty) -: 03/08/18 0436 03/08/18 0436 Tubes & Lines: Foster (Alana Petty) Physical Exam General Appearance: No Acute Distress, Obese Appearance Remarks intubated and sedated (Alana Petty) Pulmonary Resp Exam: Breath Sounds Equal, No Distress, Decreased Bases Resp Remarks intubated (Alana Petty) Cardiology CV Exam: Regular (Alana Petty) Gastrointestinal/Abdomen GI Exam: Soft, Non-Tender GI Remarks large (Alana Petty) Genitourinary Exam: Flank Non-Tender (Alana Petty) Integumentary Skin Exam: Clear, Warm (Alana Petty) Extremeties Extremities Exam: Moderate Edema, Pitting Edema, Dependent Edema (Alana Petty) Neurologic Neuro Exam: Sedated (Alana Petty) Assessment/Plan Discussed Condition With: Patient Problem List: (1) CHRISTAL (acute kidney injury) ICD Codes: N17.9 - Acute kidney failure, unspecified Plan: Acute Kidney injury possible related to diuresis or ATN CKD possibly related to HTN or renovascular disease. Creatinine stable at 1.97 good urinary output at 3.1 liters. Patient is sedated and intubated Plan Continue Lasix 40 mg every 8 hourly Maintain indwelling catheter for accurate I+O Continue to follow the urine output and BMP Avoid Nephrotoxins. (2) Hyperkalemia ICD Codes: E87.5 - Hyperkalemia Status: Acute Plan: Resolved (3) UTI (urinary tract infection) ICD Codes: N39.0 - Urinary tract infection, site not specified Status: Acute Plan: On ceftriaxone (Alana Petty) Problem List: (1) CHRISTAL (acute kidney injury) ICD Codes: N17.9 - Acute kidney failure, unspecified Plan: Acute Kidney injury possible related to diuresis or ATN CKD possibly related to HTN or renovascular disease. Creatinine stable at 1.97 good urinary output at 3.1 liters. Patient is sedated and intubated Plan Continue Lasix 40 mg every 8 hourly Maintain indwelling catheter for accurate I+O Continue to follow the urine output and BMP Avoid Nephrotoxins. Patient seen and examine, agree with above. Creatinine is stable at 1.9, Continue Lasix. (2) Hyperkalemia ICD Codes: E87.5 - Hyperkalemia Status: Acute Plan: Resolved (3) UTI (urinary tract infection) ICD Codes: N39.0 - Urinary tract infection, site not specified Status: Acute Plan: On ceftriaxone (Mike Quesada MD) Problem Qualifiers (1) UTI (urinary tract infection): Qualified Codes: N39.0 - Urinary tract infection, site not specified Alana Petty Mar 08, 2018 10:35 Mike Quesada MD Mar 08, 2018 19:11
--- NOTE | 2018-03-08 10:45 | HHI.CCPN ---
Subjective Remarks/Hospital Course This is a 67-year-old male with a PMH of Morbid Obesity, Prostate CA, HTN, Hyperlipidemia, COPD, Gout, CHF (Echo 09/29/2017 w/ EF 50-55%) who presented to the ER w/ complaints of generalized weakness and bilateral lower extremity pain x1 day. States he ran out of his medications approx 3wks ago, has noticed worsening weakness, unable to pull himself out of bed today. Notes chronic lower extremity wounds for approx 1 year, now w/ worsening drainage. Denies fever or chills. On arrival, BP 148/71, HR 60, O2 sat 98% on 2L NC, Afebrile. WBC normal. K+ 6.8. Creatinine 1.93, previously one-point 03/03 and 09/30/17. Troponin negative. INR 1.1. UA positive UTI. CXR pulmonary venous congestion , early pulmonary edema. S/p Insulin, D50, Ca and Kayexalate in ER. Dr. Quesada consulted for CHRISTAL and Hyperkalemia. S/p Rocephin for UTI 03/01: Continued CO2 retention and respiratory acidosis incompatible with survival despite BiPAP. Brought emergently to CVICU where I met him on his arrival. CXR and exam reveal fluid overload and new RLL infiltrate. Intubated immediately, central line placed and CVP 27 mm Hg. Started on milrinone and lasix gtt infusion. 03/02 remains intubated heavily sedated for ventilator synchrony. Remains on milrinone at 0.375, amylase against fusion at 10 mg/h. CVP has improved to 15. UO 2L in 24 hours 03/03: Remains intubated sedated, remains on high vent requirement with PEEP of 10 FiO2 60% oxygen saturation hardly above 90. Remains on milrinone infusion and Lasix infusion. Urine output 2.6L in 24 hours 03/04: Remains intubated, on sedation hold patient is able to follow commands. Critically ill but stabilizing. FiO2 requirement of 60% but saturation is 97% will attempt wean. Initiate Tyson Trac monitoring wean milrinone as tolerated. Creatinine 2.3 urine output 2.5 L in 24 hours. ABG shows acidemia. One amp of bicarb, increase respiratory rate to 20 6: Remains on PC/AC -changed to PRVC. FiO2 reduced to 45%, from 50%. UO 3.3 L in 24 hours. Had brief episode of V. tach yesterday currently off milrinone. Creat slightly improved to 2.28. 03/06: remains intubated and critically ill. net -3L/24h. still very volume overloaded on exam. CVP 21. 4/8: Afebrile. Excellent diuresis overnight currently on furosemide 40 mg IV every 8 hours. Creatinine down to less than 2. Arousable on the ventilator and follows commands. PEEP still at 8. Subjective 03/08: T-max 100.7. One level 35 cm. Sodium is elevated 147. Will cut back on diuresis. Will attempt PSV trial today. Positive BM Objective Vital Signs Date Time Temp Pulse Resp B/P (MAP) Pulse Ox O2 Delivery O2 Flow Rate FiO2 03/08/18 10:03 40 03/08/18 07:48 95 03/08/18 06:00 86 03/08/18 04:00 100.7 19 123/56 (78) Intake and Output 03/08/18 03/08/18 03/09/18 08:00 16:00 00:00 Intake Total 816 ml Output Total 2222 ml Balance -1406 ml Result Diagram: 03/08/18 0436 03/08/18 0436 Other Results Microbiology Date/Time Source Procedure Growth Status 03/01/18 17:45 Sputum Endotracheal Gram Stain - Final Complete 03/01/18 17:45 Sputum Endotracheal Sputum Culture - Final LIGHT GROWTH NORMAL RESPIRATORY EDISON Complete 02/25/18 16:33 Urine Clean Catch Urine Culture - Final 10-50,000 CFU/ML MIXED GRAM POSITIVE ... Complete Imaging Last Impressions Chest X-Ray 03/08/18 0600 Signed Impressions: Service Date/Time: Thursday, March 08, 2018 02:59 - CONCLUSION: Cardiomegaly with bilateral pulmonary edema with slight worsening on current study. Yang Cooper MD Renal Ultrasound 02/26/18 0000 Signed Impressions: Service Date/Time: Monday, February 26, 2018 14:30 - CONCLUSION: Stable exam; no evidence of hydronephrosis. Raf Mosqueda MD Objective Remarks GEN: 67-year-old -Filipino male with elevated BMI currently resting in bed in no acute distress Head: AT/NC ENT/Neck: airway widely patent. Orotracheally intubated Lungs: Diminished breath sounds throughout. No wheezing appreciated Heart: RRR. S1, S2 predose for without murmur Abdomen: morbidly obese, soft, nondistended, no guarding or tenderness. Extremities: anasarca. 3+ pitting edema bilateral upper and lower extremities. Chronic elephantiasis nostras Neuro: Moves 4 limbs to stimulation. Withdraws to pain. Follows simple commands on propofol drip at 15 mcg/kg/min. pupils are about 3 mm bilaterally and reactive Urinary Catheter: Yes Assessment to: Continue Foster insert reason: ICU Pt Getting Diuretics Vascular Central Line Catheter: Yes Assessment to: Continue Date of Insertion: Mar 01, 2018 Line: Central Venous Catheter Side: Left Location: Subclavian A/P Assessment and Plan NEURO/PSYCH: Acute toxic metabolic encephalopathy Patient is currently on propofol drip at 15 mcg/kg/min for sedation while intubated Goal of RASS -2 Daily sedation vacation As needed fentanyl 50 mg every 8 hours as needed breakthrough pain See GI for hyperammonia workup Acetaminophen 650 mg every 6 hours as needed fever RESP: Acute hypoxic respiratory failure Community-acquired pneumonia present on admission [facility] 16/600/12/06/39 Ventilator bundle Albuterol/ipratropium aerosols every 6 hours with albuterol aerosols every 2 hours as needed dyspnea Budesonide 0.5/2 1 inhalation twice daily Home medications include budesonide/formoterol 160/4.5 2 puffs twice daily and albuterol every 6 hours as needed Spontaneous breathing trials as clinically indicated. CPAP today if indicated CV: Acute diastolic heart failure Severe TR -very poor candidate for replacement Hypertension 2D echocardiogram 09/15 revealed ejection fraction 50-55%. Right atrial dilatation. LVH. Severe TR. Home medications include metoprolol tartrate 25 mg twice daily and amlodipine 10 mg p.o. daily Metoprolol for bradycardia As needed hydralazine/Nitropaste for hypertension 2D limited echocardiogram pending Continue diuresis with furosemide 40 mg IV 3 times daily Monitor for dysrhythmias. GI: Hypoalbuminemia Hyperammonia Gastroesophageal reflux disease continue Nepro tube feeds goal 45 cc an hour per nutrition's recommendations Lansoprazole for GI prophylaxis. On omeprazole 40 mg daily at home Docusate sodium/senna 1 tablet twice daily for bowel regimen Continue lactulose 30 cc daily and Xifaxan 400 mg every 8 hours recheck ammonia level in a.m. 03/08. Ammonia levels currently 35 Renal/: Acute kidney injury in setting of chronic kidney disease. Question ATN versus vascular congestion versus shock Followed by nephrology Currently on furosemide 40 mg IV daily continue Foster today given active diuresis. Cr continues to improve currently 1.93, Renal ultrasound revealed no hydronephrosis Home medications include bumetanide 1 mg daily and metolazone 5 mg daily ENDO: Hyperglycemia of critical illness SSI for euglycemia Novolin R with Accu-Cheks every 6 hours to maintain euglycemia/low regimen TSH 1.4 HEME: Normocytic anemia CBC daily. Monitor trends Does not meet transfusion threshold at this time ID: Community acquired pneumonia Currently on ceftriaxone 1 g IV daily since 02/25. Plan 14 days total Pertinent cultures 03/01 -sputum culture negative to date, 02/25 -urine culture -gram-positive edison likely contaminant continue abx as ordered. FEN: Hypernatremia Replace electrolytes as clinically indicated MSK: Elevated BMI of 62.8 Osteoarthritis/osteoporosis Weight loss encouraged Continue ergocalciferol 50,000 units every 7 days when indicated PT evaluate and treat Access -Left subclavian CVL placed 03/01/18 -Left radial arterial line placed 03/01/18 -discontinue 03/07 Prophylaxis -GI -lansoprazole -DVT -SCD/heparin Level 2 follow-up Vicente Gibson MD Mar 08, 2018 10:45
[2018-03-08 20:04] LABS: BACTERIA, URINE FEW /hpf; BILIRUBIN, URINE NEG (NEG); BLOOD, URINE MOD (NEG); GLUCOSE,URINE NEG (NEG); KETONE, URINE NEG (NEG); MUCUS URINE FEW /lpf (OCC); NITRITE,URINE NEG (NEG); SQUAMOUS EPITHELIAL CELL URINE 1 /hpf (0-5); URINE COLOR LIGHT-BROWN (YELLW/STRAW); URINE LEUKOCYTE ESTERASE MOD (NEG); WHITE BLOOD CELL CLUMPS MOD
[2018-03-08] MEDS: cefTRIAXone INJ 1,000 MG in SODIUM CHLORIDE 0.9% INJ 100 ML IV SCH (21:42)
[2018-03-09] VITALS (35 sets, daily range): BP systolic 104–127; BP diastolic 57–64; PULSE 59–79; RESP 16–27; TEMP 97.6–98.8; O2SAT 93–99
[2018-03-09] MEDS: RESP: ALBUTEROL 2.5 MG/IPRATROPIUM 0.5 MG NEB (SCH) NEB ×4 (03:35→20:35)
[2018-03-09] MEDS: PROPOFOL 1000 MG/100 ML INJ 100 ML IV PRN ×5 (04:19→19:00)
[2018-03-09 05:24] LABS: HEMATOCRIT 33.6 % (39.0-51.0); HEMOGLOBIN 10.6 GM/DL (13.0-17.0); MEAN CELL VOLUME 100.3 FL (80.0-100.0); MEAN CORPUSCULAR HEMOGLOBIN 31.6 PG (27.0-34.0); MEAN CORPUSCULAR HGB CONC 31.5 % (32.0-36.0); MEAN PLATELET VOLUME 10.6 FL (7.0-11.0); PLATELET COUNT 171 TH/MM3 (150-450); RED BLOOD COUNT 3.35 MIL/MM3 (4.50-5.90); RED CELL DISTRIBUTION WIDTH 14.8 % (11.6-17.2); WHITE BLOOD COUNT 8.8 TH/MM3 (4.0-11.0)
[2018-03-09 05:42] LABS: BICARBONATE 25.6 MEQ/L (21.0-32.0); CALCIUM 8.3 MG/DL (8.5-10.1); CREATININE 1.85 MG/DL (0.60-1.30)
[2018-03-09] MEDS: INSULIN NovoLIN REGULAR SUPPLEMENTAL SCALE SQ SCH ×4 (06:00→18:00)
[2018-03-09] MEDS: HEPARIN SODIUM - SQ 10,000 UNITS/ML VIAL SQ SCH ×2 (06:36→14:30)
--- NOTE | 2018-03-09 07:48 | HHI.CCPN ---
Subjective Remarks/Hospital Course This is a 67-year-old male with a PMH of Morbid Obesity, Prostate CA, HTN, Hyperlipidemia, COPD, Gout, CHF (Echo 09/29/2017 w/ EF 50-55%) who presented to the ER w/ complaints of generalized weakness and bilateral lower extremity pain x1 day. States he ran out of his medications approx 3wks ago, has noticed worsening weakness, unable to pull himself out of bed today. Notes chronic lower extremity wounds for approx 1 year, now w/ worsening drainage. Denies fever or chills. On arrival, BP 148/71, HR 60, O2 sat 98% on 2L NC, Afebrile. WBC normal. K+ 6.8. Creatinine 1.93, previously one-point 03/03 and 09/30/17. Troponin negative. INR 1.1. UA positive UTI. CXR pulmonary venous congestion , early pulmonary edema. S/p Insulin, D50, Ca and Kayexalate in ER. Dr. Quesada consulted for CHRISTAL and Hyperkalemia. S/p Rocephin for UTI 03/01: Continued CO2 retention and respiratory acidosis incompatible with survival despite BiPAP. Brought emergently to CVICU where I met him on his arrival. CXR and exam reveal fluid overload and new RLL infiltrate. Intubated immediately, central line placed and CVP 27 mm Hg. Started on milrinone and lasix gtt infusion. 03/02 remains intubated heavily sedated for ventilator synchrony. Remains on milrinone at 0.375, amylase against fusion at 10 mg/h. CVP has improved to 15. UO 2L in 24 hours 03/03: Remains intubated sedated, remains on high vent requirement with PEEP of 10 FiO2 60% oxygen saturation hardly above 90. Remains on milrinone infusion and Lasix infusion. Urine output 2.6L in 24 hours 03/04: Remains intubated, on sedation hold patient is able to follow commands. Critically ill but stabilizing. FiO2 requirement of 60% but saturation is 97% will attempt wean. Initiate Tyson Trac monitoring wean milrinone as tolerated. Creatinine 2.3 urine output 2.5 L in 24 hours. ABG shows acidemia. One amp of bicarb, increase respiratory rate to 20 6: Remains on PC/AC -changed to PRVC. FiO2 reduced to 45%, from 50%. UO 3.3 L in 24 hours. Had brief episode of V. tach yesterday currently off milrinone. Creat slightly improved to 2.28. 03/06: remains intubated and critically ill. net -3L/24h. still very volume overloaded on exam. CVP 21. 4/8: Afebrile. Excellent diuresis overnight currently on furosemide 40 mg IV every 8 hours. Creatinine down to less than 2. Arousable on the ventilator and follows commands. PEEP still at 8. 4/9: T-max 100.7. One level 35 cm. Sodium is elevated 147. Will cut back on diuresis. Will attempt PSV trial today. Positive BM Subjective 03/09: Afebrile. Currently on propofol drip at 25 mcg/kg/min. Tolerated CPAP trial 1 hours yesterday. Decreasing PEEP from 7-6 today. Diuresis -2 L overnight. Positive BM. Objective Vital Signs Date Time Temp Pulse Resp B/P (MAP) Pulse Ox O2 Delivery O2 Flow Rate FiO2 03/09/18 07:34 93 40 03/09/18 06:00 64 03/09/18 04:00 98.8 16 127/58 (81) Intake and Output 03/09/18 03/09/18 03/10/18 08:00 16:00 00:00 Intake Total 861 ml Output Total 750 ml Balance 111 ml Result Diagram: 03/09/18 0345 03/09/18 0345 Other Results Microbiology Date/Time Source Procedure Growth Status 03/08/18 17:45 Blood Line Aerobic Blood Culture Pending Received 03/08/18 17:45 Blood Line Anaerobic Blood Culture Pending Received 03/08/18 18:30 Sputum Endotracheal Gram Stain Pending Received 03/08/18 18:30 Sputum Endotracheal Sputum Culture Pending Received 03/08/18 17:30 Urine Catheterized Urine Urine Culture Pending Received Imaging Last Impressions Chest X-Ray 03/08/18 0600 Signed Impressions: Service Date/Time: Thursday, March 08, 2018 02:59 - CONCLUSION: Cardiomegaly with bilateral pulmonary edema with slight worsening on current study. Yang Cooper MD Renal Ultrasound 02/26/18 0000 Signed Impressions: Service Date/Time: Monday, February 26, 2018 14:30 - CONCLUSION: Stable exam; no evidence of hydronephrosis. Raf Mosqueda MD Objective Remarks GEN: 67-year-old -[place] male with elevated BMI currently resting in bed in no acute distress Head: AT/NC ENT/Neck: airway widely patent. Orotracheally intubated Lungs: Diminished breath sounds throughout. No wheezing appreciated Heart: RRR. S1, S2 predose for without murmur Abdomen: morbidly obese, soft, nondistended, no guarding or tenderness. Extremities: anasarca. 3+ pitting edema bilateral upper and lower extremities. Chronic elephantiasis nostras Neuro: Moves 4 limbs to stimulation. Withdraws to pain. Follows simple commands on propofol drip at 15 mcg/kg/min. pupils are about 3 mm bilaterally and reactive Urinary Catheter: Yes Assessment to: Continue Foster insert reason: ICU Pt Getting Diuretics Vascular Central Line Catheter: Yes Assessment to: Continue Date of Insertion: Mar 01, 2018 Line: Central Venous Catheter Side: Left Location: Subclavian A/P Assessment and Plan NEURO/PSYCH: Acute toxic metabolic encephalopathy Patient is currently on propofol drip at 25 mcg/kg/min for sedation while intubated Goal of RASS -2 Daily sedation vacation As needed fentanyl 50 mg every 8 hours as needed breakthrough pain See GI for hyperammonemia workup Acetaminophen 650 mg every 6 hours as needed fever RESP: Acute hypoxic respiratory failure Community-acquired pneumonia present on admission [facility] 16/600/1.25/6/40 Ventilator bundle Albuterol/ipratropium aerosols every 6 hours with albuterol aerosols every 2 hours as needed dyspnea Budesonide 0.5/2 1 inhalation twice daily Home medications include budesonide/formoterol 160/4.5 2 puffs twice daily and albuterol every 6 hours as needed Spontaneous breathing trials as clinically indicated. CPAP today if indicated CV: Acute diastolic heart failure Severe TR -very poor candidate for replacement Hypertension 2D echocardiogram 09/15 revealed ejection fraction 50-55%. Right atrial dilatation. LVH. Severe TR. Home medications include metoprolol tartrate 25 mg twice daily and amlodipine 10 mg p.o. daily Metoprolol for bradycardia As needed hydralazine/Nitropaste for hypertension 2D limited echocardiogram pending Continue diuresis with furosemide 40 mg IV daily with metolazone 2.5 milligrams daily Monitor for dysrhythmias. GI: Hypoalbuminemia Hyperammonia Gastroesophageal reflux disease continue Nepro tube feeds goal 45 cc an hour per nutrition's recommendations Lansoprazole 30 mg daily for GI prophylaxis. On omeprazole 40 mg daily at home Docusate sodium/senna 1 tablet twice daily for bowel regimen Continue lactulose 30 cc daily and Xifaxan 400 mg every 8 hours. 03/08. Ammonia levels currently 35 Renal/: Acute kidney injury in setting of chronic kidney disease. Question ATN versus vascular congestion versus shock Followed by nephrology Currently on furosemide 40 mg IV daily and metolazone 2.5 mg daily continue Foster today given active diuresis. Cr continues to improve currently 1.85 Renal ultrasound revealed no hydronephrosis Home medications include bumetanide 1 mg daily and metolazone 5 mg daily ENDO: Hyperglycemia of critical illness SSI for euglycemia Novolin R with Accu-Cheks every 6 hours to maintain euglycemia/low regimen TSH 1.4 HEME: Macrocytic anemia CBC daily. Monitor trends Does not meet transfusion threshold at this time ID: Community acquired pneumonia Currently on ceftriaxone 1 g IV daily since 02/25. Plan 14 days total until 03/11 Pertinent cultures 03/08 -blood sputum and urine all no growth to date 03/01 -sputum culture negative to date, 02/25 -urine culture -gram-positive edison likely contaminant continue abx as ordered. Influenza a and B- FEN: Hypernatremia Replace electrolytes as clinically indicated Free water 200 cc every 6 hours MSK: Elevated BMI of 60.1 Osteoarthritis/osteoporosis Weight loss encouraged Continue ergocalciferol 50,000 units every 7 days when indicated PT evaluate and treat Access -Left subclavian CVL placed 03/01/18 -Left radial arterial line placed 03/01/18 -discontinue 03/07 Prophylaxis -GI -lansoprazole -DVT -SCD/heparin Level 2 follow-up Vicente Gibson MD Mar 09, 2018 07:48
[2018-03-09] MEDS: LACTULOSE SYRUP 20 GM/30 ML CUP PO SCH (08:37)
[2018-03-09] MEDS: LANSOPRAZOLE SOLUTAB 30 MG TAB NG SCH (08:37)
[2018-03-09] MEDS: METOPROLOL TARTRATE 25 MG TAB PO SCH (08:38)
[2018-03-09] MEDS: DOCUSATE SODIUM 50 MG/SENNA 8.6 MG TAB PO SCH (08:38)
[2018-03-09] MEDS: FUROSEMIDE 40 MG/4 ML VIAL IV PUSH SCH (08:40)
[2018-03-09] MEDS: METOLAZONE 2.5 MG TAB PO SCH (08:41)
[2018-03-09] MEDS: CHLORHEXIDINE 0.12% (ORAL KIT) 15 ML CUP MT SCH ×2 (08:57→20:00)
[2018-03-09] MEDS: RESP: BUDESONIDE 0.5 MG/2 ML NEB NEB SCH ×2 (09:09→20:35)
[2018-03-09] MEDS: FREE WATER G-TUBE SCH ×2 (12:00→18:00)
[2018-03-09] MEDS: RIFAXIMIN 200 MG TAB PO SCH (14:00)
--- NOTE | 2018-03-09 14:04 | ECHRPT ---
Indication: CHF CONCLUSIONS Normal left ventricular size. Wall thickness is measured at the upper limits of normal. The left ventricular systolic function is low normal with an estimated ejection fraction of 50%. N o definite regional wall motion abnormalities. There is mild tricuspid regurgitation. The estimated pulmonary arterial pressure is 50 mmHg. BP: 123 / 56 HR: 86 Rhythm: MEASUREMENTS (Male / Female) Normal Values Technical Quality:Fair 2D ECHO LV Diastolic Diameter PLAX 5.9 cm 4.2 - 5.9 / 3.9 - 5.3 cm LV Systolic Diameter PLAX 5.1 cm IVS Diastolic Thickness 1.1 cm 0.6 - 1.0 / 0.6 - 0.9 cm LVPW Diastolic Thickness 1.3 cm 0.6 - 1.0 / 0.6 - 0.9 cm LV Relative Wall Thickness 0.4 RV Internal Dim ED PLAX 4.8 cm LA Systolic Diameter LX 4.4 cm 3.0 - 4.0 / 2.7 - 3.8 cm LV Ejection Fraction MOD BP 44.4 % >= 55 % LV Cardiac Index MOD BP 2267.3 cm/minm LV Ejection Fraction MOD 4C 37.7 % LV Cardiac Index MOD 4C 1700.5 cm/minm LV Ejection Fraction 4C AL 37.6 % LV Cardiac Index 4C AL 1688.6 cm/minm LV Ejection Fraction MOD 2C 51.2 % LV Cardiac Index MOD 2C 2969.1 cm/minm LV Ejection Fraction 2C AL 51.0 % LV Cardiac Index 2C AL 2994.4 cm/minm DOPPLER TR Peak Velocity 317.0 cm/s TR Peak Gradient 40.2 mmHg Right Atrial Pressure 10.0 mmHg Pulmonary Artery Systolic Pressu 50.2 mmHg Right Ventricular Systolic Press 50.2 mmHg FINDINGS LEFT VENTRICLE Normal left ventricular size. Wall thickness is measured at the upper limits of normal. The left ventricular systolic function is low normal with an estimated ejection fraction of 50%. N o definite regional wall motion abnormalities. RIGHT VENTRICLE Normal right ventricular size and systolic function. LEFT ATRIUM The left atrial size is normal. RIGHT ATRIUM The right atrial size is normal. ATRIAL SEPTUM Normal atrial septal thickness without atrial level shunting by limited color doppler interrogation. AORTA The aortic root and proximal ascending aorta are normal in size on limited imaging. MITRAL VALVE Structurally normal mitral valve. No mitral valve stenosis or regurgitation. AORTIC VALVE Trileaflet aortic valve. No aortic valve stenosis or regurgitation. TRICUSPID VALVE Structurally normal tricuspid valve. There is mild tricuspid regurgitation. The estimated pulmonary arterial pressure is 50 mmHg. PULMONARY VALVE No pulmonary valve regurgitation or stenosis. VESSELS The inferior vena cava is normal in size. PERICARDIUM No pericardial effusion. Bro Woods MD (Electronically Signed) Final Date:09 March 2018 14:04
[2018-03-09] MEDS: SODIUM CHLORIDE 0.9% FLUSH 10 ML FLUSH IV FLUSH SCH (14:30)
--- NOTE | 2018-03-09 14:59 | HHI.NPPN ---
Subjective Complaints: Shortness of Breath General Problems: Edema, Hypertension Renal Failure: Chronic, Acute History of Present Illness This is a 67-year-old male with a past medical history of hypertension, hyperlipidemia, chronic kidney disease, history of acute kidney injury, congestive heart failure, chronic obstructive pulmonary disease, history of lymphedema of the leg, morbid obesity, came to the hospital with generalized weakness. Nephrology was called to see the patient because of very high BUN and creatinine and high potassium. The patient has a history of chronic kidney disease and he has recurrent acute kidney injury. The patient now came with a creatinine of 1.9 and a potassium of 6.8. The patient previously has creatinine in the range of 1.4-1.5 most of the time, and he had acute kidney injury in April of last year where the creatinine went up to 3.8. 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 The patient is not a very good historian. Most of the history was taken from patient's chart and some from the patient himself. According to him, he was feeling weak and tired, and he has worsening shortness of breath and he came to the hospital. He denies taking any nonsteroid anti- inflammatory drugs. He denies taking any diuretics. He has this swelling in the legs and he has wound in both legs, for which, according to him, he is doing the dressing by himself. There is no documentation of any antibiotics for him. Additional Remarks Patient is intubated attempting to open eyes to command. Edema improving and continues to have good urinary output. (Alana Petty) Review of Systems General General Remarks Unable to do ROS patient is intubated (Alana Petty) Objective Data Data Vital Signs Date Time Temp Pulse Resp B/P (MAP) Pulse Ox O2 Delivery O2 Flow Rate FiO2 03/09/18 14:00 72 03/09/18 13:25 Venturi Mask 96 40 03/09/18 13:13 99 40 03/09/18 12:01 97.8 62 16 117/57 (77) 94 03/09/18 12:00 62 03/09/18 12:00 40 03/09/18 12:00 62 117/57 (77) 03/09/18 12:00 62 16 93 03/09/18 11:01 65 16 115/62 (79) 97 03/09/18 11:00 63 16 97 03/09/18 10:57 97 40 03/09/18 10:01 65 27 122/62 (82) 96 03/09/18 10:00 63 27 96 03/09/18 10:00 63 03/09/18 09:17 40 03/09/18 09:17 95 40 03/09/18 09:01 60 16 122/64 (83) 95 03/09/18 09:00 59 16 95 03/09/18 08:00 97.6 59 16 111/61 (78) 94 Arterial Line 03/09/18 08:00 59 111/61 (78) 03/09/18 08:00 59 03/09/18 08:00 40 03/09/18 07:34 93 40 03/09/18 07:01 61 16 111/60 (77) 95 03/09/18 07:00 61 16 95 03/09/18 06:00 64 03/09/18 04:00 66 03/09/18 04:00 40 03/09/18 04:00 98.8 66 16 127/58 (81) 95 03/09/18 03:35 97 40 03/09/18 02:00 65 03/09/18 00:38 94 40 03/09/18 00:00 40 03/09/18 00:00 97.6 59 16 117/59 (78) 95 03/09/18 00:00 65 03/08/18 22:00 60 03/08/18 21:31 95 40 03/08/18 20:00 72 03/08/18 20:00 97.6 72 18 122/58 (79) 95 03/08/18 20:00 40 03/08/18 18:01 98.9 75 27 132/69 (90) 94 03/08/18 18:00 77 24 94 03/08/18 18:00 77 03/08/18 17:00 93 40 03/08/18 17:00 65 18 111/57 (75) 93 03/08/18 16:01 77 26 100/60 (73) 95 03/08/18 16:00 40 03/08/18 16:00 76 100/60 (73) 03/08/18 16:00 76 26 88 03/08/18 16:00 76 03/08/18 15:01 70 19 115/55 (75) 94 03/08/18 15:00 70 23 94 (Alana Petty) -: 03/09/18 0345 03/09/18 0345 Microbiology 03/08/18 Aerobic Blood Culture - Preliminary, Resulted NO GROWTH IN 1 DAY 03/08/18 Anaerobic Blood Culture - Preliminary, Resulted NO GROWTH IN 1 DAY 03/08/18 Aerobic Blood Culture - Preliminary, Resulted NO GROWTH IN 1 DAY 03/08/18 Anaerobic Blood Culture - Preliminary, Resulted NO GROWTH IN 1 DAY 03/08/18 Gram Stain - Final, Resulted 03/08/18 Sputum Culture - Preliminary, Resulted IMMATURE GROWTH - REINCUBATE 03/08/18 Influenza Types A,B Antigen (PASTOR) - Final, Complete NEGATIVE FOR FLU A AND B ANTIGEN.... 03/08/18 Urine Culture - Preliminary, Resulted NO GROWTH IN 24 HOURS. Imaging Last Impressions Chest X-Ray 03/08/18 0600 Signed Impressions: Service Date/Time: Thursday, March 08, 2018 02:59 - CONCLUSION: Cardiomegaly with bilateral pulmonary edema with slight worsening on current study. Yang Cooper MD Renal Ultrasound 02/26/18 0000 Signed Impressions: Service Date/Time: Monday, February 26, 2018 14:30 - CONCLUSION: Stable exam; no evidence of hydronephrosis. Raf Mosqueda MD Tubes & Lines: Foster (Alana Petty) Physical Exam General Appearance: No Acute Distress, Obese Appearance Remarks intubated and sedated (Alana Petty) Pulmonary Resp Exam: Breath Sounds Equal, No Distress, Decreased Bases Resp Remarks intubated (Alana Petty) Cardiology CV Exam: Regular (Alana Petty) Gastrointestinal/Abdomen GI Exam: Soft, Non-Tender GI Remarks large (Alana Petty) Genitourinary Exam: Flank Non-Tender (Alana Petty) Integumentary Skin Exam: Clear, Warm (Alana Petty) Extremeties Extremities Exam: Moderate Edema, Pitting Edema, Dependent Edema (Alana Petty) Neurologic Neuro Exam: Sedated (Alana Petty) Assessment/Plan Discussed Condition With: Patient Problem List: (1) CHRISTAL (acute kidney injury) ICD Codes: N17.9 - Acute kidney failure, unspecified Plan: Acute Kidney injury possible related to diuresis or ATN CKD possibly related to HTN or renovascular disease. Creatinine stable. Patient is sedated and intubated Plan Lasix changed to 40 mg daily with noted hypernatremia. Continue metolazone Hypernatremia continue free water as ordered Maintain indwelling catheter for accurate I+O and diuresis Continue to follow the urine output and BMP Avoid Nephrotoxins. (2) Hyperkalemia ICD Codes: E87.5 - Hyperkalemia Status: Acute Plan: Resolved (3) UTI (urinary tract infection) ICD Codes: N39.0 - Urinary tract infection, site not specified Status: Acute Plan: On ceftriaxone (Alana Petty) Problem List: (1) CHRISTAL (acute kidney injury) ICD Codes: N17.9 - Acute kidney failure, unspecified Plan: Acute Kidney injury possible related to diuresis or ATN CKD possibly related to HTN or renovascular disease. Creatinine stable. Patient is sedated and intubated Plan Lasix changed to 40 mg daily with noted hypernatremia. Continue metolazone Hypernatremia continue free water as ordered Maintain indwelling catheter for accurate I+O and diuresis Continue to follow the urine output and BMP Avoid Nephrotoxins. Patient seen and examined, agree with above. Continue diuretics. (2) Hyperkalemia ICD Codes: E87.5 - Hyperkalemia Status: Acute Plan: Resolved (3) UTI (urinary tract infection) ICD Codes: N39.0 - Urinary tract infection, site not specified Status: Acute Plan: On ceftriaxone (Mike Quesada MD) Problem Qualifiers (1) UTI (urinary tract infection): Qualified Codes: N39.0 - Urinary tract infection, site not specified Alana Petty Mar 09, 2018 14:59 Mike Quesada MD Mar 09, 2018 17:44
[2018-03-09] MEDS: ARTIFICIAL TEARS OPTH SOLN 15 ML BTL EACH EYE SCH ×2 (18:03→22:00)
[2018-03-10] VITALS (18 sets, daily range): BP systolic 100–137; BP diastolic 54–74; PULSE 76–91; RESP 16–37; TEMP 97.8–99; O2SAT 92–100
[2018-03-10] MEDS: METOPROLOL TARTRATE 25 MG TAB PO SCH ×3 (02:03→21:13)
[2018-03-10] MEDS: RIFAXIMIN 200 MG TAB PO SCH ×4 (02:03→21:12)
[2018-03-10] MEDS: cefTRIAXone INJ 1,000 MG in SODIUM CHLORIDE 0.9% INJ 100 ML IV SCH ×2 (02:04→21:12)
[2018-03-10] MEDS: HEPARIN SODIUM - SQ 10,000 UNITS/ML VIAL SQ SCH ×4 (02:04→21:14)
[2018-03-10] MEDS: DOCUSATE SODIUM 50 MG/SENNA 8.6 MG TAB PO SCH ×3 (02:04→21:12)
[2018-03-10] MEDS: SODIUM CHLORIDE 0.9% FLUSH 10 ML FLUSH IV FLUSH SCH ×3 (02:05→21:13)
[2018-03-10] MEDS: PROPOFOL 1000 MG/100 ML INJ 100 ML IV PRN ×6 (02:06→23:58)
[2018-03-10] MEDS: RESP: ALBUTEROL 2.5 MG/IPRATROPIUM 0.5 MG NEB (SCH) NEB ×4 (03:57→20:47)
[2018-03-10 05:08] LABS: HEMATOCRIT 32.3 % (39.0-51.0); HEMOGLOBIN 10.3 GM/DL (13.0-17.0); MEAN CELL VOLUME 100.1 FL (80.0-100.0); MEAN CORPUSCULAR HEMOGLOBIN 31.8 PG (27.0-34.0); MEAN CORPUSCULAR HGB CONC 31.7 % (32.0-36.0); MEAN PLATELET VOLUME 10.4 FL (7.0-11.0); PLATELET COUNT 182 TH/MM3 (150-450); RED BLOOD COUNT 3.23 MIL/MM3 (4.50-5.90); WHITE BLOOD COUNT 9.5 TH/MM3 (4.0-11.0)
--- NOTE | 2018-03-10 05:08 | RADRPT ---
EXAM DATE/TIME: 03/10/2018 03:22 [facility] COMPARISON: CHEST SINGLE AP, March 08, 2018, 2:59. INDICATIONS : Short of breath. MEDICAL HISTORY : Congestive heart failure. Hypertension Chronic obstructive pulmonary disease. SURGICAL HISTORY : None. ENCOUNTER: Subsequent ACUITY: 1 week PAIN SCORE: 0/10 LOCATION: Bilateral chest FINDINGS: A single view of the chest demonstrates cardiomegaly with slight interstitial prominence. Lungs are b rohit aerated. Osseous structures are intact. Endotracheal tube, nasogastric tube and left subclavia n central line stable in position. CONCLUSION: Cardiomegaly with slight interstitial prominence. Significant improvement from previous study. No pul monary edema on current study.. Yang Cooper MD on March 10, 2018 at 5:05 Board Certified Radiologist. This report was verified electronically.
[2018-03-10 05:37] LABS: BICARBONATE 28.4 MEQ/L (21.0-32.0); CALCIUM 8.4 MG/DL (8.5-10.1); CREATININE 1.82 MG/DL (0.60-1.30); MAGNESIUM 2.5 MG/DL (1.5-2.5)
[2018-03-10 05:38] LABS: PHOSPHORUS 3.7 MG/DL (2.5-4.9)
[2018-03-10 05:40] LABS: RANDOM VANCOMYCIN 19.4 COMMENT
[2018-03-10] MEDS: INSULIN NovoLIN REGULAR SUPPLEMENTAL SCALE SQ SCH ×4 (06:00→18:00)
[2018-03-10] MEDS: ARTIFICIAL TEARS OPTH SOLN 15 ML BTL EACH EYE SCH ×3 (06:00→21:14)
[2018-03-10] MEDS: FREE WATER G-TUBE SCH ×5 (06:00→23:59)
[2018-03-10] MEDS: LACTULOSE SYRUP 20 GM/30 ML CUP PO SCH (08:51)
[2018-03-10] MEDS: FUROSEMIDE 40 MG/4 ML VIAL IV PUSH SCH (08:51)
[2018-03-10] MEDS: CHLORHEXIDINE 0.12% (ORAL KIT) 15 ML CUP MT SCH ×2 (08:51→21:13)
[2018-03-10] MEDS: LANSOPRAZOLE SOLUTAB 30 MG TAB NG SCH (08:52)
[2018-03-10] MEDS: METOLAZONE 2.5 MG TAB PO SCH (08:52)
[2018-03-10] MEDS: RESP: BUDESONIDE 0.5 MG/2 ML NEB NEB SCH ×2 (09:02→20:47)
[2018-03-10] MEDS ORDERED: POTASSIUM CHLORIDE 20 MEQ PWD PACKET PO ONE (11:30)
--- NOTE | 2018-03-10 11:33 | HHI.CCPN ---
Subjective Remarks/Hospital Course This is a 67-year-old male with a PMH of Morbid Obesity, Prostate CA, HTN, Hyperlipidemia, COPD, Gout, CHF (Echo 09/29/2017 w/ EF 50-55%) who presented to the ER w/ complaints of generalized weakness and bilateral lower extremity pain x1 day. States he ran out of his medications approx 3wks ago, has noticed worsening weakness, unable to pull himself out of bed today. Notes chronic lower extremity wounds for approx 1 year, now w/ worsening drainage. Denies fever or chills. On arrival, BP 148/71, HR 60, O2 sat 98% on 2L NC, Afebrile. WBC normal. K+ 6.8. Creatinine 1.93, previously one-point 03/03 and 09/30/17. Troponin negative. INR 1.1. UA positive UTI. CXR pulmonary venous congestion , early pulmonary edema. S/p Insulin, D50, Ca and Kayexalate in ER. Dr. Quesada consulted for CHRISTAL and Hyperkalemia. S/p Rocephin for UTI 03/01: Continued CO2 retention and respiratory acidosis incompatible with survival despite BiPAP. Brought emergently to CVICU where I met him on his arrival. CXR and exam reveal fluid overload and new RLL infiltrate. Intubated immediately, central line placed and CVP 27 mm Hg. Started on milrinone and lasix gtt infusion. 03/02 remains intubated heavily sedated for ventilator synchrony. Remains on milrinone at 0.375, amylase against fusion at 10 mg/h. CVP has improved to 15. UO 2L in 24 hours 03/03: Remains intubated sedated, remains on high vent requirement with PEEP of 10 FiO2 60% oxygen saturation hardly above 90. Remains on milrinone infusion and Lasix infusion. Urine output 2.6L in 24 hours 03/04: Remains intubated, on sedation hold patient is able to follow commands. Critically ill but stabilizing. FiO2 requirement of 60% but saturation is 97% will attempt wean. Initiate Tyson Trac monitoring wean milrinone as tolerated. Creatinine 2.3 urine output 2.5 L in 24 hours. ABG shows acidemia. One amp of bicarb, increase respiratory rate to 20 6: Remains on PC/AC -changed to PRVC. FiO2 reduced to 45%, from 50%. UO 3.3 L in 24 hours. Had brief episode of V. tach yesterday currently off milrinone. Creat slightly improved to 2.28. 03/06: remains intubated and critically ill. net -3L/24h. still very volume overloaded on exam. CVP 21. 4/8: Afebrile. Excellent diuresis overnight currently on furosemide 40 mg IV every 8 hours. Creatinine down to less than 2. Arousable on the ventilator and follows commands. PEEP still at 8. 03/08: T-max 100.7. One level 35 cm. Sodium is elevated 147. Will cut back on diuresis. Will attempt PSV trial today. Positive BM 03/09: Afebrile. Currently on propofol drip at 25 mcg/kg/min. Tolerated CPAP trial 1 hours yesterday. Decreasing PEEP from 7-6 today. Diuresis -2 L overnight. Positive BM. Subjective 03/10: Afebrile. Remains on propofol drip at 25 mcg/kg/min. Tolerated 2 sessions of CPAP trials 2 yesterday. Decreasing PEEP to 6-5 today. Around 800 cc diuresis overnight. Objective Vital Signs Date Time Temp Pulse Resp B/P (MAP) Pulse Ox O2 Delivery O2 Flow Rate FiO2 03/10/18 10:00 81 03/10/18 08:00 98.6 37 135/65 (88) 92 03/10/18 08:00 40 03/09/18 13:25 Venturi Mask Intake and Output 03/10/18 03/10/18 03/11/18 08:00 16:00 00:00 Intake Total 895 ml Output Total 1450 ml Balance -555 ml Result Diagram: 03/10/18 0345 03/10/18 0345 Other Results Microbiology Date/Time Source Procedure Growth Status 03/08/18 17:45 Blood Line Aerobic Blood Culture - Preliminary NO GROWTH IN 2 DAYS Resulted 03/08/18 17:45 Blood Line Anaerobic Blood Culture - Preliminary NO GROWTH IN 2 DAYS Resulted 03/08/18 18:30 Sputum Endotracheal Gram Stain - Final Complete 03/08/18 18:30 Sputum Endotracheal Sputum Culture - Final LIGHT GROWTH NORMAL RESPIRATORY EDISON Complete 03/08/18 17:30 Urine Catheterized Urine Urine Culture - Final NO GROWTH IN 48 HOURS. Complete Imaging Last Impressions Chest X-Ray 03/10/18 0600 Signed Impressions: Service Date/Time: Saturday, March 10, 2018 03:22 - CONCLUSION: Cardiomegaly with slight interstitial prominence. Significant improvement from previous study. No pulmonary edema on current study.. Yang Cooper MD Renal Ultrasound 02/26/18 0000 Signed Impressions: Service Date/Time: Monday, February 26, 2018 14:30 - CONCLUSION: Stable exam; no evidence of hydronephrosis. Raf Mosqueda MD Objective Remarks GEN: 67-year-old -[place] male with elevated BMI currently resting in bed in no acute distress Head: AT/NC ENT/Neck: airway widely patent. Orotracheally intubated Lungs: Diminished breath sounds throughout. No wheezing appreciated Heart: RRR. S1, S2 predose for without murmur Abdomen: morbidly obese, soft, nondistended, no guarding or tenderness. Extremities: anasarca. 3+ pitting edema bilateral upper and lower extremities. Chronic elephantiasis nostras Neuro: Moves 4 limbs to stimulation. Withdraws to pain. Follows simple commands on propofol drip at 15 mcg/kg/min. pupils are about 3 mm bilaterally and reactive Urinary Catheter: Yes Assessment to: Continue Foster insert reason: ICU Pt Getting Diuretics Vascular Central Line Catheter: Yes Assessment to: Continue Date of Insertion: Mar 01, 2018 Line: Central Venous Catheter Side: Left Location: Subclavian A/P Assessment and Plan NEURO/PSYCH: Acute toxic metabolic encephalopathy Patient is currently on propofol drip at 25 mcg/kg/min for sedation while intubated Goal of RASS -2 Daily sedation vacation As needed fentanyl 50 mcg every 1 hour as needed breakthrough pain See GI for hyperammonemia workup Acetaminophen 650 mg every 6 hours as needed fever RESP: Acute hypoxic respiratory failure Community-acquired pneumonia present on admission PRVC 16/600/1.25/5/40 Ventilator bundle Albuterol/ipratropium aerosols every 6 hours with albuterol aerosols every 2 hours as needed dyspnea Budesonide 0.5/2 1 inhalation twice daily Home medications include budesonide/formoterol 160/4.5 2 puffs twice daily and albuterol every 6 hours as needed Spontaneous breathing trials as clinically indicated. CPAP today if indicated. Lasted 4 hours total yesterday 03/09 CV: Acute diastolic heart failure Severe TR -very poor candidate for replacement Hypertension 2D echocardiogram 09/15 revealed ejection fraction 50-55%. Right atrial dilatation. LVH. Severe TR. Home medications include metoprolol tartrate 25 mg twice daily and amlodipine 10 mg p.o. daily Metoprolol for tachycardia As needed hydralazine/Nitropaste for hypertension 2D limited echocardiogram Normal left ventricular size. Wall thickness is measured at the upper limits of normal. The left ventricular systolic function is low normal with an estimated ejection fraction of 50%. No definite regional wall motion abnormalities. There is mild tricuspid regurgitation. The estimated pulmonary arterial pressure is 50 mmHg. Continue diuresis with furosemide 40 mg IV daily with metolazone 2.5 milligrams daily Monitor for dysrhythmias. GI: Hypoalbuminemia Hyperammonia Gastroesophageal reflux disease continue Nepro tube feeds goal 45 cc an hour per nutrition's recommendations Lansoprazole 30 mg daily for GI prophylaxis. On omeprazole 40 mg daily at home Docusate sodium/senna 1 tablet twice daily for bowel regimen Continue lactulose 30 cc daily and Xifaxan 400 mg every 8 hours. 03/08. Ammonia levels currently 35 Renal/: Acute kidney injury in setting of chronic kidney disease. Question ATN versus vascular congestion versus shock Followed by nephrology Currently on furosemide 40 mg IV daily and metolazone 2.5 mg daily continue Foster today given active diuresis. Cr continues to improve currently 1.8 Renal ultrasound revealed no hydronephrosis Home medications include bumetanide 1 mg daily and metolazone 5 mg daily ENDO: Hyperglycemia of critical illness SSI for euglycemia Novolin R with Accu-Cheks every 6 hours to maintain euglycemia/low regimen TSH 1.4 HEME: Macrocytic anemia CBC daily. Monitor trends Does not meet transfusion threshold at this time ID: Community acquired pneumonia Currently on ceftriaxone 1 g IV daily since 02/25. Plan 14 days total until 03/11 Pertinent cultures 03/08 -blood sputum and urine all no growth to date 03/01 -sputum culture negative to date, 02/25 -urine culture -gram-positive edison likely contaminant continue abx as ordered. Influenza a and B- FEN: Hypernatremia Replace electrolytes as clinically indicated Free water 100 cc every 6 hours MSK: Elevated BMI of 59.3 Osteoarthritis/osteoporosis Weight loss encouraged Continue ergocalciferol 50,000 units every 7 days when indicated PT evaluate and treat Access -Left subclavian CVL placed 03/01/18 -Left radial arterial line placed 03/01/18 -discontinue 03/07 Prophylaxis -GI -lansoprazole -DVT -SCD/heparin Level 2 follow-up Vicente Gibson MD Mar 10, 2018 11:33
--- NOTE | 2018-03-10 16:56 | HHI.NPPN ---
Subjective Complaints: Shortness of Breath General Problems: Edema, Hypertension Renal Failure: Chronic, Acute History of Present Illness This is a 67-year-old male with a past medical history of hypertension, hyperlipidemia, chronic kidney disease, history of acute kidney injury, congestive heart failure, chronic obstructive pulmonary disease, history of lymphedema of the leg, morbid obesity, came to the hospital with generalized weakness. Nephrology was called to see the patient because of very high BUN and creatinine and high potassium. The patient has a history of chronic kidney disease and he has recurrent acute kidney injury. The patient now came with a creatinine of 1.9 and a potassium of 6.8. The patient previously has creatinine in the range of 1.4-1.5 most of the time, and he had acute kidney injury in April of last year where the creatinine went up to 3.8. 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 The patient is not a very good historian. Most of the history was taken from patient's chart and some from the patient himself. According to him, he was feeling weak and tired, and he has worsening shortness of breath and he came to the hospital. He denies taking any nonsteroid anti- inflammatory drugs. He denies taking any diuretics. He has this swelling in the legs and he has wound in both legs, for which, according to him, he is doing the dressing by himself. There is no documentation of any antibiotics for him. Additional Remarks Patient is intubated open eyes to command. Lower extremity edema improving. Creatinine is stable with good urinary output. (Alana Petty) Review of Systems General General Remarks Unable to do ROS patient is intubated (Alana Petty) Objective Data Data Vital Signs Date Time Temp Pulse Resp B/P (MAP) Pulse Ox O2 Delivery O2 Flow Rate FiO2 03/10/18 16:00 79 03/10/18 16:00 40 03/10/18 16:00 98.8 79 31 137/71 (93) 95 03/10/18 15:29 95 40 03/10/18 14:00 81 03/10/18 12:22 94 40 03/10/18 12:00 98.2 78 23 134/64 (87) 95 03/10/18 12:00 78 03/10/18 12:00 40 03/10/18 12:00 40 03/10/18 10:00 81 03/10/18 08:00 98.6 80 37 135/65 (88) 92 03/10/18 08:00 80 03/10/18 08:00 40 03/10/18 07:40 93 40 03/10/18 06:00 84 03/10/18 04:00 84 03/10/18 04:00 98.9 84 24 135/64 (87) 94 03/10/18 04:00 40 03/10/18 03:54 97 40 03/10/18 02:00 76 03/10/18 00:00 97.8 91 16 100/54 (69) 98 03/10/18 00:00 40 03/09/18 23:05 93 40 03/09/18 22:00 79 03/09/18 20:05 95 40 03/09/18 20:00 97.8 76 17 125/64 (84) 97 03/09/18 20:00 72 03/09/18 20:00 40 03/09/18 20:00 76 03/09/18 18:00 73 (Alana Petty) -: 03/10/18 0345 03/10/18 0345 Tubes & Lines: Foster (Alana Petty) Physical Exam General Appearance: No Acute Distress, Obese Appearance Remarks intubated and sedated (Alana Petty) Pulmonary Resp Exam: Breath Sounds Equal, No Distress, Decreased Bases Resp Remarks intubated (Alana Petty) Cardiology CV Exam: Regular (Alana Petty) Gastrointestinal/Abdomen GI Exam: Soft, Non-Tender GI Remarks large (Alana Petty) Genitourinary Exam: Flank Non-Tender (Alana Petty) Integumentary Skin Exam: Clear, Warm (Alana Petty) Extremeties Extremities Exam: Moderate Edema, Pitting Edema, Dependent Edema (Alana Petty) Neurologic Neuro Exam: Sedated (Alana Petty) Assessment/Plan Discussed Condition With: Patient Problem List: (1) CHRISTAL (acute kidney injury) ICD Codes: N17.9 - Acute kidney failure, unspecified Plan: Acute Kidney injury possible related to diuresis or ATN CKD possibly related to HTN or renovascular disease. Creatinine stable. Patient is sedated and intubated Plan Continue Lasix 40 mg daily Continue metolazone Continue free water as ordered hypernatremia Maintain indwelling catheter for accurate I+O and diuresis Continue to follow the urine output and BMP Avoid Nephrotoxins. (2) Hyperkalemia ICD Codes: E87.5 - Hyperkalemia Status: Acute Plan: Resolved (3) UTI (urinary tract infection) ICD Codes: N39.0 - Urinary tract infection, site not specified Status: Acute Plan: On ceftriaxone (Alana Petty) Problem List: (1) CHRISTAL (acute kidney injury) ICD Codes: N17.9 - Acute kidney failure, unspecified Plan: Acute Kidney injury possible related to diuresis or ATN CKD possibly related to HTN or renovascular disease. Creatinine stable. Patient is sedated and intubated Plan Continue Lasix 40 mg daily Continue metolazone Continue free water as ordered hypernatremia Maintain indwelling catheter for accurate I+O and diuresis Continue to follow the urine output and BMP Avoid Nephrotoxins. Patient seen and examined, agree with above. Sodium increase , on free water. Follow the urine out put and BMP. (2) Hyperkalemia ICD Codes: E87.5 - Hyperkalemia Status: Acute Plan: Resolved (3) UTI (urinary tract infection) ICD Codes: N39.0 - Urinary tract infection, site not specified Status: Acute Plan: On ceftriaxone (Mike Quesada MD) Problem Qualifiers (1) UTI (urinary tract infection): Qualified Codes: N39.0 - Urinary tract infection, site not specified Alana Petty Mar 10, 2018 16:56 Mike Quesada MD Mar 10, 2018 18:50
[2018-03-10] MEDS ORDERED: VANCOMYCIN INJ 2,000 MG in SODIUM CHLORID 0.9% 500 ML INJ 500 ML IV ONE (20:00)
[2018-03-11] VITALS (22 sets, daily range): BP systolic 138–155; BP diastolic 74–84; PULSE 71–84; RESP 16–31; TEMP 96.5–98.8; O2SAT 94–98
[2018-03-11] MEDS: RESP: ALBUTEROL 2.5 MG/IPRATROPIUM 0.5 MG NEB (SCH) NEB ×4 (03:15→20:15)
[2018-03-11] MEDS: PROPOFOL 1000 MG/100 ML INJ 100 ML IV PRN ×6 (03:47→23:34)
[2018-03-11 04:45] LABS: HEMATOCRIT 37.9 % (39.0-51.0); HEMOGLOBIN 12.1 GM/DL (13.0-17.0); MEAN CELL VOLUME 99.3 FL (80.0-100.0); MEAN CORPUSCULAR HEMOGLOBIN 31.8 PG (27.0-34.0); MEAN PLATELET VOLUME 10.6 FL (7.0-11.0); PLATELET COUNT 163 TH/MM3 (150-450); RED BLOOD COUNT 3.82 MIL/MM3 (4.50-5.90); RED CELL DISTRIBUTION WIDTH 14.7 % (11.6-17.2); WHITE BLOOD COUNT 9.8 TH/MM3 (4.0-11.0)
[2018-03-11 05:12] LABS: BICARBONATE 27.2 MEQ/L (21.0-32.0); CALCIUM 9.1 MG/DL (8.5-10.1); CREATININE 1.76 MG/DL (0.60-1.30)
[2018-03-11] MEDS: ARTIFICIAL TEARS OPTH SOLN 15 ML BTL EACH EYE SCH ×3 (05:28→23:35)
[2018-03-11] MEDS: FREE WATER G-TUBE SCH ×4 (05:28→23:35)
[2018-03-11] MEDS: HEPARIN SODIUM - SQ 10,000 UNITS/ML VIAL SQ SCH ×3 (05:29→20:55)
[2018-03-11] MEDS: RIFAXIMIN 200 MG TAB PO SCH ×3 (05:29→20:54)
[2018-03-11] MEDS: INSULIN NovoLIN REGULAR SUPPLEMENTAL SCALE SQ SCH ×4 (05:31→17:35)
[2018-03-11] MEDS: METOLAZONE 2.5 MG TAB PO SCH (09:00)
[2018-03-11] MEDS: RESP: BUDESONIDE 0.5 MG/2 ML NEB NEB SCH ×2 (09:03→20:15)
[2018-03-11] MEDS: CHLORHEXIDINE 0.12% (ORAL KIT) 15 ML CUP MT SCH ×2 (09:10→20:59)
[2018-03-11] MEDS: FUROSEMIDE 40 MG/4 ML VIAL IV PUSH SCH (09:10)
[2018-03-11] MEDS: LACTULOSE SYRUP 20 GM/30 ML CUP PO SCH (09:10)
[2018-03-11] MEDS: DOCUSATE SODIUM 50 MG/SENNA 8.6 MG TAB PO SCH ×2 (09:11→20:54)
[2018-03-11] MEDS: METOPROLOL TARTRATE 25 MG TAB PO SCH ×2 (09:11→20:54)
[2018-03-11] MEDS: SODIUM CHLORIDE 0.9% FLUSH 10 ML FLUSH IV FLUSH SCH ×2 (09:11→20:59)
[2018-03-11] MEDS: LANSOPRAZOLE SOLUTAB 30 MG TAB NG SCH (09:12)
--- NOTE | 2018-03-11 11:41 | HHI.CCPN ---
Subjective Remarks/Hospital Course This is a 67-year-old male with a PMH of Morbid Obesity, Prostate CA, HTN, Hyperlipidemia, COPD, Gout, CHF (Echo 09/29/2017 w/ EF 50-55%) who presented to the ER w/ complaints of generalized weakness and bilateral lower extremity pain x1 day. States he ran out of his medications approx 3wks ago, has noticed worsening weakness, unable to pull himself out of bed today. Notes chronic lower extremity wounds for approx 1 year, now w/ worsening drainage. Denies fever or chills. On arrival, BP 148/71, HR 60, O2 sat 98% on 2L NC, Afebrile. WBC normal. K+ 6.8. Creatinine 1.93, previously one-point 03/03 and 09/30/17. Troponin negative. INR 1.1. UA positive UTI. CXR pulmonary venous congestion , early pulmonary edema. S/p Insulin, D50, Ca and Kayexalate in ER. Dr. Quesada consulted for CHRISTAL and Hyperkalemia. S/p Rocephin for UTI 03/01: Continued CO2 retention and respiratory acidosis incompatible with survival despite BiPAP. Brought emergently to CVICU where I met him on his arrival. CXR and exam reveal fluid overload and new RLL infiltrate. Intubated immediately, central line placed and CVP 27 mm Hg. Started on milrinone and lasix gtt infusion. 03/02 remains intubated heavily sedated for ventilator synchrony. Remains on milrinone at 0.375, amylase against fusion at 10 mg/h. CVP has improved to 15. UO 2L in 24 hours 03/03: Remains intubated sedated, remains on high vent requirement with PEEP of 10 FiO2 60% oxygen saturation hardly above 90. Remains on milrinone infusion and Lasix infusion. Urine output 2.6L in 24 hours 03/04: Remains intubated, on sedation hold patient is able to follow commands. Critically ill but stabilizing. FiO2 requirement of 60% but saturation is 97% will attempt wean. Initiate Tyson Trac monitoring wean milrinone as tolerated. Creatinine 2.3 urine output 2.5 L in 24 hours. ABG shows acidemia. One amp of bicarb, increase respiratory rate to 20 6: Remains on PC/AC -changed to PRVC. FiO2 reduced to 45%, from 50%. UO 3.3 L in 24 hours. Had brief episode of V. tach yesterday currently off milrinone. Creat slightly improved to 2.28. 03/06: remains intubated and critically ill. net -3L/24h. still very volume overloaded on exam. CVP 21. 4/8: Afebrile. Excellent diuresis overnight currently on furosemide 40 mg IV every 8 hours. Creatinine down to less than 2. Arousable on the ventilator and follows commands. PEEP still at 8. 03/08: T-max 100.7. One level 35 cm. Sodium is elevated 147. Will cut back on diuresis. Will attempt PSV trial today. Positive BM 03/09: Afebrile. Currently on propofol drip at 25 mcg/kg/min. Tolerated CPAP trial 1 hours yesterday. Decreasing PEEP from 7-6 today. Diuresis -2 L overnight. Positive BM. 03/10: Afebrile. Remains on propofol drip at 25 mcg/kg/min. Tolerated 2 sessions of CPAP trials 2 yesterday. Decreasing PEEP to 6-5 today. Around 800 cc diuresis overnight. Subjective 03/11: Afebrile. Chest x-ray significantly improved. Tolerated CPAP trial 1.5 hours yesterday. Tolerating tube feeding. Positive BM. Objective Vital Signs Date Time Temp Pulse Resp B/P (MAP) Pulse Ox O2 Delivery O2 Flow Rate FiO2 03/11/18 10:40 96 40 03/11/18 10:00 71 03/11/18 08:00 96.5 27 155/82 (106) 03/09/18 13:25 Venturi Mask Intake and Output 03/11/18 03/11/18 03/12/18 08:00 16:00 00:00 Intake Total 820 ml 99 ml Output Total 1400 ml Balance -580 ml 99 ml Result Diagram: 03/11/18 0340 03/11/18 0340 Other Results Microbiology Date/Time Source Procedure Growth Status 03/08/18 17:45 Blood Line Aerobic Blood Culture - Preliminary NO GROWTH IN 3 DAYS Resulted 03/08/18 17:45 Blood Line Anaerobic Blood Culture - Preliminary NO GROWTH IN 3 DAYS Resulted 03/08/18 18:30 Sputum Endotracheal Gram Stain - Final Complete 03/08/18 18:30 Sputum Endotracheal Sputum Culture - Final LIGHT GROWTH NORMAL RESPIRATORY EDISON Complete 03/08/18 17:30 Urine Catheterized Urine Urine Culture - Final NO GROWTH IN 48 HOURS. Complete Imaging Last Impressions Chest X-Ray 03/10/18 0600 Signed Impressions: Service Date/Time: Saturday, March 10, 2018 03:22 - CONCLUSION: Cardiomegaly with slight interstitial prominence. Significant improvement from previous study. No pulmonary edema on current study.. Yang Cooper MD Renal Ultrasound 02/26/18 0000 Signed Impressions: Service Date/Time: Monday, February 26, 2018 14:30 - CONCLUSION: Stable exam; no evidence of hydronephrosis. Raf Mosqueda MD Objective Remarks GEN: 67-year-old -[place] male with elevated BMI currently resting in bed in no acute distress Head: AT/NC ENT/Neck: airway widely patent. Orotracheally intubated Lungs: Diminished breath sounds throughout. No wheezing appreciated Heart: RRR. S1, S2 predose for without murmur Abdomen: morbidly obese, soft, nondistended, no guarding or tenderness. Extremities: anasarca. 3+ pitting edema bilateral upper and lower extremities. Chronic elephantiasis nostras Neuro: Moves 4 limbs to stimulation. Withdraws to pain. Follows simple commands on propofol drip at 15 mcg/kg/min. pupils are about 3 mm bilaterally and reactive Urinary Catheter: Yes Assessment to: Continue Foster insert reason: ICU Pt Getting Diuretics Vascular Central Line Catheter: Yes Assessment to: Continue Date of Insertion: Mar 01, 2018 Line: Central Venous Catheter Side: Left Location: Subclavian A/P Assessment and Plan NEURO/PSYCH: Acute toxic metabolic encephalopathy Patient is currently on propofol drip at 25 mcg/kg/min for sedation while intubated Goal of RASS -2 Daily sedation vacation As needed fentanyl 50 mcg every 1 hour as needed breakthrough pain See GI for hyperammonemia workup Acetaminophen 650 mg every 6 hours as needed fever RESP: Acute hypoxic respiratory failure Community-acquired pneumonia present on admission PRVC 16/600/1.25/5/40 Ventilator bundle Albuterol/ipratropium aerosols every 6 hours with albuterol aerosols every 2 hours as needed dyspnea Budesonide 0.5/2 1 inhalation twice daily Home medications include budesonide/formoterol 160/4.5 2 puffs twice daily and albuterol every 6 hours as needed Spontaneous breathing trials as clinically indicated. CPAP today as tolerated. Lasted 1.5 hours total yesterday 03/10 CV: Acute diastolic heart failure Severe TR -very poor candidate for replacement Hypertension 2D echocardiogram 09/15 revealed ejection fraction 50-55%. Right atrial dilatation. LVH. Severe TR. Home medications include metoprolol tartrate 25 mg twice daily and amlodipine 10 mg p.o. daily Metoprolol for tachycardia As needed hydralazine/Nitropaste for hypertension 2D limited echocardiogram Normal left ventricular size. Wall thickness is measured at the upper limits of normal. The left ventricular systolic function is low normal with an estimated ejection fraction of 50%. No definite regional wall motion abnormalities. There is mild tricuspid regurgitation. The estimated pulmonary arterial pressure is 50 mmHg. Continue diuresis with furosemide 40 mg IV daily with metolazone 2.5 milligrams daily Monitor for dysrhythmias. GI: Hypoalbuminemia Hyperammonia Gastroesophageal reflux disease continue Nepro tube feeds goal 45 cc an hour per nutrition's recommendations Lansoprazole 30 mg daily for GI prophylaxis. On omeprazole 40 mg daily at home Docusate sodium/senna 1 tablet twice daily for bowel regimen Continue lactulose 30 cc daily and Xifaxan 400 mg every 8 hours. 03/08. Ammonia levels currently 35 Renal/: Acute kidney injury in setting of chronic kidney disease. Question ATN versus vascular congestion versus shock Followed by nephrology Currently on furosemide 40 mg IV daily and metolazone 2.5 mg daily continue Foster today given active diuresis. Cr continues to improve currently 1.8 Renal ultrasound revealed no hydronephrosis Home medications include bumetanide 1 mg daily and metolazone 5 mg daily ENDO: Hyperglycemia of critical illness SSI for euglycemia Novolin R with Accu-Cheks every 6 hours to maintain euglycemia/low regimen TSH 1.4 HEME: Macrocytic anemia CBC daily. Monitor trends Does not meet transfusion threshold at this time ID: Community acquired pneumonia Currently on ceftriaxone 1 g IV daily since 02/25. Plan 14 days total until 03/11 Pertinent cultures 03/08 -blood sputum and urine all no growth to date 03/01 -sputum culture negative to date, 02/25 -urine culture -gram-positive edison likely contaminant continue abx as ordered. Influenza a and B- FEN: Hypernatremia Replace electrolytes as clinically indicated Free water 100 cc every 6 hours MSK: Elevated BMI of 59.3 Osteoarthritis/osteoporosis Weight loss encouraged Continue ergocalciferol 50,000 units every 7 days when indicated PT evaluate and treat Access -Left subclavian CVL placed 03/01/18 -Left radial arterial line placed 03/01/18 -discontinue 03/07 Prophylaxis -GI -lansoprazole -DVT -SCD/heparin Level 2 follow-up Vicente Gibson MD Mar 11, 2018 11:41
--- NOTE | 2018-03-11 12:38 | HHI.NPPN ---
Subjective Complaints: Shortness of Breath General Problems: Edema, Hypertension Renal Failure: Chronic, Acute History of Present Illness This is a 67-year-old male with a past medical history of hypertension, hyperlipidemia, chronic kidney disease, history of acute kidney injury, congestive heart failure, chronic obstructive pulmonary disease, history of lymphedema of the leg, morbid obesity, came to the hospital with generalized weakness. Nephrology was called to see the patient because of very high BUN and creatinine and high potassium. The patient has a history of chronic kidney disease and he has recurrent acute kidney injury. The patient now came with a creatinine of 1.9 and a potassium of 6.8. The patient previously has creatinine in the range of 1.4-1.5 most of the time, and he had acute kidney injury in April of last year where the creatinine went up to 3.8. 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 The patient is not a very good historian. Most of the history was taken from patient's chart and some from the patient himself. According to him, he was feeling weak and tired, and he has worsening shortness of breath and he came to the hospital. He denies taking any nonsteroid anti- inflammatory drugs. He denies taking any diuretics. He has this swelling in the legs and he has wound in both legs, for which, according to him, he is doing the dressing by himself. There is no documentation of any antibiotics for him. Additional Remarks Patient is intubated and sedated. Edema improved. (Alana Petty) Review of Systems General General Remarks Unable to do ROS patient is intubated (Alana Petty) Objective Data Data 03/11/18 03/12/18 19:00 07:00 Intake Total 99 ml Balance 99 ml IV Total 99 ml Vital Signs Date Time Temp Pulse Resp B/P (MAP) Pulse Ox O2 Delivery O2 Flow Rate FiO2 03/11/18 12:00 40 03/11/18 12:00 97.7 72 29 147/84 (105) 96 03/11/18 12:00 72 03/11/18 10:40 96 40 03/11/18 10:00 71 03/11/18 09:49 95 40 03/11/18 09:49 40 03/11/18 08:00 73 03/11/18 08:00 96.5 73 27 155/82 (106) 94 03/11/18 08:00 40 03/11/18 07:39 94 40 03/11/18 06:00 77 03/11/18 04:25 97 40 03/11/18 04:00 78 03/11/18 04:00 40 03/11/18 04:00 98.7 78 16 149/74 (99) 96 03/11/18 02:00 79 03/11/18 01:20 97 40 03/11/18 00:00 40 03/11/18 00:00 82 03/11/18 00:00 98.7 82 18 138/74 (95) 95 03/10/18 22:20 100 40 03/10/18 22:00 85 03/10/18 20:00 40 03/10/18 20:00 99.0 82 21 134/74 (94) 97 03/10/18 20:00 82 03/10/18 19:15 96 40 03/10/18 18:00 83 03/10/18 16:00 79 03/10/18 16:00 40 03/10/18 16:00 98.8 79 31 137/71 (93) 95 03/10/18 15:29 95 40 03/10/18 14:00 81 (Alaan Petty) -: 03/11/18 0340 03/11/18 0340 Tubes & Lines: Foster (Alana Petty) Physical Exam General Appearance: No Acute Distress, Obese Appearance Remarks intubated and sedated (Alnaa Petty) Pulmonary Resp Exam: Breath Sounds Equal, No Distress, Decreased Bases Resp Remarks intubated (Alana Petty) Cardiology CV Exam: Regular (Alana Petty) Gastrointestinal/Abdomen GI Exam: Soft, Non-Tender GI Remarks large (Alana Petty) Genitourinary Exam: Flank Non-Tender (Alana Petty) Integumentary Skin Exam: Clear, Warm (Alana Petty) Extremeties Extremities Exam: Moderate Edema, Pitting Edema, Dependent Edema (Alana Petty) Neurologic Neuro Exam: Sedated (Alana Petty) Assessment/Plan Discussed Condition With: Patient Problem List: (1) CHRISTAL (acute kidney injury) ICD Codes: N17.9 - Acute kidney failure, unspecified Plan: Acute Kidney injury possible related to diuresis or ATN CKD possibly related to HTN or renovascular disease. Creatinine stable. Patient is sedated and intubated Plan Continue Lasix 40 mg daily Continue metolazone Continue free water as ordered hypernatremia Maintain indwelling catheter for accurate I+O and diuresis Continue to follow the urine output and BMP, creatinine improving. Avoid Nephrotoxins. (2) Hyperkalemia ICD Codes: E87.5 - Hyperkalemia Status: Acute Plan: Resolved (3) UTI (urinary tract infection) ICD Codes: N39.0 - Urinary tract infection, site not specified Status: Acute Plan: On ceftriaxone (Alana Petty) Problem List: (1) CHRISTAL (acute kidney injury) ICD Codes: N17.9 - Acute kidney failure, unspecified Plan: Acute Kidney injury possible related to diuresis or ATN CKD possibly related to HTN or renovascular disease. Creatinine stable. Patient is sedated and intubated Plan Continue Lasix 40 mg daily Continue metolazone Continue free water as ordered hypernatremia Maintain indwelling catheter for accurate I+O and diuresis Continue to follow the urine output and BMP, creatinine improving. Avoid Nephrotoxins. Patient seen and examined, agree with above. Continue diuretics, weaning as tolerated. (2) Hyperkalemia ICD Codes: E87.5 - Hyperkalemia Status: Acute Plan: Resolved (3) UTI (urinary tract infection) ICD Codes: N39.0 - Urinary tract infection, site not specified Status: Acute Plan: On ceftriaxone (Mike Quesada MD) Problem Qualifiers (1) UTI (urinary tract infection): Qualified Codes: N39.0 - Urinary tract infection, site not specified Alana Petty Mar 11, 2018 12:38 Mike Quesada MD Mar 11, 2018 18:12
[2018-03-12] VITALS (23 sets, daily range): BP systolic 115–158; BP diastolic 59–97; PULSE 51–84; RESP 16–35; TEMP 97.8–98.7; O2SAT 93–100
[2018-03-12] MEDS: PROPOFOL 1000 MG/100 ML INJ 100 ML IV PRN ×6 (03:38→20:31)
[2018-03-12] MEDS: RESP: ALBUTEROL 2.5 MG/IPRATROPIUM 0.5 MG NEB (SCH) NEB ×4 (03:49→21:42)
[2018-03-12 04:13] LABS: HEMATOCRIT 31.5 % (39.0-51.0); HEMOGLOBIN 10.2 GM/DL (13.0-17.0); MEAN CELL VOLUME 98.1 FL (80.0-100.0); MEAN CORPUSCULAR HEMOGLOBIN 31.9 PG (27.0-34.0); MEAN CORPUSCULAR HGB CONC 32.5 % (32.0-36.0); MEAN PLATELET VOLUME 10.4 FL (7.0-11.0); PLATELET COUNT 190 TH/MM3 (150-450); RED BLOOD COUNT 3.21 MIL/MM3 (4.50-5.90); RED CELL DISTRIBUTION WIDTH 14.3 % (11.6-17.2); WHITE BLOOD COUNT 9.7 TH/MM3 (4.0-11.0)
[2018-03-12 04:37] LABS: BICARBONATE 28.7 MEQ/L (21.0-32.0); CALCIUM 8.7 MG/DL (8.5-10.1); CREATININE 1.68 MG/DL (0.60-1.30); MAGNESIUM 2.5 MG/DL (1.5-2.5); PHOSPHORUS 3.8 MG/DL (2.5-4.9)
[2018-03-12] MEDS: FREE WATER G-TUBE SCH ×3 (05:47→18:00)
[2018-03-12] MEDS: INSULIN NovoLIN REGULAR SUPPLEMENTAL SCALE SQ SCH ×4 (05:48→18:00)
[2018-03-12] MEDS: RIFAXIMIN 200 MG TAB PO SCH ×3 (05:50→20:29)
[2018-03-12] MEDS: HEPARIN SODIUM - SQ 10,000 UNITS/ML VIAL SQ SCH ×3 (05:51→20:28)
[2018-03-12] MEDS: ARTIFICIAL TEARS OPTH SOLN 15 ML BTL EACH EYE SCH ×3 (06:00→22:00)
--- NOTE | 2018-03-12 06:21 | RADRPT ---
EXAM DATE/TIME: 03/12/2018 04:31 [facility] COMPARISON: CHEST SINGLE AP, March 10, 2018, 3:22. INDICATIONS : Short of breath MEDICAL HISTORY : Congestive heart failure. Hypertension Chronic obstructive pulmonary disease. SURGICAL HISTORY : None. ENCOUNTER: Subsequent ACUITY: 1 week PAIN SCORE: 0/10 LOCATION: Bilateral chest FINDINGS: Endotracheal tube, nasogastric tube remain in place. There is been removal of a central line. Aeratio n is grossly stable with mild vascular congestion and central parenchymal opacities which are grossly unchanged. Cardiac contours are stable. CONCLUSION: Interval Central line removal. Otherwise stable chest Armond Ybarra MD on March 12, 2018 at 6:17 Board Certified Radiologist. This report was verified electronically.
[2018-03-12] MEDS: METOLAZONE 2.5 MG TAB PO SCH (08:00)
[2018-03-12] MEDS: CHLORHEXIDINE 0.12% (ORAL KIT) 15 ML CUP MT SCH ×2 (08:00→20:29)
[2018-03-12] MEDS: RESP: BUDESONIDE 0.5 MG/2 ML NEB NEB SCH ×2 (08:34→21:42)
[2018-03-12] MEDS: LACTULOSE SYRUP 20 GM/30 ML CUP PO SCH (08:50)
[2018-03-12] MEDS: METOPROLOL TARTRATE 25 MG TAB PO SCH ×2 (08:50→20:31)
[2018-03-12] MEDS: DOCUSATE SODIUM 50 MG/SENNA 8.6 MG TAB PO SCH ×2 (08:50→20:28)
[2018-03-12] MEDS: FUROSEMIDE 40 MG/4 ML VIAL IV PUSH SCH (08:51)
[2018-03-12] MEDS: SODIUM CHLORIDE 0.9% FLUSH 10 ML FLUSH IV FLUSH SCH ×2 (08:52→20:30)
[2018-03-12] MEDS: LANSOPRAZOLE SOLUTAB 30 MG TAB NG SCH (09:09)
--- NOTE | 2018-03-12 13:23 | HHI.NPPN ---
Subjective General Problems: Edema, Hypertension Renal Failure: Chronic, Acute History of Present Illness This is a 67-year-old male with a past medical history of hypertension, hyperlipidemia, chronic kidney disease, history of acute kidney injury, congestive heart failure, chronic obstructive pulmonary disease, history of lymphedema of the leg, morbid obesity, came to the hospital with generalized weakness. Nephrology was called to see the patient because of very high BUN and creatinine and high potassium. The patient has a history of chronic kidney disease and he has recurrent acute kidney injury. The patient now came with a creatinine of 1.9 and a potassium of 6.8. The patient previously has creatinine in the range of 1.4-1.5 most of the time, and he had acute kidney injury in April of last year where the creatinine went up to 3.8. 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 The patient is not a very good historian. Most of the history was taken from patient's chart and some from the patient himself. According to him, he was feeling weak and tired, and he has worsening shortness of breath and he came to the hospital. He denies taking any nonsteroid anti- inflammatory drugs. He denies taking any diuretics. He has this swelling in the legs and he has wound in both legs, for which, according to him, he is doing the dressing by himself. There is no documentation of any antibiotics for him. Additional Remarks Patient is intubated and sedated. Edema improved. Condition unchanged. (Alana Petty) Review of Systems General General Remarks Unable to do ROS patient is intubated (Alana Petty) Objective Data Data Vital Signs Date Time Temp Pulse Resp B/P (MAP) Pulse Ox O2 Delivery O2 Flow Rate FiO2 03/12/18 12:00 40 03/12/18 12:00 98.2 71 16 148/69 (95) 97 03/12/18 12:00 72 03/12/18 11:19 99 40 03/12/18 10:00 72 03/12/18 08:00 97.9 79 23 158/97 100 03/12/18 08:00 40 03/12/18 08:00 72 03/12/18 07:20 40 03/12/18 07:20 99 40 03/12/18 06:00 75 03/12/18 04:13 97 40 03/12/18 04:00 40 03/12/18 04:00 72 03/12/18 04:00 72 35 154/82 (106) 94 03/12/18 03:01 77 27 124/60 (81) 94 03/12/18 02:00 81 31 142/76 (98) 97 03/12/18 02:00 72 03/12/18 01:00 81 22 140/80 (100) 96 03/12/18 00:45 96 40 03/12/18 00:00 98.7 84 26 140/79 (99) 96 03/12/18 00:00 40 03/12/18 00:00 84 03/11/18 23:00 84 25 152/76 (101) 96 03/11/18 22:00 79 23 142/82 (102) 96 03/11/18 22:00 79 03/11/18 21:00 80 20 144/74 (97) 96 03/11/18 20:12 98 40 03/11/18 20:10 98 40 03/11/18 20:00 40 03/11/18 20:00 98.8 77 31 143/76 (98) 98 03/11/18 20:00 77 03/11/18 18:00 73 03/11/18 16:00 73 03/11/18 16:00 40 03/11/18 16:00 97.7 73 30 154/74 (100) 96 03/11/18 15:42 97 40 03/11/18 14:00 71 (Alana Petty) -: 03/12/18 0359 03/12/18 0359 Tubes & Lines: Foster (Alana Petty) Physical Exam General Appearance: No Acute Distress, Obese Appearance Remarks intubated and sedated (Alana Petty) Pulmonary Resp Exam: Breath Sounds Equal, No Distress, Decreased Bases Resp Remarks intubated (Alana Petty) Cardiology CV Exam: Regular (Alana Petty) Gastrointestinal/Abdomen GI Exam: Soft, Non-Tender GI Remarks large (Alana Petty) Genitourinary Exam: Flank Non-Tender (Alana Petty) Integumentary Skin Exam: Clear, Warm (Alana Petty) Extremeties Extremities Exam: Moderate Edema, Pitting Edema, Dependent Edema (Alana Petty) Neurologic Neuro Exam: Sedated (Alana Petty) Assessment/Plan Discussed Condition With: Patient Problem List: (1) CHRISTAL (acute kidney injury) ICD Codes: N17.9 - Acute kidney failure, unspecified Plan: Acute Kidney injury possible related to diuresis or ATN CKD possibly related to HTN or renovascular disease. Creatinine remains stable. Patient is sedated and intubated. CPAP this AM Plan Continue Lasix 40 mg daily Continue metolazone Continue free water as ordered hypernatremia Maintain indwelling catheter for accurate I+O and diuresis Continue to follow the urine output and BMP, creatinine improving. Avoid Nephrotoxins. (2) Hyperkalemia ICD Codes: E87.5 - Hyperkalemia Status: Acute Plan: Resolved (3) UTI (urinary tract infection) ICD Codes: N39.0 - Urinary tract infection, site not specified Status: Acute Plan: resolved (Alana Petty) Problem List: (1) CHRISTAL (acute kidney injury) ICD Codes: N17.9 - Acute kidney failure, unspecified Plan: Acute Kidney injury possible related to diuresis or ATN CKD possibly related to HTN or renovascular disease. Creatinine remains stable. Patient is sedated and intubated. CPAP this AM Plan Continue Lasix 40 mg daily Continue metolazone Continue free water as ordered hypernatremia Maintain indwelling catheter for accurate I+O and diuresis Continue to follow the urine output and BMP, creatinine improving. Avoid Nephrotoxins. Patient seen and examined, agree with above. Weaning as tolerated. Continue diuretics, and follow the BMP. (2) Hyperkalemia ICD Codes: E87.5 - Hyperkalemia Status: Acute Plan: Resolved (3) UTI (urinary tract infection) ICD Codes: N39.0 - Urinary tract infection, site not specified Status: Acute Plan: resolved (Mike Quesada MD) Problem Qualifiers (1) UTI (urinary tract infection): Qualified Codes: N39.0 - Urinary tract infection, site not specified Alana Petty Mar 12, 2018 13:23 Mike Quesada MD Mar 15, 2018 18:28
--- NOTE | 2018-03-12 17:29 | HHI.CCPN ---
Subjective Remarks/Hospital Course This is a 67-year-old male with a PMH of Morbid Obesity, Prostate CA, HTN, Hyperlipidemia, COPD, Gout, CHF (Echo 09/29/2017 w/ EF 50-55%) who presented to the ER w/ complaints of generalized weakness and bilateral lower extremity pain x1 day. States he ran out of his medications approx 3wks ago, has noticed worsening weakness, unable to pull himself out of bed today. Notes chronic lower extremity wounds for approx 1 year, now w/ worsening drainage. Denies fever or chills. On arrival, BP 148/71, HR 60, O2 sat 98% on 2L NC, Afebrile. WBC normal. K+ 6.8. Creatinine 1.93, previously one-point 03/03 and 09/30/17. Troponin negative. INR 1.1. UA positive UTI. CXR pulmonary venous congestion , early pulmonary edema. S/p Insulin, D50, Ca and Kayexalate in ER. Dr. Quesada consulted for CHRISTAL and Hyperkalemia. S/p Rocephin for UTI 03/01: Continued CO2 retention and respiratory acidosis incompatible with survival despite BiPAP. Brought emergently to CVICU where I met him on his arrival. CXR and exam reveal fluid overload and new RLL infiltrate. Intubated immediately, central line placed and CVP 27 mm Hg. Started on milrinone and lasix gtt infusion. 03/02 remains intubated heavily sedated for ventilator synchrony. Remains on milrinone at 0.375, amylase against fusion at 10 mg/h. CVP has improved to 15. UO 2L in 24 hours 03/03: Remains intubated sedated, remains on high vent requirement with PEEP of 10 FiO2 60% oxygen saturation hardly above 90. Remains on milrinone infusion and Lasix infusion. Urine output 2.6L in 24 hours 03/04: Remains intubated, on sedation hold patient is able to follow commands. Critically ill but stabilizing. FiO2 requirement of 60% but saturation is 97% will attempt wean. Initiate Tyson Trac monitoring wean milrinone as tolerated. Creatinine 2.3 urine output 2.5 L in 24 hours. ABG shows acidemia. One amp of bicarb, increase respiratory rate to 20 6: Remains on PC/AC -changed to PRVC. FiO2 reduced to 45%, from 50%. UO 3.3 L in 24 hours. Had brief episode of V. tach yesterday currently off milrinone. Creat slightly improved to 2.28. 03/06: remains intubated and critically ill. net -3L/24h. still very volume overloaded on exam. CVP 21. 4/8: Afebrile. Excellent diuresis overnight currently on furosemide 40 mg IV every 8 hours. Creatinine down to less than 2. Arousable on the ventilator and follows commands. PEEP still at 8. 03/08: T-max 100.7. One level 35 cm. Sodium is elevated 147. Will cut back on diuresis. Will attempt PSV trial today. Positive BM 03/09: Afebrile. Currently on propofol drip at 25 mcg/kg/min. Tolerated CPAP trial 1 hours yesterday. Decreasing PEEP from 7-6 today. Diuresis -2 L overnight. Positive BM. 03/10: Afebrile. Remains on propofol drip at 25 mcg/kg/min. Tolerated 2 sessions of CPAP trials 2 yesterday. Decreasing PEEP to 6-5 today. Around 800 cc diuresis overnight. 03/11: Afebrile. Chest x-ray significantly improved. Tolerated CPAP trial 1.5 hours yesterday. Tolerating tube feeding. Positive BM. Subjective 03/12: Afebrile. Listed on CPAP trial from 07 30-4000. We will repeat later on today. Excellent diuresis continues. Chest x-ray essentially cleared. Positive BM. C. difficile -03/09. Objective Vital Signs Date Time Temp Pulse Resp B/P (MAP) Pulse Ox O2 Delivery O2 Flow Rate FiO2 03/12/18 15:53 96 40 03/12/18 14:00 69 03/12/18 12:00 98.2 16 148/69 (95) 03/09/18 13:25 Venturi Mask Intake and Output 03/12/18 03/12/18 03/13/18 08:00 16:00 00:00 Intake Total 1312 ml Output Total 4000 ml Balance -2688 ml Result Diagram: 03/12/18 0359 03/12/18 0359 Other Results Microbiology Date/Time Source Procedure Growth Status 03/08/18 17:45 Blood Line Aerobic Blood Culture - Preliminary NO GROWTH IN 4 DAYS Resulted 03/08/18 17:45 Blood Line Anaerobic Blood Culture - Preliminary NO GROWTH IN 4 DAYS Resulted 03/08/18 18:30 Sputum Endotracheal Gram Stain - Final Complete 03/08/18 18:30 Sputum Endotracheal Sputum Culture - Final LIGHT GROWTH NORMAL RESPIRATORY EDISON Complete 03/08/18 17:30 Urine Catheterized Urine Urine Culture - Final NO GROWTH IN 48 HOURS. Complete Imaging Last Impressions Chest X-Ray 03/12/18 0600 Signed Impressions: Service Date/Time: Monday, March 12, 2018 04:31 - CONCLUSION: Interval Central line removal. Otherwise stable chest Armond Ybarra MD Renal Ultrasound 02/26/18 0000 Signed Impressions: Service Date/Time: Monday, February 26, 2018 14:30 - CONCLUSION: Stable exam; no evidence of hydronephrosis. Raf Mosqueda MD Objective Remarks GEN: 67-year-old -[place] male with elevated BMI currently resting in bed in no acute distress Head: AT/NC ENT/Neck: airway widely patent. Orotracheally intubated Lungs: Diminished breath sounds throughout. No wheezing appreciated Heart: RRR. S1, S2 predose for without murmur Abdomen: morbidly obese, soft, nondistended, no guarding or tenderness. Extremities: anasarca. 3+ pitting edema bilateral upper and lower extremities. Chronic elephantiasis nostras Neuro: Moves 4 limbs to stimulation. Withdraws to pain. Follows simple commands on propofol drip at 15 mcg/kg/min. pupils are about 3 mm bilaterally and reactive Urinary Catheter: No Assessment to: Continue Vascular Central Line Catheter: Yes Assessment to: Continue Date of Insertion: Mar 01, 2018 Line: Central Venous Catheter Side: Left Location: Subclavian A/P Assessment and Plan NEURO/PSYCH: Acute toxic metabolic encephalopathy Patient is currently on propofol drip at 25 mcg/kg/min for sedation while intubated Goal of RASS -2 Daily sedation vacation As needed fentanyl 50 mcg every 1 hour as needed breakthrough pain See GI for hyperammonemia workup Acetaminophen 650 mg every 6 hours as needed fever RESP: Acute hypoxic respiratory failure Community-acquired pneumonia present on admission [facility] 16/600/1.25/5/40 Ventilator bundle Albuterol/ipratropium aerosols every 6 hours with albuterol aerosols every 2 hours as needed dyspnea Budesonide 0.5/2 1 inhalation twice daily Home medications include budesonide/formoterol 160/4.5 2 puffs twice daily and albuterol every 6 hours as needed Spontaneous breathing trials as clinically indicated. CPAP today as tolerated. Lasted 7.5 hours today so far 03/12 CV: Acute diastolic heart failure Severe TR -very poor candidate for replacement Hypertension 2D echocardiogram 09/15 revealed ejection fraction 50-55%. Right atrial dilatation. LVH. Severe TR. Home medications include metoprolol tartrate 25 mg twice daily and amlodipine 10 mg p.o. daily Metoprolol for tachycardia As needed hydralazine/Nitropaste for hypertension 2D limited echocardiogram Normal left ventricular size. Wall thickness is measured at the upper limits of normal. The left ventricular systolic function is low normal with an estimated ejection fraction of 50%. No definite regional wall motion abnormalities. There is mild tricuspid regurgitation. The estimated pulmonary arterial pressure is 50 mmHg. Continue diuresis with furosemide 40 mg IV daily with metolazone 2.5 milligrams daily Monitor for dysrhythmias. GI: Hypoalbuminemia Hyperammonia Gastroesophageal reflux disease continue Nepro tube feeds goal 45 cc an hour per nutrition's recommendations Lansoprazole 30 mg daily for GI prophylaxis. On omeprazole 40 mg daily at home Docusate sodium/senna 1 tablet twice daily for bowel regimen Continue lactulose 30 cc daily and Xifaxan 400 mg every 8 hours. 03/08. Ammonia levels currently less than 10. Like we will discontinue lactulose today Renal/: Acute kidney injury in setting of chronic kidney disease. Question ATN versus vascular congestion versus shock Followed by nephrology Currently on furosemide 40 mg IV daily and metolazone 2.5 mg daily continue Foster today given active diuresis. Cr continues to improve currently 1.65 Renal ultrasound revealed no hydronephrosis Home medications include bumetanide 1 mg daily and metolazone 5 mg daily ENDO: Hyperglycemia of critical illness SSI for euglycemia Novolin R with Accu-Cheks every 6 hours to maintain euglycemia/low regimen TSH 1.4 HEME: Macrocytic anemia CBC daily. Monitor trends Does not meet transfusion threshold at this time ID: Community acquired pneumonia Completed therapy ceftriaxone 1 g IV daily since 02/25. Plan 14 days total until 03/11 Pertinent cultures 03/08 -blood sputum and urine all no growth to date 03/01 -sputum culture negative to date, 02/25 -urine culture -gram-positive edison likely contaminant continue abx as ordered. Influenza a and B- FEN: Hypernatremia Replace electrolytes as clinically indicated Free water 100 cc every 6 hours MSK: Elevated BMI of 58.3 Osteoarthritis/osteoporosis Weight loss encouraged Continue ergocalciferol 50,000 units every 7 days when indicated PT evaluate and treat Access -Left subclavian CVL placed 03/01/18 discontinued 03/11 -Left radial arterial line placed 03/01/18 -discontinue 03/07 Prophylaxis -GI -lansoprazole -DVT -SCD/heparin Level 2 follow-up Vicente Gibson MD Mar 12, 2018 17:29
[2018-03-12] MEDS ORDERED: POTASSIUM CHLORIDE 20 MEQ PWD PACKET PO ONE (17:30)
[2018-03-13] VITALS (17 sets, daily range): BP systolic 125–138; BP diastolic 74–80; PULSE 66–77; RESP 21–31; TEMP 97.7–98.4; O2SAT 94–100
[2018-03-13] MEDS: PROPOFOL 1000 MG/100 ML INJ 100 ML IV PRN ×6 (00:24→18:17)
[2018-03-13] MEDS: RESP: ALBUTEROL 2.5 MG/IPRATROPIUM 0.5 MG NEB (SCH) NEB ×4 (03:37→20:44)
[2018-03-13 04:32] LABS: CALCIUM 8.7 MG/DL (8.5-10.1); CREATININE 1.69 MG/DL (0.60-1.30)
[2018-03-13 04:33] LABS: RANDOM VANCOMYCIN 16.4 COMMENT
[2018-03-13] MEDS: RIFAXIMIN 200 MG TAB PO SCH (05:57)
[2018-03-13] MEDS: HEPARIN SODIUM - SQ 10,000 UNITS/ML VIAL SQ SCH ×3 (05:57→21:21)
[2018-03-13] MEDS: FREE WATER G-TUBE SCH ×5 (05:58→21:22)
[2018-03-13] MEDS: INSULIN NovoLIN REGULAR SUPPLEMENTAL SCALE SQ SCH ×4 (05:58→18:00)
[2018-03-13] MEDS: ARTIFICIAL TEARS OPTH SOLN 15 ML BTL EACH EYE SCH ×3 (05:58→21:21)
[2018-03-13 06:42] LABS: HEMATOCRIT 31.7 % (39.0-51.0); HEMOGLOBIN 10.1 GM/DL (13.0-17.0); MEAN CELL VOLUME 99.8 FL (80.0-100.0); MEAN CORPUSCULAR HEMOGLOBIN 31.9 PG (27.0-34.0); MEAN PLATELET VOLUME 11.2 FL (7.0-11.0); PLATELET COUNT 167 TH/MM3 (150-450); RED BLOOD COUNT 3.18 MIL/MM3 (4.50-5.90); RED CELL DISTRIBUTION WIDTH 14.5 % (11.6-17.2); WHITE BLOOD COUNT 10.4 TH/MM3 (4.0-11.0)
[2018-03-13] MEDS: CHLORHEXIDINE 0.12% (ORAL KIT) 15 ML CUP MT SCH ×2 (08:00→21:20)
[2018-03-13] MEDS: LACTULOSE SYRUP 20 GM/30 ML CUP PO SCH (08:34)
[2018-03-13] MEDS: FUROSEMIDE 40 MG/4 ML VIAL IV PUSH SCH (08:35)
[2018-03-13] MEDS: DOCUSATE SODIUM 50 MG/SENNA 8.6 MG TAB PO SCH ×2 (08:35→21:21)
[2018-03-13] MEDS: METOLAZONE 2.5 MG TAB PO SCH (08:35)
[2018-03-13] MEDS: METOPROLOL TARTRATE 25 MG TAB PO SCH ×2 (08:36→21:21)
[2018-03-13] MEDS: SODIUM CHLORIDE 0.9% FLUSH 10 ML FLUSH IV FLUSH SCH ×2 (08:36→21:20)
[2018-03-13] MEDS: LANSOPRAZOLE SOLUTAB 30 MG TAB NG SCH (08:36)
--- NOTE | 2018-03-13 08:44 | HHI.CCPN ---
Subjective Remarks/Hospital Course This is a 67-year-old male with a PMH of Morbid Obesity, Prostate CA, HTN, Hyperlipidemia, COPD, Gout, CHF (Echo 09/29/2017 w/ EF 50-55%) who presented to the ER w/ complaints of generalized weakness and bilateral lower extremity pain x1 day. States he ran out of his medications approx 3wks ago, has noticed worsening weakness, unable to pull himself out of bed today. Notes chronic lower extremity wounds for approx 1 year, now w/ worsening drainage. Denies fever or chills. On arrival, BP 148/71, HR 60, O2 sat 98% on 2L NC, Afebrile. WBC normal. K+ 6.8. Creatinine 1.93, previously one-point 03/03 and 09/30/17. Troponin negative. INR 1.1. UA positive UTI. CXR pulmonary venous congestion , early pulmonary edema. S/p Insulin, D50, Ca and Kayexalate in ER. Dr. Quesada consulted for CHRISTAL and Hyperkalemia. S/p Rocephin for UTI 03/01: Continued CO2 retention and respiratory acidosis incompatible with survival despite BiPAP. Brought emergently to CVICU where I met him on his arrival. CXR and exam reveal fluid overload and new RLL infiltrate. Intubated immediately, central line placed and CVP 27 mm Hg. Started on milrinone and lasix gtt infusion. 03/02 remains intubated heavily sedated for ventilator synchrony. Remains on milrinone at 0.375, amylase against fusion at 10 mg/h. CVP has improved to 15. UO 2L in 24 hours 03/03: Remains intubated sedated, remains on high vent requirement with PEEP of 10 FiO2 60% oxygen saturation hardly above 90. Remains on milrinone infusion and Lasix infusion. Urine output 2.6L in 24 hours 03/04: Remains intubated, on sedation hold patient is able to follow commands. Critically ill but stabilizing. FiO2 requirement of 60% but saturation is 97% will attempt wean. Initiate Tyson Trac monitoring wean milrinone as tolerated. Creatinine 2.3 urine output 2.5 L in 24 hours. ABG shows acidemia. One amp of bicarb, increase respiratory rate to 20 6: Remains on PC/AC -changed to PRVC. FiO2 reduced to 45%, from 50%. UO 3.3 L in 24 hours. Had brief episode of V. tach yesterday currently off milrinone. Creat slightly improved to 2.28. 03/06: remains intubated and critically ill. net -3L/24h. still very volume overloaded on exam. CVP 21. 4/8: Afebrile. Excellent diuresis overnight currently on furosemide 40 mg IV every 8 hours. Creatinine down to less than 2. Arousable on the ventilator and follows commands. PEEP still at 8. 03/08: T-max 100.7. One level 35 cm. Sodium is elevated 147. Will cut back on diuresis. Will attempt PSV trial today. Positive BM 03/09: Afebrile. Currently on propofol drip at 25 mcg/kg/min. Tolerated CPAP trial 1 hours yesterday. Decreasing PEEP from 7-6 today. Diuresis -2 L overnight. Positive BM. 03/10: Afebrile. Remains on propofol drip at 25 mcg/kg/min. Tolerated 2 sessions of CPAP trials 2 yesterday. Decreasing PEEP to 6-5 today. Around 800 cc diuresis overnight. 03/11: Afebrile. Chest x-ray significantly improved. Tolerated CPAP trial 1.5 hours yesterday. Tolerating tube feeding. Positive BM. 03/12: Afebrile. Listed on CPAP trial from 07 30-4000. We will repeat later on today. Excellent diuresis continues. Chest x-ray essentially cleared. Positive BM. C. difficile -03/09. Subjective 03/13: Objective Vital Signs Date Time Temp Pulse Resp B/P (MAP) Pulse Ox O2 Delivery O2 Flow Rate FiO2 03/13/18 08:00 98.1 68 31 136/80 (98) 94 03/13/18 08:00 40 03/09/18 13:25 Venturi Mask Intake and Output 03/13/18 03/13/18 03/14/18 08:00 16:00 00:00 Intake Total 1132 ml Output Total 1600 ml Balance -468 ml Result Diagram: 03/13/18 8742 03/13/18 033 Other Results Microbiology Date/Time Source Procedure Growth Status 03/08/18 17:45 Blood Line Aerobic Blood Culture - Preliminary NO GROWTH IN 4 DAYS Resulted 03/08/18 17:45 Blood Line Anaerobic Blood Culture - Preliminary NO GROWTH IN 4 DAYS Resulted 03/08/18 18:30 Sputum Endotracheal Gram Stain - Final Complete 03/08/18 18:30 Sputum Endotracheal Sputum Culture - Final LIGHT GROWTH NORMAL RESPIRATORY EDISON Complete 03/08/18 17:30 Urine Catheterized Urine Urine Culture - Final NO GROWTH IN 48 HOURS. Complete Imaging Last Impressions Chest X-Ray 03/12/18 0600 Signed Impressions: Service Date/Time: Monday, March 12, 2018 04:31 - CONCLUSION: Interval Central line removal. Otherwise stable chest Armond Ybarra MD Renal Ultrasound 02/26/18 0000 Signed Impressions: Service Date/Time: Monday, February 26, 2018 14:30 - CONCLUSION: Stable exam; no evidence of hydronephrosis. Raf Mosqueda MD Objective Remarks GEN: 67-year-old -[place] male with elevated BMI currently resting in bed in no acute distress Head: AT/NC ENT/Neck: airway widely patent. Orotracheally intubated Lungs: Diminished breath sounds throughout. No wheezing appreciated Heart: RRR. S1, S2 predose for without murmur Abdomen: morbidly obese, soft, nondistended, no guarding or tenderness. Extremities: anasarca. 3+ pitting edema bilateral upper and lower extremities. Chronic elephantiasis nostras Neuro: Moves 4 limbs to stimulation. Withdraws to pain. Follows simple commands on propofol drip at 15 mcg/kg/min. pupils are about 3 mm bilaterally and reactive Urinary Catheter: Yes Assessment to: Continue Foster insert reason: Prolonged Immobilization Vascular Central Line Catheter: Yes Assessment to: Continue Date of Insertion: Mar 01, 2018 Line: Central Venous Catheter Side: Left Location: Subclavian A/P Assessment and Plan NEURO/PSYCH: Acute toxic metabolic encephalopathy Patient is currently on propofol drip at 15 mcg/kg/min for sedation while intubated Goal of RASS -2 Daily sedation vacation As needed fentanyl 50 mcg every 1 hour as needed breakthrough pain See GI for hyperammonemia workup Acetaminophen 650 mg every 6 hours as needed fever RESP: Acute hypoxic respiratory failure Community-acquired pneumonia present on admission [facility] 16/600/1.25/5/40 Ventilator bundle Albuterol/ipratropium aerosols every 6 hours with albuterol aerosols every 2 hours as needed dyspnea Budesonide 0.5/2 1 inhalation twice daily Home medications include budesonide/formoterol 160/4.5 2 puffs twice daily and albuterol every 6 hours as needed Spontaneous breathing trials as clinically indicated. CPAP today as tolerated. Lasted 7.5 hours today so far 03/12 CV: Acute diastolic heart failure Severe TR -very poor candidate for replacement Hypertension 2D echocardiogram 09/15 revealed ejection fraction 50-55%. Right atrial dilatation. LVH. Severe TR. Home medications include metoprolol tartrate 25 mg twice daily and amlodipine 10 mg p.o. daily Metoprolol for tachycardia As needed hydralazine/Nitropaste for hypertension 2D limited echocardiogram Normal left ventricular size. Wall thickness is measured at the upper limits of normal. The left ventricular systolic function is low normal with an estimated ejection fraction of 50%. No definite regional wall motion abnormalities. There is mild tricuspid regurgitation. The estimated pulmonary arterial pressure is 50 mmHg. Continue diuresis with furosemide 40 mg IV daily with metolazone 2.5 milligrams daily Monitor for dysrhythmias. GI: Hypoalbuminemia Hyperammonia Gastroesophageal reflux disease continue Nepro tube feeds goal 45 cc an hour per nutrition's recommendations Lansoprazole 30 mg daily for GI prophylaxis. On omeprazole 40 mg daily at home Docusate sodium/senna 1 tablet twice daily for bowel regimen Currently on lactulose 30 cc daily and Xifaxan 400 mg every 8 hours. 03/08. Ammonia levels currently less than 10. Discontinue Xifaxan and lactulose today Renal/: Acute kidney injury in setting of chronic kidney disease. Question ATN versus vascular congestion versus shock Followed by nephrology Currently on furosemide 40 mg IV daily and metolazone 2.5 mg daily continue Foster today given active diuresis. Cr continues to improve currently 1.69 Renal ultrasound revealed no hydronephrosis Home medications include bumetanide 1 mg daily and metolazone 5 mg daily ENDO: Hyperglycemia of critical illness SSI for euglycemia Novolin R with Accu-Cheks every 6 hours to maintain euglycemia/low regimen TSH 1.4 HEME: Macrocytic anemia CBC daily. Monitor trends Does not meet transfusion threshold at this time ID: Community acquired pneumonia Completed therapy ceftriaxone 1 g IV daily 02/25 until 03/11 Pertinent cultures 03/08 -blood sputum and urine all no growth to date 03/01 -sputum culture negative to date, 02/25 -urine culture -gram-positive edison likely contaminant continue abx as ordered. Influenza a and B- FEN: Hypernatremia Replace electrolytes as clinically indicated Free water 200 cc every 6 hours MSK: Elevated BMI of 58.3 Osteoarthritis/osteoporosis Weight loss encouraged Continue ergocalciferol 50,000 units every 7 days when indicated PT evaluate and treat Access -Left subclavian CVL placed 03/01/18 discontinued 03/11 -Left radial arterial line placed 03/01/18 -discontinue 03/07 Prophylaxis -GI -lansoprazole -DVT -SCD/heparin Level 2 follow-up Vicente Gibson MD Mar 13, 2018 08:44
--- NOTE | 2018-03-13 08:54 | HHI.CCPN ---
Subjective Remarks/Hospital Course This is a 67-year-old male with a PMH of Morbid Obesity, Prostate CA, HTN, Hyperlipidemia, COPD, Gout, CHF (Echo 09/29/2017 w/ EF 50-55%) who presented to the ER w/ complaints of generalized weakness and bilateral lower extremity pain x1 day. States he ran out of his medications approx 3wks ago, has noticed worsening weakness, unable to pull himself out of bed today. Notes chronic lower extremity wounds for approx 1 year, now w/ worsening drainage. Denies fever or chills. On arrival, BP 148/71, HR 60, O2 sat 98% on 2L NC, Afebrile. WBC normal. K+ 6.8. Creatinine 1.93, previously one-point 03/03 and 09/30/17. Troponin negative. INR 1.1. UA positive UTI. CXR pulmonary venous congestion , early pulmonary edema. S/p Insulin, D50, Ca and Kayexalate in ER. Dr. Quesada consulted for CHRISTAL and Hyperkalemia. S/p Rocephin for UTI 03/01: Continued CO2 retention and respiratory acidosis incompatible with survival despite BiPAP. Brought emergently to CVICU where I met him on his arrival. CXR and exam reveal fluid overload and new RLL infiltrate. Intubated immediately, central line placed and CVP 27 mm Hg. Started on milrinone and lasix gtt infusion. 03/02 remains intubated heavily sedated for ventilator synchrony. Remains on milrinone at 0.375, amylase against fusion at 10 mg/h. CVP has improved to 15. UO 2L in 24 hours 03/03: Remains intubated sedated, remains on high vent requirement with PEEP of 10 FiO2 60% oxygen saturation hardly above 90. Remains on milrinone infusion and Lasix infusion. Urine output 2.6L in 24 hours 03/04: Remains intubated, on sedation hold patient is able to follow commands. Critically ill but stabilizing. FiO2 requirement of 60% but saturation is 97% will attempt wean. Initiate Tyson Trac monitoring wean milrinone as tolerated. Creatinine 2.3 urine output 2.5 L in 24 hours. ABG shows acidemia. One amp of bicarb, increase respiratory rate to 20 6: Remains on PC/AC -changed to PRVC. FiO2 reduced to 45%, from 50%. UO 3.3 L in 24 hours. Had brief episode of V. tach yesterday currently off milrinone. Creat slightly improved to 2.28. 03/06: remains intubated and critically ill. net -3L/24h. still very volume overloaded on exam. CVP 21. 4/8: Afebrile. Excellent diuresis overnight currently on furosemide 40 mg IV every 8 hours. Creatinine down to less than 2. Arousable on the ventilator and follows commands. PEEP still at 8. 4/9: T-max 100.7. One level 35 cm. Sodium is elevated 147. Will cut back on diuresis. Will attempt PSV trial today. Positive BM 03/09: Afebrile. Currently on propofol drip at 25 mcg/kg/min. Tolerated CPAP trial 1 hours yesterday. Decreasing PEEP from 7-6 today. Diuresis -2 L overnight. Positive BM. 03/10: Afebrile. Remains on propofol drip at 25 mcg/kg/min. Tolerated 2 sessions of CPAP trials 2 yesterday. Decreasing PEEP to 6-5 today. Around 800 cc diuresis overnight. 03/11: Afebrile. Chest x-ray significantly improved. Tolerated CPAP trial 1.5 hours yesterday. Tolerating tube feeding. Positive BM. 03/12: Afebrile. Listed on CPAP trial from 07 30-4000. We will repeat later on today. Excellent diuresis continues. Chest x-ray essentially cleared. Positive BM. C. difficile -03/09. Subjective 03/13: Afebrile. Again lasted from 0730- 1430 yesterday on PSV trial. Tolerating tube feeding. Propofol drip and 50 mg/kg/min. Excellent diuresis continues. Objective Vital Signs Date Time Temp Pulse Resp B/P (MAP) Pulse Ox O2 Delivery O2 Flow Rate FiO2 03/13/18 08:00 98.1 68 31 136/80 (98) 94 03/13/18 08:00 40 03/09/18 13:25 Venturi Mask Intake and Output 03/13/18 03/13/18 03/14/18 08:00 16:00 00:00 Intake Total 1132 ml Output Total 1600 ml Balance -468 ml Result Diagram: 03/13/18 8851 03/13/18 0336 Other Results Microbiology Date/Time Source Procedure Growth Status 03/08/18 17:45 Blood Line Aerobic Blood Culture - Preliminary NO GROWTH IN 4 DAYS Resulted 03/08/18 17:45 Blood Line Anaerobic Blood Culture - Preliminary NO GROWTH IN 4 DAYS Resulted 03/08/18 18:30 Sputum Endotracheal Gram Stain - Final Complete 03/08/18 18:30 Sputum Endotracheal Sputum Culture - Final LIGHT GROWTH NORMAL RESPIRATORY EDISON Complete 03/08/18 17:30 Urine Catheterized Urine Urine Culture - Final NO GROWTH IN 48 HOURS. Complete Imaging Last Impressions Chest X-Ray 03/12/18 0600 Signed Impressions: Service Date/Time: Monday, March 12, 2018 04:31 - CONCLUSION: Interval Central line removal. Otherwise stable chest Armond Ybarra MD Renal Ultrasound 02/26/18 0000 Signed Impressions: Service Date/Time: Monday, February 26, 2018 14:30 - CONCLUSION: Stable exam; no evidence of hydronephrosis. Raf Mosqueda MD Objective Remarks GEN: 67-year-old -[place] male with elevated BMI currently resting in bed in no acute distress Head: AT/NC ENT/Neck: airway widely patent. Orotracheally intubated Lungs: Diminished breath sounds throughout. No wheezing appreciated Heart: RRR. S1, S2 predose for without murmur Abdomen: morbidly obese, soft, nondistended, no guarding or tenderness. Extremities: anasarca. 3+ pitting edema bilateral upper and lower extremities. Chronic elephantiasis nostras Neuro: Moves 4 limbs to stimulation. Withdraws to pain. Follows simple commands on propofol drip at 15 mcg/kg/min. pupils are about 3 mm bilaterally and reactive Urinary Catheter: Yes Assessment to: Continue Foster insert reason: ICU Pt Getting Diuretics Vascular Central Line Catheter: Yes Assessment to: Continue Date of Insertion: Mar 01, 2018 Line: Central Venous Catheter Side: Left Location: Subclavian A/P Assessment and Plan NEURO/PSYCH: Acute toxic metabolic encephalopathy Patient is currently on propofol drip at 15 mcg/kg/min for sedation while intubated Goal of RASS -2 Daily sedation vacation As needed fentanyl 50 mcg every 1 hour as needed breakthrough pain See GI for hyperammonemia workup Acetaminophen 650 mg every 6 hours as needed fever RESP: Acute hypoxic respiratory failure Community-acquired pneumonia present on admission PRVC 16/600/1.25/5/40 Ventilator bundle Albuterol/ipratropium aerosols every 6 hours with albuterol aerosols every 2 hours as needed dyspnea Budesonide 0.5/2 1 inhalation twice daily Home medications include budesonide/formoterol 160/4.5 2 puffs twice daily and albuterol every 6 hours as needed Spontaneous breathing trials as clinically indicated. CPAP today as tolerated. Lasted 7.5 hours today so far 03/12 CV: Acute diastolic heart failure Severe TR -very poor candidate for replacement Hypertension 2D echocardiogram 09/15 revealed ejection fraction 50-55%. Right atrial dilatation. LVH. Severe TR. Home medications include metoprolol tartrate 25 mg twice daily and amlodipine 10 mg p.o. daily Metoprolol for tachycardia As needed hydralazine/Nitropaste for hypertension 2D limited echocardiogram Normal left ventricular size. Wall thickness is measured at the upper limits of normal. The left ventricular systolic function is low normal with an estimated ejection fraction of 50%. No definite regional wall motion abnormalities. There is mild tricuspid regurgitation. The estimated pulmonary arterial pressure is 50 mmHg. Continue diuresis with furosemide 40 mg IV daily with metolazone 2.5 milligrams daily Monitor for dysrhythmias. GI: Hypoalbuminemia Hyperammonemia Gastroesophageal reflux disease continue Nepro tube feeds goal 45 cc an hour per nutrition's recommendations Lansoprazole 30 mg daily for GI prophylaxis. On omeprazole 40 mg daily at home Docusate sodium/senna 1 tablet twice daily for bowel regimen Currently on lactulose 30 cc daily and Xifaxan 400 mg every 8 hours. 03/08. Ammonia levels currently less than 10. Discontinue Xifaxan and lactulose today Renal/: Acute kidney injury in setting of chronic kidney disease. ? ATN versus vascular congestion versus shock Followed by nephrology Currently on furosemide 40 mg IV daily and metolazone 2.5 mg daily continue Foster today given active diuresis. Cr continues to improve currently 1.69 Renal ultrasound revealed no hydronephrosis Home medications include bumetanide 1 mg daily and metolazone 5 mg daily ENDO: Hyperglycemia of critical illness SSI for euglycemia Novolin R with Accu-Cheks every 6 hours to maintain euglycemia/low regimen TSH 1.4 HEME: Macrocytic anemia CBC daily. Monitor trends Does not meet transfusion threshold at this time ID: Community acquired pneumonia Completed therapy ceftriaxone 1 g IV daily 02/25 until 03/11 Pertinent cultures 03/08 -blood sputum and urine all no growth to date 03/01 -sputum culture negative to date, 02/25 -urine culture -gram-positive edison likely contaminant continue abx as ordered. Influenza a and B- FEN: Hypernatremia Replace electrolytes as clinically indicated Free water 200 cc every 6 hours MSK: Elevated BMI of 58.3 Osteoarthritis/osteoporosis Weight loss encouraged Continue ergocalciferol 50,000 units every 7 days when indicated PT evaluate and treat Access -Left subclavian CVL placed 03/01/18 discontinued 03/11 -Left radial arterial line placed 03/01/18 -discontinue 03/07 Prophylaxis -GI -lansoprazole -DVT -SCD/heparin Level 2 follow-up Vicente Gibson MD Mar 13, 2018 08:54
[2018-03-13] MEDS: POTASSIUM CHLORIDE 20 MEQ PWD PACKET NG SCH ×2 (09:00→21:20)
[2018-03-13] MEDS: RESP: BUDESONIDE 0.5 MG/2 ML NEB NEB SCH ×2 (09:19→20:44)
--- NOTE | 2018-03-13 09:58 | HHI.NPPN ---
Subjective General Problems: Edema, Hypertension Renal Failure: Chronic, Acute History of Present Illness This is a 67-year-old male with a past medical history of hypertension, hyperlipidemia, chronic kidney disease, history of acute kidney injury, congestive heart failure, chronic obstructive pulmonary disease, history of lymphedema of the leg, morbid obesity, came to the hospital with generalized weakness. Nephrology was called to see the patient because of very high BUN and creatinine and high potassium. The patient has a history of chronic kidney disease and he has recurrent acute kidney injury. The patient now came with a creatinine of 1.9 and a potassium of 6.8. The patient previously has creatinine in the range of 1.4-1.5 most of the time, and he had acute kidney injury in April of last year where the creatinine went up to 3.8. He is not following with any can line examiner according to him on a regular basis. The patient is not a very good historian. Most of the history was taken from patient's chart and some from the patient himself. According to him, he was feeling weak and tired, and he has worsening shortness of breath and he came to the hospital. He denies taking any nonsteroid anti- inflammatory drugs. He denies taking any diuretics. He has this swelling in the legs and he has wound in both legs, for which, according to him, he is doing the dressing by himself. There is no documentation of any antibiotics for him. Additional Remarks Renal function is about the same. Hypernatremia is worse. Review of Systems General General Remarks Unable to do ROS patient is intubated Objective Data Data Vital Signs Date Time Temp Pulse Resp B/P (MAP) Pulse Ox O2 Delivery O2 Flow Rate FiO2 03/13/18 08:00 98.1 68 31 136/80 (98) 94 03/13/18 08:00 40 03/13/18 08:00 40 03/13/18 08:00 95 40 03/13/18 08:00 69 03/13/18 04:22 94 40 03/13/18 02:00 72 03/13/18 01:35 94 40 03/13/18 01:00 74 21 125/74 (91) 94 03/13/18 00:00 40 03/13/18 00:00 77 03/13/18 00:00 98.1 77 26 135/76 (95) 95 03/12/18 23:00 72 29 122/71 (88) 94 03/12/18 22:30 94 40 03/12/18 22:00 76 27 127/73 (91) 95 03/12/18 22:00 74 03/12/18 21:00 75 24 115/66 (82) 93 03/12/18 20:00 97.8 74 23 115/69 (84) 93 03/12/18 20:00 40 03/12/18 20:00 74 03/12/18 19:15 94 40 03/12/18 18:00 51 03/12/18 16:00 69 03/12/18 16:00 98.1 70 27 129/59 (82) 93 03/12/18 16:00 40 03/12/18 15:53 96 40 03/12/18 14:00 69 03/12/18 12:00 40 03/12/18 12:00 98.2 71 16 148/69 (95) 97 03/12/18 12:00 72 03/12/18 11:19 99 40 03/12/18 10:00 72 -: 03/13/18 0505 03/13/18 0338 Tubes & Lines: Foster Physical Exam General Appearance: No Acute Distress, Obese Pulmonary Resp Exam: Breath Sounds Equal, No Distress, Decreased Bases Cardiology CV Exam: Regular Gastrointestinal/Abdomen GI Exam: Soft, Non-Tender Genitourinary Exam: Flank Non-Tender Integumentary Skin Exam: Clear, Warm Extremeties Extremities Exam: Moderate Edema, Pitting Edema, Dependent Edema Neurologic Neuro Exam: Sedated Assessment/Plan Discussed Condition With: Patient Problem List: (1) CHRISTAL (acute kidney injury) ICD Codes: N17.9 - Acute kidney failure, unspecified Plan: Acute Kidney injury possible related to ATN. CKD possibly related to HTN or renovascular disease. Creatinine remains stable. Hypernatremia is worse, increase free water. (2) Hyperkalemia ICD Codes: E87.5 - Hyperkalemia Status: Acute Plan: Resolved (3) UTI (urinary tract infection) ICD Codes: N39.0 - Urinary tract infection, site not specified Status: Acute Plan: resolved Problem Qualifiers (1) UTI (urinary tract infection): Qualified Codes: N39.0 - Urinary tract infection, site not specified Mauro Gill MD Mar 13, 2018 09:58
--- NOTE | 2018-03-13 11:04 | RADRPT ---
EXAM DATE/TIME: 03/13/2018 09:26 [facility] COMPARISON: US LEG BILATERAL VENOUS DOPPLER, December 16, 2016, 17:07. INDICATIONS : Bilateral leg edema. MEDICAL HISTORY : Congestive heart failure. Hypercholesterolemia. Carcinoma, prostate. Syncope. Chest pain. HTN. COPD. Sleep apnea. Dyspnea. Morbid obesity. GERD. Renal disease and failure. Arthritis. Gout. Diabetes. MRS A. SURGICAL HISTORY : Right carpel tunnel surgery. Chemotherapy. Radiation therapy. ENCOUNTER: Initial ACUITY: 1 day PAIN SCORE: Non-responsive LOCATION: Bilateral leg. TECHNIQUE: Venous ultrasound of the left and right leg was performed from the inguinal ligament to the proximal calf. Real-time, color Doppler and spectral tracing, compression and augmentation techniques were us ed. Limited by body habitus FINDINGS: RIGHT LEG: There is normal compressibility of the deep venous system from the inguinal region to the proximal ca lf. No echogenic clot is seen in the lumen of the common femoral, femoral, popliteal, and posterior tibial veins. There is a normal response of the venous system to proximal and distal augmentation an d respiration. LEFT LEG: There is normal compressibility of the deep venous system from the inguinal region to the proximal ca lf. No echogenic clot is seen in the lumen of the common femoral, femoral, popliteal, and posterior tibial veins. There is a normal response of the venous system to proximal and distal augmentation an d respiration. CONCLUSION: Limited by body habitus, negative for DVT.. Alex Trejo MD FACR on March 13, 2018 at 11:02 Board Certified Radiologist. This report was verified electronically.
[2018-03-13] MEDS ORDERED: VANCOMYCIN INJ 2,000 MG in SODIUM CHLORID 0.9% 500 ML INJ 500 ML IV ONE (20:00)
[2018-03-14] VITALS (17 sets, daily range): BP systolic 129–142; BP diastolic 75–82; PULSE 68–76; RESP 17–28; TEMP 97.6–98.3; O2SAT 95–100
[2018-03-14] MEDS: RESP: ALBUTEROL 2.5 MG/IPRATROPIUM 0.5 MG NEB (SCH) NEB ×3 (03:19→14:41)
[2018-03-14] MEDS: PROPOFOL 1000 MG/100 ML INJ 100 ML IV PRN ×5 (03:49→22:47)
[2018-03-14 04:59] LABS: BICARBONATE 25.9 MEQ/L (21.0-32.0); CALCIUM 9.2 MG/DL (8.5-10.1); CREATININE 1.65 MG/DL (0.60-1.30); MAGNESIUM 2.4 MG/DL (1.5-2.5)
--- NOTE | 2018-03-14 05:11 | RADRPT ---
EXAM DATE/TIME: 03/14/2018 03:31 [facility] COMPARISON: CHEST SINGLE AP, March 12, 2018, 4:31. INDICATIONS : Shortness of breath, possible pulmonary disease. MEDICAL HISTORY : Congestive heart failure. Hypertension Chronic obstructive pulmonary disease. SURGICAL HISTORY : None. ENCOUNTER: Subsequent ACUITY: 1 week PAIN SCORE: Non-responsive. LOCATION: Bilateral chest FINDINGS: The cardiac silhouette is enlarged in transverse diameter. There is prominence of the central pulmona ry vasculature with indistinct vascular margins compatible with vascular congestion but no evidence o f overt failure. Support lines and tubes are in satisfactory position. CONCLUSION: 1. Cardiomegaly and findings of vascular congestion without overt failure. There has been no signific ant change when compared to the prior exam. Ji Wellington MD on March 14, 2018 at 5:09 Board Certified Radiologist. This report was verified electronically.
[2018-03-14 05:15] LABS: HEMATOCRIT 31.9 % (39.0-51.0); HEMOGLOBIN 10.1 GM/DL (13.0-17.0); MEAN CELL VOLUME 99.3 FL (80.0-100.0); MEAN CORPUSCULAR HEMOGLOBIN 31.4 PG (27.0-34.0); MEAN CORPUSCULAR HGB CONC 31.6 % (32.0-36.0); MEAN PLATELET VOLUME 11.4 FL (7.0-11.0); PLATELET COUNT 160 TH/MM3 (150-450); RED BLOOD COUNT 3.21 MIL/MM3 (4.50-5.90); RED CELL DISTRIBUTION WIDTH 14.4 % (11.6-17.2); WHITE BLOOD COUNT 11.5 TH/MM3 (4.0-11.0)
[2018-03-14] MEDS: FREE WATER G-TUBE SCH ×3 (06:00→18:00)
[2018-03-14] MEDS: ARTIFICIAL TEARS OPTH SOLN 15 ML BTL EACH EYE SCH ×2 (06:00→14:19)
[2018-03-14] MEDS: INSULIN NovoLIN REGULAR SUPPLEMENTAL SCALE SQ SCH ×4 (06:00→18:00)
[2018-03-14] MEDS: HEPARIN SODIUM - SQ 10,000 UNITS/ML VIAL SQ SCH ×2 (07:19→14:19)
[2018-03-14] MEDS: CHLORHEXIDINE 0.12% (ORAL KIT) 15 ML CUP MT SCH (08:00)
[2018-03-14] MEDS: RESP: BUDESONIDE 0.5 MG/2 ML NEB NEB SCH ×2 (09:21→20:42)
[2018-03-14] MEDS: FUROSEMIDE 40 MG/4 ML VIAL IV PUSH SCH (09:26)
[2018-03-14] MEDS: ERGOCALCIFEROL (VIT D2) 50,000 UNIT CAP PO SCH (09:26)
[2018-03-14] MEDS: DOCUSATE SODIUM 50 MG/SENNA 8.6 MG TAB PO SCH (09:26)
[2018-03-14] MEDS: METOLAZONE 2.5 MG TAB PO SCH (09:27)
[2018-03-14] MEDS: METOPROLOL TARTRATE 25 MG TAB PO SCH (09:27)
[2018-03-14] MEDS: LANSOPRAZOLE SOLUTAB 30 MG TAB NG SCH (09:27)
[2018-03-14] MEDS: SODIUM CHLORIDE 0.9% FLUSH 10 ML FLUSH IV FLUSH SCH (09:28)
--- NOTE | 2018-03-14 13:43 | HHI.CCPN ---
Subjective Remarks/Hospital Course This is a 67-year-old male with a PMH of Morbid Obesity, Prostate CA, HTN, Hyperlipidemia, COPD, Gout, CHF (Echo 09/29/2017 w/ EF 50-55%) who presented to the ER w/ complaints of generalized weakness and bilateral lower extremity pain x1 day. States he ran out of his medications approx 3wks ago, has noticed worsening weakness, unable to pull himself out of bed today. Notes chronic lower extremity wounds for approx 1 year, now w/ worsening drainage. Denies fever or chills. On arrival, BP 148/71, HR 60, O2 sat 98% on 2L NC, Afebrile. WBC normal. K+ 6.8. Creatinine 1.93, previously one-point 03/03 and 09/30/17. Troponin negative. INR 1.1. UA positive UTI. CXR pulmonary venous congestion , early pulmonary edema. S/p Insulin, D50, Ca and Kayexalate in ER. Dr. Quesada consulted for CHRISTAL and Hyperkalemia. S/p Rocephin for UTI 03/01: Continued CO2 retention and respiratory acidosis incompatible with survival despite BiPAP. Brought emergently to CVICU where I met him on his arrival. CXR and exam reveal fluid overload and new RLL infiltrate. Intubated immediately, central line placed and CVP 27 mm Hg. Started on milrinone and lasix gtt infusion. 03/02 remains intubated heavily sedated for ventilator synchrony. Remains on milrinone at 0.375, amylase against fusion at 10 mg/h. CVP has improved to 15. UO 2L in 24 hours 03/03: Remains intubated sedated, remains on high vent requirement with PEEP of 10 FiO2 60% oxygen saturation hardly above 90. Remains on milrinone infusion and Lasix infusion. Urine output 2.6L in 24 hours 03/04: Remains intubated, on sedation hold patient is able to follow commands. Critically ill but stabilizing. FiO2 requirement of 60% but saturation is 97% will attempt wean. Initiate Tyson Trac monitoring wean milrinone as tolerated. Creatinine 2.3 urine output 2.5 L in 24 hours. ABG shows acidemia. One amp of bicarb, increase respiratory rate to 20 6: Remains on PC/AC -changed to PRVC. FiO2 reduced to 45%, from 50%. UO 3.3 L in 24 hours. Had brief episode of V. tach yesterday currently off milrinone. Creat slightly improved to 2.28. 03/06: remains intubated and critically ill. net -3L/24h. still very volume overloaded on exam. CVP 21. 4/8: Afebrile. Excellent diuresis overnight currently on furosemide 40 mg IV every 8 hours. Creatinine down to less than 2. Arousable on the ventilator and follows commands. PEEP still at 8. 4/9: T-max 100.7. One level 35 cm. Sodium is elevated 147. Will cut back on diuresis. Will attempt PSV trial today. Positive BM 03/09: Afebrile. Currently on propofol drip at 25 mcg/kg/min. Tolerated CPAP trial 1 hours yesterday. Decreasing PEEP from 7-6 today. Diuresis -2 L overnight. Positive BM. 03/10: Afebrile. Remains on propofol drip at 25 mcg/kg/min. Tolerated 2 sessions of CPAP trials 2 yesterday. Decreasing PEEP to 6-5 today. Around 800 cc diuresis overnight. 03/11: Afebrile. Chest x-ray significantly improved. Tolerated CPAP trial 1.5 hours yesterday. Tolerating tube feeding. Positive BM. 03/12: Afebrile. Listed on CPAP trial from 07 30-4000. We will repeat later on today. Excellent diuresis continues. Chest x-ray essentially cleared. Positive BM. C. difficile -03/09. Subjective 03/13: Afebrile. Again lasted from 0730- 1430 yesterday on PSV trial. Tolerating tube feeding. Propofol drip and 50 mg/kg/min. Excellent diuresis continues. 03/14: Late entry note, patient seen at 10:30 AM. Patient tolerated CPAP trials for approximately 12 hours yesterday. Patient currently on propofol at 10 mics per kilo per minute. Patient awake responsive nodding yes and no questions. Plan to continue CPAP trials as long as clinical only tolerrated to include throughout the night. Objective Vital Signs Date Time Temp Pulse Resp B/P (MAP) Pulse Ox O2 Delivery O2 Flow Rate FiO2 03/14/18 12:00 40 03/14/18 12:00 74 03/14/18 12:00 98.3 28 142/80 (100) 100 Intake and Output 03/14/18 03/14/18 03/15/18 08:00 16:00 00:00 Intake Total 845 ml Output Total 1200 ml Balance -355 ml Result Diagram: 03/14/18 0421 03/14/18 0421 Imaging Last Impressions Chest X-Ray 03/12/18 0600 Signed Impressions: Service Date/Time: Monday, March 12, 2018 04:31 - CONCLUSION: Interval Central line removal. Otherwise stable chest Armond Ybarra MD Renal Ultrasound 02/26/18 0000 Signed Impressions: Service Date/Time: Monday, February 26, 2018 14:30 - CONCLUSION: Stable exam; no evidence of hydronephrosis. aRf Mosqueda MD Objective Remarks GEN: 67-year-old -[place] male with elevated BMI currently resting in bed in no acute distress, nodding head to yes and no questions Head: AT/NC ENT/Neck: airway widely patent. Orotracheally intubated Lungs: Diminished breath sounds throughout. No wheezing appreciated Heart: RRR. S1, S2 predose for without murmur Abdomen: morbidly obese, soft, nondistended, no guarding or tenderness. Extremities: anasarca. 3+ pitting edema bilateral upper and lower extremities. Chronic elephantiasis nostras Neuro: Moves 4 limbs to stimulation. Withdraws to pain. Follows simple commands on propofol drip at 10 mcg/kg/min. pupils are about 3 mm bilaterally and reactive Date of Insertion: Mar 01, 2018 Line: Central Venous Catheter Side: Left Location: Subclavian A/P Problem List: (1) Acute hypoxemic respiratory failure ICD Code: J96.01 - Acute respiratory failure with hypoxia (2) Hypercapnic respiratory failure ICD Code: J96.92 - Respiratory failure, unspecified with hypercapnia (3) CHF (congestive heart failure) ICD Code: I50.9 - Heart failure, unspecified Status: Acute (4) Pneumonia ICD Code: J18.9 - Pneumonia, unspecified organism (5) [id number]-jp-[id number] kidney injury ICD Code: N17.9 - Acute kidney failure, unspecified; N18.9 - Chronic kidney disease, unspecified Status: Acute (6) Hyperkalemia ICD Code: E87.5 - Hyperkalemia Status: Acute (7) Morbid obesity ICD Code: E66.01 - Morbid (severe) obesity due to excess calories Status: Chronic (8) CHF (congestive heart failure) ICD Code: I50.9 - Heart failure, unspecified Assessment and Plan NEURO/PSYCH: Acute toxic metabolic encephalopathy Patient is currently on propofol drip at 10 mcg/kg/min for sedation while intubated, to maintain ventilator synchrony Goal of RASS -2 Daily sedation vacation As needed fentanyl 50 mcg every 1 hour as needed breakthrough pain See GI for hyperammonemia workup Acetaminophen 650 mg every 6 hours as needed fever Lactulose 30 cc 1 dose this a.m. RESP: Acute hypoxic respiratory failure Community-acquired pneumonia present on admission PRV 16/600/1.25//40 Ventilator bundle Albuterol/ipratropium aerosols every 6 hours with albuterol aerosols every 2 hours as needed dyspnea Budesonide 0.5/2 1 inhalation twice daily Home medications include budesonide/formoterol 160/4.5 2 puffs twice daily and albuterol every 6 hours as needed Spontaneous breathing trials as clinically indicated. CPAP today as tolerated. Lasted 7.5 hours today so far 03/12 CV: Acute diastolic heart failure Severe TR -very poor candidate for replacement Hypertension 2D echocardiogram 09/15 revealed ejection fraction 50-55%. Right atrial dilatation. LVH. Severe TR. Home medications include metoprolol tartrate 25 mg twice daily and amlodipine 10 mg p.o. daily Metoprolol for tachycardia As needed hydralazine/Nitropaste for hypertension 2D limited echocardiogram Normal left ventricular size. Wall thickness is measured at the upper limits of normal. The left ventricular systolic function is low normal with an estimated ejection fraction of 50%. No definite regional wall motion abnormalities. There is mild tricuspid regurgitation. The estimated pulmonary arterial pressure is 50 mmHg. Continue diuresis with furosemide 40 mg IV daily with metolazone 2.5 milligrams daily Monitor for dysrhythmias. GI: Hypoalbuminemia Hyperammonemia Gastroesophageal reflux disease continue Nepro tube feeds goal 45 cc an hour per nutrition's recommendations Lansoprazole 30 mg daily for GI prophylaxis. On omeprazole 40 mg daily at home Docusate sodium/senna 1 tablet twice daily for bowel regimen Currently on lactulose 30 cc daily and Xifaxan 400 mg every 8 hours. 03/08. 03/14 Ammonia level elevated 35. Lactulose reinitiated Renal/: Acute kidney injury in setting of chronic kidney disease. ? ATN versus vascular congestion versus shock Followed by nephrology Currently on furosemide 40 mg IV daily and metolazone 2.5 mg daily continue Foster today given active diuresis. Cr continues to improve currently 1.69 Renal ultrasound revealed no hydronephrosis Home medications include bumetanide 1 mg daily and metolazone 5 mg daily ENDO: Hyperglycemia of critical illness SSI for euglycemia Novolin R with Accu-Cheks every 6 hours to maintain euglycemia/low regimen TSH 1.4 HEME: Macrocytic anemia CBC daily. Monitor trends Does not meet transfusion threshold at this time ID: Community acquired pneumonia Completed therapy ceftriaxone 1 g IV daily 02/25 until 03/11 Pertinent cultures 03/08 -blood sputum and urine all no growth to date 03/01 -sputum culture negative to date, 02/25 -urine culture -gram-positive edison likely contaminant continue abx as ordered. Influenza A and B-negative FEN: Hypernatremia Replace electrolytes as clinically indicated Free water 200 cc every 6 hours MSK: Elevated BMI of 58.3 Osteoarthritis/osteoporosis Weight loss encouraged Continue ergocalciferol 50,000 units every 7 days when indicated PT evaluate and treat Access -Left subclavian CVL placed 03/01/18 discontinued 03/11 -Left radial arterial line placed 03/01/18 -discontinue 03/07 Prophylaxis -GI -lansoprazole -DVT -SCD/heparin Level 2 follow-up Physician Germania Greene Problem Qualifiers (1) Hypercapnic respiratory failure: Qualified Codes: J96.22 - Acute and chronic respiratory failure with hypercapnia (2) CHF (congestive heart failure): Qualified Codes: I50.23 - Acute on chronic systolic (congestive) heart failure (3) Pneumonia: Germania Greene MD Mar 14, 2018 13:43
[2018-03-14] MEDS ORDERED: LACTULOSE SYRUP 20 GM/30 ML CUP PO ONE (13:45)
[2018-03-14] MEDS: RESP: ALBUTEROL 2.5 MG/3 ML NEB (PRN) NEB (20:44)
[2018-03-15] VITALS (27 sets, daily range): BP systolic 124–160; BP diastolic 69–86; PULSE 72–90; RESP 14–44; TEMP 97.1–98.7; O2SAT 97–100
[2018-03-15] MEDS: SODIUM CHLORIDE 0.9% FLUSH 10 ML FLUSH IV FLUSH SCH ×3 (00:48→22:01)
[2018-03-15] MEDS: CHLORHEXIDINE 0.12% (ORAL KIT) 15 ML CUP MT SCH ×3 (00:48→19:36)
[2018-03-15] MEDS: METOPROLOL TARTRATE 25 MG TAB PO SCH ×3 (00:48→22:01)
[2018-03-15] MEDS: HEPARIN SODIUM - SQ 10,000 UNITS/ML VIAL SQ SCH ×4 (00:49→22:00)
[2018-03-15] MEDS: ARTIFICIAL TEARS OPTH SOLN 15 ML BTL EACH EYE SCH ×4 (00:49→22:00)
[2018-03-15] MEDS: DOCUSATE SODIUM 50 MG/SENNA 8.6 MG TAB PO SCH ×3 (00:49→22:01)
[2018-03-15] MEDS: PROPOFOL 1000 MG/100 ML INJ 100 ML IV PRN (03:41)
--- NOTE | 2018-03-15 05:06 | RADRPT ---
EXAM DATE/TIME: 03/15/2018 03:19 [facility] COMPARISON: CHEST SINGLE AP, March 14, 2018, 3:31. INDICATIONS : Shortness of breath, possible pulmonary disease. MEDICAL HISTORY : Congestive heart failure. Hypertension Chronic obstructive pulmonary disease. SURGICAL HISTORY : None. ENCOUNTER: Subsequent ACUITY: 1 week PAIN SCORE: Non-responsive. LOCATION: Bilateral chest FINDINGS: Mild left base consolidation again noted, not significantly changed. No large effusion. No pneumothor ax. Mild cardiomegaly is stable. Endotracheal tube tip is approximately 3 cm above the jeremias. Nasogastric tube courses into the stoma ch. CONCLUSION: No significant change. Armond Roman MD on March 15, 2018 at 5:04 Board Certified Radiologist. This report was verified electronically.
[2018-03-15] MEDS: INSULIN NovoLIN REGULAR SUPPLEMENTAL SCALE SQ SCH ×4 (06:00→18:00)
[2018-03-15] MEDS: FREE WATER G-TUBE SCH ×5 (06:00→19:36)
[2018-03-15] MEDS: FUROSEMIDE 40 MG/4 ML VIAL IV PUSH SCH (07:57)
[2018-03-15] MEDS: LACTULOSE SYRUP 20 GM/30 ML CUP PO SCH (08:02)
[2018-03-15] MEDS: LANSOPRAZOLE SOLUTAB 30 MG TAB NG SCH (08:03)
[2018-03-15] MEDS: METOLAZONE 2.5 MG TAB PO SCH (08:03)
[2018-03-15] MEDS: RESP: BUDESONIDE 0.5 MG/2 ML NEB NEB SCH ×2 (08:29→20:53)
[2018-03-15 08:58] LABS: AUTOMATED NEUTROPHIL # 7.4 TH/MM3 (1.8-7.7); BASOPHIL # 0.1 TH/MM3 (0-0.2); BASOPHIL % 0.7 % (0.0-2.0); EOSINOPHIL # 0.2 TH/MM3 (0-0.4); EOSINOPHIL % 2.5 % (0.0-4.0); HEMATOCRIT 32.8 % (39.0-51.0); HEMOGLOBIN 10.5 GM/DL (13.0-17.0); LYMPH % 13.4 % (9.0-44.0); LYMPHOCYTE # 1.3 TH/MM3 (1.0-4.8); MEAN CELL VOLUME 98.5 FL (80.0-100.0); MEAN CORPUSCULAR HEMOGLOBIN 31.6 PG (27.0-34.0); MEAN PLATELET VOLUME 11.1 FL (7.0-11.0); MONO % 6.9 % (0.0-8.0); MONOCYTE # 0.7 TH/MM3 (0-0.9); NEUT % 76.5 % (16.0-70.0); PLATELET COUNT 202 TH/MM3 (150-450); RED BLOOD COUNT 3.33 MIL/MM3 (4.50-5.90); RED CELL DISTRIBUTION WIDTH 14.4 % (11.6-17.2); WHITE BLOOD COUNT 9.6 TH/MM3 (4.0-11.0)
[2018-03-15 09:21] LABS: BICARBONATE 25.1 MEQ/L (21.0-32.0); CALCIUM 9.1 MG/DL (8.5-10.1); CREATININE 1.66 MG/DL (0.60-1.30)
--- NOTE | 2018-03-15 10:31 | HHI.NPPN ---
Subjective General Problems: Edema, Hypertension Renal Failure: Chronic, Acute History of Present Illness This is a 67-year-old male with a past medical history of hypertension, hyperlipidemia, chronic kidney disease, history of acute kidney injury, congestive heart failure, chronic obstructive pulmonary disease, history of lymphedema of the leg, morbid obesity, came to the hospital with generalized weakness. Nephrology was called to see the patient because of very high BUN and creatinine and high potassium. The patient has a history of chronic kidney disease and he has recurrent acute kidney injury. The patient now came with a creatinine of 1.9 and a potassium of 6.8. The patient previously has creatinine in the range of 1.4-1.5 most of the time, and he had acute kidney injury in April of last year where the creatinine went up to 3.8. 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 The patient is not a very good historian. Most of the history was taken from patient's chart and some from the patient himself. According to him, he was feeling weak and tired, and he has worsening shortness of breath and he came to the hospital. He denies taking any nonsteroid anti- inflammatory drugs. He denies taking any diuretics. He has this swelling in the legs and he has wound in both legs, for which, according to him, he is doing the dressing by himself. There is no documentation of any antibiotics for him. Additional Remarks On ventilator with weaning trial. Creatinine remains stable with good urine output. (Alana Petty) Review of Systems General General Remarks Unable to do ROS patient is intubated (Alana Petty) Objective Data Data 03/15/18 03/16/18 19:00 07:00 Intake Total 18 ml Balance 18 ml IV Total 18 ml Vital Signs Date Time Temp Pulse Resp B/P (MAP) Pulse Ox O2 Delivery O2 Flow Rate FiO2 03/15/18 08:29 100 30 03/15/18 07:52 97.1 78 17 140/80 (100) 100 03/15/18 06:00 77 03/15/18 04:00 30 03/15/18 04:00 74 03/15/18 04:00 35 03/15/18 04:00 97.7 74 22 134/69 (90) 98 03/15/18 04:00 99 30 03/15/18 02:00 74 03/15/18 00:32 97 35 03/15/18 00:00 72 03/15/18 00:00 35 03/15/18 00:00 98.7 72 14 124/75 (91) 97 03/14/18 22:00 75 03/14/18 20:41 97 35 03/14/18 20:00 35 03/14/18 20:00 73 03/14/18 20:00 97.7 73 23 133/82 (99) 97 03/14/18 18:00 73 03/14/18 16:14 98 35 03/14/18 16:00 73 03/14/18 16:00 98.3 74 27 133/75 (94) 97 03/14/18 16:00 40 03/14/18 14:00 74 03/14/18 12:00 40 03/14/18 12:00 74 03/14/18 12:00 98.3 75 28 142/80 (100) 100 03/14/18 11:28 100 35 (Alana Petty) -: 03/15/18 0836 03/15/18 0836 Tubes & Lines: Foster (Alana Petty) Physical Exam General Appearance: No Acute Distress, Obese Appearance Remarks intubated and sedated (Alana Petty) Pulmonary Resp Exam: Breath Sounds Equal, No Distress, Decreased Bases Resp Remarks intubated (Alana Petty) Cardiology CV Exam: Regular (Alana Petty) Gastrointestinal/Abdomen GI Exam: Soft, Non-Tender GI Remarks large (Alana Petty) Genitourinary Exam: Flank Non-Tender (Alnaa Petty) Integumentary Skin Exam: Clear, Warm (Alana Petty) Extremeties Extremities Exam: Moderate Edema, Pitting Edema, Dependent Edema (Alana Petty) Neurologic Neuro Exam: Sedated (Alana Petty) Assessment/Plan Discussed Condition With: Patient Problem List: (1) CHRISTAL (acute kidney injury) ICD Codes: N17.9 - Acute kidney failure, unspecified Plan: Acute Kidney injury possible related to ATN. CKD possibly related to HTN or renovascular disease. Creatinine remains stable. Plan Continue Lasix 40 mg daily Continue metolazone Maintain indwelling catheter for accurate I+O and diuresis Continue to follow the urine output and BMP (2) Hyperkalemia ICD Codes: E87.5 - Hyperkalemia Status: Acute Plan: Resolved (3) UTI (urinary tract infection) ICD Codes: N39.0 - Urinary tract infection, site not specified Status: Acute Plan: resolved (Alana Petty) Problem List: (1) CHRISTAL (acute kidney injury) ICD Codes: N17.9 - Acute kidney failure, unspecified Plan: Acute Kidney injury possible related to ATN. CKD possibly related to HTN or renovascular disease. Creatinine remains stable. Plan Continue Lasix 40 mg daily Continue metolazone Maintain indwelling catheter for accurate I+O and diuresis Continue to follow the urine output and BMP. Patient seen and examined, agree with above. Continue diuretics. (2) Hyperkalemia ICD Codes: E87.5 - Hyperkalemia Status: Acute Plan: Resolved (3) UTI (urinary tract infection) ICD Codes: N39.0 - Urinary tract infection, site not specified Status: Acute Plan: resolved (Mike Quesada MD) Problem Qualifiers (1) UTI (urinary tract infection): Qualified Codes: N39.0 - Urinary tract infection, site not specified Alana Petty Mar 15, 2018 10:31 Mike Quesada MD Mar 15, 2018 18:31
--- NOTE | 2018-03-15 12:31 | HHI.CCPN ---
Subjective Remarks/Hospital Course This is a 67-year-old male with a PMH of Morbid Obesity, Prostate CA, HTN, Hyperlipidemia, COPD, Gout, CHF (Echo 09/29/2017 w/ EF 50-55%) who presented to the ER w/ complaints of generalized weakness and bilateral lower extremity pain x1 day. States he ran out of his medications approx 3wks ago, has noticed worsening weakness, unable to pull himself out of bed today. Notes chronic lower extremity wounds for approx 1 year, now w/ worsening drainage. Denies fever or chills. On arrival, BP 148/71, HR 60, O2 sat 98% on 2L NC, Afebrile. WBC normal. K+ 6.8. Creatinine 1.93, previously one-point 03/03 and 09/30/17. Troponin negative. INR 1.1. UA positive UTI. CXR pulmonary venous congestion , early pulmonary edema. S/p Insulin, D50, Ca and Kayexalate in ER. Dr. Quesada consulted for CHRISTAL and Hyperkalemia. S/p Rocephin for UTI 03/01: Continued CO2 retention and respiratory acidosis incompatible with survival despite BiPAP. Brought emergently to CVICU where I met him on his arrival. CXR and exam reveal fluid overload and new RLL infiltrate. Intubated immediately, central line placed and CVP 27 mm Hg. Started on milrinone and lasix gtt infusion. 03/02 remains intubated heavily sedated for ventilator synchrony. Remains on milrinone at 0.375, amylase against fusion at 10 mg/h. CVP has improved to 15. UO 2L in 24 hours 03/03: Remains intubated sedated, remains on high vent requirement with PEEP of 10 FiO2 60% oxygen saturation hardly above 90. Remains on milrinone infusion and Lasix infusion. Urine output 2.6L in 24 hours 03/04: Remains intubated, on sedation hold patient is able to follow commands. Critically ill but stabilizing. FiO2 requirement of 60% but saturation is 97% will attempt wean. Initiate Tyson Trac monitoring wean milrinone as tolerated. Creatinine 2.3 urine output 2.5 L in 24 hours. ABG shows acidemia. One amp of bicarb, increase respiratory rate to 20 6: Remains on PC/AC -changed to PRVC. FiO2 reduced to 45%, from 50%. UO 3.3 L in 24 hours. Had brief episode of V. tach yesterday currently off milrinone. Creat slightly improved to 2.28. 03/06: remains intubated and critically ill. net -3L/24h. still very volume overloaded on exam. CVP 21. 4/8: Afebrile. Excellent diuresis overnight currently on furosemide 40 mg IV every 8 hours. Creatinine down to less than 2. Arousable on the ventilator and follows commands. PEEP still at 8. 03/08: T-max 100.7. One level 35 cm. Sodium is elevated 147. Will cut back on diuresis. Will attempt PSV trial today. Positive BM 03/09: Afebrile. Currently on propofol drip at 25 mcg/kg/min. Tolerated CPAP trial 1 hours yesterday. Decreasing PEEP from 7-6 today. Diuresis -2 L overnight. Positive BM. 03/10: Afebrile. Remains on propofol drip at 25 mcg/kg/min. Tolerated 2 sessions of CPAP trials 2 yesterday. Decreasing PEEP to 6-5 today. Around 800 cc diuresis overnight. 03/11: Afebrile. Chest x-ray significantly improved. Tolerated CPAP trial 1.5 hours yesterday. Tolerating tube feeding. Positive BM. 03/12: Afebrile. Listed on CPAP trial from 07 30-4000. We will repeat later on today. Excellent diuresis continues. Chest x-ray essentially cleared. Positive BM. C. difficile -03/09. Subjective 03/13: Afebrile. Again lasted from 0730- 1430 yesterday on PSV trial. Tolerating tube feeding. Propofol drip and 50 mg/kg/min. Excellent diuresis continues. 03/14: Late entry note, patient seen at 10:30 AM. Patient tolerated CPAP trials for approximately 12 hours yesterday. Patient currently on propofol at 10 mics per kilo per minute. Patient awake responsive nodding yes and no questions. Plan to continue CPAP trials as long as clinical only tolerrated to include throughout the night. 03/15: Afebrile. SPT parameters met today the patient remains n.p.o. plan for extubation this a.m.. Patient is alert and responding to yes and no questions. Ammonia level still slightly elevated we will continue lactulose. Objective Vital Signs Date Time Temp Pulse Resp B/P (MAP) Pulse Ox O2 Delivery O2 Flow Rate FiO2 03/15/18 11:52 100 30 03/15/18 07:52 97.1 78 17 140/80 (100) Intake and Output 03/15/18 03/15/18 03/16/18 08:00 16:00 00:00 Intake Total 805 ml 18 ml Output Total 1100 ml Balance -295 ml 18 ml Result Diagram: 03/15/18 0836 03/15/18 0836 Other Results Laboratory Tests Test 03/15/18 05:00 Blood Gas Puncture Site RT RADIAL Blood Gas Patient Temperature 98.6 Blood Gas HCO3 25 mmol/L (22-26) Blood Gas Base Excess 0.3 mmol/L (-2-2) Blood Gas Oxygen Saturation 89 % (90-100) Arterial Blood pH 7.36 (7.380-7.420) Arterial Blood Partial Pressure CO2 46 mmHg (38-42) Arterial Blood Partial Pressure O2 68 mmHg (61-120) Arterial Blood Oxygen Content 13.1 Vol % (12.0-20.0) Arterial Blood Carboxyhemoglobin 1.0 % (0-4) Arterial Blood Methemoglobin 1.6 % (0-2) Blood Gas Hemoglobin 10.4 G/DL (12.0-16.0) Oxygen Delivery Device VENTILATOR Blood Gas Ventilator Setting CPAP PEEP 5/PS 15 Blood Gas Inspired Oxygen 30 % Imaging Last Impressions Chest X-Ray 03/12/18 0600 Signed Impressions: Service Date/Time: Monday, March 12, 2018 04:31 - CONCLUSION: Interval Central line removal. Otherwise stable chest Armond Ybarra MD Renal Ultrasound 02/26/18 0000 Signed Impressions: Service Date/Time: Monday, February 26, 2018 14:30 - CONCLUSION: Stable exam; no evidence of hydronephrosis. Raf Mosqueda MD Objective Remarks GEN: 67-year-old -[place] male with elevated BMI currently resting in bed in no acute distress, nodding head to yes and no questions Head: AT/NC ENT/Neck: airway widely patent. Orotracheally intubated Lungs: Diminished breath sounds throughout. No wheezing appreciated Heart: RRR. S1, S2 predose for without murmur Abdomen: morbidly obese, soft, nondistended, no guarding or tenderness. Extremities: anasarca. 3+ pitting edema bilateral upper and lower extremities. Chronic elephantiasis nostras Neuro: Moves 4 limbs to stimulation. Withdraws to pain. Follows simple commands on propofol drip at 10 mcg/kg/min. pupils are about 3 mm bilaterally and reactive Date of Insertion: Mar 01, 2018 Line: Central Venous Catheter Side: Left Location: Subclavian A/P Problem List: (1) Acute hypoxemic respiratory failure ICD Code: J96.01 - Acute respiratory failure with hypoxia (2) Hypercapnic respiratory failure ICD Code: J96.92 - Respiratory failure, unspecified with hypercapnia (3) CHF (congestive heart failure) ICD Code: I50.9 - Heart failure, unspecified Status: Acute (4) Pneumonia ICD Code: J18.9 - Pneumonia, unspecified organism (5) [id number] kidney injury ICD Code: N17.9 - Acute kidney failure, unspecified; N18.9 - Chronic kidney disease, unspecified Status: Acute (6) Hyperkalemia ICD Code: E87.5 - Hyperkalemia Status: Acute (7) Morbid obesity ICD Code: E66.01 - Morbid (severe) obesity due to excess calories Status: Chronic (8) CHF (congestive heart failure) ICD Code: I50.9 - Heart failure, unspecified Assessment and Plan NEURO/PSYCH: Acute toxic metabolic encephalopathy Patient is currently on propofol drip at 10 mcg/kg/min for sedation while intubated, to maintain ventilator synchrony Goal of RASS -2 Daily sedation vacation As needed fentanyl 50 mcg every 1 hour as needed breakthrough pain See GI for hyperammonemia workup Acetaminophen 650 mg every 6 hours as needed fever RESP: Acute hypoxic respiratory failure Community-acquired pneumonia present on admission [facility] 16/600/1.25/5/40 Ventilator bundle Albuterol/ipratropium aerosols every 6 hours with albuterol aerosols every 2 hours as needed dyspnea Budesonide 0.5/2 1 inhalation twice daily Home medications include budesonide/formoterol 160/4.5 2 puffs twice daily and albuterol every 6 hours as needed Spontaneous breathing trials as clinically indicated. SPT FVC 1.3L, NIF -25, RSBI 28, positive cuff leak plan for extubation, on to BiPAP CV: Acute diastolic heart failure Severe TR -very poor candidate for replacement Hypertension 2D echocardiogram 09/15 revealed ejection fraction 50-55%. Right atrial dilatation. LVH. Severe TR. Home medications include metoprolol tartrate 25 mg twice daily and amlodipine 10 mg p.o. daily Metoprolol for tachycardia As needed hydralazine/Nitropaste for hypertension 2D limited echocardiogram Normal left ventricular size. Wall thickness is measured at the upper limits of normal. The left ventricular systolic function is low normal with an estimated ejection fraction of 50%. No definite regional wall motion abnormalities. There is mild tricuspid regurgitation. The estimated pulmonary arterial pressure is 50 mmHg. Continue diuresis with furosemide 40 mg IV daily with metolazone 2.5 milligrams daily Monitor for dysrhythmias. GI: Hypoalbuminemia Hyperammonemia Gastroesophageal reflux disease Tube feeds on hold for planned extubation- Nepro tube feeds goal 45 cc an hour per nutrition's recommendations Lansoprazole 30 mg daily for GI prophylaxis. On omeprazole 40 mg daily at home Docusate sodium/senna 1 tablet twice daily for bowel regimen Currently on lactulose 30 cc daily and Xifaxan 400 mg every 8 hours. 03/08. 03/14 Ammonia level 35->34. Lactulose 30 mL/day Renal/: Acute kidney injury in setting of chronic kidney disease. ? ATN versus vascular congestion versus shock Followed by nephrology Currently on furosemide 40 mg IV daily and metolazone 2.5 mg daily continue Foster today given active diuresis. Cr continues to improve currently 1.69 Renal ultrasound revealed no hydronephrosis Home medications include bumetanide 1 mg daily and metolazone 5 mg daily ENDO: Hyperglycemia of critical illness SSI for euglycemia Novolin R with Accu-Cheks every 6 hours to maintain euglycemia/low regimen TSH 1.4 HEME: Macrocytic anemia CBC daily. Monitor trends Does not meet transfusion threshold at this time ID: Community acquired pneumonia Completed therapy ceftriaxone 1 g IV daily 02/25 until 03/11 Pertinent cultures 03/08 -blood sputum and urine all no growth to date 03/01 -sputum culture negative to date, 02/25 -urine culture -gram-positive edison likely contaminant continue abx as ordered. Influenza A and B-negative FEN: Hypernatremia Replace electrolytes as clinically indicated Free water 200 cc every 6 hours MSK: Elevated BMI of 58.3 Osteoarthritis/osteoporosis Weight loss encouraged Continue ergocalciferol 50,000 units every 7 days when indicated PT evaluate and treat Access -Left subclavian CVL placed 03/01/18 discontinued 03/11 -Left radial arterial line placed 03/01/18 -discontinue 03/07 Prophylaxis -GI -lansoprazole -DVT -SCD/heparin Level 2 follow-up Discussed with STOCK PULLER at bedside ([place]) Physician Germania Greene Problem Qualifiers (1) Hypercapnic respiratory failure: Qualified Codes: J96.22 - Acute and chronic respiratory failure with hypercapnia (2) CHF (congestive heart failure): Qualified Codes: I50.23 - Acute on chronic systolic (congestive) heart failure (3) Pneumonia: Germania Greene MD Mar 15, 2018 12:31
[2018-03-15] MEDS ORDERED: VANCOMYCIN INJ 2,000 MG in SODIUM CHLORID 0.9% 500 ML INJ 500 ML IV ONE (15:00)
[2018-03-15] MEDS: RESP: ALBUTEROL 2.5 MG/3 ML NEB (PRN) NEB (20:53)
[2018-03-16] VITALS (23 sets, daily range): BP systolic 123–147; BP diastolic 61–88; PULSE 76–91; RESP 19–36; TEMP 97.6–99.7; O2SAT 93–100
[2018-03-16 05:06] LABS: HEMATOCRIT 32.5 % (39.0-51.0); HEMOGLOBIN 10.3 GM/DL (13.0-17.0); MEAN CELL VOLUME 98.9 FL (80.0-100.0); MEAN CORPUSCULAR HEMOGLOBIN 31.4 PG (27.0-34.0); MEAN CORPUSCULAR HGB CONC 31.8 % (32.0-36.0); PLATELET COUNT 240 TH/MM3 (150-450); RED BLOOD COUNT 3.28 MIL/MM3 (4.50-5.90); RED CELL DISTRIBUTION WIDTH 14.6 % (11.6-17.2); WHITE BLOOD COUNT 9.1 TH/MM3 (4.0-11.0)
[2018-03-16 05:11] LABS: BICARBONATE 26.6 MEQ/L (21.0-32.0); CREATININE 1.72 MG/DL (0.60-1.30); MAGNESIUM 2.3 MG/DL (1.5-2.5); PHOSPHORUS 3.9 MG/DL (2.5-4.9); RANDOM VANCOMYCIN 31.8 COMMENT
[2018-03-16] MEDS: INSULIN NovoLIN REGULAR SUPPLEMENTAL SCALE SQ SCH ×5 (06:00→23:15)
[2018-03-16] MEDS: ARTIFICIAL TEARS OPTH SOLN 15 ML BTL EACH EYE SCH (06:00)
[2018-03-16] MEDS: FREE WATER G-TUBE SCH ×2 (06:00→08:46)
[2018-03-16] MEDS: HEPARIN SODIUM - SQ 10,000 UNITS/ML VIAL SQ SCH ×3 (06:13→21:46)
[2018-03-16] MEDS: CHLORHEXIDINE 0.12% (ORAL KIT) 15 ML CUP MT SCH ×2 (08:00→20:00)
[2018-03-16] MEDS: RESP: BUDESONIDE 0.5 MG/2 ML NEB NEB SCH ×2 (08:07→21:01)
[2018-03-16] MEDS: RESP: ALBUTEROL 2.5 MG/3 ML NEB (PRN) NEB ×2 (08:07→21:01)
[2018-03-16] MEDS: LACTULOSE SYRUP 20 GM/30 ML CUP PO SCH (08:44)
[2018-03-16] MEDS: FUROSEMIDE 40 MG/4 ML VIAL IV PUSH SCH (08:45)
[2018-03-16] MEDS: SODIUM CHLORIDE 0.9% FLUSH 10 ML FLUSH IV FLUSH SCH ×2 (08:45→21:45)
[2018-03-16] MEDS: METOLAZONE 2.5 MG TAB PO SCH (08:45)
[2018-03-16] MEDS: METOPROLOL TARTRATE 25 MG TAB PO SCH ×2 (08:45→20:06)
[2018-03-16] MEDS: LANSOPRAZOLE SOLUTAB 30 MG TAB NG SCH (08:45)
[2018-03-16] MEDS: DOCUSATE SODIUM 50 MG/SENNA 8.6 MG TAB PO SCH ×2 (08:46→20:06)
--- NOTE | 2018-03-16 09:31 | HHI.CCPN ---
Subjective Remarks/Hospital Course This is a 67-year-old male with a PMH of Morbid Obesity, Prostate CA, HTN, Hyperlipidemia, COPD, Gout, CHF (Echo 09/29/2017 w/ EF 50-55%) who presented to the ER w/ complaints of generalized weakness and bilateral lower extremity pain x1 day. States he ran out of his medications approx 3wks ago, has noticed worsening weakness, unable to pull himself out of bed today. Notes chronic lower extremity wounds for approx 1 year, now w/ worsening drainage. Denies fever or chills. On arrival, BP 148/71, HR 60, O2 sat 98% on 2L NC, Afebrile. WBC normal. K+ 6.8. Creatinine 1.93, previously one-point 03/03 and 09/30/17. Troponin negative. INR 1.1. UA positive UTI. CXR pulmonary venous congestion , early pulmonary edema. S/p Insulin, D50, Ca and Kayexalate in ER. Dr. Quesada consulted for CHRISTAL and Hyperkalemia. S/p Rocephin for UTI 03/01: Continued CO2 retention and respiratory acidosis incompatible with survival despite BiPAP. Brought emergently to CVICU where I met him on his arrival. CXR and exam reveal fluid overload and new RLL infiltrate. Intubated immediately, central line placed and CVP 27 mm Hg. Started on milrinone and lasix gtt infusion. 03/02 remains intubated heavily sedated for ventilator synchrony. Remains on milrinone at 0.375, amylase against fusion at 10 mg/h. CVP has improved to 15. UO 2L in 24 hours 03/03: Remains intubated sedated, remains on high vent requirement with PEEP of 10 FiO2 60% oxygen saturation hardly above 90. Remains on milrinone infusion and Lasix infusion. Urine output 2.6L in 24 hours 03/04: Remains intubated, on sedation hold patient is able to follow commands. Critically ill but stabilizing. FiO2 requirement of 60% but saturation is 97% will attempt wean. Initiate Tyson Trac monitoring wean milrinone as tolerated. Creatinine 2.3 urine output 2.5 L in 24 hours. ABG shows acidemia. One amp of bicarb, increase respiratory rate to 20 6: Remains on PC/AC -changed to PRVC. FiO2 reduced to 45%, from 50%. UO 3.3 L in 24 hours. Had brief episode of V. tach yesterday currently off milrinone. Creat slightly improved to 2.28. 03/06: remains intubated and critically ill. net -3L/24h. still very volume overloaded on exam. CVP 21. 4/8: Afebrile. Excellent diuresis overnight currently on furosemide 40 mg IV every 8 hours. Creatinine down to less than 2. Arousable on the ventilator and follows commands. PEEP still at 8. 03/08: T-max 100.7. One level 35 cm. Sodium is elevated 147. Will cut back on diuresis. Will attempt PSV trial today. Positive BM 03/09: Afebrile. Currently on propofol drip at 25 mcg/kg/min. Tolerated CPAP trial 1 hours yesterday. Decreasing PEEP from 7-6 today. Diuresis -2 L overnight. Positive BM. 03/10: Afebrile. Remains on propofol drip at 25 mcg/kg/min. Tolerated 2 sessions of CPAP trials 2 yesterday. Decreasing PEEP to 6-5 today. Around 800 cc diuresis overnight. 03/11: Afebrile. Chest x-ray significantly improved. Tolerated CPAP trial 1.5 hours yesterday. Tolerating tube feeding. Positive BM. 03/12: Afebrile. Listed on CPAP trial from 07 30-4000. We will repeat later on today. Excellent diuresis continues. Chest x-ray essentially cleared. Positive BM. C. difficile -03/09. Subjective 03/13: Afebrile. Again lasted from 0730- 1430 yesterday on PSV trial. Tolerating tube feeding. Propofol drip and 50 mg/kg/min. Excellent diuresis continues. 03/14: Late entry note, patient seen at 10:30 AM. Patient tolerated CPAP trials for approximately 12 hours yesterday. Patient currently on propofol at 10 mics per kilo per minute. Patient awake responsive nodding yes and no questions. Plan to continue CPAP trials as long as clinical only tolerrated to include throughout the night. 03/15: Afebrile. SPT parameters met today the patient remains n.p.o. plan for extubation this a.m.. Patient is alert and responding to yes and no questions. Ammonia level still slightly elevated we will continue lactulose. 03/16: Patient successfully extubated yesterday. Patient awake alert oriented tolerated BiPAP throughout the night O2 saturation remains 100% on 2 L/min patient's diet advanced to clear liquid patient slightly lethargic this a.m. we will obtain a formal swallow and advance diet. Hemodynamically stable. Objective Vital Signs Date Time Temp Pulse Resp B/P (MAP) Pulse Ox O2 Delivery O2 Flow Rate FiO2 03/16/18 08:10 100 Nasal Cannula 3.00 03/16/18 08:00 99.7 84 36 147/88 (107) 03/16/18 04:45 35 Intake and Output 03/16/18 03/16/18 03/17/18 08:00 16:00 00:00 Intake Total 480 ml Output Total 1900 ml Balance -1420 ml Result Diagram: 03/16/18 0420 03/16/18 0420 Imaging Last Impressions Chest X-Ray 03/12/18 0600 Signed Impressions: Service Date/Time: Monday, March 12, 2018 04:31 - CONCLUSION: Interval Central line removal. Otherwise stable chest Armond Ybarra MD Renal Ultrasound 02/26/18 0000 Signed Impressions: Service Date/Time: Monday, February 26, 2018 14:30 - CONCLUSION: Stable exam; no evidence of hydronephrosis. Raf Mosqueda MD Objective Remarks GEN: 67-year-old -[place] male with elevated BMI currently resting in bed in no acute distress, awake and alert answering questions Head: Normocephalic ENT/Neck: Unable to assess JVD secondary to elevated BMI. Lungs: Diminished breath sounds throughout. No wheezing appreciated. Currently nasal cannula 2 L/min 100% O2 sat Heart: RRR. S1, S2 predose for without murmur Abdomen: morbidly obese, soft, nondistended, no guarding or tenderness. Bowel sounds active Extremities: anasarca. 3+ pitting edema bilateral upper and lower extremities. Chronic elephantiasis nostras Neuro: GCS 15. Moves extremities 4 to commands. Date of Insertion: Mar 01, 2018 Line: Central Venous Catheter Side: Left Location: Subclavian A/P Problem List: (1) Acute hypoxemic respiratory failure ICD Code: J96.01 - Acute respiratory failure with hypoxia (2) Hypercapnic respiratory failure ICD Code: J96.92 - Respiratory failure, unspecified with hypercapnia (3) CHF (congestive heart failure) ICD Code: I50.9 - Heart failure, unspecified Status: Acute (4) Pneumonia ICD Code: J18.9 - Pneumonia, unspecified organism (5) Agfms-uw-xobcgoj kidney injury ICD Code: N17.9 - Acute kidney failure, unspecified; N18.9 - Chronic kidney disease, unspecified Status: Acute (6) Hyperkalemia ICD Code: E87.5 - Hyperkalemia Status: Acute (7) Morbid obesity ICD Code: E66.01 - Morbid (severe) obesity due to excess calories Status: Chronic (8) CHF (congestive heart failure) ICD Code: I50.9 - Heart failure, unspecified Assessment and Plan NEURO/PSYCH: Acute toxic metabolic encephalopathy-resolved RASS 0 Avoid sedative type medication See GI for hyperammonemia workup Acetaminophen 650 mg every 6 hours as needed fever RESP: Acute hypoxic respiratory failure Community-acquired pneumonia present on admission Maintain BiPAP at night Currently O2 at 2 L visa via nasal cannula continue to wean O2 saturation 100% Albuterol/ipratropium aerosols every 6 hours with albuterol aerosols every 2 hours as needed dyspnea Budesonide 0.5/2 1 inhalation twice daily Home medications include budesonide/formoterol 160/4.5 2 puffs twice daily and albuterol every 6 hours as needed 03/15 Extubation CV: Acute diastolic heart failure Severe TR -very poor candidate for replacement Hypertension 2D echocardiogram 09/15 revealed ejection fraction 50-55%. Right atrial dilatation. LVH. Severe TR. Home medications include metoprolol tartrate 25 mg twice daily and amlodipine 10 mg p.o. daily Metoprolol for tachycardia As needed hydralazine/Nitropaste for hypertension 2D limited echocardiogram Normal left ventricular size. Wall thickness is measured at the upper limits of normal. The left ventricular systolic function is low normal with an estimated ejection fraction of 50%. No definite regional wall motion abnormalities. There is mild tricuspid regurgitation. The estimated pulmonary arterial pressure is 50 mmHg. Continue diuresis with furosemide 40 mg IV daily with metolazone 2.5 milligrams daily Monitor for dysrhythmias. GI: Hypoalbuminemia Hyperammonemia Gastroesophageal reflux disease Tube feeds on hold for planned extubation- Nepro tube feeds goal 45 cc an hour per nutrition's recommendations Lansoprazole 30 mg daily for GI prophylaxis. On omeprazole 40 mg daily at home Docusate sodium/senna 1 tablet twice daily for bowel regimen Was on lactulose 30 cc daily and Xifaxan 400 mg every 8 hours. 03/08. 03/14 Ammonia level 35->34. Continue lactulose 30 mL/day Renal/: Acute kidney injury in setting of chronic kidney disease. ? ATN versus vascular congestion versus shock Followed by nephrology Currently on furosemide 40 mg IV daily and metolazone 2.5 mg daily continue Foster today given active diuresis. Cr continues to improve currently 1.69 Renal ultrasound revealed no hydronephrosis Home medications include bumetanide 1 mg daily and metolazone 5 mg daily ENDO: Hyperglycemia of critical illness SSI for euglycemia Novolin R with Accu-Cheks every 6 hours to maintain euglycemia/low regimen TSH 1.4 HEME: Macrocytic anemia CBC daily. Monitor trends Does not meet transfusion threshold at this time ID: Community acquired pneumonia Completed therapy ceftriaxone 1 g IV daily 02/25 until 03/11 Pertinent cultures 03/08 -blood sputum and urine all no growth to date 03/01 -sputum culture negative to date, 02/25 -urine culture -gram-positive edison likely contaminant continue abx as ordered. Influenza A and B-negative FEN: Hypernatremia-resolved Replace electrolytes as clinically indicated Free water 200 cc every 6 hours-discontinue MSK: Elevated BMI of 58.3 Osteoarthritis/osteoporosis Weight loss encouraged Continue ergocalciferol 50,000 units every 7 days when indicated PT evaluate and treat Access -Left subclavian CVL placed 03/01/18 discontinued 03/11 -Left radial arterial line placed 03/01/18 -discontinued 03/07 Prophylaxis -GI -lansoprazole -DVT -SCD/heparin Level 2 follow-up Discussed with NEURODIAGNOSTIC TECHNOLOGIST at bedside (Yoana) plan transferred to [facility] in a.m. plan transfer to medical surgical floor when bed becomes available Physician Germania Greene Problem Qualifiers (1) Hypercapnic respiratory failure: Qualified Codes: J96.22 - Acute and chronic respiratory failure with hypercapnia (2) CHF (congestive heart failure): Qualified Codes: I50.23 - Acute on chronic systolic (congestive) heart failure (3) Pneumonia: Germania Greene MD Mar 16, 2018 09:30
--- NOTE | 2018-03-16 09:59 | HHI.NPPN ---
Subjective General Problems: Edema, Hypertension Renal Failure: Chronic, Acute History of Present Illness This is a 67-year-old male with a past medical history of hypertension, hyperlipidemia, chronic kidney disease, history of acute kidney injury, congestive heart failure, chronic obstructive pulmonary disease, history of lymphedema of the leg, morbid obesity, came to the hospital with generalized weakness. Nephrology was called to see the patient because of very high BUN and creatinine and high potassium. The patient has a history of chronic kidney disease and he has recurrent acute kidney injury. The patient now came with a creatinine of 1.9 and a potassium of 6.8. The patient previously has creatinine in the range of 1.4-1.5 most of the time, and he had acute kidney injury in April of last year where the creatinine went up to 3.8. He is not following with any supervisor blast furnace according to him on a regular basis. The patient is not a very good historian. Most of the history was taken from patient's chart and some from the patient himself. According to him, he was feeling weak and tired, and he has worsening shortness of breath and he came to the hospital. He denies taking any nonsteroid anti- inflammatory drugs. He denies taking any diuretics. He has this swelling in the legs and he has wound in both legs, for which, according to him, he is doing the dressing by himself. There is no documentation of any antibiotics for him. Additional Remarks Patient is extubated on O2 3 liters. Denies shortness of breath. Has upper extremity edema. (Alana Petty) Review of Systems Respiratory Respiratory Remarks Denies any SOB (Alana Petty) Cardiovascular Cardiac Remarks Denies any CP (Alana Petty) Objective Data Data Vital Signs Date Time Temp Pulse Resp B/P (MAP) Pulse Ox O2 Delivery O2 Flow Rate FiO2 03/16/18 08:10 100 Nasal Cannula 3.00 03/16/18 08:00 99.7 84 36 147/88 (107) 100 03/16/18 08:00 84 03/16/18 07:00 83 03/16/18 07:00 99 Nasal Cannula 2.00 03/16/18 06:00 88 03/16/18 04:45 100 35 03/16/18 04:00 90 03/16/18 04:00 98.0 87 25 100 03/16/18 03:00 85 20 135/79 (97) 99 03/16/18 02:00 83 03/16/18 02:00 90 24 144/83 (103) 100 03/16/18 01:00 90 35 134/86 (102) 100 03/16/18 00:35 100 35 03/16/18 00:00 89 22 139/74 (95) 100 03/16/18 00:00 91 03/15/18 22:00 88 24 158/86 (110) 100 03/15/18 22:00 87 03/15/18 21:02 100 35 03/15/18 21:00 100 Bi-Pap 35 03/15/18 21:00 87 30 144/83 (103) 100 03/15/18 20:54 100 Nasal Cannula 3.00 03/15/18 20:00 87 03/15/18 20:00 97.8 90 43 146/80 (102) 100 03/15/18 18:00 84 03/15/18 18:00 84 34 145/78 (100) 100 03/15/18 17:00 84 26 148/86 (106) 100 03/15/18 16:27 100 35 03/15/18 16:00 97.6 82 44 144/84 (104) 100 03/15/18 16:00 82 03/15/18 15:00 81 30 150/81 (104) 100 03/15/18 14:00 83 03/15/18 14:00 83 26 153/79 (103) 100 03/15/18 13:00 83 20 160/86 (110) 100 03/15/18 12:50 100 35 03/15/18 12:45 100 BiPAP/CPAP 35 03/15/18 12:00 35 03/15/18 12:00 80 03/15/18 12:00 97.4 80 30 128/77 (94) 99 03/15/18 11:52 100 30 03/15/18 11:00 81 19 141/84 (103) 100 03/15/18 10:00 80 03/15/18 10:00 80 14 144/71 (95) 100 (Alana Petty) -: 03/16/18 0420 03/16/18 0420 Imaging Last Impressions Chest X-Ray 03/15/18 0600 Signed Impressions: Service Date/Time: Thursday, March 15, 2018 03:19 - CONCLUSION: No significant change. Armond Roman MD Lower Extremity Ultrasound 03/13/18 0000 Signed Impressions: Service Date/Time: Tuesday, March 13, 2018 09:26 - CONCLUSION: Limited by body habitus, negative for DVT.. Alex Trejo MD FACR Renal Ultrasound 02/26/18 0000 Signed Impressions: Service Date/Time: Monday, February 26, 2018 14:30 - CONCLUSION: Stable exam; no evidence of hydronephrosis. Raf Mosqueda MD Tubes & Lines: Foster (Alana Petty M. [employer]) Physical Exam General Appearance: No Acute Distress, Obese (Alayna Pettyne M. [employer]) Pulmonary Resp Exam: Breath Sounds Equal, No Distress, Rhonchi, Decreased Bases (Alayna Pettyne M. [employer]) Cardiology CV Exam: Regular (Alana Petty. [employer]ING[employer]) Gastrointestinal/Abdomen GI Exam: Soft, Non-Tender GI Remarks large (Jay JaylerAlayna narvaezne M. [employer]) Genitourinary Exam: Flank Non-Tender (Alayna Pettyne M. [employer]) Integumentary Skin Exam: Clear, Warm (Alayna Pettyne M. [employer]) Extremeties Extremities Exam: Moderate Edema, Pitting Edema, Dependent Edema (Jay JaylerbriceAlana M. [employer]) Neurologic Neuro Exam: Alert, Awake, Oriented, Sedated (Alayna Pettyne M. [employer]) Psychiatric Psych Exam: Appropriate Responses (Alayna Pettyne M. [employer]) Assessment/Plan Discussed Condition With: Patient Problem List: (1) CHRISTAL (acute kidney injury) ICD Codes: N17.9 - Acute kidney failure, unspecified Plan: Acute Kidney injury possible related to ATN. CKD possibly related to HTN or renovascular disease. Creatinine remains stable. Plan Continue Lasix 40 mg daily Continue metolazone Continue to follow the urine output and BMP. (2) Hyperkalemia ICD Codes: E87.5 - Hyperkalemia Status: Acute Plan: Resolved (3) UTI (urinary tract infection) ICD Codes: N39.0 - Urinary tract infection, site not specified Status: Acute Plan: resolved (Alana Petty) Problem List: (1) CHRISTAL (acute kidney injury) ICD Codes: N17.9 - Acute kidney failure, unspecified Plan: Acute Kidney injury possible related to ATN. CKD possibly related to HTN or renovascular disease. Creatinine remains stable. Plan Continue Lasix 40 mg daily Continue metolazone Continue to follow the urine output and BMP. Patient seen and examined, agree with above. Continue diuretics, Creatinine is stable. (2) Hyperkalemia ICD Codes: E87.5 - Hyperkalemia Status: Acute Plan: Resolved (3) UTI (urinary tract infection) ICD Codes: N39.0 - Urinary tract infection, site not specified Status: Acute Plan: resolved (Mike Quesada MD) Problem Qualifiers (1) UTI (urinary tract infection): Qualified Codes: N39.0 - Urinary tract infection, site not specified Alana Petty Mar 16, 2018 09:59 Mike Quesada MD Mar 18, 2018 09:49
[2018-03-16] MEDS ORDERED: MORPHINE SULFATE 4 MG/ML INJ IV PUSH PRN (19:30)
[2018-03-16] MEDS ORDERED: ACETAMINOPHEN 325 MG TAB PO PRN (19:30)
[2018-03-16] MEDS: ACETAMINOPHEN/HYDROcodone 325 MG/5 MG TAB PO PRN (20:07)
[2018-03-16] MEDS: MORPHINE SULFATE 2 MG/ML SYRINGE IV PUSH PRN (21:47)
[2018-03-17] VITALS (9 sets, daily range): BP systolic 134–158; BP diastolic 72–79; PULSE 87–100; RESP 16–20; TEMP 97.6–98.8; O2SAT 90–99
[2018-03-17] MEDS: INSULIN NovoLIN REGULAR SUPPLEMENTAL SCALE SQ SCH ×4 (05:47→22:42)
[2018-03-17] MEDS: HEPARIN SODIUM - SQ 10,000 UNITS/ML VIAL SQ SCH ×3 (05:47→22:36)
[2018-03-17] MEDS: CHLORHEXIDINE 0.12% (ORAL KIT) 15 ML CUP MT SCH ×2 (08:00→20:00)
[2018-03-17] MEDS: RESP: BUDESONIDE 0.5 MG/2 ML NEB NEB SCH ×2 (08:00→19:38)
[2018-03-17] MEDS: RESP: ALBUTEROL 2.5 MG/3 ML NEB (PRN) NEB (08:13)
--- NOTE | 2018-03-17 09:11 | HHI.NPPN ---
Subjective General Problems: Edema, Hypertension Renal Failure: Chronic, Acute History of Present Illness This is a 67-year-old male with a past medical history of hypertension, hyperlipidemia, chronic kidney disease, history of acute kidney injury, congestive heart failure, chronic obstructive pulmonary disease, history of lymphedema of the leg, morbid obesity, came to the hospital with generalized weakness. Nephrology was called to see the patient because of very high BUN and creatinine and high potassium. The patient has a history of chronic kidney disease and he has recurrent acute kidney injury. The patient now came with a creatinine of 1.9 and a potassium of 6.8. The patient previously has creatinine in the range of 1.4-1.5 most of the time, and he had acute kidney injury in April of last year where the creatinine went up to 3.8. He is not following with any train control technician according to him on a regular basis. The patient is not a very good historian. Most of the history was taken from patient's chart and some from the patient himself. According to him, he was feeling weak and tired, and he has worsening shortness of breath and he came to the hospital. He denies taking any nonsteroid anti- inflammatory drugs. He denies taking any diuretics. He has this swelling in the legs and he has wound in both legs, for which, according to him, he is doing the dressing by himself. There is no documentation of any antibiotics for him. Additional Remarks Patient transferred to medical floor. Very weak. (Alana Petty) Review of Systems Respiratory Respiratory Remarks Denies any SOB (Alana Petty) Cardiovascular Cardiac Remarks Denies any CP (Alana Petty) Objective Data Data Vital Signs Date Time Temp Pulse Resp B/P (MAP) Pulse Ox O2 Delivery O2 Flow Rate FiO2 03/17/18 00:00 97.6 87 20 134/79 (97) 93 03/16/18 23:00 Nasal Cannula 3.00 03/16/18 22:00 87 03/16/18 21:02 100 Nasal Cannula 2.00 03/16/18 21:00 86 28 146/80 (102) 100 03/16/18 20:00 87 03/16/18 20:00 100 Nasal Cannula 2.00 03/16/18 20:00 98.5 89 24 144/79 (100) 100 03/16/18 20:00 97.6 89 20 123/69 (87) 93 03/16/18 18:00 82 03/16/18 16:00 80 03/16/18 16:00 99.0 80 28 139/75 (96) 100 03/16/18 15:00 90 03/16/18 14:00 78 03/16/18 13:00 78 03/16/18 12:00 78 03/16/18 12:00 99.5 78 19 141/61 (87) 100 03/16/18 11:00 76 03/16/18 10:00 82 (Alana Petty) -: 03/16/18 0420 03/16/18 0420 Tubes & Lines: Foster (Alana Petty) Physical Exam General Appearance: No Acute Distress, Obese (Alana Petty) Pulmonary Resp Exam: Breath Sounds Equal, No Distress, Rhonchi, Decreased Bases (Alana Petty) Cardiology CV Exam: Regular (Alana Petty) Gastrointestinal/Abdomen GI Exam: Soft, Non-Tender GI Remarks large (Alana Petty) Genitourinary Exam: Flank Non-Tender (Alana Petty) Integumentary Skin Exam: Clear, Warm (Alana Petty) Extremeties Extremities Exam: Moderate Edema, Pitting Edema, Dependent Edema (Alana Petty) Neurologic Neuro Exam: Alert, Awake, Oriented, Sedated (Alana Petty) Psychiatric Psych Exam: Appropriate Responses (Alana Petty) Assessment/Plan Discussed Condition With: Patient Problem List: (1) CHRISTAL (acute kidney injury) ICD Codes: N17.9 - Acute kidney failure, unspecified Plan: Acute Kidney injury possible related to ATN. CKD possibly related to HTN or renovascular disease. Creatinine has remained stable. Plan Continue Lasix 40 mg daily Continue metolazone Continue to follow the urine output and BMP intermittently Labs ordered for AM (2) Hyperkalemia ICD Codes: E87.5 - Hyperkalemia Status: Acute Plan: Resolved (3) UTI (urinary tract infection) ICD Codes: N39.0 - Urinary tract infection, site not specified Status: Acute Plan: resolved (Alana Petty) Problem List: (1) CHRISTAL (acute kidney injury) ICD Codes: N17.9 - Acute kidney failure, unspecified Plan: Acute Kidney injury possible related to ATN. CKD possibly related to HTN or renovascular disease. Creatinine has remained stable. Plan Continue Lasix 40 mg daily Continue metolazone Continue to follow the urine output and BMP intermittently Labs ordered for AM. Patient seen and examined, agree with above. Follow BMP and continue diuretics. (2) Hyperkalemia ICD Codes: E87.5 - Hyperkalemia Status: Acute Plan: Resolved (3) UTI (urinary tract infection) ICD Codes: N39.0 - Urinary tract infection, site not specified Status: Acute Plan: resolved (Mike Quesada MD) Problem Qualifiers (1) UTI (urinary tract infection): Qualified Codes: N39.0 - Urinary tract infection, site not specified Alana Petty Mar 17, 2018 09:11 Mike Quesada MD Mar 18, 2018 09:58
[2018-03-17] MEDS: METOPROLOL TARTRATE 25 MG TAB PO SCH ×2 (09:49→22:36)
[2018-03-17] MEDS: METOLAZONE 2.5 MG TAB PO SCH (09:49)
[2018-03-17] MEDS: DOCUSATE SODIUM 50 MG/SENNA 8.6 MG TAB PO SCH ×2 (09:49→22:36)
[2018-03-17] MEDS: LANSOPRAZOLE SOLUTAB 30 MG TAB NG SCH (09:49)
[2018-03-17] MEDS: FUROSEMIDE 40 MG/4 ML VIAL IV PUSH SCH (09:49)
[2018-03-17] MEDS: SODIUM CHLORIDE 0.9% FLUSH 10 ML FLUSH IV FLUSH SCH ×2 (09:50→22:43)
[2018-03-17] MEDS: LACTULOSE SYRUP 20 GM/30 ML CUP PO SCH (09:50)
[2018-03-17] MEDS: MORPHINE SULFATE 2 MG/ML SYRINGE IV PUSH PRN ×2 (09:55→14:13)
[2018-03-17 12:15] LABS: HEMATOCRIT 30.5 % (39.0-51.0); MEAN CELL VOLUME 96.3 FL (80.0-100.0); MEAN CORPUSCULAR HEMOGLOBIN 31.5 PG (27.0-34.0); MEAN CORPUSCULAR HGB CONC 32.7 % (32.0-36.0); MEAN PLATELET VOLUME 10.4 FL (7.0-11.0); PLATELET COUNT 246 TH/MM3 (150-450); RED BLOOD COUNT 3.17 MIL/MM3 (4.50-5.90); RED CELL DISTRIBUTION WIDTH 14.1 % (11.6-17.2); WHITE BLOOD COUNT 9.2 TH/MM3 (4.0-11.0)
[2018-03-17 12:45] LABS: BICARBONATE 27.9 MEQ/L (21.0-32.0); CALCIUM 8.9 MG/DL (8.5-10.1); CREATININE 1.86 MG/DL (0.60-1.30)
[2018-03-17 12:47] LABS: RANDOM VANCOMYCIN 24.1 COMMENT
--- NOTE | 2018-03-17 14:32 | HHI.PR ---
Subjective Remarks Follow-up respiratory failure, encephalopathy, CHF. The patient states that he does not feel well today. He reports abdominal pain. He is somnolent and falls asleep during examination. Objective Vitals Vital Signs Date Time Temp Pulse Resp B/P (MAP) Pulse Ox O2 Delivery O2 Flow Rate FiO2 03/17/18 12:00 98.0 99 19 136/77 (96) 92 03/17/18 08:00 97.6 96 17 158/72 (100) 92 03/17/18 00:00 97.6 87 20 134/79 (97) 93 03/16/18 23:00 Nasal Cannula 3.00 03/16/18 22:00 87 03/16/18 21:02 100 Nasal Cannula 2.00 03/16/18 21:00 86 28 146/80 (102) 100 03/16/18 20:00 87 03/16/18 20:00 100 Nasal Cannula 2.00 03/16/18 20:00 98.5 89 24 144/79 (100) 100 03/16/18 20:00 97.6 89 20 123/69 (87) 93 03/16/18 18:00 82 03/16/18 16:00 80 03/16/18 16:00 99.0 80 28 139/75 (96) 100 03/16/18 15:00 90 I/O 03/16/18 03/16/18 03/16/18 03/17/18 03/17/18 03/17/18 07:00 15:00 23:00 07:00 15:00 23:00 Intake Total 480 ml 900 ml 120 ml Output Total 1900 ml 2800 ml 600 ml Balance -1420 ml -1900 ml -480 ml Intake Oral 480 ml 900 ml 120 ml Output Urine Total 1200 ml 2300 ml 600 ml Stool Total 700 ml 500 ml Result Diagram: 03/17/18 1146 03/17/18 1146 Imaging Last Impressions Chest X-Ray 03/15/18 0600 Signed Impressions: Service Date/Time: Thursday, March 15, 2018 03:19 - CONCLUSION: No significant change. Armond Roman MD Lower Extremity Ultrasound 03/13/18 0000 Signed Impressions: Service Date/Time: Tuesday, March 13, 2018 09:26 - CONCLUSION: Limited by body habitus, negative for DVT.. Alex Trejo MD FACR Renal Ultrasound 02/26/18 0000 Signed Impressions: Service Date/Time: Monday, February 26, 2018 14:30 - CONCLUSION: Stable exam; no evidence of hydronephrosis. Raf Mosqueda MD Objective Remarks General: Morbidly obese male in no acute distress. Heart: Regular rate and rhythm. No murmur. Lungs: Diminished breath sounds bilaterally. Breathing is nonlabored. Abdomen: Soft, nontender, nondistended. Extremities: 3+ bilateral lower extremity edema. Lower extremities with elephantiasis. Psych: Somnolent. Neuro: Normal speech when awakened. Urinary Catheter: Yes Assessment to: Continue Foster insert reason: Prolonged Immobilization Vascular Central Line Catheter: No Date of Insertion: Mar 01, 2018 A/P Problem List: (1) Hyperkalemia ICD Code: E87.5 - Hyperkalemia Status: Acute (2) CHRISTAL (acute kidney injury) ICD Code: N17.9 - Acute kidney failure, unspecified (3) UTI (urinary tract infection) ICD Code: N39.0 - Urinary tract infection, site not specified Status: Acute (4) Generalized weakness ICD Code: R53.1 - Weakness (5) CHF (congestive heart failure) ICD Code: I50.9 - Heart failure, unspecified (6) Wound, open, leg ICD Code: S81.809A - Unspecified open wound, unspecified lower leg, initial encounter (7) Acute encephalopathy ICD Code: G93.40 - Encephalopathy, unspecified Assessment and Plan 1. Acute hypoxic respiratory failure: Continue supplemental oxygen. BiPAP at night. DuoNeb scheduled and albuterol nebs as needed. Continue Symbicort. Patient was extubated on 03/15/18. 2. Acute diastolic heart failure: 2D echocardiogram showed ejection fraction 50 -55% with right atrial dilatation, LVH, and severe tricuspid regurgitation. Continue metoprolol. 3. Community-acquired pneumonia: Present on admission. Completed course of antibiotics. 4. Hypertension: Continue metoprolol, amlodipine. 5. Hyperammonemia: Continue lactulose, Xifaxan. 6. GERD: Continue PPI. 7. Acute kidney injury superimposed on chronic kidney disease: Appreciate nephrology recommendations. Currently on furosemide, metolazone. Foster catheter in place. Renal ultrasound showed no hydronephrosis. 8. Hyperglycemia of critical illness: Monitor Accu-Cheks and cover with sliding scale insulin. 9. Macrocytic anemia: Monitor labs. 10. Hypernatremia: Resolved. 11. Acute toxic metabolic encephalopathy: Resolved. 12. DVT prophylaxis: SCDs, heparin. 13. Abdominal pain: Uncertain etiology. If pain persists, we would consider CT abdomen/pelvis. Patient is afebrile. No leukocytosis. Problem Qualifiers (1) UTI (urinary tract infection): Qualified Codes: N39.0 - Urinary tract infection, site not specified Jose Delgado MD Mar 17, 2018 14:32
[2018-03-18] VITALS (9 sets, daily range): BP systolic 128–162; BP diastolic 67–84; PULSE 85–101; RESP 18–22; TEMP 97.2–99.2; O2SAT 90–100
[2018-03-18] MEDS: HEPARIN SODIUM - SQ 10,000 UNITS/ML VIAL SQ SCH ×3 (05:44→20:49)
[2018-03-18] MEDS: INSULIN NovoLIN REGULAR SUPPLEMENTAL SCALE SQ SCH ×3 (05:47→17:20)
[2018-03-18] MEDS: CHLORHEXIDINE 0.12% (ORAL KIT) 15 ML CUP MT SCH ×2 (08:00→20:00)
[2018-03-18] MEDS: RESP: BUDESONIDE 0.5 MG/2 ML NEB NEB SCH ×2 (08:19→21:07)
[2018-03-18 08:34] LABS: AUTOMATED NEUTROPHIL # 6.1 TH/MM3 (1.8-7.7); BASOPHIL # 0.1 TH/MM3 (0-0.2); EOSINOPHIL # 0.2 TH/MM3 (0-0.4); EOSINOPHIL % 2.7 % (0.0-4.0); HEMATOCRIT 32.6 % (39.0-51.0); HEMOGLOBIN 10.5 GM/DL (13.0-17.0); LYMPH % 19.5 % (9.0-44.0); LYMPHOCYTE # 1.8 TH/MM3 (1.0-4.8); MEAN CELL VOLUME 97.7 FL (80.0-100.0); MEAN CORPUSCULAR HEMOGLOBIN 31.6 PG (27.0-34.0); MEAN CORPUSCULAR HGB CONC 32.3 % (32.0-36.0); MEAN PLATELET VOLUME 10.6 FL (7.0-11.0); MONO % 9.5 % (0.0-8.0); MONOCYTE # 0.9 TH/MM3 (0-0.9); NEUT % 67.3 % (16.0-70.0); PLATELET COUNT 250 TH/MM3 (150-450); RED BLOOD COUNT 3.34 MIL/MM3 (4.50-5.90); RED CELL DISTRIBUTION WIDTH 14.2 % (11.6-17.2); WHITE BLOOD COUNT 9.1 TH/MM3 (4.0-11.0)
[2018-03-18] MEDS: LACTULOSE SYRUP 20 GM/30 ML CUP PO SCH ×2 (09:00→09:25)
[2018-03-18] MEDS: DOCUSATE SODIUM 50 MG/SENNA 8.6 MG TAB PO SCH ×2 (09:00→20:47)
[2018-03-18 09:01] LABS: BICARBONATE 27.6 MEQ/L (21.0-32.0); CALCIUM 9.1 MG/DL (8.5-10.1); CREATININE 1.93 MG/DL (0.60-1.30)
[2018-03-18 09:03] LABS: RANDOM VANCOMYCIN 19.8 COMMENT
--- NOTE | 2018-03-18 09:20 | HHI.NPPN ---
Subjective General Problems: Edema, Hypertension Renal Failure: Chronic, Acute History of Present Illness This is a 67-year-old male with a past medical history of hypertension, hyperlipidemia, chronic kidney disease, history of acute kidney injury, congestive heart failure, chronic obstructive pulmonary disease, history of lymphedema of the leg, morbid obesity, came to the hospital with generalized weakness. Nephrology was called to see the patient because of very high BUN and creatinine and high potassium. The patient has a history of chronic kidney disease and he has recurrent acute kidney injury. The patient now came with a creatinine of 1.9 and a potassium of 6.8. The patient previously has creatinine in the range of 1.4-1.5 most of the time, and he had acute kidney injury in April of last year where the creatinine went up to 3.8. He is not following with any quality control specialist according to him on a regular basis. The patient is not a very good historian. Most of the history was taken from patient's chart and some from the patient himself. According to him, he was feeling weak and tired, and he has worsening shortness of breath and he came to the hospital. He denies taking any nonsteroid anti- inflammatory drugs. He denies taking any diuretics. He has this swelling in the legs and he has wound in both legs, for which, according to him, he is doing the dressing by himself. There is no documentation of any antibiotics for him. Additional Remarks Denies any shortness of breath. Edema in upper extremity. Reported he feels better than yesterday. Hematuria noted. (Alana Petty) Review of Systems Respiratory Respiratory Remarks Denies any SOB (Alana Petty) Cardiovascular Cardiac Remarks Denies any CP (Alana Petty) Objective Data Data 03/18/18 03/19/18 19:00 07:00 Intake Total 120 ml Balance 120 ml Intake Oral 120 ml Vital Signs Date Time Temp Pulse Resp B/P (MAP) Pulse Ox O2 Delivery O2 Flow Rate FiO2 03/18/18 08:25 90 Nasal Cannula 2.00 03/18/18 08:00 97.2 101 22 162/84 (110) 94 03/18/18 03:58 92 03/18/18 00:55 85 03/18/18 00:00 99.0 89 20 134/76 (95) 100 03/17/18 23:42 96 Nasal Cannula 2.00 03/17/18 21:48 95 Nasal Cannula 2.00 03/17/18 20:03 93 03/17/18 20:00 98.8 88 20 136/72 (93) 95 03/17/18 19:38 99 Nasal Cannula 2.00 03/17/18 16:00 98.3 100 16 138/75 (96) 94 03/17/18 12:00 98.0 99 19 136/77 (96) 92 03/17/18 10:00 Nasal Cannula 2.00 (Alana Petty) -: 03/18/18 0742 03/18/18 0742 Tubes & Lines: House (Alana Petty) Physical Exam General Appearance: No Acute Distress, Obese (Alana Petty) Pulmonary Resp Exam: Breath Sounds Equal, No Distress, Rhonchi, Decreased Bases (Alana Petty) Cardiology CV Exam: Regular (Alana Petty) Gastrointestinal/Abdomen GI Exam: Soft, Non-Tender GI Remarks large (Alana Petty) Genitourinary Exam: Flank Non-Tender Remarks hematuria present (Alana Petty) Integumentary Skin Exam: Clear, Warm (Alana Petty) Extremeties Extremities Exam: Moderate Edema, Pitting Edema, Dependent Edema (Alana Petty) Neurologic Neuro Exam: Alert, Awake, Oriented, Sedated (Alana Petty) Psychiatric Psych Exam: Appropriate Responses (Alana Petty) Assessment/Plan Discussed Condition With: Patient Problem List: (1) CHRISTAL (acute kidney injury) ICD Codes: N17.9 - Acute kidney failure, unspecified Plan: Acute Kidney injury possible related to ATN. CKD possibly related to HTN or renovascular disease. Creatinine at 1.93 from 1.86 Plan Continue Lasix 40 mg and metolazone Continue to follow the urine output and BMP intermittently Indwelling house catheter with hematuria noted possibly from not being secured discussed with nursing. Creatinine slightly rising intake has may need to hold diuretics if not improved. (2) Hyperkalemia ICD Codes: E87.5 - Hyperkalemia Status: Acute Plan: Resolved (3) UTI (urinary tract infection) ICD Codes: N39.0 - Urinary tract infection, site not specified Status: Acute Plan: resolved (Alana Petty) Problem List: (1) CHRISTAL (acute kidney injury) ICD Codes: N17.9 - Acute kidney failure, unspecified Plan: Acute Kidney injury possible related to ATN. CKD possibly related to HTN or renovascular disease. Creatinine at 1.93 from 1.86 Plan Continue Lasix 40 mg and metolazone Continue to follow the urine output and BMP intermittently Indwelling House catheter with hematuria noted possibly from not being secured discussed with nursing. Creatinine slightly rising intake has may need to hold diuretics if not improved. Patient seen and examined, agree with above. Slight increase in Creatinine, will follow and decrease diuretic if not better. (2) Hyperkalemia ICD Codes: E87.5 - Hyperkalemia Status: Acute Plan: Resolved (3) UTI (urinary tract infection) ICD Codes: N39.0 - Urinary tract infection, site not specified Status: Acute Plan: resolved (Mike Quesada MD) Problem Qualifiers (1) UTI (urinary tract infection): Qualified Codes: N39.0 - Urinary tract infection, site not specified Alana Petty Mar 18, 2018 09:20 Mike Quesada MD Mar 18, 2018 09:59
[2018-03-18] MEDS: METOPROLOL TARTRATE 25 MG TAB PO SCH ×2 (09:24→20:47)
[2018-03-18] MEDS: LANSOPRAZOLE SOLUTAB 30 MG TAB NG SCH (09:25)
[2018-03-18] MEDS: FUROSEMIDE 40 MG/4 ML VIAL IV PUSH SCH (09:25)
[2018-03-18] MEDS: METOLAZONE 2.5 MG TAB PO SCH (09:25)
[2018-03-18] MEDS: MORPHINE SULFATE 2 MG/ML SYRINGE IV PUSH PRN ×3 (09:26→20:56)
[2018-03-18] MEDS: SODIUM CHLORIDE 0.9% FLUSH 10 ML FLUSH IV FLUSH SCH ×2 (09:26→20:47)
--- NOTE | 2018-03-18 14:07 | HHI.PR ---
Subjective Remarks Follow-up abdominal pain, respiratory failure. The patient states that he feels better today. Abdominal pain has improved. Denies shortness of breath. Objective Vitals Vital Signs Date Time Temp Pulse Resp B/P (MAP) Pulse Ox O2 Delivery O2 Flow Rate FiO2 03/18/18 12:00 99.2 101 22 162/84 (110) 94 03/18/18 08:25 90 Nasal Cannula 2.00 03/18/18 08:00 97.2 101 22 162/84 (110) 94 03/18/18 03:58 92 03/18/18 00:55 85 03/18/18 00:00 99.0 89 20 134/76 (95) 100 03/17/18 23:42 96 Nasal Cannula 2.00 03/17/18 21:48 95 Nasal Cannula 2.00 03/17/18 20:03 93 03/17/18 20:00 98.8 88 20 136/72 (93) 95 03/17/18 19:38 99 Nasal Cannula 2.00 03/17/18 16:00 98.3 100 16 138/75 (96) 94 I/O 03/17/18 03/17/18 03/17/18 03/18/18 03/18/18 03/18/18 06:59 14:59 22:59 06:59 14:59 22:59 Intake Total 120 ml 500 ml 120 ml Output Total 600 ml 1550 ml Balance -480 ml -1050 ml 120 ml Intake Oral 120 ml 500 ml 120 ml Output Urine Total 600 ml 1550 ml Result Diagram: 03/18/18 0742 03/18/18 0742 Imaging Last Impressions Chest X-Ray 03/15/18 0600 Signed Impressions: Service Date/Time: Thursday, March 15, 2018 03:19 - CONCLUSION: No significant change. Armond Roman MD Lower Extremity Ultrasound 03/13/18 0000 Signed Impressions: Service Date/Time: Tuesday, March 13, 2018 09:26 - CONCLUSION: Limited by body habitus, negative for DVT.. Alxe Trejo MD FACR Renal Ultrasound 02/26/18 0000 Signed Impressions: Service Date/Time: Monday, February 26, 2018 14:30 - CONCLUSION: Stable exam; no evidence of hydronephrosis. Raf Mosqueda MD Objective Remarks General: Morbidly obese male in no acute distress. Heart: Regular rate and rhythm. No murmur. Lungs: Diminished breath sounds bilaterally. Breathing is nonlabored. Abdomen: Soft, nontender, nondistended. Extremities: 3+ bilateral lower extremity edema. Lower extremities with elephantiasis. Psych: Alert, answers questions appropriately. Neuro: Speech is quiet. No focal deficits noted. Procedures 03/01/18 orotracheal intubation 03/01/18 left subclavian central line placement 03/01/18 left radial artery monitoring line Urinary Catheter: Yes Assessment to: Remove Vascular Central Line Catheter: No A/P Problem List: (1) Hyperkalemia ICD Code: E87.5 - Hyperkalemia Status: Acute (2) CHRISTAL (acute kidney injury) ICD Code: N17.9 - Acute kidney failure, unspecified (3) UTI (urinary tract infection) ICD Code: N39.0 - Urinary tract infection, site not specified Status: Acute (4) Generalized weakness ICD Code: R53.1 - Weakness (5) CHF (congestive heart failure) ICD Code: I50.9 - Heart failure, unspecified (6) Wound, open, leg ICD Code: S81.809A - Unspecified open wound, unspecified lower leg, initial encounter (7) Acute encephalopathy ICD Code: G93.40 - Encephalopathy, unspecified Assessment and Plan 1. Acute hypoxic respiratory failure: Continue supplemental oxygen. BiPAP at night. DuoNeb scheduled and albuterol nebs as needed. Continue Symbicort. Patient was extubated on 03/15/18. 2. Acute diastolic heart failure: 2D echocardiogram showed ejection fraction 50 -55% with right atrial dilatation, LVH, and severe tricuspid regurgitation. Continue metoprolol. 3. Community-acquired pneumonia: Present on admission. Completed course of antibiotics. 4. Hypertension: Continue metoprolol, amlodipine. 5. Hyperammonemia: Continue lactulose, Xifaxan. 6. GERD: Continue PPI. 7. Acute kidney injury superimposed on chronic kidney disease: Appreciate nephrology recommendations. Currently on furosemide, metolazone. Foster catheter in place. Renal ultrasound showed no hydronephrosis. Creatinine trending up. 8. Hyperglycemia of critical illness: Monitor Accu-Cheks and cover with sliding scale insulin. 9. Macrocytic anemia: Monitor labs. 10. Hypernatremia: Improved. 11. Acute toxic metabolic encephalopathy: Resolved. 12. DVT prophylaxis: SCDs, heparin. 13. Abdominal pain: Improved. Patient is afebrile. No leukocytosis. Discharge Planning Pending further clinical improvement. Problem Qualifiers (1) UTI (urinary tract infection): Qualified Codes: N39.0 - Urinary tract infection, site not specified Jose Delgado MD Mar 18, 2018 14:07
[2018-03-19] VITALS (9 sets, daily range): BP systolic 132–154; BP diastolic 68–82; PULSE 81–90; RESP 18–22; TEMP 97.8–99.8; O2SAT 92–98
[2018-03-19] MEDS: ACETAMINOPHEN/HYDROcodone 325 MG/5 MG TAB PO PRN ×2 (00:11→21:10)
[2018-03-19] MEDS: HEPARIN SODIUM - SQ 10,000 UNITS/ML VIAL SQ SCH ×3 (04:00→21:12)
[2018-03-19] MEDS: INSULIN NovoLIN REGULAR SUPPLEMENTAL SCALE SQ SCH ×4 (05:49→18:00)
[2018-03-19] MEDS: MORPHINE SULFATE 2 MG/ML SYRINGE IV PUSH PRN ×2 (06:36→09:45)
[2018-03-19] MEDS: CHLORHEXIDINE 0.12% (ORAL KIT) 15 ML CUP MT SCH ×2 (08:00→20:00)
[2018-03-19 08:01] LABS: BICARBONATE 28.2 MEQ/L (21.0-32.0); CALCIUM 8.9 MG/DL (8.5-10.1); CREATININE 1.95 MG/DL (0.60-1.30)
[2018-03-19] MEDS: RESP: BUDESONIDE 0.5 MG/2 ML NEB NEB SCH ×2 (08:36→21:03)
[2018-03-19] MEDS: LACTULOSE SYRUP 20 GM/30 ML CUP PO SCH ×2 (09:00→09:46)
[2018-03-19] MEDS: FUROSEMIDE 40 MG/4 ML VIAL IV PUSH SCH (09:45)
[2018-03-19] MEDS: METOPROLOL TARTRATE 25 MG TAB PO SCH ×2 (09:45→21:11)
[2018-03-19] MEDS: DOCUSATE SODIUM 50 MG/SENNA 8.6 MG TAB PO SCH ×2 (09:46→21:00)
[2018-03-19] MEDS: LANSOPRAZOLE SOLUTAB 30 MG TAB NG SCH (09:46)
[2018-03-19] MEDS: METOLAZONE 2.5 MG TAB PO SCH (09:46)
[2018-03-19] MEDS: SODIUM CHLORIDE 0.9% FLUSH 10 ML FLUSH IV FLUSH SCH ×2 (09:51→21:12)
[2018-03-19] MEDS ORDERED: LIDOCAINE HCL 2% JELLY 5 ML SYRINGE TOPICAL ONE (13:00)
--- NOTE | 2018-03-19 14:56 | HHI.PR ---
Subjective Remarks Follow up respiratory failure, hematuria. Patient states that he feels "ok". Denies chest pain, dyspnea. Still having loose stools. Objective Vitals Vital Signs Date Time Temp Pulse Resp B/P (MAP) Pulse Ox O2 Delivery O2 Flow Rate FiO2 03/19/18 13:07 99.8 81 20 145/68 (93) 98 03/19/18 10:00 Room Air 3.00 03/19/18 08:36 92 Nasal Cannula 3.00 03/19/18 07:47 98.3 87 18 137/74 (95) 94 03/19/18 04:00 97.8 86 18 132/68 (89) 93 03/19/18 00:29 88 03/19/18 00:00 97.8 85 18 137/82 (100) 97 03/18/18 21:11 92 Nasal Cannula 3.00 03/18/18 20:42 93 Nasal Cannula 2.00 Humidified 03/18/18 20:00 97.3 91 18 128/67 (87) 93 03/18/18 16:00 98.0 90 18 147/79 (101) 92 I/O 03/18/18 03/18/18 03/18/18 03/19/18 03/19/18 03/19/18 07:00 15:00 23:00 07:00 15:00 23:00 Intake Total 120 ml 150 ml Output Total 300 ml Balance 120 ml -150 ml Intake Oral 120 ml 150 ml Output Urine Total 300 ml # Voids 1 Result Diagram: 03/18/18 0742 03/19/18 0500 Imaging Last Impressions Chest X-Ray 03/15/18 0600 Signed Impressions: Service Date/Time: Thursday, March 15, 2018 03:19 - CONCLUSION: No significant change. Armond Roman MD Lower Extremity Ultrasound 03/13/18 0000 Signed Impressions: Service Date/Time: Tuesday, March 13, 2018 09:26 - CONCLUSION: Limited by body habitus, negative for DVT.. Alex Trejo MD FACR Renal Ultrasound 02/26/18 0000 Signed Impressions: Service Date/Time: Monday, February 26, 2018 14:30 - CONCLUSION: Stable exam; no evidence of hydronephrosis. Raf Mosqueda MD Objective Remarks General: Morbidly obese male in no acute distress. Heart: Regular rate and rhythm. No murmur. Lungs: Diminished breath sounds bilaterally. Breathing is nonlabored. Abdomen: Soft, nontender, nondistended. Extremities: 3+ bilateral lower extremity edema. Lower extremities with elephantiasis. Psych: Alert, answers questions appropriately. Neuro: Speech is quiet. No focal deficits noted. Procedures 03/01/18 orotracheal intubation 03/01/18 left subclavian central line placement 03/01/18 left radial artery monitoring line Urinary Catheter: No Vascular Central Line Catheter: No A/P Problem List: (1) Hyperkalemia ICD Code: E87.5 - Hyperkalemia Status: Acute (2) CHRISTAL (acute kidney injury) ICD Code: N17.9 - Acute kidney failure, unspecified (3) UTI (urinary tract infection) ICD Code: N39.0 - Urinary tract infection, site not specified Status: Acute (4) Generalized weakness ICD Code: R53.1 - Weakness (5) CHF (congestive heart failure) ICD Code: I50.9 - Heart failure, unspecified (6) Wound, open, leg ICD Code: S81.809A - Unspecified open wound, unspecified lower leg, initial encounter (7) Acute encephalopathy ICD Code: G93.40 - Encephalopathy, unspecified (8) Hematuria ICD Code: R31.9 - Hematuria, unspecified Assessment and Plan 1. Acute hypoxic respiratory failure: Continue supplemental oxygen. BiPAP at night. DuoNeb scheduled and albuterol nebs as needed. Continue Symbicort. Patient was extubated on 03/15/18. 2. Acute diastolic heart failure: 2D echocardiogram showed ejection fraction 50 -55% with right atrial dilatation, LVH, and severe tricuspid regurgitation. Continue metoprolol. 3. Community-acquired pneumonia: Present on admission. Completed course of antibiotics. 4. Hypertension: Continue metoprolol, amlodipine. 5. Hyperammonemia: Continue lactulose, Xifaxan. 6. GERD: Continue PPI. 7. Acute kidney injury superimposed on chronic kidney disease: Appreciate nephrology recommendations. Currently on furosemide, metolazone. Renal ultrasound showed no hydronephrosis. Creatinine trending up. 8. Hyperglycemia of critical illness: Monitor Accu-Cheks and cover with sliding scale insulin. 9. Macrocytic anemia: Monitor labs. 10. Hypernatremia: Improved. 11. Acute toxic metabolic encephalopathy: Resolved. 12. DVT prophylaxis: SCDs, heparin. 13. Abdominal pain: Improved. Patient is afebrile. No leukocytosis. 14. Hematuria: Patient had hematuria with clots following removal of Foster catheter. Appreciate urology recommendations. Discussed with Dr. Caballero. 15. Profound weakness: Continue physical therapy, occupational therapy. Discharge Planning Pending further clinical improvement. Problem Qualifiers (1) UTI (urinary tract infection): Qualified Codes: N39.0 - Urinary tract infection, site not specified Jose Delgado MD Mar 19, 2018 14:56
--- NOTE | 2018-03-19 16:09 | MB ---
cc: Jaspal Caballero DO DATE: 03/19/2018 DATE OF CONSULTATION: 03/19/2018. HISTORY OF PRESENT ILLNESS: Mr. Roth is a 67-year-old male who has a history of multiple medical problems who was admitted with weakness, shortness of breath. He has been admitted for approximately almost 1 month now. A Foster catheter was in place and it was removed the other day and the patient has developed gross hematuria. He does have a history of prostate cancer, but he is unable to give a full history. There is no evidence of any scar on his abdomen, so therefore, I assume that he may have had radiation therapy in the past for his prostate cancer. PAST MEDICAL HISTORY: His medical problems include hypertension, heart disease, CHF, chronic kidney disease, morbid obesity, lymphedema with leg wounds, COPD, diabetes mellitus, history of prostate cancer. PAST SURGICAL HISTORY: Noted for right hand surgery. ALLERGIES: THERE ARE NO KNOWN DRUG ALLERGIES. FAMILY HISTORY: Unable to obtain. SOCIAL HISTORY: Unable to obtain. REVIEW OF SYSTEMS: Unable to obtain from him at the present time. PHYSICAL EXAMINATION: VITAL SIGNS: Currently 99.8, heart rate 81, respiratory rate 20, 145/68. GENERAL: A morbidly obese 67-year-old black male in no acute distress. HEENT: Normocephalic, atraumatic. Pupils equal, round, regular and reactive to light. Extraocular movements intact. NECK: Supple. HEART: Regular rate and rhythm. LUNGS: Bilateral breath sounds heard bilaterally, but diminished. ABDOMEN: Soft, nontender, nondistended. Again, no scars identified. GENITOURINARY: Uncircumcised phallus. Testes are descended. EXTREMITIES: 3+ lower extremity edema is noted. NEUROLOGIC: Cranial nerves 2-12 are intact. PROCEDURE: A 20-Irish 2-way Foster catheter was inserted at the bedside and he was irrigated until clear, removing multiple clots. LABORATORY DATA: White count 9.1, hemoglobin 10.5, hematocrit 32.6, platelet count of 250. Sodium 150, potassium 3.8, chloride 114, CO2 is 28.2, BUN 52, creatinine 1.95, glucose of 90. Urinalysis from 03/08/2018 shows moderate leukocyte esterase, 52 white cells, numerous red cells. IMAGING STUDIES: Renal ultrasound from 02/26/2018 shows stable exam. No evidence of any hydronephrosis. ASSESSMENT AND PLAN: A 67-year-old male with new onset of gross hematuria, possibly secondary to a history of prostate cancer with prior radiation therapy. Foster inserted at the bedside and Foster irrigated until clear with clots removed. Recommend manual irrigation to the Foster p.r.n. every shift. Continue with urine, maintaining clarity. Would recommend leaving the Foster in for now until he is able to get up and ambulate and then give him a void trial. Thank you for the consult and allowing me participate in the care of this patient. DO SCOTTIE Alfredo/LUIGI , 03:17 PM , 04:08 PM
--- NOTE | 2018-03-19 18:07 | HHI.NPPN ---
Subjective General Problems: Edema, Hypertension Renal Failure: Chronic, Acute History of Present Illness This is a 67-year-old male with a past medical history of hypertension, hyperlipidemia, chronic kidney disease, history of acute kidney injury, congestive heart failure, chronic obstructive pulmonary disease, history of lymphedema of the leg, morbid obesity, came to the hospital with generalized weakness. Nephrology was called to see the patient because of very high BUN and creatinine and high potassium. The patient has a history of chronic kidney disease and he has recurrent acute kidney injury. The patient now came with a creatinine of 1.9 and a potassium of 6.8. The patient previously has creatinine in the range of 1.4-1.5 most of the time, and he had acute kidney injury in April of last year where the creatinine went up to 3.8. He is not following with any glass loading equipment tender according to him on a regular basis. The patient is not a very good historian. Most of the history was taken from patient's chart and some from the patient himself. According to him, he was feeling weak and tired, and he has worsening shortness of breath and he came to the hospital. He denies taking any nonsteroid anti- inflammatory drugs. He denies taking any diuretics. He has this swelling in the legs and he has wound in both legs, for which, according to him, he is doing the dressing by himself. There is no documentation of any antibiotics for him. Additional Remarks Patient seen in the afternoon, alert, eating better, with nasal cannula, mild SOB. Review of Systems Respiratory Respiratory Remarks Denies any SOB Cardiovascular Cardiac Remarks Denies any CP Objective Data Data Vital Signs Date Time Temp Pulse Resp B/P (MAP) Pulse Ox O2 Delivery O2 Flow Rate FiO2 03/19/18 16:00 98.1 81 22 154/75 (101) 92 03/19/18 13:07 99.8 81 20 145/68 (93) 98 03/19/18 10:00 Room Air 3.00 03/19/18 08:36 92 Nasal Cannula 3.00 03/19/18 07:47 98.3 87 18 137/74 (95) 94 03/19/18 04:00 97.8 86 18 132/68 (89) 93 03/19/18 00:29 88 03/19/18 00:00 97.8 85 18 137/82 (100) 97 4/19/18 21:11 92 Nasal Cannula 3.00 03/18/18 20:42 93 Nasal Cannula 2.00 Humidified 03/18/18 20:00 97.3 91 18 128/67 (87) 93 -: 03/18/18 0742 03/19/18 0500 Tubes & Lines: Foster Physical Exam General Appearance: No Acute Distress, Obese Appearance Remarks Pulmonary Resp Exam: Breath Sounds Equal, No Distress, Rhonchi, Decreased Bases Cardiology CV Exam: Regular Gastrointestinal/Abdomen GI Exam: Soft, Non-Tender Genitourinary Exam: Flank Non-Tender Integumentary Skin Exam: Clear, Warm Extremeties Extremities Exam: Moderate Edema, Pitting Edema, Dependent Edema Neurologic Neuro Exam: Alert, Awake, Oriented, Sedated Psychiatric Psych Exam: Appropriate Responses Assessment/Plan Discussed Condition With: Patient Problem List: (1) CHRISTAL (acute kidney injury) ICD Codes: N17.9 - Acute kidney failure, unspecified Plan: Acute Kidney injury possible related to ATN. CKD possibly related to HTN or renovascular disease. Creatinine at 1.93 from 1.86 Plan Continue Lasix 40 mg and metolazone Continue to follow the urine output and BMP intermittently Indwelling Foster catheter with hematuria noted possibly from not being secured discussed with nursing. Creatinine now stabilize at 1.9. Continue Lasix, edema is decreasing. (2) Hyperkalemia ICD Codes: E87.5 - Hyperkalemia Status: Acute Plan: Resolved (3) UTI (urinary tract infection) ICD Codes: N39.0 - Urinary tract infection, site not specified Status: Acute Plan: resolved Problem Qualifiers (1) UTI (urinary tract infection): Qualified Codes: N39.0 - Urinary tract infection, site not specified Mike Quesada MD Mar 19, 2018 18:07
[2018-03-20] VITALS (10 sets, daily range): BP systolic 136–171; BP diastolic 71–80; PULSE 75–91; RESP 17–20; TEMP 97.6–98.8; O2SAT 78–96
[2018-03-20] MEDS: HEPARIN SODIUM - SQ 10,000 UNITS/ML VIAL SQ SCH ×3 (05:08→21:38)
[2018-03-20] MEDS: MORPHINE SULFATE 2 MG/ML SYRINGE IV PUSH PRN ×3 (05:08→18:05)
[2018-03-20] MEDS: INSULIN NovoLIN REGULAR SUPPLEMENTAL SCALE SQ SCH ×4 (05:25→17:30)
[2018-03-20] MEDS: CHLORHEXIDINE 0.12% (ORAL KIT) 15 ML CUP MT SCH ×2 (08:00→20:00)
[2018-03-20] MEDS: RESP: BUDESONIDE 0.5 MG/2 ML NEB NEB SCH ×3 (08:00→20:08)
[2018-03-20 08:07] LABS: AUTOMATED NEUTROPHIL # 6.2 TH/MM3 (1.8-7.7); BASOPHIL # 0.2 TH/MM3 (0-0.2); BASOPHIL % 1.6 % (0.0-2.0); EOSINOPHIL # 0.3 TH/MM3 (0-0.4); EOSINOPHIL % 3.8 % (0.0-4.0); HEMATOCRIT 29.9 % (39.0-51.0); HEMOGLOBIN 9.6 GM/DL (13.0-17.0); LYMPH % 18.6 % (9.0-44.0); LYMPHOCYTE # 1.7 TH/MM3 (1.0-4.8); MEAN CELL VOLUME 98.9 FL (80.0-100.0); MEAN CORPUSCULAR HEMOGLOBIN 31.9 PG (27.0-34.0); MEAN CORPUSCULAR HGB CONC 32.2 % (32.0-36.0); MEAN PLATELET VOLUME 10.5 FL (7.0-11.0); MONO % 8.3 % (0.0-8.0); MONOCYTE # 0.8 TH/MM3 (0-0.9); NEUT % 67.7 % (16.0-70.0); PLATELET COUNT 198 TH/MM3 (150-450); RED BLOOD COUNT 3.03 MIL/MM3 (4.50-5.90); WHITE BLOOD COUNT 9.2 TH/MM3 (4.0-11.0)
[2018-03-20 08:12] LABS: BICARBONATE 28.6 MEQ/L (21.0-32.0); CALCIUM 8.9 MG/DL (8.5-10.1); CREATININE 1.75 MG/DL (0.60-1.30)
[2018-03-20] MEDS: LACTULOSE SYRUP 20 GM/30 ML CUP PO SCH (08:59)
[2018-03-20] MEDS: LANSOPRAZOLE SOLUTAB 30 MG TAB NG SCH (08:59)
[2018-03-20] MEDS: METOPROLOL TARTRATE 25 MG TAB PO SCH ×2 (09:01→21:38)
[2018-03-20] MEDS: METOLAZONE 2.5 MG TAB PO SCH (09:01)
[2018-03-20] MEDS: DOCUSATE SODIUM 50 MG/SENNA 8.6 MG TAB PO SCH ×2 (09:01→21:38)
[2018-03-20] MEDS: FUROSEMIDE 40 MG/4 ML VIAL IV PUSH SCH (09:01)
[2018-03-20] MEDS: SODIUM CHLORIDE 0.9% FLUSH 10 ML FLUSH IV FLUSH SCH ×2 (09:01→21:52)
--- NOTE | 2018-03-20 10:38 | HHI.NPPN ---
Subjective General Problems: Edema, Hypertension Renal Failure: Chronic, Acute History of Present Illness This is a 67-year-old male with a past medical history of hypertension, hyperlipidemia, chronic kidney disease, history of acute kidney injury, congestive heart failure, chronic obstructive pulmonary disease, history of lymphedema of the leg, morbid obesity, came to the hospital with generalized weakness. Nephrology was called to see the patient because of very high BUN and creatinine and high potassium. The patient has a history of chronic kidney disease and he has recurrent acute kidney injury. The patient now came with a creatinine of 1.9 and a potassium of 6.8. The patient previously has creatinine in the range of 1.4-1.5 most of the time, and he had acute kidney injury in April of last year where the creatinine went up to 3.8. He is not following with any salad bar clerk according to him on a regular basis. The patient is not a very good historian. Most of the history was taken from patient's chart and some from the patient himself. According to him, he was feeling weak and tired, and he has worsening shortness of breath and he came to the hospital. He denies taking any nonsteroid anti- inflammatory drugs. He denies taking any diuretics. He has this swelling in the legs and he has wound in both legs, for which, according to him, he is doing the dressing by himself. There is no documentation of any antibiotics for him. Additional Remarks Patient is sleepy but arousable, eating better, with nasal cannula, mild SOB. Review of Systems Respiratory Respiratory Remarks Denies any SOB Cardiovascular Cardiac Remarks Denies any CP Objective Data Data 03/20/18 03/21/18 19:00 07:00 Intake Total 120 ml Balance 120 ml Intake Oral 120 ml Vital Signs Date Time Temp Pulse Resp B/P (MAP) Pulse Ox O2 Delivery O2 Flow Rate FiO2 03/20/18 08:00 98.0 75 20 137/72 (93) 95 03/20/18 04:00 97.7 89 18 137/71 (93) 96 03/20/18 00:00 97.6 84 18 136/75 (95) 95 03/19/18 23:38 Nasal Cannula 3.00 Humidified 03/19/18 21:05 97 Nasal Cannula 3.00 03/19/18 20:00 98.1 84 18 153/78 (103) 97 4/20/18 20:00 90 03/19/18 16:00 98.1 81 22 154/75 (101) 92 03/19/18 13:07 99.8 81 20 145/68 (93) 98 -: 03/20/18 0645 03/20/18 0645 Tubes & Lines: Foster Physical Exam General Appearance: No Acute Distress, Obese Appearance Remarks Pulmonary Resp Exam: Breath Sounds Equal, No Distress, Rhonchi, Decreased Bases Cardiology CV Exam: Regular Gastrointestinal/Abdomen GI Exam: Soft, Non-Tender Genitourinary Exam: Flank Non-Tender Integumentary Skin Exam: Clear, Warm Extremeties Extremities Exam: Moderate Edema, Pitting Edema, Dependent Edema Neurologic Neuro Exam: Alert, Awake, Oriented, Sedated Psychiatric Psych Exam: Appropriate Responses Assessment/Plan Discussed Condition With: Patient Problem List: (1) CHRISTAL (acute kidney injury) ICD Codes: N17.9 - Acute kidney failure, unspecified Plan: Acute Kidney injury possible related to ATN. CKD possibly related to HTN or renovascular disease. Creatinine at 1.93 from 1.86 Plan Continue Lasix 40 mg and metolazone Continue to follow the urine output and BMP intermittently Indwelling Foster catheter with hematuria noted possibly from not being secured discussed with nursing. Creatinine improve slightly at 1.7. Edema is decreasing. Continue Lasix and metolazone, encourage PT. (2) Hyperkalemia ICD Codes: E87.5 - Hyperkalemia Status: Acute Plan: Resolved (3) UTI (urinary tract infection) ICD Codes: N39.0 - Urinary tract infection, site not specified Status: Acute Plan: resolved Problem Qualifiers (1) UTI (urinary tract infection): Qualified Codes: N39.0 - Urinary tract infection, site not specified Mike Quesada MD Mar 20, 2018 10:38
--- NOTE | 2018-03-20 10:41 | HHI.PR ---
Subjective Remarks Follow-up hematuria, weakness, respiratory failure. The patient is somewhat lethargic today. He does awaken to verbal stimuli, but falls asleep during the exam. States that he does not feel good today, but does not provide more specific complaints. Objective Vitals Vital Signs Date Time Temp Pulse Resp B/P (MAP) Pulse Ox O2 Delivery O2 Flow Rate FiO2 03/20/18 08:00 98.0 75 20 137/72 (93) 95 03/20/18 04:00 97.7 89 18 137/71 (93) 96 03/20/18 00:00 97.6 84 18 136/75 (95) 95 03/19/18 23:38 Nasal Cannula 3.00 Humidified 03/19/18 21:05 97 Nasal Cannula 3.00 03/19/18 20:00 98.1 84 18 153/78 (103) 97 03/19/18 20:00 90 03/19/18 16:00 98.1 81 22 154/75 (101) 92 03/19/18 13:07 99.8 81 20 145/68 (93) 98 I/O 03/19/18 03/19/18 03/19/18 03/20/18 03/20/18 03/20/18 07:00 15:00 23:00 07:00 15:00 23:00 Intake Total 900 ml 900 ml 120 ml Output Total 725 ml 1400 ml Balance 175 ml -500 ml 120 ml Intake Oral 900 ml 900 ml 120 ml Output Urine Total 600 ml 1400 ml Stool Total 125 ml # Voids 1 2 Result Diagram: 03/20/18 0645 03/20/18 0645 Imaging Last Impressions Chest X-Ray 03/15/18 0600 Signed Impressions: Service Date/Time: Thursday, March 15, 2018 03:19 - CONCLUSION: No significant change. Armond Roman MD Lower Extremity Ultrasound 03/13/18 0000 Signed Impressions: Service Date/Time: Tuesday, March 13, 2018 09:26 - CONCLUSION: Limited by body habitus, negative for DVT.. Alex Trejo MD FACR Renal Ultrasound 02/26/18 0000 Signed Impressions: Service Date/Time: Monday, February 26, 2018 14:30 - CONCLUSION: Stable exam; no evidence of hydronephrosis. Raf Mosqueda MD Objective Remarks General: Morbidly obese male in no acute distress. Heart: Regular rate and rhythm. No murmur. Lungs: Diminished breath sounds bilaterally. Breathing is nonlabored. Abdomen: Soft, nontender, nondistended. Extremities: 3+ bilateral lower extremity edema. Lower extremities with elephantiasis. Psych: Lethargic. Neuro: No focal deficits noted. Procedures 03/01/18 orotracheal intubation 03/01/18 left subclavian central line placement 03/01/18 left radial artery monitoring line Urinary Catheter: Yes Assessment to: Continue Vascular Central Line Catheter: No A/P Problem List: (1) Hyperkalemia ICD Code: E87.5 - Hyperkalemia Status: Acute (2) CHRISTAL (acute kidney injury) ICD Code: N17.9 - Acute kidney failure, unspecified (3) UTI (urinary tract infection) ICD Code: N39.0 - Urinary tract infection, site not specified Status: Acute (4) Generalized weakness ICD Code: R53.1 - Weakness (5) CHF (congestive heart failure) ICD Code: I50.9 - Heart failure, unspecified (6) Wound, open, leg ICD Code: S81.809A - Unspecified open wound, unspecified lower leg, initial encounter (7) Acute encephalopathy ICD Code: G93.40 - Encephalopathy, unspecified (8) Hematuria ICD Code: R31.9 - Hematuria, unspecified Assessment and Plan 1. Acute hypoxic respiratory failure: Continue supplemental oxygen. BiPAP at night. DuoNeb scheduled and albuterol nebs as needed. Continue Symbicort. Patient was extubated on 03/15/18. 2. Acute diastolic heart failure: 2D echocardiogram showed ejection fraction 50 -55% with right atrial dilatation, LVH, and severe tricuspid regurgitation. Continue metoprolol, Lasix. 3. Community-acquired pneumonia: Present on admission. Completed course of antibiotics. 4. Hypertension: Continue metoprolol, amlodipine. 5. Hyperammonemia: Continue lactulose, Xifaxan. 6. GERD: Continue PPI. 7. Acute kidney injury superimposed on chronic kidney disease: Appreciate nephrology recommendations. Currently on furosemide, metolazone. Renal ultrasound showed no hydronephrosis. Creatinine trending up. 8. Hyperglycemia of critical illness: Monitor Accu-Cheks and cover with sliding scale insulin. 9. Macrocytic anemia: Monitor labs. 10. Hypernatremia: Improved. 11. Acute toxic metabolic encephalopathy: Resolved. 12. DVT prophylaxis: SCDs, heparin. 13. Abdominal pain: Improved. Patient is afebrile. No leukocytosis. 14. Hematuria: Patient had hematuria with clots following removal of Foster catheter. Appreciate urology recommendations. Urine is red again this morning. Hemoglobin slightly decreased. Monitor H&H per 15. Profound weakness: Continue physical therapy, occupational therapy. Discharge Planning Pending further clinical improvement. Problem Qualifiers (1) UTI (urinary tract infection): Qualified Codes: N39.0 - Urinary tract infection, site not specified Jose Delgado MD Mar 20, 2018 10:41
[2018-03-20 16:49] LABS: HEMATOCRIT 30.4 % (39.0-51.0); HEMOGLOBIN 9.8 GM/DL (13.0-17.0)
[2018-03-20] MEDS: ACETAMINOPHEN/HYDROcodone 325 MG/5 MG TAB PO PRN (21:46)
[2018-03-21] VITALS (8 sets, daily range): BP systolic 141–158; BP diastolic 81–94; PULSE 78–90; RESP 18–20; TEMP 98–98.6; O2SAT 90–100
[2018-03-21] MEDS: HEPARIN SODIUM - SQ 10,000 UNITS/ML VIAL SQ SCH ×3 (04:59→21:58)
[2018-03-21] MEDS: INSULIN NovoLIN REGULAR SUPPLEMENTAL SCALE SQ SCH ×4 (05:09→17:59)
[2018-03-21] MEDS: ACETAMINOPHEN/HYDROcodone 325 MG/5 MG TAB PO PRN (05:09)
[2018-03-21 07:36] LABS: AUTOMATED NEUTROPHIL # 7.2 TH/MM3 (1.8-7.7); BASOPHIL # 0.1 TH/MM3 (0-0.2); BASOPHIL % 0.9 % (0.0-2.0); EOSINOPHIL # 0.4 TH/MM3 (0-0.4); EOSINOPHIL % 3.7 % (0.0-4.0); HEMATOCRIT 31.1 % (39.0-51.0); LYMPH % 14.1 % (9.0-44.0); LYMPHOCYTE # 1.4 TH/MM3 (1.0-4.8); MEAN CELL VOLUME 97.4 FL (80.0-100.0); MEAN CORPUSCULAR HEMOGLOBIN 31.4 PG (27.0-34.0); MEAN CORPUSCULAR HGB CONC 32.3 % (32.0-36.0); MEAN PLATELET VOLUME 10.3 FL (7.0-11.0); MONO % 9.3 % (0.0-8.0); MONOCYTE # 0.9 TH/MM3 (0-0.9); PLATELET COUNT 202 TH/MM3 (150-450); RED CELL DISTRIBUTION WIDTH 13.8 % (11.6-17.2); WHITE BLOOD COUNT 9.9 TH/MM3 (4.0-11.0)
[2018-03-21 08:00] LABS: BICARBONATE 30.7 MEQ/L (21.0-32.0); CALCIUM 8.9 MG/DL (8.5-10.1); CREATININE 1.89 MG/DL (0.60-1.30); MAGNESIUM 1.9 MG/DL (1.5-2.5)
[2018-03-21] MEDS: CHLORHEXIDINE 0.12% (ORAL KIT) 15 ML CUP MT SCH ×2 (08:00→20:00)
[2018-03-21] MEDS: LACTULOSE SYRUP 20 GM/30 ML CUP PO SCH (08:10)
[2018-03-21] MEDS: FUROSEMIDE 40 MG/4 ML VIAL IV PUSH SCH (08:11)
[2018-03-21] MEDS: METOLAZONE 2.5 MG TAB PO SCH (08:11)
[2018-03-21] MEDS: LANSOPRAZOLE SOLUTAB 30 MG TAB NG SCH (08:11)
[2018-03-21] MEDS: METOPROLOL TARTRATE 25 MG TAB PO SCH ×2 (08:11→21:58)
[2018-03-21] MEDS: DOCUSATE SODIUM 50 MG/SENNA 8.6 MG TAB PO SCH ×2 (08:11→21:59)
[2018-03-21] MEDS: SODIUM CHLORIDE 0.9% FLUSH 10 ML FLUSH IV FLUSH SCH ×2 (08:15→21:59)
[2018-03-21] MEDS: MORPHINE SULFATE 2 MG/ML SYRINGE IV PUSH PRN ×2 (10:39→17:51)
[2018-03-21] MEDS: ERGOCALCIFEROL (VIT D2) 50,000 UNIT CAP PO SCH (10:39)
--- NOTE | 2018-03-21 10:47 | HHI.NPPN ---
Subjective General Problems: Edema, Hypertension Renal Failure: Chronic, Acute History of Present Illness This is a 67-year-old male with a past medical history of hypertension, hyperlipidemia, chronic kidney disease, history of acute kidney injury, congestive heart failure, chronic obstructive pulmonary disease, history of lymphedema of the leg, morbid obesity, came to the hospital with generalized weakness. Nephrology was called to see the patient because of very high BUN and creatinine and high potassium. The patient has a history of chronic kidney disease and he has recurrent acute kidney injury. The patient now came with a creatinine of 1.9 and a potassium of 6.8. The patient previously has creatinine in the range of 1.4-1.5 most of the time, and he had acute kidney injury in April of last year where the creatinine went up to 3.8. He is not following with any garment liner according to him on a regular basis. The patient is not a very good historian. Most of the history was taken from patient's chart and some from the patient himself. According to him, he was feeling weak and tired, and he has worsening shortness of breath and he came to the hospital. He denies taking any nonsteroid anti- inflammatory drugs. He denies taking any diuretics. He has this swelling in the legs and he has wound in both legs, for which, according to him, he is doing the dressing by himself. There is no documentation of any antibiotics for him. Additional Remarks Patient is more alert today. Does not report any complaints. (Alana Petty) Review of Systems Respiratory Respiratory Remarks Denies any SOB (Alana Petty) Cardiovascular Cardiac Remarks Denies any CP (Alana Petty) Objective Data Data Vital Signs Date Time Temp Pulse Resp B/P (MAP) Pulse Ox O2 Delivery O2 Flow Rate FiO2 03/21/18 08:00 98.4 86 19 146/81 (102) 90 03/21/18 04:04 90 03/21/18 04:00 98.6 90 20 158/83 (108) 100 03/21/18 00:00 98.3 86 20 156/85 (108) 91 03/20/18 23:34 91 03/20/18 21:36 94 Nasal Cannula 3.00 Humidified 4/21/18 20:10 93 Nasal Cannula 2.00 03/20/18 20:00 98.8 81 20 146/75 (98) 94 03/20/18 19:56 83 03/20/18 19:01 Nasal Cannula 3.00 03/20/18 16:00 98.1 78 17 159/74 (102) 93 03/20/18 13:26 137/75 (95) 78 03/20/18 12:00 98.2 77 20 171/80 (110) 95 (Alana Petty) -: 03/21/18 0702 03/21/18 0702 Imaging Last Impressions Chest X-Ray 03/15/18 0600 Signed Impressions: Service Date/Time: Thursday, March 15, 2018 03:19 - CONCLUSION: No significant change. Armond Roman MD Lower Extremity Ultrasound 03/13/18 0000 Signed Impressions: Service Date/Time: Tuesday, March 13, 2018 09:26 - CONCLUSION: Limited by body habitus, negative for DVT.. Alex Trejo MD FACR Renal Ultrasound 02/26/18 0000 Signed Impressions: Service Date/Time: Monday, February 26, 2018 14:30 - CONCLUSION: Stable exam; no evidence of hydronephrosis. Raf Mosqueda MD Tubes & Lines: Foster (Alana Petty) Physical Exam General Appearance: No Acute Distress, Obese (Alana Petty) Pulmonary Resp Exam: Breath Sounds Equal, No Distress, Rhonchi, Decreased Bases (Alana Petty) Cardiology CV Exam: Regular (Alana Petty) Gastrointestinal/Abdomen GI Exam: Soft, Non-Tender GI Remarks large (Alana Petty) Genitourinary Exam: Flank Non-Tender Remarks hematuria present (Alana Petty) Integumentary Skin Exam: Clear, Warm (Alana Petty) Extremeties Extremities Exam: Moderate Edema, Pitting Edema, Dependent Edema (Alana Petty) Neurologic Neuro Exam: Alert, Awake, Oriented, Sedated (Alana Petty) Psychiatric Psych Exam: Appropriate Responses (Alana Petty) Assessment/Plan Discussed Condition With: Patient Problem List: (1) CHRSITAL (acute kidney injury) ICD Codes: N17.9 - Acute kidney failure, unspecified Plan: Acute Kidney injury possible related to ATN. CKD possibly related to HTN or renovascular disease. Creatinine is stable and edema is improving. Plan Continue Lasix 40 mg and metolazone Continue to follow the urine output and BMP intermittently Avoid nephrotoxins. PT encouraged. (2) Hyperkalemia ICD Codes: E87.5 - Hyperkalemia Status: Acute Plan: Resolved (3) UTI (urinary tract infection) ICD Codes: N39.0 - Urinary tract infection, site not specified Status: Acute Plan: resolved (Alana Petty) Problem List: (1) CHRISTAL (acute kidney injury) ICD Codes: N17.9 - Acute kidney failure, unspecified Plan: Acute Kidney injury possible related to ATN. CKD possibly related to HTN or renovascular disease. Creatinine is stable and edema is improving. Plan Continue Lasix 40 mg and metolazone Continue to follow the urine output and BMP intermittently Avoid nephrotoxins. PT encouraged. Patient seen and examined, agree with above. Continue diuretics. (2) Hyperkalemia ICD Codes: E87.5 - Hyperkalemia Status: Acute Plan: Resolved (3) UTI (urinary tract infection) ICD Codes: N39.0 - Urinary tract infection, site not specified Status: Acute Plan: resolved (Mike Quesada MD) Problem Qualifiers (1) UTI (urinary tract infection): Qualified Codes: N39.0 - Urinary tract infection, site not specified Alana Petty Mar 21, 2018 10:47 Mike Quesada MD Mar 21, 2018 14:52
--- NOTE | 2018-03-21 14:52 | HHI.PR ---
Subjective Remarks Follow-up hematuria, weakness. The patient states that he feels a little better today. He is more alert. Denies chest pain or dyspnea. Objective Vitals Vital Signs Date Time Temp Pulse Resp B/P (MAP) Pulse Ox O2 Delivery O2 Flow Rate FiO2 03/21/18 12:00 98.0 83 18 146/87 (106) 95 03/21/18 08:00 98.4 86 19 146/81 (102) 90 03/21/18 04:04 90 03/21/18 04:00 98.6 90 20 158/83 (108) 100 03/21/18 00:00 98.3 86 20 156/85 (108) 91 03/20/18 23:34 91 03/20/18 21:36 94 Nasal Cannula 3.00 Humidified 03/20/18 20:10 93 Nasal Cannula 2.00 03/20/18 20:00 98.8 81 20 146/75 (98) 94 03/20/18 19:56 83 03/20/18 19:01 Nasal Cannula 3.00 03/20/18 16:00 98.1 78 17 159/74 (102) 93 I/O 03/20/18 03/20/18 03/20/18 03/21/18 03/21/18 03/21/18 06:59 14:59 22:59 06:59 14:59 22:59 Intake Total 900 ml 120 ml 400 ml 240 ml Output Total 1400 ml 1000 ml 1300 ml Balance -500 ml 120 ml -600 ml -1060 ml Intake Oral 900 ml 120 ml 400 ml 240 ml Output Urine Total 1400 ml 1000 ml 1300 ml Result Diagram: 03/21/18 0702 03/21/18 0702 Imaging Last Impressions Chest X-Ray 03/15/18 0600 Signed Impressions: Service Date/Time: Thursday, March 15, 2018 03:19 - CONCLUSION: No significant change. Armond Roman MD Lower Extremity Ultrasound 03/13/18 0000 Signed Impressions: Service Date/Time: Tuesday, March 13, 2018 09:26 - CONCLUSION: Limited by body habitus, negative for DVT.. Alex Trejo MD FACR Renal Ultrasound 02/26/18 0000 Signed Impressions: Service Date/Time: Monday, February 26, 2018 14:30 - CONCLUSION: Stable exam; no evidence of hydronephrosis. Raf Mosqueda MD Objective Remarks General: Morbidly obese male in no acute distress. Heart: Regular rate and rhythm. No murmur. Lungs: Diminished breath sounds bilaterally. Breathing is nonlabored. Abdomen: Soft, nontender, nondistended. Extremities: Lower extremities with lymphedema. Psych: Alert. Answers questions appropriately. Neuro: No focal deficits noted. Procedures 03/01/18 orotracheal intubation 03/01/18 left subclavian central line placement 03/01/18 left radial artery monitoring line Urinary Catheter: No Vascular Central Line Catheter: No A/P Problem List: (1) Hyperkalemia ICD Code: E87.5 - Hyperkalemia Status: Acute (2) CHRISTAL (acute kidney injury) ICD Code: N17.9 - Acute kidney failure, unspecified (3) UTI (urinary tract infection) ICD Code: N39.0 - Urinary tract infection, site not specified Status: Acute (4) Generalized weakness ICD Code: R53.1 - Weakness (5) CHF (congestive heart failure) ICD Code: I50.9 - Heart failure, unspecified (6) Wound, open, leg ICD Code: S81.809A - Unspecified open wound, unspecified lower leg, initial encounter (7) Acute encephalopathy ICD Code: G93.40 - Encephalopathy, unspecified (8) Hematuria ICD Code: R31.9 - Hematuria, unspecified Assessment and Plan 1. Acute hypoxic respiratory failure: Continue supplemental oxygen. BiPAP at night. DuoNeb scheduled and albuterol nebs as needed. Continue Symbicort. Patient was extubated on 03/15/18. 2. Acute diastolic heart failure: 2D echocardiogram showed ejection fraction 50 -55% with right atrial dilatation, LVH, and severe tricuspid regurgitation. Continue metoprolol, Lasix. 3. Community-acquired pneumonia: Present on admission. Completed course of antibiotics. 4. Hypertension: Continue metoprolol, amlodipine. 5. Hyperammonemia: Continue lactulose, Xifaxan. 6. GERD: Continue PPI. 7. Acute kidney injury superimposed on chronic kidney disease: Appreciate nephrology recommendations. Currently on furosemide, metolazone. Renal ultrasound showed no hydronephrosis. Creatinine increased a little today. 8. Hyperglycemia of critical illness: Monitor Accu-Cheks and cover with sliding scale insulin. 9. Macrocytic anemia: Monitor labs. 10. Hypernatremia: Improved. 11. Acute toxic metabolic encephalopathy: Resolved. 12. DVT prophylaxis: SCDs, heparin. 13. Abdominal pain: Improved. Patient is afebrile. No leukocytosis. 14. Hematuria: Patient had hematuria with clots following removal of Foster catheter. Appreciate urology recommendations. Urine is now clear. H&H are stable. 15. Profound weakness: Continue physical therapy, occupational therapy. Discharge Planning Pending further clinical improvement. Problem Qualifiers (1) UTI (urinary tract infection): Qualified Codes: N39.0 - Urinary tract infection, site not specified Jose Delgado MD Mar 21, 2018 14:52
[2018-03-21] MEDS: RESP: BUDESONIDE 0.5 MG/2 ML NEB NEB SCH ×2 (20:00→21:07)
[2018-03-22] VITALS (8 sets, daily range): BP systolic 121–148; BP diastolic 61–76; PULSE 73–90; RESP 17–20; TEMP 97.5–98; O2SAT 86–96
[2018-03-22] MEDS: ACETAMINOPHEN/HYDROcodone 325 MG/5 MG TAB PO PRN ×3 (02:27→17:30)
[2018-03-22] MEDS: HEPARIN SODIUM - SQ 10,000 UNITS/ML VIAL SQ SCH ×3 (05:14→21:46)
[2018-03-22] MEDS: INSULIN NovoLIN REGULAR SUPPLEMENTAL SCALE SQ SCH ×3 (05:18→12:00)
[2018-03-22] MEDS: CHLORHEXIDINE 0.12% (ORAL KIT) 15 ML CUP MT SCH ×2 (08:00→20:00)
[2018-03-22] MEDS: DOCUSATE SODIUM 50 MG/SENNA 8.6 MG TAB PO SCH ×2 (08:51→21:46)
[2018-03-22] MEDS: SODIUM CHLORIDE 0.9% FLUSH 10 ML FLUSH IV FLUSH SCH ×2 (08:51→21:47)
[2018-03-22] MEDS: LANSOPRAZOLE SOLUTAB 30 MG TAB NG SCH (08:51)
[2018-03-22] MEDS: METOLAZONE 2.5 MG TAB PO SCH (08:52)
[2018-03-22] MEDS: METOPROLOL TARTRATE 25 MG TAB PO SCH ×2 (08:52→21:47)
[2018-03-22] MEDS: FUROSEMIDE 40 MG/4 ML VIAL IV PUSH SCH (08:52)
[2018-03-22] MEDS: LACTULOSE SYRUP 20 GM/30 ML CUP PO SCH (08:59)
[2018-03-22 09:00] LABS: AUTOMATED NEUTROPHIL # 5.7 TH/MM3 (1.8-7.7); BASOPHIL # 0.1 TH/MM3 (0-0.2); BASOPHIL % 1.3 % (0.0-2.0); EOSINOPHIL # 0.3 TH/MM3 (0-0.4); EOSINOPHIL % 3.5 % (0.0-4.0); HEMATOCRIT 32.7 % (39.0-51.0); HEMOGLOBIN 10.5 GM/DL (13.0-17.0); LYMPH % 22.5 % (9.0-44.0); LYMPHOCYTE # 1.9 TH/MM3 (1.0-4.8); MEAN CELL VOLUME 97.2 FL (80.0-100.0); MEAN CORPUSCULAR HEMOGLOBIN 31.3 PG (27.0-34.0); MEAN CORPUSCULAR HGB CONC 32.2 % (32.0-36.0); MEAN PLATELET VOLUME 10.9 FL (7.0-11.0); MONOCYTE # 0.6 TH/MM3 (0-0.9); NEUT % 65.7 % (16.0-70.0); PLATELET COUNT 186 TH/MM3 (150-450); RED BLOOD COUNT 3.37 MIL/MM3 (4.50-5.90); RED CELL DISTRIBUTION WIDTH 13.8 % (11.6-17.2); WHITE BLOOD COUNT 8.7 TH/MM3 (4.0-11.0)
[2018-03-22 09:28] LABS: BICARBONATE 31.2 MEQ/L (21.0-32.0); CALCIUM 9.1 MG/DL (8.5-10.1); CREATININE 1.71 MG/DL (0.60-1.30)
--- NOTE | 2018-03-22 10:02 | HHI.NPPN ---
Subjective General Problems: Edema, Hypertension Renal Failure: Chronic, Acute History of Present Illness This is a 67-year-old male with a past medical history of hypertension, hyperlipidemia, chronic kidney disease, history of acute kidney injury, congestive heart failure, chronic obstructive pulmonary disease, history of lymphedema of the leg, morbid obesity, came to the hospital with generalized weakness. Nephrology was called to see the patient because of very high BUN and creatinine and high potassium. The patient has a history of chronic kidney disease and he has recurrent acute kidney injury. The patient now came with a creatinine of 1.9 and a potassium of 6.8. The patient previously has creatinine in the range of 1.4-1.5 most of the time, and he had acute kidney injury in April of last year where the creatinine went up to 3.8. He is not following with any car trimmer according to him on a regular basis. The patient is not a very good historian. Most of the history was taken from patient's chart and some from the patient himself. According to him, he was feeling weak and tired, and he has worsening shortness of breath and he came to the hospital. He denies taking any nonsteroid anti- inflammatory drugs. He denies taking any diuretics. He has this swelling in the legs and he has wound in both legs, for which, according to him, he is doing the dressing by himself. There is no documentation of any antibiotics for him. Additional Remarks Patient is alert. Denies any SOB. Edema improved. Poor appetite (Alana Petty) Review of Systems Respiratory Respiratory Remarks Denies any SOB (Alana Petty) Cardiovascular Cardiac Remarks Denies any CP (Alana Petty) Objective Data Data Vital Signs Date Time Temp Pulse Resp B/P (MAP) Pulse Ox O2 Delivery O2 Flow Rate FiO2 03/22/18 09:03 Nasal Cannula 2.00 03/22/18 08:00 97.8 77 18 121/67 (85) 93 03/22/18 03:14 83 03/22/18 00:03 90 03/22/18 00:00 97.6 81 20 130/76 (94) 93 03/21/18 21:54 92 Nasal Cannula 3.00 Humidified 03/21/18 20:00 98.4 86 20 141/82 (101) 92 03/21/18 19:58 89 03/21/18 19:03 Nasal Cannula 3.00 35 Humidified 03/21/18 16:00 98.2 78 20 149/94 (112) 93 03/21/18 12:00 98.0 83 18 146/87 (106) 95 (Alana Petty) -: 03/22/18 0823 03/22/18 0823 Tubes & Lines: Foster (Alana Petty) Physical Exam General Appearance: No Acute Distress, Obese (Alana Petty) Pulmonary Resp Exam: Breath Sounds Equal, No Distress, Rhonchi, Decreased Bases (Alana Petty) Cardiology CV Exam: Regular (Alana Petty) Gastrointestinal/Abdomen GI Exam: Soft, Non-Tender GI Remarks large (Alana Petty) Genitourinary Exam: Flank Non-Tender Remarks hematuria present (Alana Petty) Integumentary Skin Exam: Clear, Warm (Alana Petty) Extremeties Extremities Exam: Moderate Edema, Pitting Edema, Dependent Edema (Alana Petty) Neurologic Neuro Exam: Alert, Awake, Oriented, Sedated (Alana Petty) Psychiatric Psych Exam: Appropriate Responses (Alana Petty) Assessment/Plan Discussed Condition With: Patient Problem List: (1) CHRISTAL (acute kidney injury) ICD Codes: N17.9 - Acute kidney failure, unspecified Plan: Acute Kidney injury possible related to ATN. CKD possibly related to HTN or renovascular disease. Creatinine is stable and edema is improving. Plan Creatinine stable at 1.71 Continue Lasix 40 mg and metolazone Continue to follow the urine output and BMP intermittently Avoid nephrotoxins. (2) Hyperkalemia ICD Codes: E87.5 - Hyperkalemia Status: Acute Plan: Resolved (3) UTI (urinary tract infection) ICD Codes: N39.0 - Urinary tract infection, site not specified Status: Acute Plan: resolved (Alana Petty) Problem List: (1) CHRISTAL (acute kidney injury) ICD Codes: N17.9 - Acute kidney failure, unspecified Plan: Acute Kidney injury possible related to ATN. CKD possibly related to HTN or renovascular disease. Creatinine is stable and edema is improving. Plan Creatinine stable at 1.71 Continue Lasix 40 mg and metolazone Continue to follow the urine output and BMP intermittently Avoid nephrotoxins. Patient seen and examined,agree with above. Creatinine is stable. (2) Hyperkalemia ICD Codes: E87.5 - Hyperkalemia Status: Acute Plan: Resolved (3) UTI (urinary tract infection) ICD Codes: N39.0 - Urinary tract infection, site not specified Status: Acute Plan: resolved (Mike Quesada MD) Problem Qualifiers (1) UTI (urinary tract infection): Qualified Codes: N39.0 - Urinary tract infection, site not specified Alana Petty Mar 22, 2018 10:02 Mike Quesada MD Mar 22, 2018 17:47
--- NOTE | 2018-03-22 14:01 | HHI.PR ---
Subjective Remarks Follow-up respiratory failure, heart failure, renal failure. The patient is feeling much better today. Reporting pain in his knees. States that the pain medication is not really doing much. Objective Vitals Vital Signs Date Time Temp Pulse Resp B/P (MAP) Pulse Ox O2 Delivery O2 Flow Rate FiO2 03/22/18 12:00 97.5 77 18 147/61 (89) 96 03/22/18 09:03 Nasal Cannula 2.00 03/22/18 08:00 97.8 77 18 121/67 (85) 93 03/22/18 03:14 83 03/22/18 00:03 90 03/22/18 00:00 97.6 81 20 130/76 (94) 93 03/21/18 21:54 92 Nasal Cannula 3.00 Humidified 03/21/18 20:00 98.4 86 20 141/82 (101) 92 03/21/18 19:58 89 03/21/18 19:03 Nasal Cannula 3.00 35 Humidified 03/21/18 16:00 98.2 78 20 149/94 (112) 93 I/O 03/21/18 03/21/18 03/21/18 03/22/18 03/22/18 03/22/18 07:00 15:00 23:00 07:00 15:00 23:00 Intake Total 240 ml 400 ml Output Total 1300 ml 1700 ml Balance -1060 ml -1300 ml Intake Oral 240 ml 400 ml Output Urine Total 1300 ml 1700 ml Result Diagram: 03/22/18 0823 03/22/18 0823 Imaging Last Impressions Chest X-Ray 03/15/18 0600 Signed Impressions: Service Date/Time: Thursday, March 15, 2018 03:19 - CONCLUSION: No significant change. Armond Roman MD Lower Extremity Ultrasound 03/13/18 0000 Signed Impressions: Service Date/Time: Tuesday, March 13, 2018 09:26 - CONCLUSION: Limited by body habitus, negative for DVT.. Alex Trejo MD FACR Renal Ultrasound 02/26/18 0000 Signed Impressions: Service Date/Time: Monday, February 26, 2018 14:30 - CONCLUSION: Stable exam; no evidence of hydronephrosis. Raf Mosqueda MD Objective Remarks General: Morbidly obese male in no acute distress. Heart: Regular rate and rhythm. No murmur. Lungs: Diminished breath sounds bilaterally. Breathing is nonlabored. Abdomen: Soft, nontender, nondistended. Extremities: Lower extremities with lymphedema. Psych: Alert. Answers questions appropriately. Neuro: No focal deficits noted. Procedures 03/01/18 orotracheal intubation 03/01/18 left subclavian central line placement 03/01/18 left radial artery monitoring line Urinary Catheter: Yes Assessment to: Continue Foster insert reason: Obstruction/Retention Vascular Central Line Catheter: No A/P Problem List: (1) Hyperkalemia ICD Code: E87.5 - Hyperkalemia Status: Acute (2) CHRISTAL (acute kidney injury) ICD Code: N17.9 - Acute kidney failure, unspecified (3) UTI (urinary tract infection) ICD Code: N39.0 - Urinary tract infection, site not specified Status: Acute (4) Generalized weakness ICD Code: R53.1 - Weakness (5) CHF (congestive heart failure) ICD Code: I50.9 - Heart failure, unspecified (6) Wound, open, leg ICD Code: S81.809A - Unspecified open wound, unspecified lower leg, initial encounter (7) Acute encephalopathy ICD Code: G93.40 - Encephalopathy, unspecified (8) Hematuria ICD Code: R31.9 - Hematuria, unspecified Assessment and Plan 1. Acute hypoxic respiratory failure: Improved. Continue supplemental oxygen. BiPAP at night. DuoNeb scheduled and albuterol nebs as needed. Continue Symbicort. Patient was extubated on 03/15/18. 2. Acute diastolic heart failure: 2D echocardiogram showed ejection fraction 50 -55% with right atrial dilatation, LVH, and severe tricuspid regurgitation. Continue metoprolol, metolazone. Change to oral Lasix. 3. Community-acquired pneumonia: Present on admission. Completed course of antibiotics. 4. Hypertension: Continue metoprolol, amlodipine. 5. Hyperammonemia: Continue lactulose, Xifaxan. 6. GERD: Continue PPI. 7. Acute kidney injury superimposed on chronic kidney disease: Appreciate nephrology recommendations. Currently on furosemide, metolazone. Renal ultrasound showed no hydronephrosis. Creatinine approximately at patient's baseline. 8. Hyperglycemia of critical illness: Glucose is stable. Discontinue Accu- Cheks. 9. Macrocytic anemia: Monitor labs. 10. Hypernatremia: Improved. 11. Acute toxic metabolic encephalopathy: Resolved. 12. DVT prophylaxis: SCDs, heparin. 13. Abdominal pain: Improved. Patient is afebrile. No leukocytosis. 14. Hematuria: Patient had hematuria with clots following removal of Foster catheter. Appreciate urology recommendations. Foster catheter replaced. Urine is now clear. H&H are stable. 15. Profound weakness: Continue physical therapy, occupational therapy. Discharge Planning Patient will need SNF at discharge. Case management assisting with discharge planning. Anticipate discharge soon. Problem Qualifiers (1) UTI (urinary tract infection): Qualified Codes: N39.0 - Urinary tract infection, site not specified Jose Delgado MD Mar 22, 2018 14:01
[2018-03-22] MEDS: RESP: BUDESONIDE 0.5 MG/2 ML NEB NEB SCH (20:00)
[2018-03-23] VITALS (8 sets, daily range): BP systolic 109–158; BP diastolic 63–76; PULSE 72–86; RESP 16–22; TEMP 97.4–98.2; O2SAT 89–99
[2018-03-23] MEDS: HEPARIN SODIUM - SQ 10,000 UNITS/ML VIAL SQ SCH ×3 (04:55→20:45)
[2018-03-23 06:31] LABS: AUTOMATED NEUTROPHIL # 5.5 TH/MM3 (1.8-7.7); BASOPHIL # 0.1 TH/MM3 (0-0.2); EOSINOPHIL # 0.3 TH/MM3 (0-0.4); HEMATOCRIT 32.9 % (39.0-51.0); HEMOGLOBIN 10.6 GM/DL (13.0-17.0); MEAN CELL VOLUME 96.2 FL (80.0-100.0); MEAN CORPUSCULAR HEMOGLOBIN 31.1 PG (27.0-34.0); MEAN CORPUSCULAR HGB CONC 32.3 % (32.0-36.0); MEAN PLATELET VOLUME 11.1 FL (7.0-11.0); MONO % 8.4 % (0.0-8.0); MONOCYTE # 0.7 TH/MM3 (0-0.9); NEUT % 63.6 % (16.0-70.0); PLATELET COUNT 189 TH/MM3 (150-450); RED BLOOD COUNT 3.42 MIL/MM3 (4.50-5.90); RED CELL DISTRIBUTION WIDTH 13.6 % (11.6-17.2); WHITE BLOOD COUNT 8.7 TH/MM3 (4.0-11.0)
[2018-03-23 06:44] LABS: BICARBONATE 32.7 MEQ/L (21.0-32.0); CALCIUM 9.1 MG/DL (8.5-10.1); CREATININE 1.73 MG/DL (0.60-1.30)
[2018-03-23] MEDS: CHLORHEXIDINE 0.12% (ORAL KIT) 15 ML CUP MT SCH ×2 (07:31→20:00)
[2018-03-23] MEDS: RESP: BUDESONIDE 0.5 MG/2 ML NEB NEB SCH ×2 (07:32→20:00)
[2018-03-23] MEDS: LACTULOSE SYRUP 20 GM/30 ML CUP PO SCH (09:00)
[2018-03-23] MEDS: FUROSEMIDE 40 MG TAB PO SCH (09:45)
[2018-03-23] MEDS: METOPROLOL TARTRATE 25 MG TAB PO SCH ×2 (09:45→20:46)
[2018-03-23] MEDS: SODIUM CHLORIDE 0.9% FLUSH 10 ML FLUSH IV FLUSH SCH ×2 (09:45→20:46)
[2018-03-23] MEDS: LANSOPRAZOLE SOLUTAB 30 MG TAB NG SCH (09:45)
[2018-03-23] MEDS: DOCUSATE SODIUM 50 MG/SENNA 8.6 MG TAB PO SCH ×2 (09:45→20:45)
[2018-03-23] MEDS: METOLAZONE 2.5 MG TAB PO SCH (09:45)
[2018-03-23] MEDS: ACETAMINOPHEN/HYDROcodone 325 MG/5 MG TAB PO PRN ×3 (09:49→20:46)
--- NOTE | 2018-03-23 10:23 | HHI.NPPN ---
Subjective General Problems: Edema, Hypertension Renal Failure: Chronic, Acute History of Present Illness This is a 67-year-old male with a past medical history of hypertension, hyperlipidemia, chronic kidney disease, history of acute kidney injury, congestive heart failure, chronic obstructive pulmonary disease, history of lymphedema of the leg, morbid obesity, came to the hospital with generalized weakness. Nephrology was called to see the patient because of very high BUN and creatinine and high potassium. The patient has a history of chronic kidney disease and he has recurrent acute kidney injury. The patient now came with a creatinine of 1.9 and a potassium of 6.8. The patient previously has creatinine in the range of 1.4-1.5 most of the time, and he had acute kidney injury in April of last year where the creatinine went up to 3.8. 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 The patient is not a very good historian. Most of the history was taken from patient's chart and some from the patient himself. According to him, he was feeling weak and tired, and he has worsening shortness of breath and he came to the hospital. He denies taking any nonsteroid anti- inflammatory drugs. He denies taking any diuretics. He has this swelling in the legs and he has wound in both legs, for which, according to him, he is doing the dressing by himself. There is no documentation of any antibiotics for him. Additional Remarks Patient is alert and oriented. Does not have any complaints. (Alana Petty) Review of Systems Respiratory Respiratory Remarks Denies any SOB (Alana Petty) Cardiovascular Cardiac Remarks Denies any CP (Alana Petty) Objective Data Data Vital Signs Date Time Temp Pulse Resp B/P (MAP) Pulse Ox O2 Delivery O2 Flow Rate FiO2 03/23/18 08:00 98.2 80 16 158/73 (101) 93 03/23/18 07:33 89 21 03/23/18 04:00 76 18 137/63 (87) 92 03/23/18 03:19 81 03/23/18 00:00 98.2 75 18 143/76 (98) 99 03/22/18 20:21 96 Nasal Cannula 2.50 03/22/18 20:00 98.0 73 18 127/61 (83) 96 03/22/18 16:00 97.9 87 17 148/67 (94) 86 03/22/18 12:00 97.5 77 18 147/61 (89) 96 (Alana Petty) -: 03/23/18 0544 03/23/18 0544 Tubes & Lines: Foster (Alana Petty) Physical Exam General Appearance: No Acute Distress, Obese (Alana Petty) Pulmonary Resp Exam: Breath Sounds Equal, No Distress, Rhonchi, Decreased Bases (Alana Petty) Cardiology CV Exam: Regular (Alana Petty) Gastrointestinal/Abdomen GI Exam: Soft, Non-Tender GI Remarks large (Alana Petty) Genitourinary Exam: Flank Non-Tender Remarks hematuria present (Alana Petty) Integumentary Skin Exam: Clear, Warm (Alana Petyt) Extremeties Extremities Exam: Moderate Edema, Pitting Edema, Dependent Edema (Alana Petty) Neurologic Neuro Exam: Alert, Awake, Oriented, Sedated (Alana Petty) Psychiatric Psych Exam: Appropriate Responses (Alana Petty) Assessment/Plan Discussed Condition With: Patient Problem List: (1) CHRISTAL (acute kidney injury) ICD Codes: N17.9 - Acute kidney failure, unspecified Plan: Acute Kidney injury possible related to ATN. CKD possibly related to HTN or renovascular disease. Creatinine is stable and edema is improving. Plan Continue Lasix 40 mg and metolazone Continue to follow the urine output and BMP intermittently Avoid nephrotoxins. (2) Hyperkalemia ICD Codes: E87.5 - Hyperkalemia Status: Acute Plan: Resolved (3) UTI (urinary tract infection) ICD Codes: N39.0 - Urinary tract infection, site not specified Status: Acute Plan: resolved (Alana Petty) Problem List: (1) CHRISTAL (acute kidney injury) ICD Codes: N17.9 - Acute kidney failure, unspecified Plan: Acute Kidney injury possible related to ATN. CKD possibly related to HTN or renovascular disease. Creatinine is stable and edema is improving. Plan Continue Lasix 40 mg and metolazone Continue to follow the urine output and BMP intermittently Avoid nephrotoxins. Patient seen and examined, agree with above. Creatinine is stable. (2) Hyperkalemia ICD Codes: E87.5 - Hyperkalemia Status: Acute Plan: Resolved (3) UTI (urinary tract infection) ICD Codes: N39.0 - Urinary tract infection, site not specified Status: Acute Plan: resolved (Mike Quesada MD) Problem Qualifiers (1) UTI (urinary tract infection): Qualified Codes: N39.0 - Urinary tract infection, site not specified Alana Petty Mar 23, 2018 10:23 Mike Quesada MD Mar 24, 2018 19:06
--- NOTE | 2018-03-23 13:31 | HHI.PR ---
Subjective Remarks Follow-up respiratory failure, profound weakness, heart failure. The patient feels better today. Not requiring oxygen at this time. Pain is adequately controlled at this time. He wants to get out of the hospital soon. Objective Vitals Vital Signs Date Time Temp Pulse Resp B/P (MAP) Pulse Ox O2 Delivery O2 Flow Rate FiO2 03/23/18 12:00 97.4 73 16 126/67 (86) 93 03/23/18 10:00 Nasal Cannula 2.00 Humidified 03/23/18 08:00 98.2 80 16 158/73 (101) 93 03/23/18 07:33 89 21 03/23/18 04:00 76 18 137/63 (87) 92 03/23/18 03:19 81 03/23/18 00:00 98.2 75 18 143/76 (98) 99 03/22/18 20:21 96 Nasal Cannula 2.50 03/22/18 20:00 98.0 73 18 127/61 (83) 96 03/22/18 16:00 97.9 87 17 148/67 (94) 86 I/O 03/22/18 03/22/18 03/22/18 03/23/18 03/23/18 03/23/18 07:00 15:00 23:00 07:00 15:00 23:00 Intake Total 720 ml Output Total 2000 ml 700 ml Balance -1280 ml -700 ml Intake Oral 720 ml Output Urine Total 2000 ml 700 ml Result Diagram: 03/23/18 0544 03/23/18 0544 Imaging Last Impressions Chest X-Ray 03/15/18 0600 Signed Impressions: Service Date/Time: Thursday, March 15, 2018 03:19 - CONCLUSION: No significant change. Armond Roman MD Lower Extremity Ultrasound 03/13/18 0000 Signed Impressions: Service Date/Time: Tuesday, March 13, 2018 09:26 - CONCLUSION: Limited by body habitus, negative for DVT.. Alex Trejo MD FACR Renal Ultrasound 02/26/18 0000 Signed Impressions: Service Date/Time: Monday, February 26, 2018 14:30 - CONCLUSION: Stable exam; no evidence of hydronephrosis. Raf Mosqueda MD Objective Remarks General: Morbidly obese male in no acute distress. Heart: Regular rate and rhythm. No murmur. Lungs: Diminished breath sounds bilaterally. Breathing is nonlabored. Abdomen: Soft, nontender, nondistended. Extremities: Lower extremities with lymphedema. Psych: Alert. Answers questions appropriately. Neuro: No focal deficits noted. Procedures 03/01/18 orotracheal intubation 03/01/18 left subclavian central line placement 03/01/18 left radial artery monitoring line Urinary Catheter: Yes Assessment to: Continue Foster insert reason: Obstruction/Retention A/P Problem List: (1) Hyperkalemia ICD Code: E87.5 - Hyperkalemia Status: Acute (2) CHRISTAL (acute kidney injury) ICD Code: N17.9 - Acute kidney failure, unspecified (3) UTI (urinary tract infection) ICD Code: N39.0 - Urinary tract infection, site not specified Status: Acute (4) Generalized weakness ICD Code: R53.1 - Weakness (5) CHF (congestive heart failure) ICD Code: I50.9 - Heart failure, unspecified (6) Wound, open, leg ICD Code: S81.809A - Unspecified open wound, unspecified lower leg, initial encounter (7) Acute encephalopathy ICD Code: G93.40 - Encephalopathy, unspecified (8) Hematuria ICD Code: R31.9 - Hematuria, unspecified Assessment and Plan 1. Acute hypoxic respiratory failure: Improved. Continue supplemental oxygen. BiPAP at night. DuoNeb scheduled and albuterol nebs as needed. Continue Symbicort. Patient was extubated on 03/15/18. 2. Acute diastolic heart failure: 2D echocardiogram showed ejection fraction 50 -55% with right atrial dilatation, LVH, and severe tricuspid regurgitation. Continue metoprolol, metolazone, Lasix. 3. Community-acquired pneumonia: Present on admission. Completed course of antibiotics. 4. Hypertension: Continue metoprolol, amlodipine. 5. Hyperammonemia: Continue lactulose, Xifaxan. 6. GERD: Continue PPI. 7. Acute kidney injury superimposed on chronic kidney disease: Appreciate nephrology recommendations. Currently on furosemide, metolazone. Renal ultrasound showed no hydronephrosis. Creatinine approximately at patient's baseline. 8. Hyperglycemia of critical illness: Glucose is stable. Discontinue Accu- Cheks. 9. Macrocytic anemia: Monitor labs. 10. Hypernatremia: Improved. 11. Acute toxic metabolic encephalopathy: Resolved. 12. DVT prophylaxis: SCDs, heparin. 13. Abdominal pain: Improved. Patient is afebrile. No leukocytosis. 14. Hematuria: Patient had hematuria with clots following removal of Foster catheter. Appreciate urology recommendations. Foster catheter replaced. Urine is now clear. H&H are stable. 15. Profound weakness: Continue physical therapy, occupational therapy. Discharge Planning Patient will need SNF at discharge. Case management assisting with discharge planning. Anticipate discharge soon. Problem Qualifiers (1) UTI (urinary tract infection): Qualified Codes: N39.0 - Urinary tract infection, site not specified Jose Delgado MD Mar 23, 2018 13:31
--- NOTE | 2018-03-23 14:28 | PD.WCN.NOT ---
Wound Consult Description: Consult for wound management of perianal per Dr Delgado Communicated with: Dr Danny Gimenez, RN Recommendation: Please cleanse wound with NS only. Apply Santyl daily to NS moistened gauze and apply to open wound on perianal area Anatomy of patient should keep dressing in place. Additional Information: Patient seen on for wound management of perianal area. Wound noted anteriorly to anus is full thickness with what appears to be adherent yellow moist necrotic tissue. Calazime is noted to the wound and periwounds making visualization/measurement difficult. Patient has difficulty with repositioning and it is recommended to continue assisting him with this Q2H. Wound etiology appears to be of moisture relation. Patient is noted on a bariatric mattress with one draw sheet and an ultrasorb for moisture. Patient is on a barapy air mattress. Fara Edwards [facility] Mar 23, 2018 14:28
[2018-03-24] VITALS (9 sets, daily range): BP systolic 114–177; BP diastolic 55–78; PULSE 51–98; RESP 16–20; TEMP 97.6–98.4; O2SAT 92–100
[2018-03-24] MEDS: ACETAMINOPHEN/HYDROcodone 325 MG/5 MG TAB PO PRN ×2 (05:26→19:59)
[2018-03-24] MEDS: HEPARIN SODIUM - SQ 10,000 UNITS/ML VIAL SQ SCH ×3 (05:26→20:00)
[2018-03-24] MEDS: RESP: BUDESONIDE 0.5 MG/2 ML NEB NEB SCH ×2 (08:00→20:00)
[2018-03-24] MEDS: SODIUM CHLORIDE 0.9% FLUSH 10 ML FLUSH IV FLUSH SCH ×2 (09:00→20:00)
[2018-03-24] MEDS: METOPROLOL TARTRATE 25 MG TAB PO SCH ×2 (09:08→19:59)
[2018-03-24] MEDS: DOCUSATE SODIUM 50 MG/SENNA 8.6 MG TAB PO SCH ×2 (09:08→19:59)
[2018-03-24] MEDS: FUROSEMIDE 40 MG TAB PO SCH (09:08)
[2018-03-24] MEDS: LANSOPRAZOLE SOLUTAB 30 MG TAB NG SCH (09:08)
[2018-03-24] MEDS: METOLAZONE 2.5 MG TAB PO SCH (09:08)
[2018-03-24] MEDS: LACTULOSE SYRUP 20 GM/30 ML CUP PO SCH (09:08)
[2018-03-24] MEDS: COLLAGENASE OINT 30 GM TUBE TOPICAL SCH (09:09)
[2018-03-24] MEDS: CHLORHEXIDINE 0.12% (ORAL KIT) 15 ML CUP MT SCH ×2 (09:09→20:00)
[2018-03-24] MEDS ORDERED: FURO40TA PO (11:30)
[2018-03-24] MEDS ORDERED: Lactulose Liq PO (11:30)
[2018-03-24] MEDS ORDERED: METO2.5T PO (11:30)
[2018-03-24] MEDS ORDERED: BUDE.5I NEB (11:30)
--- NOTE | 2018-03-24 11:46 | HHI.PR ---
Subjective Remarks She says he is feeling all right. Denies any chest pain or shortness of breath. Denies any nausea or vomiting. Objective Vital Signs Date Time Temp Pulse Resp B/P (MAP) Pulse Ox O2 Delivery O2 Flow Rate FiO2 03/24/18 08:21 93 Nasal Cannula 3.00 03/24/18 08:00 97.8 77 19 177/72 (107) 100 03/24/18 04:00 97.6 76 20 157/72 (100) 94 03/24/18 00:00 98.1 73 20 141/66 (91) 95 03/23/18 20:36 Nasal Cannula 3.00 Humidified 03/23/18 20:00 98.1 86 22 138/70 (92) 96 03/23/18 20:00 92 Nasal Cannula 4.00 03/23/18 16:00 97.9 72 16 109/75 (86) 91 03/23/18 12:00 97.4 73 16 126/67 (86) 93 I/O 03/23/18 03/23/18 03/23/18 03/24/18 03/24/18 03/24/18 07:00 15:00 23:00 07:00 15:00 23:00 Intake Total 560 ml 0 ml 120 ml Output Total 700 ml 2300 ml 950 ml Balance -700 ml -1740 ml -950 ml 120 ml Intake Oral 560 ml 0 ml 120 ml Output Urine Total 700 ml 2300 ml 950 ml # Bowel Movements 0 Result Diagram: 03/23/18 0544 03/23/18 0544 Objective Remarks GENERAL: Patient lying in bed. Appears comfortable. SKIN: Warm and dry. HEAD: Normocephalic. EYES: No scleral icterus. No injection or drainage. NECK: Supple, trachea midline. No JVD. CARDIOVASCULAR: Regular rate and rhythm without murmurs, gallops, or rubs. RESPIRATORY: Breath sounds equal bilaterally. No accessory muscle use. GASTROINTESTINAL: Abdomen soft, non-tender, nondistended. MUSCULOSKELETAL: No cyanosis. Trace edema and chronic hyperkeratotic skin from chronic edema bilaterally. BACK: Nontender without obvious deformity. No CVA tenderness. A/P Assessment and Plan // Acute hypoxic respiratory failure: Improved. Continue supplemental oxygen. BiPAP at night. DuoNeb scheduled and albuterol nebs as needed. Continue Symbicort. Patient was extubated on 03/15/18. = Respiratory status stable. Appreciate pulmonology assistance. // Acute diastolic heart failure: 2D echocardiogram showed ejection fraction 50- 55% with right atrial dilatation, LVH, and severe tricuspid regurgitation. Continue metoprolol, metolazone, Lasix. = Stable. Continue diuretics as ordered. // Community-acquired pneumonia: Present on admission. Completed course of antibiotics. // Hypertension: Continue metoprolol, amlodipine. // Hyperammonemia: Continue lactulose. // GERD: Continue PPI. //Acute kidney injury superimposed on chronic kidney disease: Appreciate nephrology recommendations. Currently on furosemide, metolazone. Renal ultrasound showed no hydronephrosis. Creatinine approximately at patient's baseline. = Continue current regimen. Follow-up with nephrology as outpatient. //Hyperglycemia of critical illness: Glucose is stable. Discontinue Accu-Cheks. // Macrocytic anemia: Monitor labs. // Hypernatremia: Improved. // Acute toxic metabolic encephalopathy: Resolved. // DVT prophylaxis: SCDs, heparin. // Abdominal pain: Improved. Patient is afebrile. No leukocytosis. // Hematuria: Patient had hematuria with clots following removal of Foster catheter. Appreciate urology recommendations. Foster catheter replaced. Urine is now clear. H&H are stable. // Profound weakness: Continue physical therapy, occupational therapy. Discharge Planning Discharge to SNF Harpal Hilario MD Mar 24, 2018 11:46
--- NOTE | 2018-03-24 11:47 | HHI.DS ---
Discharge Summary Admission Date Feb 25, 2018 at 17:54 Discharge Date: Mar 24, 2018 Admitting Diagnosis hyperkalemia, acute renal failure, uti (1) Hyperkalemia ICD Code: E87.5 - Hyperkalemia Status: Acute (2) CHRISTAL (acute kidney injury) ICD Code: N17.9 - Acute kidney failure, unspecified (3) UTI (urinary tract infection) ICD Code: N39.0 - Urinary tract infection, site not specified Status: Acute (4) Generalized weakness ICD Code: R53.1 - Weakness (5) CHF (congestive heart failure) ICD Code: I50.9 - Heart failure, unspecified (6) Wound, open, leg ICD Code: S81.809A - Unspecified open wound, unspecified lower leg, initial encounter (7) Acute encephalopathy ICD Code: G93.40 - Encephalopathy, unspecified (8) Hematuria ICD Code: R31.9 - Hematuria, unspecified Procedures 03/01/18 orotracheal intubation 03/01/18 left subclavian central line placement 03/01/18 left radial artery monitoring line Brief History - From Admission This is a 67-year-old male with a PMH of Morbid Obesity, Prostate CA, HTN, Hyperlipidemia, COPD, Gout, CHF (Echo 09/29/2017 w/ EF 50-55%) who presented to the ER w/ complaints of generalized weakness and bilateral lower extremity pain x1 day. States he ran out of his medications approx 3wks ago, has noticed worsening weakness, unable to pull himself out of bed today. Notes chronic lower extremity wounds for approx 1 year, now w/ worsening drainage. Denies fever or chills. On arrival, BP 148/71, HR 60, O2 sat 98% on 2L NC, Afebrile. WBC normal. K+ 6.8. Creatinine 1.93, previously one-point 03/03 and 09/30/17. Troponin negative. INR 1.1. UA positive UTI. CXR pulmonary venous congestion , early pulmonary edema. S/p Insulin, D50, Ca and Kayexalate in ER. Dr. Quesada consulted for CHRISTAL and Hyperkalemia. S/p Rocephin for UTI CBC/BMP: 03/23/18 0544 03/23/18 0544 Significant Findings Laboratory Tests Test 03/22/18 08:23 03/23/18 05:44 Red Blood Count 3.37 MIL/MM3 (4.50-5.90) 3.42 MIL/MM3 (4.50-5.90) Hemoglobin 10.5 GM/DL (13.0-17.0) 10.6 GM/DL (13.0-17.0) Hematocrit 32.7 % (39.0-51.0) 32.9 % (39.0-51.0) Blood Urea Nitrogen 43 MG/DL (7-18) 41 MG/DL (7-18) Creatinine 1.71 MG/DL (0.60-1.30) 1.73 MG/DL (0.60-1.30) Estimat Glomerular Filtration Rate 49 ML/MIN (>89) 48 ML/MIN (>89) Mean Platelet Volume 11.1 FL (7.0-11.0) Monocytes (%) (Auto) 8.4 % (0.0-8.0) Carbon Dioxide Level 32.7 MEQ/L (21.0-32.0) Imaging Last Impressions Chest X-Ray 03/15/18 0600 Signed Impressions: Service Date/Time: Thursday, March 15, 2018 03:19 - CONCLUSION: No significant change. Armond Roman MD Lower Extremity Ultrasound 03/13/18 0000 Signed Impressions: Service Date/Time: Tuesday, March 13, 2018 09:26 - CONCLUSION: Limited by body habitus, negative for DVT.. Alex Trejo MD FACR Renal Ultrasound 02/26/18 0000 Signed Impressions: Service Date/Time: Monday, February 26, 2018 14:30 - CONCLUSION: Stable exam; no evidence of hydronephrosis. Raf Mosqueda MD PE at Discharge General: Morbidly obese male in no acute distress. Heart: Regular rate and rhythm. No murmur. Lungs: Diminished breath sounds bilaterally. Breathing is nonlabored. Abdomen: Soft, nontender, nondistended. Extremities: Lower extremities with lymphedema. Psych: Alert. Answers questions appropriately. Neuro: No focal deficits noted. Hospital Course // Acute hypoxic respiratory failure: Improved. Continue supplemental oxygen. BiPAP at night. DuoNeb scheduled and albuterol nebs as needed. Continue Symbicort. Patient was extubated on 03/15/18. = Respiratory status stable. Appreciate pulmonology assistance. // Acute diastolic heart failure: 2D echocardiogram showed ejection fraction 50- 55% with right atrial dilatation, LVH, and severe tricuspid regurgitation. Continue metoprolol, metolazone, Lasix. = Stable. Continue diuretics as ordered. // Community-acquired pneumonia: Present on admission. Completed course of antibiotics. // Hypertension: Continue metoprolol, amlodipine. // Hyperammonemia: Continue lactulose. // GERD: Continue PPI. //Acute kidney injury superimposed on chronic kidney disease: Appreciate nephrology recommendations. Currently on furosemide, metolazone. Renal ultrasound showed no hydronephrosis. Creatinine approximately at patient's baseline. = Continue current regimen. Follow-up with nephrology as outpatient. //Hyperglycemia of critical illness: Glucose is stable. Discontinue Accu-Cheks. // Macrocytic anemia: Monitor labs. // Hypernatremia: Improved. // Acute toxic metabolic encephalopathy: Resolved. // DVT prophylaxis: SCDs, heparin. // Abdominal pain: Improved. Patient is afebrile. No leukocytosis. // Hematuria: Patient had hematuria with clots following removal of Foster catheter. Appreciate urology recommendations. Foster catheter replaced. Urine is now clear. H&H are stable. // Profound weakness: Continue physical therapy, occupational therapy. Pt Condition on Discharge: Good Discharge Disposition: Discharge to SNF Discharge Time: > 30 minutes Discharge Instructions DIET: Follow Instructions for: Heart Healthy Diet Activities you can perform: Regular-No Restrictions Follow up Referrals: Nephrology - 1 Week with Mike Quesada MD Pulmonology - 1 Week with Kierra Lozada MD Urology - 1 Week with Jaspal Caballero DO New Medications: Budesonide Neb (Pulmicort Respules) 0.5 Mg/2 Ml Neb 0.5 MG NEB Q12HR NEB for COPD for 30 Days, NEBULE Furosemide (Furosemide) 40 Mg Tab 40 MG PO DAILY for Blood Pressure Management for 30 Days, #30 TAB Metolazone (Metolazone) 2.5 Mg Tab 2.5 MG PO DAILY for Blood Pressure Management for 30 Days, #30 TAB [Lactulose Liq] () 30 ML SYRP 30 ML PO DAILY for 30 Days Continued Medications: Albuterol 18 GM Inh (Ventolin Hfa 18 GM Inh) 90 Mcg/Act Aer 2 PUFF INH Q6H PRN for SHORTNESS OF BREATH, INHALER 0 Refills Albuterol 8.5 GM Inh (Proair Hfa 8.5 GM Inh) 90 Mcg/Act Aer 2 PUFF INH Q6H PRN for SHORTNESS OF BREATH, #1 INHALER 0 Refills 108 mcg/actuation Amlodipine (Amlodipine) 10 Mg Tab 10 MG PO DAILY for Blood Pressure Management, TAB Budesonide-Formoterol Inh (Symbicort Inh) 160-4.5 Mcg/Act Aero 1 PUFF INH Q12HR, #1 INHALER 0 Refills Ergocalciferol (Ergocalciferol) 50,000 Unit Cap 28093 UNITS PO Q7D for vit, #4 CAP 0 Refills Metoprolol Tartrate (Metoprolol Tartrate) 25 Mg Tab 25 MG PO Q12HR for htn, #60 TAB 0 Refills Omeprazole (Omeprazole) 40 Mg Cap 40 MG PO DAILY, CAP Discontinued Medications: Bumetanide (Bumetanide) 1 Mg Tab 1 MG PO DAILY, #30 TAB 0 Refills Metolazone (Metolazone) 5 Mg Tab 5 MG PO DAILY for Blood Pressure Management, #30 TAB Harpal Hilario MD Mar 24, 2018 11:47
--- NOTE | 2018-03-24 17:29 | HHI.NPPN ---
Subjective General Problems: Edema, Hypertension Renal Failure: Chronic, Acute History of Present Illness This is a 67-year-old male with a past medical history of hypertension, hyperlipidemia, chronic kidney disease, history of acute kidney injury, congestive heart failure, chronic obstructive pulmonary disease, history of lymphedema of the leg, morbid obesity, came to the hospital with generalized weakness. Nephrology was called to see the patient because of very high BUN and creatinine and high potassium. The patient has a history of chronic kidney disease and he has recurrent acute kidney injury. The patient now came with a creatinine of 1.9 and a potassium of 6.8. The patient previously has creatinine in the range of 1.4-1.5 most of the time, and he had acute kidney injury in April of last year where the creatinine went up to 3.8. He is not following with any laborer general according to him on a regular basis. The patient is not a very good historian. Most of the history was taken from patient's chart and some from the patient himself. According to him, he was feeling weak and tired, and he has worsening shortness of breath and he came to the hospital. He denies taking any nonsteroid anti- inflammatory drugs. He denies taking any diuretics. He has this swelling in the legs and he has wound in both legs, for which, according to him, he is doing the dressing by himself. There is no documentation of any antibiotics for him. Additional Remarks Patient is resting comfortably. Pruritus reported (Alana Petty) Review of Systems Respiratory Respiratory Remarks Denies any SOB (Alana Petty) Cardiovascular Cardiac Remarks Denies any CP (Alana Petty) Skin Skin Remarks pruritus (Alana Petty) Objective Data Data 03/24/18 03/25/18 19:00 07:00 Intake Total 120 ml Balance 120 ml Intake Oral 120 ml Vital Signs Date Time Temp Pulse Resp B/P (MAP) Pulse Ox O2 Delivery O2 Flow Rate FiO2 03/24/18 16:00 97.7 56 16 123/60 (81) 92 03/24/18 12:00 98.4 51 19 147/78 (101) 96 03/24/18 08:21 93 Nasal Cannula 3.00 03/24/18 08:00 97.8 77 19 177/72 (107) 100 03/24/18 08:00 Nasal Cannula 3.00 Humidified 03/24/18 04:00 97.6 76 20 157/72 (100) 94 03/24/18 00:00 98.1 73 20 141/66 (91) 95 03/23/18 20:36 Nasal Cannula 3.00 Humidified 03/23/18 20:00 98.1 86 22 138/70 (92) 96 03/23/18 20:00 92 Nasal Cannula 4.00 (Alana Petty) -: 03/23/18 0544 03/23/18 0544 Tubes & Lines: Foster (Alana Petty) Physical Exam General Appearance: No Acute Distress, Obese (Alana Petty) Pulmonary Resp Exam: Breath Sounds Equal, No Distress, Rhonchi, Decreased Bases (Alana Petty) Cardiology CV Exam: Regular (Alana Petty) Gastrointestinal/Abdomen GI Exam: Soft, Non-Tender GI Remarks large (Alana Petty) Genitourinary Exam: Flank Non-Tender Remarks hematuria present (Alana Petty) Integumentary Skin Exam: Clear, Warm (Alana Petty) Extremeties Extremities Exam: Moderate Edema, Pitting Edema, Dependent Edema (Alana Petty) Neurologic Neuro Exam: Alert, Awake, Oriented, Sedated (Alana Petty) Psychiatric Psych Exam: Appropriate Responses (Alana Petty) Assessment/Plan Discussed Condition With: Patient Problem List: (1) CHRISTAL (acute kidney injury) ICD Codes: N17.9 - Acute kidney failure, unspecified Plan: Acute Kidney injury possible related to ATN. CKD possibly related to HTN or renovascular disease. Creatinine is stable Plan Continue Lasix 40 mg Metalozone discontinued. Continue to follow the urine output and BMP intermittently Avoid nephrotoxins. (2) Hyperkalemia ICD Codes: E87.5 - Hyperkalemia Status: Acute Plan: Resolved (3) UTI (urinary tract infection) ICD Codes: N39.0 - Urinary tract infection, site not specified Status: Acute Plan: resolved (Alana Petty) Problem List: (1) CHRISTAL (acute kidney injury) ICD Codes: N17.9 - Acute kidney failure, unspecified Plan: Acute Kidney injury possible related to ATN. CKD possibly related to HTN or renovascular disease. Creatinine is stable Plan Continue Lasix 40 mg Metalozone discontinued. Continue to follow the urine output and BMP intermittently Avoid nephrotoxins. Patient seen and examined, agree with above. Creatinine is stable, continue diuretics. (2) Hyperkalemia ICD Codes: E87.5 - Hyperkalemia Status: Acute Plan: Resolved (3) UTI (urinary tract infection) ICD Codes: N39.0 - Urinary tract infection, site not specified Status: Acute Plan: resolved (Mike Quesada MD) Problem Qualifiers (1) UTI (urinary tract infection): Qualified Codes: N39.0 - Urinary tract infection, site not specified Alana Petty Mar 24, 2018 17:29 Mike Quesada MD Mar 25, 2018 18:54
[2018-03-24] MEDS ORDERED: EUCERIN CREAM 120 GM JAR TOPICAL PRN (18:00)
[2018-03-25] VITALS (7 sets, daily range): BP systolic 122–133; BP diastolic 60–85; PULSE 57–88; RESP 14–22; TEMP 97.2–98.6; O2SAT 91–100
[2018-03-25] MEDS: ACETAMINOPHEN/HYDROcodone 325 MG/5 MG TAB PO PRN ×3 (05:58→14:06)
[2018-03-25] MEDS: HEPARIN SODIUM - SQ 10,000 UNITS/ML VIAL SQ SCH ×3 (05:59→20:48)
[2018-03-25] MEDS: CHLORHEXIDINE 0.12% (ORAL KIT) 15 ML CUP MT SCH ×2 (07:12→20:00)
[2018-03-25] MEDS: FUROSEMIDE 40 MG TAB PO SCH (08:19)
[2018-03-25] MEDS: LACTULOSE SYRUP 20 GM/30 ML CUP PO SCH ×2 (08:20→09:00)
[2018-03-25] MEDS: LANSOPRAZOLE SOLUTAB 30 MG TAB NG SCH (08:20)
[2018-03-25] MEDS: DOCUSATE SODIUM 50 MG/SENNA 8.6 MG TAB PO SCH ×2 (08:20→20:48)
[2018-03-25] MEDS: METOPROLOL TARTRATE 25 MG TAB PO SCH ×2 (08:20→20:48)
[2018-03-25] MEDS: RESP: BUDESONIDE 0.5 MG/2 ML NEB NEB SCH ×2 (08:28→19:53)
[2018-03-25] MEDS: SODIUM CHLORIDE 0.9% FLUSH 10 ML FLUSH IV FLUSH SCH ×2 (09:00→20:48)
[2018-03-25] MEDS: COLLAGENASE OINT 30 GM TUBE TOPICAL SCH (09:00)
--- NOTE | 2018-03-25 15:14 | HHI.NPPN ---
Subjective General Problems: Edema, Hypertension Renal Failure: Chronic, Acute History of Present Illness This is a 67-year-old male with a past medical history of hypertension, hyperlipidemia, chronic kidney disease, history of acute kidney injury, congestive heart failure, chronic obstructive pulmonary disease, history of lymphedema of the leg, morbid obesity, came to the hospital with generalized weakness. Nephrology was called to see the patient because of very high BUN and creatinine and high potassium. The patient has a history of chronic kidney disease and he has recurrent acute kidney injury. The patient now came with a creatinine of 1.9 and a potassium of 6.8. The patient previously has creatinine in the range of 1.4-1.5 most of the time, and he had acute kidney injury in April of last year where the creatinine went up to 3.8. He is not following with any radar tester according to him on a regular basis. The patient is not a very good historian. Most of the history was taken from patient's chart and some from the patient himself. According to him, he was feeling weak and tired, and he has worsening shortness of breath and he came to the hospital. He denies taking any nonsteroid anti- inflammatory drugs. He denies taking any diuretics. He has this swelling in the legs and he has wound in both legs, for which, according to him, he is doing the dressing by himself. There is no documentation of any antibiotics for him. Additional Remarks Patient is resting comfortably. No complaints (Alana Petty) Review of Systems Respiratory Respiratory Remarks Denies any SOB (Alana Petty) Cardiovascular Cardiac Remarks Denies any CP (Alana Petty) Skin Skin Remarks pruritus (Alana Petty) Objective Data Data Vital Signs Date Time Temp Pulse Resp B/P (MAP) Pulse Ox O2 Delivery O2 Flow Rate FiO2 03/25/18 12:00 97.6 60 16 131/60 (83) 92 03/25/18 08:30 92 Nasal Cannula 3.00 03/25/18 08:00 Nasal Cannula 3.00 Humidified 03/25/18 07:48 78 03/25/18 07:35 97.2 59 14 129/65 (86) 96 03/25/18 06:01 Nasal Cannula 3.00 Humidified 03/25/18 04:00 97.8 65 22 133/71 (91) 97 03/24/18 20:25 95 21 03/24/18 20:15 98.3 98 18 123/55 (77) 93 03/24/18 16:00 97.7 56 16 123/60 (81) 92 (Alana Petty) -: 03/23/18 0544 03/23/18 0544 Tubes & Lines: Foster (Alana Petty) Physical Exam General Appearance: No Acute Distress, Obese (Alana Petty) Pulmonary Resp Exam: Breath Sounds Equal, No Distress, Rhonchi, Decreased Bases (Alana Petty) Cardiology CV Exam: Regular (Alana Petty) Gastrointestinal/Abdomen GI Exam: Soft, Non-Tender GI Remarks large (Alana Petty) Genitourinary Exam: Flank Non-Tender Remarks hematuria present (Alana Petty) Integumentary Skin Exam: Clear, Warm (Alana Petty) Extremeties Extremities Exam: Moderate Edema, Pitting Edema, Dependent Edema (Alana Petty) Neurologic Neuro Exam: Alert, Awake, Oriented, Sedated (Alana Petty) Psychiatric Psych Exam: Appropriate Responses (Alana Petty) Assessment/Plan Discussed Condition With: Patient Problem List: (1) CHRISTAL (acute kidney injury) ICD Codes: N17.9 - Acute kidney failure, unspecified Plan: Acute Kidney injury possible related to ATN. CKD possibly related to HTN or renovascular disease. Creatinine is stable and edema is improving. Plan Continue Lasix 40 mg Continue to follow the urine output and BMP intermittently Avoid nephrotoxins. discharge plans underway (2) Hyperkalemia ICD Codes: E87.5 - Hyperkalemia Status: Acute Plan: Resolved (3) UTI (urinary tract infection) ICD Codes: N39.0 - Urinary tract infection, site not specified Status: Acute Plan: resolved (Alana Petty) Problem List: (1) CHRISTAL (acute kidney injury) ICD Codes: N17.9 - Acute kidney failure, unspecified Plan: Acute Kidney injury possible related to ATN. CKD possibly related to HTN or renovascular disease. Creatinine is stable and edema is improving. Plan Continue Lasix 40 mg Continue to follow the urine output and BMP intermittently Avoid nephrotoxins. discharge plans underway. Patient seen and examined, agree with above. If discharge, will need out patient follow up. (2) Hyperkalemia ICD Codes: E87.5 - Hyperkalemia Status: Acute Plan: Resolved (3) UTI (urinary tract infection) ICD Codes: N39.0 - Urinary tract infection, site not specified Status: Acute Plan: resolved (Mike Quesada MD) Problem Qualifiers (1) UTI (urinary tract infection): Qualified Codes: N39.0 - Urinary tract infection, site not specified Alana Petty Mar 25, 2018 15:14 Mike Quesada MD Mar 25, 2018 19:06
--- NOTE | 2018-03-25 23:03 | HHI.PR ---
Subjective Remarks Patient seen this morning around 2 AM. If she is feeling all right. Denies any chest pain or shortness of breath Objective Vital Signs Date Time Temp Pulse Resp B/P (MAP) Pulse Ox O2 Delivery O2 Flow Rate FiO2 03/25/18 20:42 Nasal Cannula 2.00 Humidified 03/25/18 20:00 98.6 88 20 126/85 (99) 91 03/25/18 19:54 Nasal Cannula 3.00 03/25/18 16:00 97.4 57 16 122/60 (80) 100 03/25/18 12:00 97.6 60 16 131/60 (83) 92 03/25/18 08:30 92 Nasal Cannula 3.00 03/25/18 08:00 Nasal Cannula 3.00 Humidified 03/25/18 07:48 78 03/25/18 07:35 97.2 59 14 129/65 (86) 96 03/25/18 06:01 Nasal Cannula 3.00 Humidified 03/25/18 04:00 97.8 65 22 133/71 (91) 97 I/O 03/25/18 03/25/18 03/25/18 03/26/18 03/26/18 03/26/18 07:00 15:00 23:00 07:00 15:00 23:00 Intake Total 420 ml Output Total 850 ml Balance -430 ml Intake Oral 420 ml Output Urine Total 850 ml # Bowel Movements 0 Result Diagram: 03/23/18 0544 03/23/18 0544 Objective Remarks GENERAL: Patient lying in bed. Appears comfortable.no change on exam SKIN: Warm and dry. HEAD: Normocephalic. EYES: No scleral icterus. No injection or drainage. NECK: Supple, trachea midline. No JVD. CARDIOVASCULAR: Regular rate and rhythm without murmurs, gallops, or rubs. RESPIRATORY: Breath sounds equal bilaterally. No accessory muscle use. GASTROINTESTINAL: Abdomen soft, non-tender, nondistended. MUSCULOSKELETAL: No cyanosis. Trace edema and chronic hyperkeratotic skin from chronic edema bilaterally. BACK: Nontender without obvious deformity. No CVA tenderness. A/P Assessment and Plan 03/25. Patient seen and examined. No changes on exam. No changes in management. Discussed with case management and nursing // Acute hypoxic respiratory failure: Improved. Continue supplemental oxygen. BiPAP at night. DuoNeb scheduled and albuterol nebs as needed. Continue Symbicort. Patient was extubated on 03/15/18. = Respiratory status stable. Appreciate pulmonology assistance. // Acute diastolic heart failure: 2D echocardiogram showed ejection fraction 50- 55% with right atrial dilatation, LVH, and severe tricuspid regurgitation. Continue metoprolol, metolazone, Lasix. = Stable. Continue diuretics as ordered. // Community-acquired pneumonia: Present on admission. Completed course of antibiotics. // Hypertension: Continue metoprolol, amlodipine. // Hyperammonemia: Continue lactulose. // GERD: Continue PPI. //Acute kidney injury superimposed on chronic kidney disease: Appreciate nephrology recommendations. Currently on furosemide, metolazone. Renal ultrasound showed no hydronephrosis. Creatinine approximately at patient's baseline. = Continue current regimen. Follow-up with nephrology as outpatient. //Hyperglycemia of critical illness: Glucose is stable. Discontinue Accu-Cheks. // Macrocytic anemia: Monitor labs. // Hypernatremia: Improved. // Acute toxic metabolic encephalopathy: Resolved. // DVT prophylaxis: SCDs, heparin. // Abdominal pain: Improved. Patient is afebrile. No leukocytosis. // Hematuria: Patient had hematuria with clots following removal of Foster catheter. Appreciate urology recommendations. Foster catheter replaced. Urine is now clear. H&H are stable. // Profound weakness: Continue physical therapy, occupational therapy. Discharge Planning Discharge to SNF Harpal Hilario MD Mar 25, 2018 23:03
[2018-03-26] VITALS (7 sets, daily range): BP systolic 137–149; BP diastolic 62–67; PULSE 61–98; RESP 16–20; TEMP 97.4–98.2; O2SAT 94–100
[2018-03-26] MEDS: ACETAMINOPHEN/HYDROcodone 325 MG/5 MG TAB PO PRN ×2 (04:58→14:18)
[2018-03-26] MEDS: HEPARIN SODIUM - SQ 10,000 UNITS/ML VIAL SQ SCH ×2 (04:59→14:19)
[2018-03-26] MEDS: CHLORHEXIDINE 0.12% (ORAL KIT) 15 ML CUP MT SCH (07:25)
[2018-03-26] MEDS: LACTULOSE SYRUP 20 GM/30 ML CUP PO SCH (07:25)
[2018-03-26] MEDS: SODIUM CHLORIDE 0.9% FLUSH 10 ML FLUSH IV FLUSH SCH (09:00)
[2018-03-26] MEDS: COLLAGENASE OINT 30 GM TUBE TOPICAL SCH (09:00)
[2018-03-26] MEDS: LANSOPRAZOLE SOLUTAB 30 MG TAB NG SCH (09:27)
[2018-03-26] MEDS: METOPROLOL TARTRATE 25 MG TAB PO SCH (09:28)
[2018-03-26] MEDS: FUROSEMIDE 40 MG TAB PO SCH (09:28)
[2018-03-26] MEDS: DOCUSATE SODIUM 50 MG/SENNA 8.6 MG TAB PO SCH (09:28)
[2018-03-26] MEDS: RESP: BUDESONIDE 0.5 MG/2 ML NEB NEB SCH (09:31)
--- NOTE | 2018-03-26 10:18 | HHI.NPPN ---
Subjective General Problems: Edema, Hypertension Renal Failure: Chronic, Acute History of Present Illness This is a 67-year-old male with a past medical history of hypertension, hyperlipidemia, chronic kidney disease, history of acute kidney injury, congestive heart failure, chronic obstructive pulmonary disease, history of lymphedema of the leg, morbid obesity, came to the hospital with generalized weakness. Nephrology was called to see the patient because of very high BUN and creatinine and high potassium. The patient has a history of chronic kidney disease and he has recurrent acute kidney injury. The patient now came with a creatinine of 1.9 and a potassium of 6.8. The patient previously has creatinine in the range of 1.4-1.5 most of the time, and he had acute kidney injury in April of last year where the creatinine went up to 3.8. He is not following with any white kid buffer according to him on a regular basis. The patient is not a very good historian. Most of the history was taken from patient's chart and some from the patient himself. According to him, he was feeling weak and tired, and he has worsening shortness of breath and he came to the hospital. He denies taking any nonsteroid anti- inflammatory drugs. He denies taking any diuretics. He has this swelling in the legs and he has wound in both legs, for which, according to him, he is doing the dressing by himself. There is no documentation of any antibiotics for him. Additional Remarks Patient is resting comfortably. Condition unchanged. (Alana Petty) Review of Systems Respiratory Respiratory Remarks Denies any SOB (Alana Petty) Cardiovascular Cardiac Remarks Denies any CP (Alana Petty) Skin Skin Remarks pruritus (Alana Petty) Objective Data Data Vital Signs Date Time Temp Pulse Resp B/P (MAP) Pulse Ox O2 Delivery O2 Flow Rate FiO2 03/26/18 09:33 94 Nasal Cannula 3.00 03/26/18 07:19 97.8 65 16 137/62 (87) 94 03/26/18 04:00 97.4 86 20 149/67 (94) 100 03/26/18 01:29 77 03/26/18 00:00 98.2 61 20 137/66 (89) 94 03/25/18 20:42 Nasal Cannula 2.00 Humidified 03/25/18 20:00 98.6 88 20 126/85 (99) 91 03/25/18 19:54 Nasal Cannula 3.00 03/25/18 16:00 97.4 57 16 122/60 (80) 100 03/25/18 12:00 97.6 60 16 131/60 (83) 92 (Alana Petty) -: 03/23/18 0544 03/23/18 0544 Tubes & Lines: Foster (Alana Petty) Physical Exam General Appearance: No Acute Distress, Obese (Alana Petty) Pulmonary Resp Exam: Breath Sounds Equal, No Distress, Rhonchi, Decreased Bases (Alana Petty) Cardiology CV Exam: Regular (Alana Petty) Gastrointestinal/Abdomen GI Exam: Soft, Non-Tender GI Remarks large (Alana Petty) Genitourinary Exam: Flank Non-Tender Remarks hematuria present (Alana Petty) Integumentary Skin Exam: Clear, Warm (Alana Petty) Extremeties Extremities Exam: Moderate Edema, Pitting Edema, Dependent Edema (Alana Petty) Neurologic Neuro Exam: Alert, Awake, Oriented, Sedated (Alana Petty) Psychiatric Psych Exam: Appropriate Responses (Alana Petty) Assessment/Plan Discussed Condition With: Patient Problem List: (1) CHRISTAL (acute kidney injury) ICD Codes: N17.9 - Acute kidney failure, unspecified Plan: Acute Kidney injury possible related to ATN. CKD possibly related to HTN or renovascular disease. Creatinine is stable and edema is improving. Plan Continue Lasix 40 mg Continue to follow the urine output and BMP intermittently Avoid nephrotoxins. If discharge, will need out patient follow up. (2) Hyperkalemia ICD Codes: E87.5 - Hyperkalemia Status: Acute Plan: Resolved (3) UTI (urinary tract infection) ICD Codes: N39.0 - Urinary tract infection, site not specified Status: Acute Plan: resolved (Alana Petty) Problem List: (1) CHRISTAL (acute kidney injury) ICD Codes: N17.9 - Acute kidney failure, unspecified Plan: Acute Kidney injury possible related to ATN. CKD possibly related to HTN or renovascular disease. Creatinine is stable and edema is improving. Plan Continue Lasix 40 mg Continue to follow the urine output and BMP intermittently Avoid nephrotoxins. If discharge, will need out patient follow up. Patient seen and examined, agree with above. For discharge to follow as out patient in 1 month. (2) Hyperkalemia ICD Codes: E87.5 - Hyperkalemia Status: Acute Plan: Resolved (3) UTI (urinary tract infection) ICD Codes: N39.0 - Urinary tract infection, site not specified Status: Acute Plan: resolved (Mike Quesada MD) Problem Qualifiers (1) UTI (urinary tract infection): Qualified Codes: N39.0 - Urinary tract infection, site not specified Alana Petty Mar 26, 2018 10:18 Mike Quesada MD Mar 28, 2018 11:44
[2018-03-26] MEDS ORDERED: HYDR-3516 PO (14:13)
== END 2018-03-26 16:21 | DRG 207 ==
LOC: NEPE 14:50 → NEDA 17:54 → NEPHCDU 20:55 → N07A 02-26 17:57 → HIMN 02-27 00:25 → HCIS 02-28 11:37 → HCVI 03-01 14:07 → HIMW 03-02 05:05 → N07B 03-16 22:15
PROVIDERS: ADMIT Internal Medicine; ATTEND Internal Medicine
PROC: 5A09357 Assistance with Respiratory Ventilation, Less than 24 Consecutive Hours, Continuous Positive Airway Pressure (ICD-10-PCS; 2018-02-27)
PROC: 5A1955Z Respiratory Ventilation, Greater than 96 Consecutive Hours (ICD-10-PCS; principal; 2018-03-01)
PROC: 03HY32Z Insertion of Monitoring Device into Upper Artery, Percutaneous Approach (ICD-10-PCS; 2018-03-01)
PROC: 0BH17EZ Insertion of Endotracheal Airway into Trachea, Via Natural or Artificial Opening (ICD-10-PCS; 2018-03-01)
PROC: 05H633Z Insertion of Infusion Device into Left Subclavian Vein, Percutaneous Approach (ICD-10-PCS; 2018-03-01)
DX: J96.21 Acute and chronic respiratory failure with hypoxia (principal); N17.0 Acute kidney failure with tubular necrosis; R57.0 Cardiogenic shock; J18.9 Pneumonia, unspecified organism; I50.33 Acute on chronic diastolic (congestive) heart failure; G93.41 Metabolic encephalopathy; J44.0 Chronic obstructive pulmonary disease with (acute) lower respiratory infection; I47.2 Ventricular tachycardia; I13.0 Hypertensive heart and chronic kidney disease with heart failure and stage 1 through stage 4 chronic kidney disease, or unspecified chronic kidney disease; E87.0 Hyperosmolality and hypernatremia; E44.0 Moderate protein-calorie malnutrition; E87.2 Acidosis; Z68.44 Body mass index [BMI] 60.0-69.9, adult; N39.0 Urinary tract infection, site not specified; E11.22 Type 2 diabetes mellitus with diabetic chronic kidney disease; J96.22 Acute and chronic respiratory failure with hypercapnia; E66.01 Morbid (severe) obesity due to excess calories; M19.90 Unspecified osteoarthritis, unspecified site; K21.9 Gastro-esophageal reflux disease without esophagitis; M10.9 Gout, unspecified; N18.9 Chronic kidney disease, unspecified; E78.5 Hyperlipidemia, unspecified; F17.210 Nicotine dependence, cigarettes, uncomplicated; G47.33 Obstructive sleep apnea (adult) (pediatric); E87.5 Hyperkalemia; I89.0 Lymphedema, not elsewhere classified; E11.65 Type 2 diabetes mellitus with hyperglycemia; I25.9 Chronic ischemic heart disease, unspecified; D53.9 Nutritional anemia, unspecified; I07.1 Rheumatic tricuspid insufficiency; J98.01 Acute bronchospasm; M81.0 Age-related osteoporosis without current pathological fracture; R31.0 Gross hematuria; Z85.46 Personal history of malignant neoplasm of prostate; Z92.3 Personal history of irradiation
CPT/HCPCS: 31500; 36556; 36600; 71045; 76775; 76937; 80048; 80053; 80076; 80202; 80307; 81001; 82140; 82306; 82550; 82552; 82607; 82746; 82805; 82948; 83735; 83880; 84100; 84132; 84133; 84443; 84484; 85014; 85018; 85025; 85027; 85610; 85730; 87040; 87070; 87086; 87205; 87493; 87641; 87804; 93005; 93308; 93970; 94002; 94003; 94640; 94664; 96365; 96375; J0171; J0360; J0461; J0610; J0696; J1170; J1644; J1815; J1940; J2250; J2260; J2270; J2405; J3010; J3370; J7030; J7040; J7611; J7613; J7626

== ENCOUNTER 2018-10-04 13:07 | Inpatient (IN) ==
[2018-10-04] MEDS ORDERED: Diatrizoate Meglum/Diatrizoate Sod Liq 9 ML UDC PO ONE (15:12)
[2018-10-04] MEDS ORDERED: Morphine Inj 4 MG/ML Vial IV.PUSH ONE (15:12)
[2018-10-04] MEDS ORDERED: Sod Chloride 0.9% Inj 1,000 ML IV.CONT SCH (15:15)
--- NOTE | 2018-10-04 15:22 | ED ---
HPI General Chief Complaint: Abdominal Pain Stated Complaint: Abd pain Time Seen by Provider: 10/04/18 14:53 Source: patient Mode of arrival: EMS Limitations: no limitations History of Present Illness HPI narrative: The patient is a 68-year-old -[place] male who presents to the emergency department via EMS for abdominal pain and diarrhea. The patient states his symptoms started on Thursday with left lower quadrant abdominal pain followed by diarrhea. The patient describes the diarrhea as loose, brown, without any visible blood. The patient denies any nausea or vomiting. The pain is located in the left lower quadrant migrates to the periumbilical area. The patient recently was on an antibiotic after he avulsed the nail on his foot, was placed on antibiotics by his primary physician as he is a diabetic. The patient denies any current fever, chills, or sweats. He denies any sick contacts at home, states he lives alone. The patient denies any history of C. difficile, diverticulitis, or colitis. Symptoms are moderate , pain is currently an 8/10, and there are no current alleviating factors. MD complaint: Reports abdominal pain Onset (ago): day(s) Pain Consistency: constant Location: Reports LLQ Severity: severe Severity scale (1-10): 8 Quality: Reports fullness and sharp Radiation: Reports none Migration to: Reports periumbilical Relieving factors: nothing Exacerbating factors: nothing Associated symptoms: Reports diarrhea Related Data Home Medications Medication Instructions Recorded Confirmed albuterol sulfate [Ventolin HFA] 2 puff INHALATION DAILY 10/04/18 10/04/18 amlodipine 5 mg PO DAILY 10/04/18 10/04/18 budesonide-formoterol [Symbicort] 1 puff INHALATION BID 10/04/18 10/04/18 furosemide [Lasix] 40 mg PO DAILY 10/04/18 10/04/18 hydralazine 100 mg PO TID 10/04/18 10/04/18 insulin glargine [Lantus Solostar 55 unit SUBCUT HS 10/04/18 10/04/18 U-100 Insulin] lisinopril 20 mg PO DAILY 10/04/18 10/04/18 metformin 1,000 mg PO DAILY 10/04/18 10/04/18 metoprolol tartrate 100 mg PO QAM 10/04/18 10/04/18 omeprazole 40 mg PO DAILY 10/04/18 10/04/18 spironolactone 25 mg PO DAILY 10/04/18 10/04/18 Allergies Allergy/AdvReac Type Severity Reaction Status Date / Time No Known Allergies Allergy Verified 10/04/18 14:59 Review of Systems ROS: all other systems reviewed are negative [facility] Medical History Medical History CHF (congestive heart failure) (Acute) COPD (chronic obstructive pulmonary disease) (Acute) Diabetes mellitus (Acute) HTN (hypertension) (Acute) Lymphedema (Acute) Pressure ulcer (Acute) Sleep apnea (Acute) Surgical History Surgical History History of carpal tunnel surgery of right wrist (Acute) Social History Social History Substance History: No History of Abuse Smoking Status: Current every day smoker Tobacco Type: Cigarettes How Often Do You Have a Drink Containing Alcohol: Never Recent Travel in [facility] within the Last 8 Weeks: No Recent Out of Country Travel within the Last 8 Weeks: No Immunization History Tetanus Immunization: >5 Years Exam Narrative Exam Narrative: GENERAL: Awake, alert, pleasant 68-year-old male who appears his stated age and is in Tory distress. SKIN: Focused skin assessment warm/dry. HEAD: Atraumatic. Normocephalic. EYES: No scleral icterus noted. ENT: No nasal bleeding or discharge. Poor dentition. NECK: Trachea midline. No JVD. CARDIOVASCULAR: Regular rate and rhythm. No murmur appreciated. RESPIRATORY: No accessory muscle use. Clear to auscultation. Breath sounds equal bilaterally. GASTROINTESTINAL: Abdomen obese, tender to palpation left lower quadrant and left flank. No guarding or rigidity. MUSCULOSKELETAL: No cyanosis or clubbing. NEUROLOGICAL: Awake and alert. No obvious cranial nerve deficits. Motor grossly within normal limits. Normal speech. PSYCHIATRIC: Appropriate mood and affect; insight and judgment normal. Course Initial Documented Vital Signs Respiratory Rate 16 10/04/18 14:56 Blood Pressure 167/72 H 10/04/18 14:56 Pulse Oximetry 96 10/04/18 14:56 Last Documented Vital Signs Pulse Rate 86 10/04/18 17:59 Respiratory Rate 12 10/04/18 17:59 Blood Pressure 147/81 H 10/04/18 17:59 Pulse Oximetry 99 10/04/18 17:59 Sign Out Sign Out Data: Patient Sign Out occurred on 10/04/18 at 17:46. Patient's care was discussed, and care was transferred from Adolph Cleveland MD to Maikel Case MD. Sign Out Comment: 68-year-old male who presents to the emergency department for abdominal pain and diarrhea of 3 days duration. Abdominal exam reveals a large pannus with left lower quadrant abdominal pain. Laboratory evaluation revealed hyperkalemia, labs were redrawn, patient does have potassium of 7.[address] of the abdomen and pelvis is pending. Patient was ordered bicarb , insulin, D50, an EKG was ordered. Patient does have a history of congestive heart failure, therefore, IV fluid bolus was not ordered, but Lasix 20 mg intravenously was ordered. Patient will require admission after CT of the abdomen and pelvis is performed. Last updated by Adolph Cleveland MD at 10/04/18 17:38 Post-Handoff Eval: This is a bit more sluggish. No complaints. Repeating his potassium. CT scan does not show any diverticulitis. Recent antibiotic exposure. At risk for C. difficile. We will plan on admission to the ICU, close monitoring. Medical Decision Making MDM Narrative Medical decision making narrative: IV was established, labs are drawn and sent, and the patient was placed on cardiac telemetry monitoring and continuous pulse oximetry monitoring. CT of the abdomen and pelvis with oral contrast, but no IV contrast secondary to chronic CKD was ordered to evaluate for colitis/ diverticulitis. The patient received morphine, Zofran, and maintenance IV fluids. Medical Screen Exam Complete: Yes Emergency Medical Condition: Yes Differential Diagnosis Differential Diagnosis: Differential diagnosis includes diverticulitis, colitis , mesenteric ischemia, atypical appendicitis, pancreatitis, partial small bowel obstruction. Lab Data Result diagrams: 10/04/18 15:28 10/04/18 16:30 Lab Results 10/04/18 10/04/18 10/04/18 Range/Units 15:20 15:28 16:00 WBC 6.8 (4.0-11.0) th/mm3 RBC 3.07 L (4.50-5.90) mil/mm3 Hgb 10.1 L (13.0-17.0) gm/dL Hct 32.6 L (39.0-51.0) % MCV 106.1 H (80.0-100.0) fL MCH 33.0 (27.0-34.0) pg MCHC 31.1 L (32.0-36.0) % RDW 17.7 H (11.6-17.2) % Plt Count 116 L (150-450) th/mm3 MPV 11.1 H (7.0-11.0) fL Neut % (Auto) 60.2 (16.0-70.0) % Lymph % (Auto) 24.0 (9.0-44.0) % Bleckley % (Auto) 11.8 H (0.0-8.0) % Eos % (Auto) 3.1 (0.0-4.0) % Baso % (Auto) 0.9 (0.0-2.0) % Neut # (Auto) 4.1 (1.8-7.7) th/mm3 Lymph # (Auto) 1.6 (1.0-4.8) th/mm3 Bleckley # (Auto) 0.8 (0.0-0.9) th/mm3 Eos # (Auto) 0.2 (0.0-0.4) th/mm3 Baso # (Auto) 0.1 (0.0-0.2) th/mm3 WBC Differential . Differential Comment Auto diff final Sodium (136-145) meq/L Potassium (3.5-5.1) meq/L Chloride (98-107) meq/L Carbon Dioxide (21.0-32.0) meq/L Anion Gap (5-15) meq/L BUN (7-18) mg/dL Creatinine (0.60-1.30) mg/dL Estimated GFR (>89) mL/min POC Glucose (68-110) mg/dl Random Glucose (74-106) mg/dL Lactic Acid 0.6 (0.4-2.0) mmol/L Calcium (8.5-10.1) mg/dL Magnesium (1.5-2.5) mg/dL Total Bilirubin (0.2-1.0) mg/dL AST (15-37) U/L ALT (12-78) U/L Alkaline Phosphatase (45-117) U/L Total Protein (6.4-8.2) g/dL Albumin (3.4-5.0) g/dL Lipase (73-393) U/L Urine Color Yellow (Yellw/Straw) Urine Clarity Hazy H (Clear) Urine pH 5.0 (5.0-8.5) Ur Specific Gaffney 1.015 (1.002-1.035) Urine Protein 100 H (Neg-Trace) mg/dL Urine Glucose (UA) Negative (Negative) mg/dL Urine Ketones Negative (Negative) mg/dL Urine Occult Blood Negative (Negative) Urine Nitrate Negative (Negative) Urine Bilirubin Negative (Negative) Urine Urobilinogen 2.0 H (Less than 2) mg/dL Ur Leukocyte Esterase Negative (Negative) Urine RBC Less than 1 (0-3) /hpf Urine WBC 2 (0-5) /hpf Ur Squamous Epith Cells <1 (0-5) /hpf Urine Bacteria Occasional H (None) /hpf Hyaline Casts 3 (0-3) /lpf Urine Mucus Few H (Occasional) /lpf Micro UA Comment Culture not ind Ur Microscopic Review Not Reportable Urine Culture Comments Culture not ind 10/04/18 10/04/18 Range/Units 16:30 19:27 WBC (4.0-11.0) th/mm3 RBC (4.50-5.90) mil/mm3 Hgb (13.0-17.0) gm/dL Hct (39.0-51.0) % MCV (80.0-100.0) fL MCH (27.0-34.0) pg MCHC (32.0-36.0) % RDW (11.6-17.2) % Plt Count (150-450) th/mm3 MPV (7.0-11.0) fL Neut % (Auto) (16.0-70.0) % Lymph % (Auto) (9.0-44.0) % Bleckley % (Auto) (0.0-8.0) % Eos % (Auto) (0.0-4.0) % Baso % (Auto) (0.0-2.0) % Neut # (Auto) (1.8-7.7) th/mm3 Lymph # (Auto) (1.0-4.8) th/mm3 Bleckley # (Auto) (0.0-0.9) th/mm3 Eos # (Auto) (0.0-0.4) th/mm3 Baso # (Auto) (0.0-0.2) th/mm3 WBC Differential Differential Comment Sodium 143 (136-145) meq/L Potassium 7.1 H* (3.5-5.1) meq/L Chloride 121 H (98-107) meq/L Carbon Dioxide 17.9 L (21.0-32.0) meq/L Anion Gap 4 L (5-15) meq/L BUN 44 H (7-18) mg/dL Creatinine 2.01 H (0.60-1.30) mg/dL Estimated GFR 40 L (>89) mL/min POC Glucose 61 L (68-110) mg/dl Random Glucose 87 (74-106) mg/dL Lactic Acid (0.4-2.0) mmol/L Calcium 8.0 L (8.5-10.1) mg/dL Magnesium 2.3 (1.5-2.5) mg/dL Total Bilirubin 0.4 (0.2-1.0) mg/dL AST 19 (15-37) U/L ALT 11 L (12-78) U/L Alkaline Phosphatase 96 (45-117) U/L Total Protein 7.3 (6.4-8.2) g/dL Albumin 3.1 L (3.4-5.0) g/dL Lipase 104 (73-393) U/L Urine Color (Yellw/Straw) Urine Clarity (Clear) Urine pH (5.0-8.5) Ur Specific Gaffney (1.002-1.035) Urine Protein (Neg-Trace) mg/dL Urine Glucose (UA) (Negative) mg/dL Urine Ketones (Negative) mg/dL Urine Occult Blood (Negative) Urine Nitrate (Negative) Urine Bilirubin (Negative) Urine Urobilinogen (Less than 2) mg/dL Ur Leukocyte Esterase (Negative) Urine RBC (0-3) /hpf Urine WBC (0-5) /hpf Ur Squamous Epith Cells (0-5) /hpf Urine Bacteria (None) /hpf Hyaline Casts (0-3) /lpf Urine Mucus (Occasional) /lpf Micro UA Comment Ur Microscopic Review Urine Culture Comments Imaging Data Radiologist's impression: Abdomen/Pelvis CT 10/04/18 15:12 CONCLUSION: 1. Mild interstitial prominence and airspace disease in the left lung base. 2. Mildly enlarged adrenal glands which may be hyperplastic. 3. No evidence of inflammatory bowel disease, biliary obstructive disease, hydronephrosis, suspicious mass or lymphadenopathy. Discharge Plan Physicians Team ED Provider: Maikel Case Primary Care Provider: UNKNOWN, Rxs /Orders / Referrals /Forms Prescriptions: No Action furosemide [Lasix] 40 mg Tablet 40 mg PO DAILY RF: 0 metoprolol tartrate 100 mg Tablet 100 mg PO QAM RF: 0 lisinopril 20 mg Tablet 20 mg PO DAILY RF: 0 amlodipine 5 mg Tablet 5 mg PO DAILY RF: 0 omeprazole 40 mg Capsule,Delayed Release(Dr/Ec) 40 mg PO DAILY RF: 0 spironolactone 25 mg Tablet 25 mg PO DAILY RF: 0 hydralazine 100 mg Tablet 100 mg PO TID RF: 0 metformin 1,000 mg Tablet 1,000 mg PO DAILY RF: 0 albuterol sulfate [Ventolin HFA] 90 mcg/actuation Hfa Aerosol Inhaler 2 puff INHALATION DAILY RF: 0 budesonide-formoterol [Symbicort] 160-4.5 mcg/actuation Hfa Aerosol Inhaler 1 puff INHALATION BID RF: 0 insulin glargine [Lantus Solostar U-100 Insulin] 100 unit/mL (3 mL) Insulin Pen 55 unit SUBCUT HS RF: 0 Discharge Interventions Interventions: Vital Signs Last Done: 10/04/18 17:59 Status ED Status: Pending Admission
[2018-10-04 15:46] LABS: Baso # (Auto) 0.1 th/mm3 (0.0-0.2); Baso % (Auto) 0.9 % (0.0-2.0); Eos # (Auto) 0.2 th/mm3 (0.0-0.4); Eos % (Auto) 3.1 % (0.0-4.0); Hematocrit 32.6 % (39.0-51.0); Hemoglobin 10.1 gm/dL (13.0-17.0); Lymph # (Auto) 1.6 th/mm3 (1.0-4.8); Mean Corpuscular HGB Conc 31.1 % (32.0-36.0); Mean Corpuscular Volume 106.1 fL (80.0-100.0); Mean Platelet Volume 11.1 fL (7.0-11.0); Mono # (Auto) 0.8 th/mm3 (0.0-0.9); Mono % (Auto) 11.8 % (0.0-8.0); Neut # (Auto) 4.1 th/mm3 (1.8-7.7); Neut % (Auto) 60.2 % (16.0-70.0); Platelet Count 116 th/mm3 (150-450); Red Blood Count 3.07 mil/mm3 (4.50-5.90); Red Cell Distribution Width 17.7 % (11.6-17.2); White Blood Count 6.8 th/mm3 (4.0-11.0)
[2018-10-04 16:37] LABS: Bacteria,Urine Occasional /hpf; Bilirubin,Urine Negative (Negative); Clarity,Urine Hazy (Clear); Color,Urine Yellow (Yellw/Straw); Glucose,Urine (UA) Negative (Negative); Hyaline Casts,Urine 3 /lpf (0-3); Leukocyte Esterase,Urine Negative (Negative); Mucus,Urine Few /lpf (Occasional); Nitrite,Urine Negative (Negative); Specific Gravity,Urine 1.015 (1.002-1.035); Squamous Epithelial Cell,Urine <1 /hpf (0-5)
[2018-10-04 17:06] LABS: Alanine Aminotransferase 11 U/L (12-78); Albumin 3.1 g/dL (3.4-5.0); Anion Gap 4 meq/L (5-15); Aspartate Aminotransferase 19 U/L (15-37); Blood Urea Nitrogen 44 mg/dL (7-18); Carbon Dioxide 17.9 meq/L (21.0-32.0); Chloride 121 meq/L (98-107); Glomerular Filtration Rate 40 mL/min (>89); Glucose,Random 87 mg/dL (74-106); Lipase 104 U/L (73-393); Magnesium 2.3 mg/dL (1.5-2.5); Sodium 143 meq/L (136-145)
[2018-10-04 17:08] LABS: Alkaline Phosphatase 96 U/L (45-117); Total Protein 7.3 g/dL (6.4-8.2)
[2018-10-04 17:10] LABS: Potassium 7.1 meq/L (3.5-5.1)
[2018-10-04] MEDS ORDERED: Dextrose 50% in Water 50 ML Vial IV.PUSH ONE (17:32)
--- NOTE | 2018-10-04 17:48 | CT ---
EXAM DATE: 10/04/2018 5:40 PM EST AGE/SEX: 68 years / Male INDICATIONS: Left lower abdominal pain, and diarrhea for three days. CLINICAL DATA: This is the patient's initial encounter. Patient reports that signs and symptoms have been present for 3 days and indicates a pain score of 6/10. MEDICAL/SURGICAL HISTORY: Congestive heart failure. Chronic obstructive pulmonary disease. Hy pertension. Diabetes. None. RADIATION DOSE: 34.93 CTDI (mGy) ; Patient body habitus COMPARISON: No prior exams available for comparison. TECHNIQUE: Multiple contiguous axial images were obtained through the abdomen. Images were obtained using multiple row detector helical technique. Using automated exposure control and adjustment of the mA and/or kV according to patient size, radiation dose was kept as low as reasonably achievable to o btain optimal diagnostic quality images. DICOM format image data is available electronically for rev iew and comparison. FINDINGS: Lower Lungs: Interstitial prominence and mild airspace disease is seen in the left lung base. Liver: The liver has a homogeneous density without space-occupying lesion. There is no dilation of th e biliary tree. Spleen: Homogeneous density without enlargement. Pancreas: Unremarkable without mass or calcification. Kidneys: Normal in size and shape. No evidence of mass or hydronephrosis. Adrenal Glands: The adrenal glands are mildly enlarged. Aorta: The aorta and proximal iliac vessels are grossly unremarkable without aneurysmal dilation. Bowel/Mesentery: The bowel loops are grossly unremarkable. The cecum and sigmoid colon have a normal configuration. Abdominal Wall: Intact. Retroperitoneum: No evidence of adenopathy in the retrocrural, para-aortic, or deep pelvic regions. Bladder: Contours are smooth. Reproductive Organs: Fiducial markers are identified within the prostate gland. No abnormal masses or calcifications seen. Inguinal: The inguinal region is unremarkable without evidence of adenopathy. Bony Structures: Unremarkable. CONCLUSION: 1. Mild interstitial prominence and airspace disease in the left lung base. 2. Mildly enlarged adrenal glands which may be hyperplastic. 3. No evidence of inflammatory bowel disease, biliary obstructive disease, hydronephrosis, suspiciou s mass or lymphadenopathy. Electronically signed by: Raf Mosqueda MD 10/04/2018 5:46 PM EST
[2018-10-04] MEDS ORDERED: Bisacodyl 10 MG Supp RECTAL PRN (19:53)
[2018-10-04] MEDS: Dextrose 50% in Water 50 ML Vial IV.PUSH PRN (20:25)
[2018-10-04] MEDS: Sodium Bicarbonate 8.4% Inj 150 MEQ in Water for Inj, Sterile 850 ML IV.CONT SCH (20:54)
[2018-10-04] MEDS: Budesonide-Formoterol 160/4.5 MCG 6 GM Inhaler INH SCH (20:54)
[2018-10-04] MEDS ORDERED: Etomidate Inj 40 MG/20 ML Vial IV.PUSH ONE ×2 (20:59→21:11)
[2018-10-04] MEDS ORDERED: Insulin NovoLOG Aspart Correctional Sugar Inj SQ SCH (21:00)
[2018-10-04] MEDS ORDERED: Succinylcholine Inj 200 MG/10 ML Vial ONE (21:00)
[2018-10-04] MEDS: Propofol 1000 mg/100 ml Inj 1,000 MG/100 ML BOTTLE IV.CONT PRN (21:37)
--- NOTE | 2018-10-04 21:39 | XR ---
EXAM DATE: 10/04/2018 9:35 PM EST AGE/SEX: 68 years / Male INDICATIONS: Post intubation CLINICAL DATA: This is the patient's initial encounter. Patient reports that signs and symptoms have been present for 1 day and indicates a pain score of Nonresponsive. MEDICAL/SURGICAL HISTORY: . Congestive heart failure. Chronic obstructive pulmonary disease. Hy pertension. Diabetes. None. COMPARISON: [facility], CHEST SINGLE AP, 03/15/2018. . FINDINGS: ETT is 2 cm above the jeremias. There is an NGT coursing beyond the GE junction. Cardiac silhouette is enlarged with diffuse interstitial prominence and perihilar opacities. Remainder of the exam is uncha nged. CONCLUSION: 1. ETT in good position. 2. Cardiomegaly with pulmonary vascular congestion pattern. Electronically signed by: Marcelo Vásquez MD 10/04/2018 9:38 PM EST
[2018-10-04] MEDS ORDERED: Vancomycin Consult Pharmacy OTHER PRN (22:32)
[2018-10-04] MEDS ORDERED: Sodium Bicarbonate 8.4% Inj 50 MEQ/50 ML Syringe IV.PUSH STA (22:35)
[2018-10-04] MEDS ORDERED: Acetaminophen 325 MG Tablet PO PRN (22:36)
[2018-10-04] MEDS ORDERED: Sodium Polystyrene Sulfonate/Sorbitol Liq 15 GM/60 ML UDC PO ONE (22:39)
--- NOTE | 2018-10-04 22:40 | P.HPCC ---
History of Present Illness Service: Critical Care Medicine Primary Care Physician: UNKNOWN History of Present Illness: This is a 68-year-old morbidly obese -Romanian male who presented to the emergency department for abdominal pain and diarrhea. CT abdomen pelvis at that time demonstrates probable colitis. Always in the emergency department he became more more somnolent as well as hypoxic. He was tried on BiPAP, but his PCO2 continued to rise. He was emergently intubated. In addition all this he has severe acute kidney injury with associated severe hyperkalemia with a potassium greater than 7 not responsive to initial medical management. On my evaluation he is intubated and sedated no new additional information is available from him. Chest x-ray demonstrates acute pulmonary edema. The patient responded to 200 mg of IV Lasix with improving potassium and so emergent dialysis was not required. Patient however does remain severely acidotic despite IV bicarbonate and a bicarbonate infusion was started. Review of systems is unobtainable. Inpatient Certification: I certify that the inpatient services were ordered in accordance with Medicare regulations governing the order. This includes certification that hospital inpatient services are reasonable and necessary and in the case of services not specified as inpatient-only under 42 CFR 419.22(n), that they are appropriately provided as inpatient services in accordance to with the 2-midnight benchmark under 43 CFR 412.3(e) Estimated Total Length of Stay (Days): 2 Plans for Post Hospital Care: Home Review of Systems unobtainable due to endotracheal tube, unobtainable due to mental status PMFSH - History History Provided By: Medical Record - Medical / Surgical Hx Neg / Unobtainable Medical Problems Denied: Unable to Obtain Surgical History: Unable to Obtain - Medical History Medical History: Medical History (Last Reviewed 10/05/18 @ 03:48 by Costa Ryan MD) CHF (congestive heart failure) COPD (chronic obstructive pulmonary disease) Diabetes mellitus HTN (hypertension) Lymphedema Pressure ulcer Sleep apnea - Surgical History Surgical History: Surgical History (Last Reviewed 10/05/18 @ 03:48 by Costa Ryan MD) History of carpal tunnel surgery of right wrist - Social History I have reviewed the patient's Social History: Yes - Tobacco History Tobacco Use In Past 30 Days: Yes Smoking Status: Current every day smoker Tobacco Type: Cigarettes - Alcohol History How Often Do You Have a Drink Containing Alcohol: Never - Substance Use History Substance History: No History of Abuse - Travel History Recent Travel in the [place] Within the Last 8 Weeks: No Recent Travel Out of the Country Within the Last 8 Weeks: No - Immunization History Tetanus Immunization: >5 Years Medications and Allergies Active Medications: Active Medications Acetaminophen (Tylenol) 650 mg PO Q6H PRN PRN Reason: TEMPERATURE > 101 F Al Hydroxide/Mg Hydroxide (Milk Of Angelique Ruht) 30 ml PO Q12H PRN PRN Reason: Mild Constipation Albuterol (Duoneb Neb (Prn)) 1 ampul NEB Q2HR NEB PRN PRN Reason: WHEEZING Amlodipine Besylate (Norvasc) 5 mg PO DAILY TABITHA Bisacodyl (Dulcolax Supp) 10 mg RECTAL DAILY PRN PRN Reason: SEVERE CONSITIPATION Budesonide/Formoterol Fumarate (Symbicort 160/4.5 Mcg Inh) 1 puff INH BID [facility] Last Admin: 10/04/18 20:54 Dose: 1 puff Chlorhexidine Gluconate (Chlorhexidine 2% Cloth) 3 pack TOPICAL DAILY@0400 TABITHA Stop: 10/10/18 03:59 Chlorhexidine Gluconate (Chlorhexidine 2% Cloth) 3 pack TOPICAL DAILY@0400 PRN PRN Reason: Extra cloth needed Stop: 10/10/18 03:59 Dextrose (D50w Vial) 50 ml IV.PUSH UNSCH PRN PRN Reason: PER HYPOGLYCEMIA PROTOCOL Last Admin: 10/04/18 20:25 Dose: 50 ml Famotidine (Pepcid Pf Inj) 10 mg IV.PUSH Q12HR TABITHA Furosemide (Lasix Inj) 200 mg IV.PUSH STAT STA Stop: 10/04/18 22:36 Glucagon (Glucagon Inj) 1 mg OTHER PRN PRN PRN Reason: for Hypoglycemia Protocol Heparin Sodium (Porcine) (Heparin Inj) 5,000 units SQ Q8HR TABITHA Hydralazine HCl (Apresoline) 100 mg PO TID TABITHA Sodium Bicarbonate 150 meq/ (Sterile Water) 1,000 mls @ 150 mls/hr IV.CONT .Q6H40M [facility] Last Admin: 10/04/18 20:54 Dose: 150 mls/hr Propofol (Diprivan 1000 Mg/100 Ml Inj) 1,000 mg in 100 mls @ 5.171 mls/hr IV.CONT TITRATE PRN; Protocol PRN Reason: Per Protocol Last Admin: 10/04/18 21:37 Dose: 5 mcg/kg/min, 5.17 mls/hr Cefepime HCl 1,000 mg/ Sodium (Chloride) 100 mls @ 200 mls/hr IV.SIG Q24H TABITHA Metronidazole/Sodium Chloride (Flagyl 500 Mg Inj) 100 mls @ 100 mls/hr IV.SIG Q8H TABITHA Insulin Human Regular (Novolin R Correctional Sugar Inj) 0 units SQ Q6HR TABITHA; Protocol Lactulose (Lactulose Liq) 30 ml PO DAILY PRN PRN Reason: SEVERE CONSITIPATION Metoprolol Tartrate (Lopressor) 50 mg PO BID TABITHA Pantoprazole Sodium (Protonix) 40 mg PO DAILY TABITHA Sennosides (Senokot) 17.2 mg PO Q12H PRN PRN Reason: Moderate Constipation Sodium Chloride (Ns Flush) 2 ml IV.FLUSH PRN PRN PRN Reason: FLUSH AFTER USING IV ACCESS Sodium Chloride (Ns Flush) 2 ml IV.FLUSH PRN PRN PRN Reason: FLUSH AFTER USING IV ACCESS Sodium Polystyrene Sulfonate (Kayexalate Liq) 30 gm PO ONCE ONE Stop: 10/04/18 22:40 Allergies Allergy/AdvReac Type Severity Reaction Status Date / Time No Known Allergies Allergy Verified 10/04/18 14:59 Home Medications Medication Instructions Recorded Confirmed Type albuterol sulfate [Ventolin HFA] 2 puff INHALATION DAILY 10/04/18 10/04/18 History amlodipine 5 mg PO DAILY 10/04/18 10/04/18 History budesonide-formoterol [Symbicort] 1 puff INHALATION BID 10/04/18 10/04/18 History furosemide [Lasix] 40 mg PO DAILY 10/04/18 10/04/18 History hydralazine 100 mg PO TID 10/04/18 10/04/18 History insulin glargine [Lantus Solostar 55 unit SUBCUT HS 10/04/18 10/04/18 History U-100 Insulin] lisinopril 20 mg PO DAILY 10/04/18 10/04/18 History metformin 1,000 mg PO DAILY 10/04/18 10/04/18 History metoprolol tartrate 100 mg PO QAM 10/04/18 10/04/18 History omeprazole 40 mg PO DAILY 10/04/18 10/04/18 History spironolactone 25 mg PO DAILY 10/04/18 10/04/18 History Results - Labs CBC & Chem 7: 10/04/18 22:30 10/05/18 03:00 Labs: Short CBC 10/04/18 Range/Units 15:28 WBC 6.8 (4.0-11.0) th/mm3 Hgb 10.1 L (13.0-17.0) gm/dL Hct 32.6 L (39.0-51.0) % Plt Count 116 L (150-450) th/mm3 BMP 10/04/18 16:30 Sodium 143 Potassium 7.1 H* Chloride 121 H Carbon Dioxide 17.9 L BUN 44 H Creatinine 2.01 H Calcium 8.0 L Liver Function 10/04/18 Range/Units 16:30 Total Bilirubin 0.4 (0.2-1.0) mg/dL AST 19 (15-37) U/L ALT 11 L (12-78) U/L Alkaline Phosphatase 96 (45-117) U/L Albumin 3.1 L (3.4-5.0) g/dL Urine 10/04/18 Range/Units 16:00 Urine Color Yellow (Yellw/Straw) Urine Clarity Hazy H (Clear) Urine pH 5.0 (5.0-8.5) Ur Specific [place] 1.015 (1.002-1.035) Urine Protein 100 H (Neg-Trace) mg/dL Urine Glucose (UA) Negative (Negative) mg/dL - Imaging Impressions Abdomen/Pelvis CT 10/04/18 15:12 CONCLUSION: 1. Mild interstitial prominence and airspace disease in the left lung base. 2. Mildly enlarged adrenal glands which may be hyperplastic. 3. No evidence of inflammatory bowel disease, biliary obstructive disease, hydronephrosis, suspicious mass or lymphadenopathy. Chest X-Ray 10/04/18 21:22 CONCLUSION: 1. ETT in good position. 2. Cardiomegaly with pulmonary vascular congestion pattern. Exam Vital signs: Vital Signs 10/04/18 14:56 10/04/18 16:53 10/04/18 17:11 Pulse Rate 75 Respiratory Rate 16 12 Blood Pressure 167/72 H 134/61 Pulse Oximetry 96 96 94 L 10/04/18 17:59 10/04/18 20:27 Pulse Rate 86 78 Respiratory Rate 12 14 Blood Pressure 147/81 H 137/74 Pulse Oximetry 99 93 L Intake & Output 10/04/18 10/04/18 10/05/18 06:59 18:59 06:59 Output Total 400 / 400 Balance -400 / -400 Weight 172.365 kg Output: Urine 400 / 400 Narrative: GENERAL: Morbidly obese middle-aged male, lying in bed, intubated, sedated, critically ill HEENT: Normocephalic. Atraumatic. Pupils equal, round, reactive, conjugate. Mucous membranes are moist NECK: Trachea is midline. JVD is unable to be assessed due to large neck circumference CHEST: PRVC, FiO2 50%, equal chest rise. CARDIOVASCULAR: Bradycardic rate, regular rhythm. Hypotensive with systolics in the 180s. ABDOMEN: Soft, morbidly obese, nontender, nondistended. No guarding. MUSCULOSKELETAL: Pulses 2+. 2+ peripheral edema. Bilateral lower extremities have venous stasis changes as well as open ulcerations which are dressed. These are erythematous and indurated. NEUROLOGICAL: RASS -3. Withdraws x4. Does not follow commands. Septic Shock Reassessment Septic shock perfusion: reassessment completed Caprini VTE Risk Assessment Caprini VTE Risk Assessment: Moderate/High Risk (score >= 2) Caprini Risk Assessment Model: Point Value = 1 Point Value = 2 Point Value = 3 Point Value = 5 Age 41-60 Minor surgery BMI > 25 kg/m2 Swollen legs Varicose veins or History of unexplained or recurrent spontaneous Oral contraceptives or hormone replacement Sepsis (< 1 month) Serious lung disease, including pneumonia (< 1 month) Abnormal pulmonary function Acute myocardial infarction Congestive heart failure (< 1 month) History of inflammatory bowel disease Medical patient at bed rest Age 61-74 Arthroscopic surgery Major open surgery (> 45 min) Laparoscopic surgery (> 45 min) Malignancy Confined to bed (> 72 hours) Immobilizing plaster cast Central venous access Age >= 75 History of VTE Family history of VTE Factor V Leiden Prothrombin [id number] Lupus anticoagulant Anticardiolipin antibodies Elevated serum homocysteine Heparin-induced thrombocytopenia Other congenital or acquired thrombophilia Stroke (< 1 month) Elective arthroplasty Hip, pelvis, or leg fracture Acute spinal cord injury (< 1 month) Prophylaxis Regimen: Total Risk Factor Score Risk Level Prophylaxis Regimen 0-1 Low Early ambulation 2 Moderate Order ONE of the following: *Sequential Compression Device (SCD) *Heparin 5000 units SQ BID 3-4 Higher Order ONE of the following medications: *Heparin 5000 units SQ TID *Enoxaparin/Lovenox 40 mg SQ daily (WT < 150 kg, CrCl > 30 mL/min) *Enoxaparin/Lovenox 30 mg SQ daily (WT < 150 kg, CrCl > 10-29 mL/min) *Enoxaparin/Lovenox 30 mg SQ BID (WT < 150 kg, CrCl > 30 mL/min) AND/OR *Sequential Compression Device (SCD) 5 or more Highest Order ONE of the following medications: *Heparin 5000 units SQ TID (Preferred with Epidurals) *Enoxaparin/Lovenox 40 mg SQ daily (WT < 150 kg, CrCl > 30 mL/min) *Enoxaparin/Lovenox 30 mg SQ daily (WT < 150 kg, CrCl > 10-29 mL/min) *Enoxaparin/Lovenox 30 mg SQ BID (WT < 150 kg, CrCl > 30 mL/min) AND *Sequential Compression Device (SCD) Assessment and Plan - Assessment and Plan Plan: Assessment: 68yM with acute multiorgan dysfunction. Differential includes severe sepsis, most likely secondary to colitis versus bilateral LE cellulitis. Acute kidney injury is causing severe hyperkalemia which is now being controlled medically. He also has a significant acute volume overload component which is responding also to iv diuretics. Severe acidosis pronounced and may be combination of acute renal failure as well as severe sepsis. He is very critically ill in multiorgan failure. Plan by systems: Neurologic: Acute metabolic encephalopathy Propofol and fentanyl for goal RASS -2 Frequent neurochecks Avoid long-acting sedatives Respiratory: Acute hypoxic and hypercarbic respiratory failure Acute severe pulmonary edema Diuresis Vent bundle Head of bed elevated Nebs Wean FiO2 for goal SPO2 greater than 90% Start SBTs once acidosis is better Cardiovascular: Severe sepsis Acute congestive heart failure exacerbation, unknown type Forced diuresis Place arterial line for more accurate blood pressure monitoring Renal: Severe acute kidney injury Place Foster with urometer Q1 hour urine output checks Forced diuresis No indication for emergent renal replacement at this time: Potassium is improving -- Strict I/Os FEN/GI: Severe acute intravascular volume overload Morbid obesity Severe life-threatening hyperkalemia Severe anion gap metabolic acidosis Acute colitis N.p.o. Place orogastric tube to low intermittent wall suction Status post 2 rounds of medical management for hyperkalemia: Calcium, D50, insulin, bicarbonate Forced diuresis with loop diuretics Serial potassium monitoring Serial ABGs Bicarbonate infusion Heme/ID: Acute colitis Bilateral lower extremity cellulitis Severe sepsis Vancomycin Cefepime Flagyl P.o. Vanco empirically until C. difficile toxin returns Send C. difficile toxin Blood cultures Sputum culture Urine culture Endocrine: -- SSI Prophylaxis: GI Prophylaxis PPI DVT Prophylaxis -- SCDs Subcu heparin Lines: 10/04 radial arterial line Dispo: Admit ICU. Critically ill. This patient remains critically ill with one or more organ systems which are or may become a threat to life. I have spent in excess of 67 minutes discontinuously in the care and management of this patient. This time is exclusive of procedures, and includes, but is not limited to, evaluation of the patient, review of the medical record, discussions with family, consultants, nursing staff, or respiratory therapy, and documentation in the medical record.
[2018-10-04 22:50] LABS: ABG Base Excess -11.9 mmol/L (-2-2); ABG PCO2 71 mmHg (38-42); ABG PO2 90 mmHg (61-120)
[2018-10-04 22:52] LABS: ABG Base Excess -11.7 mmol/L (-2-2); ABG PCO2 59 mmHg (38-42); ABG PO2 328 mmHg (61-120)
--- NOTE | 2018-10-04 23:04 | P.PCN ---
Date of procedure: 10/04/18 Procedure: Procedure: Arterial Line Placement Right radial arterial line Diagnosis: Acute hypoxic and hypercarbic respiratory failure Indications: Need for serial arterial blood gas sampling Consent: Emergent Description of the Procedure: The right wrist was prepped and draped sterilely. 1% lidocaine was used for local anesthesia. The pulse was located and a needle was advanced into the artery. A 20 gauge, 12 cm catheter was advanced into the artery using a modified Seldinger technique. The catheter was sutured to the skin and a sterile dressing was applied. The catheter was connected to a pressure transducer and an arterial waveform was noted. There were no immediate complications noted. There was minimal EBL. I personally performed the procedure.
[2018-10-04 23:26] LABS: Baso # (Auto) 0.1 th/mm3 (0.0-0.2); Baso % (Auto) 1.1 % (0.0-2.0); Eos # (Auto) 0.1 th/mm3 (0.0-0.4); Eos % (Auto) 2.2 % (0.0-4.0); Hemoglobin 9.8 gm/dL (13.0-17.0); Lymph # (Auto) 1.2 th/mm3 (1.0-4.8); Lymph % (Auto) 22.4 % (9.0-44.0); Mean Corpuscular Hemoglobin 31.9 pg (27.0-34.0); Mean Corpuscular Volume 103.9 fL (80.0-100.0); Mean Platelet Volume 10.8 fL (7.0-11.0); Mono # (Auto) 0.6 th/mm3 (0.0-0.9); Mono % (Auto) 11.5 % (0.0-8.0); Neut # (Auto) 3.4 th/mm3 (1.8-7.7); Neut % (Auto) 62.8 % (16.0-70.0); Platelet Count 108 th/mm3 (150-450); Red Blood Count 3.08 mil/mm3 (4.50-5.90); Red Cell Distribution Width 16.5 % (11.6-17.2); White Blood Count 5.4 th/mm3 (4.0-11.0)
[2018-10-04 23:30] LABS: Mean Corpuscular HGB Conc 30.7 % (32.0-36.0)
[2018-10-04] MEDS ORDERED: Vancomycin Inj 2,500 MG in Sodium Chlor 0.9% Inj 500 ML IV.SIG ONE (23:39)
[2018-10-04 23:54] LABS: Alanine Aminotransferase 11 U/L (12-78); Albumin 2.7 g/dL (3.4-5.0); Alkaline Phosphatase 83 U/L (45-117); Anion Gap 5 meq/L (5-15); Aspartate Aminotransferase 17 U/L (15-37); Blood Urea Nitrogen 44 mg/dL (7-18); Calcium 7.5 mg/dL (8.5-10.1); Carbon Dioxide 19.3 meq/L (21.0-32.0); Chloride 122 meq/L (98-107); Creatine Kinase 241 U/L (39-308); Glomerular Filtration Rate 40 mL/min (>89); Glucose,Random 92 mg/dL (74-106); Magnesium 2.3 mg/dL (1.5-2.5); Phosphorus 3.1 mg/dL (2.5-4.9); Sodium 146 meq/L (136-145); Total Protein 6.4 g/dL (6.4-8.2); Troponin I 0.05 ng/mL (0.02-0.05)
[2018-10-04 23:58] LABS: Potassium 6.8 meq/L (3.5-5.1)
[2018-10-05 00:22] LABS: Creatine Kinase MB 4.6 ng/mL (0.5-3.6)
[2018-10-05] MEDS ORDERED: Dextrose 50% in Water 50 ML Vial IV.PUSH ONE (00:50)
[2018-10-05] MEDS ORDERED: Calcium Chloride Inj 1 GM in Sodium Chlor 0.9% Inj 100 ML IV.SIG ONE (01:00)
[2018-10-05 01:27] LABS: ABG Base Excess -8.9 mmol/L (-2-2); ABG PCO2 35 mmHg (38-42); ABG PO2 67 mmHg (61-120)
[2018-10-05] MEDS: Insulin NovoLIN Regular Correctional Sugar Inj SQ SCH ×5 (02:05→23:02)
[2018-10-05 03:41] LABS: Calcium 8.3 mg/dL (8.5-10.1); Carbon Dioxide 20.6 meq/L (21.0-32.0); Potassium 5.9 meq/L (3.5-5.1)
[2018-10-05] MEDS ORDERED: Sodium Phosphate Inj 30 MMOL in Sodium Chlor 0.9% Inj 250 ML IV.SIG PRN (03:45)
[2018-10-05] MEDS ORDERED: Potassium Chlor 40 mEq Premix 40 MEQ/100 ML PIGGYBACK IV.SIG PRN ×2 (03:45)
[2018-10-05] MEDS ORDERED: Potassium Chloride 25 MEQ Effervescent Tablet PO PRN (03:45)
[2018-10-05] MEDS ORDERED: Potassium Chlor 20 mEq Premix 20 MEQ/100 ML PIGGYBACK IV.SIG PRN ×2 (03:45)
[2018-10-05] MEDS ORDERED: Magnesium Sulfate Inj 2 GM in Sodium Chlor 0.9% Inj 96 ML IV.SIG PRN (03:45)
[2018-10-05] MEDS ORDERED: Magnesium Oxide 400 MG Tablet PO PRN (03:45)
[2018-10-05] MEDS ORDERED: Potassium Phosphate 500 MG Soluble Tablet PO PRN ×2 (03:45)
[2018-10-05] MEDS ORDERED: Potassium Phosphate Inj 30 MMOL in Sodium Chlor 0.9% Inj 250 ML IV.SIG PRN (03:45)
[2018-10-05] MEDS ORDERED: Magnesium Sulfate Inj 4 GM in Sodium Chlor 0.9% Inj 92 ML IV.SIG PRN (03:45)
[2018-10-05] MEDS: Sodium Bicarbonate 8.4% Inj 150 MEQ in Water for Inj, Sterile 850 ML IV.CONT SCH ×2 (03:58→10:05)
[2018-10-05] MEDS: Chlorhexidine Gluconate 2% 1 Pack (2 Cloths) TOPICAL SCH (04:00)
[2018-10-05] MEDS ORDERED: Chlorhexidine Gluconate 2% 1 Pack (2 Cloths) TOPICAL PRN (04:00)
[2018-10-05] MEDS: Propofol 1000 mg/100 ml Inj 1,000 MG/100 ML BOTTLE IV.CONT PRN ×8 (04:51→22:58)
--- NOTE | 2018-10-05 05:22 | ECG ---
Date Performed: 10/04/2018 Time Performed: 17:47:54 PTAGE: 68 years EKG: Baseline artifact present Sinus rhythm POSSIBLE ANTERIOR MYOCARDIAL INFARCTION INFERIOR MYOCARDIAL INFARCTION ABNORMAL ECG Probably No sig nificant change from prior electrocardiogram. PREVIOUS TRACING : 02/25/2018 15.07 DOCTOR: Emil Salas Interpretating Date/Time 10/05/2018 05:21:37
--- NOTE | 2018-10-05 05:28 | XR ---
EXAM DATE: 10/05/2018 4:46 AM EST AGE/SEX: 68 years / Male INDICATIONS: Shortness of breath. CLINICAL DATA: This is the patient's subsequent encounter. Patient reports that signs and symptoms h ave been present for 2 days and indicates a pain score of Nonresponsive. MEDICAL/SURGICAL HISTORY: Congestive heart failure. Chronic obstructive pulmonary disease. Di abetes. Hypertension. Smoker. None. COMPARISON: [facility] [place], CHEST 1V SINGLE AP, 10/04/2018. . FINDINGS: Endotracheal tube tip is present several centimeters above the jeremias. There has been slight decrease in lung volumes considerable increase in parenchymal opacity, particularly in the left lung. Cardiac contours are grossly unchanged. CONCLUSION: Worsening aeration Electronically signed by: Armond Ybarra MD 10/05/2018 5:26 AM EST
[2018-10-05 05:41] LABS: Baso % (Auto) 0.7 % (0.0-2.0); Eos # (Auto) 0.2 th/mm3 (0.0-0.4); Eos % (Auto) 3.8 % (0.0-4.0); Hematocrit 31.1 % (39.0-51.0); Hemoglobin 9.9 gm/dL (13.0-17.0); Lymph # (Auto) 1.8 th/mm3 (1.0-4.8); Lymph % (Auto) 31.3 % (9.0-44.0); Mean Corpuscular Hemoglobin 32.4 pg (27.0-34.0); Mean Corpuscular Volume 101.3 fL (80.0-100.0); Mean Platelet Volume 11.1 fL (7.0-11.0); Mono # (Auto) 0.7 th/mm3 (0.0-0.9); Mono % (Auto) 11.7 % (0.0-8.0); Neut % (Auto) 52.5 % (16.0-70.0); Platelet Count 102 th/mm3 (150-450); Red Blood Count 3.07 mil/mm3 (4.50-5.90); Red Cell Distribution Width 16.2 % (11.6-17.2); White Blood Count 5.7 th/mm3 (4.0-11.0)
[2018-10-05 05:42] LABS: ABG Base Excess -5.2 mmol/L (-2-2); ABG PCO2 34 mmHg (38-42); ABG PO2 76 mmHg (61-120)
[2018-10-05 06:01] LABS: Alanine Aminotransferase 9 U/L (12-78); Albumin 2.6 g/dL (3.4-5.0); Alkaline Phosphatase 79 U/L (45-117); Anion Gap 5 meq/L (5-15); Aspartate Aminotransferase 18 U/L (15-37); Calcium 8.1 mg/dL (8.5-10.1); Carbon Dioxide 21.7 meq/L (21.0-32.0); Chloride 120 meq/L (98-107); Glomerular Filtration Rate 45 mL/min (>89); Glucose,Random 73 mg/dL (74-106); Phosphorus 1.9 mg/dL (2.5-4.9); Potassium 5.8 meq/L (3.5-5.1); Sodium 147 meq/L (136-145); Total Protein 6.1 g/dL (6.4-8.2); Vancomycin,Random 35.1 Comment
[2018-10-05] MEDS: Heparin - SQ 10,000 UNITS/ML Vial SQ SCH ×3 (06:01→22:13)
[2018-10-05 06:06] LABS: Erythrocyte Sedimentation Rate 36 mm/hr (0-20)
[2018-10-05 06:22] LABS: Blood Urea Nitrogen 43 mg/dL (7-18)
[2018-10-05] MEDS: fentaNYL 10 mcg/mL Premix Drip 2,500 MCG/250 ML BAG IV.SIG PRN ×2 (06:29→16:38)
[2018-10-05] MEDS: Famotidine PF Inj 20 MG/2 ML Vial IV.PUSH SCH ×2 (09:39→20:48)
[2018-10-05] MEDS: Metoprolol Tartrate 50 MG Tablet PO SCH ×2 (09:40→22:56)
[2018-10-05] MEDS: amLODIPine 5 MG Tablet PO SCH (09:40)
[2018-10-05] MEDS: Budesonide-Formoterol 160/4.5 MCG 6 GM Inhaler INH SCH ×2 (10:11→19:55)
[2018-10-05] MEDS ORDERED: niCARdipine Inj 25 MG in Sodium Chlor 0.9% Inj 240 ML IV.CONT PRN (10:40)
[2018-10-05] MEDS ORDERED: hydrALAZINE HCl Inj 20 MG/ML Vial ONE (10:59)
[2018-10-05] MEDS: Sodium Polystyrene Sulfonate/Sorbitol Liq 15 GM/60 ML UDC NG/OG SCH ×3 (12:25→16:38)
[2018-10-05] MEDS: Dextrose 50% in Water 50 ML Vial IV.PUSH PRN (12:25)
--- NOTE | 2018-10-05 14:24 | P.PNCC ---
Subjective Subjective Remarks/Hospital Course: 10/04: This is a 68-year-old morbidly obese -German male who presented to the emergency department for abdominal pain and diarrhea. CT abdomen pelvis at that time demonstrates probable colitis. Always in the emergency department he became more more somnolent as well as hypoxic. He was tried on BiPAP, but his PCO2 continued to rise. He was emergently intubated. In addition all this he has severe acute kidney injury with associated severe hyperkalemia with a potassium greater than 7 not responsive to initial medical management. On my evaluation he is intubated and sedated no new additional information is available from him. Chest x-ray demonstrates acute pulmonary edema. The patient responded to 200 mg of IV Lasix with improving potassium and so emergent dialysis was not required. Patient however does remain severely acidotic despite IV bicarbonate and a bicarbonate infusion was started. Review of systems is unobtainable. 10/05: Orally intubated on mechanical ventilation, sedated, arousable. Potassium 5.9 this morning. Additional Kayexalate ordered. Hypothermic requiring Mariaelena hugger. Check TSH which is within normal limits. Elevated blood pressure for which hydralazine as needed was ordered which helped with his bradycardia bring his heart rate up from 40s to 50s. Objective Vital Signs / I&O: Vital Signs 10/04/18 14:56 10/04/18 16:53 10/04/18 17:11 Temperature Pulse Rate 75 Respiratory Rate 16 12 Blood Pressure 167/72 H 134/61 Pulse Oximetry 96 96 94 L 10/04/18 17:59 10/04/18 20:27 10/04/18 21:15 Temperature Pulse Rate 86 78 Respiratory Rate 12 14 18 Blood Pressure 147/81 H 137/74 Pulse Oximetry 99 93 L 100 10/04/18 22:22 10/04/18 22:32 10/04/18 22:37 Temperature Pulse Rate 60 Respiratory Rate 7 L Blood Pressure 176/147 H Pulse Oximetry 100 98 100 10/04/18 22:39 10/04/18 23:00 10/04/18 23:15 Temperature Pulse Rate 65 57 L 50 L Respiratory Rate 15 27 H 22 Blood Pressure 192/113 H 134/97 H 150/72 H Pulse Oximetry 100 99 98 10/04/18 23:30 10/04/18 23:45 10/04/18 23:49 Temperature Pulse Rate 49 L 49 L Respiratory Rate 22 23 22 Blood Pressure 161/82 H 163/78 H Pulse Oximetry 98 98 98 10/05/18 00:00 10/05/18 00:15 10/05/18 01:00 Temperature 98.6 F Pulse Rate 49 L 48 L 48 L Respiratory Rate 22 18 20 Blood Pressure 172/77 H 184/76 H 135/79 Pulse Oximetry 98 97 99 10/05/18 02:00 10/05/18 03:00 10/05/18 03:52 Temperature Pulse Rate 47 L 46 L 47 L Respiratory Rate 19 15 22 Blood Pressure 172/75 H 178/78 H Pulse Oximetry 100 99 100 10/05/18 04:00 10/05/18 05:00 10/05/18 06:00 Temperature 98.9 F Pulse Rate 48 L 46 L 49 L Respiratory Rate 14 12 15 Blood Pressure 172/80 H 178/77 H Pulse Oximetry 99 99 100 10/05/18 06:57 10/05/18 07:00 10/05/18 07:31 Temperature Pulse Rate 50 L Respiratory Rate 23 10 L 22 Blood Pressure Pulse Oximetry 100 100 10/05/18 08:00 10/05/18 09:00 10/05/18 09:50 Temperature 92.5 F L 93.2 F L Pulse Rate 45 L 43 L 50 L Respiratory Rate 22 22 22 Blood Pressure Pulse Oximetry 100 100 10/05/18 10:00 10/05/18 11:00 10/05/18 11:05 Temperature 93.6 F L 94.8 F L Pulse Rate 47 L 59 L Respiratory Rate 22 28 H 23 Blood Pressure Pulse Oximetry 100 86 L 100 Intake & Output 10/04/18 10/05/18 10/05/18 18:59 06:59 18:59 Intake Total 1934 1300 / 1300 Output Total 4935 / 4935 1750 / 1750 Balance -3000 / -3000 -450 / -450 Weight 172.365 kg 171.9 kg Intake: IV 1934 1300 / 1300 Diprivan 1000 mg/100 ml Inj 1, 100 / 100 200 / 200 000 mg In 100 ml @ 5 MCG/KG/MIN 5.171 mls/hr IV.CONT TITRATE PRN Rx#:[id number] Sodium Bicarbonate 8.4% Inj 150 1000 / 1000 1000 / 1000 MEQ In Sterile Water for Inj 850 ML @ 75 mls/hr IV.CONT . [id number] [facility] Rx#:[id number] Calcium Chloride Inj 1 GM In NS 110 / 110 Inj 100 ML @ 110 mls/hr IV.SIG ONCE ONE Rx#:[id number] Maxipime Inj 1,000 MG In NS Inj 100 / 100 100 ML @ 200 mls/hr IV.SIG Q24H [facility] Rx#:[id number] Vancomycin Inj 2,500 MG In NS 525 / 525 Inj 500 ML @ 250 mls/hr IV.SIG ONCE ONE Rx#:[id number] Flagyl 500 MG Inj 100 ML @ 100 100 / 100 100 / 100 mls/hr IV.SIG Q8H [facility] Rx#: [id number] Oral 0 / 0 Output: Urine 600 / 600 Urine Amount (Catheter) 4335 / 4335 1750 / 1750 Indwelling Urethral Catheter 4335 / 4335 1750 / 1750 Other: Weight On Admission 173 kg Result Diagrams: 10/05/18 05:15 10/05/18 05:15 Other Results: Laboratory Results - last 24 hr 10/04/18 10/04/18 10/04/18 15:20 15:28 16:00 WBC 6.8 RBC 3.07 L Hgb 10.1 L Hct 32.6 L MCV 106.1 H MCH 33.0 MCHC 31.1 L RDW 17.7 H Plt Count 116 L MPV 11.1 H Neut % (Auto) 60.2 Lymph % (Auto) 24.0 Mchenry % (Auto) 11.8 H Eos % (Auto) 3.1 Baso % (Auto) 0.9 Neut # (Auto) 4.1 Lymph # (Auto) 1.6 Mchenry # (Auto) 0.8 Eos # (Auto) 0.2 Baso # (Auto) 0.1 WBC Differential . Differential Comment Auto diff final ESR Puncture Site Patient Temperature O2 Saturation ABG pH ABG pCO2 ABG pO2 ABG HCO3 ABG O2 Content ABG Base Excess ABG Methemoglobin Jourdan Test Hemoglobin Carboxyhemoglobin O2 Delivery Device Liter Flow Vent Setting Inspired O2 Critical Value Sodium Potassium Chloride Carbon Dioxide Anion Gap BUN Creatinine Estimated GFR POC Glucose Random Glucose Lactic Acid 0.6 Calcium Phosphorus Magnesium Total Bilirubin AST ALT Alkaline Phosphatase Total Creatine Kinase CK-MB (CK-2) Troponin I C-Reactive Protein B-Natriuretic Peptide Total Protein Albumin Lipase Procalcitonin TSH Urine Color Yellow Urine Clarity Hazy H Urine pH 5.0 Ur Specific [place] 1.015 Urine Protein 100 H Urine Glucose (UA) Negative Urine Ketones Negative Urine Occult Blood Negative Urine Nitrate Negative Urine Bilirubin Negative Urine Urobilinogen 2.0 H Ur Leukocyte Esterase Negative Urine RBC Less than 1 Urine WBC 2 Ur Squamous Epith Cells <1 Urine Bacteria Occasional H Hyaline Casts 3 Urine Mucus Few H Micro UA Comment Culture not ind Ur Microscopic Review Not Reportable Urine Culture Comments Culture not ind Nasal Screen MRSA (PCR) Random Vancomycin 10/04/18 10/04/18 10/04/18 16:30 19:27 20:36 WBC RBC Hgb Hct MCV MCH MCHC RDW Plt Count MPV Neut % (Auto) Lymph % (Auto) Mchenry % (Auto) Eos % (Auto) Baso % (Auto) Neut # (Auto) Lymph # (Auto) Mchenry # (Auto) Eos # (Auto) Baso # (Auto) WBC Differential Differential Comment ESR Puncture Site Right radial Patient Temperature 98.6 O2 Saturation 90 ABG pH 7.02 L* ABG pCO2 71 H* ABG pO2 90 ABG HCO3 17 L ABG O2 Content 13.3 ABG Base Excess -11.9 L ABG Methemoglobin 0.8 Jourdan Test Present Hemoglobin 10.5 L Carboxyhemoglobin 3.6 O2 Delivery Device Nasal cannula Liter Flow 5.00 Vent Setting Inspired O2 Critical Value Yes Sodium 143 Potassium 7.1 H* Chloride 121 H Carbon Dioxide 17.9 L Anion Gap 4 L BUN 44 H Creatinine 2.01 H Estimated GFR 40 L POC Glucose 61 L Random Glucose 87 Lactic Acid Calcium 8.0 L Phosphorus Magnesium 2.3 Total Bilirubin 0.4 AST 19 ALT 11 L Alkaline Phosphatase 96 Total Creatine Kinase CK-MB (CK-2) Troponin I C-Reactive Protein B-Natriuretic Peptide Total Protein 7.3 Albumin 3.1 L Lipase 104 Procalcitonin TSH Urine Color Urine Clarity Urine pH Ur Specific [place] Urine Protein Urine Glucose (UA) Urine Ketones Urine Occult Blood Urine Nitrate Urine Bilirubin Urine Urobilinogen Ur Leukocyte Esterase Urine RBC Urine WBC Ur Squamous Epith Cells Urine Bacteria Hyaline Casts Urine Mucus Micro UA Comment Ur Microscopic Review Urine Culture Comments Nasal Screen MRSA (PCR) Random Vancomycin 10/04/18 10/04/18 10/04/18 21:41 22:30 22:30 WBC 5.4 RBC 3.08 L Hgb 9.8 L Hct 32.0 L MCV 103.9 H MCH 31.9 MCHC 30.7 L RDW 16.5 Plt Count 108 L MPV 10.8 Neut % (Auto) 62.8 Lymph % (Auto) 22.4 Mchenry % (Auto) 11.5 H Eos % (Auto) 2.2 Baso % (Auto) 1.1 Neut # (Auto) 3.4 Lymph # (Auto) 1.2 Mchenry # (Auto) 0.6 Eos # (Auto) 0.1 Baso # (Auto) 0.1 WBC Differential . Differential Comment Auto diff final ESR Puncture Site Right radial Patient Temperature 98.6 O2 Saturation 95 ABG pH 7.08 L* ABG pCO2 59 H* ABG pO2 328 H ABG HCO3 17 L ABG O2 Content 14.3 ABG Base Excess -11.7 L ABG Methemoglobin 0.8 Jourdan Test Present Hemoglobin 10.0 L Carboxyhemoglobin 3.2 O2 Delivery Device Vent Liter Flow Vent Setting Prvc/ac Inspired O2 100 Critical Value Yes Sodium 146 H Potassium 6.8 H* Chloride 122 H Carbon Dioxide 19.3 L Anion Gap 5 BUN 44 H Creatinine 2.02 H Estimated GFR 40 L POC Glucose Random Glucose 92 Lactic Acid Calcium 7.5 L Phosphorus 3.1 Magnesium 2.3 Total Bilirubin 0.4 AST 17 ALT 11 L Alkaline Phosphatase 83 Total Creatine Kinase 241 CK-MB (CK-2) 4.6 H Troponin I 0.05 C-Reactive Protein 1.10 H B-Natriuretic Peptide Total Protein 6.4 D Albumin 2.7 L Lipase Procalcitonin TSH Urine Color Urine Clarity Urine pH Ur Specific [place] Urine Protein Urine Glucose (UA) Urine Ketones Urine Occult Blood Urine Nitrate Urine Bilirubin Urine Urobilinogen Ur Leukocyte Esterase Urine RBC Urine WBC Ur Squamous Epith Cells Urine Bacteria Hyaline Casts Urine Mucus Micro UA Comment Ur Microscopic Review Urine Culture Comments Nasal Screen MRSA (PCR) Random Vancomycin 10/04/18 10/04/18 10/04/18 22:30 22:30 22:30 WBC RBC Hgb Hct MCV MCH MCHC RDW Plt Count MPV Neut % (Auto) Lymph % (Auto) Mchenry % (Auto) Eos % (Auto) Baso % (Auto) Neut # (Auto) Lymph # (Auto) Mchenry # (Auto) Eos # (Auto) Baso # (Auto) WBC Differential Differential Comment ESR Puncture Site Patient Temperature O2 Saturation ABG pH ABG pCO2 ABG pO2 ABG HCO3 ABG O2 Content ABG Base Excess ABG Methemoglobin Jourdan Test Hemoglobin Carboxyhemoglobin O2 Delivery Device Liter Flow Vent Setting Inspired O2 Critical Value Sodium Potassium Chloride Carbon Dioxide Anion Gap BUN Creatinine Estimated GFR POC Glucose Random Glucose Lactic Acid 0.6 Calcium Phosphorus Magnesium Total Bilirubin AST ALT Alkaline Phosphatase Total Creatine Kinase CK-MB (CK-2) Troponin I C-Reactive Protein B-Natriuretic Peptide Total Protein Albumin Lipase Procalcitonin 0.14 H TSH Urine Color Urine Clarity Urine pH Ur Specific [place] Urine Protein Urine Glucose (UA) Urine Ketones Urine Occult Blood Urine Nitrate Urine Bilirubin Urine Urobilinogen Ur Leukocyte Esterase Urine RBC Urine WBC Ur Squamous Epith Cells Urine Bacteria Hyaline Casts Urine Mucus Micro UA Comment Ur Microscopic Review Urine Culture Comments Nasal Screen MRSA (PCR) Not detected Random Vancomycin 10/05/18 10/05/18 10/05/18 01:12 03:00 03:00 WBC RBC Hgb Hct MCV MCH MCHC RDW Plt Count MPV Neut % (Auto) Lymph % (Auto) Mchenry % (Auto) Eos % (Auto) Baso % (Auto) Neut # (Auto) Lymph # (Auto) Mchenry # (Auto) Eos # (Auto) Baso # (Auto) WBC Differential Differential Comment ESR Puncture Site Art line Patient Temperature 98.6 O2 Saturation 91 ABG pH 7.30 L ABG pCO2 35 L ABG pO2 67 ABG HCO3 16 L* ABG O2 Content 11.7 L ABG Base Excess -8.9 L ABG Methemoglobin 1.4 Jourdan Test Hemoglobin 9.1 L Carboxyhemoglobin 2.5 O2 Delivery Device Ventilator Liter Flow Vent Setting Prvc/ac Inspired O2 40 Critical Value Yes Sodium 147 H Potassium 5.9 H D Chloride 121 H Carbon Dioxide 20.6 L Anion Gap 5 BUN 43 H Creatinine 1.89 H Estimated GFR 43 L POC Glucose Random Glucose 101 Lactic Acid Calcium 8.3 L D Phosphorus Magnesium Total Bilirubin AST ALT Alkaline Phosphatase Total Creatine Kinase CK-MB (CK-2) Troponin I C-Reactive Protein B-Natriuretic Peptide Total Protein Albumin Lipase Procalcitonin TSH 1.110 Urine Color Urine Clarity Urine pH Ur Specific [place] Urine Protein Urine Glucose (UA) Urine Ketones Urine Occult Blood Urine Nitrate Urine Bilirubin Urine Urobilinogen Ur Leukocyte Esterase Urine RBC Urine WBC Ur Squamous Epith Cells Urine Bacteria Hyaline Casts Urine Mucus Micro UA Comment Ur Microscopic Review Urine Culture Comments Nasal Screen MRSA (PCR) Random Vancomycin 10/05/18 10/05/18 10/05/18 05:10 05:15 05:15 WBC 5.7 RBC 3.07 L Hgb 9.9 L Hct 31.1 L MCV 101.3 H MCH 32.4 MCHC 32.0 RDW 16.2 Plt Count 102 L MPV 11.1 H Neut % (Auto) 52.5 Lymph % (Auto) 31.3 Mchenry % (Auto) 11.7 H Eos % (Auto) 3.8 Baso % (Auto) 0.7 Neut # (Auto) 3.0 Lymph # (Auto) 1.8 Mchenry # (Auto) 0.7 Eos # (Auto) 0.2 Baso # (Auto) 0.0 WBC Differential . Differential Comment Auto diff final ESR 36 H Puncture Site Art line Patient Temperature 98.6 O2 Saturation 93 ABG pH 7.37 L ABG pCO2 34 L ABG pO2 76 ABG HCO3 19 L ABG O2 Content 20.0 ABG Base Excess -5.2 L ABG Methemoglobin 1.3 Jourdan Test Hemoglobin 15.2 Carboxyhemoglobin 2.2 O2 Delivery Device Ventilator Liter Flow Vent Setting 22/550/[id number]/5peep Inspired O2 40 Critical Value No Sodium 147 H Potassium 5.8 H Chloride 120 H Carbon Dioxide 21.7 Anion Gap 5 BUN 43 H Creatinine 1.82 H Estimated GFR 45 L POC Glucose Random Glucose 73 L Lactic Acid Calcium 8.1 L Phosphorus 1.9 L D Magnesium 2.0 Total Bilirubin 0.4 AST 18 ALT 9 L Alkaline Phosphatase 79 Total Creatine Kinase CK-MB (CK-2) Troponin I C-Reactive Protein B-Natriuretic Peptide Total Protein 6.1 L Albumin 2.6 L Lipase Procalcitonin TSH Urine Color Urine Clarity Urine pH Ur Specific [place] Urine Protein Urine Glucose (UA) Urine Ketones Urine Occult Blood Urine Nitrate Urine Bilirubin Urine Urobilinogen Ur Leukocyte Esterase Urine RBC Urine WBC Ur Squamous Epith Cells Urine Bacteria Hyaline Casts Urine Mucus Micro UA Comment Ur Microscopic Review Urine Culture Comments Nasal Screen MRSA (PCR) Random Vancomycin 35.1 10/05/18 10/05/18 10/05/18 05:15 06:05 12:19 WBC RBC Hgb Hct MCV MCH MCHC RDW Plt Count MPV Neut % (Auto) Lymph % (Auto) Mchenry % (Auto) Eos % (Auto) Baso % (Auto) Neut # (Auto) Lymph # (Auto) Mchenry # (Auto) Eos # (Auto) Baso # (Auto) WBC Differential Differential Comment ESR Puncture Site Patient Temperature O2 Saturation ABG pH ABG pCO2 ABG pO2 ABG HCO3 ABG O2 Content ABG Base Excess ABG Methemoglobin Jourdan Test Hemoglobin Carboxyhemoglobin O2 Delivery Device Liter Flow Vent Setting Inspired O2 Critical Value Sodium Potassium Chloride Carbon Dioxide Anion Gap BUN Creatinine Estimated GFR POC Glucose 73 67 L Random Glucose Lactic Acid Calcium Phosphorus Magnesium Total Bilirubin AST ALT Alkaline Phosphatase Total Creatine Kinase CK-MB (CK-2) Troponin I C-Reactive Protein B-Natriuretic Peptide 658 H Total Protein Albumin Lipase Procalcitonin TSH Urine Color Urine Clarity Urine pH Ur Specific [place] Urine Protein Urine Glucose (UA) Urine Ketones Urine Occult Blood Urine Nitrate Urine Bilirubin Urine Urobilinogen Ur Leukocyte Esterase Urine RBC Urine WBC Ur Squamous Epith Cells Urine Bacteria Hyaline Casts Urine Mucus Micro UA Comment Ur Microscopic Review Urine Culture Comments Nasal Screen MRSA (PCR) Random Vancomycin 10/05/18 10/05/18 12:20 12:48 WBC RBC Hgb Hct MCV MCH MCHC RDW Plt Count MPV Neut % (Auto) Lymph % (Auto) Mchenry % (Auto) Eos % (Auto) Baso % (Auto) Neut # (Auto) Lymph # (Auto) Mchenry # (Auto) Eos # (Auto) Baso # (Auto) WBC Differential Differential Comment ESR Puncture Site Patient Temperature O2 Saturation ABG pH ABG pCO2 ABG pO2 ABG HCO3 ABG O2 Content ABG Base Excess ABG Methemoglobin Jourdan Test Hemoglobin Carboxyhemoglobin O2 Delivery Device Liter Flow Vent Setting Inspired O2 Critical Value Sodium Potassium Chloride Carbon Dioxide Anion Gap BUN Creatinine Estimated GFR POC Glucose 61 L 90 Random Glucose Lactic Acid Calcium Phosphorus Magnesium Total Bilirubin AST ALT Alkaline Phosphatase Total Creatine Kinase CK-MB (CK-2) Troponin I C-Reactive Protein B-Natriuretic Peptide Total Protein Albumin Lipase Procalcitonin TSH Urine Color Urine Clarity Urine pH Ur Specific [place] Urine Protein Urine Glucose (UA) Urine Ketones Urine Occult Blood Urine Nitrate Urine Bilirubin Urine Urobilinogen Ur Leukocyte Esterase Urine RBC Urine WBC Ur Squamous Epith Cells Urine Bacteria Hyaline Casts Urine Mucus Micro UA Comment Ur Microscopic Review Urine Culture Comments Nasal Screen MRSA (PCR) Random Vancomycin Imaging: Impressions Abdomen/Pelvis CT 10/04/18 15:12 CONCLUSION: 1. Mild interstitial prominence and airspace disease in the left lung base. 2. Mildly enlarged adrenal glands which may be hyperplastic. 3. No evidence of inflammatory bowel disease, biliary obstructive disease, hydronephrosis, suspicious mass or lymphadenopathy. Chest X-Ray 10/04/18 21:22 CONCLUSION: 1. ETT in good position. 2. Cardiomegaly with pulmonary vascular congestion pattern. Chest X-Ray 10/05/18 05:00 CONCLUSION: Worsening aeration Objective Remarks: GENERAL: Morbidly obese middle-aged male, lying in bed, intubated, sedated, critically ill HEENT: Normocephalic. Atraumatic. Pupils equal, round, reactive, conjugate. Mucous membranes are moist NECK: Trachea is midline. JVD is unable to be assessed due to large neck circumference CHEST: PRVC, FiO2 50%, equal chest rise. CARDIOVASCULAR: Bradycardic rate, regular rhythm. Hypotensive with systolics in the 180s. ABDOMEN: Soft, morbidly obese, nontender, nondistended. No guarding. MUSCULOSKELETAL: Pulses 2+. 2+ peripheral edema. Bilateral lower extremities have venous stasis changes as well as open ulcerations which are dressed. These are erythematous and indurated. NEUROLOGICAL: Sedated/ encephalopathic, orally intubated. Withdraws x4. Does not follow commands. Assessment and Plan - Assessment and Plan Plan: Assessment: 68yM with acute multiorgan dysfunction. Differential includes severe sepsis, most likely secondary to colitis versus bilateral LE cellulitis. Acute kidney injury is causing severe hyperkalemia which is now being controlled medically. He also has a significant acute volume overload component which is responding also to iv diuretics. Severe acidosis pronounced and may be combination of acute renal failure as well as severe sepsis. He is very critically ill in multiorgan failure. Plan by systems: Neurologic: Acute metabolic encephalopathy Propofol and fentanyl for goal RASS -2 Frequent neurochecks Avoid long-acting sedatives Respiratory: Acute hypoxic and hypercarbic respiratory failure Acute severe pulmonary edema Diuresis Vent bundle Head of bed elevated Nebs Wean FiO2 for goal SPO2 greater than 90% Start SBTs once acidosis is better Cardiovascular: Severe sepsis Acute congestive heart failure exacerbation, unknown type Forced diuresis Place arterial line for more accurate blood pressure monitoring Renal: Severe acute kidney injury Hyperkalemia Place Foster with urometer Q1 hour urine output checks Forced diuresis Continue Kayexalate via OG tube. On bicarb drip. Strict intake output, monitor and replete electrolytes, follow BN creatinine. FEN/GI: Severe acute intravascular volume overload Morbid obesity Severe life-threatening hyperkalemia Severe anion gap metabolic acidosis Diarrhea orogastric tube in place. Start tube feeds with Nepro. Status post 2 rounds of medical management for hyperkalemia: Calcium, D50, insulin, bicarbonate. Continue Kayexalate. Forced diuresis with loop diuretics Serial potassium monitoring Serial ABGs Bicarbonate infusion Heme/ID: Diarrhea: ? gastroenteritis Bilateral lower extremity cellulitis Severe sepsis Vancomycin Cefepime Flagyl P.o. Vanco empirically until C. difficile toxin returns Send C. difficile toxin Stoolw for enteric pathogens/ WBCs pending. Consult ID Blood cultures Sputum culture Urine culture Endocrine: -- SSI TSH WNL Prophylaxis: GI Prophylaxis PPI DVT Prophylaxis -- SCDs Subcu heparin Lines: 10/04 radial arterial line This patient remains critically ill with one or more organ systems which are or may become a threat to life. I have spent in excess of 35 minutes discontinuously in the care and management of this patient. This time is exclusive of procedures, and includes, but is not limited to, evaluation of the patient, review of the medical record, discussions with family, consultants, nursing staff, or respiratory therapy, and documentation in the medical record.
--- NOTE | 2018-10-05 15:15 | P.CONID ---
History of Present Illness Service: Infectious disease Consult date: 10/05/18 Requesting Physician: Rubin Kc Reason for Consult: Evaluate patient with sepsis Primary Care Provider: UNKNOWN History of Present Illness: Patient seen and examined. Records reviewed. Patient is a 68-year-old morbidly obese male, presented to the hospital complaining of several day history of abdominal pain and diarrhea. There was no mention of any fever chills or sweats. CT of the abdomen and pelvis did not show any evidence of abnormality in the colon or bowel. His blood pressure is okay, but the patient was hypoxic and worsened respiratory ferrera and ended up getting intubated. He also has evidence of acute kidney injury and hyperkalemia. Patient has since developed significant hypothermia and currently on a warming blanket. He is sedated and intubated. His creatinine is a little bit better, but he remains acidotic and he is on a bicarb drip. Chest x-ray showing bilateral pulmonary infiltrates. Infectious disease consultation has been requested to assist with evaluation and treatment of his sepsis. Review of Systems unobtainable due to endotracheal tube PMFSH - History History Provided By: Medical Record - Medical / Surgical Hx Neg / Unobtainable Medical Problems Denied: Unable to Obtain - Medical History Medical History: Medical History (Last Reviewed 10/05/18 @ 15:07 by Lakeisha Lawson MD) CHF (congestive heart failure) COPD (chronic obstructive pulmonary disease) Diabetes mellitus HTN (hypertension) Lymphedema Pressure ulcer Sleep apnea - Surgical History Surgical History: Surgical History (Last Reviewed 10/05/18 @ 15:07 by Lakeisha Lawson MD) History of carpal tunnel surgery of right wrist - Tobacco History Tobacco Use In Past 30 Days: Yes Smoking Status: Current every day smoker Tobacco Type: Cigarettes - Alcohol History How Often Do You Have a Drink Containing Alcohol: Never - Substance Use History Substance History: No History of Abuse - Travel History Recent Travel in the [place] Within the Last 8 Weeks: No Recent Travel Out of the Country Within the Last 8 Weeks: No - Immunization History Tetanus Immunization: >5 Years Medications and Allergies Active Medications: Active Medications Acetaminophen (Tylenol) 650 mg PO Q6H PRN PRN Reason: TEMPERATURE > 101 F Al Hydroxide/Mg Hydroxide (Milk Of Magnesia Liq) 30 ml PO Q12H PRN PRN Reason: Mild Constipation Albuterol (Duoneb Neb (Prn)) 1 ampul NEB Q2HR NEB PRN PRN Reason: WHEEZING Albuterol (Duoneb Neb (Marleny)) 1 ampul NEB Q6HR NEB [facility] Last Admin: 10/05/18 09:48 Dose: 1 ampul Amlodipine Besylate (Norvasc) 5 mg PO DAILY [facility] Last Admin: 10/05/18 09:40 Dose: 5 mg Bisacodyl (Dulcolax Supp) 10 mg RECTAL DAILY PRN PRN Reason: SEVERE CONSITIPATION Budesonide/Formoterol Fumarate (Symbicort 160/4.5 Mcg Inh) 1 puff INH BID [facility] Last Admin: 10/05/18 10:11 Dose: 1 puff Chlorhexidine Gluconate (Chlorhexidine 2% Cloth) 3 pack TOPICAL DAILY@0400 [facility] Stop: 10/10/18 03:59 Last Admin: 10/05/18 04:00 Dose: 3 pack Chlorhexidine Gluconate (Chlorhexidine 2% Cloth) 3 pack TOPICAL DAILY@0400 PRN PRN Reason: Extra cloth needed Stop: 10/10/18 03:59 Dextrose (D50w Vial) 50 ml IV.PUSH UNSCH PRN PRN Reason: PER HYPOGLYCEMIA PROTOCOL Last Admin: 10/05/18 12:25 Dose: 50 ml Famotidine (Pepcid Pf Inj) 10 mg IV.PUSH Q12HR [facility] Last Admin: 10/05/18 09:39 Dose: 10 mg Glucagon (Glucagon Inj) 1 mg OTHER PRN PRN PRN Reason: for Hypoglycemia Protocol Heparin Sodium (Porcine) (Heparin Inj) 5,000 units SQ Q8HR [facility] Last Admin: 10/05/18 13:27 Dose: 5,000 units Hydralazine HCl (Apresoline) 100 mg PO TID [facility] Last Admin: 10/05/18 12:26 Dose: 100 mg Hydralazine HCl (Apresoline Inj) 20 mg IV.PUSH Q4H PRN PRN Reason: SBP>160, DBP>90 Propofol (Diprivan 1000 Mg/100 Ml Inj) 1,000 mg in 100 mls @ 5.171 mls/hr IV.CONT TITRATE PRN; Protocol PRN Reason: Per Protocol Last Admin: 10/05/18 14:24 Dose: 50 mcg/kg/min, 51.71 mls/hr Cefepime HCl 1,000 mg/ Sodium (Chloride) 100 mls @ 200 mls/hr IV.SIG Q24H [facility] Last Infusion: 10/05/18 00:17 Dose: Infused Metronidazole/Sodium Chloride (Flagyl 500 Mg Inj) 100 mls @ 100 mls/hr IV.SIG Q8H [facility] Last Admin: 10/05/18 14:09 Dose: 100 mls/hr Fentanyl (Fentanyl 10 Mcg/Ml Premix Drip) 2,500 mcg in 250 mls @ 5 mls/hr IV.SIG TITRATE PRN; Protocol PRN Reason: Per Protocol Last Titration: 10/05/18 06:58 Dose: 100 mcg/hr, 10 mls/hr Magnesium Sulfate 4 gm/ Sodium (Chloride) 100 mls @ 50 mls/hr IV.SIG UNSCH PRN PRN Reason: For Magnesium 0.9 - 1.1 mg/dL Magnesium Sulfate 2 gm/ Sodium (Chloride) 100 mls @ 50 mls/hr IV.SIG UNSCH PRN PRN Reason: For Magnesium 1.2 - 1.6 mg/dL Potassium Chloride (Kcl 20 Meq Premix Inj) 20 meq in 100 mls @ 50 mls/hr IV.SIG Q2H PRN PRN Reason: For Potassium 3.3 - 3.5 mEq/L Potassium Chloride (Kcl 40 Meq Premix Inj) 40 meq in 100 mls @ 25 mls/hr IV.SIG UNSCH PRN PRN Reason: For Potassium 3.3 - 3.5 mEq/L Potassium Chloride (Kcl 20 Meq Premix Inj) 20 meq in 100 mls @ 50 mls/hr IV.SIG Q2H PRN PRN Reason: For Potassium 2.8 - 3.2 mEq/L Potassium Phosphate 30 mmol/ (Sodium Chloride) 260 mls @ 42 mls/hr IV.SIG UNSCH PRN PRN Reason: SEE LABEL COMMENTS Sodium Phosphate 30 mmol/ (Sodium Chloride) 260 mls @ 42 mls/hr IV.SIG UNSCH PRN PRN Reason: For Phosphorus < 2.5 mg/dL Potassium Chloride (Kcl 40 Meq Premix Inj) 40 meq in 100 mls @ 25 mls/hr IV.SIG Q2H PRN PRN Reason: For Potassium 2.8 - 3.2 mEq/L Vancomycin HCl 1,750 mg/ (Sodium Chloride) 517.5 mls @ 250 mls/hr IV.SIG Q24H [facility] Nicardipine HCl 25 mg/ Sodium (Chloride) 250 mls @ 50 mls/hr IV.CONT TITRATE PRN; Protocol PRN Reason: Per Protocol Sodium Bicarbonate 150 meq/ (Dextrose/Sodium Chloride) 1,000 mls @ 75 mls/hr IV.CONT .[id number] [facility] Insulin Human Regular (Novolin R Correctional Sugar Inj) 0 units SQ Q6HR [facility]; Protocol Last Admin: 10/05/18 12:26 Dose: Not Given Lactulose (Lactulose Liq) 30 ml PO DAILY PRN PRN Reason: SEVERE CONSITIPATION Magnesium Oxide (Mag-Ox) 800 mg PO UNSCH PRN PRN Reason: For Magnesium 1.2 - 1.6 mg/dL Metoprolol Tartrate (Lopressor) 50 mg PO BID [facility] Last Admin: 10/05/18 09:40 Dose: Not Given Miscellaneous Information ([facility] Ordered Lab Info) 0 each OTHER ONCE ONE Stop: 10/08/18 01:46 Pantoprazole Sodium (Protonix) 40 mg PO DAILY [facility] Last Admin: 10/05/18 09:40 Dose: Not Given Pharmacy Profile Note (Vancomycin Consult Pharmacy) 1 each OTHER UNSCH PRN PRN Reason: Pharmacy to dose Potassium Bicarb/Potassium Chloride (K-Lyte Cl Eff) 50 meq PO UNSCH PRN PRN Reason: For Potassium 3.3 - 3.5 mEq/L Potassium Phosphate (K-Phos Original) 2,000 mg PO Q4H PRN PRN Reason: Phosphorus Less Than 2.5 mg/dL Potassium Phosphate (K-Phos Original) 2,000 mg PO UNSCH PRN PRN Reason: SEE LABEL COMMENTS Sennosides (Senokot) 17.2 mg PO Q12H PRN PRN Reason: Moderate Constipation Sodium Chloride (Ns Flush) 2 ml IV.FLUSH PRN PRN PRN Reason: FLUSH AFTER USING IV ACCESS Sodium Chloride (Ns Flush) 2 ml IV.FLUSH PRN PRN PRN Reason: FLUSH AFTER USING IV ACCESS Sodium Polystyrene Sulfonate (Kayexalate Liq) 30 gm NG/OG Q2H [facility] Stop: 10/05/18 16:01 Last Admin: 10/05/18 13:27 Dose: 30 gm Vancomycin HCl (Vancomycin Po) 500 mg PO QID [facility] Last Admin: 10/05/18 12:26 Dose: 500 mg Allergies Allergy/AdvReac Type Severity Reaction Status Date / Time No Known Allergies Allergy Verified 10/04/18 14:59 Home Medications Medication Instructions Recorded Confirmed Type albuterol sulfate [Ventolin HFA] 2 puff INHALATION DAILY 10/04/18 10/04/18 History amlodipine 5 mg PO DAILY 10/04/18 10/04/18 History budesonide-formoterol [Symbicort] 1 puff INHALATION BID 10/04/18 10/04/18 History furosemide [Lasix] 40 mg PO DAILY 10/04/18 10/04/18 History hydralazine 100 mg PO TID 10/04/18 10/04/18 History insulin glargine [Lantus Solostar 55 unit SUBCUT HS 10/04/18 10/04/18 History U-100 Insulin] lisinopril 20 mg PO DAILY 10/04/18 10/04/18 History metformin 1,000 mg PO DAILY 10/04/18 10/04/18 History metoprolol tartrate 100 mg PO QAM 10/04/18 10/04/18 History omeprazole 40 mg PO DAILY 10/04/18 10/04/18 History spironolactone 25 mg PO DAILY 10/04/18 10/04/18 History Exam Vital signs: Vital Signs 10/04/18 16:53 10/04/18 17:11 10/04/18 17:59 Temperature Pulse Rate 75 86 Respiratory Rate 12 12 Blood Pressure 134/61 147/81 H Pulse Oximetry 96 94 L 99 10/04/18 20:27 10/04/18 21:15 10/04/18 22:22 Temperature Pulse Rate 78 Respiratory Rate 14 18 Blood Pressure 137/74 Pulse Oximetry 93 L 100 100 10/04/18 22:32 10/04/18 22:37 10/04/18 22:39 Temperature Pulse Rate 60 65 Respiratory Rate 7 L 15 Blood Pressure 176/147 H 192/113 H Pulse Oximetry 98 100 100 10/04/18 23:00 10/04/18 23:15 10/04/18 23:30 Temperature Pulse Rate 57 L 50 L 49 L Respiratory Rate 27 H 22 22 Blood Pressure 134/97 H 150/72 H 161/82 H Pulse Oximetry 99 98 98 10/04/18 23:45 10/04/18 23:49 10/05/18 00:00 Temperature 98.6 F Pulse Rate 49 L 49 L Respiratory Rate 23 22 22 Blood Pressure 163/78 H 172/77 H Pulse Oximetry 98 98 98 10/05/18 00:15 10/05/18 01:00 10/05/18 02:00 Temperature Pulse Rate 48 L 48 L 47 L Respiratory Rate 18 20 19 Blood Pressure 184/76 H 135/79 172/75 H Pulse Oximetry 97 99 100 10/05/18 03:00 10/05/18 03:52 10/05/18 04:00 Temperature 98.9 F Pulse Rate 46 L 47 L 48 L Respiratory Rate 15 22 14 Blood Pressure 178/78 H 172/80 H Pulse Oximetry 99 100 99 10/05/18 05:00 10/05/18 06:00 10/05/18 06:57 Temperature Pulse Rate 46 L 49 L Respiratory Rate 12 15 23 Blood Pressure 178/77 H Pulse Oximetry 99 100 10/05/18 07:00 10/05/18 07:31 10/05/18 08:00 Temperature 92.5 F L Pulse Rate 50 L 45 L Respiratory Rate 10 L 22 22 Blood Pressure Pulse Oximetry 100 100 100 10/05/18 09:00 10/05/18 09:50 10/05/18 10:00 Temperature 93.2 F L 93.6 F L Pulse Rate 43 L 50 L 47 L Respiratory Rate 22 22 22 Blood Pressure Pulse Oximetry 100 100 10/05/18 11:00 10/05/18 11:05 10/05/18 12:00 Temperature 94.8 F L 95.4 F L Pulse Rate 59 L 55 L Respiratory Rate 28 H 23 6 L Blood Pressure Pulse Oximetry 86 L 100 100 10/05/18 13:00 10/05/18 14:00 Temperature 96.1 F L 97.0 F L Pulse Rate 55 L 53 L Respiratory Rate 22 22 Blood Pressure Pulse Oximetry 100 100 Intake & Output 10/04/18 10/05/18 10/05/18 18:59 06:59 18:59 Intake Total 1934 / 1934 2200 / 2200 Output Total 4935 / 4935 1750 / 1750 Balance -3000 / -3000 450 / 450 Weight 172.365 kg 171.9 kg Intake: IV 1935 / 1935 1400 / 1400 Diprivan 1000 mg/100 ml Inj 1, 100 / 100 300 / 300 000 mg In 100 ml @ 5 MCG/KG/MIN 5.171 mls/hr IV.CONT TITRATE PRN Rx#:[id number] Sodium Bicarbonate 8.4% Inj 150 1000 / 1000 1000 / 1000 MEQ In Sterile Water for Inj 850 ML @ 75 mls/hr IV.CONT . [id number] [facility] Rx#:[id number] Calcium Chloride Inj 1 GM In NS 110 / 110 Inj 100 ML @ 110 mls/hr IV.SIG ONCE ONE Rx#:[id number] Maxipime Inj 1,000 MG In NS Inj 100 / 100 100 ML @ 200 mls/hr IV.SIG Q24H [facility] Rx#:[id number] Vancomycin Inj 2,500 MG In NS 525 / 525 Inj 500 ML @ 250 mls/hr IV.SIG ONCE ONE Rx#:[id number] Flagyl 500 MG Inj 100 ML @ 100 100 / 100 100 / 100 mls/hr IV.SIG Q8H [facility] Rx#: [id number] Oral 0 / 0 0 / 0 Tube Irrigant 800 / 800 Output: Urine 600 / 600 Urine Amount (Catheter) 4335 / 4335 1750 / 1750 Indwelling Urethral Catheter 4335 / 4335 1750 / 1750 Other: Weight On Admission 173 kg Narrative: Physical examination GENERAL: Patient is a morbidly obese, well-developed male, sedated on the vent , not in respiratory distress. SKIN: Warm and dry. He is on warming blanket. No generalized rash HEAD: Atraumatic. Normocephalic. No temporal wasting, or tenderness. EYES: Morley conjunctiva. No petechia or hemorrhage. Pupils equal, round and reactive to light. Extraocular movements full and intact. No scleral icterus. No injection or drainage. Has some edema of the face EARS, NOSE AND THROAT: Nose without bleeding or purulent nasal discharge. He is orally intubated. NECK: Neck is short and obese, supple CARDIOVASCULAR: Regular rate and rhythm. No murmurs, rubs or gallops heard RESPIRATORY: Coarse breath sounds bilaterally, decreased at the bases. ABDOMEN: Soft, obese, mildly distended, no reaction to palpation. Bowel sounds hypoactive. EXTREMITIES: No clubbing, cyanosis. Has chronic skin changes in both LE, tree bark appearance of skin, with ulcers, no purulence noted. NEUROLOGICAL: Sedated PSYCHIATRIC: Unable to assess. LINE: No evidence of infection Results - Labs CBC & Chem 7: 10/06/18 01:56 10/06/18 01:56 Labs: Laboratory Results - last 24 hr 10/04/18 10/04/18 10/04/18 15:20 15:28 16:00 WBC 6.8 RBC 3.07 L Hgb 10.1 L Hct 32.6 L MCV 106.1 H MCH 33.0 MCHC 31.1 L RDW 17.7 H Plt Count 116 L MPV 11.1 H Neut % (Auto) 60.2 Lymph % (Auto) 24.0 [place] % (Auto) 11.8 H Eos % (Auto) 3.1 Baso % (Auto) 0.9 Neut # (Auto) 4.1 Lymph # (Auto) 1.6 [place] # (Auto) 0.8 Eos # (Auto) 0.2 Baso # (Auto) 0.1 WBC Differential . Differential Comment Auto diff final ESR Puncture Site Patient Temperature O2 Saturation ABG pH ABG pCO2 ABG pO2 ABG HCO3 ABG O2 Content ABG Base Excess ABG Methemoglobin Jourdan Test Hemoglobin Carboxyhemoglobin O2 Delivery Device Liter Flow Vent Setting Inspired O2 Critical Value Sodium Potassium Chloride Carbon Dioxide Anion Gap BUN Creatinine Estimated GFR POC Glucose Random Glucose Lactic Acid 0.6 Calcium Phosphorus Magnesium Total Bilirubin AST ALT Alkaline Phosphatase Total Creatine Kinase CK-MB (CK-2) Troponin I C-Reactive Protein B-Natriuretic Peptide Total Protein Albumin Lipase Procalcitonin TSH Urine Color Yellow Urine Clarity Hazy H Urine pH 5.0 Ur Specific [place] 1.015 Urine Protein 100 H Urine Glucose (UA) Negative Urine Ketones Negative Urine Occult Blood Negative Urine Nitrate Negative Urine Bilirubin Negative Urine Urobilinogen 2.0 H Ur Leukocyte Esterase Negative Urine RBC Less than 1 Urine WBC 2 Ur Squamous Epith Cells <1 Urine Bacteria Occasional H Hyaline Casts 3 Urine Mucus Few H Micro UA Comment Culture not ind Ur Microscopic Review Not Reportable Urine Culture Comments Culture not ind Nasal Screen MRSA (PCR) Random Vancomycin 10/04/18 10/04/18 10/04/18 16:30 19:27 20:36 WBC RBC Hgb Hct MCV MCH MCHC RDW Plt Count MPV Neut % (Auto) Lymph % (Auto) [place] % (Auto) Eos % (Auto) Baso % (Auto) Neut # (Auto) Lymph # (Auto) [place] # (Auto) Eos # (Auto) Baso # (Auto) WBC Differential Differential Comment ESR Puncture Site Right radial Patient Temperature 98.6 O2 Saturation 90 ABG pH 7.02 L* ABG pCO2 71 H* ABG pO2 90 ABG HCO3 17 L ABG O2 Content 13.3 ABG Base Excess -11.9 L ABG Methemoglobin 0.8 Jourdan Test Present Hemoglobin 10.5 L Carboxyhemoglobin 3.6 O2 Delivery Device Nasal cannula Liter Flow 5.00 Vent Setting Inspired O2 Critical Value Yes Sodium 143 Potassium 7.1 H* Chloride 121 H Carbon Dioxide 17.9 L Anion Gap 4 L BUN 44 H Creatinine 2.01 H Estimated GFR 40 L POC Glucose 61 L Random Glucose 87 Lactic Acid Calcium 8.0 L Phosphorus Magnesium 2.3 Total Bilirubin 0.4 AST 19 ALT 11 L Alkaline Phosphatase 96 Total Creatine Kinase CK-MB (CK-2) Troponin I C-Reactive Protein B-Natriuretic Peptide Total Protein 7.3 Albumin 3.1 L Lipase 104 Procalcitonin TSH Urine Color Urine Clarity Urine pH Ur Specific [place] Urine Protein Urine Glucose (UA) Urine Ketones Urine Occult Blood Urine Nitrate Urine Bilirubin Urine Urobilinogen Ur Leukocyte Esterase Urine RBC Urine WBC Ur Squamous Epith Cells Urine Bacteria Hyaline Casts Urine Mucus Micro UA Comment Ur Microscopic Review Urine Culture Comments Nasal Screen MRSA (PCR) Random Vancomycin 10/04/18 10/04/18 10/04/18 21:41 22:30 22:30 WBC 5.4 RBC 3.08 L Hgb 9.8 L Hct 32.0 L MCV 103.9 H MCH 31.9 MCHC 30.7 L RDW 16.5 Plt Count 108 L MPV 10.8 Neut % (Auto) 62.8 Lymph % (Auto) 22.4 [place] % (Auto) 11.5 H Eos % (Auto) 2.2 Baso % (Auto) 1.1 Neut # (Auto) 3.4 Lymph # (Auto) 1.2 [place] # (Auto) 0.6 Eos # (Auto) 0.1 Baso # (Auto) 0.1 WBC Differential . Differential Comment Auto diff final ESR Puncture Site Right radial Patient Temperature 98.6 O2 Saturation 95 ABG pH 7.08 L* ABG pCO2 59 H* ABG pO2 328 H ABG HCO3 17 L ABG O2 Content 14.3 ABG Base Excess -11.7 L ABG Methemoglobin 0.8 Jourdan Test Present Hemoglobin 10.0 L Carboxyhemoglobin 3.2 O2 Delivery Device Vent Liter Flow Vent Setting Prvc/ac Inspired O2 100 Critical Value Yes Sodium 146 H Potassium 6.8 H* Chloride 122 H Carbon Dioxide 19.3 L Anion Gap 5 BUN 44 H Creatinine 2.02 H Estimated GFR 40 L POC Glucose Random Glucose 92 Lactic Acid Calcium 7.5 L Phosphorus 3.1 Magnesium 2.3 Total Bilirubin 0.4 AST 17 ALT 11 L Alkaline Phosphatase 83 Total Creatine Kinase 241 CK-MB (CK-2) 4.6 H Troponin I 0.05 C-Reactive Protein 1.10 H B-Natriuretic Peptide Total Protein 6.4 D Albumin 2.7 L Lipase Procalcitonin TSH Urine Color Urine Clarity Urine pH Ur Specific [place] Urine Protein Urine Glucose (UA) Urine Ketones Urine Occult Blood Urine Nitrate Urine Bilirubin Urine Urobilinogen Ur Leukocyte Esterase Urine RBC Urine WBC Ur Squamous Epith Cells Urine Bacteria Hyaline Casts Urine Mucus Micro UA Comment Ur Microscopic Review Urine Culture Comments Nasal Screen MRSA (PCR) Random Vancomycin 10/04/18 10/04/18 10/04/18 22:30 22:30 22:30 WBC RBC Hgb Hct MCV MCH MCHC RDW Plt Count MPV Neut % (Auto) Lymph % (Auto) [place] % (Auto) Eos % (Auto) Baso % (Auto) Neut # (Auto) Lymph # (Auto) [place] # (Auto) Eos # (Auto) Baso # (Auto) WBC Differential Differential Comment ESR Puncture Site Patient Temperature O2 Saturation ABG pH ABG pCO2 ABG pO2 ABG HCO3 ABG O2 Content ABG Base Excess ABG Methemoglobin Jourdan Test Hemoglobin Carboxyhemoglobin O2 Delivery Device Liter Flow Vent Setting Inspired O2 Critical Value Sodium Potassium Chloride Carbon Dioxide Anion Gap BUN Creatinine Estimated GFR POC Glucose Random Glucose Lactic Acid 0.6 Calcium Phosphorus Magnesium Total Bilirubin AST ALT Alkaline Phosphatase Total Creatine Kinase CK-MB (CK-2) Troponin I C-Reactive Protein B-Natriuretic Peptide Total Protein Albumin Lipase Procalcitonin 0.14 H TSH Urine Color Urine Clarity Urine pH Ur Specific [place] Urine Protein Urine Glucose (UA) Urine Ketones Urine Occult Blood Urine Nitrate Urine Bilirubin Urine Urobilinogen Ur Leukocyte Esterase Urine RBC Urine WBC Ur Squamous Epith Cells Urine Bacteria Hyaline Casts Urine Mucus Micro UA Comment Ur Microscopic Review Urine Culture Comments Nasal Screen MRSA (PCR) Not detected Random Vancomycin 10/05/18 10/05/18 10/05/18 01:12 03:00 03:00 WBC RBC Hgb Hct MCV MCH MCHC RDW Plt Count MPV Neut % (Auto) Lymph % (Auto) [place] % (Auto) Eos % (Auto) Baso % (Auto) Neut # (Auto) Lymph # (Auto) [place] # (Auto) Eos # (Auto) Baso # (Auto) WBC Differential Differential Comment ESR Puncture Site Art line Patient Temperature 98.6 O2 Saturation 91 ABG pH 7.30 L ABG pCO2 35 L ABG pO2 67 ABG HCO3 16 L* ABG O2 Content 11.7 L ABG Base Excess -8.9 L ABG Methemoglobin 1.4 Jourdan Test Hemoglobin 9.1 L Carboxyhemoglobin 2.5 O2 Delivery Device Ventilator Liter Flow Vent Setting Prvc/ac Inspired O2 40 Critical Value Yes Sodium 147 H Potassium 5.9 H D Chloride 121 H Carbon Dioxide 20.6 L Anion Gap 5 BUN 43 H Creatinine 1.89 H Estimated GFR 43 L POC Glucose Random Glucose 101 Lactic Acid Calcium 8.3 L D Phosphorus Magnesium Total Bilirubin AST ALT Alkaline Phosphatase Total Creatine Kinase CK-MB (CK-2) Troponin I C-Reactive Protein B-Natriuretic Peptide Total Protein Albumin Lipase Procalcitonin TSH 1.110 Urine Color Urine Clarity Urine pH Ur Specific [place] Urine Protein Urine Glucose (UA) Urine Ketones Urine Occult Blood Urine Nitrate Urine Bilirubin Urine Urobilinogen Ur Leukocyte Esterase Urine RBC Urine WBC Ur Squamous Epith Cells Urine Bacteria Hyaline Casts Urine Mucus Micro UA Comment Ur Microscopic Review Urine Culture Comments Nasal Screen MRSA (PCR) Random Vancomycin 10/05/18 10/05/18 10/05/18 05:10 05:15 05:15 WBC 5.7 RBC 3.07 L Hgb 9.9 L Hct 31.1 L MCV 101.3 H MCH 32.4 MCHC 32.0 RDW 16.2 Plt Count 102 L MPV 11.1 H Neut % (Auto) 52.5 Lymph % (Auto) 31.3 [place] % (Auto) 11.7 H Eos % (Auto) 3.8 Baso % (Auto) 0.7 Neut # (Auto) 3.0 Lymph # (Auto) 1.8 [place] # (Auto) 0.7 Eos # (Auto) 0.2 Baso # (Auto) 0.0 WBC Differential . Differential Comment Auto diff final ESR 36 H Puncture Site Art line Patient Temperature 98.6 O2 Saturation 93 ABG pH 7.37 L ABG pCO2 34 L ABG pO2 76 ABG HCO3 19 L ABG O2 Content 20.0 ABG Base Excess -5.2 L ABG Methemoglobin 1.3 Jourdan Test Hemoglobin 15.2 Carboxyhemoglobin 2.2 O2 Delivery Device Ventilator Liter Flow Vent Setting 22/550/it1.0/5peep Inspired O2 40 Critical Value No Sodium 147 H Potassium 5.8 H Chloride 120 H Carbon Dioxide 21.7 Anion Gap 5 BUN 43 H Creatinine 1.82 H Estimated GFR 45 L POC Glucose Random Glucose 73 L Lactic Acid Calcium 8.1 L Phosphorus 1.9 L D Magnesium 2.0 Total Bilirubin 0.4 AST 18 ALT 9 L Alkaline Phosphatase 79 Total Creatine Kinase CK-MB (CK-2) Troponin I C-Reactive Protein B-Natriuretic Peptide Total Protein 6.1 L Albumin 2.6 L Lipase Procalcitonin TSH Urine Color Urine Clarity Urine pH Ur Specific [place] Urine Protein Urine Glucose (UA) Urine Ketones Urine Occult Blood Urine Nitrate Urine Bilirubin Urine Urobilinogen Ur Leukocyte Esterase Urine RBC Urine WBC Ur Squamous Epith Cells Urine Bacteria Hyaline Casts Urine Mucus Micro UA Comment Ur Microscopic Review Urine Culture Comments Nasal Screen MRSA (PCR) Random Vancomycin 35.1 10/05/18 10/05/18 10/05/18 05:15 06:05 12:19 WBC RBC Hgb Hct MCV MCH MCHC RDW Plt Count MPV Neut % (Auto) Lymph % (Auto) [place] % (Auto) Eos % (Auto) Baso % (Auto) Neut # (Auto) Lymph # (Auto) [place] # (Auto) Eos # (Auto) Baso # (Auto) WBC Differential Differential Comment ESR Puncture Site Patient Temperature O2 Saturation ABG pH ABG pCO2 ABG pO2 ABG HCO3 ABG O2 Content ABG Base Excess ABG Methemoglobin Jourdan Test Hemoglobin Carboxyhemoglobin O2 Delivery Device Liter Flow Vent Setting Inspired O2 Critical Value Sodium Potassium Chloride Carbon Dioxide Anion Gap BUN Creatinine Estimated GFR POC Glucose 73 67 L Random Glucose Lactic Acid Calcium Phosphorus Magnesium Total Bilirubin AST ALT Alkaline Phosphatase Total Creatine Kinase CK-MB (CK-2) Troponin I C-Reactive Protein B-Natriuretic Peptide 658 H Total Protein Albumin Lipase Procalcitonin TSH Urine Color Urine Clarity Urine pH Ur Specific [place] Urine Protein Urine Glucose (UA) Urine Ketones Urine Occult Blood Urine Nitrate Urine Bilirubin Urine Urobilinogen Ur Leukocyte Esterase Urine RBC Urine WBC Ur Squamous Epith Cells Urine Bacteria Hyaline Casts Urine Mucus Micro UA Comment Ur Microscopic Review Urine Culture Comments Nasal Screen MRSA (PCR) Random Vancomycin 10/05/18 10/05/18 12:20 12:48 WBC RBC Hgb Hct MCV MCH MCHC RDW Plt Count MPV Neut % (Auto) Lymph % (Auto) [place] % (Auto) Eos % (Auto) Baso % (Auto) Neut # (Auto) Lymph # (Auto) [place] # (Auto) Eos # (Auto) Baso # (Auto) WBC Differential Differential Comment ESR Puncture Site Patient Temperature O2 Saturation ABG pH ABG pCO2 ABG pO2 ABG HCO3 ABG O2 Content ABG Base Excess ABG Methemoglobin Jourdan Test Hemoglobin Carboxyhemoglobin O2 Delivery Device Liter Flow Vent Setting Inspired O2 Critical Value Sodium Potassium Chloride Carbon Dioxide Anion Gap BUN Creatinine Estimated GFR POC Glucose 61 L 90 Random Glucose Lactic Acid Calcium Phosphorus Magnesium Total Bilirubin AST ALT Alkaline Phosphatase Total Creatine Kinase CK-MB (CK-2) Troponin I C-Reactive Protein B-Natriuretic Peptide Total Protein Albumin Lipase Procalcitonin TSH Urine Color Urine Clarity Urine pH Ur Specific [place] Urine Protein Urine Glucose (UA) Urine Ketones Urine Occult Blood Urine Nitrate Urine Bilirubin Urine Urobilinogen Ur Leukocyte Esterase Urine RBC Urine WBC Ur Squamous Epith Cells Urine Bacteria Hyaline Casts Urine Mucus Micro UA Comment Ur Microscopic Review Urine Culture Comments Nasal Screen MRSA (PCR) Random Vancomycin - Imaging Impressions Abdomen/Pelvis CT 10/04/18 15:12 CONCLUSION: 1. Mild interstitial prominence and airspace disease in the left lung base. 2. Mildly enlarged adrenal glands which may be hyperplastic. 3. No evidence of inflammatory bowel disease, biliary obstructive disease, hydronephrosis, suspicious mass or lymphadenopathy. Chest X-Ray 10/04/18 21:22 CONCLUSION: 1. ETT in good position. 2. Cardiomegaly with pulmonary vascular congestion pattern. Chest X-Ray 10/05/18 05:00 CONCLUSION: Worsening aeration Assessment and Plan - Plan Impression Sepsis on admission - source? - came in with abdominal pain and diarrhea, CT no evidence of colitis, had recent Abx for toe infection, ?C diff, ?other etiology gastroenteritis - bilateral infiltrates, likely CHF; did not have PNA symptoms on presentation - UA ok - has leg ulcers, but look ok, has chronic LE edema Hypothermia Respiratory failure CHRISTAL Morbid obesity Recommendation Follow C/S Check stool C diff Continue current empriric Abx Follow temps Monitor progress I will determine course of Abx once workup results available I will follow along with you Thank you for this consultation
[2018-10-05] MEDS: Sodium Bicarbonate 8.4% Inj 150 MEQ in Dextrose 5%/NaCl 0.9% Inj 850 ML IV.CONT SCH (15:52)
--- NOTE | 2018-10-05 16:38 | P.DIET ---
Nutritional Evaluation Type of nutrition evaluation: initial Nutrition consult regarding: Tube Feeding Screening comments: Pt assessed per SCCM and ASPEN guidelines for critically ill pts with a BMI >50. Objective - Diagnosis Colitis, Hyperkalemia, AMS - Objective Body Mass Index: 54.4 % IBW: 228 (IBW = 166#) Body Weight Used for Calculations: IBW (75.5 kg) Energy Needs - Lower Range (kCal/kg): 22 Energy Needs - Upper Range (kCal/kg): 25 Lower Limit kCal/kg (kCals): 1,660 Upper Limit kCal/kg (kCals): 1,888 Lower Limit Protein Factor (Grams per Kg): 1.5 Upper Limit Protein Factor (Grams per Kg): 2.0 Lower Protein Needs (Protein): 113 Upper Protein Needs (Protein): 151 Dietitian Reviewed in Medical Record: Curent medications, Intake & Output, Labs , Medical history, Tube feeding Objective Comments: Labs: Na 147, K 5.8, BUN/creat 43/1.82, Et GFR 45, glu 73 Assessment Assessment: Pt is intubated and sedated and needs TFing to meet nutritional needs. Current order is for Nepro @ 40 mls/hr goal. Recommend change to Vital High Protein @ 55 mls/hr to provide 1320 kcals, 116 gms protein and 1104 mls of free water ( and 2112 mgs of potassium). Pt will be receiving additional kcals from high rate propofol (1/1 kcal/ml). Currently receiving 51 mls/hr which provides 1346 kcals/ 24 hrs. Pt would also benefit from additional protein: Beneprotein 1 pack tid for 75 kcals and 18 gms protein. Recommendations: Vital High Protein @ 55 mls/hr Beneprotein 1 pack tid Dietitian to Monitor: Lab values, Intake & Output, Tube feeding tolerance, Weight change, Medical course
--- NOTE | 2018-10-05 16:48 | P.PNWCN ---
Wound Care Nurse Consult Description: Wound Consult for Pressure Ulcer to LEGS per Nancy Victor/Dr Ryan Communicated with: [facility] contacted for a bariatric bed to be delivered. Digna RN- to leave open to air on ultrasorb moisture wicking pad until orders are obtained from physician for shaving cream therapy, lac hydrin, and optifoam AG Q3D. Recommendation: Recommend shaving cream therapy to bilateral lower extremity venous stasis partial thickness skin loss areas and surrounding hyperkeratotic plaques consistent with elephantiasis nostras verrucosa and lymphedema. After shaving cream therapy is completed, it is recommended that the legs by thoroughly dried before applying Lac Hydrin to all non open areas on the lower extremities. Partial thickness wounds can be covered with an optifoam AG and secured with rolled gauze that may remain in place for 3 days unless soiled or dislodged. Shaving cream therapy 1. Apply shaving cream to lower extremities. 2. Cover and wrap with warm moist towels. 3. Leave in place for 10 min. 4. Wipe off. 5. Repeat once for a total of two times. Additional information: Patient seen on for bilateral lower extremities.
[2018-10-05 18:58] LABS: Calcium 7.8 mg/dL (8.5-10.1); Potassium 5.5 meq/L (3.5-5.1)
[2018-10-06] MEDS: Sodium Bicarbonate 8.4% Inj 150 MEQ in Dextrose 5%/NaCl 0.9% Inj 850 ML IV.CONT SCH ×2 (00:57→08:09)
[2018-10-06] MEDS: Propofol 1000 mg/100 ml Inj 1,000 MG/100 ML BOTTLE IV.CONT PRN ×10 (00:57→22:03)
[2018-10-06] MEDS ORDERED: Vancomycin Inj 1,750 MG in Sodium Chlor 0.9% Inj 500 ML IV.SIG SCH (02:00)
[2018-10-06] MEDS: fentaNYL 10 mcg/mL Premix Drip 2,500 MCG/250 ML BAG IV.SIG PRN ×2 (02:07→12:15)
[2018-10-06 02:29] LABS: Baso % (Auto) 0.6 % (0.0-2.0); Eos # (Auto) 0.2 th/mm3 (0.0-0.4); Eos % (Auto) 2.5 % (0.0-4.0); Hematocrit 28.9 % (39.0-51.0); Hemoglobin 9.7 gm/dL (13.0-17.0); Lymph # (Auto) 1.4 th/mm3 (1.0-4.8); Lymph % (Auto) 21.7 % (9.0-44.0); Mean Corpuscular HGB Conc 33.5 % (32.0-36.0); Mean Corpuscular Hemoglobin 32.7 pg (27.0-34.0); Mean Corpuscular Volume 97.8 fL (80.0-100.0); Mean Platelet Volume 11.1 fL (7.0-11.0); Mono # (Auto) 0.7 th/mm3 (0.0-0.9); Mono % (Auto) 10.9 % (0.0-8.0); Neut # (Auto) 4.3 th/mm3 (1.8-7.7); Neut % (Auto) 64.3 % (16.0-70.0); Platelet Count 106 th/mm3 (150-450); Red Blood Count 2.96 mil/mm3 (4.50-5.90); Red Cell Distribution Width 15.3 % (11.6-17.2); White Blood Count 6.6 th/mm3 (4.0-11.0)
[2018-10-06 02:54] LABS: Albumin 2.2 g/dL (3.4-5.0); Anion Gap 8 meq/L (5-15); Aspartate Aminotransferase 11 U/L (15-37); Blood Urea Nitrogen 40 mg/dL (7-18); Calcium 7.5 mg/dL (8.5-10.1); Carbon Dioxide 23.4 meq/L (21.0-32.0); Chloride 118 meq/L (98-107); Glomerular Filtration Rate 45 mL/min (>89); Glucose,Random 82 mg/dL (74-106); Magnesium 1.8 mg/dL (1.5-2.5); Sodium 149 meq/L (136-145)
[2018-10-06 03:03] LABS: Alanine Aminotransferase 8 U/L (12-78); Alkaline Phosphatase 72 U/L (45-117); Phosphorus 1.7 mg/dL (2.5-4.9); Total Protein 5.5 g/dL (6.4-8.2)
[2018-10-06 04:33] LABS: ABG Base Excess -0.3 mmol/L (-2-2); ABG PCO2 28 mmHg (38-42); ABG PO2 55 mmHg (61-120)
[2018-10-06] MEDS: Chlorhexidine Gluconate 2% 1 Pack (2 Cloths) TOPICAL SCH (04:53)
[2018-10-06] MEDS: Heparin - SQ 10,000 UNITS/ML Vial SQ SCH ×3 (05:09→21:31)
[2018-10-06] MEDS: Insulin NovoLIN Regular Correctional Sugar Inj SQ SCH ×3 (05:11→17:04)
[2018-10-06] MEDS: Budesonide-Formoterol 160/4.5 MCG 6 GM Inhaler INH SCH ×2 (07:50→20:52)
[2018-10-06] MEDS: amLODIPine 5 MG Tablet PO SCH (08:09)
[2018-10-06] MEDS: Metoprolol Tartrate 50 MG Tablet PO SCH (08:09)
[2018-10-06] MEDS: Famotidine PF Inj 20 MG/2 ML Vial IV.PUSH SCH ×2 (08:12→21:31)
[2018-10-06] MEDS ORDERED: Lactic Acid (Ammonium Lactate) 12% Lotion 225 GM Bottle TOPICAL PRN (11:10)
--- NOTE | 2018-10-06 11:32 | P.PNWCN ---
Wound Care Nurse Consult Description: Follow up on patient post wound assessment by internal communications writer on 10/05/18. 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 After shaving cream therapy is completed, it is recommended that the legs by thoroughly dried before applying Lac Hydrin to all non open areas on the lower extremities. Partial thickness wounds can be covered with an optifoam AG and secured with rolled gauze that may remain in place for 3 days unless soiled or dislodged. Shaving cream therapy 1. Apply shaving cream to lower extremities. 2. Cover and wrap with warm moist towels. 3. Leave in place for 10 min. 4. Wipe off. 5. Repeat once for a total of two times. Additional information: Orders obtained for wound care. Bariatric bed is being delivered today 10/06/18
[2018-10-06] MEDS ORDERED: Phenylephrine Inj 40 MG in Sodium Chlor 0.9% Inj 496 ML IV.CONT PRN (11:41)
--- NOTE | 2018-10-06 14:09 | P.PNID ---
Subjective Remarks: Patient is a 68-year-old morbidly obese male, presented to the hospital complaining of several day history of abdominal pain and diarrhea. There was no mention of any fever chills or sweats. CT of the abdomen and pelvis did not show any evidence of abnormality in the colon or bowel. His blood pressure is okay, but the patient was hypoxic and worsened respiratory ferrera and ended up getting intubated. He also has evidence of acute kidney injury and hyperkalemia. Patient has since developed significant hypothermia and currently on a warming blanket. He is sedated and intubated. His creatinine is a little bit better, but he remains acidotic and he is on a bicarb drip. Chest x-ray showing bilateral pulmonary infiltrates. Infectious disease consultation has been requested to assist with evaluation and treatment of his sepsis. Notes reviewed D/W RN Sedated on the vent, increased FiO2 Was on titus briefly today Temps better - not on warming blanket Has dignishield in place Stool not sent yet BC negative Antibiotics: Cefepime IV Flagyl IV Vanco PO Vanco Past Medical History: CHF (congestive heart failure) COPD (chronic obstructive pulmonary disease) Diabetes mellitus HTN (hypertension) Lymphedema Pressure ulcer Sleep apnea History of carpal tunnel surgery of right wrist Allergies/Adverse Reactions: Allergies No Known Allergies Allergy (Verified 10/04/18 14:59) Objective Vital Signs 10/05/18 15:00 10/05/18 16:00 10/05/18 16:17 Temperature 97.5 F L 97.9 F Pulse Rate 56 L 58 L 60 Respiratory Rate 22 22 22 Pulse Oximetry 100 100 100 10/05/18 17:00 10/05/18 18:00 10/05/18 19:00 Temperature 98.2 F 97.7 F 98.2 F Pulse Rate 62 63 59 L Respiratory Rate 22 22 22 Pulse Oximetry 100 100 100 10/05/18 19:56 10/05/18 19:58 10/05/18 20:00 Temperature 97.5 F L Pulse Rate 55 L 57 L 64 Respiratory Rate 22 22 20 Pulse Oximetry 100 94 L 10/05/18 21:00 10/05/18 22:00 10/05/18 23:00 Temperature 96.6 F L Pulse Rate 65 58 L 64 Respiratory Rate 22 22 22 Pulse Oximetry 100 98 95 10/05/18 23:55 10/06/18 00:00 10/06/18 01:00 Temperature 96.3 F L Pulse Rate 60 48 L Respiratory Rate 22 22 22 Pulse Oximetry 100 91 L 94 L 10/06/18 02:00 10/06/18 03:00 10/06/18 03:39 Temperature Pulse Rate 52 L 50 L 50 L Respiratory Rate 22 22 22 Pulse Oximetry 93 L 93 L 93 L 10/06/18 04:00 10/06/18 05:00 10/06/18 06:00 Temperature 94.5 F L 95.4 F L 95.7 F L Pulse Rate 53 L 57 L 67 Respiratory Rate 22 19 18 Pulse Oximetry 92 L 95 94 L 10/06/18 07:00 10/06/18 07:42 10/06/18 08:00 Temperature 95.7 F L 95.7 F L Pulse Rate 52 L 51 L 52 L Respiratory Rate 18 18 18 Pulse Oximetry 92 L 92 L 92 L 10/06/18 09:00 10/06/18 10:00 10/06/18 11:00 Temperature 96.1 F L 95.9 F L 96.6 F L Pulse Rate 55 L 53 L 51 L Respiratory Rate 20 Pulse Oximetry 92 L 95 94 L 10/06/18 11:27 10/06/18 12:00 10/06/18 13:00 Temperature 97.2 F L 97.5 F L Pulse Rate 56 L 52 L Respiratory Rate 18 20 20 Pulse Oximetry 93 L 94 L 94 L Intake & Output 10/05/18 10/06/18 10/06/18 18:59 06:59 18:59 Intake Total 3150 / 3150 3467.5 / 3467.5 650 / 650 Output Total 3050 / 3050 250 / 250 Balance 100 / 100 3217.5 / 3217.5 650 / 650 Weight 173.6 kg Intake: IV 1950 / 1950 3467.5 / 3467.5 650 / 650 Diprivan 1000 mg/100 ml Inj 1, 500 / 500 500 / 500 300 / 300 000 mg In 100 ml @ 5 MCG/KG/MIN 5.171 mls/hr IV.CONT TITRATE PRN Rx#:[id number] Sodium Bicarbonate 8.4% Inj 150 1000 / 1000 MEQ In D5W/Normal Saline Inj 850 ML @ 75 mls/hr IV.CONT . [id number] [facility] Rx#:[id number] Sodium Bicarbonate 8.4% Inj 150 1000 / 1000 1000 / 1000 MEQ In Sterile Water for Inj 850 ML @ 75 mls/hr IV.CONT . [id number] [facility] Rx#:[id number] Maxipime Inj 1,000 MG In NS Inj 100 / 100 100 ML @ 200 mls/hr IV.SIG Q24H [facility] Rx#:[id number] Vancomycin Inj 1,750 MG In NS 517.5 / 517.5 Inj 500 ML @ 250 mls/hr IV.SIG Q24H [facility] Rx#:[id number] fentaNYL 10 mcg/mL Premix Drip 250 / 250 250 / 250 250 / 250 2,500 mcg In 250 ml @ 50 MCG/HR 5 mls/hr IV.SIG TITRATE PRN Rx #:[id number] Flagyl 500 MG Inj 100 ML @ 100 200 / 200 100 / 100 100 / 100 mls/hr IV.SIG Q8H [facility] Rx#: [id number] Oral 0 / 0 Tube Irrigant 1200 / 1200 Output: Stool 150 / 150 Urine Amount (Catheter) 3050 / 3050 Indwelling Urethral Catheter 3050 / 3050 Gastric Drainage 100 / 100 Orogastric Tube 100 / 100 Other: Date of Last Bowel Movement 10/06/18 10/06/18 # Bowel Movements 4 10/05/18 00:05 Blood - Peripheral Aerobic Blood Culture - Preliminary No growth in 1 day 10/05/18 00:05 Blood - Peripheral Anaerobic Blood Culture - Preliminary No growth in 1 day 10/05/18 00:00 Blood - Peripheral Aerobic Blood Culture - Preliminary No growth in 1 day 10/05/18 00:00 Blood - Peripheral Anaerobic Blood Culture - Preliminary No growth in 1 day Lab - Hematology Results 10/04/18 10/04/18 10/05/18 15:28 22:30 05:15 WBC 6.8 5.4 5.7 RBC 3.07 L 3.08 L 3.07 L Hgb 10.1 L 9.8 L 9.9 L Hct 32.6 L 32.0 L 31.1 L MCV 106.1 H 103.9 H 101.3 H MCH 33.0 31.9 32.4 MCHC 31.1 L 30.7 L 32.0 RDW 17.7 H 16.5 16.2 Plt Count 116 L 108 L 102 L MPV 11.1 H 10.8 11.1 H Neut % (Auto) 60.2 62.8 52.5 Lymph % (Auto) 24.0 22.4 31.3 [place] % (Auto) 11.8 H 11.5 H 11.7 H Eos % (Auto) 3.1 2.2 3.8 Baso % (Auto) 0.9 1.1 0.7 Neut # (Auto) 4.1 3.4 3.0 Lymph # (Auto) 1.6 1.2 1.8 [place] # (Auto) 0.8 0.6 0.7 Eos # (Auto) 0.2 0.1 0.2 Baso # (Auto) 0.1 0.1 0.0 WBC Differential . . . Differential Comment Auto diff final Auto diff final Auto diff final ESR 36 H 10/06/18 01:56 WBC 6.6 RBC 2.96 L Hgb 9.7 L Hct 28.9 L MCV 97.8 D MCH 32.7 MCHC 33.5 RDW 15.3 Plt Count 106 L MPV 11.1 H Neut % (Auto) 64.3 Lymph % (Auto) 21.7 [place] % (Auto) 10.9 H Eos % (Auto) 2.5 Baso % (Auto) 0.6 Neut # (Auto) 4.3 Lymph # (Auto) 1.4 [place] # (Auto) 0.7 Eos # (Auto) 0.2 Baso # (Auto) 0.0 WBC Differential . Differential Comment Auto diff final ESR Lab - Chemistry Results 10/04/18 10/04/18 10/04/18 15:20 16:30 19:27 Sodium 143 Potassium 7.1 H* Chloride 121 H Carbon Dioxide 17.9 L Anion Gap 4 L BUN 44 H Creatinine 2.01 H Estimated GFR 40 L POC Glucose 61 L Random Glucose 87 Lactic Acid 0.6 Calcium 8.0 L Phosphorus Magnesium 2.3 Total Bilirubin 0.4 AST 19 ALT 11 L Alkaline Phosphatase 96 Total Creatine Kinase CK-MB (CK-2) Troponin I C-Reactive Protein B-Natriuretic Peptide Total Protein 7.3 Albumin 3.1 L Lipase 104 Procalcitonin TSH 10/04/18 10/04/18 10/04/18 22:30 22:30 22:30 Sodium 146 H Potassium 6.8 H* Chloride 122 H Carbon Dioxide 19.3 L Anion Gap 5 BUN 44 H Creatinine 2.02 H Estimated GFR 40 L POC Glucose Random Glucose 92 Lactic Acid 0.6 Calcium 7.5 L Phosphorus 3.1 Magnesium 2.3 Total Bilirubin 0.4 AST 17 ALT 11 L Alkaline Phosphatase 83 Total Creatine Kinase 241 CK-MB (CK-2) 4.6 H Troponin I 0.05 C-Reactive Protein 1.10 H B-Natriuretic Peptide Total Protein 6.4 D Albumin 2.7 L Lipase Procalcitonin 0.14 H TSH 10/05/18 10/05/18 10/05/18 03:00 03:00 05:15 Sodium 147 H 147 H Potassium 5.9 H D 5.8 H Chloride 121 H 120 H Carbon Dioxide 20.6 L 21.7 Anion Gap 5 5 BUN 43 H 43 H Creatinine 1.89 H 1.82 H Estimated GFR 43 L 45 L POC Glucose Random Glucose 101 73 L Lactic Acid Calcium 8.3 L D 8.1 L Phosphorus 1.9 L D Magnesium 2.0 Total Bilirubin 0.4 AST 18 ALT 9 L Alkaline Phosphatase 79 Total Creatine Kinase CK-MB (CK-2) Troponin I C-Reactive Protein B-Natriuretic Peptide Total Protein 6.1 L Albumin 2.6 L Lipase Procalcitonin TSH 1.110 10/05/18 10/05/18 10/05/18 05:15 06:05 12:19 Sodium Potassium Chloride Carbon Dioxide Anion Gap BUN Creatinine Estimated GFR POC Glucose 73 67 L Random Glucose Lactic Acid Calcium Phosphorus Magnesium Total Bilirubin AST ALT Alkaline Phosphatase Total Creatine Kinase CK-MB (CK-2) Troponin I C-Reactive Protein B-Natriuretic Peptide 658 H Total Protein Albumin Lipase Procalcitonin [facility] 10/05/18 10/05/18 10/05/18 12:20 12:48 17:21 Sodium Potassium Chloride Carbon Dioxide Anion Gap BUN Creatinine Estimated GFR POC Glucose 61 L 90 86 Random Glucose Lactic Acid Calcium Phosphorus Magnesium Total Bilirubin AST ALT Alkaline Phosphatase Total Creatine Kinase CK-MB (CK-2) Troponin I C-Reactive Protein B-Natriuretic Peptide Total Protein Albumin Lipase Procalcitonin [facility] 10/05/18 10/05/18 10/06/18 18:00 20:50 01:56 Sodium 146 H 149 H Potassium 5.5 H 5.3 H 5.0 Chloride 117 H 118 H Carbon Dioxide 24.0 23.4 Anion Gap 5 8 BUN 42 H 40 H Creatinine 1.76 H 1.83 H Estimated GFR 47 L 45 L POC Glucose Random Glucose 81 82 Lactic Acid Calcium 7.8 L 7.5 L Phosphorus 1.7 L Magnesium 1.8 Total Bilirubin 0.4 AST 11 L ALT 8 L Alkaline Phosphatase 72 Total Creatine Kinase CK-MB (CK-2) Troponin I C-Reactive Protein B-Natriuretic Peptide Total Protein 5.5 L D Albumin 2.2 L Lipase Procalcitonin TSH 10/06/18 10/06/18 10/06/18 01:56 08:01 12:00 Sodium Potassium Chloride Carbon Dioxide Anion Gap BUN Creatinine Estimated GFR POC Glucose 82 93 Random Glucose Lactic Acid Calcium Phosphorus Magnesium Total Bilirubin AST ALT Alkaline Phosphatase Total Creatine Kinase CK-MB (CK-2) Troponin I C-Reactive Protein B-Natriuretic Peptide 199 H Total Protein Albumin Lipase Procalcitonin TSH Imaging: ITS Impressions Abdomen/Pelvis CT 10/04/18 15:12 CONCLUSION: 1. Mild interstitial prominence and airspace disease in the left lung base. 2. Mildly enlarged adrenal glands which may be hyperplastic. 3. No evidence of inflammatory bowel disease, biliary obstructive disease, hydronephrosis, suspicious mass or lymphadenopathy. Chest X-Ray 10/05/18 05:00 CONCLUSION: Worsening aeration Physical Exam: GENERAL: Patient is a morbidly obese, well-developed male, sedated on the vent , not in respiratory distress. SKIN: Warm and dry. He is on warming blanket. No generalized rash. Has some scattered bullous lesions in BUE HEAD: Atraumatic. Normocephalic. No temporal wasting, or tenderness. EYES: [place] conjunctiva. No petechia or hemorrhage. No scleral icterus. No injection or drainage. Has some edema of the face EARS, NOSE AND THROAT: Nose without bleeding or purulent nasal discharge. He is orally intubated. NECK: Neck is short and obese, supple CARDIOVASCULAR: Regular rate and rhythm. No murmurs, rubs or gallops heard RESPIRATORY: Coarse breath sounds bilaterally, decreased at the bases. ABDOMEN: Soft, obese, mildly distended, no reaction to palpation. Bowel sounds hypoactive. EXTREMITIES: No clubbing, cyanosis. Has chronic skin changes in both LE, tree bark appearance of skin, with clean superficial ulcers, NEUROLOGICAL: Sedated PSYCHIATRIC: Unable to assess. LINE: No evidence of infection Assessment and Plan - Plan Impression Sepsis on admission - source? - came in with abdominal pain and diarrhea, CT no evidence of colitis, had recent Abx for toe infection, ?C diff, ?other etiology gastroenteritis - bilateral infiltrates, likely CHF; did not have PNA symptoms on presentation - UA ok - has leg ulcers, but look ok, has chronic LE edema Hypothermia Respiratory failure CHRISTAL Morbid obesity Recommendation Follow C/S Check stool C diff Continue current empiric Abx Follow temps Monitor progress D/W RN
--- NOTE | 2018-10-06 15:21 | P.PNCC ---
Subjective Subjective Remarks/Hospital Course: 10/04: This is a 68-year-old morbidly obese -[place] male who presented to the emergency department for abdominal pain and diarrhea. CT abdomen pelvis at that time demonstrates probable colitis. Always in the emergency department he became more more somnolent as well as hypoxic. He was tried on BiPAP, but his PCO2 continued to rise. He was emergently intubated. In addition all this he has severe acute kidney injury with associated severe hyperkalemia with a potassium greater than 7 not responsive to initial medical management. On my evaluation he is intubated and sedated no new additional information is available from him. Chest x-ray demonstrates acute pulmonary edema. The patient responded to 200 mg of IV Lasix with improving potassium and so emergent dialysis was not required. Patient however does remain severely acidotic despite IV bicarbonate and a bicarbonate infusion was started. Review of systems is unobtainable. 10/05: Orally intubated on mechanical ventilation, sedated, arousable. Potassium 5.9 this morning. Additional Kayexalate ordered. Hypothermic requiring Mariaelena hugger. Check TSH which is within normal limits. Elevated blood pressure for which hydralazine as needed was ordered which helped. 10/06: Remains intubated heavily sedated for vent synchrony. Worsening hypoxia FiO2 increased to 60% PEEP to 10. Urine output improved with the diuresis. Borderline hypotensive placed on Archie-Synephrine briefly. I will increase cefepime to antipseudomonal dose. C. difficile and sputum cultures are pending at this time his bradycardia bring his heart rate up from 40s to 50s. Objective Vital Signs / I&O: Vital Signs 10/05/18 16:00 10/05/18 16:17 10/05/18 17:00 Temperature 97.9 F 98.2 F Pulse Rate 58 L 60 62 Respiratory Rate 22 22 22 Pulse Oximetry 100 100 100 10/05/18 18:00 10/05/18 19:00 10/05/18 19:56 Temperature 97.7 F 98.2 F Pulse Rate 63 59 L 55 L Respiratory Rate 22 22 22 Pulse Oximetry 100 100 100 10/05/18 19:58 10/05/18 20:00 10/05/18 21:00 Temperature 97.5 F L 96.6 F L Pulse Rate 57 L 64 65 Respiratory Rate 22 20 22 Pulse Oximetry 94 L 100 10/05/18 22:00 10/05/18 23:00 10/05/18 23:55 Temperature Pulse Rate 58 L 64 Respiratory Rate 22 22 22 Pulse Oximetry 98 95 100 10/06/18 00:00 10/06/18 01:00 10/06/18 02:00 Temperature 96.3 F L Pulse Rate 60 48 L 52 L Respiratory Rate 22 22 22 Pulse Oximetry 91 L 94 L 93 L 10/06/18 03:00 10/06/18 03:39 10/06/18 04:00 Temperature 94.5 F L Pulse Rate 50 L 50 L 53 L Respiratory Rate 22 22 22 Pulse Oximetry 93 L 93 L 92 L 10/06/18 05:00 10/06/18 06:00 10/06/18 07:00 Temperature 95.4 F L 95.7 F L 95.7 F L Pulse Rate 57 L 67 52 L Respiratory Rate 19 18 18 Pulse Oximetry 95 94 L 92 L 10/06/18 07:42 10/06/18 08:00 10/06/18 09:00 Temperature 95.7 F L 96.1 F L Pulse Rate 51 L 52 L 55 L Respiratory Rate 18 18 Pulse Oximetry 92 L 92 L 92 L 10/06/18 10:00 10/06/18 11:00 10/06/18 11:27 Temperature 95.9 F L 96.6 F L Pulse Rate 53 L 51 L Respiratory Rate 20 18 Pulse Oximetry 95 94 L 93 L 10/06/18 12:00 10/06/18 13:00 10/06/18 14:00 Temperature 97.2 F L 97.5 F L 97.2 F L Pulse Rate 56 L 52 L 51 L Respiratory Rate 20 20 18 Pulse Oximetry 94 L 94 L 94 L Intake & Output 10/05/18 10/06/18 10/06/18 18:59 06:59 18:59 Intake Total 3150 / 3150 3467.5 / 3467.5 1750 / 1750 Output Total 3050 / 3050 250 / 250 Balance 100 / 100 3217.5 / 3217.5 175 / 175 Weight 173.6 kg Intake: IV 1950 / 1949 3467.5 / 3467.5 1750 / 175 Diprivan 1000 mg/100 ml Inj 1, 500 / 500 500 / 500 300 / 300 000 mg In 100 ml @ 5 MCG/KG/MIN 5.171 mls/hr IV.CONT TITRATE PRN Rx#:[id number] Sodium Bicarbonate 8.4% Inj 150 1000 / 1000 1000 / 1000 MEQ In D5W/Normal Saline Inj 850 ML @ 75 mls/hr IV.CONT . [id number] TABITHA Rx#:[id number] Sodium Bicarbonate 8.4% Inj 150 1000 / 1000 1000 / 1000 MEQ In Sterile Water for Inj 850 ML @ 75 mls/hr IV.CONT . [id number] TABITHA Rx#:[id number] Maxipime Inj 1,000 MG In NS Inj 100 / 100 100 ML @ 200 mls/hr IV.SIG Q24H [facility] Rx#:[id number] Vancomycin Inj 1,750 MG In NS 517.5 / 517.5 Inj 500 ML @ 250 mls/hr IV.SIG Q24H [facility] Rx#:[id number] fentaNYL 10 mcg/mL Premix Drip 250 / 250 250 / 250 250 / 250 2,500 mcg In 250 ml @ 50 MCG/HR 5 mls/hr IV.SIG TITRATE PRN Rx #:[id number] Flagyl 500 MG Inj 100 ML @ 100 200 / 200 100 / 100 200 / 200 mls/hr IV.SIG Q8H [facility] Rx#: [id number] Oral 0 / 0 Tube Irrigant 1200 / 1200 Output: Stool 150 / 150 Urine Amount (Catheter) 3050 / 3050 Indwelling Urethral Catheter 3050 / 3050 Gastric Drainage 100 / 100 Orogastric Tube 100 / 100 Other: Date of Last Bowel Movement 10/06/18 10/06/18 # Bowel Movements 4 Result Diagrams: 10/06/18 01:56 10/06/18 01:56 Objective Remarks: GENERAL: Morbidly obese middle-aged male, lying in bed, intubated, sedated, critically ill HEENT: Normocephalic. Atraumatic. Pupils equal, round, reactive, conjugate. Orotracheally intubated NECK: Trachea is midline. JVD is unable to be assessed due to large neck circumference CHEST: PRVC, FiO2 60%, PEEP 10 equal chest rise. CARDIOVASCULAR: Bradycardic rate, regular rhythm. Hypotensive with systolics in the 100s. ABDOMEN: Soft, morbidly obese, nontender, nondistended. No guarding. MUSCULOSKELETAL: Pulses 2+. 2+ peripheral edema. Bilateral lower extremities have venous stasis changes as well as open ulcerations which are dressed. These are erythematous and indurated. NEUROLOGICAL: Sedated/ encephalopathic, orally intubated. Withdraws x4. Following commands intermittently Assessment and Plan - Assessment and Plan Plan: Assessment: 68yM with acute multiorgan dysfunction. Differential includes severe sepsis, most likely secondary to colitis versus bilateral LE cellulitis. Acute kidney injury is causing severe hyperkalemia which is now being controlled medically. He also has a significant acute volume overload component which is responding also to iv diuretics. Severe acidosis pronounced and may be combination of acute renal failure as well as severe sepsis. He is very critically ill in multiorgan failure. Plan by systems: Neurologic: Acute metabolic encephalopathy Propofol and fentanyl for goal RASS -2 Frequent neurochecks Avoid long-acting sedatives Start daily sedation medication Respiratory: Acute hypoxic and hypercarbic respiratory failure Acute severe pulmonary edema PRVC AC PEEP 10 FiO2 60% diuresis, Vent bundle Head of bed elevated, Nebs Wean FiO2 for goal SPO2 greater than 90% Start SBTs once acidosis, oxygenation is better Cardiovascular: Severe sepsis Acute congestive heart failure exacerbation, unknown type Hypotension Forced diuresis Placed arterial line for more accurate blood pressure monitoring Levophed to keep map above 65 2D echo done February 2018 showed ejection fraction 50% Renal: Severe acute kidney injury Hyperkalemia-improved Place Foster with urometer Q1 hour urine output checks Forced diuresis Received Kayexalate via OG tube. On bicarb drip-continue today Strict intake output, monitor and replete electrolytes, follow BUN creatinine. FEN/GI: Severe acute intravascular volume overload Morbid obesity Severe life-threatening hyperkalemia-resolved Severe anion gap metabolic acidosis Diarrhea orogastric tube in place. Tube feeds with Nepro. Status post 2 rounds of medical management for hyperkalemia: Calcium, D50, insulin, bicarbonate. Continue Kayexalate. Forced diuresis with loop diuretics Serial potassium monitoring Serial ABGs Bicarbonate infusion will be discontinued today Heme/ID: Diarrhea: ? gastroenteritis Bilateral lower extremity cellulitis Severe sepsis Probable pneumonia Vancomycin Cefepime-change to antipseudomonal dose Flagyl IV P.o. Vanco empirically until C. difficile toxin returns Sputum culture, follow-up blood culture Stool for enteric pathogens/ WBCs pending. ID Dr. Dimayuga Blood cultures, Sputum culture, Urine culture Endocrine: SSI TSH WNL Prophylaxis: GI Prophylaxis PPI DVT Prophylaxis -- SCDs Subcu heparin Lines: 10/04 radial arterial line This patient remains critically ill with one or more organ systems which are or may become a threat to life. I have spent in excess of 35 minutes discontinuously in the care and management of this patient. This time is exclusive of procedures, and includes, but is not limited to, evaluation of the patient, review of the medical record, discussions with family, consultants, nursing staff, or respiratory therapy, and documentation in the medical record.
--- NOTE | 2018-10-06 15:48 | XR ---
EXAM DATE: 10/06/2018 3:44 PM EST AGE/SEX: 68 years / Male INDICATIONS: Respiratory status. CLINICAL DATA: This is the patient's subsequent encounter. Patient reports that signs and symptoms h ave been present for 4 - 6 days and indicates a pain score of Nonresponsive. MEDICAL/SURGICAL HISTORY: . : Congestive heart failure. Chronic obstructive pulmonary disease. Diabetes. Hypertension. Smoker. None. [place] [facility] [place]. . FINDINGS: Stable ETT. Interval placement of NGT coursing beyond the GE junction. Redemonstration of diffuse air space consolidation throughout the left lung and in the right lower lung zone. Cardiomegaly mediastin al contours are stable with indistinct central pulmonary vascularity. CONCLUSION: 1. Stable ETT. NGT beyond the GE junction. 2. No significant interval change with persistent diffuse left-sided and right lower lobe airspace d isease. Electronically signed by: Marcelo Vásquez MD 10/06/2018 3:46 PM EST
[2018-10-06 15:52] LABS: ABG Base Excess 1.1 mmol/L (-2-2); ABG PCO2 40 mmHg (38-42); ABG PO2 97 mmHg (61-120)
--- NOTE | 2018-10-06 20:11 | ECG ---
Date Performed: 10/05/2018 Time Performed: 07:51:24 PTAGE: 68 years EKG: Sinus bradycardia Prolonged QT interval Leftward axis Possible anterior infarct - age undet ermined Low QRS voltages in limb leads Abnormal ECG PREVIOUS TRACING : 10/04/2018 17.47 DOCTOR: Justin Howard Interpretating Date/Time 10/06/2018 20:10:32
[2018-10-07] MEDS: Insulin NovoLIN Regular Correctional Sugar Inj SQ SCH ×4 (00:16→17:59)
[2018-10-07] MEDS: Propofol 1000 mg/100 ml Inj 1,000 MG/100 ML BOTTLE IV.CONT PRN ×8 (01:19→23:49)
[2018-10-07] MEDS: fentaNYL 10 mcg/mL Premix Drip 2,500 MCG/250 ML BAG IV.SIG PRN ×2 (02:04→22:16)
[2018-10-07 04:11] LABS: Baso # (Auto) 0.1 th/mm3 (0.0-0.2); Eos # (Auto) 0.2 th/mm3 (0.0-0.4); Eos % (Auto) 3.3 % (0.0-4.0); Hematocrit 29.5 % (39.0-51.0); Hemoglobin 9.5 gm/dL (13.0-17.0); Lymph # (Auto) 1.7 th/mm3 (1.0-4.8); Lymph % (Auto) 22.3 % (9.0-44.0); Mean Corpuscular HGB Conc 32.4 % (32.0-36.0); Mean Corpuscular Hemoglobin 32.3 pg (27.0-34.0); Mean Corpuscular Volume 99.7 fL (80.0-100.0); Mean Platelet Volume 10.5 fL (7.0-11.0); Mono # (Auto) 0.8 th/mm3 (0.0-0.9); Mono % (Auto) 11.1 % (0.0-8.0); Neut # (Auto) 4.6 th/mm3 (1.8-7.7); Neut % (Auto) 62.3 % (16.0-70.0); Platelet Count 108 th/mm3 (150-450); Red Blood Count 2.96 mil/mm3 (4.50-5.90); Red Cell Distribution Width 15.8 % (11.6-17.2); White Blood Count 7.4 th/mm3 (4.0-11.0)
[2018-10-07] MEDS: Chlorhexidine Gluconate 2% 1 Pack (2 Cloths) TOPICAL SCH (04:30)
[2018-10-07 04:43] LABS: Albumin 1.9 g/dL (3.4-5.0); Calcium 7.4 mg/dL (8.5-10.1); Carbon Dioxide 26.3 meq/L (21.0-32.0); Magnesium 1.8 mg/dL (1.5-2.5); Phosphorus 2.2 mg/dL (2.5-4.9); Potassium 4.5 meq/L (3.5-5.1); Total Protein 5.4 g/dL (6.4-8.2); Vancomycin,Random 21.4 Comment
[2018-10-07 05:43] LABS: ABG Base Excess -0.2 mmol/L (-2-2); ABG PCO2 32 mmHg (38-42); ABG PO2 130 mmHg (61-120)
--- NOTE | 2018-10-07 06:06 | XR ---
EXAM DATE: 10/07/2018 5:34 AM EST AGE/SEX: 68 years / Male INDICATIONS: Shortness of breath, possible respiratory disease. CLINICAL DATA: This is the patient's subsequent encounter. Patient reports that signs and symptoms h ave been present for 4 - 6 days and indicates a pain score of Nonresponsive. MEDICAL/SURGICAL HISTORY: . Congestive heart failure. Chronic obstructive pulmonary disease. Di abetes. Hypertension. Smoker. None. COMPARISON: [facility] – [place]ST 1V SINGLE AP, 10/06/2018. . FINDINGS: Endotracheal tube is present with tip several centimeters above the jeremias. Nasogastric tube descends to the stomach. There has been some improvement in aeration with near complete clearance of the righ t lung. Persistent left perihilar and left base infiltrate. Cardiac contours are grossly unchanged. CONCLUSION: Improving aeration Electronically signed by: Armond Ybarra MD 10/07/2018 6:05 AM EST
[2018-10-07] MEDS: Heparin - SQ 10,000 UNITS/ML Vial SQ SCH ×3 (06:16→21:17)
[2018-10-07] MEDS: Budesonide-Formoterol 160/4.5 MCG 6 GM Inhaler INH SCH ×2 (08:26→21:14)
[2018-10-07] MEDS: Famotidine PF Inj 20 MG/2 ML Vial IV.PUSH SCH ×2 (08:43→21:17)
[2018-10-07] MEDS ORDERED: niCARdipine 20mg/NS Premix 20 MG/200 ML PIGGYBACK IV.SIG PRN (08:44)
--- NOTE | 2018-10-07 10:09 | P.PNCC ---
Subjective Subjective Remarks/Hospital Course: 10/04: This is a 68-year-old morbidly obese -[place] male who presented to the emergency department for abdominal pain and diarrhea. CT abdomen pelvis at that time demonstrates probable colitis. Always in the emergency department he became more more somnolent as well as hypoxic. He was tried on BiPAP, but his PCO2 continued to rise. He was emergently intubated. In addition all this he has severe acute kidney injury with associated severe hyperkalemia with a potassium greater than 7 not responsive to initial medical management. On my evaluation he is intubated and sedated no new additional information is available from him. Chest x-ray demonstrates acute pulmonary edema. The patient responded to 200 mg of IV Lasix with improving potassium and so emergent dialysis was not required. Patient however does remain severely acidotic despite IV bicarbonate and a bicarbonate infusion was started. Review of systems is unobtainable. 10/05: Orally intubated on mechanical ventilation, sedated, arousable. Potassium 5.9 this morning. Additional Kayexalate ordered. Hypothermic requiring Mariaelena hugger. Check TSH which is within normal limits. Elevated blood pressure for which hydralazine as needed was ordered which helped. 10/06: Remains intubated heavily sedated for vent synchrony. Worsening hypoxia FiO2 increased to 60% PEEP to 10. Urine output improved with the diuresis. Borderline hypotensive placed on Archie-Synephrine briefly. I will increase cefepime to antipseudomonal dose. C. difficile and sputum cultures are pending at this time his bradycardia bring his heart rate up from 40s to 50s. 10/07: Remains critical but making some improvement. Chest x-ray shows interval improvement in bilateral infiltrates. Even on sedation patient able to wake up and follow commands. FiO2 reduced to 50% PEEP remains at 8. Objective Vital Signs / I&O: Vital Signs 10/06/18 10:00 10/06/18 11:00 10/06/18 11:27 Temperature 95.9 F L 96.6 F L Pulse Rate 53 L 51 L Respiratory Rate 20 18 Pulse Oximetry 95 94 L 93 L 10/06/18 12:00 10/06/18 13:00 10/06/18 14:00 Temperature 97.2 F L 97.5 F L 97.2 F L Pulse Rate 56 L 52 L 51 L Respiratory Rate 20 20 18 Pulse Oximetry 94 L 94 L 94 L 10/06/18 15:00 10/06/18 15:56 10/06/18 16:00 Temperature 97.0 F L 97.0 F L Pulse Rate 59 L 68 65 Respiratory Rate 20 18 20 Pulse Oximetry 93 L 95 96 10/06/18 17:00 10/06/18 18:00 10/06/18 19:00 Temperature 97.7 F 98.4 F 99.1 F Pulse Rate 78 58 L 70 Respiratory Rate 20 20 20 Pulse Oximetry 97 96 95 10/06/18 20:00 10/06/18 20:53 10/06/18 21:00 Temperature 99.1 F 98.2 F Pulse Rate 54 L 61 59 L Respiratory Rate 20 18 20 Pulse Oximetry 96 96 97 10/06/18 21:06 10/06/18 22:00 10/06/18 23:00 Temperature 98.8 F 98.8 F Pulse Rate 61 63 56 L Respiratory Rate 18 20 20 Pulse Oximetry 97 96 10/06/18 23:44 10/07/18 00:00 10/07/18 01:00 Temperature 98.1 F 97.7 F Pulse Rate 48 L 50 L Respiratory Rate 18 18 18 Pulse Oximetry 97 97 98 10/07/18 02:00 10/07/18 03:00 10/07/18 03:53 Temperature 97.5 F L 97.2 F L Pulse Rate 49 L 53 L 55 L Respiratory Rate 18 18 18 Pulse Oximetry 96 97 96 10/07/18 04:00 10/07/18 05:00 10/07/18 06:00 Temperature 97.9 F 98.1 F 97.9 F Pulse Rate 66 62 73 Respiratory Rate 18 18 18 Pulse Oximetry 97 91 L 99 10/07/18 08:00 10/07/18 08:32 10/07/18 09:00 Temperature 99.0 F 98.6 F Pulse Rate 57 L 61 69 Respiratory Rate 18 18 18 Pulse Oximetry 95 95 97 Intake & Output 10/06/18 10/07/18 10/07/18 18:59 06:59 18:59 Intake Total 2189 / 2189 950 / 950 493 / 493 Output Total 650 / 650 625 / 625 Balance 1539 / 1539 950 / 950 -132 / -132 Weight 169.1 kg Intake: IV 1950 / 1950 950 / 950 200 / 200 Diprivan 1000 mg/100 ml Inj 1, 400 / 400 500 / 500 100 / 100 000 mg In 100 ml @ 5 MCG/KG/MIN 5.171 mls/hr IV.CONT TITRATE PRN Rx#:[id number] Sodium Bicarbonate 8.4% Inj 150 1000 / 1000 MEQ In D5W/Normal Saline Inj 850 ML @ 75 mls/hr IV.CONT . [id number] TABITHA Rx#:[id number] Maxipime Inj 1,000 MG In NS Inj 100 / 100 100 / 100 100 ML @ 200 mls/hr IV.SIG Q12H [facility] Rx#:[id number] fentaNYL 10 mcg/mL Premix Drip 250 / 250 250 / 250 2,500 mcg In 250 ml @ 50 MCG/HR 5 mls/hr IV.SIG TITRATE PRN Rx #:[id number] Flagyl 500 MG Inj 100 ML @ 100 200 / 200 100 / 100 100 / 100 mls/hr IV.SIG Q8H [facility] Rx#: [id number] Tube Feeding 239 / 239 293 / 293 Output: Stool 100 / 100 50 / 50 Urine Amount (Catheter) 550 / 550 575 / 575 Indwelling Urethral Catheter 550 / 550 575 / 575 Other: Date of Last Bowel Movement 10/06/18 10/07/18 10/06/18 # Bowel Movements 3 # Incontinent Bowel Movements 2 Result Diagrams: 10/07/18 03:50 10/07/18 03:50 Objective Remarks: GENERAL: Morbidly obese middle-aged male, lying in bed, intubated, sedated, critically ill HEENT: Normocephalic. Atraumatic. Pupils equal, round, reactive, conjugate. Orotracheally intubated NECK: Trachea is midline. JVD is unable to be assessed due to large neck circumference CHEST: PRVC, FiO2 50%, PEEP 10 equal chest rise. CARDIOVASCULAR: Bradycardic rate, regular rhythm. Normotensive at this time ABDOMEN: Soft, morbidly obese, nontender, nondistended. No guarding. MUSCULOSKELETAL: Pulses 2+. 2+ peripheral edema. Bilateral lower extremities have venous stasis changes as well as open ulcerations which are dressed. These are erythematous and indurated. NEUROLOGICAL: Sedated/ encephalopathic, orally intubated. Withdraws x4. Following commands on lightening sedation Assessment and Plan - Assessment and Plan Plan: Assessment: 68yM with acute multiorgan dysfunction. Differential includes severe sepsis, most likely secondary to colitis versus bilateral LE cellulitis vs pneumonia. Acute kidney injury is causing severe hyperkalemia which is now being controlled medically. He also has a significant acute volume overload component which is responding also to iv diuretics. Severe acidosis may be combination of acute renal failure as well as severe sepsis, also respiratory acidosis. He is critically ill in multiorgan failure, but stabilizing and slightly improving. Plan by systems: Neurologic: Acute metabolic encephalopathy Propofol and fentanyl for goal RASS -1 Frequent neurochecks Avoid long-acting sedatives Start daily sedation vacation Respiratory: Acute hypoxic and hypercarbic respiratory failure Acute severe pulmonary edema Probable pneumonia PRVC AC PEEP 10 FiO2 50%. Wean PEEP to 8, initiate breathing trials diuresis, Vent bundle, breathing treatments Head of bed elevated, Nebs Wean FiO2 for goal SPO2 greater than 90% See ID section for antibiotics Cardiovascular: Severe sepsis Acute congestive heart failure exacerbation Hypotension Forced diuresis. Arterial line for more accurate blood pressure monitoring Levophed if needed to keep map above 65 2D echo done February 2018 showed ejection fraction 50% Renal: Severe acute kidney injury Hyperkalemia-improved Place Foster with urometer Q1 hour urine output checks Forced diuresis Received Kayexalate via OG tube. Off bicarb drip Strict intake output, monitor and replete electrolytes, follow BUN creatinine. FEN/GI: Severe acute intravascular volume overload Morbid obesity Severe life-threatening hyperkalemia-resolved Severe anion gap metabolic acidosis Diarrhea orogastric tube in place. Tube feeds with Nepro. Status post 2 rounds of medical management for hyperkalemia: Calcium, D50, insulin, bicarbonate. Continue Kayexalate. Forced diuresis with loop diuretics Serial potassium monitoring Serial ABGs Heme/ID: Diarrhea: ? gastroenteritis Bilateral lower extremity cellulitis Severe sepsis Probable pneumonia Vancomycin, Cefepime-changed to antipseudomonal dose Flagyl IV. P.o. Vanco empirically until C. difficile toxin returns-C. difficile negative will DC p.o. vancomycin Sputum culture, follow-up blood culture Stool for enteric pathogens/ WBCs pending. ID Dr. Lawson Blood cultures, Sputum culture, Urine culture Endocrine: SSI TSH WNL Prophylaxis: GI Prophylaxis PPI DVT Prophylaxis -- SCDs Subcu heparin Lines: 10/04 radial arterial line This patient remains critically ill with one or more organ systems which are or may become a threat to life. I have spent in excess of 35 minutes discontinuously in the care and management of this patient. This time is exclusive of procedures, and includes, but is not limited to, evaluation of the patient, review of the medical record, discussions with family, consultants, nursing staff, or respiratory therapy, and documentation in the medical record. Code Status: Full
[2018-10-07] MEDS ORDERED: Vancomycin Inj 2,500 MG in Sodium Chlor 0.9% Inj 500 ML IV.SIG ONE (14:00)
--- NOTE | 2018-10-07 16:17 | P.PNID ---
Subjective Remarks: Patient is a 68-year-old morbidly obese male, presented to the hospital complaining of several day history of abdominal pain and diarrhea. There was no mention of any fever chills or sweats. CT of the abdomen and pelvis did not show any evidence of abnormality in the colon or bowel. His blood pressure is okay, but the patient was hypoxic and worsened respiratory ferrera and ended up getting intubated. He also has evidence of acute kidney injury and hyperkalemia. Patient has since developed significant hypothermia and currently on a warming blanket. He is sedated and intubated. His creatinine is a little bit better, but he remains acidotic and he is on a bicarb drip. Chest x-ray showing bilateral pulmonary infiltrates. Infectious disease consultation has been requested to assist with evaluation and treatment of his sepsis. Notes reviewed D/W RN On sedation, but he wakes up and responding On and off pressors last night, BP ok all day so far On warming blanket last night C diff negative Sputum NF BC negative CXR better WBC ok Creatinine staying 1.8 Not on bicarb drip Antibiotics: Cefepime IV Flagyl IV Vanco PO Vanco Past Medical History: CHF (congestive heart failure) COPD (chronic obstructive pulmonary disease) Diabetes mellitus HTN (hypertension) Lymphedema Pressure ulcer Sleep apnea History of carpal tunnel surgery of right wrist Allergies/Adverse Reactions: Allergies No Known Allergies Allergy (Verified 10/04/18 14:59) Objective Vital Signs 10/06/18 17:00 10/06/18 18:00 10/06/18 19:00 Temperature 97.7 F 98.4 F 99.1 F Pulse Rate 78 58 L 70 Respiratory Rate 20 20 20 Pulse Oximetry 97 96 95 10/06/18 20:00 10/06/18 20:53 10/06/18 21:00 Temperature 99.1 F 98.2 F Pulse Rate 54 L 61 59 L Respiratory Rate 20 18 20 Pulse Oximetry 96 96 97 10/06/18 21:06 10/06/18 22:00 10/06/18 23:00 Temperature 98.8 F 98.8 F Pulse Rate 61 63 56 L Respiratory Rate 18 20 20 Pulse Oximetry 97 96 10/06/18 23:44 10/07/18 00:00 10/07/18 01:00 Temperature 98.1 F 97.7 F Pulse Rate 48 L 50 L Respiratory Rate 18 18 18 Pulse Oximetry 97 97 98 10/07/18 02:00 10/07/18 03:00 10/07/18 03:53 Temperature 97.5 F L 97.2 F L Pulse Rate 49 L 53 L 55 L Respiratory Rate 18 18 18 Pulse Oximetry 96 97 96 10/07/18 04:00 10/07/18 05:00 10/07/18 06:00 Temperature 97.9 F 98.1 F 97.9 F Pulse Rate 66 62 73 Respiratory Rate 18 18 18 Pulse Oximetry 97 91 L 99 10/07/18 08:00 10/07/18 08:32 10/07/18 09:00 Temperature 99.0 F 98.6 F Pulse Rate 57 L 61 69 Respiratory Rate 18 18 18 Pulse Oximetry 95 95 97 10/07/18 10:00 10/07/18 11:00 10/07/18 12:00 Temperature 98.6 F 98.2 F 98.1 F Pulse Rate 75 78 77 Respiratory Rate 18 22 Pulse Oximetry 97 97 95 10/07/18 12:04 10/07/18 12:57 10/07/18 13:00 Temperature 98.1 F Pulse Rate 100 H Respiratory Rate 12 16 Pulse Oximetry 93 L 91 L 91 L 10/07/18 14:00 10/07/18 15:00 10/07/18 15:39 Temperature 97.5 F L 97.2 F L Pulse Rate 94 H 84 83 Respiratory Rate 18 18 12 Pulse Oximetry 93 L 91 L 94 L Intake & Output 10/06/18 10/07/18 10/07/18 18:59 06:59 18:59 Intake Total 2189 / 2189 950 / 950 1018 / 1018 Output Total 650 / 650 625 / 625 Balance 1539 / 1539 950 / 950 393 / 393 Weight 169.1 kg Intake: IV 1950 / 1950 950 / 950 725 / 725 Diprivan 1000 mg/100 ml Inj 1, 400 / 400 500 / 500 100 / 100 000 mg In 100 ml @ 5 MCG/KG/MIN 5.171 mls/hr IV.CONT TITRATE PRN Rx#:[id number] Sodium Bicarbonate 8.4% Inj 150 1000 / 1000 MEQ In D5W/Normal Saline Inj 850 ML @ 75 mls/hr IV.CONT . [id number] [facility] Rx#:[id number] Maxipime Inj 1,000 MG In NS Inj 100 / 100 100 / 100 100 ML @ 200 mls/hr IV.SIG Q12H [facility] Rx#:[id number] Vancomycin Inj 2,500 MG In NS 525 / 525 Inj 500 ML @ 250 mls/hr IV.SIG ONCE ONE Rx#:[id number] fentaNYL 10 mcg/mL Premix Drip 250 / 250 250 / 250 2,500 mcg In 250 ml @ 50 MCG/HR 5 mls/hr IV.SIG TITRATE PRN Rx #:[id number] Flagyl 500 MG Inj 100 ML @ 100 200 / 200 100 / 100 100 / 100 mls/hr IV.SIG Q8H [facility] Rx#: [id number] Tube Feeding 239 / 239 293 / 293 Output: Stool 100 / 100 50 / 50 Urine Amount (Catheter) 550 / 550 575 / 575 Indwelling Urethral Catheter 550 / 550 575 / 575 Other: Date of Last Bowel Movement 10/06/18 10/07/18 10/06/18 # Bowel Movements 3 # Incontinent Bowel Movements 2 10/04/18 15:00 Stool Enteric Pathogens (PCR) - Final No enteric pathogens detected by PCR (No Salmonella sp., Shigella sp., Campylobacter sp., Yersinia enterocolitica, Vibrio sp., Norovirus, or EHEC (Shiga Toxin 1 or Shiga Toxin 2) detected. 10/06/18 15:00 Sputum - Endotracheal Gram Stain - Final 10/06/18 15:00 Sputum - Endotracheal Sputum Culture - Preliminary Heavy growth normal respiratory edison at 24 hours 10/05/18 00:05 Blood - Peripheral Aerobic Blood Culture - Preliminary No growth in 2 days 10/05/18 00:05 Blood - Peripheral Anaerobic Blood Culture - Preliminary No growth in 2 days 10/05/18 00:00 Blood - Peripheral Aerobic Blood Culture - Preliminary No growth in 2 days 10/05/18 00:00 Blood - Peripheral Anaerobic Blood Culture - Preliminary No growth in 2 days 10/07/18 09:30 Urine - Catheterized Urine Legionella Antigen - Final Presumptive negative for Legionella pneumophila serogroup 1 antigen in urine, suggesting no recent or recurrent infection. Infection due to Legionella cannot be ruled out since other serogroups and species may cause disease, antigen may not be present in urine in early infection, and the level of antigen present in the urine may be below the detection limit of the test. 10/06/18 15:00 Stool Stool for WBCs - Pending Lab - Hematology Results 10/06/18 10/07/18 01:56 03:50 WBC 6.6 7.4 RBC 2.96 L 2.96 L Hgb 9.7 L 9.5 L Hct 28.9 L 29.5 L MCV 97.8 D 99.7 MCH 32.7 32.3 MCHC 33.5 32.4 RDW 15.3 15.8 Plt Count 106 L 108 L MPV 11.1 H 10.5 Neut % (Auto) 64.3 62.3 Lymph % (Auto) 21.7 22.3 Rooks % (Auto) 10.9 H 11.1 H Eos % (Auto) 2.5 3.3 Baso % (Auto) 0.6 1.0 Neut # (Auto) 4.3 4.6 Lymph # (Auto) 1.4 1.7 Rooks # (Auto) 0.7 0.8 Eos # (Auto) 0.2 0.2 Baso # (Auto) 0.0 0.1 WBC Differential . . Differential Comment Auto diff final Auto diff final Lab - Chemistry Results 10/05/18 10/05/18 10/05/18 17:21 18:00 20:50 Sodium 146 H Potassium 5.5 H 5.3 H Chloride 117 H Carbon Dioxide 24.0 Anion Gap 5 BUN 42 H Creatinine 1.76 H Estimated GFR 47 L POC Glucose 86 Random Glucose 81 Calcium 7.8 L Prot Corrected Calcium Phosphorus Magnesium Total Bilirubin AST ALT Alkaline Phosphatase B-Natriuretic Peptide Total Protein Albumin 10/06/18 10/06/18 10/06/18 01:56 01:56 08:01 Sodium 149 H Potassium 5.0 Chloride 118 H Carbon Dioxide 23.4 Anion Gap 8 BUN 40 H Creatinine 1.83 H Estimated GFR 45 L POC Glucose 82 Random Glucose 82 Calcium 7.5 L Prot Corrected Calcium Phosphorus 1.7 L Magnesium 1.8 Total Bilirubin 0.4 AST 11 L ALT 8 L Alkaline Phosphatase 72 B-Natriuretic Peptide 199 H Total Protein 5.5 L D Albumin 2.2 L 10/06/18 10/06/18 10/06/18 12:00 16:08 23:35 Sodium Potassium Chloride Carbon Dioxide Anion Gap BUN Creatinine Estimated GFR POC Glucose 93 106 108 Random Glucose Calcium Prot Corrected Calcium Phosphorus Magnesium Total Bilirubin AST ALT Alkaline Phosphatase B-Natriuretic Peptide Total Protein Albumin 10/07/18 10/07/18 10/07/18 03:50 03:50 06:31 Sodium 150 H Potassium 4.5 Chloride 118 H Carbon Dioxide 26.3 Anion Gap 6 BUN 32 H Creatinine 1.84 H Estimated GFR 45 L POC Glucose 92 Random Glucose 96 Calcium 7.4 L* Prot Corrected Calcium 8.3 L Phosphorus 2.2 L Magnesium 1.8 Total Bilirubin 0.4 AST 9 L ALT 6 L Alkaline Phosphatase 82 B-Natriuretic Peptide 347 H Total Protein 5.4 L Albumin 1.9 L 10/07/18 11:53 Sodium Potassium Chloride Carbon Dioxide Anion Gap BUN Creatinine Estimated GFR POC Glucose 95 Random Glucose Calcium Prot Corrected Calcium Phosphorus Magnesium Total Bilirubin AST ALT Alkaline Phosphatase B-Natriuretic Peptide Total Protein Albumin Imaging: ITS Impressions Abdomen/Pelvis CT 10/04/18 15:12 CONCLUSION: 1. Mild interstitial prominence and airspace disease in the left lung base. 2. Mildly enlarged adrenal glands which may be hyperplastic. 3. No evidence of inflammatory bowel disease, biliary obstructive disease, hydronephrosis, suspicious mass or lymphadenopathy. Chest X-Ray 10/07/18 06:00 CONCLUSION: Improving aeration Physical Exam: GENERAL: Patient is a morbidly obese, well-developed male, awakens easily, responding, on the vent, not in respiratory distress. SKIN: Warm and dry. No generalized rash. HEAD: Atraumatic. Normocephalic. No temporal wasting, or tenderness. EYES: Martha conjunctiva. No petechia or hemorrhage. No scleral icterus. No injection or drainage. Has some edema of the face EARS, NOSE AND THROAT: Nose without bleeding or purulent nasal discharge. He is orally intubated. NECK: Neck is short and obese, supple CARDIOVASCULAR: Regular rate and rhythm. No murmurs, rubs or gallops heard RESPIRATORY: Coarse breath sounds bilaterally, decreased at the bases. ABDOMEN: Soft, obese, mildly distended, no reaction to palpation. Bowel sounds hypoactive. EXTREMITIES: No clubbing, cyanosis. Has chronic skin changes in both LE, tree bark appearance of skin, with clean superficial ulcers, NEUROLOGICAL: Responding PSYCHIATRIC: Unable to assess. LINE: No evidence of infection Assessment and Plan - Plan Impression Sepsis on admission - source? - came in with abdominal pain and diarrhea, CT no evidence of colitis, had recent Abx for toe infection, ?C diff, ?other etiology gastroenteritis - bilateral infiltrates, likely CHF; did not have PNA symptoms on presentation; CXR better - UA ok - has leg ulcers, but look ok, has chronic LE edema Hypothermia Respiratory failure CHRISTAL, good UO Morbid obesity Recommendation Follow C/S On Vanco IV, Flagyl and Cefepime Stop PO Vanco since C diff negative Stop IV vanco Follow temps Monitor progress Weaning per CCM D/W RN
[2018-10-08] MEDS: Insulin NovoLIN Regular Correctional Sugar Inj SQ SCH ×4 (00:05→17:50)
[2018-10-08] MEDS ORDERED: Pharmacy Ordered Lab Info OTHER ONE (01:45)
[2018-10-08] MEDS: Chlorhexidine Gluconate 2% 1 Pack (2 Cloths) TOPICAL SCH (04:27)
[2018-10-08 05:27] LABS: Baso % (Auto) 0.6 % (0.0-2.0); Eos # (Auto) 0.3 th/mm3 (0.0-0.4); Eos % (Auto) 3.4 % (0.0-4.0); Hematocrit 29.2 % (39.0-51.0); Hemoglobin 9.3 gm/dL (13.0-17.0); Lymph # (Auto) 1.3 th/mm3 (1.0-4.8); Lymph % (Auto) 17.7 % (9.0-44.0); Mean Corpuscular HGB Conc 31.9 % (32.0-36.0); Mean Corpuscular Hemoglobin 32.1 pg (27.0-34.0); Mean Corpuscular Volume 100.7 fL (80.0-100.0); Mean Platelet Volume 10.6 fL (7.0-11.0); Mono # (Auto) 0.9 th/mm3 (0.0-0.9); Mono % (Auto) 12.1 % (0.0-8.0); Neut # (Auto) 4.9 th/mm3 (1.8-7.7); Neut % (Auto) 66.2 % (16.0-70.0); Platelet Count 108 th/mm3 (150-450); Red Cell Distribution Width 16.3 % (11.6-17.2); White Blood Count 7.4 th/mm3 (4.0-11.0)
[2018-10-08] MEDS: Heparin - SQ 10,000 UNITS/ML Vial SQ SCH ×3 (05:39→21:12)
[2018-10-08 05:56] LABS: Albumin 1.9 g/dL (3.4-5.0); Alkaline Phosphatase 83 U/L (45-117); Anion Gap 8 meq/L (5-15); Aspartate Aminotransferase 7 U/L (15-37); Blood Urea Nitrogen 30 mg/dL (7-18); Calcium 7.1 mg/dL (8.5-10.1); Carbon Dioxide 26.1 meq/L (21.0-32.0); Chloride 117 meq/L (98-107); Glomerular Filtration Rate 48 mL/min (>89); Glucose,Random 102 mg/dL (74-106); Magnesium 1.8 mg/dL (1.5-2.5); Phosphorus 3.7 mg/dL (2.5-4.9); Potassium 4.1 meq/L (3.5-5.1); Sodium 151 meq/L (136-145); Total Protein 5.4 g/dL (6.4-8.2)
[2018-10-08] MEDS: Propofol 1000 mg/100 ml Inj 1,000 MG/100 ML BOTTLE IV.CONT PRN (06:13)
[2018-10-08] MEDS: Famotidine PF Inj 20 MG/2 ML Vial IV.PUSH SCH ×2 (08:42→21:12)
[2018-10-08] MEDS: Budesonide-Formoterol 160/4.5 MCG 6 GM Inhaler INH SCH ×2 (08:43→21:01)
--- NOTE | 2018-10-08 10:22 | P.PNCC ---
Subjective Subjective Remarks/Hospital Course: 10/04: This is a 68-year-old morbidly obese -[place] male who presented to the emergency department for abdominal pain and diarrhea. CT abdomen pelvis at that time demonstrates probable colitis. Always in the emergency department he became more more somnolent as well as hypoxic. He was tried on BiPAP, but his PCO2 continued to rise. He was emergently intubated. In addition all this he has severe acute kidney injury with associated severe hyperkalemia with a potassium greater than 7 not responsive to initial medical management. On my evaluation he is intubated and sedated no new additional information is available from him. Chest x-ray demonstrates acute pulmonary edema. The patient responded to 200 mg of IV Lasix with improving potassium and so emergent dialysis was not required. Patient however does remain severely acidotic despite IV bicarbonate and a bicarbonate infusion was started. Review of systems is unobtainable. 10/05: Orally intubated on mechanical ventilation, sedated, arousable. Potassium 5.9 this morning. Additional Kayexalate ordered. Hypothermic requiring Mariaelena hugger. Check TSH which is within normal limits. Elevated blood pressure for which hydralazine as needed was ordered which helped. 10/06: Remains intubated heavily sedated for vent synchrony. Worsening hypoxia FiO2 increased to 60% PEEP to 10. Urine output improved with the diuresis. Borderline hypotensive placed on Archie-Synephrine briefly. I will increase cefepime to antipseudomonal dose. C. difficile and sputum cultures are pending at this time his bradycardia bring his heart rate up from 40s to 50s. 10/07: Remains critical but making some improvement. Chest x-ray shows interval improvement in bilateral infiltrates. Even on sedation patient able to wake up and follow commands. FiO2 reduced to 50% PEEP remains at 8. 10/08: Remains intubated currently off sedation last 1 hour. Remains very somnolent though tolerating CPAP. Urine output 2.6 L in 24 hours. Creatinine stable to slightly improved. FiO2 down to 40%. Objective Vital Signs / I&O: Vital Signs 10/07/18 11:00 10/07/18 12:00 10/07/18 12:04 Temperature 98.2 F 98.1 F Pulse Rate 78 77 Respiratory Rate 22 12 Blood Pressure Pulse Oximetry 97 95 93 L 10/07/18 12:57 10/07/18 13:00 10/07/18 14:00 Temperature 98.1 F 97.5 F L Pulse Rate 100 H 94 H Respiratory Rate 16 18 Blood Pressure Pulse Oximetry 91 L 91 L 93 L 10/07/18 15:00 10/07/18 15:39 10/07/18 16:00 Temperature 97.2 F L 96.3 F L Pulse Rate 84 83 81 Respiratory Rate 18 12 13 Blood Pressure Pulse Oximetry 91 L 94 L 94 L 10/07/18 17:00 10/07/18 18:00 10/07/18 19:00 Temperature 97.2 F L 96.8 F L 97.0 F L Pulse Rate 75 75 82 Respiratory Rate Blood Pressure Pulse Oximetry 94 L 92 L 97 10/07/18 20:00 10/07/18 20:14 10/07/18 21:00 Temperature 96.8 F L 96.6 F L Pulse Rate 80 82 68 Respiratory Rate 12 Blood Pressure Pulse Oximetry 95 94 L 96 10/07/18 22:00 10/07/18 23:00 10/08/18 00:00 Temperature 96.6 F L 96.8 F L 97.2 F L Pulse Rate 78 74 73 Respiratory Rate 12 Blood Pressure Pulse Oximetry 98 95 97 10/08/18 00:58 10/08/18 01:00 10/08/18 01:13 Temperature 97.5 F L 97.5 F L Pulse Rate 62 63 Respiratory Rate 12 Blood Pressure 101/53 L Pulse Oximetry 95 95 96 10/08/18 01:27 10/08/18 01:30 10/08/18 02:00 Temperature 97.5 F L 97.7 F 98.2 F Pulse Rate 58 L 57 L 65 Respiratory Rate Blood Pressure 96/54 L 97/52 L Pulse Oximetry 95 95 94 L 10/08/18 02:14 10/08/18 03:00 10/08/18 03:14 Temperature 98.2 F 98.1 F 97.9 F Pulse Rate 65 62 70 Respiratory Rate Blood Pressure 100/55 L 135/68 Pulse Oximetry 95 96 83 L 10/08/18 03:30 10/08/18 03:49 10/08/18 04:00 Temperature 97.7 F 97.5 F L Pulse Rate 69 83 64 Respiratory Rate 12 Blood Pressure 104/55 L 100/51 L Pulse Oximetry 96 96 98 10/08/18 04:08 10/08/18 04:30 10/08/18 05:00 Temperature 97.5 F L 97.7 F Pulse Rate 63 60 58 L Respiratory Rate Blood Pressure 100/52 L 103/53 L 117/56 L Pulse Oximetry 98 97 97 10/08/18 05:15 10/08/18 05:30 10/08/18 05:45 Temperature 97.7 F 97.9 F 98.1 F Pulse Rate 59 L 59 L 62 Respiratory Rate Blood Pressure 108/58 L 109/57 L 110/56 L Pulse Oximetry 97 97 97 10/08/18 06:00 10/08/18 06:15 10/08/18 06:30 Temperature 98.4 F 98.2 F 98.1 F Pulse Rate 66 68 67 Respiratory Rate 12 Blood Pressure 110/55 L 110/56 L 116/56 L Pulse Oximetry 95 95 95 10/08/18 06:45 10/08/18 07:00 10/08/18 07:15 Temperature 98.1 F 97.9 F 97.7 F Pulse Rate 65 63 62 Respiratory Rate Blood Pressure 115/55 L 115/58 L 110/55 L Pulse Oximetry 97 96 95 10/08/18 07:30 10/08/18 07:41 10/08/18 07:45 Temperature 97.5 F L 97.5 F L Pulse Rate 59 L 58 L Respiratory Rate 12 12 Blood Pressure 109/54 L 137/64 Pulse Oximetry 96 95 95 10/08/18 08:00 10/08/18 08:15 10/08/18 08:30 Temperature 97.3 F L 97.3 F L 97.3 F L Pulse Rate 69 73 77 Respiratory Rate Blood Pressure 114/56 L 119/58 L 115/56 L Pulse Oximetry 97 95 96 10/08/18 08:45 10/08/18 09:00 Temperature 97.2 F L 97.2 F L Pulse Rate 79 88 Respiratory Rate Blood Pressure 112/55 L 122/60 Pulse Oximetry 96 95 Intake & Output 10/07/18 10/08/18 10/08/18 18:59 06:59 18:59 Intake Total 1527 / 1527 1290 / 1290 100 / 100 Output Total 1875 / 1875 870 / 870 Balance -348 / -348 420 / 420 100 / 100 Weight 172.2 kg Intake: IV 1025 / 1025 850 / 850 100 / 100 Diprivan 1000 mg/100 ml Inj 1, 200 / 200 400 / 400 000 mg In 100 ml @ 5 MCG/KG/MIN 5.171 mls/hr IV.CONT TITRATE PRN Rx#:[id number] Maxipime Inj 1,000 MG In NS Inj 100 / 100 100 / 100 100 ML @ 200 mls/hr IV.SIG Q12H [facility] Rx#:[id number] Vancomycin Inj 2,500 MG In NS 525 / 525 Inj 500 ML @ 250 mls/hr IV.SIG ONCE ONE Rx#:[id number] fentaNYL 10 mcg/mL Premix Drip 250 / 250 2,500 mcg In 250 ml @ 50 MCG/HR 5 mls/hr IV.SIG TITRATE PRN Rx #:[id number] Flagyl 500 MG Inj 100 ML @ 100 200 / 200 100 / 100 100 / 100 mls/hr IV.SIG Q8H [facility] Rx#: [id number] Tube Feeding 502 / 502 390 / 390 Tube Irrigant 50 / 50 Output: Stool 50 / 50 20 / 20 Urine Amount (Catheter) 1824 / 5 850 / 850 Indwelling Urethral Catheter 1824 / 182 850 / 850 Other: Date of Last Bowel Movement 10/06/18 10/08/18 10/08/18 # Bowel Movements 3 # Incontinent Bowel Movements 2 Result Diagrams: 10/08/18 05:05 10/08/18 05:05 Objective Remarks: GENERAL: Morbidly obese middle-aged male, lying in bed, intubated, sedated, critically ill HEENT: Normocephalic. Atraumatic. Pupils equal, round, reactive. Orotracheally intubated NECK: Trachea is midline. JVD is unable to be assessed due to large neck circumference CHEST: PRVC, FiO2 40%, PEEP 8 equal chest rise. CARDIOVASCULAR: Bradycardic rate, regular rhythm. Normotensive at this time ABDOMEN: Soft, morbidly obese, nontender, nondistended. No guarding. MUSCULOSKELETAL: Pulses 2+. 2+ peripheral edema. Bilateral lower extremities have venous stasis changes as well as open ulcerations which are dressed. These are erythematous and indurated. NEUROLOGICAL: Off sedation remains somnolent encephalopathic, orally intubated. Withdraws x4. Following commands on lightening sedation Assessment and Plan - Assessment and Plan Plan: Assessment: 68yM with acute multiorgan dysfunction. Differential includes severe sepsis, Acute kidney injury is causing severe hyperkalemia which is now being controlled medically. He also has a significant acute volume overload component which is responding also to iv diuretics. Severe acidosis may be combination of acute renal failure as well as severe sepsis, also respiratory acidosis. He is critically ill in multiorgan failure, but stabilizing and slightly improving. Plan by systems: Neurologic: Acute metabolic encephalopathy Propofol and fentanyl for goal RASS -1 Frequent neurochecks Avoid long-acting sedatives Start daily sedation vacation Respiratory: Acute hypoxic and hypercarbic respiratory failure Acute severe pulmonary edema Probable pneumonia PRVC AC PEEP 8 FiO2 40%. Spontaneous breathing trials diuresis, Vent bundle, breathing treatments Head of bed elevated, Nebs Wean FiO2 for goal SPO2 greater than 90% See ID section for antibiotics Cardiovascular: Severe sepsis Acute congestive heart failure exacerbation Hypotension Forced diuresis. Arterial line will be discontinued today Levophed if needed to keep map above 65 2D echo done February 2018 showed ejection fraction 50% Renal: Severe acute kidney injury Hyperkalemia-improved Foster with urometer Q1 hour urine output checks Forced diuresis Hyperkalemia medically treated Strict intake output, monitor and replete electrolytes, follow BUN creatinine. FEN/GI: Severe acute intravascular volume overload Morbid obesity Severe life-threatening hyperkalemia-resolved Severe anion gap metabolic acidosis Diarrhea Orogastric tube in place. Tube feeds with Nepro. Status post 2 rounds of medical management for hyperkalemia: Calcium, D50, insulin, bicarbonate. Continue Kayexalate. Forced diuresis with loop diuretics, give 1 dose of Diamox today Serial potassium monitoring Serial ABGs Heme/ID: Diarrhea: ? gastroenteritis Bilateral lower extremity cellulitis Severe sepsis Probable pneumonia Vancomycin, Cefepime-changed to antipseudomonal dose Flagyl IV. C. difficile toxin returns-C. difficile negative discontinued p.o. vancomycin Sputum culture, follow-up blood culture Stool for enteric pathogens/ WBCs pending. ID Dr. Lawson Endocrine: SSI TSH WNL Prophylaxis: GI Prophylaxis PPI DVT Prophylaxis -- SCDs Subcu heparin Lines: 10/04 radial arterial line discontinued on 10/08/2018 This patient remains critically ill with one or more organ systems which are or may become a threat to life. I have spent in excess of 35 minutes discontinuously in the care and management of this patient. This time is exclusive of procedures, and includes, but is not limited to, evaluation of the patient, review of the medical record, discussions with family, consultants, nursing staff, or respiratory therapy, and documentation in the medical record.
[2018-10-08 11:44] LABS: ABG Base Excess -0.2 mmol/L (-2-2); ABG PCO2 62 mmHg (38-42); ABG PO2 64 mmHg (61-120)
--- NOTE | 2018-10-08 15:57 | P.PNID ---
Subjective Remarks: Patient is a 68-year-old morbidly obese male, presented to the hospital complaining of several day history of abdominal pain and diarrhea. There was no mention of any fever chills or sweats. CT of the abdomen and pelvis did not show any evidence of abnormality in the colon or bowel. His blood pressure is okay, but the patient was hypoxic and worsened respiratory ferrera and ended up getting intubated. He also has evidence of acute kidney injury and hyperkalemia. Patient has since developed significant hypothermia and currently on a warming blanket. He is sedated and intubated. His creatinine is a little bit better, but he remains acidotic and he is on a bicarb drip. Chest x-ray showing bilateral pulmonary infiltrates. Infectious disease consultation has been requested to assist with evaluation and treatment of his sepsis. Notes reviewed Did 3 hours CPAP - high pCO2 on ABG On the vent On sedation, but he wakes up and responding Offpressors Temps better C diff negative Sputum NF BC negative CXR better WBC ok Antibiotics: Cefepime IV Flagyl Past Medical History: CHF (congestive heart failure) COPD (chronic obstructive pulmonary disease) Diabetes mellitus HTN (hypertension) Lymphedema Pressure ulcer Sleep apnea History of carpal tunnel surgery of right wrist Allergies/Adverse Reactions: Allergies No Known Allergies Allergy (Verified 10/04/18 14:59) Objective Vital Signs 10/07/18 16:00 10/07/18 17:00 10/07/18 18:00 Temperature 96.3 F L 97.2 F L 96.8 F L Pulse Rate 81 75 75 Respiratory Rate 13 Blood Pressure Pulse Oximetry 94 L 94 L 92 L 10/07/18 19:00 10/07/18 20:00 10/07/18 20:14 Temperature 97.0 F L 96.8 F L Pulse Rate 82 80 82 Respiratory Rate 12 Blood Pressure Pulse Oximetry 97 95 94 L 10/07/18 21:00 10/07/18 22:00 10/07/18 23:00 Temperature 96.6 F L 96.6 F L 96.8 F L Pulse Rate 68 78 74 Respiratory Rate 12 Blood Pressure Pulse Oximetry 96 98 95 10/08/18 00:00 10/08/18 00:58 10/08/18 01:00 Temperature 97.2 F L 97.5 F L Pulse Rate 73 62 Respiratory Rate 12 Blood Pressure Pulse Oximetry 97 95 95 10/08/18 01:13 10/08/18 01:27 10/08/18 01:30 Temperature 97.5 F L 97.5 F L 97.7 F Pulse Rate 63 58 L 57 L Respiratory Rate Blood Pressure 101/53 L 96/54 L 97/52 L Pulse Oximetry 96 95 95 10/08/18 02:00 10/08/18 02:14 10/08/18 03:00 Temperature 98.2 F 98.2 F 98.1 F Pulse Rate 65 65 62 Respiratory Rate Blood Pressure 100/55 L Pulse Oximetry 94 L 95 96 10/08/18 03:14 10/08/18 03:30 10/08/18 03:49 Temperature 97.9 F 97.7 F Pulse Rate 70 69 83 Respiratory Rate 12 Blood Pressure 135/68 104/55 L Pulse Oximetry 83 L 96 96 10/08/18 04:00 10/08/18 04:08 10/08/18 04:30 Temperature 97.5 F L 97.5 F L Pulse Rate 64 63 60 Respiratory Rate Blood Pressure 100/51 L 100/52 L 103/53 L Pulse Oximetry 98 98 97 10/08/18 05:00 10/08/18 05:15 10/08/18 05:30 Temperature 97.7 F 97.7 F 97.9 F Pulse Rate 58 L 59 L 59 L Respiratory Rate Blood Pressure 117/56 L 108/58 L 109/57 L Pulse Oximetry 97 97 97 10/08/18 05:45 10/08/18 06:00 10/08/18 06:15 Temperature 98.1 F 98.4 F 98.2 F Pulse Rate 62 66 68 Respiratory Rate 12 Blood Pressure 110/56 L 110/55 L 110/56 L Pulse Oximetry 97 95 95 10/08/18 06:30 10/08/18 06:45 10/08/18 07:00 Temperature 98.1 F 98.1 F 97.9 F Pulse Rate 67 65 63 Respiratory Rate Blood Pressure 116/56 L 115/55 L 115/58 L Pulse Oximetry 95 97 96 10/08/18 07:15 10/08/18 07:30 10/08/18 07:41 Temperature 97.7 F 97.5 F L Pulse Rate 62 59 L Respiratory Rate 12 Blood Pressure 110/55 L 109/54 L Pulse Oximetry 95 96 95 10/08/18 07:45 10/08/18 08:00 10/08/18 08:15 Temperature 97.5 F L 97.3 F L 97.3 F L Pulse Rate 58 L 69 73 Respiratory Rate 12 Blood Pressure 137/64 114/56 L 119/58 L Pulse Oximetry 95 97 95 10/08/18 08:30 10/08/18 08:45 10/08/18 09:00 Temperature 97.3 F L 97.2 F L 97.2 F L Pulse Rate 77 79 88 Respiratory Rate Blood Pressure 115/56 L 112/55 L 122/60 Pulse Oximetry 96 96 95 10/08/18 09:15 10/08/18 09:30 10/08/18 09:45 Temperature 97.0 F L 97.0 F L 96.8 F L Pulse Rate 83 81 78 Respiratory Rate Blood Pressure 116/59 L 117/58 L 117/58 L Pulse Oximetry 93 L 90 L 90 L 10/08/18 10:00 10/08/18 10:15 10/08/18 10:30 Temperature 96.8 F L 96.8 F L 96.8 F L Pulse Rate 91 H 85 82 Respiratory Rate Blood Pressure 125/58 L 116/57 L 112/57 L Pulse Oximetry 90 L 90 L 10/08/18 10:45 10/08/18 11:00 10/08/18 11:07 Temperature 96.8 F L 96.8 F L Pulse Rate 79 80 Respiratory Rate 12 16 Blood Pressure 113/57 L 108/58 L Pulse Oximetry 92 L 94 L 93 L 10/08/18 11:15 10/08/18 11:30 10/08/18 11:45 Temperature 96.8 F L 97.0 F L 97.2 F L Pulse Rate 75 78 76 Respiratory Rate Blood Pressure 109/59 L 107/59 L 105/56 L Pulse Oximetry 93 L 93 L 93 L 10/08/18 12:00 10/08/18 12:15 10/08/18 12:30 Temperature 97.2 F L 97.3 F L 97.3 F L Pulse Rate 73 69 67 Respiratory Rate Blood Pressure 104/57 L 105/58 L 101/56 L Pulse Oximetry 95 95 95 10/08/18 12:45 10/08/18 13:00 10/08/18 13:15 Temperature 97.3 F L 97.5 F L 97.7 F Pulse Rate 65 67 67 Respiratory Rate 12 Blood Pressure 99/56 L 110/57 L 103/57 L Pulse Oximetry 95 96 95 10/08/18 13:30 10/08/18 13:45 10/08/18 14:00 Temperature 97.7 F 97.9 F 97.9 F Pulse Rate 64 62 67 Respiratory Rate Blood Pressure 103/56 L 102/58 L 103/58 L Pulse Oximetry 95 96 95 10/08/18 14:15 10/08/18 14:30 10/08/18 14:45 Temperature 98.1 F 98.1 F 98.1 F Pulse Rate 66 68 68 Respiratory Rate Blood Pressure 104/59 L 105/59 L 107/58 L Pulse Oximetry 96 95 95 10/08/18 15:00 10/08/18 15:42 Temperature 98.1 F Pulse Rate 68 68 Respiratory Rate 12 Blood Pressure 104/56 L Pulse Oximetry 94 L 99 Intake & Output 10/07/18 10/08/18 10/08/18 18:59 06:59 18:59 Intake Total 1527 / 1527 1290 / 1290 200 / 200 Output Total 1875 / 1875 870 / 870 Balance -348 / -348 420 / 420 200 / 200 Weight 172.2 kg Intake: IV 1025 / 1025 850 / 850 200 / 200 Diprivan 1000 mg/100 ml Inj 1, 200 / 200 400 / 400 000 mg In 100 ml @ 5 MCG/KG/MIN 5.171 mls/hr IV.CONT TITRATE PRN Rx#:[id number] Maxipime Inj 1,000 MG In NS Inj 100 / 100 100 / 100 100 ML @ 200 mls/hr IV.SIG Q12H [facility] Rx#:[id number] Vancomycin Inj 2,500 MG In NS 525 / 525 Inj 500 ML @ 250 mls/hr IV.SIG ONCE ONE Rx#:[id number] fentaNYL 10 mcg/mL Premix Drip 250 / 250 2,500 mcg In 250 ml @ 50 MCG/HR 5 mls/hr IV.SIG TITRATE PRN Rx #:[id number] Flagyl 500 MG Inj 100 ML @ 100 200 / 200 100 / 100 200 / 200 mls/hr IV.SIG Q8H [facility] Rx#: [id number] Tube Feeding 502 / 502 390 / 390 Tube Irrigant 50 / 50 Output: Stool 50 / 50 20 / 20 Urine Amount (Catheter) 1824 850 / 850 Indwelling Urethral Catheter 1824 850 / 850 Other: Date of Last Bowel Movement 10/06/18 10/08/18 10/08/18 # Bowel Movements 3 # Incontinent Bowel Movements 2 10/06/18 15:00 Sputum - Endotracheal Gram Stain - Final 10/06/18 15:00 Sputum - Endotracheal Sputum Culture - Final Heavy growth normal respiratory edison 10/06/18 15:00 Stool Stool for WBCs - Final No WBC's seen 10/05/18 00:05 Blood - Peripheral Aerobic Blood Culture - Preliminary No growth in 3 days 10/05/18 00:05 Blood - Peripheral Anaerobic Blood Culture - Preliminary No growth in 3 days 10/05/18 00:00 Blood - Peripheral Aerobic Blood Culture - Preliminary No growth in 3 days 10/05/18 00:00 Blood - Peripheral Anaerobic Blood Culture - Preliminary No growth in 3 days 10/04/18 15:00 Stool Enteric Pathogens (PCR) - Final No enteric pathogens detected by PCR (No Salmonella sp., Shigella sp., Campylobacter sp., Yersinia enterocolitica, Vibrio sp., Norovirus, or EHEC (Shiga Toxin 1 or Shiga Toxin 2) detected. 10/07/18 09:30 Urine - Catheterized Urine Legionella Antigen - Final Presumptive negative for Legionella pneumophila serogroup 1 antigen in urine, suggesting no recent or recurrent infection. Infection due to Legionella cannot be ruled out since other serogroups and species may cause disease, antigen may not be present in urine in early infection, and the level of antigen present in the urine may be below the detection limit of the test. Lab - Hematology Results 10/07/18 10/08/18 03:50 05:05 WBC 7.4 7.4 RBC 2.96 L 2.90 L Hgb 9.5 L 9.3 L Hct 29.5 L 29.2 L MCV 99.7 100.7 H MCH 32.3 32.1 MCHC 32.4 31.9 L RDW 15.8 16.3 Plt Count 108 L 108 L MPV 10.5 10.6 Neut % (Auto) 62.3 66.2 Lymph % (Auto) 22.3 17.7 Spink % (Auto) 11.1 H 12.1 H Eos % (Auto) 3.3 3.4 Baso % (Auto) 1.0 0.6 Neut # (Auto) 4.6 4.9 Lymph # (Auto) 1.7 1.3 Spink # (Auto) 0.8 0.9 Eos # (Auto) 0.2 0.3 Baso # (Auto) 0.1 0.0 WBC Differential . . Differential Comment Auto diff final Auto diff final Lab - Chemistry Results 10/06/18 10/06/18 10/07/18 16:08 23:35 03:50 Sodium 150 H Potassium 4.5 Chloride 118 H Carbon Dioxide 26.3 Anion Gap 6 BUN 32 H Creatinine 1.84 H Estimated GFR 45 L POC Glucose 106 108 Random Glucose 96 Calcium 7.4 L* Prot Corrected Calcium 8.3 L Phosphorus 2.2 L Magnesium 1.8 Total Bilirubin 0.4 AST 9 L ALT 6 L Alkaline Phosphatase 82 B-Natriuretic Peptide Total Protein 5.4 L Albumin 1.9 L 10/07/18 10/07/18 10/07/18 03:50 06:31 11:53 Sodium Potassium Chloride Carbon Dioxide Anion Gap BUN Creatinine Estimated GFR POC Glucose 92 95 Random Glucose Calcium Prot Corrected Calcium Phosphorus Magnesium Total Bilirubin AST ALT Alkaline Phosphatase B-Natriuretic Peptide 347 H Total Protein Albumin 10/07/18 10/07/18 10/08/18 17:02 23:56 05:05 Sodium 151 H Potassium 4.1 Chloride 117 H Carbon Dioxide 26.1 Anion Gap 8 BUN 30 H Creatinine 1.72 H Estimated GFR 48 L POC Glucose 100 100 Random Glucose 102 Calcium 7.1 L* Prot Corrected Calcium 8.0 L Phosphorus 3.7 D Magnesium 1.8 Total Bilirubin 0.4 AST 7 L ALT Less than 6 L Alkaline Phosphatase 83 B-Natriuretic Peptide Total Protein 5.4 L Albumin 1.9 L 10/08/18 10/08/18 05:33 11:26 Sodium Potassium Chloride Carbon Dioxide Anion Gap BUN Creatinine Estimated GFR POC Glucose 100 96 Random Glucose Calcium Prot Corrected Calcium Phosphorus Magnesium Total Bilirubin AST ALT Alkaline Phosphatase B-Natriuretic Peptide Total Protein Albumin Imaging: ITS Impressions Abdomen/Pelvis CT 10/04/18 15:12 CONCLUSION: 1. Mild interstitial prominence and airspace disease in the left lung base. 2. Mildly enlarged adrenal glands which may be hyperplastic. 3. No evidence of inflammatory bowel disease, biliary obstructive disease, hydronephrosis, suspicious mass or lymphadenopathy. Chest X-Ray 10/07/18 06:00 CONCLUSION: Improving aeration Physical Exam: GENERAL: awakens easily, responding, on the vent, not in respiratory distress. SKIN: Warm and dry. No generalized rash. EYES: [place] conjunctiva. No petechia or hemorrhage. No scleral icterus. No injection or drainage. Has some edema of the face EARS, NOSE AND THROAT: Nose without bleeding or purulent nasal discharge. He is orally intubated. NECK: Neck is short and obese, supple CARDIOVASCULAR: Regular rate and rhythm. No murmurs, rubs or gallops heard RESPIRATORY: Coarse breath sounds bilaterally, decreased at the bases. ABDOMEN: Soft, obese, mildly distended, no reaction to palpation. Bowel sounds hypoactive. EXTREMITIES: No clubbing, cyanosis. Has chronic skin changes in both LE, tree bark appearance of skin, with clean superficial ulcers, NEUROLOGICAL: Responding PSYCHIATRIC: Unable to assess. LINE: No evidence of infection Assessment and Plan - Plan Impression Sepsis on admission - source? - came in with abdominal pain and diarrhea, CT no evidence of colitis, had recent Abx for toe infection, ?C diff, ?other etiology gastroenteritis - bilateral infiltrates, likely CHF; did not have PNA symptoms on presentation; CXR better - UA ok - has leg ulcers, but look ok, has chronic LE edema Hypothermia Respiratory failure CHRISTAL, good UO Morbid obesity Recommendation Follow C/S Continue Flagyl and Cefepime Follow temps Monitor progress Weaning per CCM
[2018-10-09] MEDS: Insulin NovoLIN Regular Correctional Sugar Inj SQ SCH ×4 (00:08→18:10)
[2018-10-09] MEDS: Chlorhexidine Gluconate 2% 1 Pack (2 Cloths) TOPICAL SCH (03:07)
[2018-10-09 05:00] LABS: Baso # (Auto) 0.1 th/mm3 (0.0-0.2); Baso % (Auto) 0.6 % (0.0-2.0); Eos # (Auto) 0.3 th/mm3 (0.0-0.4); Eos % (Auto) 3.2 % (0.0-4.0); Hematocrit 32.3 % (39.0-51.0); Hemoglobin 10.3 gm/dL (13.0-17.0); Lymph # (Auto) 1.5 th/mm3 (1.0-4.8); Lymph % (Auto) 18.6 % (9.0-44.0); Mean Corpuscular Hemoglobin 32.2 pg (27.0-34.0); Mean Corpuscular Volume 100.6 fL (80.0-100.0); Mean Platelet Volume 10.8 fL (7.0-11.0); Mono # (Auto) 0.9 th/mm3 (0.0-0.9); Mono % (Auto) 11.5 % (0.0-8.0); Neut # (Auto) 5.4 th/mm3 (1.8-7.7); Neut % (Auto) 66.1 % (16.0-70.0); Platelet Count 113 th/mm3 (150-450); Red Blood Count 3.21 mil/mm3 (4.50-5.90); White Blood Count 8.2 th/mm3 (4.0-11.0)
[2018-10-09 05:23] LABS: Anion Gap 6 meq/L (5-15); Aspartate Aminotransferase 11 U/L (15-37); Blood Urea Nitrogen 28 mg/dL (7-18); Calcium 7.4 mg/dL (8.5-10.1); Chloride 119 meq/L (98-107); Glomerular Filtration Rate 46 mL/min (>89); Glucose,Random 103 mg/dL (74-106); Potassium 4.3 meq/L (3.5-5.1); Sodium 153 meq/L (136-145)
[2018-10-09 05:27] LABS: Alkaline Phosphatase 85 U/L (45-117); Phosphorus 3.6 mg/dL (2.5-4.9); Total Protein 5.9 g/dL (6.4-8.2)
[2018-10-09] MEDS: Heparin - SQ 10,000 UNITS/ML Vial SQ SCH ×3 (05:27→21:29)
[2018-10-09] MEDS: Famotidine PF Inj 20 MG/2 ML Vial IV.PUSH SCH ×2 (09:51→21:29)
[2018-10-09] MEDS: Budesonide-Formoterol 160/4.5 MCG 6 GM Inhaler INH SCH ×2 (09:52→21:29)
--- NOTE | 2018-10-09 13:22 | P.PNCC ---
Subjective Subjective Remarks/Hospital Course: 10/04: This is a 68-year-old morbidly obese -[place] male who presented to the emergency department for abdominal pain and diarrhea. CT abdomen pelvis at that time demonstrates probable colitis. Always in the emergency department he became more more somnolent as well as hypoxic. He was tried on BiPAP, but his PCO2 continued to rise. He was emergently intubated. In addition all this he has severe acute kidney injury with associated severe hyperkalemia with a potassium greater than 7 not responsive to initial medical management. On my evaluation he is intubated and sedated no new additional information is available from him. Chest x-ray demonstrates acute pulmonary edema. The patient responded to 200 mg of IV Lasix with improving potassium and so emergent dialysis was not required. Patient however does remain severely acidotic despite IV bicarbonate and a bicarbonate infusion was started. Review of systems is unobtainable. 10/05: Orally intubated on mechanical ventilation, sedated, arousable. Potassium 5.9 this morning. Additional Kayexalate ordered. Hypothermic requiring Mariaelena hugger. Check TSH which is within normal limits. Elevated blood pressure for which hydralazine as needed was ordered which helped. 10/06: Remains intubated heavily sedated for vent synchrony. Worsening hypoxia FiO2 increased to 60% PEEP to 10. Urine output improved with the diuresis. Borderline hypotensive placed on Archie-Synephrine briefly. I will increase cefepime to antipseudomonal dose. C. difficile and sputum cultures are pending at this time his bradycardia bring his heart rate up from 40s to 50s. 10/07: Remains critical but making some improvement. Chest x-ray shows interval improvement in bilateral infiltrates. Even on sedation patient able to wake up and follow commands. FiO2 reduced to 50% PEEP remains at 8. 10/08: Remains intubated currently off sedation last 1 hour. Remains very somnolent though tolerating CPAP. Urine output 2.6 L in 24 hours. Creatinine stable to slightly improved. FiO2 down to 40%. 10/09: Remains intubated off all sedation. Yesterday failed CPAP secondary to hypercapnia. Today appears more awake tolerating 15 oh rate CPAP. Urine output more than 2.5 L with diuresis. Additional 60 mg IV Lasix ordered for today. Chest x-ray is pending Objective Vital Signs / I&O: Vital Signs 10/08/18 13:30 10/08/18 13:45 10/08/18 14:00 Temperature 97.7 F 97.9 F 97.9 F Pulse Rate 64 62 67 Respiratory Rate Blood Pressure 103/56 L 102/58 L 103/58 L Pulse Oximetry 95 96 95 10/08/18 14:15 10/08/18 14:30 10/08/18 14:45 Temperature 98.1 F 98.1 F 98.1 F Pulse Rate 66 68 68 Respiratory Rate Blood Pressure 104/59 L 105/59 L 107/58 L Pulse Oximetry 96 95 95 10/08/18 15:00 10/08/18 15:15 10/08/18 15:30 Temperature 98.1 F 98.2 F 98.2 F Pulse Rate 68 70 72 Respiratory Rate Blood Pressure 104/56 L 110/59 L 111/58 L Pulse Oximetry 94 L 95 95 10/08/18 15:42 10/08/18 15:45 10/08/18 16:00 Temperature 98.2 F 98.1 F Pulse Rate 68 69 68 Respiratory Rate 12 13 Blood Pressure 119/56 L 109/55 L Pulse Oximetry 99 100 98 10/08/18 16:15 10/08/18 16:30 10/08/18 16:45 Temperature 98.2 F 98.2 F 98.2 F Pulse Rate 80 84 76 Respiratory Rate Blood Pressure 103/53 L 111/57 L 101/55 L Pulse Oximetry 95 95 95 10/08/18 17:00 10/08/18 17:15 10/08/18 17:30 Temperature 98.2 F 98.4 F 98.4 F Pulse Rate 98 H 79 73 Respiratory Rate Blood Pressure 144/69 H 119/58 L 109/54 L Pulse Oximetry 96 95 94 L 10/08/18 17:45 10/08/18 18:00 10/08/18 18:15 Temperature 98.6 F 98.6 F 98.6 F Pulse Rate 75 81 74 Respiratory Rate Blood Pressure 114/58 L 114/59 L 109/59 L Pulse Oximetry 94 L 97 95 10/08/18 19:00 10/08/18 19:15 10/08/18 19:30 Temperature 98.4 F 98.2 F 98.2 F Pulse Rate 103 H 84 81 Respiratory Rate 12 Blood Pressure 132/64 112/57 L 113/57 L Pulse Oximetry 96 96 95 10/08/18 19:45 10/08/18 19:48 10/08/18 20:00 Temperature 97.7 F 98.4 F Pulse Rate 76 75 74 Respiratory Rate 12 12 Blood Pressure 114/55 L 111/55 L Pulse Oximetry 97 97 97 10/08/18 20:15 10/08/18 20:30 10/08/18 20:45 Temperature 98.1 F 98.1 F 97.9 F Pulse Rate 74 80 86 Respiratory Rate 12 Blood Pressure 111/57 L 109/55 L 119/58 L Pulse Oximetry 98 100 99 10/08/18 21:00 10/08/18 22:00 10/08/18 22:03 Temperature 97.9 F 98.2 F 98.2 F Pulse Rate 78 73 74 Respiratory Rate 12 Blood Pressure 115/55 L 117/57 L Pulse Oximetry 98 95 95 10/08/18 22:33 10/08/18 23:00 10/08/18 23:03 Temperature 97.7 F 97.7 F Pulse Rate 96 H 71 70 Respiratory Rate Blood Pressure 120/58 L 126/59 L 126/59 L Pulse Oximetry 94 L 97 96 10/08/18 23:28 10/08/18 23:33 10/09/18 00:00 Temperature 97.7 F Pulse Rate 74 68 Respiratory Rate 12 Blood Pressure 112/58 L Pulse Oximetry 96 98 97 10/09/18 00:03 10/09/18 01:00 10/09/18 01:03 Temperature 97.9 F 97.9 F Pulse Rate 69 65 64 Respiratory Rate 12 Blood Pressure 128/68 107/59 L Pulse Oximetry 97 95 95 10/09/18 01:33 10/09/18 02:00 10/09/18 02:03 Temperature 98.2 F Pulse Rate 69 69 69 Respiratory Rate 13 Blood Pressure 118/58 L 111/58 L Pulse Oximetry 94 L 95 95 10/09/18 02:33 10/09/18 03:00 10/09/18 03:03 Temperature 98.6 F Pulse Rate 67 64 63 Respiratory Rate 12 Blood Pressure 111/59 L 110/59 L Pulse Oximetry 96 95 94 L 10/09/18 03:33 10/09/18 03:52 10/09/18 04:00 Temperature 98.4 F Pulse Rate 80 66 65 Respiratory Rate 12 12 Blood Pressure 136/65 Pulse Oximetry 97 96 98 10/09/18 05:00 10/09/18 05:30 10/09/18 05:33 Temperature 98.1 F 97.7 F 97.9 F Pulse Rate 74 76 74 Respiratory Rate 12 Blood Pressure 101/57 L 103/56 L Pulse Oximetry 96 95 95 10/09/18 06:00 10/09/18 06:03 10/09/18 07:00 Temperature 97.9 F 97.9 F 97.7 F Pulse Rate 74 70 63 Respiratory Rate Blood Pressure 107/56 L 109/58 L Pulse Oximetry 97 96 96 10/09/18 07:33 10/09/18 08:00 10/09/18 08:20 Temperature 98.2 F 98.6 F Pulse Rate 64 65 Respiratory Rate 12 18 Blood Pressure 112/56 L 110/56 L Pulse Oximetry 95 95 97 10/09/18 08:33 10/09/18 09:00 10/09/18 09:33 Temperature 98.8 F 98.4 F 98.6 F Pulse Rate 84 81 80 Respiratory Rate 15 10 L 10 L Blood Pressure 114/55 L 110/61 156/70 H Pulse Oximetry 100 98 100 10/09/18 10:00 10/09/18 10:33 Temperature 98.8 F 98.6 F Pulse Rate 76 70 Respiratory Rate 11 L 11 L Blood Pressure 116/61 119/58 L Pulse Oximetry 97 96 Intake & Output 10/08/18 10/09/18 10/09/18 18:59 06:59 18:59 Intake Total 623 / 623 706 / 706 100 / 100 Output Total 1650 / 1650 600 / 600 Balance -1027 / -1027 106 / 106 100 / 100 Weight 170.8 kg Intake: IV 300 / 300 200 / 200 100 / 100 Maxipime Inj 1,000 MG In NS Inj 100 / 100 100 / 100 100 ML @ 200 mls/hr IV.SIG Q12H [facility] Rx#:[id number] Flagyl 500 MG Inj 100 ML @ 100 200 / 200 100 / 100 100 / 100 mls/hr IV.SIG Q8H [facility] Rx#: [id number] Tube Feeding 323 / 323 456 / 456 Tube Irrigant 50 / 50 Output: Stool 0 / 0 Urine Amount (Catheter) 1650 / 1650 600 / 600 Indwelling Urethral Catheter 1650 / 1650 600 / 600 Other: Date of Last Bowel Movement 10/08/18 10/08/18 10/08/18 Result Diagrams: 10/09/18 04:21 10/09/18 04:21 Objective Remarks: GENERAL: Morbidly obese middle-aged male, lying in bed, intubated, sedated, critically ill HEENT: Normocephalic. Atraumatic. Pupils equal, round, reactive. Orotracheally intubated NECK: Trachea is midline. JVD is unable to be assessed due to large neck circumference CHEST: PRVC, FiO2 40%, PEEP 8 equal chest rise. CARDIOVASCULAR: Bradycardic rate, regular rhythm. Normotensive at this time ABDOMEN: Soft, morbidly obese, nontender, nondistended. No guarding. MUSCULOSKELETAL: Pulses 2+. 2+ peripheral edema. Bilateral lower extremities have venous stasis changes as well as open ulcerations which are dressed. These are erythematous and indurated. NEUROLOGICAL: Off sedation remains somnolent encephalopathic, orally intubated. Withdraws x4. Following commands Assessment and Plan - Assessment and Plan Plan: Assessment: 68yM with acute multiorgan dysfunction. Differential includes severe sepsis, Acute kidney injury is causing severe hyperkalemia which is now being controlled medically. He also has a significant acute volume overload component which is responding also to iv diuretics. Severe acidosis may be combination of acute renal failure as well as severe sepsis, also respiratory acidosis. He is critically ill in multiorgan failure, but stabilizing and slightly improving. Plan by systems: Neurologic: Acute metabolic encephalopathy Discontinue all sedating medication Frequent neurochecks Avoid long-acting sedatives Respiratory: Acute hypoxic and hypercarbic respiratory failure Acute severe pulmonary edema Probable pneumonia PRVC AC PEEP 8 FiO2 40%. Spontaneous breathing trials, and assess for extubation diuresis, Vent bundle, breathing treatments Head of bed elevated, Nebs Wean FiO2 for goal SPO2 greater than 90% See ID section for antibiotics Cardiovascular: Severe sepsis Acute congestive heart failure exacerbation Hypotension Forced diuresis. Arterial line discontinued 2D echo done February 2018 showed ejection fraction 50% IV Lasix 60 mg x1, IV Diamox 500 mg x1 Renal: Severe acute kidney injury Hyperkalemia-improved Foster with urometer. Q1 hour urine output checks Forced diuresis with IV Lasix 60 mg x1, IV Diamox 500 mg x1 Hyperkalemia medically treated Strict intake output, monitor and replete electrolytes, follow BUN creatinine. FEN/GI: Severe acute intravascular volume overload Morbid obesity Severe life-threatening hyperkalemia-resolved Severe anion gap metabolic acidosis Diarrhea Orogastric tube in place. Tube feeds with Nepro. Status post 2 rounds of medical management for hyperkalemia: Calcium, D50, insulin, bicarbonate. Continue Kayexalate. Forced diuresis with loop diuretics, give 1 dose of Diamox today Serial potassium monitoring Serial ABGs Heme/ID: Diarrhea: ? gastroenteritis Bilateral lower extremity cellulitis Severe sepsis Probable pneumonia Vancomycin, Cefepime-changed to antipseudomonal dose Flagyl IV. C. difficile toxin returns-C. difficile negative Sputum culture, follow-up blood culture Stool for enteric pathogens/ WBCs pending. ID Dr. Lawson Endocrine: SSI TSH WNL Prophylaxis: GI Prophylaxis PPI DVT Prophylaxis -- SCDs Subcu heparin Lines: 10/04 radial arterial line discontinued on 10/08/2018 Level 3
--- NOTE | 2018-10-09 13:39 | XR ---
EXAM DATE: 10/09/2018 1:36 PM EST AGE/SEX: 68 years / Male INDICATIONS: Respiratory disease. CLINICAL DATA: This is the patient's subsequent encounter. Patient reports that signs and symptoms h ave been present for 1 week and indicates a pain score of Nonresponsive. MEDICAL/SURGICAL HISTORY: . Congestive heart failure. Chronic obstructive pulmonary disease. Di abetes. Hypertension. Smoker. None. [place]: [facility] [place] 10[place]. . FINDINGS: Mild patchy infiltrate again seen of the left mid and lower lung, not significantly changed given dif ferences in technique. Small left pleural effusion likely as well. No pneumothorax. Mild cardiomegaly is stable. Endotracheal tube tip is approximately 3 cm above the jeremias. There is a nasogastric tube coursing in to the stomach. CONCLUSION: No significant change patchy parenchymal opacities with small effusion on the left. Electronically signed by: Armond Roman MD 10/09/2018 1:38 PM EST
[2018-10-09 14:53] LABS: ABG Base Excess 1.7 mmol/L (-2-2); ABG PCO2 56 mmHg (38-42); ABG PO2 71 mmHg (61-120)
[2018-10-10] MEDS: Insulin NovoLIN Regular Correctional Sugar Inj SQ SCH ×5 (00:35→20:55)
[2018-10-10] MEDS: hydrALAZINE HCl Inj 20 MG/ML Vial IV.PUSH PRN (03:52)
[2018-10-10 05:38] LABS: Baso % (Auto) 0.7 % (0.0-2.0); Eos # (Auto) 0.3 th/mm3 (0.0-0.4); Eos % (Auto) 3.7 % (0.0-4.0); Hemoglobin 9.9 gm/dL (13.0-17.0); Lymph # (Auto) 1.5 th/mm3 (1.0-4.8); Lymph % (Auto) 21.1 % (9.0-44.0); Mean Corpuscular Volume 103.6 fL (80.0-100.0); Mean Platelet Volume 10.5 fL (7.0-11.0); Mono # (Auto) 0.9 th/mm3 (0.0-0.9); Mono % (Auto) 12.7 % (0.0-8.0); Neut # (Auto) 4.4 th/mm3 (1.8-7.7); Neut % (Auto) 61.8 % (16.0-70.0); Platelet Count 111 th/mm3 (150-450); Red Blood Count 3.09 mil/mm3 (4.50-5.90); Red Cell Distribution Width 16.5 % (11.6-17.2); White Blood Count 7.2 th/mm3 (4.0-11.0)
[2018-10-10 05:46] LABS: Mean Corpuscular HGB Conc 30.9 % (32.0-36.0)
[2018-10-10 05:54] LABS: Alkaline Phosphatase 77 U/L (45-117); Phosphorus 3.1 mg/dL (2.5-4.9)
[2018-10-10 05:56] LABS: Albumin 1.9 g/dL (3.4-5.0); Anion Gap 7 meq/L (5-15); Aspartate Aminotransferase 16 U/L (15-37); Blood Urea Nitrogen 26 mg/dL (7-18); Calcium 7.6 mg/dL (8.5-10.1); Carbon Dioxide 27.9 meq/L (21.0-32.0); Chloride 119 meq/L (98-107); Glomerular Filtration Rate 48 mL/min (>89); Glucose,Random 84 mg/dL (74-106); Sodium 154 meq/L (136-145)
[2018-10-10] MEDS: Heparin - SQ 10,000 UNITS/ML Vial SQ SCH ×3 (06:13→21:22)
[2018-10-10] MEDS: Budesonide-Formoterol 160/4.5 MCG 6 GM Inhaler INH SCH ×2 (09:52→21:23)
[2018-10-10] MEDS: Famotidine PF Inj 20 MG/2 ML Vial IV.PUSH SCH (09:52)
--- NOTE | 2018-10-10 10:27 | P.PNCC ---
Subjective Subjective Remarks/Hospital Course: 10/04: This is a 68-year-old morbidly obese -[place] male who presented to the emergency department for abdominal pain and diarrhea. CT abdomen pelvis at that time demonstrates probable colitis. Always in the emergency department he became more more somnolent as well as hypoxic. He was tried on BiPAP, but his PCO2 continued to rise. He was emergently intubated. In addition all this he has severe acute kidney injury with associated severe hyperkalemia with a potassium greater than 7 not responsive to initial medical management. On my evaluation he is intubated and sedated no new additional information is available from him. Chest x-ray demonstrates acute pulmonary edema. The patient responded to 200 mg of IV Lasix with improving potassium and so emergent dialysis was not required. Patient however does remain severely acidotic despite IV bicarbonate and a bicarbonate infusion was started. Review of systems is unobtainable. 10/05: Orally intubated on mechanical ventilation, sedated, arousable. Potassium 5.9 this morning. Additional Kayexalate ordered. Hypothermic requiring Mariaelena hugger. Check TSH which is within normal limits. Elevated blood pressure for which hydralazine as needed was ordered which helped. 10/06: Remains intubated heavily sedated for vent synchrony. Worsening hypoxia FiO2 increased to 60% PEEP to 10. Urine output improved with the diuresis. Borderline hypotensive placed on Archie-Synephrine briefly. I will increase cefepime to antipseudomonal dose. C. difficile and sputum cultures are pending at this time his bradycardia bring his heart rate up from 40s to 50s. 10/07: Remains critical but making some improvement. Chest x-ray shows interval improvement in bilateral infiltrates. Even on sedation patient able to wake up and follow commands. FiO2 reduced to 50% PEEP remains at 8. 10/08: Remains intubated currently off sedation last 1 hour. Remains very somnolent though tolerating CPAP. Urine output 2.6 L in 24 hours. Creatinine stable to slightly improved. FiO2 down to 40%. 10/09: Remains intubated off all sedation. Yesterday failed CPAP secondary to hypercapnia. Today appears more awake tolerating CPAP. Urine output more than 2.5 L with diuresis. Additional 60 mg IV Lasix ordered for today. Chest x-ray is pending 10/10: Patient was extubated yesterday tolerated well. Currently on nasal cannula more awake following commands. Requesting something to eat. Creatinine slightly improved. Urine output 3.1 L in 24 hours Objective Vital Signs / I&O: Vital Signs 10/09/18 10:33 10/09/18 11:00 10/09/18 11:33 Temperature 98.6 F 98.6 F 98.6 F Pulse Rate 70 77 73 Respiratory Rate 11 L 12 Blood Pressure 119/58 L 119/58 L 113/59 L Pulse Oximetry 96 97 97 10/09/18 12:00 10/09/18 12:33 10/09/18 13:00 Temperature 98.6 F 97.2 F L Pulse Rate 78 70 78 Respiratory Rate 12 24 Blood Pressure 121/59 L 116/56 L 123/59 L Pulse Oximetry 97 98 94 L 10/09/18 13:33 10/09/18 14:00 10/09/18 15:00 Temperature 98.9 F 98.5 F Pulse Rate 78 79 80 Respiratory Rate 26 H 20 Blood Pressure 114/56 L 127/60 137/61 Pulse Oximetry 97 96 99 10/09/18 15:33 10/09/18 15:35 10/09/18 16:00 Temperature 98.1 F Pulse Rate 86 92 H Respiratory Rate 20 Blood Pressure 129/62 129/60 Pulse Oximetry 99 98 10/09/18 16:03 10/09/18 16:20 10/09/18 16:33 Temperature Pulse Rate 83 84 Respiratory Rate Blood Pressure 144/61 H 129/60 Pulse Oximetry 96 98 100 10/09/18 17:00 10/09/18 17:33 10/09/18 18:00 Temperature Pulse Rate 87 90 Respiratory Rate 28 H 24 Blood Pressure 130/59 L 122/60 119/58 L Pulse Oximetry 99 95 10/09/18 19:00 10/09/18 19:03 10/09/18 20:00 Temperature 97.8 F Pulse Rate 89 89 86 Respiratory Rate 24 Blood Pressure 105/60 128/77 Pulse Oximetry 99 99 99 10/09/18 20:31 10/09/18 21:00 10/09/18 22:00 Temperature Pulse Rate 88 91 H 88 Respiratory Rate 20 20 24 Blood Pressure 141/66 H 153/71 H Pulse Oximetry 98 94 L 95 10/09/18 22:02 10/09/18 23:00 10/10/18 00:00 Temperature 98.0 F Pulse Rate 82 82 Respiratory Rate 22 20 Blood Pressure 139/68 145/72 H Pulse Oximetry 95 93 L 91 L 10/10/18 00:03 10/10/18 01:00 10/10/18 01:03 Temperature Pulse Rate 85 80 Respiratory Rate Blood Pressure 145/72 H 139/69 Pulse Oximetry 96 91 L 10/10/18 01:14 10/10/18 01:33 10/10/18 02:00 Temperature Pulse Rate 75 72 71 Respiratory Rate 23 22 24 Blood Pressure 142/68 H 149/73 H Pulse Oximetry 99 99 10/10/18 03:00 10/10/18 03:34 10/10/18 04:00 Temperature 97.2 F L Pulse Rate 69 78 73 Respiratory Rate 22 17 21 Blood Pressure 158/80 H 150/80 H Pulse Oximetry 96 94 L 99 10/10/18 05:00 10/10/18 06:00 10/10/18 07:00 Temperature Pulse Rate 80 79 78 Respiratory Rate 24 20 Blood Pressure 149/67 H 153/73 H Pulse Oximetry 93 L 94 L 10/10/18 07:03 10/10/18 07:33 10/10/18 08:00 Temperature 97.5 F L Pulse Rate 80 79 78 Respiratory Rate Blood Pressure 168/79 H 180/79 H Pulse Oximetry 98 10/10/18 08:03 10/10/18 09:00 10/10/18 09:59 Temperature Pulse Rate 80 81 83 Respiratory Rate 18 Blood Pressure 141/79 H 145/94 H Pulse Oximetry 100 10/10/18 10:00 10/10/18 10:01 Temperature Pulse Rate 82 Respiratory Rate Blood Pressure 141/81 H Pulse Oximetry 100 Intake & Output 10/09/18 10/10/18 10/10/18 18:59 06:59 18:59 Intake Total 585 / 585 200 / 200 100 / 100 Output Total 2100 / 2100 1500 / 1500 Balance -1515 / -1515 -1300 / -1300 100 / 100 Weight 162.7 kg Intake: IV 300 / 300 200 / 200 100 / 100 Maxipime Inj 1,000 MG In NS Inj 100 / 100 100 / 100 100 ML @ 200 mls/hr IV.SIG Q12H [facility] Rx#:[id number] Flagyl 500 MG Inj 100 ML @ 100 200 / 200 100 / 100 100 / 100 mls/hr IV.SIG Q8H [facility] Rx#: [id number] Tube Feeding 255 / 255 Water Bolus Amount Output: Stool 50 / 50 400 / 400 Urine Amount (Catheter) 2049 1100 / 1100 Indwelling Urethral Catheter 2049 1100 / 1100 Other: Date of Last Bowel Movement 10/08/18 10/10/18 Result Diagrams: 10/10/18 04:30 10/10/18 04:30 Objective Remarks: GENERAL: Morbidly obese middle-aged male, lying in bed HEENT: Normocephalic. Atraumatic. Pupils equal, round, reactive. NECK: Trachea is midline. JVD is unable to be assessed due to large neck circumference CHEST: Air entry diminished but equal no wheezes or crackles CARDIOVASCULAR: No murmurs, regular rhythm. Normotensive at this time ABDOMEN: Soft, morbidly obese, nontender, nondistended. No guarding. MUSCULOSKELETAL: Pulses 2+. 2+ peripheral edema. Bilateral lower extremities have venous stasis changes as well as open ulcerations which are dressed. These are erythematous and indurated. NEUROLOGICAL: Alert awake oriented. Normal speech. Follows commands x4 no focal deficits Assessment and Plan - Assessment and Plan Plan: Assessment: 68yM with acute multiorgan dysfunction, now slowly improving. Significant acute volume overload component which is responding also to iv diuretics. Plan by systems: Neurologic: Acute metabolic encephalopathy-resolved Discontinue all sedating medication Frequent neurochecks Respiratory: Acute hypoxic and hypercarbic respiratory failure Acute severe pulmonary edema Probable pneumonia Extubated 10/09/2018 tolerating well diuresis, breathing treatments, EzPAP q6 Head of bed elevated, Nebs See ID section for antibiotics Cardiovascular: Sepsis Acute congestive heart failure exacerbation Hypotension Forced diuresis, with scheduled Lasix. Arterial line discontinued 2D echo done February 2018 showed ejection fraction 50% Overall achieving negative balance Renal: Severe acute kidney injury Hyperkalemia-improved Foster with urometer. Q1 hour urine output checks Forced diuresis with IV Lasix Hyperkalemia medically treated Strict intake output, monitor and replete electrolytes, follow BUN creatinine. FEN/GI: Severe acute intravascular volume overload Morbid obesity Severe life-threatening hyperkalemia-resolved Severe anion gap metabolic acidosis Diarrhea Start cardiac diabetic diet Status post 2 rounds of medical management for hyperkalemia: Calcium, D50, insulin, bicarbonate. Continue Kayexalate. Forced diuresis with loop diuretics Heme/ID: Diarrhea: ? gastroenteritis Bilateral lower extremity cellulitis Severe sepsis Probable pneumonia Vancomycin, Cefepime-changed to antipseudomonal dose Flagyl IV. C. difficile toxin returns-C. difficile negative Discontinue vancomycin today 10/10/2018 Sputum culture, follow-up blood culture negative today Stool for enteric pathogens/ WBCs pending. ID Dr. Lawson Endocrine: SSI TSH WNL Prophylaxis: GI Prophylaxis PPI DVT Prophylaxis -- SCDs Subcu heparin Lines: 10/04 radial arterial line discontinued on 10/08/2018 Level 3. Continue ICU care at least for another 24 hours due to risk of acute decompensation
[2018-10-10] MEDS: Potassium Chloride Inj 20 MEQ, Sodium Chloride 23.4% Inj 38.5 MEQ in Water for Inj, Ste... IV.CONT SCH (11:33)
[2018-10-10] MEDS: Morphine Inj 4 MG/ML Vial IV.PUSH PRN (21:23)
[2018-10-11] MEDS: Potassium Chloride Inj 20 MEQ, Sodium Chloride 23.4% Inj 38.5 MEQ in Water for Inj, Ste... IV.CONT SCH ×3 (02:42→23:48)
--- NOTE | 2018-10-11 04:14 | XR ---
EXAM DATE: 10/11/2018 4:10 AM EST AGE/SEX: 68 years / Male INDICATIONS: Respiratory distress. CLINICAL DATA: This is the patient's subsequent encounter. Patient reports that signs and symptoms h ave been present for 1 week and indicates a pain score of 0/10. MEDICAL/SURGICAL HISTORY: Congestive heart failure. Chronic obstructive pulmonary disease. Hy pertension. Lymphedema. Smoker. None. COMPARISON: [facility] [place], CHEST 1V SINGLE AP, 10/09/2018. . FINDINGS: 2 AP views of the chest. Endotracheal tube and nasogastric tube no longer seen. Persistent left upper lung opacity and mild right lower lung opacity. No significant interval change. Cardiomediastinal si lhouette unchanged. No evidence of pleural effusion or pneumothorax. CONCLUSION: 1. Endotracheal tube and nasogastric tube no longer seen. 2. No change in bilateral pulmonary opacity left greater than right. Electronically signed by: Sandip Sainz MD 10/11/2018 4:12 AM EST
[2018-10-11] MEDS: hydrALAZINE HCl Inj 20 MG/ML Vial IV.PUSH PRN ×2 (04:39→23:07)
[2018-10-11 05:21] LABS: Baso # (Auto) 0.1 th/mm3 (0.0-0.2); Baso % (Auto) 0.6 % (0.0-2.0); Eos # (Auto) 0.3 th/mm3 (0.0-0.4); Eos % (Auto) 2.9 % (0.0-4.0); Hematocrit 32.2 % (39.0-51.0); Hemoglobin 10.2 gm/dL (13.0-17.0); Lymph # (Auto) 1.5 th/mm3 (1.0-4.8); Lymph % (Auto) 16.4 % (9.0-44.0); Mean Corpuscular HGB Conc 31.8 % (32.0-36.0); Mean Corpuscular Hemoglobin 32.2 pg (27.0-34.0); Mean Corpuscular Volume 101.1 fL (80.0-100.0); Mono % (Auto) 11.4 % (0.0-8.0); Neut # (Auto) 6.3 th/mm3 (1.8-7.7); Neut % (Auto) 68.7 % (16.0-70.0); Platelet Count 124 th/mm3 (150-450); Red Blood Count 3.18 mil/mm3 (4.50-5.90); White Blood Count 9.1 th/mm3 (4.0-11.0)
[2018-10-11 05:40] LABS: Albumin 1.9 g/dL (3.4-5.0); Anion Gap 7 meq/L (5-15); Aspartate Aminotransferase 12 U/L (15-37); Blood Urea Nitrogen 26 mg/dL (7-18); Calcium 7.5 mg/dL (8.5-10.1); Chloride 116 meq/L (98-107); Glomerular Filtration Rate 48 mL/min (>89); Glucose,Random 99 mg/dL (74-106); Magnesium 1.9 mg/dL (1.5-2.5); Potassium 4.5 meq/L (3.5-5.1); Sodium 149 meq/L (136-145)
[2018-10-11 05:45] LABS: Alanine Aminotransferase 7 U/L (12-78); Alkaline Phosphatase 70 U/L (45-117); Phosphorus 2.5 mg/dL (2.5-4.9); Total Protein 5.9 g/dL (6.4-8.2)
[2018-10-11] MEDS: Heparin - SQ 10,000 UNITS/ML Vial SQ SCH ×3 (06:12→21:00)
[2018-10-11] MEDS: Morphine Inj 4 MG/ML Vial IV.PUSH PRN ×4 (06:23→23:49)
[2018-10-11] MEDS: Insulin NovoLIN Regular Correctional Sugar Inj SQ SCH ×4 (10:12→21:01)
[2018-10-11] MEDS: Budesonide-Formoterol 160/4.5 MCG 6 GM Inhaler INH SCH ×2 (10:14→20:49)
--- NOTE | 2018-10-11 12:10 | P.PNID ---
Subjective Remarks: Patient is a 68-year-old morbidly obese male, presented to the hospital complaining of several day history of abdominal pain and diarrhea. There was no mention of any fever chills or sweats. CT of the abdomen and pelvis did not show any evidence of abnormality in the colon or bowel. His blood pressure is okay, but the patient was hypoxic and worsened respiratory ferrera and ended up getting intubated. He also has evidence of acute kidney injury and hyperkalemia. Patient has since developed significant hypothermia and currently on a warming blanket. He is sedated and intubated. His creatinine is a little bit better, but he remains acidotic and he is on a bicarb drip. Chest x-ray showing bilateral pulmonary infiltrates. Infectious disease consultation has been requested to assist with evaluation and treatment of his sepsis. Notes reviewed D/W RN Extubated this weekend - on nasal O2 Denies SOB has developed more bullous lesions in both UE, R worse than the L Good UO Creatinine 1.7 BP ok Temps ok Passed swallowing CXR stable WBC ok Antibiotics: Cefepime IV Flagyl Past Medical History: CHF (congestive heart failure) COPD (chronic obstructive pulmonary disease) Diabetes mellitus HTN (hypertension) Lymphedema Pressure ulcer Sleep apnea History of carpal tunnel surgery of right wrist Allergies/Adverse Reactions: Allergies No Known Allergies Allergy (Verified 10/04/18 14:59) Objective Vital Signs 10/10/18 13:00 10/10/18 14:00 10/10/18 15:00 Temperature Pulse Rate 86 101 H 87 Respiratory Rate 20 Blood Pressure 126/83 130/71 142/81 H Pulse Oximetry 100 94 L 10/10/18 16:00 10/10/18 17:00 10/10/18 17:53 Temperature 98.3 F Pulse Rate 86 92 H 95 H Respiratory Rate Blood Pressure 149/109 H 190/84 H 167/75 H Pulse Oximetry 100 87 L 10/10/18 18:00 10/10/18 19:00 10/10/18 20:00 Temperature 97.9 F Pulse Rate 85 95 H 87 Respiratory Rate Blood Pressure 167/69 H 163/106 H 162/83 H Pulse Oximetry 91 L 100 96 10/10/18 20:37 10/10/18 21:00 10/10/18 21:53 Temperature Pulse Rate 84 91 H Respiratory Rate 16 22 Blood Pressure 148/80 H Pulse Oximetry 97 11/11/18 22:00 10/10/18 23:00 10/11/18 00:00 Temperature 98.6 F Pulse Rate 89 87 88 Respiratory Rate 23 Blood Pressure 139/65 158/74 H 155/71 H Pulse Oximetry 92 L 91 L 94 L 10/11/18 00:25 10/11/18 01:00 10/11/18 02:00 Temperature Pulse Rate 81 77 Respiratory Rate Blood Pressure 148/66 H 149/70 H Pulse Oximetry 96 90 L 83 L 10/11/18 03:00 10/11/18 03:18 10/11/18 03:30 Temperature Pulse Rate 82 78 85 Respiratory Rate Blood Pressure 203/84 H 196/91 H 187/79 H Pulse Oximetry 97 75 L 10/11/18 03:45 10/11/18 04:00 10/11/18 05:00 Temperature 98.4 F Pulse Rate 81 78 83 Respiratory Rate 23 21 Blood Pressure 183/88 H 167/74 H Pulse Oximetry 98 100 97 10/11/18 06:00 10/11/18 07:45 Temperature Pulse Rate 85 Respiratory Rate Blood Pressure 146/75 H Pulse Oximetry 96 100 Intake & Output 10/10/18 10/11/18 10/11/18 18:59 06:59 18:59 Intake Total 1500 / 1500 1219.625 / 1219.625 Output Total 2049 825 / 825 Balance -550 / -550 394.625 / 394.625 Weight 169.9 kg Intake: IV 300 / 300 1219.625 / 1219.625 KCl Inj 20 MEQ Sodium Chloride 1019.625 / 1019.625 23.4% Inj 38.5 MEQ In Sterile Water for Inj 1,000 ML @ 84 mls /hr IV.CONT .Q12H9M [facility] Rx#: [id number] Maxipime Inj 1,000 MG In NS Inj 100 / 100 100 / 100 100 ML @ 200 mls/hr IV.SIG Q12H [facility] Rx#:[id number] Flagyl 500 MG Inj 100 ML @ 100 200 / 200 100 / 100 mls/hr IV.SIG Q8H [facility] Rx#: [id number] Oral 1200 / 1200 Output: Stool 100 / 100 150 / 150 Urine Amount (Catheter) 1949 675 / 675 Indwelling Urethral Catheter 1950 / 1950 675 / 675 Other: Date of Last Bowel Movement 10/10/18 10/10/18 10/05/18 00:05 Blood - Peripheral Aerobic Blood Culture - Final No growth in 5 days 10/05/18 00:05 Blood - Peripheral Anaerobic Blood Culture - Final No growth in 5 days 10/05/18 00:00 Blood - Peripheral Aerobic Blood Culture - Final No growth in 5 days 10/05/18 00:00 Blood - Peripheral Anaerobic Blood Culture - Final No growth in 5 days 10/06/18 15:00 Sputum - Endotracheal Gram Stain - Final 10/06/18 15:00 Sputum - Endotracheal Sputum Culture - Final Heavy growth normal respiratory edison 10/06/18 15:00 Stool Stool for WBCs - Final No WBC's seen Lab - Hematology Results 10/10/18 10/11/18 04:30 04:27 WBC 7.2 9.1 RBC 3.09 L 3.18 L Hgb 9.9 L 10.2 L Hct 32.0 L 32.2 L MCV 103.6 H 101.1 H MCH 32.0 32.2 MCHC 30.9 L 31.8 L RDW 16.5 16.0 Plt Count 111 L 124 L MPV 10.5 12.0 H Prelim Diff (Auto) Slide review pending Neut % (Auto) 61.8 68.7 Lymph % (Auto) 21.1 16.4 Sampson % (Auto) 12.7 H 11.4 H Eos % (Auto) 3.7 2.9 Baso % (Auto) 0.7 0.6 Neut # (Auto) 4.4 6.3 Lymph # (Auto) 1.5 1.5 Sampson # (Auto) 0.9 1.0 H Eos # (Auto) 0.3 0.3 Baso # (Auto) 0.0 0.1 WBC Differential . . Diff Scan Auto diff confirmed Differential Comment Auto diff final . Platelet Estimate Low L Platelet Morphology Enlarged H Lab - Chemistry Results 10/09/18 10/09/18 10/10/18 16:57 23:47 04:30 Sodium 154 H Potassium 4.0 Chloride 119 H Carbon Dioxide 27.9 Anion Gap 7 BUN 26 H Creatinine 1.72 H Estimated GFR 48 L POC Glucose 91 103 Random Glucose 84 Calcium 7.6 L Phosphorus 3.1 Magnesium 2.0 Total Bilirubin 0.3 AST 16 ALT Less than 6 L Alkaline Phosphatase 77 Total Protein 6.0 L Albumin 1.9 L 10/10/18 10/10/18 10/10/18 11:15 17:55 20:52 Sodium Potassium Chloride Carbon Dioxide Anion Gap BUN Creatinine Estimated GFR POC Glucose 87 106 105 Random Glucose Calcium Phosphorus Magnesium Total Bilirubin AST ALT Alkaline Phosphatase Total Protein Albumin 10/11/18 10/11/18 10/11/18 04:27 09:25 12:03 Sodium 149 H Potassium 4.5 Chloride 116 H Carbon Dioxide 26.0 Anion Gap 7 BUN 26 H Creatinine 1.73 H Estimated GFR 48 L POC Glucose 82 93 Random Glucose 99 Calcium 7.5 L Phosphorus 2.5 Magnesium 1.9 Total Bilirubin 0.4 AST 12 L ALT 7 L Alkaline Phosphatase 70 Total Protein 5.9 L Albumin 1.9 L Imaging: ITS Impressions Abdomen/Pelvis CT 10/04/18 15:12 CONCLUSION: 1. Mild interstitial prominence and airspace disease in the left lung base. 2. Mildly enlarged adrenal glands which may be hyperplastic. 3. No evidence of inflammatory bowel disease, biliary obstructive disease, hydronephrosis, suspicious mass or lymphadenopathy. Chest X-Ray 10/11/18 06:00 CONCLUSION: 1. Endotracheal tube and nasogastric tube no longer seen. 2. No change in bilateral pulmonary opacity left greater than right. Physical Exam: GENERAL: awake and alert, NAD SKIN: Warm and dry. Has bullous lesions in BUE, some unroofed HEAD: [place] conjunctiva. No petechia or hemorrhage. No scleral icterus. No injection or drainage. EARS, NOSE AND THROAT: Moist mucosa NECK: Neck is short and obese, supple CARDIOVASCULAR: Regular rate and rhythm. No murmurs, rubs or gallops heard RESPIRATORY: Coarse breath sounds bilaterally, decreased at the bases. ABDOMEN: Soft, obese, not tender, not distended. Bowel sounds present. EXTREMITIES: No clubbing, cyanosis. Has chronic skin changes in both LE, tree bark appearance of skin, with clean superficial ulcers. Bullous lesions in UE with dressings NEUROLOGICAL: Non-focal PSYCHIATRIC: Cooperative. LINE: No evidence of infection Assessment and Plan - Plan Impression Sepsis on admission, better - source? - came in with abdominal pain and diarrhea, CT no evidence of colitis, had recent Abx for toe infection, ?C diff, ?other etiology gastroenteritis - bilateral infiltrates, likely CHF; did not have PNA symptoms on presentation; CXR better - UA ok - has leg ulcers, but look ok, has chronic LE edema - better Bullous lesions BUE, etiology? Hypothermia, resolved Respiratory failure, extubated CHRISTAL, good UO Morbid obesity Recommendation Stop Abx and monitor off Abx Wound care Follow temps Monitor progress D/W RN D/W Dr Leahy ([facility])
--- NOTE | 2018-10-11 12:43 | P.PNCC ---
Subjective Subjective Remarks/Hospital Course: 10/04: This is a 68-year-old morbidly obese -[place] male who presented to the emergency department for abdominal pain and diarrhea. CT abdomen pelvis at that time demonstrates probable colitis. Always in the emergency department he became more more somnolent as well as hypoxic. He was tried on BiPAP, but his PCO2 continued to rise. He was emergently intubated. In addition all this he has severe acute kidney injury with associated severe hyperkalemia with a potassium greater than 7 not responsive to initial medical management. On my evaluation he is intubated and sedated no new additional information is available from him. Chest x-ray demonstrates acute pulmonary edema. The patient responded to 200 mg of IV Lasix with improving potassium and so emergent dialysis was not required. Patient however does remain severely acidotic despite IV bicarbonate and a bicarbonate infusion was started. Review of systems is unobtainable. 10/05: Orally intubated on mechanical ventilation, sedated, arousable. Potassium 5.9 this morning. Additional Kayexalate ordered. Hypothermic requiring Mariaelena hugger. Check TSH which is within normal limits. Elevated blood pressure for which hydralazine as needed was ordered which helped. 10/06: Remains intubated heavily sedated for vent synchrony. Worsening hypoxia FiO2 increased to 60% PEEP to 10. Urine output improved with the diuresis. Borderline hypotensive placed on Archie-Synephrine briefly. I will increase cefepime to antipseudomonal dose. C. difficile and sputum cultures are pending at this time his bradycardia bring his heart rate up from 40s to 50s. 10/07: Remains critical but making some improvement. Chest x-ray shows interval improvement in bilateral infiltrates. Even on sedation patient able to wake up and follow commands. FiO2 reduced to 50% PEEP remains at 8. 10/08: Remains intubated currently off sedation last 1 hour. Remains very somnolent though tolerating CPAP. Urine output 2.6 L in 24 hours. Creatinine stable to slightly improved. FiO2 down to 40%. 10/09: Remains intubated off all sedation. Yesterday failed CPAP secondary to hypercapnia. Today appears more awake tolerating CPAP. Urine output more than 2.5 L with diuresis. Additional 60 mg IV Lasix ordered for today. Chest x-ray is pending 10/10: Patient was extubated yesterday tolerated well. Currently on nasal cannula more awake following commands. Requesting something to eat. Creatinine slightly improved. Urine output 3.1 L in 24 hours 10/11: Remains on NC, good O2 saturation. Open blisters on right forearm. Urine output 2.6 L in 24 hours. Creatinine remains stable Objective Vital Signs / I&O: Vital Signs 10/10/18 13:00 10/10/18 14:00 10/10/18 15:00 Temperature Pulse Rate 86 101 H 87 Respiratory Rate 20 Blood Pressure 126/83 130/71 142/81 H Pulse Oximetry 100 94 L 10/10/18 16:00 10/10/18 17:00 10/10/18 17:53 Temperature 98.3 F Pulse Rate 86 92 H 95 H Respiratory Rate Blood Pressure 149/109 H 190/84 H 167/75 H Pulse Oximetry 100 87 L 10/10/18 18:00 10/10/18 19:00 10/10/18 20:00 Temperature 97.9 F Pulse Rate 85 95 H 87 Respiratory Rate Blood Pressure 167/69 H 163/106 H 162/83 H Pulse Oximetry 91 L 100 96 10/10/18 20:37 10/10/18 21:00 10/10/18 21:53 Temperature Pulse Rate 84 91 H Respiratory Rate 16 22 Blood Pressure 148/80 H Pulse Oximetry 97 10/10/18 22:00 10/10/18 23:00 10/11/18 00:00 Temperature 98.6 F Pulse Rate 89 87 88 Respiratory Rate 23 Blood Pressure 139/65 158/74 H 155/71 H Pulse Oximetry 92 L 91 L 94 L 10/11/18 00:25 10/11/18 01:00 10/11/18 02:00 Temperature Pulse Rate 81 77 Respiratory Rate Blood Pressure 148/66 H 149/70 H Pulse Oximetry 96 90 L 83 L 10/11/18 03:00 10/11/18 03:18 10/11/18 03:30 Temperature Pulse Rate 82 78 85 Respiratory Rate Blood Pressure 203/84 H 196/91 H 187/79 H Pulse Oximetry 97 75 L 10/11/18 03:45 10/11/18 04:00 10/11/18 05:00 Temperature 98.4 F Pulse Rate 81 78 83 Respiratory Rate 23 21 Blood Pressure 183/88 H 167/74 H Pulse Oximetry 98 100 97 10/11/18 06:00 10/11/18 07:45 Temperature Pulse Rate 85 Respiratory Rate Blood Pressure 146/75 H Pulse Oximetry 96 100 Intake & Output 10/10/18 10/11/18 10/11/18 18:59 06:59 18:59 Intake Total 1500 / 1500 1219.625 / 1219.625 Output Total 2049 / 2049 825 / 825 Balance -550 / -550 394.625 / 394.625 Weight 169.9 kg Intake: IV 300 / 300 1219.625 / 1219.625 KCl Inj 20 MEQ Sodium Chloride 1019.625 / 1019.625 23.4% Inj 38.5 MEQ In Sterile Water for Inj 1,000 ML @ 84 mls /hr IV.CONT .Q12H9M [facility] Rx#: [id number] Maxipime Inj 1,000 MG In NS Inj 100 / 100 100 / 100 100 ML @ 200 mls/hr IV.SIG Q12H [facility] Rx#:[id number] Flagyl 500 MG Inj 100 ML @ 100 200 / 200 100 / 100 mls/hr IV.SIG Q8H [facility] Rx#: [id number] Oral 1200 / 1200 Output: Stool 100 / 100 150 / 150 Urine Amount (Catheter) 1949 675 / 675 Indwelling Urethral Catheter 1949 675 / 675 Other: Date of Last Bowel Movement 10/10/18 10/10/18 Result Diagrams: 10/11/18 04:27 10/11/18 04:27 Objective Remarks: GENERAL: Morbidly obese middle-aged male, lying in bed HEENT: Normocephalic. Atraumatic. Pupils equal, round, reactive. NECK: Trachea is midline. JVD is unable to be assessed due to large neck circumference CHEST: Air entry diminished but equal no wheezes or crackles CARDIOVASCULAR: No murmurs, regular rhythm. Normotensive at this time ABDOMEN: Soft, morbidly obese, nontender, nondistended. No guarding. MUSCULOSKELETAL: Pulses 2+. 2+ peripheral edema. Bilateral lower extremities have venous stasis changes as well as open ulcerations which are dressed. These are erythematous and indurated. Open blisters noted on the right roshan NEUROLOGICAL: Alert awake oriented. Normal speech. Follows commands x4 no focal deficits Assessment and Plan - Assessment and Plan Plan: Assessment: 68yM with acute multiorgan dysfunction, now slowly improving. Significant acute volume overload component which is responding also to iv diuretics. Plan by systems: Neurologic: Acute metabolic encephalopathy-resolved Discontinue all sedating medication Frequent neurochecks Respiratory: Acute hypoxic and hypercarbic respiratory failure-resolved Acute severe pulmonary edema Probable pneumonia Extubated 10/09/2018 tolerating well diuresis, breathing treatments, EzPAP q6 40 mg IV Lasix daily BiPAP as needed and cleared night Pulmonary consult Head of bed elevated, Nebs See ID section for antibiotics Cardiovascular: Sepsis Acute congestive heart failure exacerbation Hypotension Forced diuresis, with scheduled Lasix. Arterial line discontinued 2D echo done February 2018 showed ejection fraction 50% Overall achieving negative balance Renal: Acute kidney injury Hyperkalemia-improved Foster with urometer. Q1 hour urine output checks Forced diuresis with IV Lasix Hyperkalemia medically treated Strict intake output, monitor and replete electrolytes, follow BUN creatinine. FEN/GI: Acute intravascular volume overload Morbid obesity Severe life-threatening hyperkalemia-resolved Severe anion gap metabolic acidosis Diarrhea Start cardiac diabetic diet Status post 2 rounds of medical management for hyperkalemia: Calcium, D50, insulin, bicarbonate. Continue Kayexalate. Forced diuresis with loop diuretics Heme/ID: Diarrhea: ? gastroenteritis Bilateral lower extremity cellulitis Severe sepsis Probable pneumonia Currently on cefepime and Flagyl. Discontinue both, discussed with ID Consult wound care for blisters in right upper extremity Discontinued vancomycin 10/10/2018 Sputum culture, follow-up blood culture negative todate Stool for enteric pathogens/ WBCs pending. ID Dr. Lawson Endocrine: SSI TSH WNL Prophylaxis: GI Prophylaxis PPI DVT Prophylaxis -- SCDs Subcu heparin Lines: 10/04 radial arterial line discontinued on 10/08/2018 Level 2. Consult hospitalist to assume care 10/12/2018. Pulmonary consulted. Transferred to stepdown unit with telemetry Code Status: Full
--- NOTE | 2018-10-11 16:02 | MB ---
cc: Anthony Hearn MD DATE: 10/11/2018 REQUESTING PHYSICIAN: Dr. Long REASON FOR CONSULTATION: COPD and respiratory. HISTORY OF PRESENT ILLNESS: The patient is a 68-year-old morbidly obese man with history of COPD, obstructive sleep apnea. He does not use CPAP machine. He uses oxygen all the time. He came to the hospital with shortness of breath. He deteriorated and he has worsening of his renal failure. He was intubated. Now he has been successfully extubated and using 3 liters nasal cannula. The patient feels very weak, has not been ambulating much. He states that he can manage on his own. PAST MEDICAL HISTORY: COPD, congestive heart failure, hypertension, diverticulitis, lymphedema, sleep apnea, carpal tunnel surgery. MEDICATIONS: 1. Albuterol nebulizer treatment. 2. Norvasc. 3. Symbicort. 4. Lasix. 5. Heparin. 6. Hydralazine. 7. Metoprolol. 8. Protonix. ALLERGIES: NO KNOWN DRUG ALLERGIES. SOCIAL HISTORY: He is single. 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 No prior history of smoking. He came to the hospital. Drinks rarely. FAMILY HISTORY: He says 1 brother and 1 sister. REVIEW OF SYSTEMS: He walks only short distance. No headache or dizziness. PHYSICAL EXAMINATION: GENERAL: Obese male, mildly short of breath, not in acute distress. VITAL SIGNS: His blood pressure 146/76, heart rate 80, respiratory rate 18, temperature 98. HEENT: Unremarkable. NECK: JVP not raised. CHEST: Equal air entry. No rhonchi. HEART: S1, S2 normal. ABDOMEN: Benign. EXTREMITIES: Both extremities are dressed. IMPRESSION: 1. Chronic obstructive pulmonary disease. 2. Obstructive sleep apnea. 3. Status post respirator. 4. Chronic kidney disease. 5. Hypertension. 6. Diabetes mellitus. PLAN: We will maintain on nasal cannula, give aerosol treatment, IV Solu-Medrol. Monitor his blood sugars. We will recheck his pulmonary function study. He will also need a sleep study as outpatient. MD ERMIAS Barrera/es , 02:53 PM , 03:01 PM
[2018-10-12] MEDS: hydrALAZINE HCl Inj 20 MG/ML Vial IV.PUSH PRN ×2 (03:50→10:08)
[2018-10-12] MEDS: Potassium Chloride Inj 20 MEQ, Sodium Chloride 23.4% Inj 38.5 MEQ in Water for Inj, Ste... IV.CONT SCH ×2 (04:46→18:01)
[2018-10-12] MEDS: Heparin - SQ 10,000 UNITS/ML Vial SQ SCH ×3 (05:01→21:24)
[2018-10-12] MEDS: Morphine Inj 4 MG/ML Vial IV.PUSH PRN ×3 (07:00→21:25)
[2018-10-12] MEDS: Insulin NovoLIN Regular Correctional Sugar Inj SQ SCH ×4 (08:26→22:38)
[2018-10-12] MEDS: Budesonide-Formoterol 160/4.5 MCG 6 GM Inhaler INH SCH ×2 (08:27→22:38)
[2018-10-12] MEDS: Metoprolol Tartrate 50 MG Tablet PO SCH ×2 (10:34→21:24)
--- NOTE | 2018-10-12 10:54 | P.PNPL ---
Subjective Interval history: 68 YOAA male with COPD, RF, s/p extubation. Breathing better Mild wheezing " You guys gave me somthing which causes blisters on my arms, legs" Physical Exam Vital signs: Vital Signs 10/11/18 11:00 10/11/18 12:00 10/11/18 13:00 Temperature 97.7 F Pulse Rate 83 87 84 Respiratory Rate 12 Blood Pressure Pulse Oximetry 97 98 96 10/11/18 13:53 10/11/18 13:54 10/11/18 14:00 Temperature Pulse Rate 86 84 86 Respiratory Rate Blood Pressure 189/88 H 199/95 H Pulse Oximetry 97 97 97 10/11/18 15:00 10/11/18 15:53 10/11/18 16:00 Temperature 97.9 F Pulse Rate 88 88 86 Respiratory Rate 20 Blood Pressure Pulse Oximetry 97 100 10/11/18 17:00 10/11/18 17:55 10/11/18 18:00 Temperature Pulse Rate 92 H 100 H 89 Respiratory Rate Blood Pressure 191/93 H Pulse Oximetry 95 94 L 96 10/11/18 19:00 10/11/18 20:00 10/11/18 20:10 Temperature 98.5 F Pulse Rate 100 H 100 H 97 H Respiratory Rate 18 Blood Pressure Pulse Oximetry 97 96 96 10/11/18 21:00 10/11/18 21:04 10/11/18 23:00 Temperature Pulse Rate 97 H 97 H 99 H Respiratory Rate Blood Pressure 141/78 H Pulse Oximetry 96 95 10/11/18 23:16 10/11/18 23:56 10/12/18 00:00 Temperature 98.4 F Pulse Rate 97 H 106 H Respiratory Rate 21 16 Blood Pressure 223/89 H Pulse Oximetry 98 10/12/18 00:07 10/12/18 01:00 10/12/18 02:00 Temperature 98.3 F Pulse Rate 100 H 95 H 93 H Respiratory Rate 20 Blood Pressure 165/74 H Pulse Oximetry 98 10/12/18 03:00 10/12/18 03:45 10/12/18 04:00 Temperature 98.1 F Pulse Rate 90 96 H 92 H Respiratory Rate 17 Blood Pressure 203/83 H Pulse Oximetry 97 10/12/18 04:07 10/12/18 04:18 10/12/18 05:00 Temperature Pulse Rate 87 100 H Respiratory Rate 16 Blood Pressure 168/77 H Pulse Oximetry 10/12/18 06:00 10/12/18 07:00 10/12/18 08:00 Temperature 98.2 F Pulse Rate 97 H 99 H 94 H Respiratory Rate 20 Blood Pressure 206/75 H Pulse Oximetry 94 L 10/12/18 09:00 10/12/18 09:03 10/12/18 09:17 Temperature Pulse Rate 96 H Respiratory Rate Blood Pressure Pulse Oximetry 100 96 Intake & Output 10/11/18 10/12/18 10/12/18 18:59 06:59 18:59 Intake Total 960 / 960 1119.625 / 1119.625 Output Total 1850 / 1850 475 / 475 Balance -890 / -890 644.625 / 644.625 Weight 167.4 kg Intake: IV 1119.625 / 1119.625 KCl Inj 20 MEQ Sodium Chloride 1019.625 / 1019.625 23.4% Inj 38.5 MEQ In Sterile Water for Inj 1,000 ML @ 84 mls /hr IV.CONT .Q12H9M [facility] Rx#: [id number] Oral 960 / 960 Output: Urine 475 / 475 Stool 0 / 0 Urine Amount (Catheter) 1849 / 1849 Indwelling Urethral Catheter 1849 Other: Date of Last Bowel Movement 10/10/18 10/11/18 GENERAL: WBWN NAD SKIN: Warm and dry. HEAD: Normocephalic. EYES: No scleral icterus. No injection or drainage. NECK: Supple, trachea midline. No JVD or lymphadenopathy. CARDIOVASCULAR: Regular rate and rhythm without murmurs, gallops, or rubs. RESPIRATORY: Breath sounds equal bilaterally. No accessory muscle use. GASTROINTESTINAL: Abdomen soft, non-tender, nondistended. MUSCULOSKELETAL: No cyanosis, or edema. Extremities covered with bandages BACK: Nontender without obvious deformity. No CVA tenderness. - Urinary Catheter Management Indwelling Urethral Catheter Cath placed during this visit: yes Reason for continuing: Other continuation reason Insertion date: 10/04/18 Insertion time: 21:39 Assessment and Plan - Plan IMPRESSION: 1. Chronic obstructive pulmonary disease. 2. Obstructive sleep apnea. 3. Status post respirator. 4. Chronic kidney disease. 5. Hypertension. 6. Diabetes mellitus. PLAN: Aerosol nebs Symbicort 2 puffs bid Heparin 5000 IU q 12 hrs Supplement 02 Monitor renal functions
--- NOTE | 2018-10-12 11:20 | P.PNIM ---
Subjective Interval history: The patient says that he went to sleep and when he woke up he was covered in blisters. He did not realize he had a hard time breathing in the emergency department. He said he presented with leg pain and diarrhea. He says he feels very weak. He says normally he lives alone. He says he has had a cloth burler and kidney doctor in the past. Discussed with nursing. Physical Exam Vital signs: Vital Signs 10/11/18 12:00 10/11/18 13:00 10/11/18 13:53 Temperature 97.7 F Pulse Rate 87 84 86 Respiratory Rate 12 Blood Pressure 189/88 H Pulse Oximetry 98 96 97 10/11/18 13:54 10/11/18 14:00 10/11/18 15:00 Temperature Pulse Rate 84 86 88 Respiratory Rate Blood Pressure 199/95 H Pulse Oximetry 97 97 97 10/11/18 15:53 10/11/18 16:00 10/11/18 17:00 Temperature 97.9 F Pulse Rate 88 86 92 H Respiratory Rate 20 Blood Pressure Pulse Oximetry 100 95 10/11/18 17:55 10/11/18 18:00 10/11/18 19:00 Temperature Pulse Rate 100 H 89 100 H Respiratory Rate Blood Pressure 191/93 H Pulse Oximetry 94 L 96 97 10/11/18 20:00 10/11/18 20:10 10/11/18 21:00 Temperature 98.5 F Pulse Rate 100 H 97 H 97 H Respiratory Rate 18 Blood Pressure Pulse Oximetry 96 96 96 10/11/18 21:04 10/11/18 23:00 10/11/18 23:16 Temperature 98.4 F Pulse Rate 97 H 99 H 97 H Respiratory Rate 21 Blood Pressure 141/78 H 223/89 H Pulse Oximetry 95 98 10/11/18 23:56 10/12/18 00:00 10/12/18 00:07 Temperature 98.3 F Pulse Rate 106 H 100 H Respiratory Rate 16 20 Blood Pressure 165/74 H Pulse Oximetry 98 10/12/18 01:00 10/12/18 02:00 10/12/18 03:00 Temperature Pulse Rate 95 H 93 H 90 Respiratory Rate Blood Pressure Pulse Oximetry 10/12/18 03:45 10/12/18 04:00 10/12/18 04:07 Temperature 98.1 F Pulse Rate 96 H 92 H Respiratory Rate 17 Blood Pressure 203/83 H 168/77 H Pulse Oximetry 97 10/12/18 04:18 10/12/18 05:00 10/12/18 06:00 Temperature Pulse Rate 87 100 H 97 H Respiratory Rate 16 Blood Pressure Pulse Oximetry 10/12/18 07:00 10/12/18 08:00 10/12/18 09:00 Temperature 98.2 F Pulse Rate 99 H 94 H 96 H Respiratory Rate 20 Blood Pressure 206/75 H Pulse Oximetry 94 L 10/12/18 09:03 10/12/18 09:17 10/12/18 11:10 Temperature 98.4 F Pulse Rate 98 H Respiratory Rate 20 Blood Pressure 184/91 H Pulse Oximetry 100 96 100 Intake & Output 10/11/18 10/12/18 10/12/18 18:59 06:59 18:59 Intake Total 960 / 960 1119.625 / 1119.625 Output Total 1850 / 1850 475 / 475 Balance -890 / -890 644.625 / 644.625 Weight 167.4 kg Intake: IV 1119.625 / 1119.625 KCl Inj 20 MEQ Sodium Chloride 1019.625 / 1019.625 23.4% Inj 38.5 MEQ In Sterile Water for Inj 1,000 ML @ 84 mls /hr IV.CONT .Q12H9M [facility] Rx#: [id number] Oral 960 / 960 Output: Urine 475 / 475 Stool 0 / 0 Urine Amount (Catheter) 1849 / 0 Indwelling Urethral Catheter 1849 Other: Date of Last Bowel Movement 10/10/18 10/11/18 Narrative: GENERAL: Patient is a morbidly obese, well-developed male, not in distress. SKIN: Warm and dry. No generalized rash. HEAD: Atraumatic. Normocephalic. No temporal wasting, or tenderness. EYES: No scleral icterus. No injection or drainage. EARS, NOSE AND THROAT: Nose without bleeding or purulent nasal discharge. NECK: Neck is short and obese, supple CARDIOVASCULAR: Regular rate and rhythm. No murmurs, rubs or gallops heard. RESPIRATORY: Decreased breath sounds appreciated. ABDOMEN: Soft, obese, mildly distended, nontender. Bowel sounds hypoactive. EXTREMITIES: No clubbing, cyanosis. Has anasarca. NEUROLOGICAL: Awake and alert. Moves upper and lower extremities. - Urinary Catheter Management Indwelling Urethral Catheter Cath placed during this visit: yes Reason for continuing: Other continuation reason Insertion date: 10/04/18 Insertion time: 21:39 Results - Labs CBC & Chem 7: 10/11/18 04:27 10/11/18 04:27 Laboratory Results - last 24 hr 10/11/18 10/11/18 10/11/18 12:03 17:46 20:55 POC Glucose 93 98 96 10/12/18 08:25 POC Glucose 111 H Assessment and Plan - Plan Acute hypoxic and hypercarbic respiratory failure/Acute severe pulmonary edema Extubated 10/09/2018 tolerating well. -diuresis, breathing treatments, EzPAP q6, IS. -40 mg IV Lasix BID. -BiPAP as needed. -Pulmonary consult appreciated. -encourage ambulation. PT/OT. Acute congestive heart failure exacerbation/Hypotension 2D echo done February 2018 showed ejection fraction 50%. -Forced diuresis with scheduled Lasix. -follow Is and Os. Accelerated HTN SBP over 200 at times. -continue hydralazine, amlodipine and Lopressor. Adjust as needed. -hydralazine IV as needed. Acute kidney injury/Hyperkalemia S/p treatment of hyperkalemia. Creatinine improving. -Strict intake output, monitor and replete electrolytes, follow BUN creatinine. -nephrology consult for anasarca, uncontrolled HTN and renal insufficiency. Diarrhea/Bilateral lower extremity cellulitis/Blisters ID consult appreciated. Cultures negative. Antibiotics have been discontinued. -Consult wound care for blisters. DVT Prophylaxis: Heparin
[2018-10-12] MEDS ORDERED: amLODIPine 5 MG Tablet PO SCH (12:00)
--- NOTE | 2018-10-12 13:59 | P.PNID ---
Subjective Remarks: Patient is a 68-year-old morbidly obese male, presented to the hospital complaining of several day history of abdominal pain and diarrhea. There was no mention of any fever chills or sweats. CT of the abdomen and pelvis did not show any evidence of abnormality in the colon or bowel. His blood pressure is okay, but the patient was hypoxic and worsened respiratory ferrera and ended up getting intubated. He also has evidence of acute kidney injury and hyperkalemia. Patient has since developed significant hypothermia and currently on a warming blanket. He is sedated and intubated. His creatinine is a little bit better, but he remains acidotic and he is on a bicarb drip. Chest x-ray showing bilateral pulmonary infiltrates. Infectious disease consultation has been requested to assist with evaluation and treatment of his sepsis. Notes reviewed Doing well Out of ICU Off all Abx Denies SOB Bullous lesions in both UE, with dressing Good UO Creatinine 1.7 BP ok Temps ok Passed swallowing CXR stable WBC ok Antibiotics: None Past Medical History: CHF (congestive heart failure) COPD (chronic obstructive pulmonary disease) Diabetes mellitus HTN (hypertension) Lymphedema Pressure ulcer Sleep apnea History of carpal tunnel surgery of right wrist Allergies/Adverse Reactions: Allergies No Known Allergies Allergy (Verified 10/04/18 14:59) Objective Vital Signs 10/11/18 14:00 10/11/18 15:00 10/11/18 15:53 Temperature Pulse Rate 86 88 88 Respiratory Rate 20 Blood Pressure Pulse Oximetry 97 97 10/11/18 16:00 10/11/18 17:00 10/11/18 17:55 Temperature 97.9 F Pulse Rate 86 92 H 100 H Respiratory Rate Blood Pressure 191/93 H Pulse Oximetry 100 95 94 L 10/11/18 18:00 10/11/18 19:00 10/11/18 20:00 Temperature 98.5 F Pulse Rate 89 100 H 100 H Respiratory Rate Blood Pressure Pulse Oximetry 96 97 96 10/11/18 20:10 10/11/18 21:00 10/11/18 21:04 Temperature Pulse Rate 97 H 97 H 97 H Respiratory Rate 18 Blood Pressure 141/78 H Pulse Oximetry 96 96 95 10/11/18 23:00 10/11/18 23:16 10/11/18 23:56 Temperature 98.4 F Pulse Rate 99 H 97 H Respiratory Rate 21 16 Blood Pressure 223/89 H Pulse Oximetry 98 10/12/18 00:00 10/12/18 00:07 10/12/18 01:00 Temperature 98.3 F Pulse Rate 106 H 100 H 95 H Respiratory Rate 20 Blood Pressure 165/74 H Pulse Oximetry 98 10/12/18 02:00 10/12/18 03:00 10/12/18 03:45 Temperature 98.1 F Pulse Rate 93 H 90 96 H Respiratory Rate 17 Blood Pressure 203/83 H Pulse Oximetry 97 10/12/18 04:00 10/12/18 04:07 10/12/18 04:18 Temperature Pulse Rate 92 H 87 Respiratory Rate 16 Blood Pressure 168/77 H Pulse Oximetry 10/12/18 05:00 10/12/18 06:00 10/12/18 07:00 Temperature Pulse Rate 100 H 97 H 99 H Respiratory Rate Blood Pressure Pulse Oximetry 10/12/18 08:00 10/12/18 09:00 10/12/18 09:03 Temperature 98.2 F Pulse Rate 94 H 96 H Respiratory Rate 20 Blood Pressure 206/75 H Pulse Oximetry 94 L 100 10/12/18 09:17 10/12/18 10:00 10/12/18 11:00 Temperature Pulse Rate 90 98 H Respiratory Rate Blood Pressure Pulse Oximetry 96 10/12/18 11:10 10/12/18 12:00 10/12/18 13:00 Temperature 98.4 F 98.4 F Pulse Rate 98 H 92 H 96 H Respiratory Rate 20 18 Blood Pressure 184/91 H 175/79 H Pulse Oximetry 100 100 Intake & Output 10/11/18 10/12/18 10/12/18 18:59 06:59 18:59 Intake Total 960 / 960 1119.625 / 1119.625 Output Total 1850 / 1850 475 / 475 Balance -890 / -890 644.625 / 644.625 Weight 167.4 kg Intake: IV 1119.625 / 1119.625 KCl Inj 20 MEQ Sodium Chloride 1019.625 / 1019.625 23.4% Inj 38.5 MEQ In Sterile Water for Inj 1,000 ML @ 84 mls /hr IV.CONT .Q12H9M [facility] Rx#: [id number] Oral 960 / 960 Output: Urine 475 / 475 Stool 0 / 0 Urine Amount (Catheter) 1849 Indwelling Urethral Catheter 1849 Other: Date of Last Bowel Movement 10/10/18 10/11/18 10/05/18 00:05 Blood - Peripheral Aerobic Blood Culture - Final No growth in 5 days 10/05/18 00:05 Blood - Peripheral Anaerobic Blood Culture - Final No growth in 5 days 10/05/18 00:00 Blood - Peripheral Aerobic Blood Culture - Final No growth in 5 days 10/05/18 00:00 Blood - Peripheral Anaerobic Blood Culture - Final No growth in 5 days Lab - Hematology Results 10/11/18 04:27 WBC 9.1 RBC 3.18 L Hgb 10.2 L Hct 32.2 L MCV 101.1 H MCH 32.2 MCHC 31.8 L RDW 16.0 Plt Count 124 L MPV 12.0 H Prelim Diff (Auto) Slide review pending Neut % (Auto) 68.7 Lymph % (Auto) 16.4 [place] % (Auto) 11.4 H Eos % (Auto) 2.9 Baso % (Auto) 0.6 Neut # (Auto) 6.3 Lymph # (Auto) 1.5 [place] # (Auto) 1.0 H Eos # (Auto) 0.3 Baso # (Auto) 0.1 WBC Differential . Diff Scan Auto diff confirmed Differential Comment . Platelet Estimate Low L Platelet Morphology Enlarged H Lab - Chemistry Results 10/10/18 10/10/18 10/11/18 17:55 20:52 04:27 Sodium 149 H Potassium 4.5 Chloride 116 H Carbon Dioxide 26.0 Anion Gap 7 BUN 26 H Creatinine 1.73 H Estimated GFR 48 L POC Glucose 106 105 Random Glucose 99 Calcium 7.5 L Phosphorus 2.5 Magnesium 1.9 Total Bilirubin 0.4 AST 12 L ALT 7 L Alkaline Phosphatase 70 Total Protein 5.9 L Albumin 1.9 L 10/11/18 10/11/18 10/11/18 09:25 12:03 17:46 Sodium Potassium Chloride Carbon Dioxide Anion Gap BUN Creatinine Estimated GFR POC Glucose 82 93 98 Random Glucose Calcium Phosphorus Magnesium Total Bilirubin AST ALT Alkaline Phosphatase Total Protein Albumin 10/11/18 10/12/18 10/12/18 20:55 08:25 12:18 Sodium Potassium Chloride Carbon Dioxide Anion Gap BUN Creatinine Estimated GFR POC Glucose 96 111 H 92 Random Glucose Calcium Phosphorus Magnesium Total Bilirubin AST ALT Alkaline Phosphatase Total Protein Albumin Imaging: ITS Impressions Abdomen/Pelvis CT 10/04/18 15:12 CONCLUSION: 1. Mild interstitial prominence and airspace disease in the left lung base. 2. Mildly enlarged adrenal glands which may be hyperplastic. 3. No evidence of inflammatory bowel disease, biliary obstructive disease, hydronephrosis, suspicious mass or lymphadenopathy. Chest X-Ray 10/11/18 06:00 CONCLUSION: 1. Endotracheal tube and nasogastric tube no longer seen. 2. No change in bilateral pulmonary opacity left greater than right. Physical Exam: GENERAL: awake and alert, NAD SKIN: Warm and dry. Has bullous lesions in BUE, with dressing HEAD: [place] conjunctiva. Full EOM No scleral icterus. No injection or drainage. EARS, NOSE AND THROAT: Moist mucosa NECK: Neck is short and obese, supple CARDIOVASCULAR: Regular rate and rhythm. No murmurs, rubs or gallops heard RESPIRATORY: Coarse breath sounds bilaterally, decreased at the bases. ABDOMEN: Soft, obese, not tender, not distended. Bowel sounds present. EXTREMITIES: No clubbing, cyanosis. Has chronic skin changes in both LE, tree bark appearance of skin, with clean superficial ulcers. Intact dressings to UE NEUROLOGICAL: Non-focal PSYCHIATRIC: Cooperative. LINE: No evidence of infection Assessment and Plan - Plan Impression Sepsis on admission, better - source? - came in with abdominal pain and diarrhea, CT no evidence of colitis, had recent Abx for toe infection, ?C diff, ?other etiology gastroenteritis - bilateral infiltrates, likely CHF; did not have PNA symptoms on presentation; CXR better - UA ok - has leg ulcers, but look ok, has chronic LE edema - better Bullous lesions BUE, etiology? Hypothermia, resolved Respiratory failure, extubated CHRISTAL, good UO Morbid obesity Recommendation Wound care Follow temps Monitor off Abx Monitor for S/Sxs on new infection Monitor progress
--- NOTE | 2018-10-12 16:11 | P.DIET ---
Nutritional Evaluation Type of nutrition evaluation: follow-up Nutrition consult regarding: Diet Evaluation Screening comments: Pt assessed per SCCM and ASPEN guidelines for critically ill pts with a BMI >50. Objective - Diagnosis Colitis, Hyperkalemia, AMS - Objective % IBW: 228 (IBW = 166#) Body Weight Used for Calculations: IBW (75.5 kg) Energy Needs - Lower Range (kCal/kg): 22 Energy Needs - Upper Range (kCal/kg): 25 Lower Limit kCal/kg (kCals): 1,660 Upper Limit kCal/kg (kCals): 1,888 Lower Limit Protein Factor (Grams per Kg): 1.5 Upper Limit Protein Factor (Grams per Kg): 2.0 Lower Protein Needs (Protein): 113 Upper Protein Needs (Protein): 151 Dietitian Reviewed in Medical Record: Curent medications, Intake & Output, Labs , Medical history, Tube feeding Diet Order: Cardiac + DM 2000 ADA Oral Diet Intake Amount: Good 75-90% Wound Care Note: R buttocks: pressure ulcer Objective Comments: PMH: CHF, COPD, DM, HTN, lymphodema Labs: BUN 26, Cr 1.73, GFR 48, Ca+ 7.5 Assessment Assessment: Pt TF d/c on 10/10, now on cardiac + DM 2000 ADA diet. Pt has a variable PO intake and normally eats 50-100% of meals on avrg. Will assess pts nutritional needs for a PO supplement as necessary. ST recs noted. Continue to monitor PO intake. Labs noted, dietitian following. Recommendations: 1. Will assess pts nutritional needs for a PO supplement as necessary. 2. Continue to monitor PO intake 3. Dietitian following Dietitian to Monitor: Lab values, Intake & Output, Diet tolerance, Weight change , PO Intake, Medical course
--- NOTE | 2018-10-12 17:09 | P.CONNP ---
<Jay JaytonyAlana narvaez - Last Filed: 10/12/18 16:31> History of Present Illness Service: Nephrology Consult date: 10/12/18 Requesting Physician: Matti Enrique Reason for Consult: Uncontrolled HTN, Anasarca, chronic kidney disease, hyperkalemia on admissi Primary Care Provider: UNKNOWN History of Present Illness: Patient is a 68 year old male with a past medical history of hypertension, diabetes, hyperlipidemia, congestive heart failure, chronic obstructed pulmonary disease, and chronic kidney disease. Presented to the emergency room on the 10/04 with diarrhea and abdominal pain. He had acute kidney injury at the time with a creatinine of 2.01 and potassium level of 7.0. He went into respiratory distress and was intubated. He is now on 3 liters Nasal cannula. Nephrology is consulted for uncontrolled hypertension, chronic kidney disease, and anasarca. He is a patient at our office last seen in May and at that time his creatinine was 1.8. Creatinine today is at 1.7 on lasix 40 mg BID. Patient is noted to be hypertensive. He denies any shortness of breath, nausea , or vomiting. Has rectal bag with liquid stool and indwelling house catheter. PMFSH - History History Provided By: Medical Record - Medical / Surgical Hx Neg / Unobtainable Medical Problems Denied: Unable to Obtain - Medical History Medical History: Medical History (Last Reviewed 10/12/18 @ 08:12 by Rosa Elena Soliman) CHF (congestive heart failure) COPD (chronic obstructive pulmonary disease) Diabetes mellitus HTN (hypertension) Lymphedema Pressure ulcer Sleep apnea - Surgical History Surgical History: Surgical History (Last Reviewed 10/12/18 @ 08:12 by Rosa Elena Soliman) History of carpal tunnel surgery of right wrist - Tobacco History Second Hand Smoke Exposure: Yes Tobacco Use In Past 30 Days: Yes Smoking Status: Current every day smoker Tobacco Type: Cigarettes - Alcohol History How Often Do You Have a Drink Containing Alcohol: Never - Substance Use History Substance History: No History of Abuse - Travel History Recent Travel in the [place] Within the Last 8 Weeks: No Recent Travel Out of the Country Within the Last 8 Weeks: No - Immunization History Tetanus Immunization: >5 Years Hx Influenza Vaccine This Season: No Medications and Allergies Allergies Allergy/AdvReac Type Severity Reaction Status Date / Time No Known Allergies Allergy Verified 10/04/18 14:59 Home Medications Medication Instructions Recorded Confirmed Type albuterol sulfate [Ventolin HFA] 2 puff INHALATION DAILY 10/04/18 10/04/18 History amlodipine 5 mg PO DAILY 10/04/18 10/04/18 History budesonide-formoterol [Symbicort] 1 puff INHALATION BID 10/04/18 10/04/18 History furosemide [Lasix] 40 mg PO DAILY 10/04/18 10/04/18 History hydralazine 100 mg PO TID 10/04/18 10/04/18 History insulin glargine [Lantus Solostar 55 unit SUBCUT HS 10/04/18 10/04/18 History U-100 Insulin] lisinopril 20 mg PO DAILY 10/04/18 10/04/18 History metformin 1,000 mg PO DAILY 10/04/18 10/04/18 History metoprolol tartrate 100 mg PO QAM 10/04/18 10/04/18 History omeprazole 40 mg PO DAILY 10/04/18 10/04/18 History spironolactone 25 mg PO DAILY 10/04/18 10/04/18 History Active Medications: Active Medications Acetaminophen (Tylenol) 650 mg PO Q6H PRN PRN Reason: TEMPERATURE > 101 F Last Admin: 10/10/18 15:21 Dose: 650 mg Al Hydroxide/Mg Hydroxide (Milk Of Angelique Ruth) 30 ml PO Q12H PRN PRN Reason: Mild Constipation Albuterol (Duoneb Neb (Prn)) 1 ampul NEB Q2HR NEB PRN PRN Reason: WHEEZING Albuterol (Duoneb Neb (Marleny)) 1 ampul NEB Q6HR NEB MARLENY Last Admin: 10/12/18 15:18 Dose: Not Given Amlodipine Besylate (Norvasc) 5 mg PO DAILY MARLENY Last Admin: 10/12/18 12:23 Dose: 5 mg Bisacodyl (Dulcolax Supp) 10 mg RECTAL DAILY PRN PRN Reason: SEVERE CONSITIPATION Budesonide/Formoterol Fumarate (Symbicort 160/4.5 Mcg Inh) 1 puff INH BID MARLENY Last Admin: 10/12/18 08:27 Dose: 1 puff Dextrose (D50w Vial) 50 ml IV.PUSH UNSCH PRN PRN Reason: PER HYPOGLYCEMIA PROTOCOL Last Admin: 10/05/18 12:25 Dose: 50 ml Furosemide (Lasix Inj) 40 mg IV.PUSH BID [facility] Glucagon (Glucagon Inj) 1 mg OTHER PRN PRN PRN Reason: for Hypoglycemia Protocol Heparin Sodium (Porcine) (Heparin Inj) 5,000 units SQ Q8HR [facility] Last Admin: 10/12/18 15:51 Dose: 5,000 units Hydralazine HCl (Apresoline) 100 mg PO TID [facility] Last Admin: 10/12/18 12:22 Dose: 100 mg Hydralazine HCl (Apresoline Inj) 20 mg IV.PUSH Q4H PRN PRN Reason: SBP>160, DBP>90 Last Admin: 10/12/18 10:08 Dose: 20 mg Magnesium Sulfate 4 gm/ Sodium (Chloride) 100 mls @ 50 mls/hr IV.SIG UNSCH PRN PRN Reason: For Magnesium 0.9 - 1.1 mg/dL Magnesium Sulfate 2 gm/ Sodium (Chloride) 100 mls @ 50 mls/hr IV.SIG UNSCH PRN PRN Reason: For Magnesium 1.2 - 1.6 mg/dL Potassium Chloride (Kcl 20 Meq Premix Inj) 20 meq in 100 mls @ 50 mls/hr IV.SIG Q2H PRN PRN Reason: For Potassium 3.3 - 3.5 mEq/L Potassium Chloride (Kcl 40 Meq Premix Inj) 40 meq in 100 mls @ 25 mls/hr IV.SIG UNSCH PRN PRN Reason: For Potassium 3.3 - 3.5 mEq/L Potassium Chloride (Kcl 20 Meq Premix Inj) 20 meq in 100 mls @ 50 mls/hr IV.SIG Q2H PRN PRN Reason: For Potassium 2.8 - 3.2 mEq/L Potassium Phosphate 30 mmol/ (Sodium Chloride) 260 mls @ 42 mls/hr IV.SIG UNSCH PRN PRN Reason: SEE LABEL COMMENTS Sodium Phosphate 30 mmol/ (Sodium Chloride) 260 mls @ 42 mls/hr IV.SIG UNSCH PRN PRN Reason: For Phosphorus < 2.5 mg/dL Potassium Chloride (Kcl 40 Meq Premix Inj) 40 meq in 100 mls @ 25 mls/hr IV.SIG Q2H PRN PRN Reason: For Potassium 2.8 - 3.2 mEq/L Potassium Chloride 20 meq/Sodium Chloride 38.5 meq/Sterile Water 1,019.625 mls @ 84 mls/hr IV.CONT .Q12H9M [facility] Last Admin: 10/12/18 04:46 Dose: 84 mls/hr Insulin Human Regular (Novolin R Correctional Sugar Inj) 0 units SQ ACHS [facility]; Protocol Last Admin: 10/12/18 12:23 Dose: Not Given Lactic Acid (Lac-Hydrin 12% Lotion) 1 applicatio TOPICAL UNSCH PRN PRN Reason: DRY SKIN ON LEGS Last Admin: 10/06/18 11:45 Dose: 1 applicatio Lactulose (Lactulose Liq) 30 ml PO DAILY PRN PRN Reason: SEVERE CONSITIPATION Magnesium Oxide (Mag-Ox) 800 mg PO UNSCH PRN PRN Reason: For Magnesium 1.2 - 1.6 mg/dL Metoprolol Tartrate (Lopressor) 50 mg PO BID [facility] Last Admin: 10/12/18 10:34 Dose: 50 mg Morphine Sulfate (Morphine Inj) 2 mg IV.PUSH Q3H PRN PRN Reason: pain 5-1010 Last Admin: 10/12/18 15:50 Dose: 2 mg Pantoprazole Sodium (Protonix) 40 mg PO DAILY [facility] Last Admin: 10/12/18 08:26 Dose: 40 mg Potassium Bicarb/Potassium Chloride (K-Lyte Cl Eff) 50 meq PO UNSCH PRN PRN Reason: For Potassium 3.3 - 3.5 mEq/L Potassium Phosphate (K-Phos Original) 2,000 mg PO Q4H PRN PRN Reason: Phosphorus Less Than 2.5 mg/dL Last Admin: 10/07/18 11:10 Dose: 2,000 mg Potassium Phosphate (K-Phos Original) 2,000 mg PO UNSCH PRN PRN Reason: SEE LABEL COMMENTS Sennosides (Senokot) 17.2 mg PO Q12H PRN PRN Reason: Moderate Constipation Sodium Chloride (Ns Flush) 2 ml IV.FLUSH PRN PRN PRN Reason: FLUSH AFTER USING IV ACCESS Last Admin: 10/06/18 08:13 Dose: 2 ml Sodium Chloride (Ns Flush) 2 ml IV.FLUSH PRN PRN PRN Reason: FLUSH AFTER USING IV ACCESS Terbutaline Sulfate (Brethine Inj) 1 mg SQ UNSCH PRN PRN Reason: For Extravasation Exam Vital signs: Vital Signs 11/12/18 17:00 10/11/18 17:55 10/11/18 18:00 Temperature Pulse Rate 92 H 100 H 89 Respiratory Rate Blood Pressure 191/93 H Pulse Oximetry 95 94 L 96 10/11/18 19:00 10/11/18 20:00 10/11/18 20:10 Temperature 98.5 F Pulse Rate 100 H 100 H 97 H Respiratory Rate 18 Blood Pressure Pulse Oximetry 97 96 96 10/11/18 21:00 10/11/18 21:04 10/11/18 23:00 Temperature Pulse Rate 97 H 97 H 99 H Respiratory Rate Blood Pressure 141/78 H Pulse Oximetry 96 95 10/11/18 23:16 10/11/18 23:56 10/12/18 00:00 Temperature 98.4 F Pulse Rate 97 H 106 H Respiratory Rate 21 16 Blood Pressure 223/89 H Pulse Oximetry 98 10/12/18 00:07 10/12/18 01:00 10/12/18 02:00 Temperature 98.3 F Pulse Rate 100 H 95 H 93 H Respiratory Rate 20 Blood Pressure 165/74 H Pulse Oximetry 98 10/12/18 03:00 10/12/18 03:45 10/12/18 04:00 Temperature 98.1 F Pulse Rate 90 96 H 92 H Respiratory Rate 17 Blood Pressure 203/83 H Pulse Oximetry 97 10/12/18 04:07 10/12/18 04:18 10/12/18 05:00 Temperature Pulse Rate 87 100 H Respiratory Rate 16 Blood Pressure 168/77 H Pulse Oximetry 10/12/18 06:00 10/12/18 07:00 10/12/18 08:00 Temperature 98.2 F Pulse Rate 97 H 99 H 94 H Respiratory Rate 20 Blood Pressure 206/75 H Pulse Oximetry 94 L 10/12/18 09:00 10/12/18 09:03 10/12/18 09:17 Temperature Pulse Rate 96 H Respiratory Rate Blood Pressure Pulse Oximetry 100 96 10/12/18 10:00 10/12/18 11:00 10/12/18 11:10 Temperature 98.4 F Pulse Rate 90 98 H 98 H Respiratory Rate 20 Blood Pressure 184/91 H Pulse Oximetry 100 10/12/18 12:00 10/12/18 13:00 10/12/18 14:00 Temperature 98.4 F Pulse Rate 92 H 96 H 74 Respiratory Rate 18 Blood Pressure 175/79 H Pulse Oximetry 100 10/12/18 15:00 Temperature Pulse Rate 98 H Respiratory Rate Blood Pressure Pulse Oximetry Intake & Output 10/11/18 10/12/18 10/12/18 18:59 06:59 18:59 Intake Total 960 / 960 1119.625 / 1119.625 Output Total 185 / 0 475 / 475 Balance -890 / -890 644.625 / 644.625 Weight 167.4 kg Intake: IV 1119.625 / 1119.625 KCl Inj 20 MEQ Sodium Chloride 1019.625 / 1019.625 23.4% Inj 38.5 MEQ In Sterile Water for Inj 1,000 ML @ 84 mls /hr IV.CONT .Q12H9M [facility] Rx#: [id number] Oral 960 / 960 Output: Urine 475 / 475 Stool 0 / 0 Urine Amount (Catheter) 1849 Indwelling Urethral Catheter 1849 Other: Date of Last Bowel Movement 10/10/18 10/11/18 Narrative: GENERAL: Patient is well-developed male, not in distress. Alert./ SKIN: Warm and dry. No generalized rash. Multiple wounds on lower extremities and dressings on arms. NECK: Neck is short and obese, supple. No JVD. CARDIOVASCULAR: Regular rate and rhythm. No murmurs, rubs or gallops heard. RESPIRATORY: Decreased breath sounds appreciated. ABDOMEN: Soft, obese, mildly distended, nontender. Bowel sounds hypoactive. Rectal bag. GENITOURINARY: Indwelling house catheter. EXTREMITIES: No clubbing, cyanosis. Has anasarca. NEUROLOGICAL: Awake and alert. Moves upper and lower extremities. Results - Lab Results 10/11/18 04:27 10/11/18 04:27 Most recent lab results ABG pH 7.31 (7.380-7.420) L 10/09/18 14:45 ABG pCO2 56 mmHg (38-42) H* 10/09/18 14:45 ABG pO2 71 mmHg (61-120) 10/09/18 14:45 ABG HCO3 27 mmol/L (22-26) H 10/09/18 14:45 Calcium 7.5 mg/dL (8.5-10.1) L 10/11/18 04:27 Phosphorus 2.5 mg/dL (2.5-4.9) 10/11/18 04:27 Magnesium 1.9 mg/dL (1.5-2.5) 10/11/18 04:27 Assessment and Plan - Assessment (1) Chronic kidney disease Code(s): N18.9 - Chronic kidney disease, unspecified Status: Acute Plan: Chronic kidney disease stage 3 Patient is at baseline creatine of 1.7, and hyperkalemia at admission has resolved. Has generalized edema on lasix 40 mg BID, recommend to continue currently. Fluid restriction added. Avoid nephrotoxins. Maintain strict+O, keep indwelling House. Will follow urinary output and labs. Labs in AM (2) Hypertension Code(s): I10 - Essential (primary) hypertension Status: Acute Plan: Blood pressure elevated. Currently on metoprolol, hydralazine,and amlodipine. Will monitor. Amlodipine increased to BID. (3) Hypernatremia Code(s): E87.0 - Hyperosmolality and hypernatremia Status: Acute Plan: Sodium level at 149 Has been improving. Will monitor. (4) Anemia Code(s): D64.9 - Anemia, unspecified Status: Acute Plan: HGB at 10.2 will add anemia panel. <Urszula Quesada - Last Filed: 10/14/18 11:44> History of Present Illness Primary Care Provider: UNKNOWN [facility] - Medical History Medical History: Medical History (Last Reviewed 10/12/18 @ 08:12 by Rosa Elena Soliman) CHF (congestive heart failure) COPD (chronic obstructive pulmonary disease) Diabetes mellitus HTN (hypertension) Lymphedema Pressure ulcer Sleep apnea - Surgical History Surgical History: Surgical History (Last Reviewed 10/12/18 @ 08:12 by Rosa Elena Soliman) History of carpal tunnel surgery of right wrist Medications and Allergies Active Medications: Active Medications Acetaminophen (Tylenol) 650 mg PO Q6H PRN PRN Reason: TEMPERATURE > 101 F Last Admin: 10/10/18 15:21 Dose: 650 mg Al Hydroxide/Mg Hydroxide (Milk Of Magnesia Liq) 30 ml PO Q12H PRN PRN Reason: Mild Constipation Albuterol (Duoneb Neb (Prn)) 1 ampul NEB Q2HR NEB PRN PRN Reason: WHEEZING Albuterol (Duoneb Neb (Marleny)) 1 ampul NEB Q6HR NEB [facility] Last Admin: 10/14/18 09:11 Dose: Not Given Amlodipine Besylate (Norvasc) 5 mg PO BID [facility] Last Admin: 10/14/18 08:20 Dose: 5 mg Bisacodyl (Dulcolax Supp) 10 mg RECTAL DAILY PRN PRN Reason: SEVERE CONSITIPATION Budesonide/Formoterol Fumarate (Symbicort 160/4.5 Mcg Inh) 1 puff INH BID [facility] Last Admin: 10/14/18 08:21 Dose: 1 puff Dextrose (D50w Vial) 50 ml IV.PUSH UNSCH PRN PRN Reason: PER HYPOGLYCEMIA PROTOCOL Last Admin: 10/05/18 12:25 Dose: 50 ml Furosemide (Lasix Inj) 40 mg IV.PUSH BID [facility] Last Admin: 10/14/18 08:20 Dose: 40 mg Glucagon (Glucagon Inj) 1 mg OTHER PRN PRN PRN Reason: for Hypoglycemia Protocol Heparin Sodium (Porcine) (Heparin Inj) 5,000 units SQ Q8HR [facility] Last Admin: 10/14/18 05:59 Dose: 5,000 units Hydralazine HCl (Apresoline) 100 mg PO TID [facility] Last Admin: 10/14/18 08:20 Dose: 100 mg Hydralazine HCl (Apresoline Inj) 20 mg IV.PUSH Q4H PRN PRN Reason: SBP>160, DBP>90 Last Admin: 10/13/18 14:11 Dose: 20 mg Insulin Human Regular (Novolin R Correctional Sugar Inj) 0 units SQ ACHS [facility]; Protocol Last Admin: 10/14/18 08:26 Dose: Not Given Lactic Acid (Lac-Hydrin 12% Lotion) 1 applicatio TOPICAL UNSCH PRN PRN Reason: DRY SKIN ON LEGS Last Admin: 10/06/18 11:45 Dose: 1 applicatio Lactulose (Lactulose Liq) 30 ml PO DAILY PRN PRN Reason: SEVERE CONSITIPATION Metolazone (Zaroxolyn) 2.5 mg PO BID [facility] Last Admin: 10/14/18 08:20 Dose: 2.5 mg Metoprolol Tartrate (Lopressor) 50 mg PO BID [facility] Last Admin: 10/14/18 08:20 Dose: 50 mg Morphine Sulfate (Morphine Inj) 2 mg IV.PUSH Q3H PRN PRN Reason: BREAKTHROUGH PAIN Last Admin: 10/14/18 08:19 Dose: 2 mg Oxycodone/Acetaminophen (Percocet 7.5/325 Mg) 1 tab PO Q4H PRN PRN Reason: pain 3-10 Last Admin: 10/14/18 06:03 Dose: 1 tab Pantoprazole Sodium (Protonix) 40 mg PO DAILY MARLENY Last Admin: 10/14/18 08:20 Dose: 40 mg Sennosides (Senokot) 17.2 mg PO Q12H PRN PRN Reason: Moderate Constipation Sodium Chloride (Ns Flush) 2 ml IV.FLUSH PRN PRN PRN Reason: FLUSH AFTER USING IV ACCESS Last Admin: 10/06/18 08:13 Dose: 2 ml Sodium Chloride (Ns Flush) 2 ml IV.FLUSH PRN PRN PRN Reason: FLUSH AFTER USING IV ACCESS Terbutaline Sulfate (Brethine Inj) 1 mg SQ UNSCH PRN PRN Reason: For Extravasation Exam Vital signs: Vital Signs 10/13/18 12:00 10/13/18 13:00 10/13/18 14:00 Temperature Pulse Rate 80 75 73 Respiratory Rate Blood Pressure 211/89 H Pulse Oximetry 10/13/18 15:00 10/13/18 15:36 10/13/18 16:00 Temperature 97.9 F Pulse Rate 74 73 83 Respiratory Rate 20 Blood Pressure 146/67 H Pulse Oximetry 96 10/13/18 17:00 10/13/18 18:00 10/13/18 19:00 Temperature Pulse Rate 79 45 L 95 H Respiratory Rate Blood Pressure Pulse Oximetry 10/13/18 20:00 10/13/18 21:00 10/13/18 21:15 Temperature 98.3 F Pulse Rate 93 H 94 H Respiratory Rate 22 18 Blood Pressure 149/72 H Pulse Oximetry 96 10/13/18 22:00 10/13/18 23:00 10/14/18 00:00 Temperature 98.8 F Pulse Rate 90 97 H 84 Respiratory Rate 20 Blood Pressure 146/73 H Pulse Oximetry 93 L 10/14/18 01:00 10/14/18 02:00 10/14/18 03:00 Temperature Pulse Rate 72 79 83 Respiratory Rate Blood Pressure Pulse Oximetry 10/14/18 04:00 10/14/18 05:00 10/14/18 06:00 Temperature 98.4 F Pulse Rate 84 79 84 Respiratory Rate 20 Blood Pressure 151/73 H Pulse Oximetry 93 L 10/14/18 08:29 10/14/18 09:12 Temperature 98.8 F Pulse Rate 92 H Respiratory Rate 21 Blood Pressure 152/73 H Pulse Oximetry 92 L 93 L Intake & Output 10/13/18 10/14/18 10/14/18 18:59 06:59 18:59 Intake Total 2019 240 / 240 Output Total 2099 1800 / 1800 Balance -80 / -80 -1560 / -1560 Weight 166.7 kg Intake: IV 100 / 100 KCl Inj 20 MEQ Sodium Chloride 100 / 100 23.4% Inj 38.5 MEQ In Sterile Water for Inj 1,000 ML @ 84 mls /hr IV.CONT .Q12H9M [facility] Rx#: [id number] Oral 1920 / 1920 240 / 240 Output: Urine 500 / 500 1800 / 1800 Stool 50 / 50 Urine Amount (Catheter) 1550 / 1550 Indwelling Urethral Catheter 1550 / 1550 Other: Date of Last Bowel Movement 10/13/18 10/13/18 # Bowel Movements 0 Results - Lab Results 10/13/18 05:42 10/14/18 05:01 Most recent lab results ABG pH 7.31 (7.380-7.420) L 10/09/18 14:45 ABG pCO2 56 mmHg (38-42) H* 10/09/18 14:45 ABG pO2 71 mmHg (61-120) 10/09/18 14:45 ABG HCO3 27 mmol/L (22-26) H 10/09/18 14:45 Calcium 8.4 mg/dL (8.5-10.1) L 10/14/18 05:01 Phosphorus 2.5 mg/dL (2.5-4.9) 10/13/18 05:42 Magnesium 1.9 mg/dL (1.5-2.5) 10/11/18 04:27 Assessment and Plan - Assessment (1) Chronic kidney disease Code(s): N18.9 - Chronic kidney disease, unspecified Status: Acute Plan: Has chronic kidney disease and some CHRISTAL. Continue diuretics and try to keep in negative fluid balance. Follow the urine out put and BMP. (2) Hypertension Code(s): I10 - Essential (primary) hypertension Status: Acute (3) Hypernatremia Code(s): E87.0 - Hyperosmolality and hypernatremia Status: Acute (4) Anemia Code(s): D64.9 - Anemia, unspecified Status: Acute
[2018-10-12] MEDS: amLODIPine 5 MG Tablet PO SCH (21:24)
[2018-10-13] MEDS: Potassium Chloride Inj 20 MEQ, Sodium Chloride 23.4% Inj 38.5 MEQ in Water for Inj, Ste... IV.CONT SCH (04:37)
[2018-10-13] MEDS: Heparin - SQ 10,000 UNITS/ML Vial SQ SCH ×3 (05:36→23:22)
[2018-10-13] MEDS: Morphine Inj 4 MG/ML Vial IV.PUSH PRN ×2 (05:38→08:28)
[2018-10-13 06:08] LABS: Baso # (Auto) 0.1 th/mm3 (0.0-0.2); Baso % (Auto) 0.7 % (0.0-2.0); Eos # (Auto) 0.3 th/mm3 (0.0-0.4); Eos % (Auto) 3.9 % (0.0-4.0); Hematocrit 31.7 % (39.0-51.0); Hemoglobin 10.2 gm/dL (13.0-17.0); Lymph # (Auto) 1.7 th/mm3 (1.0-4.8); Lymph % (Auto) 21.9 % (9.0-44.0); Mean Corpuscular HGB Conc 32.1 % (32.0-36.0); Mean Corpuscular Hemoglobin 31.9 pg (27.0-34.0); Mean Corpuscular Volume 99.6 fL (80.0-100.0); Mean Platelet Volume 10.8 fL (7.0-11.0); Mono # (Auto) 0.8 th/mm3 (0.0-0.9); Mono % (Auto) 10.9 % (0.0-8.0); Neut # (Auto) 4.8 th/mm3 (1.8-7.7); Neut % (Auto) 62.6 % (16.0-70.0); Platelet Count 142 th/mm3 (150-450); Red Blood Count 3.18 mil/mm3 (4.50-5.90); Red Cell Distribution Width 15.2 % (11.6-17.2); White Blood Count 7.6 th/mm3 (4.0-11.0)
[2018-10-13 06:32] LABS: Albumin 2.1 g/dL (3.4-5.0); Calcium 8.2 mg/dL (8.5-10.1); Carbon Dioxide 27.3 meq/L (21.0-32.0); Potassium 4.4 meq/L (3.5-5.1)
[2018-10-13 06:33] LABS: Phosphorus 2.5 mg/dL (2.5-4.9)
[2018-10-13 06:36] LABS: % Iron Saturation 29.6 % (20-50)
[2018-10-13] MEDS: Insulin NovoLIN Regular Correctional Sugar Inj SQ SCH ×4 (08:27→20:37)
[2018-10-13] MEDS: amLODIPine 5 MG Tablet PO SCH ×2 (08:28→20:34)
[2018-10-13] MEDS: Metoprolol Tartrate 50 MG Tablet PO SCH ×2 (08:28→20:34)
[2018-10-13] MEDS: Budesonide-Formoterol 160/4.5 MCG 6 GM Inhaler INH SCH ×2 (08:29→20:36)
--- NOTE | 2018-10-13 11:27 | P.PNIM ---
Subjective Interval history: The patient was resting in bed. He still complained of generalized pain. Discussed with nursing at the bedside. The patient said he was having burning where he was receiving fluids. Physical Exam Vital signs: Vital Signs 10/12/18 12:00 10/12/18 13:00 10/12/18 14:00 Temperature 98.4 F Pulse Rate 92 H 96 H 74 Respiratory Rate 18 Blood Pressure 175/79 H Pulse Oximetry 100 10/12/18 15:00 10/12/18 16:00 10/12/18 17:00 Temperature Pulse Rate 98 H 84 82 Respiratory Rate Blood Pressure Pulse Oximetry 10/12/18 18:00 10/12/18 18:31 10/12/18 19:00 Temperature 98.3 F Pulse Rate 84 86 89 Respiratory Rate 18 Blood Pressure 148/74 H Pulse Oximetry 97 10/12/18 20:00 10/12/18 20:18 10/12/18 21:00 Temperature 98.6 F Pulse Rate 89 68 93 H Respiratory Rate 20 20 Blood Pressure 161/77 H Pulse Oximetry 97 93 L 10/12/18 22:00 10/12/18 23:00 10/13/18 00:00 Temperature 98.9 F Pulse Rate 81 90 82 Respiratory Rate 19 Blood Pressure 165/81 H Pulse Oximetry 97 10/13/18 01:00 10/13/18 02:00 10/13/18 03:00 Temperature Pulse Rate 78 77 81 Respiratory Rate Blood Pressure Pulse Oximetry 10/13/18 03:42 10/13/18 04:00 10/13/18 05:00 Temperature 98.1 F Pulse Rate 82 85 82 Respiratory Rate 20 20 Blood Pressure 150/76 H Pulse Oximetry 96 10/13/18 06:00 10/13/18 06:07 10/13/18 07:00 Temperature Pulse Rate 82 90 Respiratory Rate 16 Blood Pressure Pulse Oximetry 10/13/18 08:00 10/13/18 09:00 10/13/18 09:37 Temperature 97.9 F Pulse Rate 72 78 Respiratory Rate 20 Blood Pressure 194/86 H 163/86 H Pulse Oximetry 99 94 L 10/13/18 10:00 Temperature Pulse Rate 81 Respiratory Rate Blood Pressure Pulse Oximetry Intake & Output 10/12/18 10/13/18 10/13/18 18:59 06:59 18:59 Intake Total 1739.625 / 1739.625 359.625 / 359.625 Output Total 2200 / 2200 1200 / 1200 Balance -460.375 / -460.375 -840.375 / -840.375 Weight 166.1 kg Intake: IV 1019.625 / 1019.625 119.625 / 119.625 KCl Inj 20 MEQ Sodium Chloride 1019.625 / 1019.625 119.625 / 119.625 23.4% Inj 38.5 MEQ In Sterile Water for Inj 1,000 ML @ 84 mls /hr IV.CONT .Q12H9M [facility] Rx#: [id number] Oral 720 / 720 240 / 240 Output: Urine 1800 / 1800 Stool 400 / 400 Urine Amount (Catheter) 1200 / 1200 Indwelling Urethral Catheter 1200 / 1200 Other: Date of Last Bowel Movement 10/12/18 10/13/18 Narrative: GENERAL: Patient is a morbidly obese, well-developed male, not in distress. SKIN: Warm and dry. No generalized rash. HEAD: Atraumatic. Normocephalic. EYES: No scleral icterus. No injection or drainage. EARS, NOSE AND THROAT: Nose without bleeding or purulent nasal discharge. NECK: Neck is short and obese, supple CARDIOVASCULAR: Regular rate and rhythm. No murmurs, rubs or gallops heard. RESPIRATORY: Decreased breath sounds appreciated. ABDOMEN: Soft, obese, mildly distended, nontender. Bowel sounds hypoactive. EXTREMITIES: No clubbing, cyanosis. Has anasarca. NEUROLOGICAL: Awake and alert. Moves upper and lower extremities. - Urinary Catheter Management Indwelling Urethral Catheter Cath placed during this visit: yes Reason for continuing: Hourly intake/output Insertion date: 10/04/18 Insertion time: 21:39 Results - Labs CBC & Chem 7: 10/13/18 05:42 10/13/18 05:42 Laboratory Results - last 24 hr 10/12/18 10/12/18 10/12/18 12:18 17:45 20:35 WBC RBC Hgb Hct MCV MCH MCHC RDW Plt Count MPV Neut % (Auto) Lymph % (Auto) Deuel % (Auto) Eos % (Auto) Baso % (Auto) Neut # (Auto) Lymph # (Auto) Deuel # (Auto) Eos # (Auto) Baso # (Auto) WBC Differential Differential Comment Sodium Potassium Chloride Carbon Dioxide Anion Gap BUN Creatinine Estimated GFR POC Glucose 92 99 101 Random Glucose Calcium Phosphorus Iron TIBC % Saturation Ferritin Albumin 10/13/18 10/13/18 10/13/18 05:42 05:42 07:45 WBC 7.6 RBC 3.18 L Hgb 10.2 L Hct 31.7 L MCV 99.6 MCH 31.9 MCHC 32.1 RDW 15.2 Plt Count 142 L MPV 10.8 Neut % (Auto) 62.6 Lymph % (Auto) 21.9 Deuel % (Auto) 10.9 H Eos % (Auto) 3.9 Baso % (Auto) 0.7 Neut # (Auto) 4.8 Lymph # (Auto) 1.7 Deuel # (Auto) 0.8 Eos # (Auto) 0.3 Baso # (Auto) 0.1 WBC Differential . Differential Comment Auto diff final Sodium 145 Potassium 4.4 Chloride 111 H Carbon Dioxide 27.3 Anion Gap 7 BUN 26 H Creatinine 1.63 H Estimated GFR 51 L POC Glucose 101 Random Glucose 96 Calcium 8.2 L Phosphorus 2.5 Iron 51 L TIBC 172 L % Saturation 29.6 Ferritin 128 Albumin 2.1 L 10/13/18 11:11 WBC RBC Hgb Hct MCV MCH MCHC RDW Plt Count MPV Neut % (Auto) Lymph % (Auto) Deuel % (Auto) Eos % (Auto) Baso % (Auto) Neut # (Auto) Lymph # (Auto) Deuel # (Auto) Eos # (Auto) Baso # (Auto) WBC Differential Differential Comment Sodium Potassium Chloride Carbon Dioxide Anion Gap BUN Creatinine Estimated GFR POC Glucose 103 Random Glucose Calcium Phosphorus Iron TIBC % Saturation Ferritin Albumin Assessment and Plan - Plan Acute hypoxic and hypercarbic respiratory failure/Acute severe pulmonary edema Extubated 10/09/2018 tolerating well. -diuresis, breathing treatments, EzPAP q6, IS. -40 mg IV Lasix BID. -BiPAP as needed. -Pulmonary consult appreciated. -encourage ambulation. PT/OT. Acute congestive heart failure exacerbation/Hypotension 2D echo done February 2018 showed ejection fraction 50%. -D/c IVFs. -Forced diuresis with scheduled Lasix. -follow Is and Os. Accelerated HTN SBP over 200 at times. -continue hydralazine, amlodipine and Lopressor. Adjust as needed. -hydralazine IV as needed. -d/c IVFs. Acute kidney injury/Hyperkalemia S/p treatment of hyperkalemia. Creatinine improving. Nephrology consult appreciated. -Strict intake output, monitor and replete electrolytes, follow BUN creatinine. -nephrology following. Diarrhea/Bilateral lower extremity cellulitis/Blisters ID consult appreciated. Cultures negative. Antibiotics have been discontinued. -Continue wound care for blisters. DVT Prophylaxis: Heparin
--- NOTE | 2018-10-13 11:32 | P.PNNP ---
Subjective Interval history: Does not report any complaints. Denies shortness of breath, nausea, or vomiting. Has rectal bag for loose stools. <Alana Petty - Last Filed: 10/13/18 16:38> Physical Exam Vital signs: Vital Signs 10/12/18 12:00 10/12/18 13:00 10/12/18 14:00 Temperature 98.4 F Pulse Rate 92 H 96 H 74 Respiratory Rate 18 Blood Pressure 175/79 H Pulse Oximetry 100 10/12/18 15:00 10/12/18 16:00 10/12/18 17:00 Temperature Pulse Rate 98 H 84 82 Respiratory Rate Blood Pressure Pulse Oximetry 10/12/18 18:00 10/12/18 18:31 10/12/18 19:00 Temperature 98.3 F Pulse Rate 84 86 89 Respiratory Rate 18 Blood Pressure 148/74 H Pulse Oximetry 97 10/12/18 20:00 10/12/18 20:18 10/12/18 21:00 Temperature 98.6 F Pulse Rate 89 68 93 H Respiratory Rate 20 20 Blood Pressure 161/77 H Pulse Oximetry 97 93 L 10/12/18 22:00 10/12/18 23:00 10/13/18 00:00 Temperature 98.9 F Pulse Rate 81 90 82 Respiratory Rate 19 Blood Pressure 165/81 H Pulse Oximetry 97 10/13/18 01:00 10/13/18 02:00 10/13/18 03:00 Temperature Pulse Rate 78 77 81 Respiratory Rate Blood Pressure Pulse Oximetry 10/13/18 03:42 10/13/18 04:00 10/13/18 05:00 Temperature 98.1 F Pulse Rate 82 85 82 Respiratory Rate 20 20 Blood Pressure 150/76 H Pulse Oximetry 96 10/13/18 06:00 10/13/18 06:07 10/13/18 07:00 Temperature Pulse Rate 82 90 Respiratory Rate 16 Blood Pressure Pulse Oximetry 10/13/18 08:00 10/13/18 09:00 10/13/18 09:37 Temperature 97.9 F Pulse Rate 72 78 Respiratory Rate 20 Blood Pressure 194/86 H 163/86 H Pulse Oximetry 99 94 L 10/13/18 10:00 10/13/18 11:00 10/13/18 11:31 Temperature 98.2 F Pulse Rate 81 77 75 Respiratory Rate 18 Blood Pressure 157/81 H Pulse Oximetry 98 Intake & Output 10/12/18 10/13/18 10/13/18 18:59 06:59 18:59 Intake Total 1739.625 / 1739.625 359.625 / 359.625 Output Total 2200 / 2200 1200 / 1200 Balance -460.375 / -460.375 -840.375 / -840.375 Weight 166.1 kg Intake: IV 1019.625 / 1019.625 119.625 / 119.625 KCl Inj 20 MEQ Sodium Chloride 1019.625 / 1019.625 119.625 / 119.625 23.4% Inj 38.5 MEQ In Sterile Water for Inj 1,000 ML @ 84 mls /hr IV.CONT .Q12H9M [facility] Rx#: [id number] Oral 720 / 720 240 / 240 Output: Urine 1800 / 1800 Stool 400 / 400 Urine Amount (Catheter) 1200 / 1200 Indwelling Urethral Catheter 1200 / 1200 Other: Date of Last Bowel Movement 10/12/18 10/13/18 Narrative: GENERAL: Well-developed male, not in distress. SKIN: Warm and dry. No generalized rash. NECK: Neck is short and obese, supple. Negative JVD. CARDIOVASCULAR: Regular rate and rhythm. No murmurs, rubs or gallops heard. RESPIRATORY: Decreased breath sounds appreciated. ABDOMEN: Soft, obese, mildly distended, nontender. Bowel sounds hypoactive. EXTREMITIES: No clubbing, cyanosis. Has anasarca. NEUROLOGICAL: Awake and alert. Moves upper and lower extremities. - Urinary Catheter Management Indwelling Urethral Catheter Cath placed during this visit: yes Reason for continuing: Hourly intake/output Insertion date: 10/04/18 Insertion time: 21:39 <Alana Petty - Last Filed: 10/13/18 16:38> Vital signs: Vital Signs 10/13/18 12:00 10/13/18 13:00 10/13/18 14:00 Temperature Pulse Rate 80 75 73 Respiratory Rate Blood Pressure 211/89 H Pulse Oximetry 10/13/18 15:00 10/13/18 15:36 10/13/18 16:00 Temperature 97.9 F Pulse Rate 74 73 83 Respiratory Rate 20 Blood Pressure 146/67 H Pulse Oximetry 96 10/13/18 17:00 10/13/18 18:00 10/13/18 19:00 Temperature Pulse Rate 79 45 L 95 H Respiratory Rate Blood Pressure Pulse Oximetry 10/13/18 20:00 10/13/18 21:00 10/13/18 21:15 Temperature 98.3 F Pulse Rate 93 H 94 H Respiratory Rate 22 18 Blood Pressure 149/72 H Pulse Oximetry 96 10/13/18 22:00 10/13/18 23:00 10/14/18 00:00 Temperature 98.8 F Pulse Rate 90 97 H 84 Respiratory Rate 20 Blood Pressure 146/73 H Pulse Oximetry 93 L 10/14/18 01:00 10/14/18 02:00 10/14/18 03:00 Temperature Pulse Rate 72 79 83 Respiratory Rate Blood Pressure Pulse Oximetry 10/14/18 04:00 10/14/18 05:00 10/14/18 06:00 Temperature 98.4 F Pulse Rate 84 79 84 Respiratory Rate 20 Blood Pressure 151/73 H Pulse Oximetry 93 L 10/14/18 08:29 10/14/18 09:12 Temperature 98.8 F Pulse Rate 92 H Respiratory Rate 21 Blood Pressure 152/73 H Pulse Oximetry 92 L 93 L Intake & Output 10/13/18 10/14/18 10/14/18 18:59 06:59 18:59 Intake Total 2019 / 2019 240 / 240 Output Total 2100 / 2099 1800 / 1800 Balance -80 / -80 -1560 / -1560 Weight 166.7 kg Intake: IV 100 / 100 KCl Inj 20 MEQ Sodium Chloride 100 / 100 23.4% Inj 38.5 MEQ In Sterile Water for Inj 1,000 ML @ 84 mls /hr IV.CONT .Q12H9M [facility] Rx#: [id number] Oral 1920 / 1920 240 / 240 Output: Urine 500 / 500 1800 / 1800 Stool 50 / 50 Urine Amount (Catheter) 1550 / 1550 Indwelling Urethral Catheter 1550 / 1550 Other: Date of Last Bowel Movement 10/13/18 10/13/18 # Bowel Movements 0 - Urinary Catheter Management Indwelling Urethral Catheter Cath placed during this visit: no <Urszula Quesada - Last Filed: 10/14/18 11:47> Assessment and Plan - Assessment (1) Chronic kidney disease Code(s): N18.9 - Chronic kidney disease, unspecified Status: Acute Plan: Chronic kidney disease stage 3. Patient is at baseline creatine of 1.7, and hyperkalemia at admission has resolved. Creatinine 1.63 today. Has generalized edema on lasix 40 mg BID, recommend to continue, metolazone 2.5 mg BID added. Continue fluid restriction. Avoid nephrotoxins. Maintain strict+O, keep indwelling Foster. Will follow urinary output and labs. (2) Hypertension Code(s): I10 - Essential (primary) hypertension Status: Acute Plan: Blood pressure labile. Currently on metoprolol, hydralazine,and amlodipine. Will monitor. Metoprolol can be increased as needed. (3) Hypernatremia Code(s): E87.0 - Hyperosmolality and hypernatremia Status: Acute Plan: Has been improved at 145 today Will monitor. (4) Anemia Code(s): D64.9 - Anemia, unspecified Status: Acute Plan: HGB at 10.2, iron sat adequate Will monitor <Alana Petty - Last Filed: 10/13/18 16:38> - Assessment (1) Chronic kidney disease Code(s): N18.9 - Chronic kidney disease, unspecified Status: Acute Plan: Patient seen and examined, agree with above. Creatinine is stable. Continue diuretics, add metolazone. (2) Hypertension Code(s): I10 - Essential (primary) hypertension Status: Acute (3) Hypernatremia Code(s): E87.0 - Hyperosmolality and hypernatremia Status: Acute (4) Anemia Code(s): D64.9 - Anemia, unspecified Status: Acute <Urszula Quesada - Last Filed: 10/14/18 11:47>
[2018-10-13] MEDS: hydrALAZINE HCl Inj 20 MG/ML Vial IV.PUSH PRN (14:11)
--- NOTE | 2018-10-13 19:11 | P.PNPL ---
Subjective Interval history: 68 YOAA male with COPD, RF, s/p extubation. Breathing better Mild wheezing Denies sob No fever Physical Exam Vital signs: Vital Signs 10/12/18 20:00 10/12/18 20:18 10/12/18 21:00 Temperature 98.6 F Pulse Rate 89 68 93 H Respiratory Rate 20 20 Blood Pressure 161/77 H Pulse Oximetry 97 93 L 10/12/18 22:00 10/12/18 23:00 10/13/18 00:00 Temperature 98.9 F Pulse Rate 81 90 82 Respiratory Rate 19 Blood Pressure 165/81 H Pulse Oximetry 97 10/13/18 01:00 10/13/18 02:00 10/13/18 03:00 Temperature Pulse Rate 78 77 81 Respiratory Rate Blood Pressure Pulse Oximetry 10/13/18 03:42 10/13/18 04:00 10/13/18 05:00 Temperature 98.1 F Pulse Rate 82 85 82 Respiratory Rate 20 20 Blood Pressure 150/76 H Pulse Oximetry 96 10/13/18 06:00 10/13/18 06:07 10/13/18 07:00 Temperature Pulse Rate 82 90 Respiratory Rate 16 Blood Pressure Pulse Oximetry 10/13/18 08:00 10/13/18 09:00 10/13/18 09:37 Temperature 97.9 F Pulse Rate 72 78 Respiratory Rate 20 Blood Pressure 194/86 H 163/86 H Pulse Oximetry 99 94 L 10/13/18 10:00 10/13/18 11:00 10/13/18 11:31 Temperature 98.2 F Pulse Rate 81 77 75 Respiratory Rate 18 Blood Pressure 157/81 H Pulse Oximetry 98 10/13/18 12:00 10/13/18 13:00 10/13/18 14:00 Temperature Pulse Rate 80 75 73 Respiratory Rate Blood Pressure 211/89 H Pulse Oximetry 10/13/18 15:00 10/13/18 15:36 10/13/18 16:00 Temperature 97.9 F Pulse Rate 74 73 83 Respiratory Rate 20 Blood Pressure 146/67 H Pulse Oximetry 96 10/13/18 17:00 10/13/18 18:00 Temperature Pulse Rate 79 45 L Respiratory Rate Blood Pressure Pulse Oximetry Intake & Output 10/13/18 10/13/18 10/14/18 06:59 18:59 06:59 Intake Total 359.625 / 607.734 0441 / 2020 Output Total 1200 / 1200 2099 / 2099 Balance -840.375 / -840.375 -80 / -80 Weight 166.1 kg Intake: IV 119.625 / 119.625 100 / 100 KCl Inj 20 MEQ Sodium Chloride 119.625 / 119.625 100 / 100 23.4% Inj 38.5 MEQ In Sterile Water for Inj 1,000 ML @ 84 mls /hr IV.CONT .Q12H9M [facility] Rx#: [id number] Oral 240 / 240 1920 / 1920 Output: Urine 500 / 500 Stool 50 / 50 Urine Amount (Catheter) 1200 / 1200 1550 / 1550 Indwelling Urethral Catheter 1200 / 1200 1550 / 1550 Other: Date of Last Bowel Movement 10/12/18 10/13/18 # Bowel Movements 0 GENERAL: Elderly obese Aa male, NAD SKIN: Warm and dry. HEAD: Normocephalic. EYES: No scleral icterus. No injection or drainage. NECK: Supple, trachea midline. No JVD or lymphadenopathy. CARDIOVASCULAR: Regular rate and rhythm without murmurs, gallops, or rubs. RESPIRATORY: Breath sounds equal bilaterally. No accessory muscle use. GASTROINTESTINAL: Abdomen soft, non-tender, nondistended. MUSCULOSKELETAL: No cyanosis, or edema. BACK: Nontender without obvious deformity. No CVA tenderness. - Urinary Catheter Management Indwelling Urethral Catheter Cath placed during this visit: yes Reason for continuing: Hourly intake/output Insertion date: 10/04/18 Insertion time: 21:39 Assessment and Plan - Plan IMPRESSION: 1. Chronic obstructive pulmonary disease. 2. Obstructive sleep apnea. 3. Status post respirator. 4. Chronic kidney disease. 5. Hypertension. 6. Diabetes mellitus. PLAN: Aerosol nebs Symbicort 2 puffs bid Heparin 5000 IU q 12 hrs Supplement 02 Monitor renal functions PFT
[2018-10-14 05:53] LABS: Calcium 8.4 mg/dL (8.5-10.1); Potassium 4.3 meq/L (3.5-5.1)
[2018-10-14] MEDS: Heparin - SQ 10,000 UNITS/ML Vial SQ SCH ×3 (05:59→23:05)
[2018-10-14] MEDS: Morphine Inj 4 MG/ML Vial IV.PUSH PRN ×3 (08:19→23:05)
[2018-10-14] MEDS: amLODIPine 5 MG Tablet PO SCH ×2 (08:20→20:28)
[2018-10-14] MEDS: Metoprolol Tartrate 50 MG Tablet PO SCH ×2 (08:20→20:28)
[2018-10-14] MEDS: Budesonide-Formoterol 160/4.5 MCG 6 GM Inhaler INH SCH ×2 (08:21→20:29)
[2018-10-14] MEDS: Insulin NovoLIN Regular Correctional Sugar Inj SQ SCH ×4 (08:26→20:37)
--- NOTE | 2018-10-14 09:18 | P.PNNP ---
Subjective Interval history: Resting comfortably. Denies shortness of breath, chest pain, nausea, or vomiting. Creatinine 1.62 with good urinary output. <Alana Petty - Last Filed: 10/14/18 09:10> Physical Exam Vital signs: Vital Signs 10/13/18 09:37 10/13/18 10:00 10/13/18 11:00 Temperature Pulse Rate 81 77 Respiratory Rate Blood Pressure Pulse Oximetry 94 L 10/13/18 11:31 10/13/18 12:00 10/13/18 13:00 Temperature 98.2 F Pulse Rate 75 80 75 Respiratory Rate 18 Blood Pressure 157/81 H Pulse Oximetry 98 10/13/18 14:00 10/13/18 15:00 10/13/18 15:36 Temperature 97.9 F Pulse Rate 73 74 73 Respiratory Rate 20 Blood Pressure 211/89 H 146/67 H Pulse Oximetry 96 10/13/18 16:00 10/13/18 17:00 10/13/18 18:00 Temperature Pulse Rate 83 79 45 L Respiratory Rate Blood Pressure Pulse Oximetry 10/13/18 19:00 10/13/18 20:00 10/13/18 21:00 Temperature 98.3 F Pulse Rate 95 H 93 H 94 H Respiratory Rate 22 Blood Pressure 149/72 H Pulse Oximetry 96 10/13/18 21:15 10/13/18 22:00 10/13/18 23:00 Temperature Pulse Rate 90 97 H Respiratory Rate 18 Blood Pressure Pulse Oximetry 10/14/18 00:00 10/14/18 01:00 10/14/18 02:00 Temperature 98.8 F Pulse Rate 84 72 79 Respiratory Rate 20 Blood Pressure 146/73 H Pulse Oximetry 93 L 10/14/18 03:00 10/14/18 04:00 10/14/18 05:00 Temperature 98.4 F Pulse Rate 83 84 79 Respiratory Rate 20 Blood Pressure 151/73 H Pulse Oximetry 93 L 10/14/18 06:00 10/14/18 08:29 Temperature 98.8 F Pulse Rate 84 92 H Respiratory Rate 21 Blood Pressure 152/73 H Pulse Oximetry 92 L Intake & Output 10/13/18 10/14/18 10/14/18 18:59 06:59 18:59 Intake Total 2019 / 2019 240 / 240 Output Total 2099 / 2099 1800 / 1800 Balance -80 / -80 -1560 / -1560 Weight 166.7 kg Intake: IV 100 / 100 KCl Inj 20 MEQ Sodium Chloride 100 / 100 23.4% Inj 38.5 MEQ In Sterile Water for Inj 1,000 ML @ 84 mls /hr IV.CONT .Q12H9M [facility] Rx#: [id number] Oral 1920 / 1920 240 / 240 Output: Urine 500 / 500 1800 / 1800 Stool 50 / 50 Urine Amount (Catheter) 1550 / 1550 Indwelling Urethral Catheter 1550 / 1550 Other: Date of Last Bowel Movement 10/13/18 10/13/18 # Bowel Movements 0 Narrative: GENERAL: Well-developed male, not in distress. SKIN: Warm and dry. No generalized rash. NECK: Neck is short and obese, supple. Negative JVD. CARDIOVASCULAR: Regular rate and rhythm. No murmurs, rubs or gallops heard. RESPIRATORY: Decreased breath sounds appreciated. ABDOMEN: Soft, obese, mildly distended, nontender. Bowel sounds hypoactive. EXTREMITIES: No clubbing, cyanosis. Has anasarca improving. NEUROLOGICAL: Awake and alert. Moves upper and lower extremities. - Urinary Catheter Management Indwelling Urethral Catheter Cath placed during this visit: yes Reason for continuing: Hourly intake/output Insertion date: 10/04/18 Insertion time: 21:39 <Alana Petty - Last Filed: 10/14/18 09:10> Vital signs: Vital Signs 10/18/18 00:00 10/18/18 04:00 10/18/18 08:00 Temperature 98.2 F 98.2 F 98.1 F Pulse Rate 78 70 78 Respiratory Rate 17 Blood Pressure 116/58 L 150/71 H 123/74 Pulse Oximetry 94 L 95 94 L 10/18/18 12:00 10/18/18 16:00 Temperature 98.0 F 98.3 F Pulse Rate 73 76 Respiratory Rate 19 Blood Pressure 144/67 H 127/61 Pulse Oximetry 94 L 96 Intake & Output 10/18/18 10/18/18 10/19/18 06:59 18:59 06:59 Intake Total 480 / 480 31108 / 52147 Output Total 1450 / 1450 1450 / 1450 Balance -970 / -970 8550 / 8550 Weight 158.3 kg Intake: Oral 480 / 480 01818 / 59267 Output: Urine 1450 / 1450 Urine Amount (Catheter) 1450 / 1450 Indwelling Urethral Catheter 1450 / 1450 Other: # Bowel Movements 1 - Urinary Catheter Management Indwelling Urethral Catheter Cath placed during this visit: no <Urszula Quesada - Last Filed: 10/18/18 20:50> Assessment and Plan - Assessment (1) Chronic kidney disease Code(s): N18.9 - Chronic kidney disease, unspecified Status: Acute Plan: Chronic kidney disease stage 3. Patient is at baseline creatine of 1.7, and hyperkalemia at admission has resolved. Creatinine 1.62 today. Continue lasix 40 mg BID and metolazone 2.5 mg BID. Continue fluid restriction. Avoid nephrotoxins. Maintain strict+O, keep indwelling Foster. Will follow urinary output and labs. (2) Hypertension Code(s): I10 - Essential (primary) hypertension Status: Acute Plan: Blood pressure better controlled. Currently on metoprolol, hydralazine,and amlodipine. (3) Hypernatremia Code(s): E87.0 - Hyperosmolality and hypernatremia Status: Acute Plan: Has been improved at 145 today Will monitor. (4) Anemia Code(s): D64.9 - Anemia, unspecified Status: Acute Plan: HGB stable Will monitor <Alana Petty - Last Filed: 10/14/18 09:10> - Assessment (1) Chronic kidney disease Code(s): N18.9 - Chronic kidney disease, unspecified Status: Acute Plan: Patient seen and examined, agree with above. Continue diuretics, Creatinine is stable. Told to restrict fluid and salt intake. (2) Hypertension Code(s): I10 - Essential (primary) hypertension Status: Acute (3) Hypernatremia Code(s): E87.0 - Hyperosmolality and hypernatremia Status: Acute (4) Anemia Code(s): D64.9 - Anemia, unspecified Status: Acute <Urszula Quesada - Last Filed: 10/18/18 20:50>
--- NOTE | 2018-10-14 17:06 | P.PNIM ---
Subjective Interval history: The patient was resting comfortably in bed. He said when he came into the hospital he had $60 in a pair of shorts and he would like that tracked down. He denies any shortness of breath. He thinks his swelling is getting better and his ulcers are getting better. Discussed with nursing. Physical Exam Vital signs: Vital Signs 10/13/18 18:00 10/13/18 19:00 10/13/18 20:00 Temperature 98.3 F Pulse Rate 45 L 95 H 93 H Respiratory Rate 22 Blood Pressure 149/72 H Pulse Oximetry 96 10/13/18 21:00 10/13/18 21:15 10/13/18 22:00 Temperature Pulse Rate 94 H 90 Respiratory Rate 18 Blood Pressure Pulse Oximetry 10/13/18 23:00 10/14/18 00:00 10/14/18 01:00 Temperature 98.8 F Pulse Rate 97 H 84 72 Respiratory Rate 20 Blood Pressure 146/73 H Pulse Oximetry 93 L 10/14/18 02:00 10/14/18 03:00 10/14/18 04:00 Temperature 98.4 F Pulse Rate 79 83 84 Respiratory Rate 20 Blood Pressure 151/73 H Pulse Oximetry 93 L 10/14/18 05:00 10/14/18 06:00 10/14/18 07:00 Temperature Pulse Rate 79 84 84 Respiratory Rate Blood Pressure Pulse Oximetry 10/14/18 08:00 10/14/18 08:29 10/14/18 09:00 Temperature 98.8 F Pulse Rate 82 92 H 88 Respiratory Rate 21 Blood Pressure 152/73 H Pulse Oximetry 92 L 10/14/18 09:12 10/14/18 10:00 10/14/18 11:00 Temperature Pulse Rate 82 80 Respiratory Rate Blood Pressure Pulse Oximetry 93 L 10/14/18 12:00 10/14/18 12:20 10/14/18 13:00 Temperature 98.5 F Pulse Rate 82 83 80 Respiratory Rate 20 Blood Pressure 152/71 H Pulse Oximetry 96 10/14/18 14:00 10/14/18 15:00 10/14/18 15:09 Temperature Pulse Rate 70 76 Respiratory Rate Blood Pressure Pulse Oximetry 96 10/14/18 16:00 10/14/18 16:09 Temperature 98.6 F Pulse Rate 76 85 Respiratory Rate 20 Blood Pressure 135/67 Pulse Oximetry 96 Intake & Output 10/13/18 10/14/18 10/14/18 18:59 06:59 18:59 Intake Total 2019 240 / 240 Output Total 2099 1800 / 1800 Balance -80 / -80 -1560 / -1560 Weight 166.7 kg Intake: IV 100 / 100 KCl Inj 20 MEQ Sodium Chloride 100 / 100 23.4% Inj 38.5 MEQ In Sterile Water for Inj 1,000 ML @ 84 mls /hr IV.CONT .Q12H9M [facility] Rx#: [id number] Oral 0 / 192 240 / 240 Output: Urine 500 / 500 1800 / 1800 Stool 50 / 50 Urine Amount (Catheter) 1550 / 1550 Indwelling Urethral Catheter 1550 / 1550 Other: Date of Last Bowel Movement 10/13/18 10/13/18 10/14/18 # Bowel Movements 0 Narrative: GENERAL: Well-developed male, not in distress. SKIN: Warm and dry. No generalized rash. NECK: Neck is short and obese, supple. Negative JVD. CARDIOVASCULAR: Regular rate and rhythm. No murmurs, rubs or gallops heard. RESPIRATORY: Decreased breath sounds appreciated. ABDOMEN: Soft, obese, mildly distended, nontender. Bowel sounds hypoactive. EXTREMITIES: No clubbing, cyanosis. Has anasarca. NEUROLOGICAL: Awake and alert. Moves upper and lower extremities. - Urinary Catheter Management Indwelling Urethral Catheter Cath placed during this visit: yes Reason for continuing: Other continuation reason Insertion date: 10/04/18 Insertion time: 21:39 Results - Labs CBC & Chem 7: 10/13/18 05:42 10/14/18 05:01 Laboratory Results - last 24 hr 10/13/18 10/14/18 10/14/18 19:28 05:01 08:26 Sodium 145 Potassium 4.3 Chloride 111 H Carbon Dioxide 29.0 Anion Gap 5 BUN 25 H Creatinine 1.62 H Estimated GFR 52 L POC Glucose 115 H 108 Random Glucose 91 Calcium 8.4 L 10/14/18 10/14/18 12:16 16:12 Sodium Potassium Chloride Carbon Dioxide Anion Gap BUN Creatinine Estimated GFR POC Glucose 106 111 H Random Glucose Calcium Assessment and Plan - Plan Acute hypoxic and hypercarbic respiratory failure/Acute severe pulmonary edema Extubated 10/09/2018 tolerating well. -diuresis, breathing treatments, EzPAP q6, IS. -continue diuresis. -BiPAP as needed. -Pulmonary consult appreciated. -encourage ambulation. PT/OT. Acute congestive heart failure exacerbation/Hypotension 2D echo done February 2018 showed ejection fraction 50%. -D/c IVFs. -Lasix and metolazone per nephrology. -follow Is and Os. Accelerated HTN SBP over 200 at times. Improved. -continue hydralazine, amlodipine and Lopressor. Adjust as needed. -hydralazine IV as needed. Acute kidney injury/Hyperkalemia S/p treatment of hyperkalemia. Creatinine improving. Nephrology consult appreciated. -Strict intake output, monitor and replete electrolytes, follow BUN creatinine. -nephrology following. Diarrhea/Bilateral lower extremity cellulitis/Blisters ID consult appreciated. Cultures negative. Antibiotics have been discontinued. -Continue wound care for blisters. DVT Prophylaxis: Heparin
--- NOTE | 2018-10-14 19:04 | P.PNPL ---
Subjective Interval history: 68 YOAA male with COPD, RF, s/p extubation. Breathing better Mild wheezing Denies sob No fever Appetite poor Swelling decreased Physical Exam Vital signs: Vital Signs 10/13/18 20:00 10/13/18 21:00 10/13/18 21:15 Temperature 98.3 F Pulse Rate 93 H 94 H Respiratory Rate 22 18 Blood Pressure 149/72 H Pulse Oximetry 96 10/13/18 22:00 10/13/18 23:00 10/14/18 00:00 Temperature 98.8 F Pulse Rate 90 97 H 84 Respiratory Rate 20 Blood Pressure 146/73 H Pulse Oximetry 93 L 10/14/18 01:00 10/14/18 02:00 10/14/18 03:00 Temperature Pulse Rate 72 79 83 Respiratory Rate Blood Pressure Pulse Oximetry 10/14/18 04:00 10/14/18 05:00 10/14/18 06:00 Temperature 98.4 F Pulse Rate 84 79 84 Respiratory Rate 20 Blood Pressure 151/73 H Pulse Oximetry 93 L 10/14/18 07:00 10/14/18 08:00 10/14/18 08:29 Temperature 98.8 F Pulse Rate 84 82 92 H Respiratory Rate 21 Blood Pressure 152/73 H Pulse Oximetry 92 L 10/14/18 09:00 10/14/18 09:12 10/14/18 10:00 Temperature Pulse Rate 88 82 Respiratory Rate Blood Pressure Pulse Oximetry 93 L 10/14/18 11:00 10/14/18 12:00 10/14/18 12:20 Temperature 98.5 F Pulse Rate 80 82 83 Respiratory Rate 20 Blood Pressure 152/71 H Pulse Oximetry 96 10/14/18 13:00 10/14/18 14:00 10/14/18 15:00 Temperature Pulse Rate 80 70 76 Respiratory Rate Blood Pressure Pulse Oximetry 10/14/18 15:09 10/14/18 16:00 10/14/18 16:09 Temperature 98.6 F Pulse Rate 76 85 Respiratory Rate 20 Blood Pressure 135/67 Pulse Oximetry 96 96 10/14/18 17:53 10/14/18 18:00 Temperature Pulse Rate 71 77 Respiratory Rate Blood Pressure Pulse Oximetry Intake & Output 10/14/18 10/14/18 10/15/18 06:59 18:59 06:59 Intake Total 240 / 240 720 / 720 Output Total 1800 / 1800 1675 / 1675 Balance -1560 / -1560 -955 / -955 Weight 166.7 kg Intake: Oral 240 / 240 720 / 720 Output: Urine 1800 / 1800 Stool 100 / 100 Urine Amount (Catheter) 157 / 1575 Indwelling Urethral Catheter 1574 / 1574 Other: Date of Last Bowel Movement 10/13/18 10/14/18 # Incontinent Bowel Movements 1 GENERAL: Obese AA male, NAD SKIN: Warm and dry. HEAD: Normocephalic. EYES: No scleral icterus. No injection or drainage. NECK: Supple, trachea midline. No JVD or lymphadenopathy. CARDIOVASCULAR: Regular rate and rhythm without murmurs, gallops, or rubs. RESPIRATORY: Breath sounds equal bilaterally. No accessory muscle use. GASTROINTESTINAL: Abdomen soft, non-tender, nondistended. MUSCULOSKELETAL: No cyanosis, or edema. BACK: Nontender without obvious deformity. No CVA tenderness. - Urinary Catheter Management Indwelling Urethral Catheter Cath placed during this visit: yes Reason for continuing: Other continuation reason Insertion date: 10/04/18 Insertion time: 21:39 Assessment and Plan - Plan IMPRESSION: 1. Chronic obstructive pulmonary disease. 2. Obstructive sleep apnea. 3. Status post respirator. 4. Chronic kidney disease. 5. Hypertension. 6. Diabetes mellitus. PLAN: Aerosol nebs Symbicort 2 puffs bid Heparin 5000 IU q 12 hrs Supplement 02 Monitor renal functions Metalozone 2.5 mg daily.
[2018-10-14 21:44] LABS: Calcium 8.5 mg/dL (8.5-10.1); Carbon Dioxide 27.6 meq/L (21.0-32.0); Magnesium 1.8 mg/dL (1.5-2.5)
[2018-10-15] MEDS: Heparin - SQ 10,000 UNITS/ML Vial SQ SCH ×3 (05:46→21:32)
[2018-10-15 06:45] LABS: Calcium 8.2 mg/dL (8.5-10.1); Carbon Dioxide 27.6 meq/L (21.0-32.0); Magnesium 1.7 mg/dL (1.5-2.5); Phosphorus 2.8 mg/dL (2.5-4.9); Potassium 4.1 meq/L (3.5-5.1)
[2018-10-15] MEDS: amLODIPine 5 MG Tablet PO SCH ×2 (08:54→20:39)
[2018-10-15] MEDS: Metoprolol Tartrate 50 MG Tablet PO SCH ×2 (08:54→20:39)
[2018-10-15] MEDS: Budesonide-Formoterol 160/4.5 MCG 6 GM Inhaler INH SCH ×2 (08:59→20:41)
[2018-10-15] MEDS: Insulin NovoLIN Regular Correctional Sugar Inj SQ SCH ×4 (08:59→20:43)
[2018-10-15] MEDS ORDERED: Mag Sulf 1 gm/100 ml Premix 100 ML IV.SIG ONE (09:29)
--- NOTE | 2018-10-15 11:24 | P.PNPL ---
Subjective Interval history: 68 YOAA male with COPD, RF, s/p extubation. Breathing better Denies sob No fever Appetite poor On 3LNC Physical Exam Vital signs: Vital Signs 10/14/18 12:00 10/14/18 12:20 10/14/18 13:00 Temperature 98.5 F Pulse Rate 82 83 80 Respiratory Rate 20 Blood Pressure 152/71 H Pulse Oximetry 96 10/14/18 14:00 10/14/18 15:00 10/14/18 15:09 Temperature Pulse Rate 70 76 Respiratory Rate Blood Pressure Pulse Oximetry 96 10/14/18 16:00 10/14/18 16:09 10/14/18 17:53 Temperature 98.6 F Pulse Rate 76 85 71 Respiratory Rate 20 Blood Pressure 135/67 Pulse Oximetry 96 10/14/18 18:00 10/14/18 19:06 10/14/18 20:00 Temperature Pulse Rate 77 82 74 Respiratory Rate Blood Pressure Pulse Oximetry 10/14/18 20:24 10/14/18 20:57 10/14/18 21:00 Temperature 98.7 F Pulse Rate 79 80 Respiratory Rate 20 18 Blood Pressure 151/73 H Pulse Oximetry 96 10/14/18 22:00 10/14/18 23:00 10/14/18 23:07 Temperature Pulse Rate 74 70 Respiratory Rate 18 Blood Pressure Pulse Oximetry 10/15/18 00:03 10/15/18 00:53 10/15/18 01:00 Temperature 98.4 F Pulse Rate 66 73 72 Respiratory Rate 20 Blood Pressure 137/70 Pulse Oximetry 94 L 10/15/18 02:00 10/15/18 04:00 10/15/18 07:00 Temperature 98 F Pulse Rate 70 79 71 Respiratory Rate 18 Blood Pressure 145/75 H Pulse Oximetry 93 L Intake & Output 10/14/18 10/15/18 10/15/18 18:59 06:59 18:59 Intake Total 720 / 720 300 / 300 Output Total 1675 / 1675 2149 / 2149 Balance -955 / -955 -1850 / -1850 Weight 166.6 kg Intake: Oral 720 / 720 300 / 300 Output: Stool 100 / 100 Urine Amount (Catheter) 1575 / 1575 2149 / 2149 Indwelling Urethral Catheter 1575 / 1575 2149 / 2149 Other: Date of Last Bowel Movement 10/14/18 10/14/18 # Incontinent Bowel Movements 1 GENERAL: Elderly AA male, Weak SKIN: Warm and dry. HEAD: Normocephalic. EYES: No scleral icterus. No injection or drainage. NECK: Supple, trachea midline. No JVD or lymphadenopathy. CARDIOVASCULAR: Regular rate and rhythm without murmurs, gallops, or rubs. RESPIRATORY: Breath sounds equal bilaterally. No accessory muscle use. GASTROINTESTINAL: Abdomen soft, non-tender, nondistended. MUSCULOSKELETAL: No cyanosis, + edema. BACK: Nontender without obvious deformity. No CVA tenderness. - Urinary Catheter Management Indwelling Urethral Catheter Cath placed during this visit: yes Reason for continuing: Other continuation reason Insertion date: 10/04/18 Insertion time: 21:39 Assessment and Plan - Plan IMPRESSION: 1. Chronic obstructive pulmonary disease. 2. Obstructive sleep apnea. 3. Status post respirator. 4. Chronic kidney disease. 5. Hypertension. 6. Diabetes mellitus. PLAN: Aerosol nebs Symbicort 2 puffs bid Heparin 5000 IU q 12 hrs Supplement 02 Monitor renal functions Metalozone 2.5 mg daily. Stable from Pulm standpoint
--- NOTE | 2018-10-15 12:54 | P.PNNP ---
Subjective Interval history: Patient is alert, now eating, with nasal cannula, not in distress. Physical Exam Vital signs: Vital Signs 10/14/18 13:00 10/14/18 14:00 10/14/18 15:00 Temperature Pulse Rate 80 70 76 Respiratory Rate Blood Pressure Pulse Oximetry 10/14/18 15:09 10/14/18 16:00 10/14/18 16:09 Temperature 98.6 F Pulse Rate 76 85 Respiratory Rate 20 Blood Pressure 135/67 Pulse Oximetry 96 96 10/14/18 17:53 10/14/18 18:00 10/14/18 19:06 Temperature Pulse Rate 71 77 82 Respiratory Rate Blood Pressure Pulse Oximetry 10/14/18 20:00 10/14/18 20:24 10/14/18 20:57 Temperature 98.7 F Pulse Rate 74 79 Respiratory Rate 20 18 Blood Pressure 151/73 H Pulse Oximetry 96 10/14/18 21:00 10/14/18 22:00 10/14/18 23:00 Temperature Pulse Rate 80 74 70 Respiratory Rate Blood Pressure Pulse Oximetry 10/14/18 23:07 10/15/18 00:03 10/15/18 00:53 Temperature 98.4 F Pulse Rate 66 73 Respiratory Rate 18 20 Blood Pressure 137/70 Pulse Oximetry 94 L 10/15/18 01:00 10/15/18 02:00 10/15/18 04:00 Temperature 98 F Pulse Rate 72 70 79 Respiratory Rate 18 Blood Pressure 145/75 H Pulse Oximetry 93 L 10/15/18 07:00 10/15/18 08:00 Temperature 97.7 F Pulse Rate 71 78 Respiratory Rate 18 Blood Pressure 138/72 Pulse Oximetry 92 L Intake & Output 10/14/18 10/15/18 10/15/18 18:59 06:59 18:59 Intake Total 720 / 720 300 / 300 Output Total 1675 / 1675 2150 / 2150 Balance -955 / -955 -1850 / -1850 Weight 166.6 kg Intake: Oral 720 / 720 300 / 300 Output: Stool 100 / 100 Urine Amount (Catheter) 1575 / 1575 2149 / 2149 Indwelling Urethral Catheter 1575 / 1575 2149 / 2149 Other: Date of Last Bowel Movement 10/14/18 10/14/18 # Incontinent Bowel Movements 1 Narrative: GENERAL: Well-developed male, not in distress. SKIN: Warm and dry. No generalized rash. NECK: Neck is short and obese, supple. Negative JVD. CARDIOVASCULAR: Regular rate and rhythm. No murmurs, rubs or gallops heard. RESPIRATORY: Decreased breath sounds appreciated. ABDOMEN: Soft, obese, mildly distended, nontender. Bowel sounds hypoactive. EXTREMITIES: No clubbing, cyanosis. Has anasarca. NEUROLOGICAL: Awake and alert. Moves upper and lower extremities. - Urinary Catheter Management Indwelling Urethral Catheter Cath placed during this visit: yes Reason for continuing: Other continuation reason Insertion date: 10/04/18 Insertion time: 21:39 Assessment and Plan - Assessment (1) Chronic kidney disease Code(s): N18.9 - Chronic kidney disease, unspecified Status: Acute Plan: Patient has anasarca and chronic kidney disease. Now the Creatinine is stable. Continue Lasix and metolazone. Follow the urine out put and BMP. (2) Hypertension Code(s): I10 - Essential (primary) hypertension Status: Acute Plan: Blood pressure better controlled. Currently on metoprolol, hydralazine,and amlodipine. (3) Hypernatremia Code(s): E87.0 - Hyperosmolality and hypernatremia Status: Acute Plan: Has been improved at 145 today Will monitor. (4) Anemia Code(s): D64.9 - Anemia, unspecified Status: Acute Plan: HGB stable Will monitor
--- NOTE | 2018-10-15 15:34 | P.PNIM ---
Subjective Interval history: The patient said that overall he was feeling better. He said that he felt his swelling was slightly decreased. He said he was willing to entertain going to rehab. Discussed with pulmonology and nursing. Physical Exam Vital signs: Vital Signs 10/14/18 16:00 10/14/18 16:09 10/14/18 17:53 Temperature 98.6 F Pulse Rate 76 85 71 Respiratory Rate 20 Blood Pressure 135/67 Pulse Oximetry 96 10/14/18 18:00 10/14/18 19:06 10/14/18 20:00 Temperature Pulse Rate 77 82 74 Respiratory Rate Blood Pressure Pulse Oximetry 10/14/18 20:24 10/14/18 20:57 10/14/18 21:00 Temperature 98.7 F Pulse Rate 79 80 Respiratory Rate 20 18 Blood Pressure 151/73 H Pulse Oximetry 96 10/14/18 22:00 10/14/18 23:00 10/14/18 23:07 Temperature Pulse Rate 74 70 Respiratory Rate 18 Blood Pressure Pulse Oximetry 10/15/18 00:03 10/15/18 00:53 10/15/18 01:00 Temperature 98.4 F Pulse Rate 66 73 72 Respiratory Rate 20 Blood Pressure 137/70 Pulse Oximetry 94 L 10/15/18 02:00 10/15/18 04:00 10/15/18 07:00 Temperature 98 F Pulse Rate 70 79 71 Respiratory Rate 18 Blood Pressure 145/75 H Pulse Oximetry 93 L 10/15/18 08:00 10/15/18 09:00 10/15/18 10:00 Temperature 97.7 F Pulse Rate 74 86 66 Respiratory Rate 18 Blood Pressure 138/72 Pulse Oximetry 92 L 10/15/18 11:00 10/15/18 12:00 10/15/18 13:00 Temperature 97.8 F Pulse Rate 69 72 84 Respiratory Rate 18 Blood Pressure 163/80 H Pulse Oximetry 95 10/15/18 14:00 Temperature Pulse Rate 80 Respiratory Rate Blood Pressure Pulse Oximetry Intake & Output 10/14/18 10/15/18 10/15/18 18:59 06:59 18:59 Intake Total 720 / 720 300 / 300 Output Total 1675 / 1675 2150 / 2150 Balance -955 / -955 -1850 / -1850 Weight 166.6 kg Intake: Oral 720 / 720 300 / 300 Output: Stool 100 / 100 Urine Amount (Catheter) 1575 / 1575 2149 Indwelling Urethral Catheter 1575 / 1575 2149 Other: Date of Last Bowel Movement 10/14/18 10/14/18 # Incontinent Bowel Movements 1 Narrative: GENERAL: Well-developed male, not in distress. SKIN: Warm and dry. No generalized rash. NECK: Neck is short and obese, supple. Negative JVD. CARDIOVASCULAR: Regular rate and rhythm. No murmurs, rubs or gallops heard. RESPIRATORY: Decreased breath sounds appreciated. ABDOMEN: Soft, obese, mildly distended, nontender. Bowel sounds hypoactive. EXTREMITIES: No clubbing, cyanosis. Has anasarca. NEUROLOGICAL: Awake and alert. Moves upper and lower extremities. - Urinary Catheter Management Indwelling Urethral Catheter Cath placed during this visit: yes Reason for continuing: Other continuation reason Insertion date: 10/04/18 Insertion time: 21:39 Results - Labs CBC & Chem 7: 10/13/18 05:42 10/15/18 05:05 Laboratory Results - last 24 hr 10/14/18 10/14/18 10/14/18 16:12 20:36 21:12 Sodium 144 Potassium 4.0 Chloride 108 H Carbon Dioxide 27.6 Anion Gap 8 BUN 26 H Creatinine 1.50 H Estimated GFR 57 L POC Glucose 111 H 92 Random Glucose 93 Calcium 8.5 Phosphorus Magnesium 1.8 10/15/18 10/15/18 10/15/18 05:05 08:58 13:03 Sodium 143 Potassium 4.1 Chloride 106 Carbon Dioxide 27.6 Anion Gap 9 BUN 25 H Creatinine 1.53 H Estimated GFR 55 L POC Glucose 118 H 114 H Random Glucose 90 Calcium 8.2 L Phosphorus 2.8 Magnesium 1.7 Assessment and Plan - Plan Acute hypoxic and hypercarbic respiratory failure/Acute severe pulmonary edema Extubated 10/09/2018 tolerating well. He is quite deconditioned. -diuresis, breathing treatments, EzPAP q6, IS. -continue diuresis. -BiPAP as needed. -Pulmonary consult appreciated. -encourage ambulation. PT/OT. Will likely need SNF placement. Acute congestive heart failure exacerbation/Hypotension 2D echo done February 2018 showed ejection fraction 50%. -Lasix IV and metolazone PO per nephrology. -follow Is and Os. Accelerated HTN SBP over 200 at times. Improved. -continue hydralazine, amlodipine and Lopressor. Adjust as needed. -hydralazine IV as needed. Acute kidney injury/Hyperkalemia S/p treatment of hyperkalemia. Creatinine remains stable. Nephrology consult appreciated. -Strict intake output, monitor and replete electrolytes, follow BUN creatinine. -nephrology following. Diarrhea/Bilateral lower extremity cellulitis/Blisters ID consult appreciated. Cultures negative. Antibiotics have been discontinued. -Continue wound care for blisters. DVT Prophylaxis: Heparin
[2018-10-15] MEDS: Morphine Inj 4 MG/ML Vial IV.PUSH PRN (23:36)
[2018-10-16] MEDS: Heparin - SQ 10,000 UNITS/ML Vial SQ SCH ×3 (05:14→21:36)
[2018-10-16] MEDS: Insulin NovoLIN Regular Correctional Sugar Inj SQ SCH ×4 (08:16→21:36)
[2018-10-16] MEDS: Metoprolol Tartrate 50 MG Tablet PO SCH ×2 (08:24→21:38)
[2018-10-16] MEDS: amLODIPine 5 MG Tablet PO SCH ×2 (08:24→21:39)
[2018-10-16] MEDS: Budesonide-Formoterol 160/4.5 MCG 6 GM Inhaler INH SCH ×2 (08:25→21:44)
--- NOTE | 2018-10-16 11:27 | P.PNNP ---
Subjective Interval history: Patient is alert, no SOB, with nasal cannula, not in distress. Physical Exam Vital signs: Vital Signs 10/15/18 12:00 10/15/18 13:00 10/15/18 14:00 Temperature 97.8 F Pulse Rate 72 84 80 Respiratory Rate 18 Blood Pressure 163/80 H Pulse Oximetry 95 10/15/18 15:00 10/15/18 16:00 10/15/18 17:00 Temperature 97.8 F Pulse Rate 78 81 77 Respiratory Rate 20 Blood Pressure 151/76 H Pulse Oximetry 95 10/15/18 18:00 10/15/18 19:00 10/15/18 20:00 Temperature 98.3 F Pulse Rate 78 77 85 Respiratory Rate 20 Blood Pressure 149/75 H Pulse Oximetry 94 L 10/15/18 21:00 10/15/18 22:00 10/15/18 23:00 Temperature Pulse Rate 81 83 80 Respiratory Rate Blood Pressure Pulse Oximetry 10/15/18 23:21 10/16/18 00:00 10/16/18 01:00 Temperature 98.1 F Pulse Rate 78 70 Respiratory Rate 18 Blood Pressure 138/77 Pulse Oximetry 96 95 10/16/18 02:00 10/16/18 03:00 10/16/18 04:00 Temperature 98 F Pulse Rate 79 82 86 Respiratory Rate 18 Blood Pressure 144/80 H Pulse Oximetry 95 10/16/18 05:00 10/16/18 06:00 10/16/18 08:18 Temperature Pulse Rate 83 84 Respiratory Rate Blood Pressure Pulse Oximetry 94 L Intake & Output 10/15/18 10/16/18 10/16/18 18:59 06:59 18:59 Intake Total 480 / 480 480 / 480 Output Total 2300 / 2300 100 / 100 Balance -1820 / -1820 380 / 380 Weight 1553 kg Intake: Oral 480 / 480 480 / 480 Output: Stool 200 / 200 100 / 100 Urine Amount (Catheter) 2099 Indwelling Urethral Catheter 2099 Other: Date of Last Bowel Movement 10/15/18 Narrative: GENERAL: Well-developed male, not in distress. SKIN: Warm and dry. No generalized rash. NECK: Neck is short and obese, supple. Negative JVD. CARDIOVASCULAR: Regular rate and rhythm. No murmurs, rubs or gallops heard. RESPIRATORY: Decreased breath sounds appreciated. ABDOMEN: Soft, obese, mildly distended, nontender. Bowel sounds hypoactive. EXTREMITIES: No clubbing, cyanosis. Has anasarca. NEUROLOGICAL: Awake and alert. Moves upper and lower extremities. - Urinary Catheter Management Indwelling Urethral Catheter Cath placed during this visit: yes Reason for continuing: Other continuation reason Insertion date: 10/04/18 Insertion time: 21:39 Assessment and Plan - Assessment (1) Chronic kidney disease Code(s): N18.9 - Chronic kidney disease, unspecified Status: Acute Plan: Patient has anasarca and chronic kidney disease. the Creatinine was 1.5 yesterday, no new BMP today. Continue Lasix and metolazone. Follow the urine out put and BMP. Avoid Nephrotoxins. Need to continue fluid restriction. (2) Hypertension Code(s): I10 - Essential (primary) hypertension Status: Acute Plan: Blood pressure better controlled. Currently on metoprolol, hydralazine,and amlodipine. (3) Hypernatremia Code(s): E87.0 - Hyperosmolality and hypernatremia Status: Acute Plan: Has been improved at 145 today Will monitor. (4) Anemia Code(s): D64.9 - Anemia, unspecified Status: Acute Plan: HGB stable Will monitor
[2018-10-16 12:54] LABS: Calcium 8.5 mg/dL (8.5-10.1); Carbon Dioxide 31.5 meq/L (21.0-32.0); Potassium 3.8 meq/L (3.5-5.1)
--- NOTE | 2018-10-16 13:13 | P.PNIM ---
Subjective Interval history: The patient was resting in bed. He said he was feeling better. He was still having a hard time moving his upper and lower extremities. He said he was breathing well. Discussed with nursing. Physical Exam Vital signs: Vital Signs 10/15/18 14:00 10/15/18 15:00 10/15/18 16:00 Temperature 97.8 F Pulse Rate 80 78 81 Respiratory Rate 20 Blood Pressure 151/76 H Pulse Oximetry 95 10/15/18 17:00 10/15/18 18:00 10/15/18 19:00 Temperature Pulse Rate 77 78 77 Respiratory Rate Blood Pressure Pulse Oximetry 10/15/18 20:00 10/15/18 21:00 10/15/18 22:00 Temperature 98.3 F Pulse Rate 85 81 83 Respiratory Rate 20 Blood Pressure 149/75 H Pulse Oximetry 94 L 10/15/18 23:00 10/15/18 23:21 10/16/18 00:00 Temperature 98.1 F Pulse Rate 80 78 Respiratory Rate 18 Blood Pressure 138/77 Pulse Oximetry 96 95 10/16/18 01:00 10/16/18 02:00 10/16/18 03:00 Temperature Pulse Rate 70 79 82 Respiratory Rate Blood Pressure Pulse Oximetry 10/16/18 04:00 10/16/18 05:00 10/16/18 06:00 Temperature 98 F Pulse Rate 86 83 84 Respiratory Rate 18 Blood Pressure 144/80 H Pulse Oximetry 95 10/16/18 08:18 Temperature Pulse Rate Respiratory Rate Blood Pressure Pulse Oximetry 94 L Intake & Output 10/15/18 10/16/18 10/16/18 18:59 06:59 18:59 Intake Total 480 / 480 480 / 480 Output Total 2300 / 2300 100 / 100 Balance -1820 / -1820 380 / 380 Weight 1553 kg Intake: Oral 480 / 480 480 / 480 Output: Stool 200 / 200 100 / 100 Urine Amount (Catheter) 2099 Indwelling Urethral Catheter 2099 Other: Date of Last Bowel Movement 10/15/18 Narrative: GENERAL: Well-developed male, not in distress. SKIN: Warm and dry. No generalized rash. NECK: Neck is short and obese, supple. Negative JVD. CARDIOVASCULAR: Regular rate and rhythm. No murmurs, rubs or gallops heard. RESPIRATORY: Decreased breath sounds appreciated. ABDOMEN: Soft, obese, mildly distended, nontender. Bowel sounds hypoactive. EXTREMITIES: No clubbing, cyanosis. Has anasarca. NEUROLOGICAL: Awake and alert. Moves upper and lower extremities. - Urinary Catheter Management Indwelling Urethral Catheter Cath placed during this visit: yes Reason for continuing: Other continuation reason Insertion date: 10/04/18 Insertion time: 21:39 Results - Labs CBC & Chem 7: 10/13/18 05:42 10/16/18 12:03 Laboratory Results - last 24 hr 10/15/18 10/15/18 10/15/18 13:03 17:13 20:42 Sodium Potassium Chloride Carbon Dioxide Anion Gap BUN Creatinine Estimated GFR POC Glucose 114 H 103 87 Random Glucose Calcium 10/16/18 10/16/18 10/16/18 08:16 11:56 12:03 Sodium 142 Potassium 3.8 Chloride 104 Carbon Dioxide 31.5 Anion Gap 7 BUN 25 H Creatinine 1.60 H Estimated GFR 53 L POC Glucose 93 101 Random Glucose 99 Calcium 8.5 Assessment and Plan - Plan Acute hypoxic and hypercarbic respiratory failure/Acute severe pulmonary edema Extubated 10/09/2018 tolerating well. He is quite deconditioned. -diuresis, breathing treatments, EzPAP q6, IS. -continue diuresis. -BiPAP as needed. -Pulmonary consult appreciated. -encourage ambulation. PT/OT seven days a week requested. Will need SNF placement. Case management following. Acute congestive heart failure exacerbation/Hypotension 2D echo done February 2018 showed ejection fraction 50%. -Lasix IV and metolazone PO per nephrology. -follow Is and Os. Accelerated HTN SBP over 200 at times. Improved. -continue hydralazine, amlodipine and Lopressor. Adjust as needed. -clonidine as needed. Acute kidney injury/Hyperkalemia S/p treatment of hyperkalemia. Creatinine remains stable. Nephrology consult appreciated. -Strict intake output, monitor and replete electrolytes, follow BUN creatinine. Stable. -nephrology following. Diarrhea/Bilateral lower extremity cellulitis/Blisters ID consult appreciated. Cultures negative. Antibiotics have been discontinued. -Continue wound care for blisters. DVT Prophylaxis: Heparin
[2018-10-17] MEDS: Heparin - SQ 10,000 UNITS/ML Vial SQ SCH ×3 (05:06→21:33)
[2018-10-17 05:58] LABS: Carbon Dioxide 33.3 meq/L (21.0-32.0); Magnesium 1.9 mg/dL (1.5-2.5); Potassium 3.8 meq/L (3.5-5.1)
[2018-10-17 05:59] LABS: Phosphorus 3.4 mg/dL (2.5-4.9)
[2018-10-17] MEDS: Insulin NovoLIN Regular Correctional Sugar Inj SQ SCH ×4 (08:23→21:33)
[2018-10-17] MEDS: Budesonide-Formoterol 160/4.5 MCG 6 GM Inhaler INH SCH ×2 (08:25→21:34)
[2018-10-17] MEDS: amLODIPine 5 MG Tablet PO SCH ×2 (08:26→21:32)
[2018-10-17] MEDS: Metoprolol Tartrate 50 MG Tablet PO SCH ×2 (08:26→21:32)
--- NOTE | 2018-10-17 08:54 | P.PN ---
Subjective Interval history: This is a pleasant 68 y/o Male admitted 10/04/18, to Intensive Care Unit with Colitis, VDRF, CHRISTAL, Morbid Obesity Intubated that day, on Pressors, Extubated 10/09. 10/17: Stable in his bedroom no nausea, vomit or diarrhea, Discussed with nurse Miss Brooke, found laying in bed sleeping. Physical Exam Vital signs: Vital Signs 10/16/18 12:00 10/16/18 15:00 10/16/18 15:01 Temperature 98.9 F Pulse Rate 81 81 75 Respiratory Rate 18 Blood Pressure 145/74 H Pulse Oximetry 97 10/16/18 19:55 10/16/18 20:00 10/16/18 23:00 Temperature 98.3 F Pulse Rate 78 82 81 Respiratory Rate 19 Blood Pressure 139/66 Pulse Oximetry 95 10/17/18 00:00 10/17/18 04:00 10/17/18 08:00 Temperature 98.3 F 98.2 F 97.5 F L Pulse Rate 78 72 71 Respiratory Rate Blood Pressure 129/82 125/76 132/81 Pulse Oximetry 94 L 95 94 L Intake & Output 10/16/18 10/17/18 10/17/18 18:59 06:59 18:59 Intake Total 720 / 720 480 / 480 Output Total 150 / 150 1200 / 1200 Balance 570 / 570 -720 / -720 Weight 158.3 kg Intake: Oral 720 / 720 480 / 480 Output: Stool 150 / 150 Urine Amount (Catheter) 1200 / 1200 Indwelling Urethral Catheter 1200 / 1200 Other: Date of Last Bowel Movement 10/16/18 10/16/18 Narrative: GENERAL: Morbid Obese patient in no acute distress. SKIN: Warm and dry. No generalized rash. NECK: Neck is short and obese, supple. Negative JVD. CARDIOVASCULAR: Regular rate and rhythm. No murmurs, rubs or gallops heard. RESPIRATORY: Decreased breath sounds appreciated. ABDOMEN: Soft, obese, mildly distended, nontender. Bowel sounds hypoactive. EXTREMITIES: No clubbing, cyanosis. Has anasarca. NEUROLOGICAL: Awake and alert. Moves upper and lower extremities. - Urinary Catheter Management Indwelling Urethral Catheter Cath placed during this visit: yes Reason for continuing: Other continuation reason Insertion date: 10/04/18 Insertion time: 21:39 Results - Labs CBC & Chem 7: 10/13/18 05:42 10/17/18 04:03 Laboratory Results - last 24 hr 10/16/18 10/16/18 10/16/18 11:56 12:03 17:47 Sodium 142 Potassium 3.8 Chloride 104 Carbon Dioxide 31.5 Anion Gap 7 BUN 25 H Creatinine 1.60 H Estimated GFR 53 L POC Glucose 101 98 Random Glucose 99 Calcium 8.5 Phosphorus Magnesium 10/16/18 10/17/18 10/17/18 21:32 04:03 07:29 Sodium 142 Potassium 3.8 Chloride 103 Carbon Dioxide 33.3 H Anion Gap 6 BUN 26 H Creatinine 1.51 H Estimated GFR 56 L POC Glucose 98 117 H Random Glucose 94 Calcium 8.0 L Phosphorus 3.4 Magnesium 1.9 - Imaging Abdomen/Pelvis CT 10/04/18 15:12 CONCLUSION: 1. Mild interstitial prominence and airspace disease in the left lung base. 2. Mildly enlarged adrenal glands which may be hyperplastic. 3. No evidence of inflammatory bowel disease, biliary obstructive disease, hydronephrosis, suspicious mass or lymphadenopathy. Chest X-Ray 10/11/18 06:00 CONCLUSION: 1. Endotracheal tube and nasogastric tube no longer seen. 2. No change in bilateral pulmonary opacity left greater than right. Assessment and Plan - Plan Acute hypoxic and hypercarbic respiratory failure/Acute severe pulmonary edema Extubated 10/09/2018 tolerating well. He is quite deconditioned. -diuresis, breathing treatments, EzPAP q6, IS. -continue diuresis. -BiPAP as needed. -Waste Collection Driver following, to continue Bronchodilator, Mucolytic and incentive spirometry. Metolazone 2.5 mg daily -encourage ambulation. PT/OT seven days a week requested. Will need SNF placement. Case management following. Acute congestive heart failure exacerbation/Hypotension 2D echo done February 2018 showed ejection fraction 50%. -Lasix IV and metolazone PO per nephrology. -follow Is and Os. HTN controlled. SBP over 200 at times. Improved. -continue hydralazine, amlodipine and Lopressor. Adjust as needed. -clonidine as needed. Chronic Kidney disease, Nephrology specialist following, patient has Anasarca continue Lasix and metolazone, following urine output. fluid restriction Diarrhea/Bilateral lower extremity cellulitis/Blisters ID consult appreciated. Cultures negative. Antibiotics have been discontinued. -Continue wound care for blisters. DVT Prophylaxis: Heparin Code Status: Full Code Discussed Condition With: Patient and nurse Miss Brooke Discharge Planning: Once cleared by specialists.
--- NOTE | 2018-10-17 09:32 | P.PNNP ---
Subjective Interval history: Resting comfortably with no complaints. Creatinine has remained stable with diuresis at 1.51 today. <Alana Petty - Last Filed: 10/17/18 09:28> Physical Exam Vital signs: Vital Signs 10/16/18 12:00 10/16/18 15:00 10/16/18 15:01 Temperature 98.9 F Pulse Rate 81 81 75 Respiratory Rate 18 Blood Pressure 145/74 H Pulse Oximetry 97 10/16/18 19:55 10/16/18 20:00 10/16/18 23:00 Temperature 98.3 F Pulse Rate 78 82 81 Respiratory Rate 19 Blood Pressure 139/66 Pulse Oximetry 95 10/17/18 00:00 10/17/18 04:00 10/17/18 08:00 Temperature 98.3 F 98.2 F 97.5 F L Pulse Rate 78 72 71 Respiratory Rate 19 19 18 Blood Pressure 129/82 125/76 132/81 Pulse Oximetry 94 L 95 94 L Intake & Output 10/16/18 10/17/18 10/17/18 18:59 06:59 18:59 Intake Total 720 / 720 480 / 480 Output Total 150 / 150 1200 / 1200 Balance 570 / 570 -720 / -720 Weight 158.3 kg Intake: Oral 720 / 720 480 / 480 Output: Stool 150 / 150 Urine Amount (Catheter) 1200 / 1200 Indwelling Urethral Catheter 1200 / 1200 Other: Date of Last Bowel Movement 10/16/18 10/16/18 Narrative: GENERAL: Well-developed male, not in distress. SKIN: Warm and dry. No generalized rash. NECK: Neck is short and obese, supple. Negative JVD. CARDIOVASCULAR: Regular rate and rhythm. No murmurs, rubs or gallops heard. RESPIRATORY: Decreased breath sounds appreciated. ABDOMEN: Soft, obese, mildly distended, nontender. Bowel sounds hypoactive. EXTREMITIES: No clubbing, cyanosis. Has anasarca, improving. NEUROLOGICAL: Awake and alert. Moves upper and lower extremities. - Urinary Catheter Management Indwelling Urethral Catheter Cath placed during this visit: yes Reason for continuing: Other continuation reason Insertion date: 10/04/18 Insertion time: 21:39 <Alana Petty - Last Filed: 10/17/18 09:28> Vital signs: Vital Signs 10/18/18 00:00 10/18/18 04:00 10/18/18 08:00 Temperature 98.2 F 98.2 F 98.1 F Pulse Rate 78 70 78 Respiratory Rate 17 Blood Pressure 116/58 L 150/71 H 123/74 Pulse Oximetry 94 L 95 94 L 10/18/18 12:00 10/18/18 16:00 Temperature 98.0 F 98.3 F Pulse Rate 73 76 Respiratory Rate Blood Pressure 144/67 H 127/61 Pulse Oximetry 94 L 96 Intake & Output 10/18/18 10/18/18 10/19/18 06:59 18:59 06:59 Intake Total 480 / 480 08181 / 49333 Output Total 1450 / 1450 1450 / 1450 Balance -970 / -970 8550 / 8550 Weight 158.3 kg Intake: Oral 480 / 480 68851 / 94125 Output: Urine 1450 / 1450 Urine Amount (Catheter) 1450 / 1450 Indwelling Urethral Catheter 1450 / 1450 Other: # Bowel Movements 1 - Urinary Catheter Management Indwelling Urethral Catheter Cath placed during this visit: no <Urszula Quesada - Last Filed: 10/18/18 21:22> Assessment and Plan - Assessment (1) Chronic kidney disease Code(s): N18.9 - Chronic kidney disease, unspecified Status: Acute Plan: Patient has anasarca and chronic kidney disease. Continue Lasix and metolazone, tolerating well. Continue fluid restriction. Follow the urine out put and BMP. Avoid Nephrotoxins. (2) Hypertension Code(s): I10 - Essential (primary) hypertension Status: Acute Plan: Blood pressure better controlled. Currently on metoprolol, hydralazine,and amlodipine. (3) Hypernatremia Code(s): E87.0 - Hyperosmolality and hypernatremia Status: Acute Plan: Resolved Will monitor. (4) Anemia Code(s): D64.9 - Anemia, unspecified Status: Acute Plan: HGB stable Will monitor <Alana Petty - Last Filed: 10/17/18 09:28> - Assessment (1) Chronic kidney disease Code(s): N18.9 - Chronic kidney disease, unspecified Status: Acute Plan: Patient seen and examined, agree with above. Continue Lasix and metolazone. Creatinine is stable. (2) Hypertension Code(s): I10 - Essential (primary) hypertension Status: Acute (3) Hypernatremia Code(s): E87.0 - Hyperosmolality and hypernatremia Status: Acute (4) Anemia Code(s): D64.9 - Anemia, unspecified Status: Acute <Urszula Quesada - Last Filed: 10/18/18 21:22>
[2018-10-17 11:52] LABS: Vitamin D 1,25-Dihydroxy 22 pg/mL (18-72)
[2018-10-18] MEDS: Heparin - SQ 10,000 UNITS/ML Vial SQ SCH ×2 (06:10→14:47)
[2018-10-18] MEDS: Insulin NovoLIN Regular Correctional Sugar Inj SQ SCH ×4 (08:30→20:20)
[2018-10-18] MEDS: amLODIPine 5 MG Tablet PO SCH ×2 (08:31→20:19)
[2018-10-18] MEDS: Metoprolol Tartrate 50 MG Tablet PO SCH ×2 (08:31→20:19)
[2018-10-18] MEDS: Budesonide-Formoterol 160/4.5 MCG 6 GM Inhaler INH SCH ×2 (08:32→20:21)
--- NOTE | 2018-10-18 09:28 | P.PN ---
Subjective Interval history: This is a pleasant 68 y/o Male admitted 10/04/18, to Intensive Care Unit with Colitis, VDRF, CHRISTAL, Morbid Obesity Intubated that day, on Pressors, Extubated 10/09. 10/17: Discussed with nurse Miss Brooke, found laying in bed sleeping. 10/18: Patient in bed, encourage ambulation, PT following, OT following, no nausea, vomit or diarrhea, not yet clear for discharge by Nephrology specialist. Physical Exam Vital signs: Vital Signs 10/17/18 12:00 10/17/18 16:00 10/17/18 20:00 Temperature 97.9 F 98.4 F 98.9 F Pulse Rate 68 78 83 Respiratory Rate 22 17 Blood Pressure 131/60 123/78 122/62 Pulse Oximetry 96 94 L 94 L 10/18/18 00:00 10/18/18 04:00 10/18/18 08:00 Temperature 98.2 F 98.2 F 98.1 F Pulse Rate 78 70 78 Respiratory Rate 17 Blood Pressure 116/58 L 150/71 H 123/74 Pulse Oximetry 94 L 95 94 L Intake & Output 10/17/18 10/18/18 10/18/18 18:59 06:59 18:59 Intake Total 1800 / 1800 480 / 480 Output Total 1750 / 1750 1450 / 1450 Balance 50 / 50 -970 / -970 Weight 158.3 kg Intake: Oral 1800 / 1800 480 / 480 Output: Urine Amount (Catheter) 1750 / 1750 1450 / 1450 Indwelling Urethral Catheter 1750 / 1750 1450 / 1450 Other: Date of Last Bowel Movement 10/16/18 Narrative: GENERAL: Morbid Obese patient in no acute distress. SKIN: Warm and dry. No generalized rash. NECK: Neck is short and obese, supple. Negative JVD. CARDIOVASCULAR: Regular rate and rhythm. No murmurs, rubs or gallops heard. RESPIRATORY: Decreased breath sounds appreciated. ABDOMEN: Soft, obese, mildly distended, nontender. Bowel sounds hypoactive. EXTREMITIES: No clubbing, cyanosis. Has anasarca. NEUROLOGICAL: Awake and alert. Moves upper and lower extremities. - Urinary Catheter Management Indwelling Urethral Catheter Cath placed during this visit: yes Reason for continuing: Other continuation reason Insertion date: 10/04/18 Insertion time: 21:39 Results - Labs CBC & Chem 7: 10/13/18 05:42 10/17/18 04:03 Laboratory Results - last 24 hr 10/13/18 10/17/18 10/17/18 05:42 11:49 16:25 POC Glucose 120 H 99 Vit D 1,25-Dihydroxy 22 1,25 Dihydroxy Vit D2 12 1,25 Dihydroxy Vit D3 10 10/17/18 10/18/18 21:28 07:44 POC Glucose 147 H 99 Vit D 1,25-Dihydroxy 1,25 Dihydroxy Vit D2 1,25 Dihydroxy Vit D3 - Imaging Abdomen/Pelvis CT 10/04/18 15:12 CONCLUSION: 1. Mild interstitial prominence and airspace disease in the left lung base. 2. Mildly enlarged adrenal glands which may be hyperplastic. 3. No evidence of inflammatory bowel disease, biliary obstructive disease, hydronephrosis, suspicious mass or lymphadenopathy. Chest X-Ray 10/11/18 06:00 CONCLUSION: 1. Endotracheal tube and nasogastric tube no longer seen. 2. No change in bilateral pulmonary opacity left greater than right. Assessment and Plan - Plan Acute hypoxic and hypercarbic respiratory failure/Acute severe pulmonary edema Extubated 10/09/2018 tolerating well. He is quite deconditioned. -diuresis, breathing treatments, EzPAP q6, IS. -continue diuresis. with Lasix IV and metolazone. -BiPAP as needed. -Streetcar Repairer following, to continue Bronchodilator, Mucolytic and incentive spirometry. Metolazone 2.5 mg daily -encourage ambulation. PT/OT seven days a week requested. Will need SNF placement. Case management following. Acute congestive heart failure exacerbation/Hypotension 2D echo done February 2018 showed ejection fraction 50%. -Lasix IV and metolazone PO per nephrology. -follow Is and Os. HTN controlled. SBP over 200 at times. Improved. -continue hydralazine, amlodipine and Lopressor. Adjust as needed. -clonidine as needed. Chronic Kidney disease, Nephrology specialist following, patient has Anasarca continue Lasix and metolazone, following urine output. fluid restriction Diarrhea/Bilateral lower extremity cellulitis/Blisters ID consult appreciated. Cultures negative. Antibiotics have been discontinued. -Continue wound care for blisters. Morbid Obesity strongly recommended diet and exercise as outpatient. DVT Prophylaxis: Heparin Code Status: Full code Discussed Condition With: Patient and Nurse Miss Brooke Discharge Planning: Awaiting final by Nephrology specialist for discharge to SNF.
--- NOTE | 2018-10-18 09:50 | P.PNNP ---
Physical Exam Vital signs: Vital Signs 10/17/18 12:00 10/17/18 16:00 10/17/18 20:00 Temperature 97.9 F 98.4 F 98.9 F Pulse Rate 68 78 83 Respiratory Rate Blood Pressure 131/60 123/78 122/62 Pulse Oximetry 96 94 L 94 L 10/18/18 00:00 10/18/18 04:00 10/18/18 08:00 Temperature 98.2 F 98.2 F 98.1 F Pulse Rate 78 70 78 Respiratory Rate Blood Pressure 116/58 L 150/71 H 123/74 Pulse Oximetry 94 L 95 94 L Intake & Output 10/17/18 10/18/18 10/18/18 18:59 06:59 18:59 Intake Total 1800 / 1800 480 / 480 Output Total 1750 / 1750 1450 / 1450 Balance 50 / 50 -970 / -970 Weight 158.3 kg Intake: Oral 1800 / 1800 480 / 480 Output: Urine Amount (Catheter) 1750 / 1750 1450 / 1450 Indwelling Urethral Catheter 1750 / 1750 1450 / 1450 Other: Date of Last Bowel Movement 10/16/18 - Urinary Catheter Management Indwelling Urethral Catheter Cath placed during this visit: yes Reason for continuing: Other continuation reason Insertion date: 10/04/18 Insertion time: 21:39 <Alana Petty - Last Filed: 10/18/18 15:26> - Urinary Catheter Management Indwelling Urethral Catheter Cath placed during this visit: no <Urszula Quesada - Last Filed: 10/20/18 20:24> Assessment and Plan - Assessment (1) Chronic kidney disease Code(s): N18.9 - Chronic kidney disease, unspecified Status: Acute Plan: Patient has anasarca and chronic kidney disease. Continue Lasix and metolazone, tolerating well, lasix changed to PO Continue fluid restriction. Cleared per Nephrology for discharge, plan for SNF (2) Hypertension Code(s): I10 - Essential (primary) hypertension Status: Acute Plan: Blood pressure better controlled. Currently on metoprolol, hydralazine,and amlodipine. (3) Hypernatremia Code(s): E87.0 - Hyperosmolality and hypernatremia Status: Acute Plan: Resolved Will monitor. (4) Anemia Code(s): D64.9 - Anemia, unspecified Status: Acute Plan: HGB stable Will monitor <Alana Petty - Last Filed: 10/18/18 15:26> - Assessment (1) Chronic kidney disease Code(s): N18.9 - Chronic kidney disease, unspecified Status: Acute Plan: Patient seen and examined, agree with above. Continue diuretics, change to PO. Follow the urine out put and BMP. (2) Hypertension Code(s): I10 - Essential (primary) hypertension Status: Acute (3) Hypernatremia Code(s): E87.0 - Hyperosmolality and hypernatremia Status: Acute (4) Anemia Code(s): D64.9 - Anemia, unspecified Status: Acute <Urszula Quesada - Last Filed: 10/20/18 20:24>
[2018-10-18] MEDS: Furosemide 40 MG Tablet PO SCH (17:26)
--- NOTE | 2018-10-18 19:16 | P.PNPL ---
Subjective Interval history: 68 YOAA male with COPD, RF, s/p extubation. Breathing better No fever Appetite poor On 3LNC No new complaint Physical Exam Vital signs: Vital Signs 10/17/18 20:00 10/18/18 00:00 10/18/18 04:00 Temperature 98.9 F 98.2 F 98.2 F Pulse Rate 83 78 70 Respiratory Rate 18 Blood Pressure 122/62 116/58 L 150/71 H Pulse Oximetry 94 L 94 L 95 10/18/18 08:00 10/18/18 12:00 10/18/18 16:00 Temperature 98.1 F 98.0 F 98.3 F Pulse Rate 78 73 76 Respiratory Rate Blood Pressure 123/74 144/67 H 127/61 Pulse Oximetry 94 L 94 L 96 Intake & Output 10/18/18 10/18/18 10/19/18 06:59 18:59 06:59 Intake Total 480 / 480 74884 / 07723 Output Total 1450 / 1450 1450 / 1450 Balance -970 / -970 8550 / 8550 Weight 158.3 kg Intake: Oral 480 / 480 89676 / 19525 Output: Urine 1450 / 1450 Urine Amount (Catheter) 1450 / 1450 Indwelling Urethral Catheter 1450 / 1450 Other: # Bowel Movements 1 GENERAL: Obese Aa male, NAD SKIN: Warm and dry. HEAD: Normocephalic. EYES: No scleral icterus. No injection or drainage. NECK: Supple, trachea midline. No JVD or lymphadenopathy. CARDIOVASCULAR: Regular rate and rhythm without murmurs, gallops, or rubs. RESPIRATORY: Breath sounds equal bilaterally. No accessory muscle use. GASTROINTESTINAL: Abdomen soft, non-tender, nondistended. MUSCULOSKELETAL: No cyanosis, + edema. BACK: Nontender without obvious deformity. No CVA tenderness. - Urinary Catheter Management Indwelling Urethral Catheter Cath placed during this visit: yes Reason for continuing: Other continuation reason Insertion date: 10/04/18 Insertion time: 21:39 Assessment and Plan - Plan IMPRESSION: 1. Chronic obstructive pulmonary disease. 2. Obstructive sleep apnea. 3. Status post respirator. 4. Chronic kidney disease. 5. Hypertension. 6. Diabetes mellitus. PLAN: Aerosol nebs Symbicort 2 puffs bid Heparin 5000 IU q 12 hrs Supplement 02 Monitor renal functions
[2018-10-19] MEDS: Heparin - SQ 10,000 UNITS/ML Vial SQ SCH ×3 (00:55→15:14)
[2018-10-19] MEDS: Insulin NovoLIN Regular Correctional Sugar Inj SQ SCH ×2 (08:16→11:41)
[2018-10-19] MEDS: Budesonide-Formoterol 160/4.5 MCG 6 GM Inhaler INH SCH (08:16)
[2018-10-19] MEDS: amLODIPine 5 MG Tablet PO SCH (08:16)
[2018-10-19] MEDS: Metoprolol Tartrate 50 MG Tablet PO SCH (08:16)
[2018-10-19] MEDS: Furosemide 40 MG Tablet PO SCH (08:17)
--- NOTE | 2018-10-19 09:45 | P.PNNP ---
Subjective Interval history: Doing well with no complaints. Denies any shortness of breath, nausea, or vomiting. Physical Exam Vital signs: Vital Signs 10/18/18 12:00 10/18/18 16:00 10/18/18 20:00 Temperature 98.0 F 98.3 F 97.7 F Pulse Rate 73 76 84 Respiratory Rate Blood Pressure 144/67 H 127/61 157/65 H Pulse Oximetry 94 L 96 94 L 10/19/18 00:00 10/19/18 04:00 10/19/18 08:00 Temperature 97.9 F 98.1 F 98.3 F Pulse Rate 77 74 75 Respiratory Rate Blood Pressure 142/70 H 118/60 139/64 Pulse Oximetry 92 L 92 L 97 Intake & Output 10/18/18 10/19/18 10/19/18 18:59 06:59 18:59 Intake Total 40981 / 86658 Output Total 1450 / 1450 1800 / 1800 Balance 8550 / 8550 -1800 / -1800 Weight 155.1 kg Intake: Oral 00586 / 75684 Output: Urine 1450 / 1450 1800 / 1800 Other: # Bowel Movements 1 Narrative: GENERAL: Morbid Obese patient in no acute distress. SKIN: Warm and dry. No generalized rash. NECK: Neck is short and obese, supple. Negative JVD. CARDIOVASCULAR: Regular rate and rhythm. No murmurs, rubs or gallops heard. RESPIRATORY: Decreased breath sounds appreciated. ABDOMEN: Soft, obese, mildly distended, nontender. Bowel sounds hypoactive. EXTREMITIES: No clubbing, cyanosis. NEUROLOGICAL: Awake and alert. Moves upper and lower extremities. - Urinary Catheter Management Indwelling Urethral Catheter Cath placed during this visit: yes Reason for continuing: Other continuation reason Insertion date: 10/04/18 Insertion time: 21:39 Assessment and Plan - Assessment (1) Chronic kidney disease Code(s): N18.9 - Chronic kidney disease, unspecified Status: Acute Plan: Patient has anasarca and chronic kidney disease. Continue Lasix and metolazone Continue fluid restriction. Cleared per Nephrology for discharge, plan for SNF (2) Hypertension Code(s): I10 - Essential (primary) hypertension Status: Acute Plan: Blood pressure better controlled. Currently on metoprolol, hydralazine,and amlodipine. (3) Hypernatremia Code(s): E87.0 - Hyperosmolality and hypernatremia Status: Acute Plan: Resolved Will monitor. (4) Anemia Code(s): D64.9 - Anemia, unspecified Status: Acute Plan: HGB stable Will monitor
--- NOTE | 2018-10-19 10:50 | P.PN ---
Subjective Interval history: This is a pleasant 68 y/o Male admitted 10/04/18, to Intensive Care Unit with Colitis, VDRF, CHRISTAL, Morbid Obesity Intubated that day, on Pressors, Extubated 10/09. 10/17: Discussed with nurse Miss Brooke, found laying in bed sleeping. 10/18: Patient in bed, encourage ambulation, PT following, OT following, no nausea, vomit or diarrhea, not yet clear for discharge by Nephrology specialist. 10/19: Stable in his bedroom, okay to discharge to SNF by Nephrology specialist to continue Water restriction and diuretics, discussed with patient about the need for diet and exercise and weight loss warranted to Improve his condition, no nausea, vomit or diarrhea. Physical Exam Vital signs: Vital Signs 10/18/18 12:00 10/18/18 16:00 10/18/18 20:00 Temperature 98.0 F 98.3 F 97.7 F Pulse Rate 73 76 84 Respiratory Rate Blood Pressure 144/67 H 127/61 157/65 H Pulse Oximetry 94 L 96 94 L 10/19/18 00:00 10/19/18 04:00 10/19/18 08:00 Temperature 97.9 F 98.1 F 98.3 F Pulse Rate 77 74 75 Respiratory Rate Blood Pressure 142/70 H 118/60 139/64 Pulse Oximetry 92 L 92 L 97 Intake & Output 10/18/18 10/19/18 10/19/18 18:59 06:59 18:59 Intake Total 27386 / 94486 Output Total 1450 / 1450 1800 / 1800 Balance 8550 / 8550 -1800 / -1800 Weight 155.1 kg Intake: Oral 66240 / 45420 Output: Urine 1450 / 1450 1800 / 1800 Other: # Bowel Movements 1 Narrative: GENERAL: Morbid Obese patient in no acute distress. SKIN: Warm and dry. No generalized rash. NECK: Neck is short and obese, supple. Negative JVD. CARDIOVASCULAR: Regular rate and rhythm. No murmurs, rubs or gallops heard. RESPIRATORY: Decreased breath sounds appreciated. ABDOMEN: Soft, obese, mildly distended, nontender. Bowel sounds hypoactive. EXTREMITIES: No clubbing, cyanosis. Has anasarca. NEUROLOGICAL: Awake and alert. Moves upper and lower extremities. - Urinary Catheter Management Indwelling Urethral Catheter Cath placed during this visit: yes Reason for continuing: Other continuation reason Insertion date: 10/04/18 Insertion time: 21:39 Results - Labs CBC & Chem 7: 10/13/18 05:42 10/17/18 04:03 Laboratory Results - last 24 hr 10/18/18 10/18/18 10/18/18 11:53 16:48 20:17 POC Glucose 99 119 H 99 10/19/18 07:32 POC Glucose 91 - Imaging Abdomen/Pelvis CT 10/04/18 15:12 CONCLUSION: 1. Mild interstitial prominence and airspace disease in the left lung base. 2. Mildly enlarged adrenal glands which may be hyperplastic. 3. No evidence of inflammatory bowel disease, biliary obstructive disease, hydronephrosis, suspicious mass or lymphadenopathy. Chest X-Ray 10/11/18 06:00 CONCLUSION: 1. Endotracheal tube and nasogastric tube no longer seen. 2. No change in bilateral pulmonary opacity left greater than right. Assessment and Plan - Plan Acute hypoxic and hypercarbic respiratory failure/Acute severe pulmonary edema Extubated 10/09/2018 tolerating well. He is quite deconditioned. -diuresis, breathing treatments, EzPAP q6, IS. -continue diuresis. with Lasix IV and metolazone. -BiPAP as needed. -Stain Maker following, to continue Bronchodilator, Mucolytic and incentive spirometry. Metolazone 2.5 mg daily -encourage ambulation. PT/OT seven days a week requested. Will need SNF placement. Case management following. Acute congestive heart failure exacerbation/Hypotension, Improving. 2D echo done February 2018 showed ejection fraction 50%. -Lasix IV and metolazone PO per nephrology. -follow Is and Os. HTN controlled. SBP over 200 at times. Improved. -continue hydralazine, amlodipine and Lopressor. Adjust as needed. -clonidine as needed. Chronic Kidney disease, Nephrology specialist following, patient has Anasarca continue Lasix and metolazone, following urine output. fluid restriction, okay from Nephrology specialist for discharge. Diarrhea/Bilateral lower extremity cellulitis/Blisters ID consult appreciated. Cultures negative. Antibiotics have been discontinued. -Continue wound care for blisters. DM II stable okay to continue Home medicines of course will need titration and follow up on Insulin. Morbid Obesity strongly recommended diet and exercise as outpatient. DVT Prophylaxis: Heparin E-FORCSE Prescription Drug Monitoring Database has been queried and verified prior to prescribing the controlled substance. Acute pain exception. This patient has normal, predicted, physiological, and time limited response to an adverse mechanical stimulus associated with surgery, trauma, or acute illness as described in my notes. There is a lack of alternative treatment options other than to include the prescribed narcotic treatment for this condition. Code Status: Full code. Discussed Condition With: Patient, Nurse Miss Brooke and Body Masker. Discharge Planning: Discharge to SNF today.
--- NOTE | 2018-10-19 10:53 | P.DS ---
Date of admission: 10/04/18 20:11 Primary care physician: UNKNOWN Attending physician on discharge: Valentin Millan Anticipated date of discharge: 10/19/18 Brief History from admission: This is a 68-year-old morbidly obese -[place]ian male who presented to the emergency department for abdominal pain and diarrhea. CT abdomen pelvis at that time demonstrates probable colitis. Always in the emergency department he became more more somnolent as well as hypoxic. He was tried on BiPAP, but his PCO2 continued to rise. He was emergently intubated. In addition all this he has severe acute kidney injury with associated severe hyperkalemia with a potassium greater than 7 not responsive to initial medical management. On my evaluation he is intubated and sedated no new additional information is available from him. Chest x-ray demonstrates acute pulmonary edema. The patient responded to 200 mg of IV Lasix with improving potassium and so emergent dialysis was not required. Patient however does remain severely acidotic despite IV bicarbonate and a bicarbonate infusion was started. Review of systems is unobtainable. DS: Diagnosis - Discharge Diagnosis (1) Chronic kidney disease Status: Acute (2) Hypertension Status: Acute (3) Hypernatremia Status: Acute (4) Anemia Status: Acute DS: Medications - Discharge Medications Prescriptions: oxycodone-acetaminophen 1 tab PO Q4H PRN #10 tab PRN Reason: pain 3-10 DS: Summary Hospital Course: This is a pleasant 68 y/o Male admitted 10/04/18, to Intensive Care Unit with Colitis, VDRF, CHRISTAL, Morbid Obesity Intubated that day, on Pressors, Extubated 10/09. 10/17: Discussed with nurse Miss Brooke, found laying in bed sleeping. 10/18: Patient in bed, encourage ambulation, PT following, OT following, no nausea, vomit or diarrhea, not yet clear for discharge by Nephrology specialist. 10/19: Stable in his bedroom, okay to discharge to SNF by Nephrology specialist to continue Water restriction and diuretics, discussed with patient about the need for diet and exercise and weight loss warranted to Improve his condition, no nausea, vomit or diarrhea. Assessment and Plan - Plan Acute hypoxic and hypercarbic respiratory failure/Acute severe pulmonary edema Extubated 10/09/2018 tolerating well. He is quite deconditioned. -diuresis, breathing treatments, EzPAP q6, IS. -continue diuresis. with Lasix IV and metolazone. -BiPAP as needed. -Beater Tender following, to continue Bronchodilator, Mucolytic and incentive spirometry. Metolazone 2.5 mg daily -encourage ambulation. PT/OT seven days a week requested. Will need SNF placement. Case management following. Acute congestive heart failure exacerbation/Hypotension, Improving. 2D echo done February 2018 showed ejection fraction 50%. -Lasix IV and metolazone PO per nephrology. -follow Is and Os. HTN controlled. SBP over 200 at times. Improved. -continue hydralazine, amlodipine and Lopressor. Adjust as needed. -clonidine as needed. Chronic Kidney disease, Nephrology specialist following, patient has Anasarca continue Lasix and metolazone, following urine output. fluid restriction, okay from Nephrology specialist for discharge. Diarrhea/Bilateral lower extremity cellulitis/Blisters ID consult appreciated. Cultures negative. Antibiotics have been discontinued. -Continue wound care for blisters. DM II stable okay to continue Home medicines of course will need titration and follow up on Insulin. Morbid Obesity strongly recommended diet and exercise as outpatient. DVT Prophylaxis: Heparin [employer] Prescription Drug Monitoring Database has been queried and verified prior to prescribing the controlled substance. Acute pain exception. This patient has normal, predicted, physiological, and time limited response to an adverse mechanical stimulus associated with surgery, trauma, or acute illness as described in my notes. There is a lack of alternative treatment options other than to include the prescribed narcotic treatment for this condition. Code Status: Full code. Discussed Condition With: Patient, Nurse Miss Brooke and Coin Machine Assembler. Discharge Planning: Discharge to SNF today. - Time Spent with Patient Total time spent providing and/or coordinating discharge services: Greater than 30 minutes - Quality: VTE Deep Vein Thrombosis/Pulmonary Embolism Present on Admission: Yes Exam Vital signs: Vital Signs 10/18/18 12:00 10/18/18 16:00 10/18/18 20:00 Temperature 98.0 F 98.3 F 97.7 F Pulse Rate 73 76 84 Respiratory Rate 19 19 18 Blood Pressure 144/67 H 127/61 157/65 H Pulse Oximetry 94 L 96 94 L 10/19/18 00:00 10/19/18 04:00 10/19/18 08:00 Temperature 97.9 F 98.1 F 98.3 F Pulse Rate 77 74 75 Respiratory Rate 18 20 Blood Pressure 142/70 H 118/60 139/64 Pulse Oximetry 92 L 92 L 97 Intake & Output 10/18/18 10/19/18 10/19/18 18:59 06:59 18:59 Intake Total 80642 / 17959 Output Total 1450 / 1450 1800 / 1800 Balance 8550 / 8550 -1800 / -1800 Weight 155.1 kg Intake: Oral 98609 / 53548 Output: Urine 1450 / 1450 1800 / 1800 Other: # Bowel Movements 1 Narrative: GENERAL: Morbid Obese patient in no acute distress. SKIN: Warm and dry. No generalized rash. NECK: Neck is short and obese, supple. Negative JVD. CARDIOVASCULAR: Regular rate and rhythm. No murmurs, rubs or gallops heard. RESPIRATORY: Decreased breath sounds appreciated. ABDOMEN: Soft, obese, mildly distended, nontender. Bowel sounds hypoactive. EXTREMITIES: No clubbing, cyanosis. Has anasarca. NEUROLOGICAL: Awake and alert. Moves upper and lower extremities. Results Procedures completed during hospitalization: Endotracheal Intubation and Extubation Labs on day of discharge: Labs from last 24 hours 10/19/18 10/18/18 10/18/18 07:32 20:17 16:48 POC Glucose 91 99 119 H 10/18/18 11:53 POC Glucose 99 - Impressions ITS Impressions Abdomen/Pelvis CT 10/04/18 15:12 CONCLUSION: 1. Mild interstitial prominence and airspace disease in the left lung base. 2. Mildly enlarged adrenal glands which may be hyperplastic. 3. No evidence of inflammatory bowel disease, biliary obstructive disease, hydronephrosis, suspicious mass or lymphadenopathy. Chest X-Ray 10/11/18 06:00 CONCLUSION: 1. Endotracheal tube and nasogastric tube no longer seen. 2. No change in bilateral pulmonary opacity left greater than right. Discharge Plan - Discharge Disposition Patient Disposition: Discharge to SNF - Discharge Condition Condition: Stable - Discharge Order Discharge Orders: Discharge Order (Routine); Ordered 10/19/18 Ordered By: Valentin Millan - Discharge Details Anticipated Discharge Date: 10/19/18 Discharge Comment: Follow up with PCP in three days - Physicians Team Primary Care Provider: UNKNOWN, Attending Provider: Valentin Millan Other Providers: [employer]urance ; Lakeisha Lawson MD ; Anthony Hearn MD ; Urszula Quesada MD ; [facility] ; [facility]
--- NOTE | 2018-10-19 11:20 | P.PNPL ---
Subjective Interval history: 68 YOAA male with COPD, RF, s/p extubation. Breathing better No fever Appetite poor On 3LNC No new complaint Sitting at the bedside Family present Physical Exam Vital signs: Vital Signs 10/18/18 12:00 10/18/18 16:00 10/18/18 20:00 Temperature 98.0 F 98.3 F 97.7 F Pulse Rate 73 76 84 Respiratory Rate 18 Blood Pressure 144/67 H 127/61 157/65 H Pulse Oximetry 94 L 96 94 L 10/19/18 00:00 10/19/18 04:00 10/19/18 08:00 Temperature 97.9 F 98.1 F 98.3 F Pulse Rate 77 74 75 Respiratory Rate 18 20 Blood Pressure 142/70 H 118/60 139/64 Pulse Oximetry 92 L 92 L 97 Intake & Output 10/18/18 10/19/18 10/19/18 18:59 06:59 18:59 Intake Total 83187 / 11440 Output Total 1450 / 1450 1800 / 1800 Balance 8550 / 8550 -1800 / -1800 Weight 155.1 kg Intake: Oral 49028 / 93214 Output: Urine 1450 / 1450 1800 / 1800 Other: # Bowel Movements 1 GENERAL: Obese AA male, NAD SKIN: Warm and dry. HEAD: Normocephalic. EYES: No scleral icterus. No injection or drainage. NECK: Supple, trachea midline. No JVD or lymphadenopathy. CARDIOVASCULAR: Regular rate and rhythm without murmurs, gallops, or rubs. RESPIRATORY: Breath sounds equal bilaterally. No accessory muscle use. GASTROINTESTINAL: Abdomen soft, non-tender, nondistended. MUSCULOSKELETAL: No cyanosis, or edema. BACK: Nontender without obvious deformity. No CVA tenderness. - Urinary Catheter Management Indwelling Urethral Catheter Cath placed during this visit: yes Reason for continuing: Other continuation reason Insertion date: 10/04/18 Insertion time: 21:39 Assessment and Plan - Plan IMPRESSION: 1. Chronic obstructive pulmonary disease. 2. Obstructive sleep apnea. 3. Status post respirator. 4. Chronic kidney disease. 5. Hypertension. 6. Diabetes mellitus. PLAN: Aerosol nebs Symbicort 2 puffs bid Heparin 5000 IU q 12 hrs Supplement 02 Monitor renal functions DC plans for SNF
== END 2018-10-19 16:01 ==
LOC: NEPD 13:07 → NEDA 20:11 → N03 22:27 → HCIS 10-11 23:47 → N07 10-16 18:23
PROVIDERS: ADMIT Internal Medicine; ATTEND Internal Medicine

== ENCOUNTER 2018-11-09 16:40 | Inpatient (IN) ==
[2018-11-09] MEDS ORDERED: Sod Chloride 0.9% Inj 1,000 ML IV.CONT SCH (18:45)
[2018-11-09 19:35] LABS: Baso # (Auto) 0.1 th/mm3 (0.0-0.2); Baso % (Auto) 0.9 % (0.0-2.0); Eos # (Auto) 0.7 th/mm3 (0.0-0.4); Eos % (Auto) 6.2 % (0.0-4.0); Hematocrit 35.4 % (39.0-51.0); Hemoglobin 11.5 gm/dL (13.0-17.0); Lymph # (Auto) 3.4 th/mm3 (1.0-4.8); Lymph % (Auto) 29.8 % (9.0-44.0); Mean Corpuscular HGB Conc 32.5 % (32.0-36.0); Mean Corpuscular Hemoglobin 31.4 pg (27.0-34.0); Mean Corpuscular Volume 96.6 fL (80.0-100.0); Mean Platelet Volume 11.2 fL (7.0-11.0); Mono # (Auto) 0.8 th/mm3 (0.0-0.9); Mono % (Auto) 7.3 % (0.0-8.0); Neut # (Auto) 6.3 th/mm3 (1.8-7.7); Neut % (Auto) 55.8 % (16.0-70.0); Platelet Count 154 th/mm3 (150-450); Red Blood Count 3.67 mil/mm3 (4.50-5.90); Red Cell Distribution Width 14.7 % (11.6-17.2); White Blood Count 11.3 th/mm3 (4.0-11.0)
--- NOTE | 2018-11-09 19:44 | ED ---
HPI General Chief complaint: Medical Clearance Stated complaint: Medical Time Seen by Provider: 11/09/18 17:37 History of Present Illness HPI narrative: This is a 68-year-old male with a history of chronic kidney disease hypertension, hypernatremia, anemia, prostate cancer, presents today with complaints of hematuria. The patient was apparently at the nursing facility when they noted hematuria. They put a Foster catheter in and noted noam blood. They sent her here for further evaluation. The patient denies any pain. He does report that he had prostate cancer and was treated and he was in remission. He states that he is not had previous hematuria before. Patient also reports he has not seen a urologist in quite some time. There are no other complaints at the time of my examination. Related Data Home Medications Medication Instructions Recorded Confirmed albuterol sulfate [Ventolin HFA] 2 puff INHALATION DAILY 10/04/18 11/09/18 budesonide-formoterol [Symbicort] 1 puff INHALATION BID 10/04/18 11/09/18 hydralazine 100 mg PO TID 10/04/18 11/09/18 metformin 1,000 mg PO DAILY 10/04/18 11/09/18 omeprazole 40 mg PO DAILY 10/04/18 11/09/18 furosemide 40 mg PO BID 11/09/18 11/09/18 povidone-iodine [Betadine] 1 applic TOPICAL HS 11/09/18 11/09/18 sennosides 8.6 mg PO DAILY PRN 11/09/18 11/09/18 Previous Rx's Medication Instructions Recorded amlodipine [Norvasc] 5 mg PO BID tab 10/19/18 metolazone 2.5 mg PO BID tab 10/19/18 metoprolol tartrate 50 mg PO BID tab 10/19/18 oxycodone-acetaminophen 1 tab PO Q4H PRN #10 tab 10/19/18 Allergies Allergy/AdvReac Type Severity Reaction Status Date / Time No Known Allergies Allergy Verified 10/04/18 14:59 Review of Systems Constitutional Denies chills and Denies fever(s) Eyes Reports system reviewed and no additional complaints, except as docu ENT Reports system reviewed and no additional complaints, except as docu Cardiovascular Denies chest pain, Denies diaphoresis and Denies dyspnea Respiratory Denies cough and Denies dyspnea Gastrointestinal Denies abdominal pain, Denies nausea and Denies vomiting Genitourinary Reports hematuria and Reports dysuria (Slight) Musculoskeletal Denies back pain Neurologic Reports system reviewed and no additional complaints, except as docu PMFSH Social History Social History Substance History: No History of Abuse Second Hand Smoke Exposure: No Smoking Status: Current every day smoker Tobacco Type: Cigarettes How Often Do You Have a Drink Containing Alcohol: Never Recent Travel in [facility] within the Last 8 Weeks: No Recent Out of Country Travel within the Last 8 Weeks: No Immunization History Tetanus Immunization: >5 Years Exam Narrative Exam Narrative: GENERAL: Well-developed well-nourished male in no acute respiratory distress. SKIN: Focused skin assessment warm/dry. HEAD: Atraumatic. Normocephalic. EYES: No scleral icterus. No injection or drainage. ENT: No nasal bleeding or discharge. Mucous membranes pink and moist. NECK: Trachea midline. Supple. CARDIOVASCULAR: Regular rate and rhythm. No murmur appreciated. RESPIRATORY: No accessory muscle use. Clear to auscultation. Breath sounds equal bilaterally. GASTROINTESTINAL: Abdomen soft, obese, no abdominal pain noted on exam. GENITOURINARY: Foster catheter in place. Patient has gross hematuria noted in the Foster bag. MUSCULOSKELETAL: No obvious deformities. No clubbing. No cyanosis. No edema. NEUROLOGICAL: Awake and alert. No obvious cranial nerve deficits. Motor grossly within normal limits. Normal speech. Course Initial Documented Vital Signs Temperature 97.8 F 11/09/18 17:20 Pulse Rate 73 11/09/18 17:20 Respiratory Rate 18 11/09/18 17:20 Blood Pressure 148/72 H 11/09/18 17:20 Pulse Oximetry 98 11/09/18 17:20 Last Documented Vital Signs Temperature 97.6 F 11/10/18 04:32 Pulse Rate 105 H 11/10/18 04:32 Respiratory Rate 19 11/10/18 04:32 Blood Pressure 136/79 11/10/18 04:32 Pulse Oximetry 93 L 11/10/18 04:32 Sign Out Sign Out Data: Patient Sign Out occurred on 11/09/18 at 20:18. Patient's care was discussed, and care was transferred from Reinaldo Roldan MD to Delores Natarajan MD. Sign Out Comment: 68-year-old male with a history of hypertension, chronic kidney disease, anemia, previous prostate cancer, presents today with complaints of gross hematuria. Patient had a Foster catheter placed that showed gross hematuria. Labs are pending at the time of signout. He was signed out to Dr. Natarajan at change of shift. Disposition will be per her pending the laboratory testing. Last updated by Reinaldo Roldan MD at 11/09/18 19:45 Post-Handoff Eval: The patient's case was checked out to me by Dr. Roldan. Please see his initial history and physical. The patient's case was checked out to me at the conclusion of his shift. The patient presented from a local care home after developing urinary retention and had a Foster catheter placed yesterday. The patient was noted to have gross hematuria. Patient reports that he did have lower abdominal pain prior to having a catheter placed. The patient has a past medical history of prostate cancer. The patient is unsure whether he has a urologist at this time. During the course of the patient's emergency department visit, the patient's history, examination, and differential diagnosis were reviewed with the patient. The patient was placed on a rda with oximetry and frequent blood pressure monitoring. The patient had IV access obtained and blood work sent for analysis. A diagnostic evaluation was started regarding the patient's hematuria. Three-way catheter was placed in anticipation of the need for bladder irrigation. The patient was initially provided normal saline 1 L IV fluid bolus by Dr. Roldan. The patient's diagnostic evaluation is remarkable for a white count of 11.3, hemoglobin 11.5, platelets 154 with 6.2 eosinophils. The patient has mild anemia noted, however this appears to be at the patient's Baseline around 10. chemistry urinalysis reveals 100 protein large occult blood small leukocyte esterase innumerable RBCs, [address] scan of the abdomen and pelvis has been added to the patient's workup to evaluate for underlying masses given the patient's gross hematuria. CT scan of the abdomen and pelvis revealed a 4.5 cm mass in the liver, further evaluation with MRI of the liver is recommended, adrenal gland enlargement related to probable hyperplasia is noted. Foster catheter in the bladder is noted, prostatic radiation seed implants are noted. The patient's case including history, pertinent physical examination findings, and laboratory studies were discussed with Dr. Hilario. It was agreed that the patient would be admitted to the hospitalist service. The patient's results were discussed with the patient, including the plan of care. I explained that further testing and/ or monitoring is indicated based on the patient's history, examination, and/ or laboratory findings. Therefore, I recommended admission for additional evaluation. The patient expressed understanding and was agreeable with this plan. The patient was admitted to the hospital in stable condition and sent to a bed under the care of the [facility] service. Medical Decision Making MDM Narrative Medical Screen Exam Complete: Yes Emergency Medical Condition: Yes Differential Diagnosis Differential Diagnosis: Hemorrhagic cystitis versus bladder mass versus kidney stone Lab Data Result diagrams: 11/09/18 19:15 11/09/18 20:13 Lab Results 11/09/18 11/09/18 11/09/18 Range/Units 19:15 20:13 21:30 WBC 11.3 H (4.0-11.0) th/mm3 RBC 3.67 L (4.50-5.90) mil/mm3 Hgb 11.5 L (13.0-17.0) gm/dL Hct 35.4 L (39.0-51.0) % MCV 96.6 (80.0-100.0) fL MCH 31.4 (27.0-34.0) pg MCHC 32.5 (32.0-36.0) % RDW 14.7 (11.6-17.2) % Plt Count 154 (150-450) th/mm3 MPV 11.2 H (7.0-11.0) fL Neut % (Auto) 55.8 (16.0-70.0) % Lymph % (Auto) 29.8 (9.0-44.0) % [place] % (Auto) 7.3 (0.0-8.0) % Eos % (Auto) 6.2 H (0.0-4.0) % Baso % (Auto) 0.9 (0.0-2.0) % Neut # (Auto) 6.3 (1.8-7.7) th/mm3 Lymph # (Auto) 3.4 (1.0-4.8) th/mm3 [place] # (Auto) 0.8 (0.0-0.9) th/mm3 Eos # (Auto) 0.7 H (0.0-0.4) th/mm3 Baso # (Auto) 0.1 (0.0-0.2) th/mm3 WBC Differential . Differential Comment Auto diff final PT (9.8-11.6) sec INR Ratio APTT (23.4-31.7) sec Sodium 138 (136-145) meq/L Potassium 4.6 (3.5-5.1) meq/L Chloride 106 (98-107) meq/L Carbon Dioxide 22.4 (21.0-32.0) meq/L Anion Gap 10 (5-15) meq/L BUN 59 H (7-18) mg/dL Creatinine 2.10 H (0.60-1.30) mg/dL Estimated GFR 38 L (>89) mL/min Random Glucose 91 (74-106) mg/dL Calcium 9.0 (8.5-10.1) mg/dL Total Bilirubin 0.3 (0.2-1.0) mg/dL AST 14 L (15-37) U/L ALT 10 L (12-78) U/L Alkaline Phosphatase 77 (45-117) U/L Total Protein 7.6 (6.4-8.2) g/dL Albumin 3.2 L (3.4-5.0) g/dL Urine Color Red (Yellw/Straw) Urine Clarity Cloudy H (Clear) Urine pH 6.0 (5.0-8.5) Ur Specific [place] 1.011 (1.002-1.035) Urine Protein 100 H (Neg-Trace) mg/dL Urine Glucose (UA) Negative (Negative) mg/dL Urine Ketones Negative (Negative) mg/dL Urine Occult Blood Large H (Negative) Urine Nitrate Negative (Negative) Urine Bilirubin Negative (Negative) Urine Urobilinogen Less than 2 (Less than 2) mg/dL Ur Leukocyte Esterase Small H (Negative) Urine RBC (0-3) /hpf Urine WBC 14 H (0-5) /hpf Urine Mucus Few H (Occasional) /lpf Micro UA Comment Culture not ind Ur Microscopic Review Not Reportable Urine Culture Comments Culture not ind 11/09/18 Range/Units 21:30 WBC (4.0-11.0) th/mm3 RBC (4.50-5.90) mil/mm3 Hgb (13.0-17.0) gm/dL Hct (39.0-51.0) % MCV (80.0-100.0) fL MCH (27.0-34.0) pg MCHC (32.0-36.0) % RDW (11.6-17.2) % Plt Count (150-450) th/mm3 MPV (7.0-11.0) fL Neut % (Auto) (16.0-70.0) % Lymph % (Auto) (9.0-44.0) % [place] % (Auto) (0.0-8.0) % Eos % (Auto) (0.0-4.0) % Baso % (Auto) (0.0-2.0) % Neut # (Auto) (1.8-7.7) th/mm3 Lymph # (Auto) (1.0-4.8) th/mm3 [place] # (Auto) (0.0-0.9) th/mm3 Eos # (Auto) (0.0-0.4) th/mm3 Baso # (Auto) (0.0-0.2) th/mm3 WBC Differential Differential Comment PT 9.5 L (9.8-11.6) sec INR 0.9 Ratio APTT 29.6 (23.4-31.7) sec Sodium (136-145) meq/L Potassium (3.5-5.1) meq/L Chloride (98-107) meq/L Carbon Dioxide (21.0-32.0) meq/L Anion Gap (5-15) meq/L BUN (7-18) mg/dL Creatinine (0.60-1.30) mg/dL Estimated GFR (>89) mL/min Random Glucose (74-106) mg/dL Calcium (8.5-10.1) mg/dL Total Bilirubin (0.2-1.0) mg/dL AST (15-37) U/L ALT (12-78) U/L Alkaline Phosphatase (45-117) U/L Total Protein (6.4-8.2) g/dL Albumin (3.4-5.0) g/dL Urine Color (Yellw/Straw) Urine Clarity (Clear) Urine pH (5.0-8.5) Ur Specific [place] (1.002-1.035) Urine Protein (Neg-Trace) mg/dL Urine Glucose (UA) (Negative) mg/dL Urine Ketones (Negative) mg/dL Urine Occult Blood (Negative) Urine Nitrate (Negative) Urine Bilirubin (Negative) Urine Urobilinogen (Less than 2) mg/dL Ur Leukocyte Esterase (Negative) Urine RBC (0-3) /hpf Urine WBC (0-5) /hpf Urine Mucus (Occasional) /lpf Micro UA Comment Ur Microscopic Review Urine Culture Comments Imaging Data Radiologist's impression: Abdomen/Pelvis CT 11/09/18 20:17 CONCLUSION: 1. 4.5 cm mass in the liver. Further evaluation with MRI of the liver recommended. 2. The adrenal enlargement, probably hyperplasia. 3. Foster catheter in bladder. Prostatic radiation seed implants noted Discharge Plan Discharge Disposition Patient Disposition: ED Admit(ED Internal Use Only) Discharge Order Discharge Orders: ED Use Only Admit Order (Routine); Ordered 11/09/18 Ordered By: Delores Natarajan Discharge Details Diagnosis: Urinary retention, Hematuria, gross, Liver mass Physicians Team ED Provider: Delores Natarajan Primary Care Provider: UNKNOWN, Attending Provider: Harpal Hilario Other Providers: Amadeo Nunez ; [facility],Insurance Discharge Interventions Interventions: ED Discharge Assessment Last Done: 11/10/18 01:32 Vital Signs Last Done: 11/09/18 20:57 Status ED Status: Admitted Patient
[2018-11-09] MEDS ORDERED: Morphine Inj 4 MG/ML Vial IV.PUSH ONE (20:34)
--- NOTE | 2018-11-09 21:15 | CT ---
EXAM DATE: 11/09/2018 9:01 PM EST AGE/SEX: 68 years / Male INDICATIONS: Hematuria. CLINICAL DATA: This is the patient's initial encounter. Patient reports that signs and symptoms have been present for 1 day and indicates a pain score of 0/10. MEDICAL/SURGICAL HISTORY: Hypertension. Carcinoma, prostatic. Renal disease. None. RADIATION DOSE: 32.45 CTDI (mGy) COMPARISON: [facility] [place], CT ABDOMEN & PELVIS W/O CONTRAST, 10/04/2018. . TECHNIQUE: Multiple contiguous axial images were obtained through the abdomen. Images were obtained using multiple row detector helical technique. Using automated exposure control and adjustment of the mA and/or kV according to patient size, radiation dose was kept as low as reasonably achievable to o btain optimal diagnostic quality images. DICOM format image data is available electronically for rev iew and comparison. FINDINGS: Mild fibrotic changes at the lung bases. No effusion. There is a suspected 4.5 cm mass in the anterior right lobe liver. Nonspecific. This would be better evaluated with MRI of the abdomen. There is enlargement of both adrenal glands, stable since prior exam with adrenal hyperplasia. No acu te findings in the kidneys, spleen or pancreas. No calcified gallstones. No bowel obstruction. No melisa e air. No significant free fluid. Foster catheter present in the bladder. Prostatic radiation seed implants in the prostatic bed. Mild a nasarca. CONCLUSION: 1. 4.5 cm mass in the liver. Further evaluation with MRI of the liver recommended. 2. The adrenal enlargement, probably hyperplasia. 3. Foster catheter in bladder. Prostatic radiation seed implants noted Electronically signed by: Jose Landry MD 11/09/2018 9:13 PM EST
[2018-11-09 21:17] LABS: Alanine Aminotransferase 10 U/L (12-78); Albumin 3.2 g/dL (3.4-5.0); Alkaline Phosphatase 77 U/L (45-117); Anion Gap 10 meq/L (5-15); Aspartate Aminotransferase 14 U/L (15-37); Blood Urea Nitrogen 59 mg/dL (7-18); Carbon Dioxide 22.4 meq/L (21.0-32.0); Chloride 106 meq/L (98-107); Glomerular Filtration Rate 38 mL/min (>89); Glucose,Random 91 mg/dL (74-106); Potassium 4.6 meq/L (3.5-5.1); Sodium 138 meq/L (136-145); Total Protein 7.6 g/dL (6.4-8.2)
[2018-11-09 22:00] LABS: Activated Partial Thrombo Time 29.6 sec (23.4-31.7); INR 0.9 Ratio; Prothrombin Time 9.5 sec (9.8-11.6)
[2018-11-09 22:01] LABS: Bilirubin,Urine Negative (Negative); Clarity,Urine Cloudy (Clear); Color,Urine Red (Yellw/Straw); Glucose,Urine (UA) Negative (Negative); Leukocyte Esterase,Urine Small (Negative); Mucus,Urine Few /lpf (Occasional); Nitrite,Urine Negative (Negative); Specific Gravity,Urine 1.011 (1.002-1.035)
[2018-11-09] MEDS ORDERED: Bisacodyl 10 MG Supp RECTAL PRN (22:01)
[2018-11-09] MEDS ORDERED: Acetaminophen 325 MG Tablet PO PRN (22:01)
[2018-11-10 06:09] LABS: Baso # (Auto) 0.1 th/mm3 (0.0-0.2); Baso % (Auto) 0.9 % (0.0-2.0); Eos # (Auto) 0.5 th/mm3 (0.0-0.4); Eos % (Auto) 5.6 % (0.0-4.0); Hematocrit 33.5 % (39.0-51.0); Hemoglobin 11.2 gm/dL (13.0-17.0); Lymph # (Auto) 2.4 th/mm3 (1.0-4.8); Lymph % (Auto) 24.9 % (9.0-44.0); Mean Corpuscular HGB Conc 33.4 % (32.0-36.0); Mean Corpuscular Hemoglobin 32.4 pg (27.0-34.0); Mean Corpuscular Volume 96.8 fL (80.0-100.0); Mean Platelet Volume 10.7 fL (7.0-11.0); Mono # (Auto) 0.6 th/mm3 (0.0-0.9); Mono % (Auto) 6.1 % (0.0-8.0); Neut % (Auto) 62.5 % (16.0-70.0); Platelet Count 144 th/mm3 (150-450); Red Blood Count 3.46 mil/mm3 (4.50-5.90); Red Cell Distribution Width 14.6 % (11.6-17.2); White Blood Count 9.6 th/mm3 (4.0-11.0)
[2018-11-10 06:32] LABS: Albumin 2.9 g/dL (3.4-5.0); Anion Gap 8 meq/L (5-15); Aspartate Aminotransferase 10 U/L (15-37); Blood Urea Nitrogen 57 mg/dL (7-18); Calcium 8.8 mg/dL (8.5-10.1); Chloride 107 meq/L (98-107); Glomerular Filtration Rate 41 mL/min (>89); Glucose,Random 110 mg/dL (74-106); Potassium 4.4 meq/L (3.5-5.1); Sodium 140 meq/L (136-145)
[2018-11-10 06:33] LABS: Alanine Aminotransferase 9 U/L (12-78)
[2018-11-10 06:35] LABS: Alkaline Phosphatase 75 U/L (45-117); Total Protein 7.1 g/dL (6.4-8.2)
--- NOTE | 2018-11-10 08:51 | P.HPIM ---
History of Present Illness Primary Care Physician: UNKNOWN Chief Complaint: blood in the urine History of Present Illness: patient is a 68 y/o male with history of prostate cancer, CHF, COPD, hypertension and diabetes who presented to ER with Hematuria. he says that it's been going on for four days. he denies any abdominal pain, nausea, chest pain or sob. he doesn't report any fever. at the time of my evaluation he was resting comfortably with house in place with gross hematuria. Inpatient Certification Inpatient Certification: I certify that the inpatient services were ordered in accordance with Medicare regulations governing the order. This includes certification that hospital inpatient services are reasonable and necessary and in the case of services not specified as inpatient-only under 42 CFR 419.22(n), that they are appropriately provided as inpatient services in accordance to with the 2-midnight benchmark under 43 CFR 412.3(e) Estimated Total Length of Stay (Days): 2 Plans for Post Hospital Care: Not yet determined Review of Systems Review of Systems: all other systems reviewed are negative [facility] Medical History Medical History CHF (congestive heart failure) (Acute) COPD (chronic obstructive pulmonary disease) (Acute) Diabetes mellitus (Acute) HTN (hypertension) (Acute) Lymphedema (Acute) Pressure ulcer (Acute) Sleep apnea (Acute) Surgical History Surgical History History of carpal tunnel surgery of right wrist (Acute) Family History Family History Brother CAD (coronary artery disease) Social History Social History Substance History: No History of Abuse Second Hand Smoke Exposure: No Smoking Status: Current every day smoker Tobacco Type: Cigarettes How Often Do You Have a Drink Containing Alcohol: Never Recent Travel in [place] within the Last 8 Weeks: No Recent Out of Country Travel within the Last 8 Weeks: No Immunization History Tetanus Immunization: >5 Years Medications and Allergies Allergies Allergy/AdvReac Type Severity Reaction Status Date / Time No Known Allergies Allergy Verified 10/04/18 14:59 Home Medications Medication Instructions Recorded Confirmed Type albuterol sulfate [Ventolin HFA] 2 puff INHALATION DAILY 10/04/18 11/09/18 History budesonide-formoterol [Symbicort] 1 puff INHALATION BID 10/04/18 11/09/18 History hydralazine 100 mg PO TID 10/04/18 11/09/18 History metformin 1,000 mg PO DAILY 10/04/18 11/09/18 History omeprazole 40 mg PO DAILY 10/04/18 11/09/18 History furosemide 40 mg PO BID 11/09/18 11/09/18 History povidone-iodine [Betadine] 1 applic TOPICAL HS 11/09/18 11/09/18 History sennosides 8.6 mg PO DAILY PRN 11/09/18 11/09/18 History Active Medications: Active Medications Acetaminophen (Tylenol) 650 mg PO Q4H PRN PRN Reason: Temp > 100.4 Al Hydroxide/Mg Hydroxide (Milk Of Magnesia Liq) 30 ml PO Q12H PRN PRN Reason: Mild Constipation Bisacodyl (Dulcolax Supp) 10 mg RECTAL DAILY PRN PRN Reason: SEVERE CONSITIPATION Budesonide/Formoterol Fumarate (Symbicort 160/4.5 Mcg Inh) 1 puff INH BID [facility] Hydralazine HCl (Apresoline) 50 mg PO TID [facility] Lactulose (Lactulose Liq) 30 ml PO DAILY PRN PRN Reason: SEVERE CONSITIPATION Metoprolol Tartrate (Lopressor) 50 mg PO BID [facility] Ondansetron HCl (Zofran Inj) 4 mg IV.PUSH Q6H PRN PRN Reason: NAUSEA OR VOMITING Pantoprazole Sodium (Protonix) 40 mg PO DAILY [facility] Sennosides (Senokot) 17.2 mg PO Q12H PRN PRN Reason: Moderate Constipation Sodium Chloride (Ns Flush) 2 ml IV.FLUSH BID TAB[facility]A Sodium Chloride (Ns Flush) 2 ml IV.FLUSH PRN PRN PRN Reason: FLUSH AFTER USING IV ACCESS Physical Exam Vital signs: Last Vital Signs Temp 97.3 F L 11/10/18 08:00 Pulse 94 H 11/10/18 08:00 Resp 17 11/10/18 08:00 BP 125/64 11/10/18 08:00 Pulse Ox 91 L 11/10/18 08:00 Intake & Output 11/08/18 11/09/18 11/10/18 11/11/18 06:59 06:59 06:59 06:59 Intake Total 1100 / 1100 Balance 1100 / 1100 Weight 146.3 kg Constitutional no acute distress Routine HEENT Exam Eye: Present PERRL Routine Neck Exam Present supple Routine Respiratory Exam Present CTA bilaterally Routine Cardiovascular Exam Present RRR Routine Abdominal Exam Present soft Routine Extremities Exam Comments: no pedal edema. Routine Neurological Exam Present alert and oriented X3 Results Labs CBC & Chem 7: 11/10/18 05:46 11/10/18 05:46 Imaging Impressions Abdomen/Pelvis CT 11/09/18 20:17 CONCLUSION: 1. 4.5 cm mass in the liver. Further evaluation with MRI of the liver recommended. 2. The adrenal enlargement, probably hyperplasia. 3. House catheter in bladder. Prostatic radiation seed implants noted Caprini VTE Risk Assessment Caprini VTE Risk Assessment: Moderate/High Risk (score >= 2) VTE Pharmacological Exception Reason: Active bleeding Caprini Risk Assessment Model: Point Value = 1 Point Value = 2 Point Value = 3 Point Value = 5 Age 41-60 Minor surgery BMI > 25 kg/m2 Swollen legs Varicose veins or History of unexplained or recurrent spontaneous Oral contraceptives or hormone replacement Sepsis (< 1 month) Serious lung disease, including pneumonia (< 1 month) Abnormal pulmonary function Acute myocardial infarction Congestive heart failure (< 1 month) History of inflammatory bowel disease Medical patient at bed rest Age 61-74 Arthroscopic surgery Major open surgery (> 45 min) Laparoscopic surgery (> 45 min) Malignancy Confined to bed (> 72 hours) Immobilizing plaster cast Central venous access Age >= 75 History of VTE Family history of VTE Factor V Leiden Prothrombin [id number] Lupus anticoagulant Anticardiolipin antibodies Elevated serum homocysteine Heparin-induced thrombocytopenia Other congenital or acquired thrombophilia Stroke (< 1 month) Elective arthroplasty Hip, pelvis, or leg fracture Acute spinal cord injury (< 1 month) Prophylaxis Regimen: Total Risk Factor Score Risk Level Prophylaxis Regimen 0-1 Low Early ambulation 2 Moderate Order ONE of the following: *Sequential Compression Device (SCD) *Heparin 5000 units SQ BID 3-4 Higher Order ONE of the following medications: *Heparin 5000 units SQ TID *Enoxaparin/Lovenox 40 mg SQ daily (WT < 150 kg, CrCl > 30 mL/min) *Enoxaparin/Lovenox 30 mg SQ daily (WT < 150 kg, CrCl > 10-29 mL/min) *Enoxaparin/Lovenox 30 mg SQ BID (WT < 150 kg, CrCl > 30 mL/min) AND/OR *Sequential Compression Device (SCD) 5 or more Highest Order ONE of the following medications: *Heparin 5000 units SQ TID (Preferred with Epidurals) *Enoxaparin/Lovenox 40 mg SQ daily (WT < 150 kg, CrCl > 30 mL/min) *Enoxaparin/Lovenox 30 mg SQ daily (WT < 150 kg, CrCl > 10-29 mL/min) *Enoxaparin/Lovenox 30 mg SQ BID (WT < 150 kg, CrCl > 30 mL/min) AND *Sequential Compression Device (SCD) Assessment and Plan Plan A/P - Hematuria/ possible UTI with history of prostate cancer ; house in place- continue antibiotics- Urology consulted- monitor H/H. -hypertension/ CHF; will resume home meds and continue to monitor. -CKD- reanl funstion fairly stable at his baseline- continue to monitor. -diabetes mellitus; start on accu-check with SSI -COPD with no exacerbation; resume home inhalers- neb treatment as needed. -DVT prophylaxis with SCD's- no chemical prophylaxis due to hematuria. Discussed Condition With: the patient. Discharge Planning: when medically stable- awaiting urology evaluation. H&P: Quality VTE Deep Vein Thrombosis/Pulmonary Embolism Present on Admission: No
[2018-11-10] MEDS ORDERED: Dextrose 50% in Water 50 ML Vial IV.PUSH PRN (08:53)
[2018-11-10] MEDS: Metoprolol Tartrate 50 MG Tablet PO SCH ×2 (09:42→20:05)
[2018-11-10] MEDS: Budesonide-Formoterol 160/4.5 MCG 6 GM Inhaler INH SCH ×2 (09:45→20:06)
[2018-11-10] MEDS: Furosemide 40 MG Tablet PO SCH ×2 (12:07→20:05)
[2018-11-10] MEDS: Sod Chloride 0.9% Inj 1,000 ML IV.CONT SCH (12:08)
--- NOTE | 2018-11-10 13:58 | P.CONURO ---
History of Present Illness Service: Urology Consult date: 11/10/18 Requesting Physician: Lorena Plunkett Reason for Consult: Hematuria Primary Care Provider: UNKNOWN Chief Complaint: blood in the urine History of Present Illness: Patient is a 68 y/o male with history of [place] 8 prostate cancer, treated with IGRT and short course of ADT in 2012, CHF, COPD, hypertension and diabetes who presented to ER with Hematuria. he says that it's been going on for four days. he denies any abdominal pain, nausea, chest pain or sob. he doesn't report any fever. No other history. House was placed by ER, urology consulted VS and LAbs are stable. Cr is slightly elevated but improving possibly due to dehydration and diabetic nephropathy, no baseline Cr is available H/H are stable. CT scan is unremarkable urologywise. Liver cyst needs to be addressed with MRI as recommended. He was seen last time by Dr Yang, urologist, in 2014, PSA was 0.1 He denies seeing any other doctor since then. He is currently on CBI, urine is clear. he denies any difficulties voiding or passing a lot of clots when hematuria started but based on other notes from ER he had retention at nursing facility where he lives and house was placed, might be traumatic house placement that caused hematuria vs Irradiation cystitis. Review of Systems All other systems reviewed negative except as stated in HPI PMFSH - History History Provided By: Patient - Medical History Medical History: Medical History (Last Reviewed 11/10/18 @ 08:47 by Lorena Plunkett MD) CHF (congestive heart failure) COPD (chronic obstructive pulmonary disease) Diabetes mellitus HTN (hypertension) Lymphedema Pressure ulcer Sleep apnea - Surgical History Surgical History: Surgical History (Last Reviewed 11/10/18 @ 08:47 by Lorena Plunkett MD) History of carpal tunnel surgery of right wrist - Family History Family History: Family History Brother CAD (coronary artery disease) - Tobacco History Second Hand Smoke Exposure: No Tobacco Use In Past 30 Days: Yes Smoking Status: Current every day smoker Tobacco Type: Cigarettes - Alcohol History How Often Do You Have a Drink Containing Alcohol: Never - Substance Use History Substance History: No History of Abuse - Travel History Recent Travel in the [place] Within the Last 8 Weeks: No Recent Travel Out of the Country Within the Last 8 Weeks: No - Immunization History Tetanus Immunization: >5 Years Medications and Allergies Active Medications: Active Medications Acetaminophen (Tylenol) 650 mg PO Q4H PRN PRN Reason: Temp > 100.4 Al Hydroxide/Mg Hydroxide (Milk Of Magnesia Liq) 30 ml PO Q12H PRN PRN Reason: Mild Constipation Albuterol (Albuterol Neb (Prn)) 1.25 mg NEB Q4HR NEB PRN PRN Reason: sob Bisacodyl (Dulcolax Supp) 10 mg RECTAL DAILY PRN PRN Reason: SEVERE CONSITIPATION Budesonide/Formoterol Fumarate (Symbicort 160/4.5 Mcg Inh) 1 puff INH BID [facility] Last Admin: 11/10/18 09:45 Dose: Not Given Dextrose (D50w Vial) 50 ml IV.PUSH UNSCH PRN PRN Reason: PER HYPOGLYCEMIA PROTOCOL Furosemide (Lasix) 40 mg PO BID [facility] Last Admin: 11/10/18 12:07 Dose: 40 mg Glucagon (Glucagon Inj) 1 mg OTHER PRN PRN PRN Reason: for Hypoglycemia Protocol Hydralazine HCl (Apresoline) 50 mg PO TID [facility] Last Admin: 11/10/18 12:07 Dose: 50 mg Ceftriaxone Sodium 1,000 mg/ (Sodium Chloride) 100 mls @ 200 mls/hr IV.SIG Q24H [facility] Sodium Chloride (Ns Inj) 1,000 mls @ 60 mls/hr IV.CONT .[id number] [facility] Last Admin: 11/10/18 12:08 Dose: 60 mls/hr Insulin Aspart (Novolog Insulin Correctional Sugar Inj) 0 unit SQ ACHS [facility]; Protocol Lactulose (Lactulose Liq) 30 ml PO DAILY PRN PRN Reason: SEVERE CONSITIPATION Metoprolol Tartrate (Lopressor) 50 mg PO BID [facility] Last Admin: 11/10/18 09:42 Dose: 50 mg Ondansetron HCl (Zofran Inj) 4 mg IV.PUSH Q6H PRN PRN Reason: NAUSEA OR VOMITING Pantoprazole Sodium (Protonix) 40 mg PO DAILY [facility] Last Admin: 11/10/18 09:40 Dose: Not Given Sennosides (Senokot) 17.2 mg PO Q12H PRN PRN Reason: Moderate Constipation Sodium Chloride (Ns Flush) 2 ml IV.FLUSH BID [facility] Last Admin: 11/10/18 12:08 Dose: 2 ml Sodium Chloride (Ns Flush) 2 ml IV.FLUSH PRN PRN PRN Reason: FLUSH AFTER USING IV ACCESS Allergies Allergy/AdvReac Type Severity Reaction Status Date / Time No Known Allergies Allergy Verified 10/04/18 14:59 Home Medications Medication Instructions Recorded Confirmed Type albuterol sulfate [Ventolin HFA] 2 puff INHALATION DAILY 10/04/18 11/09/18 History budesonide-formoterol [Symbicort] 1 puff INHALATION BID 10/04/18 11/09/18 History hydralazine 100 mg PO TID 10/04/18 11/09/18 History metformin 1,000 mg PO DAILY 10/04/18 11/09/18 History omeprazole 40 mg PO DAILY 10/04/18 11/09/18 History furosemide 40 mg PO BID 11/09/18 11/09/18 History povidone-iodine [Betadine] 1 applic TOPICAL HS 11/09/18 11/09/18 History sennosides 8.6 mg PO DAILY PRN 11/09/18 11/09/18 History Physical Exam Vital Signs - 24 hr 11/09/18 17:20 11/09/18 17:23 11/09/18 20:57 Temperature 97.8 F Pulse Rate 73 70 94 H Respiratory Rate 18 18 18 Blood Pressure 148/72 H 148/72 H 121/65 Pulse Oximetry 98 98 98 11/10/18 00:12 11/10/18 04:32 11/10/18 08:00 Temperature 97.5 F L 97.6 F 97.3 F L Pulse Rate 92 H 105 H 94 H Respiratory Rate 19 19 17 Blood Pressure 126/57 L 136/79 125/64 Pulse Oximetry 93 L 93 L 91 L 11/10/18 12:00 Temperature 97.6 F Pulse Rate 79 Respiratory Rate 16 Blood Pressure 112/69 Pulse Oximetry 94 L Physical Exam: GENERAL: This is a well-nourished, well-developed patient, in no apparent distress. SKIN: No rashes, ecchymoses or lesions. Cool and dry. HEAD: Atraumatic. Normocephalic. CARDIOVASCULAR: Regular rate and rhythm without murmurs, gallops, or rubs. RESPIRATORY: Clear to auscultation. Breath sounds equal bilaterally. No wheezes , rales, or rhonchi. GASTROINTESTINAL: Abdomen soft, non-tender, nondistended. No hepato-splenomegaly , or palpable masses. No guarding. GENITOURINARY: No CVAT. House is in place MUSCULOSKELETAL: Extremities without clubbing, cyanosis, or edema. NEUROLOGICAL: Awake and alert. . Laboratory Results - last 24 hr 11/09/18 11/09/18 11/09/18 19:15 20:13 21:30 WBC 11.3 H RBC 3.67 L Hgb 11.5 L Hct 35.4 L MCV 96.6 MCH 31.4 MCHC 32.5 RDW 14.7 Plt Count 154 MPV 11.2 H Neut % (Auto) 55.8 Lymph % (Auto) 29.8 [place] % (Auto) 7.3 Eos % (Auto) 6.2 H Baso % (Auto) 0.9 Neut # (Auto) 6.3 Lymph # (Auto) 3.4 [place] # (Auto) 0.8 Eos # (Auto) 0.7 H Baso # (Auto) 0.1 WBC Differential . Differential Comment Auto diff final PT INR APTT Sodium 138 Potassium 4.6 Chloride 106 Carbon Dioxide 22.4 Anion Gap 10 BUN 59 H Creatinine 2.10 H Estimated GFR 38 L POC Glucose Random Glucose 91 Calcium 9.0 Total Bilirubin 0.3 AST 14 L ALT 10 L Alkaline Phosphatase 77 Total Protein 7.6 Albumin 3.2 L Urine Color Red Urine Clarity Cloudy H Urine pH 6.0 Ur Specific [place] 1.011 Urine Protein 100 H Urine Glucose (UA) Negative Urine Ketones Negative Urine Occult Blood Large H Urine Nitrate Negative Urine Bilirubin Negative Urine Urobilinogen Less than 2 Ur Leukocyte Esterase Small H Urine RBC Urine WBC 14 H Urine Mucus Few H Micro UA Comment Culture not ind Ur Microscopic Review Not Reportable Urine Culture Comments Culture not ind 11/09/18 11/10/18 11/10/18 21:30 05:46 05:46 WBC 9.6 RBC 3.46 L Hgb 11.2 L Hct 33.5 L MCV 96.8 MCH 32.4 MCHC 33.4 RDW 14.6 Plt Count 144 L MPV 10.7 Neut % (Auto) 62.5 Lymph % (Auto) 24.9 [place] % (Auto) 6.1 Eos % (Auto) 5.6 H Baso % (Auto) 0.9 Neut # (Auto) 6.0 Lymph # (Auto) 2.4 [place] # (Auto) 0.6 Eos # (Auto) 0.5 H Baso # (Auto) 0.1 WBC Differential . Differential Comment Auto diff final PT 9.5 L INR 0.9 APTT 29.6 Sodium 140 Potassium 4.4 Chloride 107 Carbon Dioxide 25.0 Anion Gap 8 BUN 57 H Creatinine 1.98 H Estimated GFR 41 L POC Glucose Random Glucose 110 H Calcium 8.8 Total Bilirubin 0.3 AST 10 L ALT 9 L Alkaline Phosphatase 75 Total Protein 7.1 Albumin 2.9 L Urine Color Urine Clarity Urine pH Ur Specific [place] Urine Protein Urine Glucose (UA) Urine Ketones Urine Occult Blood Urine Nitrate Urine Bilirubin Urine Urobilinogen Ur Leukocyte Esterase Urine RBC Urine WBC Urine Mucus Micro UA Comment Ur Microscopic Review Urine Culture Comments 11/10/18 12:06 WBC RBC Hgb Hct MCV MCH MCHC RDW Plt Count MPV Neut % (Auto) Lymph % (Auto) [place] % (Auto) Eos % (Auto) Baso % (Auto) Neut # (Auto) Lymph # (Auto) [place] # (Auto) Eos # (Auto) Baso # (Auto) WBC Differential Differential Comment PT INR APTT Sodium Potassium Chloride Carbon Dioxide Anion Gap BUN Creatinine Estimated GFR POC Glucose 93 Random Glucose Calcium Total Bilirubin AST ALT Alkaline Phosphatase Total Protein Albumin Urine Color Urine Clarity Urine pH Ur Specific [place] Urine Protein Urine Glucose (UA) Urine Ketones Urine Occult Blood Urine Nitrate Urine Bilirubin Urine Urobilinogen Ur Leukocyte Esterase Urine RBC Urine WBC Urine Mucus Micro UA Comment Ur Microscopic Review Urine Culture Comments Result Diagrams: 11/10/18 05:46 11/10/18 05:46 Imaging: ITS Impressions Abdomen/Pelvis CT 11/09/18 20:17 CONCLUSION: 1. 4.5 cm mass in the liver. Further evaluation with MRI of the liver recommended. 2. The adrenal enlargement, probably hyperplasia. 3. House catheter in bladder. Prostatic radiation seed implants noted Assessment and Plan - Plan 68y.o M with Irradiation cystitis/hematuria House is in place, draining well. No clots - No acute intervention needed, He does not need to be NPO from stand point - Continue care as per primary team - Keep House in place until hematuria resolves, if gets clogged irrigate manually - Try to wean off CBI and stop it at AM tomorrow, if remains clear stop CBI and remove house in 48hrs after starting flomax - Start Flomax and Proscar daily, needs to continue them after d/c at home - Pt to f/u with Urology after d/c as outpt for cystoscopy Discussed Condition With: Dr Mayra STONE attending who agrees with this plan
[2018-11-10] MEDS: Finasteride 5 MG Tablet PO SCH (17:22)
[2018-11-10] MEDS: Insulin NovoLOG Aspart Correctional Sugar Inj SQ SCH ×2 (17:23→20:05)
[2018-11-11] MEDS: Sod Chloride 0.9% Inj 1,000 ML IV.CONT SCH ×2 (05:34→20:09)
[2018-11-11 05:46] LABS: Baso # (Auto) 0.1 th/mm3 (0.0-0.2); Baso % (Auto) 0.8 % (0.0-2.0); Eos # (Auto) 0.5 th/mm3 (0.0-0.4); Eos % (Auto) 5.4 % (0.0-4.0); Hematocrit 32.7 % (39.0-51.0); Hemoglobin 11.1 gm/dL (13.0-17.0); Lymph # (Auto) 2.3 th/mm3 (1.0-4.8); Lymph % (Auto) 26.4 % (9.0-44.0); Mean Corpuscular HGB Conc 33.9 % (32.0-36.0); Mean Corpuscular Hemoglobin 32.3 pg (27.0-34.0); Mean Corpuscular Volume 95.2 fL (80.0-100.0); Mean Platelet Volume 10.7 fL (7.0-11.0); Mono # (Auto) 0.6 th/mm3 (0.0-0.9); Mono % (Auto) 6.9 % (0.0-8.0); Neut # (Auto) 5.2 th/mm3 (1.8-7.7); Neut % (Auto) 60.5 % (16.0-70.0); Platelet Count 135 th/mm3 (150-450); Red Blood Count 3.43 mil/mm3 (4.50-5.90); Red Cell Distribution Width 14.4 % (11.6-17.2); White Blood Count 8.5 th/mm3 (4.0-11.0)
[2018-11-11 06:01] LABS: Calcium 8.8 mg/dL (8.5-10.1); Carbon Dioxide 25.4 meq/L (21.0-32.0); Potassium 4.7 meq/L (3.5-5.1)
[2018-11-11] MEDS: Furosemide 40 MG Tablet PO SCH ×2 (08:05→20:07)
[2018-11-11] MEDS: Finasteride 5 MG Tablet PO SCH (08:05)
[2018-11-11] MEDS: Budesonide-Formoterol 160/4.5 MCG 6 GM Inhaler INH SCH ×2 (08:06→20:08)
[2018-11-11] MEDS: Metoprolol Tartrate 50 MG Tablet PO SCH ×2 (08:06→20:07)
[2018-11-11] MEDS: Insulin NovoLOG Aspart Correctional Sugar Inj SQ SCH ×4 (08:18→20:08)
--- NOTE | 2018-11-11 10:22 | P.PN ---
Subjective Interval history: Follow-up visit for hematuria, history of prostate cancer. Patient seen and examined sitting up in bed in no acute distress. He denies any fevers, chills, nausea, vomiting, diarrhea, cough or shortness of breath. States he would like to go home. Discussed with nurse reports ongoing CBI with red colored urine. Physical Exam Vital signs: Vital Signs 11/10/18 12:00 11/10/18 16:00 11/10/18 19:43 Temperature 97.6 F 97.4 F L 98.0 F Pulse Rate 79 76 79 Respiratory Rate 16 18 18 Blood Pressure 112/69 138/67 117/60 Pulse Oximetry 94 L 93 L 94 L 11/10/18 23:19 11/11/18 04:24 11/11/18 08:00 Temperature 97.9 F 97.9 F 97.9 F Pulse Rate 76 68 66 Respiratory Rate 18 18 16 Blood Pressure 112/56 L 125/66 128/76 Pulse Oximetry 95 94 L 96 Intake & Output 11/10/18 11/11/18 11/11/18 18:59 06:59 18:59 Intake Total 360 / 360 2400 / 2400 Output Total 4600 / 4600 7500 / 7500 Balance -4240 / -4240 -5100 / -5100 Weight 145 kg Intake: IV 1800 / 1800 NS Inj 1,000 ML @ 60 mls/hr IV. 1700 / 1700 CONT .[id number] [facility] Rx#:[id number] Rocephin Inj 1,000 MG In NS Inj 100 / 100 100 ML @ 200 mls/hr IV.SIG Q24H [facility] Rx#:[id number] Oral 360 / 360 600 / 600 Bladder Irrigation Fluid - 0 / 0 Amount Retained 3-way Urethral 0 / 0 Output: Urine Amount (Catheter) 4600 / 4600 7500 / 7500 3-way Urethral 4600 / 4600 7500 / 7500 Other: Bladder Irrigation Fluid - Amount Instilled 3-way Urethral 3,600 5,400 Bladder Irrigation Fluid - Amount Drained 3-way Urethral 3,600 Date of Last Bowel Movement 11/10/18 11/10/18 11/10/18 # Incontinent Bowel Movements 1 Narrative: GENERAL: Well-developed, well-nourished female sitting up in bed in no acute distress. SKIN: Warm and dry. HEAD: Atraumatic. Normocephalic. EYES: Pupils equal and round. No scleral icterus. No injection or drainage. ENT: No nasal bleeding or discharge. Mucous membranes pink and moist. NECK: Trachea midline. CARDIOVASCULAR: Regular rate and rhythm. RESPIRATORY: No accessory muscle use. Clear to auscultation. Breath sounds equal bilaterally. GASTROINTESTINAL/: Abdomen soft, non-tender, nondistended. + Bowel sounds. CBI with red tinged urine in bag. MUSCULOSKELETAL: Extremities without clubbing, cyanosis, or edema. No obvious deformities. NEUROLOGICAL: Awake, alert, oriented x3. No obvious cranial nerve deficits. Motor grossly within normal limits. Normal speech. PSYCHIATRIC: Appropriate mood and affect; insight and judgment normal. - Urinary Catheter Management 3-way Urethral Cath placed during this visit: yes Reason for continuing: Gross Hematuria Insertion date: 11/09/18 Insertion time: 20:53 Results - Labs CBC & Chem 7: 11/11/18 05:21 11/11/18 05:21 Laboratory Results - last 24 hr 11/10/18 11/10/18 11/10/18 12:06 17:21 19:55 WBC RBC Hgb Hct MCV MCH MCHC RDW Plt Count MPV Neut % (Auto) Lymph % (Auto) [place] % (Auto) Eos % (Auto) Baso % (Auto) Neut # (Auto) Lymph # (Auto) [place] # (Auto) Eos # (Auto) Baso # (Auto) WBC Differential Differential Comment Sodium Potassium Chloride Carbon Dioxide Anion Gap BUN Creatinine Estimated GFR POC Glucose 93 124 H 95 Random Glucose Calcium Prostate Specific Ag 11/11/18 11/11/18 11/11/18 05:21 05:21 05:21 WBC 8.5 RBC 3.43 L Hgb 11.1 L Hct 32.7 L MCV 95.2 MCH 32.3 MCHC 33.9 RDW 14.4 Plt Count 135 L MPV 10.7 Neut % (Auto) 60.5 Lymph % (Auto) 26.4 [place] % (Auto) 6.9 Eos % (Auto) 5.4 H Baso % (Auto) 0.8 Neut # (Auto) 5.2 Lymph # (Auto) 2.3 [place] # (Auto) 0.6 Eos # (Auto) 0.5 H Baso # (Auto) 0.1 WBC Differential . Differential Comment Auto diff final Sodium 142 Potassium 4.7 Chloride 109 H Carbon Dioxide 25.4 Anion Gap 8 BUN 52 H Creatinine 1.77 H Estimated GFR 47 L POC Glucose Random Glucose 93 Calcium 8.8 Prostate Specific Ag 0.10 11/11/18 08:03 WBC RBC Hgb Hct MCV MCH MCHC RDW Plt Count MPV Neut % (Auto) Lymph % (Auto) [place] % (Auto) Eos % (Auto) Baso % (Auto) Neut # (Auto) Lymph # (Auto) [place] # (Auto) Eos # (Auto) Baso # (Auto) WBC Differential Differential Comment Sodium Potassium Chloride Carbon Dioxide Anion Gap BUN Creatinine Estimated GFR POC Glucose 108 Random Glucose Calcium Prostate Specific Ag Assessment and Plan - Plan 68-year-old male with past medical history significant for prostate cancer, CHF, COPD, HLD and DM who presents to the emergency department 11/09 with complaints of hematuria. Hematuria, ongoing and acute UTI + pseudomonas species, pending sensitivity -Continue CBI, ongoing red tinged urine -Urology consulted, appreciate assistance. Started on Proscar and Flomax. -Urology recommends trying to stop/wean off CBI once CBI is clear, and removing Foster 48 hours after starting Flomax -Patient will need to follow-up with urology as outpatient for cystoscopy. -H&H stable, continue to monitor HTN, chronic Hx CHF, not in exacerbation -Continue home medications including Lasix, hydralazine, metoprolol. -Blood pressure and heart rate so far stable. CKD -Creatinine improving, continue IV fluids DM, chronic -Diabetic diet, continue Accu-Cheks with insulin sliding scale. Liver mass -Incidental finding on abd/pelvis CT, 4.5cm mass with recommendations for MRI. Will need to follow-up with PCP. DVT prophylaxis- SCD's no chemical prophylaxis due to hematuria. 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
[2018-11-12 05:19] LABS: Hematocrit 35.6 % (39.0-51.0); Hemoglobin 11.5 gm/dL (13.0-17.0)
[2018-11-12] MEDS: Furosemide 40 MG Tablet PO SCH ×2 (09:11→22:18)
[2018-11-12] MEDS: Metoprolol Tartrate 50 MG Tablet PO SCH ×2 (09:11→22:18)
[2018-11-12] MEDS: Finasteride 5 MG Tablet PO SCH (09:11)
[2018-11-12] MEDS: Budesonide-Formoterol 160/4.5 MCG 6 GM Inhaler INH SCH ×2 (09:20→22:18)
[2018-11-12] MEDS: Insulin NovoLOG Aspart Correctional Sugar Inj SQ SCH ×4 (09:20→22:22)
--- NOTE | 2018-11-12 10:21 | P.PN ---
Subjective Interval history: Follow-up visit for hematuria and UTI. Patient seen and examined sitting up in chair in no acute distress. Denies any fevers, chills, nausea, vomiting or diarrhea. CBI continues to have vincent colored urine. Physical Exam Vital signs: Vital Signs 11/11/18 12:00 11/11/18 16:00 11/11/18 19:50 Temperature 98.0 F 98.0 F 98 F Pulse Rate 66 72 80 Respiratory Rate 18 16 18 Blood Pressure 149/74 H 115/58 L 123/64 Pulse Oximetry 93 L 96 95 11/11/18 23:43 11/12/18 03:08 11/12/18 04:25 Temperature 97.9 F 97.7 F Pulse Rate 78 69 Respiratory Rate 19 18 Blood Pressure 132/67 150/70 H Pulse Oximetry 98 97 11/12/18 07:53 Temperature 97.3 F L Pulse Rate 73 Respiratory Rate 16 Blood Pressure 138/76 Pulse Oximetry 98 Intake & Output 11/11/18 11/12/18 11/12/18 18:59 06:59 18:59 Intake Total 1020 / 1020 820 / 820 Output Total 33558 / 55408 Balance 1020 / 1020 -13491 / -19439 Weight 143.6 kg Intake: IV 300 / 300 700 / 700 NS Inj 1,000 ML @ 60 mls/hr IV. 300 / 300 700 / 700 CONT .[id number] [facility] Rx#:[id number] Oral 720 / 720 120 / 120 Output: Urine 5850 / 5850 Urine Amount (Catheter) 27222 / 86937 3-way Urethral 37831 / 54847 Other: Bladder Irrigation Fluid - Amount Instilled 3-way Urethral 5,400 Date of Last Bowel Movement 11/10/18 11/11/18 # Bowel Movements 1 Narrative: GENERAL: Well-developed, well-nourished female sitting up in bed in no acute distress. SKIN: Warm and dry. HEAD: Atraumatic. Normocephalic. EYES: Pupils equal and round. No scleral icterus. No injection or drainage. ENT: No nasal bleeding or discharge. Mucous membranes pink and moist. NECK: Trachea midline. CARDIOVASCULAR: Regular rate and rhythm. RESPIRATORY: No accessory muscle use. Clear to auscultation. Breath sounds equal bilaterally. GASTROINTESTINAL/: Abdomen soft, non-tender, nondistended. + Bowel sounds. CBI with red tinged urine in bag. MUSCULOSKELETAL: Extremities without clubbing, cyanosis, or edema. No obvious deformities. NEUROLOGICAL: Awake, alert, oriented x3. No obvious cranial nerve deficits. Motor grossly within normal limits. Normal speech. PSYCHIATRIC: Appropriate mood and affect; insight and judgment normal. - Urinary Catheter Management 3-way Urethral Cath placed during this visit: yes Reason for continuing: Gross Hematuria Insertion date: 11/09/18 Insertion time: 20:53 Results - Labs CBC & Chem 7: 11/12/18 04:48 11/11/18 05:21 Laboratory Results - last 24 hr 11/11/18 11/11/18 11/11/18 12:08 16:58 19:49 Hgb Hct POC Glucose 112 H 134 H 114 H 11/12/18 04:48 Hgb 11.5 L Hct 35.6 L POC Glucose Microbiology 11/09/18 21:30 Clean Catch Urine Urine Culture - Final Pseudomonas aeruginosa Assessment and Plan - Plan 68-year-old male with past medical history significant for prostate cancer, CHF, COPD, HLD and DM who presents to the emergency department 11/09 with complaints of hematuria. Hematuria, ongoing and acute UTI + pseudomonas species -Continue CBI, ongoing red tinged urine today. -Urology consulted, appreciate assistance. Started on Proscar and Flomax. -Urology recommends trying to stop/wean off CBI once CBI is clear, and removing Foster 48 hours after starting Flomax. -Patient will need to follow-up with urology as outpatient for cystoscopy. - DC Ceftriaxone and transition to p.o. Cipro based on sensitivity -H&H stable, continue to monitor HTN, chronic Hx CHF, not in exacerbation -Continue home medications including Lasix, hydralazine, metoprolol. -Blood pressure and heart rate so far stable. CKD -Creatinine improving, continue IV fluids -BMP in the a.m. DM, chronic -Diabetic diet, continue Accu-Cheks with insulin sliding scale. Liver mass -Incidental finding on abd/pelvis CT, 4.5cm mass with recommendations for MRI. Will need to follow-up with PCP. DVT prophylaxis- SCD's no chemical prophylaxis due to hematuria. Discussed Condition With: Patient and nurse. Discharge Planning: Will likely DC to SNF once ready for DC.
[2018-11-12] MEDS: Sod Chloride 0.9% Inj 1,000 ML IV.CONT SCH (12:00)
[2018-11-12] MEDS: Ciprofloxacin 500 MG Tablet PO SCH (22:18)
[2018-11-13] MEDS: Sod Chloride 0.9% Inj 1,000 ML IV.CONT SCH (06:05)
[2018-11-13 07:12] LABS: Hematocrit 34.1 % (39.0-51.0); Hemoglobin 10.9 gm/dL (13.0-17.0)
[2018-11-13 07:39] LABS: Calcium 8.3 mg/dL (8.5-10.1); Carbon Dioxide 26.1 meq/L (21.0-32.0); Potassium 4.5 meq/L (3.5-5.1)
[2018-11-13] MEDS: Insulin NovoLOG Aspart Correctional Sugar Inj SQ SCH ×4 (07:41→20:18)
[2018-11-13] MEDS: Ciprofloxacin 500 MG Tablet PO SCH ×3 (07:53→20:03)
[2018-11-13] MEDS: Budesonide-Formoterol 160/4.5 MCG 6 GM Inhaler INH SCH ×3 (07:54→20:04)
[2018-11-13] MEDS: Finasteride 5 MG Tablet PO SCH ×2 (07:54→08:01)
[2018-11-13] MEDS: Metoprolol Tartrate 50 MG Tablet PO SCH ×3 (07:54→20:03)
[2018-11-13] MEDS: Furosemide 40 MG Tablet PO SCH ×3 (07:54→20:03)
--- NOTE | 2018-11-13 11:47 | XR ---
EXAM DATE: 11/13/2018 11:30 AM EST AGE/SEX: 68 years / Male INDICATIONS: Chest pain. CLINICAL DATA: This is the patient's initial encounter. Patient reports that signs and symptoms have been present for 2 days and indicates a pain score of 5/10. MEDICAL/SURGICAL HISTORY: . Congestive heart failure. Chronic obstructive pulmonary disease. Hy pertension. Lymphedema. Smoker. None. COMPARISON: [facility] [place], CHEST 1V SINGLE AP, 10/11/2018. . FINDINGS: Single AP view of the chest demonstrates cardiomegaly with cephalization of pulmonary vasculature. Th e lungs are grossly clear. CONCLUSION: Radiographic findings consistent with congestive heart failure. Electronically signed by: Domenica Garcia MD Board Certified Radiologist 11/13/2018 11:[address]
--- NOTE | 2018-11-13 16:10 | P.PNIM ---
Subjective Interval history: Patient is seen lying in bed. He does have a complaint of chest pain. Primarily left-sided. Describes it as pressure on his chest. He has had similar pain in the past however it is always resolved very quickly. He says this is been going on since yesterday. Denies any history of prior HI or stents however he is somewhat questionable on his history. No shortness of breath. No cough. No acid reflux. Does eventually say he thinks the chest pain might be gas but is not sure. No fever or chills. No nausea vomiting or diarrhea. Physical Exam Vital signs: Last Vital Signs Temp 97.8 F 11/13/18 12:00 Pulse 68 11/13/18 12:00 Resp 19 11/13/18 12:00 BP 122/70 11/13/18 12:00 Pulse Ox 93 L 11/13/18 12:00 Intake & Output 11/11/18 11/12/18 11/13/18 11/14/18 06:59 06:59 06:59 06:59 Intake Total 2760 / 2760 1940 / 1940 1300 / 1300 Output Total 26075 / 40590 95575 / 43671 5700 / 5700 3450 / 3450 Balance -9340 / -9340 -57910 / -89576 -4400 / -4400 -3450 / -3450 Weight 145 kg 143.6 kg 142.5 kg Narrative: GENERAL: Well-developed, well-nourished male sitting up in bed in no acute distress. SKIN: Warm and dry. HEAD: Atraumatic. Normocephalic. CARDIOVASCULAR: Regular rate and rhythm. No chest wall tenderness to palpitation. RESPIRATORY: No accessory muscle use. Clear to auscultation. Breath sounds equal bilaterally. GASTROINTESTINAL/: Abdomen soft, non-tender, nondistended. + Bowel sounds. CBI with pink tinged urine in bag. MUSCULOSKELETAL: Extremities without clubbing, cyanosis, or edema. No obvious deformities. NEUROLOGICAL: Awake, alert, oriented x3. No obvious cranial nerve deficits. Motor grossly within normal limits. Normal speech. PSYCHIATRIC: Appropriate mood and affect; insight and judgment normal. Urinary Catheter Management 3-way Urethral: Cath placed during this visit: yes Urethral indwelling: Yes Reason for continuing: Gross Hematuria Insertion date: 11/09/18 Insertion time: 20:53 Results Labs CBC & Chem 7: 11/13/18 06:39 11/13/18 06:39 Imaging Imaging: Impressions Chest X-Ray 11/13/18 00:00 CONCLUSION: Radiographic findings consistent with congestive heart failure. Assessment and Plan Plan 68-year-old male with past medical history significant for prostate cancer, CHF, COPD, HLD and DM who presents to the emergency department 11/09 with complaints of hematuria. Hematuria, ongoing and acute UTI + pseudomonas species -Continue CBI, ongoing red tinged urine today. -Urology consulted, appreciate assistance. Started on Proscar and Flomax. -Urology recommends trying to stop/wean off CBI once CBI is clear, and removing Foster 48 hours after starting Flomax. -Patient will need to follow-up with urology as outpatient for cystoscopy. - DC Ceftriaxone and transition to p.o. Cipro based on sensitivity -H&H stable, continue to monitor Chest pain-acute -Questionable, suspect gas. We will check troponins, chest x-ray and EKG. HTN, chronic Hx CHF, not in exacerbation -Continue home medications including Lasix, hydralazine, metoprolol. CKD with acute kidney injury -Creatinine initially 2.1 now 1.6 which appears to be close to baseline. IV fluids stopped DM, chronic -Diabetic diet, continue Accu-Cheks with insulin sliding scale. Liver mass -Incidental finding on abd/pelvis CT, 4.5cm mass with recommendations for MRI. Will need to follow-up with PCP. DVT prophylaxis- SCD's no chemical prophylaxis due to hematuria. Discussed Condition With: Patient and nurse. Discharge Planning: Will likely DC to SNF once ready for DC. Progress Note: Quality VTE Deep Vein Thrombosis/Pulmonary Embolism Present on Admission: No
--- NOTE | 2018-11-13 19:14 | ECG ---
Date Performed: 11/13/2018 Time Performed: 11:39:27 PTAGE: 68 years EKG: Sinus rhythm RIGHT VENTRICULAR HYPERTROPHY AND ST-T CHANGE POSSIBLE ANTERIOR MYOCARDIAL INFARCTION , OF INDETERMI ROSI AGE Compared to previous tracing, there's been significant Right axis deviation that suggests a possible limb lead misplacement Clinical correlation is recommended ABNORMAL ECG PREVIOUS TRACING : 10/05/2018 07.51 DOCTOR: Ji Kelley Interpretating Date/Time 11/13/2018 19:12:45
[2018-11-14] MEDS: Ciprofloxacin 500 MG Tablet PO SCH ×2 (08:18→21:25)
[2018-11-14] MEDS: Insulin NovoLOG Aspart Correctional Sugar Inj SQ SCH ×4 (08:18→21:36)
[2018-11-14] MEDS: Finasteride 5 MG Tablet PO SCH (08:19)
[2018-11-14] MEDS: Metoprolol Tartrate 50 MG Tablet PO SCH ×2 (08:19→21:25)
[2018-11-14] MEDS: Furosemide 40 MG Tablet PO SCH ×2 (08:20→21:25)
[2018-11-14] MEDS: Budesonide-Formoterol 160/4.5 MCG 6 GM Inhaler INH SCH ×2 (08:25→21:00)
--- NOTE | 2018-11-14 17:34 | P.PNIM ---
Subjective Interval history: Patient seen lying quietly in bed. He says that his chest pain that he was experiencing yesterday has resolved. He does have some heartburn today and feels that that might have been a contributing factor. No other complaints or concerns. Nursing reports no adverse events. Patient is looking forward to getting back to rehab as soon as possible. Physical Exam Vital signs: Last Vital Signs Temp 98.4 F 11/14/18 16:00 Pulse 79 11/14/18 16:00 Resp 19 11/14/18 16:00 BP 143/103 H 11/14/18 16:00 Pulse Ox 98 11/14/18 16:00 Intake & Output 11/12/18 11/13/18 11/14/18 11/15/18 06:59 06:59 06:59 06:59 Intake Total 1940 / 1940 1300 / 1300 0 / 0 Output Total 13601 / 33732 5700 / 5700 3450 / 3450 4350 / 4350 Balance -34608 / -18191 -4400 / -4400 -3450 / -3450 -4350 / -4350 Weight 143.6 kg 142.5 kg 143.6 kg Narrative: GENERAL: Well-developed, well-nourished male sitting up in bed in no acute distress. SKIN: Warm and dry. HEAD: Atraumatic. Normocephalic. CARDIOVASCULAR: Regular rate and rhythm. No chest wall tenderness to palpitation. RESPIRATORY: No accessory muscle use. Clear to auscultation. Breath sounds equal bilaterally. GASTROINTESTINAL/: Abdomen soft, non-tender, nondistended. + Bowel sounds. CBI with yellow urine in bag. MUSCULOSKELETAL: Extremities without clubbing, cyanosis, or edema. No obvious deformities. NEUROLOGICAL: Awake, alert, oriented x3. No obvious cranial nerve deficits. Motor grossly within normal limits. Normal speech. PSYCHIATRIC: Appropriate mood and affect; insight and judgment normal. Urinary Catheter Management 3-way Urethral: Cath placed during this visit: yes, but has since been removed by the nurse Urethral indwelling: Yes Insertion date: 11/09/18 Insertion time: 20:53 Removal date: 11/14/18 Removal time: 16:30 Results Labs CBC & Chem 7: 11/13/18 06:39 11/13/18 06:39 Assessment and Plan Plan 68-year-old male with past medical history significant for prostate cancer, CHF, COPD, HLD and DM who presents to the emergency department 11/09 with complaints of hematuria. Hematuria, ongoing and acute UTI + pseudomonas species -Urology consulted, appreciate assistance. Started on Proscar and Flomax. -Urology recommends trying to stop/wean off CBI once CBI is clear, and removing Foster 48 hours after starting Flomax. DC'd CBI and Foster on 11/14 -Patient will need to follow-up with urology as outpatient for cystoscopy. - DC Ceftriaxone and transition to p.o. Cipro based on sensitivity -H&H stable, continue to monitor Chest pain-resolved -Questionable, suspect gas/GERD. We will check troponins, chest x-ray and EKG. HTN, chronic Hx CHF, not in exacerbation -Continue home medications including Lasix, hydralazine, metoprolol. CKD with acute kidney injury -CHRISTAL now resolved -Creatinine initially 2.1 now 1.6 which appears to be close to baseline. IV fluids stopped DM, chronic -Diabetic diet, continue Accu-Cheks with insulin sliding scale. Liver mass -Incidental finding on abd/pelvis CT, 4.5cm mass with recommendations for MRI. Will need to follow-up with PCP. DVT prophylaxis- SCD's no chemical prophylaxis due to hematuria. Discussed Condition With: Patient and nurse. Discharge Planning: Will likely DC to SNF once ready for DC. Progress Note: Quality VTE Deep Vein Thrombosis/Pulmonary Embolism Present on Admission: No
[2018-11-15] MEDS: Insulin NovoLOG Aspart Correctional Sugar Inj SQ SCH ×4 (10:55→20:24)
[2018-11-15] MEDS: Ciprofloxacin 500 MG Tablet PO SCH ×2 (10:56→20:22)
[2018-11-15] MEDS: Budesonide-Formoterol 160/4.5 MCG 6 GM Inhaler INH SCH (10:56)
[2018-11-15] MEDS: Metoprolol Tartrate 50 MG Tablet PO SCH ×2 (10:56→20:22)
[2018-11-15] MEDS: Furosemide 40 MG Tablet PO SCH ×2 (10:56→20:22)
[2018-11-15] MEDS: Finasteride 5 MG Tablet PO SCH (10:56)
--- NOTE | 2018-11-15 17:31 | P.PNIM ---
Subjective Interval history: Patient is seen lying in bed. Foster was discontinued as CBI was generally clear. He has been urinating well since then however it is noted to be very concentrated and dark. Denies any dysuria. No fever or chills. No chest pain or shortness of breath. No nausea vomiting or diarrhea. Physical Exam Vital signs: Last Vital Signs Temp 98.2 F 11/15/18 16:00 Pulse 83 11/15/18 16:00 Resp 22 11/15/18 16:00 BP 172/81 H 11/15/18 16:00 Pulse Ox 96 11/15/18 16:00 Intake & Output 11/13/18 11/14/18 11/15/18 11/16/18 06:59 06:59 06:59 06:59 Intake Total 1300 / 1300 0 / 0 Output Total 5700 / 5700 3450 / 3450 6000 / 6000 Balance -4400 / -4400 -3450 / -3450 -6000 / -6000 Weight 142.5 kg 143.6 kg 144.2 kg Narrative: GENERAL: Well-developed, well-nourished male sitting up in bed in no acute distress. SKIN: Warm and dry. HEAD: Atraumatic. Normocephalic. CARDIOVASCULAR: Regular rate and rhythm. No chest wall tenderness to palpitation. RESPIRATORY: No accessory muscle use. Clear to auscultation. Breath sounds equal bilaterally. GASTROINTESTINAL/: Abdomen soft, non-tender, nondistended. + Bowel sounds. CBI DC'd. MUSCULOSKELETAL: Extremities without clubbing, cyanosis, or edema. No obvious deformities. NEUROLOGICAL: Awake, alert, oriented x3. No obvious cranial nerve deficits. Motor grossly within normal limits. Normal speech. PSYCHIATRIC: Appropriate mood and affect; insight and judgment normal. Urinary Catheter Management 3-way Urethral: Cath placed during this visit: yes, but has since been removed by the nurse Urethral indwelling: Yes Insertion date: 11/09/18 Insertion time: 20:53 Removal date: 11/14/18 Removal time: 16:30 Results Labs CBC & Chem 7: 11/13/18 06:39 11/13/18 06:39 Assessment and Plan Plan 68-year-old male with past medical history significant for prostate cancer, CHF, COPD, HLD and DM who presents to the emergency department 11/09 with complaints of hematuria. Hematuria, ongoing and acute UTI + pseudomonas species -Urology consulted, appreciate assistance. Started on Proscar and Flomax. -Urology recommends trying to stop/wean off CBI once CBI is clear, and removing Foster 48 hours after starting Flomax. DC'd CBI and Foster on 11/14. Urine remains very concentrated and dark -no clots but difficult to determine if any hematuria. Will encourage p.o. fluids and monitor. -Patient will need to follow-up with urology as outpatient for cystoscopy. - DC Ceftriaxone and transition to p.o. Cipro based on sensitivity -H&H stable, continue to monitor Chest pain-resolved -Questionable, suspect gas/GERD. We will check troponins, chest x-ray and EKG - all negative. HTN, chronic Hx CHF, not in exacerbation -Continue home medications including Lasix, hydralazine, metoprolol. CKD with acute kidney injury -CHRISTAL now resolved -Creatinine initially 2.1 now 1.6 which appears to be close to baseline. IV fluids stopped DM, chronic -Diabetic diet, continue Accu-Cheks with insulin sliding scale. Liver mass -Incidental finding on abd/pelvis CT, 4.5cm mass with recommendations for MRI. Will need to follow-up with PCP. DVT prophylaxis- SCD's no chemical prophylaxis due to hematuria. Discussed Condition With: Patient and nurse. Discharge Planning: Will likely DC to SNF once ready for DC. Progress Note: Quality VTE Deep Vein Thrombosis/Pulmonary Embolism Present on Admission: No
[2018-11-16] MEDS: Budesonide-Formoterol 160/4.5 MCG 6 GM Inhaler INH SCH ×2 (00:55→09:21)
[2018-11-16] MEDS: Insulin NovoLOG Aspart Correctional Sugar Inj SQ SCH ×2 (08:57→12:31)
[2018-11-16] MEDS: Furosemide 40 MG Tablet PO SCH (08:57)
[2018-11-16] MEDS: Ciprofloxacin 500 MG Tablet PO SCH (08:57)
[2018-11-16] MEDS: Metoprolol Tartrate 50 MG Tablet PO SCH (08:57)
[2018-11-16] MEDS: Finasteride 5 MG Tablet PO SCH (08:57)
[2018-11-16 09:13] VITALS: RESP 20
--- NOTE | 2018-11-16 09:23 | P.PNIM ---
Subjective Interval history: Patient is seen lying in bed. Reports that he is feeling good and would like to go home. No dysuria. He is voiding good amounts. Much clearer than previously. No fever or chills. No chest pain or shortness of breath. No nausea vomiting or Physical Exam Vital signs: Last Vital Signs Temp 97.9 F 11/16/18 08:00 Pulse 85 11/16/18 08:00 Resp 20 11/16/18 08:00 BP 132/75 11/16/18 08:00 Pulse Ox 96 11/16/18 08:00 Intake & Output 11/14/18 11/15/18 11/16/18 11/17/18 06:59 06:59 06:59 06:59 Intake Total 0 / 0 1160 / 1160 Output Total 3450 / 3450 6000 / 6000 1275 / 1275 Balance -3450 / -3450 -6000 / -6000 -115 / -115 Weight 143.6 kg 144.2 kg 143.1 kg Narrative: GENERAL: Well-developed, well-nourished male sitting up in bed in no acute distress. SKIN: Warm and dry. HEAD: Atraumatic. Normocephalic. CARDIOVASCULAR: Regular rate and rhythm. No chest wall tenderness to palpitation. RESPIRATORY: No accessory muscle use. Clear to auscultation. Breath sounds equal bilaterally. GASTROINTESTINAL/: Abdomen soft, non-tender, nondistended. + Bowel sounds. CBI DC'd. MUSCULOSKELETAL: Extremities without clubbing, cyanosis, or edema. No obvious deformities. NEUROLOGICAL: Awake, alert, oriented x3. No obvious cranial nerve deficits. Motor grossly within normal limits. Normal speech. PSYCHIATRIC: Appropriate mood and affect; insight and judgment normal. Urinary Catheter Management 3-way Urethral: Cath placed during this visit: yes, but has since been removed by the nurse Urethral indwelling: Yes Insertion date: 11/09/18 Insertion time: 20:53 Removal date: 11/14/18 Removal time: 16:30 Results Labs CBC & Chem 7: 11/13/18 06:39 11/13/18 06:39 Assessment and Plan Plan 68-year-old male with past medical history significant for prostate cancer, CHF, COPD, HLD and DM who presents to the emergency department 11/09 with complaints of hematuria. Hematuria, ongoing and acute UTI + pseudomonas species -Urology consulted, appreciate assistance. Started on Proscar and Flomax. -Urology recommends trying to stop/wean off CBI once CBI is clear, and removing Foster 48 hours after starting Flomax. DC'd CBI and Foster on 11/14. Urine clearing with no evidence of clots or hematuria at this time.. Will encourage p.o. fluids and monitor. -Patient will need to follow-up with urology as outpatient for cystoscopy. - DC Ceftriaxone and transition to p.o. Cipro based on sensitivity -H&H stable, continue to monitor Chest pain-resolved -Questionable, suspect gas/GERD. We will check troponins, chest x-ray and EKG - all negative. HTN, chronic Hx CHF, not in exacerbation -Continue home medications including Lasix, hydralazine, metoprolol. CKD with acute kidney injury -CHRISTAL now resolved -Creatinine initially 2.1 now 1.6 which appears to be close to baseline. IV fluids stopped DM, chronic -Diabetic diet, continue Accu-Cheks with insulin sliding scale. Liver mass -Incidental finding on abd/pelvis CT, 4.5cm mass with recommendations for MRI. Will need to follow-up with PCP. DVT prophylaxis- SCD's no chemical prophylaxis due to hematuria. Discussed Condition With: Patient and nurse. Discharge Planning: Will likely DC to SNF today Progress Note: Quality VTE Deep Vein Thrombosis/Pulmonary Embolism Present on Admission: No
--- NOTE | 2018-11-16 09:52 | P.DS ---
DS: Providers Date of admission: 11/09/18 21:46 Primary care physician: UNKNOWN Consults: 11/09/18 22:00 Consult to Urology Routine Consulting Provider: Amadeo Nunez Reason for Consultation: hematuria with retention Notified:: Service Spoke with:: [email or web address] Date Notified:: 11/09/18 Time Notified:: 23:24 Ordering Provider: BRET 11/09/18 22:19 HUB Only Consult Order Routine Consulting Provider: [employer],Insurance 11/10/18 11:58 HUB Only Consult Order Routine Consulting Provider: [facility],[place] Brief History from admission: patient is a 68 y/o male with history of prostate cancer, CHF, COPD, hypertension and diabetes who presented to ER with Hematuria. he says that it's been going on for four days. he denies any abdominal pain, nausea, chest pain or sob. he doesn't report any fever. at the time of my evaluation he was resting comfortably with house in place with gross hematuria. DS: Summary 68-year-old male with past medical history significant for prostate cancer, CHF, COPD, HLD and DM who presents to the emergency department 11/09 with complaints of hematuria. Hematuria, resolved UTI + pseudomonas species ; initially treated with IV Ceftriaxone and transitioned to p.o. Cipro based on sensitivity -Urology consulted. Started on Proscar and Flomax. CBI initiated and continued through 11/14/18. -Patient will need to follow-up with urology as outpatient for cystoscopy. -H&H remained stable while hospitalized. Single episode of patient reported chest pain-resolved Most likely due to gas/GERD. Troponins, chest x-ray and EKG -all negative. CKD with acute kidney injury -CHRISTAL now resolved with IVF fluids. -Creatinine initially 2.1 now 1.6 which appears to be close to baseline. Liver mass -Incidental finding on abd/pelvis CT, 4.5cm mass with recommendations for MRI. Will need to follow-up with PCP. Chronic conditions diabetes and hypertension remained stable while hospitalized. Time Spent with Patient Total time spent providing and/or coordinating discharge services: <30 min Quality: VTE Deep Vein Thrombosis/Pulmonary Embolism Present on Admission: No Exam Narrative Exam Narrative: GENERAL: Well-developed, well-nourished male sitting up in bed in no acute distress. SKIN: Warm and dry. HEAD: Atraumatic. Normocephalic. CARDIOVASCULAR: Regular rate and rhythm. No chest wall tenderness to palpitation. RESPIRATORY: No accessory muscle use. Clear to auscultation. Breath sounds equal bilaterally. GASTROINTESTINAL/: Abdomen soft, non-tender, nondistended. + Bowel sounds. CBI DC'd. MUSCULOSKELETAL: Extremities without clubbing, cyanosis, or edema. No obvious deformities. NEUROLOGICAL: Awake, alert, oriented x3. No obvious cranial nerve deficits. Motor grossly within normal limits. Normal speech. PSYCHIATRIC: Appropriate mood and affect; insight and judgment normal. Results Labs on day of discharge: Labs from last 24 hours 11/16/18 08:47 POC Glucose 109 Impressions ITS Impressions Abdomen/Pelvis CT 11/09/18 20:17 CONCLUSION: 1. 4.5 cm mass in the liver. Further evaluation with MRI of the liver recommended. 2. The adrenal enlargement, probably hyperplasia. 3. House catheter in bladder. Prostatic radiation seed implants noted Chest X-Ray 11/13/18 00:00 CONCLUSION: Radiographic findings consistent with congestive heart failure. Discharge Plan Discharge Disposition Patient Disposition: 03 Discharge to SNF Discharge Condition Condition: Stable Discharge Order Discharge Orders: Discharge Order (Routine); Ordered 11/16/18 Ordered By: Lu Henderson Discharge Details Anticipated Discharge Date: 11/16/18 Physicians Team ED Provider: Delores Natarajan Primary Care Provider: UNKNOWN, Attending Provider: Susana Barrera Other Providers: Amadeo Nunez ; [facility],Insurance ; [facility], Agency Rxs /Orders / Referrals /Forms Prescriptions: New ciprofloxacin HCl 500 mg Tablet 500 mg PO Q12HR Qty: 10 RF: 0 tamsulosin 0.4 mg Capsule 0.4 mg PO DAILY Qty: 30 RF: 0 finasteride 5 mg Tablet 5 mg PO DAILY Qty: 30 RF: 0 Continue furosemide 40 mg Tablet 40 mg PO BID RF: 0 sennosides 8.6 mg Tablet 8.6 mg PO DAILY PRN (Reason: Constipation) RF: 0 povidone-iodine [Betadine] 10 % Solution 1 applic TOPICAL HS RF: 0 omeprazole 40 mg Capsule,Delayed Release(Dr/Ec) 40 mg PO DAILY RF: 0 hydralazine 100 mg Tablet 100 mg PO TID RF: 0 metformin 1,000 mg Tablet 1,000 mg PO DAILY RF: 0 albuterol sulfate [Ventolin HFA] 90 mcg/actuation Hfa Aerosol Inhaler 2 puff INHALATION DAILY RF: 0 budesonide-formoterol [Symbicort] 160-4.5 mcg/actuation Hfa Aerosol Inhaler 1 puff INHALATION BID RF: 0 metolazone 2.5 mg Tablet 2.5 mg PO BID RF: 0 amlodipine [Norvasc] 5 mg Tablet 5 mg PO BID RF: 0 metoprolol tartrate 50 mg Tablet 50 mg PO BID RF: 0 oxycodone-acetaminophen 7.5-325 mg Tablet 1 tab PO Q4H PRN (Reason: pain 3-10) Qty: 10 RF: 0 Referrals: Primary Care Provider [Outside] - See Instructions (Please follow-up with your PCP to have them order an MRI of liver for additional evaluation of the lesion/ mass or abdomen/pelvis CT.) Amadeo Nunez MD [Physician] - See Instructions UNKNOWN, [Primary Care Provider] - See Instructions Status ED Status: Left Department
[2018-11-16 12:58] VITALS: BP 140/77; PULSE 82; TEMP 97.7; O2SAT 94
== END 2018-11-16 14:41 ==
LOC: NEPC 16:40 → NEDA 21:46 → N06 11-10 00:01
PROVIDERS: ADMIT Hospitalist; ATTEND Hospitalist